=== PATIENT | female | born 1960 | race American Indian/Alaskan Native ===

== ENCOUNTER 2018-07-29 11:26 | Emergency (ER) | payer MEDICARE ==
[2018-07-29] MEDS ORDERED: CATAPRES ONE (11:40)
[2018-07-29] MEDS ORDERED: CATAPRES PO ONE (11:40)
[2018-07-29] MEDS ORDERED: NORCO 5/325 PO ONE (13:14)
--- NOTE | 2018-07-29 13:15 | Emergency Department Report ---
ED Lower Extremity HPI - General Chief Complaint: Upper Respiratory Infection Stated Complaint: FLU LIKE/KNEE PAIN Source: patient Mode of arrival: Wheelchair Limitations: No Limitations - History of Present Illness Initial Comments: This is a 57-year-old -[place] female who presents with left knee and ankle pain from a fall 1 week ago. Patient states she tripped on some carpet at home and fell on left side. Initially she was feeling pain to left medial knee which has progressed to left ankle. Pain is worse with weight bearing and touch. She noticed swelling a few hours after incident. She is applying ice with minimal improvement of symptoms. She also complains of non-productive cough for 2 weeks. Patient states she is recovering from a upper respiratory infection which she believe is better. She denies numbness or tingling, radiating pain, or weakness. MD Complaint: leg injury (left) Onset/Timin -: week(s) Injury: Knee: Left, Ankle: Left Type of Injury: unknown Place: home Severity: severe Severity scale (0 -10): 10 Improves With: nothing Worsens With: weight bearing, movement, palpation Context: fall Associated Symptoms: swelling, able to partially bear weight, ambulatory. denies: snap/pop sensation, numbness, tingling, unable to bear weight Treatments Prior to Arrival: cold therapy, NSAIDS - Related Data Previous Rx's Medication Instructions Recorded Last Taken Type Naproxen [Naprosyn] 500 mg PO TID #12 tablet 07/29/18 Unknown Rx traMADol [Ultram 50 MG tab] 50 mg PO Q6HR PRN #8 tablet 07/29/18 Unknown Rx Allergies Allergy/AdvReac Type Severity Reaction Status Date / Time No Known Allergies Allergy Unverified 07/29/18 11:34 ED Review of Systems ROS: Stated complaint: FLU LIKE/KNEE PAIN Other details as noted in HPI Constitutional: denies: chills, fever Respiratory: denies: cough, shortness of breath, wheezing Cardiovascular: denies: chest pain, palpitations Gastrointestinal: denies: abdominal pain, nausea, diarrhea Musculoskeletal: arthralgia (left knee and ankle pain). denies: back pain, joint swelling Skin: denies: rash, lesions Neurological: denies: headache, weakness, paresthesias Psychiatric: denies: anxiety, depression ED Past Medical Hx - Past Medical History Hx Hypertension: Yes Hx Arthritis: Yes (osteo) Hx COPD: Yes Additional medical history: abd hernia - Surgical History Past Surgical History?: Yes Additional Surgical History: gastric bypass-partial 2006 - Social History Smoking Status: Former Smoker Substance Use Type: None - Medications Home Medications: Home Medications Medication Instructions Recorded Confirmed Last Taken Type Naproxen [Naprosyn] 500 mg PO TID #12 tablet 07/29/18 Unknown Rx traMADol [Ultram 50 MG tab] 50 mg PO Q6HR PRN #8 tablet 07/29/18 Unknown Rx ED Physical Exam - General Limitations: No Limitations General appearance: alert, in no apparent distress, obese (morbidley obese) - Respiratory Respiratory exam: Present: normal lung sounds bilaterally. Absent: respiratory distress - Cardiovascular Cardiovascular Exam: Present: regular rate, normal rhythm. Absent: systolic murmur, diastolic murmur, rubs, gallop - GI/Abdominal GI/Abdominal exam: Present: soft, normal bowel sounds - Expanded Lower Extremity Exam Left Hip exam: Present: normal inspection, full ROM Upper Leg exam: Present: normal inspection, full ROM Knee exam: Present: full ROM (painful), tenderness (tenderness and swelling to medial patella), swelling, crepidus, pain w/ pronation/supination, full knee extension. Absent: abrasion, laceration, ecchymosis, deformity, dislocation, erythema, effusion Lower Leg exam: Present: normal inspection, full ROM Ankle exam: Present: tenderness (swelling, tenderness, and warmth to lateral malleolus), swelling. Absent: full ROM (painful), abrasion, laceration, ecchymosis, deformity, crepidus, dislocation, erythema, anterior draw sign Foot/Toe exam: Present: normal inspection, full ROM Neuro vascular tendon exam: Present: no vascular compromise Gait: Positive: observed and limited by pain - Neurological Exam Neurological exam: Present: alert, oriented X3 - Psychiatric Psychiatric exam: Present: normal affect, normal mood - Skin Skin exam: Present: warm, dry, intact, normal color. Absent: rash ED Course Vital Signs 07/29/18 07/29/18 07/29/18 11:29 11:41 13:57 Temperature 97.8 F Pulse Rate 80 80 Respiratory 18 18 Rate Blood Pressure 223/113 223/113 Blood Pressure [Right] O2 Sat by Pulse 92 Oximetry 07/29/18 17:15 Temperature Pulse Rate 64 Respiratory 16 Rate Blood Pressure Blood Pressure 170/87 [Right] O2 Sat by Pulse 96 Oximetry - Reevaluation(s) Reevaluation #1: 07/29/18 17:17 Blood pressure trended down prior to discharge 170/87. 07/29/18 17:17 ED Lower Extremity MDM - Radiology Data Radiology results: report reviewed LEFT KNEE, 3 views: History: Left knee pain and swelling. Moderate osteoarthritic changes are identified in all 3 compartments. No evidence for fracture, bone lesion or large joint effusion. IMPRESSION: Osteoarthritis. LEFT ANKLE, 3 views: History: left ankle pain. There is moderate diffuse soft tissue swelling and edema. The bony structures are intact. Mild osteoarthritis is noted at the ankle joint. Large plantar spur. IMPRESSION: Soft tissue swelling. Osteoarthritis. Plantar spur. EXAM: VL VENOUS DUPLEX LE LT HISTORY: r/o dvt of LLE COMPARISON: None. TECHNIQUE: Duplex Doppler ultrasound of the dot veins of the left lower extremity was performed. FINDINGS: The left common femoral vein, superficial femoral vein, and popliteal vein are patent, compressible, and demonstrate normal waveforms and augmentation. The left posterior tibial vein and peroneal vein are patent and compressible. IMPRESSION: No evidence of deep venous thrombosis of the left lower extremity. - Medical Decision Making Patient was examined by me. Patient is in no acute distress. Blood pressure elevated on arrival. Given [place] 5/325 mg by mouth once while in ER. Obtained x-rays of left knee and left ankle, and duplex Doppler of left lower extremity. Left knee, Osteoarthritis. Left ankle, Soft tissue swelling. Osteoarthritis. Plantar spur. No evidence of deep venous thrombosis of the left lower extremity. Patient informed of results. Start naproxen and tramadol for pain. Asymptomatic hypertension. Patient will continue current medication and follow up with her primary care provider. Given RICE therapy instructions. Plan discussed with patient to discharge home and treat outpatient. She agreed with ER plan. Patient discharged home in stable condition. Follow up with PCP in 2-3 days. Critical care attestation.: If time is entered above; I have spent that time in minutes in the direct care of this critically ill patient, excluding procedure time. ED Disposition Clinical Impression: Left medial knee pain, Left lateral ankle pain, Asymptomatic hypertension Osteoarthritis Qualifiers: Osteoarthritis location: multiple joints Osteoarthritis type: primary Qualified Code(s): M15.0 - Primary generalized (osteo)arthritis Sprain of ankle, left Qualifiers: Encounter type: initial encounter Involved ligament of ankle: anterior talofibular ligament Qualified Code(s): S93.492A - Sprain of other ligament of left ankle, initial encounter Disposition: TO HOME OR SELFCARE Is pt being admited?: No Does the pt Need Aspirin: No Condition: Stable Instructions: Osteoarthritis (ED), Hypertension (ED), Arthralgia (ED) Additional Instructions: Rest Use ice or heat on affected area for 20 minutes and off for 2 hours. Take pain medication as needed for pain. Follow up with Primary Care Provider in 2-3 days. Prescriptions: Naproxen [Naprosyn] 500 mg PO TID #12 tablet traMADol [Ultram 50 MG tab] 50 mg PO Q6HR PRN #8 tablet PRN Reason: Pain Referrals: Jermaine JOHNSON [Other] - 3-5 Days CABRERA BROWN MD [Staff Physician] - 3-5 Days [facility] [Provider Group] - 3-5 Days Time of Disposition: 16:47
--- NOTE | 2018-07-29 14:45 | XRay Report ---
LEFT KNEE, 3 views: History: Left knee pain and swelling. Moderate osteoarthritic changes are identified in all 3 compartments. No evidence for fracture, bone lesion or large joint effusion. IMPRESSION: Osteoarthritis.
--- NOTE | 2018-07-29 14:46 | XRay Report ---
LEFT ANKLE, 3 views: History: left ankle pain. There is moderate diffuse soft tissue swelling and edema. The bony structures are intact. Mild osteoarthritis is noted at the ankle joint. Large plantar spur. IMPRESSION: Soft tissue swelling. Osteoarthritis. Plantar spur.
--- NOTE | 2018-07-29 16:44 | Vascular Lab Report ---
FINAL REPORT EXAM: VL VENOUS DUPLEX LE LT HISTORY: r/o dvt of LLE COMPARISON: None. TECHNIQUE: Duplex Doppler ultrasound of the dot veins of the left lower extremity was performed. FINDINGS: The left common femoral vein, superficial femoral vein, and popliteal vein are patent, compressible, and demonstrate normal waveforms and augmentation. The left posterior tibial vein and peroneal vein a re patent and compressible. IMPRESSION: No evidence of deep venous thrombosis of the left lower extremity.
[2018-07-29 17:16] VITALS: BP 170/87
== END 2018-07-29 17:24 | disposition home or self-care (01) ==
LOC: ED 11:26
DX: S93.492A Sprain of other ligament of left ankle, initial encounter (principal); M15.0 Primary generalized (osteo)arthritis; M25.572 Pain in left ankle and joints of left foot; I10 Essential (primary) hypertension; J44.9 Chronic obstructive pulmonary disease, unspecified; Z87.891 Personal history of nicotine dependence; W01.0XXA Fall on same level from slipping, tripping and stumbling without subsequent striking against object, initial encounter; Y93.89 Activity, other specified; Y99.8 Other external cause status; Y92.019 Unspecified place in single-family (private) house as the place of occurrence of the external cause

== ENCOUNTER 2019-05-19 14:09 | Inpatient (IN) | payer MEDICARE ==
--- NOTE | 2019-05-19 14:51 | XRay Report ---
CHEST 2 VIEWS INDICATION / CLINICAL INFORMATION: Shortness of breath. COMPARISON: None available. FINDINGS: SUPPORT DEVICES: None. HEART / MEDIASTINUM: There is moderate cardiomegaly and prominence of the central pulmonary vessels. LUNGS / PLEURA: There is mild diffuse interstitial lung disease, right greater than left. There is ol d calcified granulomatous disease in the right hemithorax. No pneumothorax. ADDITIONAL FINDINGS: No significant additional findings. IMPRESSION: Cardiomegaly with mild congestive heart failure. Signer Name: Xavier Perdomo MD Signed: 05/19/2019 2:47 PM Workstation Name: [id number]
--- NOTE | 2019-05-19 15:21 | Emergency Department Report ---
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 Note states patient was satting 76% on room air. Patient states she has been short of breath for the past month and it seemed to worsen today. O2, history of DVT/PE, leg pain, recent long travel, recent surgery, or history of ID/CVA. She states she has chronic swelling of the legs, but denies any worsening. Patient also denies any known history of CHF recurrent chest pain. MD Complaint: shortness of breath Known History Of: COPD - Related Data Previous Rx's Medication Instructions Recorded Last Taken Type Naproxen [Naprosyn] 500 mg PO TID #12 tablet 07/29/18 Unknown Rx traMADol [Ultram 50 MG tab] 50 mg PO Q6HR PRN #8 tablet 07/29/18 Unknown Rx Allergies Allergy/AdvReac Type Severity Reaction Status Date / Time No Known Allergies Allergy Unverified 07/29/18 11:34 ED Review of Systems ROS: Stated complaint: SOB/HX COPD/SENT BY Other details as noted in HPI Comment: All other systems reviewed and negative Constitutional: denies: chills, fever Eyes: denies: vision change ENT: denies: throat pain Respiratory: orthopnea, shortness of breath, SOB with exertion, SOB at rest. denies: cough Cardiovascular: denies: chest pain, palpitations, syncope Gastrointestinal: denies: abdominal pain, nausea, vomiting Musculoskeletal: denies: back pain Skin: denies: rash, lesions Neurological: denies: headache, weakness, paresthesias Psychiatric: denies: anxiety, depression Hematological/Lymphatic: denies: easy bleeding, easy bruising ED Past Medical Hx - Past Medical History Previous Medical History?: Yes Hx Hypertension: Yes Hx Arthritis: Yes (osteo) Hx COPD: Yes Additional medical history: abd hernia - Surgical History Past Surgical History?: Yes Additional Surgical History: gastric bypass-partial 2006 - Social History Smoking Status: Former Smoker Substance Use Type: None - Medications Home Medications: Home Medications Medication Instructions Recorded Confirmed Last Taken Type Naproxen [Naprosyn] 500 mg PO TID #12 tablet 07/29/18 Unknown Rx traMADol [Ultram 50 MG tab] 50 mg PO Q6HR PRN #8 tablet 07/29/18 Unknown Rx ED Physical Exam - General Limitations: No Limitations General appearance: alert, in no apparent distress - Head Head exam: Present: atraumatic, normocephalic - Eye Eye exam: Present: normal appearance. Absent: scleral icterus - Neck Neck exam: Present: normal inspection - Respiratory Respiratory exam: Present: rhonchi. Absent: respiratory distress, wheezes - Cardiovascular Cardiovascular Exam: Present: regular rate, normal rhythm. Absent: systolic murmur, diastolic murmur, rubs, gallop - GI/Abdominal GI/Abdominal exam: Present: soft, normal bowel sounds - Extremities Exam Extremities exam: Present: pedal edema (bilateral pitting edema and noted). Absent: calf tenderness - Neurological Exam Neurological exam: Present: alert, oriented X3 - Psychiatric Psychiatric exam: Present: normal affect, normal mood - Skin Skin exam: Present: warm, dry, intact, normal color. Absent: rash ED Course Vital Signs 05/19/19 05/19/19 05/19/19 11:10 11:20 15:10 Pulse Rate 59 L 52 L Respiratory 10 L 14 Rate Blood Pressure 164/95 O2 Sat by Pulse 98 99 93 Oximetry 05/19/19 05/19/19 05/19/19 15:12 15:28 15:30 Pulse Rate Respiratory 18 11 L Rate Blood Pressure 152/81 O2 Sat by Pulse 95 98 Oximetry 05/19/19 05/19/19 15:45 18:04 Pulse Rate 60 Respiratory 21 Rate Blood Pressure 166/83 166/83 O2 Sat by Pulse 94 Oximetry ED Medical Decision Making - Lab Data Result diagrams: 05/19/19 15:02 05/19/19 15:02 Lab Results 05/19/19 05/19/19 05/19/19 Range/Units 15:02 15:02 15:02 WBC 8.5 (4.5-11.0) K/mm3 RBC 4.70 (3.65-5.03) M/mm3 Hgb 12.6 (10.1-14.3) gm/dl Hct 42.5 (30.3-42.9) % MCV 91 (79-97) fl MCH 27 L (28-32) pg MCHC 30 (30-34) % RDW 18.2 H (13.2-15.2) % Plt Count 265 (140-440) K/mm3 Lymph % (Auto) 24.1 (13.4-35.0) % [place] % (Auto) 7.0 (0.0-7.3) % Eos % (Auto) 1.0 (0.0-4.3) % Baso % (Auto) 1.1 (0.0-1.8) % Lymph # 2.1 (1.2-5.4) K/mm3 [place] # 0.6 (0.0-0.8) K/mm3 Eos # 0.1 (0.0-0.4) K/mm3 Baso # 0.1 (0.0-0.1) K/mm3 Seg Neutrophils % 66.8 (40.0-70.0) % Seg Neutrophils # 5.7 (1.8-7.7) K/mm3 PT 13.9 (12.2-14.9) Sec. INR 1.08 (0.87-1.13) APTT 31.6 (24.2-36.6) Sec. POC ABG pH (7.35-7.45) POC ABG pCO2 (35-45) POC ABG pO2 (80-105) POC ABG HCO3 (22-26 mml/L) POC ABG Total CO2 (23-27mmol/L) POC ABG O2 Sat POC ABG Base Excess ((-2) - (+3)mmol/L) FiO2 % Sodium 146 H (137-145) mmol/L Potassium 4.5 (3.6-5.0) mmol/L Chloride 104.0 (98-107) mmol/L Carbon Dioxide 29 (22-30) mmol/L Anion Gap 18 mmol/L BUN 18 H (7-17) mg/dL Creatinine 1.5 H (0.7-1.2) mg/dL Estimated GFR 43 ml/min BUN/Creatinine Ratio 12 % Glucose 93 (65-100) mg/dL Calcium 9.4 (8.4-10.2) mg/dL Magnesium (1.7-2.3) mg/dL Total Bilirubin 0.40 (0.1-1.2) mg/dL AST 21 (5-40) units/L ALT 16 (7-56) units/L Alkaline Phosphatase 115 (35-129) units/L Total Creatine Kinase (30-135) units/L Troponin T (0.00-0.029) ng/mL NT-Pro-B Natriuret Pep (0-900) pg/mL Total Protein 8.4 H (6.3-8.2) g/dL Albumin 3.5 L (3.9-5) g/dL Albumin/Globulin Ratio 0.7 % 05/19/19 05/19/19 05/19/19 Range/Units 15:19 15:21 15:21 WBC (4.5-11.0) K/mm3 RBC (3.65-5.03) M/mm3 Hgb (10.1-14.3) gm/dl Hct (30.3-42.9) % MCV (79-97) fl MCH (28-32) pg MCHC (30-34) % RDW (13.2-15.2) % Plt Count (140-440) K/mm3 Lymph % (Auto) (13.4-35.0) % [place] % (Auto) (0.0-7.3) % Eos % (Auto) (0.0-4.3) % Baso % (Auto) (0.0-1.8) % Lymph # (1.2-5.4) K/mm3 [place] # (0.0-0.8) K/mm3 Eos # (0.0-0.4) K/mm3 Baso # (0.0-0.1) K/mm3 Seg Neutrophils % (40.0-70.0) % Seg Neutrophils # (1.8-7.7) K/mm3 PT (12.2-14.9) Sec. INR (0.87-1.13) APTT (24.2-36.6) Sec. POC ABG pH (7.35-7.45) POC ABG pCO2 (35-45) POC ABG pO2 (80-105) POC ABG HCO3 (22-26 mml/L) POC ABG Total CO2 (23-27mmol/L) POC ABG O2 Sat POC ABG Base Excess ((-2) - (+3)mmol/L) FiO2 % Sodium (137-145) mmol/L Potassium (3.6-5.0) mmol/L Chloride (98-107) mmol/L Carbon Dioxide (22-30) mmol/L Anion Gap mmol/L BUN (7-17) mg/dL Creatinine (0.7-1.2) mg/dL Estimated GFR ml/min BUN/Creatinine Ratio % Glucose (65-100) mg/dL Calcium (8.4-10.2) mg/dL Magnesium 2.30 (1.7-2.3) mg/dL Total Bilirubin (0.1-1.2) mg/dL AST (5-40) units/L ALT (7-56) units/L Alkaline Phosphatase (35-129) units/L Total Creatine Kinase 94 (30-135) units/L Troponin T < 0.010 (0.00-0.029) ng/mL NT-Pro-B Natriuret Pep 2138 H (0-900) pg/mL Total Protein (6.3-8.2) g/dL Albumin (3.9-5) g/dL Albumin/Globulin Ratio % 05/19/ Range/Units 15:28 WBC (4.5-11.0) K/mm3 RBC (3.65-5.03) M/mm3 Hgb (10.1-14.3) gm/dl Hct (30.3-42.9) % MCV (79-97) fl MCH (28-32) pg MCHC (30-34) % RDW (13.2-15.2) % Plt Count (140-440) K/mm3 Lymph % (Auto) (13.4-35.0) % [place] % (Auto) (0.0-7.3) % Eos % (Auto) (0.0-4.3) % Baso % (Auto) (0.0-1.8) % Lymph # (1.2-5.4) K/mm3 [place] # (0.0-0.8) K/mm3 Eos # (0.0-0.4) K/mm3 Baso # (0.0-0.1) K/mm3 Seg Neutrophils % (40.0-70.0) % Seg Neutrophils # (1.8-7.7) K/mm3 PT (12.2-14.9) Sec. INR (0.87-1.13) APTT (24.2-36.6) Sec. POC ABG pH 7.331 L (7.35-7.45) POC ABG pCO2 64.8 H (35-45) POC ABG pO2 74 L (80-105) POC ABG HCO3 34.2 (22-26 mml/L) POC ABG Total CO2 36 (23-27mmol/L) POC ABG O2 Sat 93 POC ABG Base Excess 8 ((-2) - (+3)mmol/L) FiO2 36 % Sodium (137-145) mmol/L Potassium (3.6-5.0) mmol/L Chloride (98-107) mmol/L Carbon Dioxide (22-30) mmol/L Anion Gap mmol/L BUN (7-17) mg/dL Creatinine (0.7-1.2) mg/dL Estimated GFR ml/min BUN/Creatinine Ratio % Glucose (65-100) mg/dL Calcium (8.4-10.2) mg/dL Magnesium (1.7-2.3) mg/dL Total Bilirubin (0.1-1.2) mg/dL AST (5-40) units/L ALT (7-56) units/L Alkaline Phosphatase (35-129) units/L Total Creatine Kinase (30-135) units/L Troponin T (0.00-0.029) ng/mL NT-Pro-B Natriuret Pep (0-900) pg/mL Total Protein (6.3-8.2) g/dL Albumin (3.9-5) g/dL Albumin/Globulin Ratio % - Radiology Data Radiology results: report reviewed CHEST 2 VIEWS INDICATION / CLINICAL INFORMATION: Shortness of breath. COMPARISON: None available. FINDINGS: SUPPORT DEVICES: None. HEART / MEDIASTINUM: There is moderate cardiomegaly and prominence of the central pulmonary vessels. LUNGS / PLEURA: There is mild diffuse interstitial lung disease, right greater than left. There is old calcified granulomatous disease in the right hemithorax. No pneumothorax. ADDITIONAL FINDINGS: No significant additional findings. IMPRESSION: Cardiomegaly with mild congestive heart failure. - Medical Decision Making Patient sent from Dr. Sethi, Pumlnology, due to shortness of breath and hypoxia. She was satting at 76% on room air and office. She has history of COPD, hypertension, and sleep apnea. Patient now satting at 98% with 4 L nasal cannula. Chest x-ray shows cardiomegaly with mild congestive heart failure. BNP is >1 2000. Troponin negative. All new onset CHF. Discussed patient with Dr. Lam- will admit to hospital medicine. Dr. Sethi to consult on patient upon admission. Critical care attestation.: If time is entered above; I have spent that time in minutes in the direct care of this critically ill patient, excluding procedure time. ED Disposition Clinical Impression: New onset of congestive heart failure, Hypoxia Disposition: OP ADMIT IP TO THIS HOSP Is pt being admited?: Yes Condition: Stable
[2019-05-19 15:32] LABS: Basophils # (Auto) 0.1 K/mm3 (0.0-0.1); Basophils % (Auto) 1.1 % (0.0-1.8); Eosinophils # (Auto) 0.1 K/mm3 (0.0-0.4); Lymphocytes # (Auto) 2.1 K/mm3 (1.2-5.4); Lymphocytes % (Auto) 24.1 % (13.4-35.0); Mean Corpuscular HGB Conc 30 % (30-34); Mean Corpuscular Volume 91 fl (79-97); Monocytes # (Auto) 0.6 K/mm3 (0.0-0.8); Platelet Count 265 K/mm3 (140-440); Red Cell Distribution Width 18.2 % (13.2-15.2)
[2019-05-19 15:42] LABS: INR 1.08 (0.87-1.13)
[2019-05-19 15:43] LABS: Partial Thromboplastin Time 31.6 Sec. (24.2-36.6)
[2019-05-19 15:46] LABS: Albumin 3.5 g/dL (3.9-5); Calcium 9.4 mg/dL (8.4-10.2)
[2019-05-19 15:54] LABS: Hematocrit 42.5 % (30.3-42.9); Hemoglobin 12.6 gm/dl (10.1-14.3)
--- NOTE | 2019-05-19 16:08 | Event Note ---
Date of service: 05/19/19 Face to Face: Pulmonology: Dr. Chappell This is a 58-year-old female, morbidly obese, history of sleep apnea, noncompliance, hypertension, history of COPD, sent to the emergency room by her primary floral designer salesperson for admission for new onset hypoxia. Patient has chronic shortness of breath, chronic cough, she denies DVT and pulmonary embolus risk factors. On exam, she is found to be hypoxic, with a PaO2 of 74% on room air. She states that this is new for her. Laboratory studies suggest renal insuff iciency, however, she does not have crackles or rales. She will be placed on supplemental oxygen, she'll be given a trial bolus of normal saline, there may be a prerenal component, or cardiorenal syndrome present. Plan as discussed with her floral designer salesperson of record, and admitted to the medical service for medical optimization. Vital Signs 05/19/19 05/19/19 05/19/19 11:10 11:20 15:10 Pulse Rate 59 L 52 L Respiratory 10 L 14 Rate Blood Pressure 164/95 O2 Sat by Pulse 98 99 93 Oximetry 05/19/19 15:28 Pulse Rate Respiratory Rate Blood Pressure O2 Sat by Pulse 95 Oximetry Lab Results 05/19/19 05/19/19 05/19/19 Range/Units 15:02 15:02 15:02 WBC 8.5 (4.5-11.0) K/mm3 RBC 4.70 (3.65-5.03) M/mm3 Hgb 12.6 (10.1-14.3) gm/dl Hct 42.5 (30.3-42.9) % MCV 91 (79-97) fl MCH 27 L (28-32) pg MCHC 30 (30-34) % RDW 18.2 H (13.2-15.2) % Plt Count 265 (140-440) K/mm3 Lymph % (Auto) 24.1 (13.4-35.0) % Bryan % (Auto) 7.0 (0.0-7.3) % Eos % (Auto) 1.0 (0.0-4.3) % Baso % (Auto) 1.1 (0.0-1.8) % Lymph # 2.1 (1.2-5.4) K/mm3 Bryan # 0.6 (0.0-0.8) K/mm3 Eos # 0.1 (0.0-0.4) K/mm3 Baso # 0.1 (0.0-0.1) K/mm3 Seg Neutrophils % 66.8 (40.0-70.0) % Seg Neutrophils # 5.7 (1.8-7.7) K/mm3 PT 13.9 (12.2-14.9) Sec. INR 1.08 (0.87-1.13) APTT 31.6 (24.2-36.6) Sec. POC ABG pH (7.35-7.45) POC ABG pCO2 (35-45) POC ABG pO2 (80-105) POC ABG HCO3 (22-26 mml/L) POC ABG Total CO2 (23-27mmol/L) POC ABG O2 Sat POC ABG Base Excess ((-2) - (+3)mmol/L) FiO2 % Sodium 146 H (137-145) mmol/L Potassium 4.5 (3.6-5.0) mmol/L Chloride 104.0 (98-107) mmol/L Carbon Dioxide 29 (22-30) mmol/L Anion Gap 18 mmol/L BUN 18 H (7-17) mg/dL Creatinine 1.5 H (0.7-1.2) mg/dL Estimated GFR 43 ml/min BUN/Creatinine Ratio 12 % Glucose 93 (65-100) mg/dL Calcium 9.4 (8.4-10.2) mg/dL Magnesium (1.7-2.3) mg/dL Total Bilirubin 0.40 (0.1-1.2) mg/dL AST 21 (5-40) units/L ALT 16 (7-56) units/L Alkaline Phosphatase 115 (35-129) units/L Total Creatine Kinase (30-135) units/L Troponin T (0.00-0.029) ng/mL NT-Pro-B Natriuret Pep (0-900) pg/mL Total Protein 8.4 H (6.3-8.2) g/dL Albumin 3.5 L (3.9-5) g/dL Albumin/Globulin Ratio 0.7 % 05/19/19 05/19/19 05/19/19 Range/Units 15:19 15:21 15:21 WBC (4.5-11.0) K/mm3 RBC (3.65-5.03) M/mm3 Hgb (10.1-14.3) gm/dl Hct (30.3-42.9) % MCV (79-97) fl MCH (28-32) pg MCHC (30-34) % RDW (13.2-15.2) % Plt Count (140-440) K/mm3 Lymph % (Auto) (13.4-35.0) % Bryan % (Auto) (0.0-7.3) % Eos % (Auto) (0.0-4.3) % Baso % (Auto) (0.0-1.8) % Lymph # (1.2-5.4) K/mm3 Bryan # (0.0-0.8) K/mm3 Eos # (0.0-0.4) K/mm3 Baso # (0.0-0.1) K/mm3 Seg Neutrophils % (40.0-70.0) % Seg Neutrophils # (1.8-7.7) K/mm3 PT (12.2-14.9) Sec. INR (0.87-1.13) APTT (24.2-36.6) Sec. POC ABG pH (7.35-7.45) POC ABG pCO2 (35-45) POC ABG pO2 (80-105) POC ABG HCO3 (22-26 mml/L) POC ABG Total CO2 (23-27mmol/L) POC ABG O2 Sat POC ABG Base Excess ((-2) - (+3)mmol/L) FiO2 % Sodium (137-145) mmol/L Potassium (3.6-5.0) mmol/L Chloride (98-107) mmol/L Carbon Dioxide (22-30) mmol/L Anion Gap mmol/L BUN (7-17) mg/dL Creatinine (0.7-1.2) mg/dL Estimated GFR ml/min BUN/Creatinine Ratio % Glucose (65-100) mg/dL Calcium (8.4-10.2) mg/dL Magnesium 2.30 (1.7-2.3) mg/dL Total Bilirubin (0.1-1.2) mg/dL AST (5-40) units/L ALT (7-56) units/L Alkaline Phosphatase (35-129) units/L Total Creatine Kinase 94 (30-135) units/L Troponin T < 0.010 (0.00-0.029) ng/mL NT-Pro-B Natriuret Pep 2138 H (0-900) pg/mL Total Protein (6.3-8.2) g/dL Albumin (3.9-5) g/dL Albumin/Globulin Ratio % 05/19/19 Range/Units 15:28 WBC (4.5-11.0) K/mm3 RBC (3.65-5.03) M/mm3 Hgb (10.1-14.3) gm/dl Hct (30.3-42.9) % MCV (79-97) fl MCH (28-32) pg MCHC (30-34) % RDW (13.2-15.2) % Plt Count (140-440) K/mm3 Lymph % (Auto) (13.4-35.0) % Bryan % (Auto) (0.0-7.3) % Eos % (Auto) (0.0-4.3) % Baso % (Auto) (0.0-1.8) % Lymph # (1.2-5.4) K/mm3 Bryan # (0.0-0.8) K/mm3 Eos # (0.0-0.4) K/mm3 Baso # (0.0-0.1) K/mm3 Seg Neutrophils % (40.0-70.0) % Seg Neutrophils # (1.8-7.7) K/mm3 PT (12.2-14.9) Sec. INR (0.87-1.13) APTT (24.2-36.6) Sec. POC ABG pH 7.331 L (7.35-7.45) POC ABG pCO2 64.8 H (35-45) POC ABG pO2 74 L (80-105) POC ABG HCO3 34.2 (22-26 mml/L) POC ABG Total CO2 36 (23-27mmol/L) POC ABG O2 Sat 93 POC ABG Base Excess 8 ((-2) - (+3)mmol/L) FiO2 36 % Sodium (137-145) mmol/L Potassium (3.6-5.0) mmol/L Chloride (98-107) mmol/L Carbon Dioxide (22-30) mmol/L Anion Gap mmol/L BUN (7-17) mg/dL Creatinine (0.7-1.2) mg/dL Estimated GFR ml/min BUN/Creatinine Ratio % Glucose (65-100) mg/dL Calcium (8.4-10.2) mg/dL Magnesium (1.7-2.3) mg/dL Total Bilirubin (0.1-1.2) mg/dL AST (5-40) units/L ALT (7-56) units/L Alkaline Phosphatase (35-129) units/L Total Creatine Kinase (30-135) units/L Troponin T (0.00-0.029) ng/mL NT-Pro-B Natriuret Pep (0-900) pg/mL Total Protein (6.3-8.2) g/dL Albumin (3.9-5) g/dL Albumin/Globulin Ratio %
[2019-05-19] MEDS ORDERED: cloNIDine 0.1 MG TAB PO ONE (16:14)
[2019-05-19] MEDS ORDERED: SODIUM CHLORIDE 0.9% 250ML 250 ML IV ONE (16:15)
[2019-05-19] MEDS ORDERED: FUROSEMIDE 40 MG/4 ML INJ IV ONE (16:24)
[2019-05-19] MEDS ORDERED: amLODIPine 5 MG TAB PO ONE (16:25)
--- NOTE | 2019-05-19 17:19 | History and Physical Report ---
History of Present Illness Chief complaint: I cant breathe History of present illness: 58 YO Female with Super Morbid Obesity, Obesity Hypoventilation Syndrome(Noncompliant with CPAP), HTN, OA, COPD presents to ED for evaluation. Pt states that she has experienced shortness of breath over the past 1 month with progressively worsening symptoms over the past 1 week. Pt acknowledges dypsnea on exertion, dypsnea at rest, decreased exercise tolerance, leg edema, Orthopnea/PND. Pt seen and evaluated by her Bin Packer, Dr. Sethi for shortness of breath. Pt was found to have pulse oximetry of 76% on room air. Pt instructed to seek further care at [facility]. PT seen and evaluated in ED and found to have symptoms consistent with CHF Decompensation, Acute Hypoxemic Respiratory Failure, Acute Kidney Injury. Pt denies fever, chills, CP, Palpitations, NVD, Trauma, Productive cough, BRBPR, Syncope, Individual/Family history of DVT/PE/Bleeding/Blood Clotting Disorders, prolonged travel/immobility, or recent ill contacts. No prior admission for review. All listed medication reconciled at time of admission. Past History Past Medical History: other (see hpi) Past Surgical History: Other (Gastric Bypass) Social history: . denies: smoking, alcohol abuse, prescription drug abuse Family history: diabetes, hypertension Medications and Allergies Allergies Allergy/AdvReac Type Severity Reaction Status Date / Time No Known Allergies Allergy Unverified 07/29/18 11:34 Home Medications Medication Instructions Recorded Confirmed Last Taken Type Atenolol [Tenormin] 80 mg PO QDAY 05/19/19 05/19/19 Unknown History Gabapentin 300 mg PO BID 05/19/19 05/19/19 Unknown History Lisinopril [Zestril TAB] 40 mg PO QDAY 05/19/19 05/19/19 Unknown History Multivit-Minerals/Folic Acid [One 0.4 mg PO 05/19/19 Unknown History Daily Womens 50 Plus Tab] Tylenol Pm Ex-Strength Caplet 650 mg PO 05/19/19 Unknown History Review of Systems Constitutional: no weight loss, no weight gain, no fever, no chills Ears, nose, mouth and throat: no ear pain, no ear discharge, no tinnitis, no nose pain, no nasal congestion, no nasal discharge Breasts: no change in shape, no swelling, no mass Cardiovascular: orthopnea, shortness of breath, dyspnea on exertion, paroxysmal nocturnal dyspnea, decreased exercise tolerance, no chest pain, no palpitations, no rapid/irregular heart beat, no edema, no lightheadedness Respiratory: shortness of breath, no cough, no cough with sputum, no excessive sputum Gastrointestinal: no abdominal pain, no nausea, no vomiting, no diarrhea, no constipation Genitourinary Female: no pelvic pain, no flank pain, no menorrhagia, no dysuria, no urinary frequency, no urgency, no stress incontinence Rectal: no pain, no incontinence, no bleeding Musculoskeletal: no neck pain, no shooting arm pain, no arm numbness/tingling, no low back pain Integumentary: no rash, no pruritis, no redness, no sores, no wounds, no j aundice Neurological: no head injury, no transient paralysis, no paralysis, no tingling, no seizures Psychiatric: no anxiety, no memory loss, no change in sleep habits, no sleep disturbances, no insomnia, no hypersomnia, no change in libido Endocrine: no cold intolerance, no heat intolerance, no polyphagia, no excessive thirst, no polydipsia, no polyuria Hematologic/Lymphatic: no easy bruising, no easy bleeding, no lymphadenopathy, no lymphedema Allergic/Immunologic: no urticaria, no allergic rhinitis, no persistent infections, no angioedema Exam - Constitutional Vitals: Temp Pulse Resp BP Pulse Ox 52 L 21 166/83 94 05/19/19 11:20 05/19/19 15:45 05/19/19 15:45 05/19/19 15:45 General appearance: Present: no acute distress, obese - EENT Eyes: Present: PERRL ENT: hearing intact, clear oral mucosa - Neck Neck: Present: supple, normal ROM - Respiratory Respiratory effort: normal Respiratory: bilateral: diminished, rhonchi - Cardiovascular Heart Sounds: Present: S1 & S2. Absent: rub, click - Extremities Extremities: pulses symmetrical Extremity abnormal: edema Peripheral Pulses: within normal limits - Abdominal General gastrointestinal: Present: soft, non-tender, non-distended, normal bowel sounds Female genitourinary: Present: normal - Integumentary Integumentary: Present: clear, warm, dry - Musculoskeletal Musculoskeletal: gait normal, strength equal bilaterally - Psychiatric Psychiatric: appropriate mood/affect, intact judgment & insight - Neurologic Neurologic: CNII-XII intact, moves all extremities Results - Labs CBC & Chem 7: 05/19/19 15:02 05/19/19 15:02 Labs: Abnormal lab results 05/19/19 05/19/19 05/19/19 Range/Units 15:02 15:02 15:19 MCH 27 L (28-32) pg RDW 18.2 H (13.2-15.2) % POC ABG pH (7.35-7.45) POC ABG pCO2 (35-45) POC ABG pO2 (80-105) Sodium 146 H (137-145) mmol/L BUN 18 H (7-17) mg/dL Creatinine 1.5 H (0.7-1.2) mg/dL NT-Pro-B Natriuret Pep 2138 H (0-900) pg/mL Total Protein 8.4 H (6.3-8.2) g/dL Albumin 3.5 L (3.9-5) g/dL 05/19/19 Range/Units 15:28 MCH (28-32) pg RDW (13.2-15.2) % POC ABG pH 7.331 L (7.35-7.45) POC ABG pCO2 64.8 H (35-45) POC ABG pO2 74 L (80-105) Sodium (137-145) mmol/L BUN (7-17) mg/dL Creatinine (0.7-1.2) mg/dL NT-Pro-B Natriuret Pep (0-900) pg/mL Total Protein (6.3-8.2) g/dL Albumin (3.9-5) g/dL Assessment and Plan - Patient Problems (1) CHF (congestive heart failure) Current Visit: Yes Status: Acute Qualifiers: Heart failure type: systolic Heart failure chronicity: acute Qualified Code(s): I50.21 - Acute systolic (congestive) heart failure Plan to address problem: Admit to Telemetry, Echo, Strict I/O, daily weight, BNP, thyroid panel, magnesium level, chest x ray, supplemental oxygen, pulse oximetry, (2) CAROLANN (acute kidney injury) Current Visit: Yes Status: Acute Plan to address problem: Monitor UOP w shift, Nephrology consulted, avoid nephrotoxic agents, BMP, ivf resuscitation therapy as tolerated. (3) Respiratory failure Current Visit: Yes Status: Acute Qualifiers: Chronicity: acute Respiratory failure complication: hypoxia Qualified Code(s): J96.01 - Acute respiratory failure with hypoxia Plan to address problem: Admit to telemetry, supplemental oxygen, pulse oximetry, NIPPV as clinically indicated, CT chest, chest x ray, ABG, pulmonology consulted. (4) Obesity hypoventilation syndrome Current Visit: Yes Status: Acute Plan to address problem: supplemental oxygen, NIPPV as clinically indicated, pulse oximetry, balanced diet, increased physical activity as tolerated. Outpatient bariatric surgery. (5) Hypernatremia Current Visit: Yes Status: Acute Plan to address problem: Nephrology consulted, IVF resuscitation as tolerated. (6) DVT prophylaxis Current Visit: Yes Status: Acute Plan to address problem: SCD to BLE while in bed,
[2019-05-19] MEDS ORDERED: ALBUTEROL 2.5 MG/3 ML NEBU IH PRN (17:20)
[2019-05-19] MEDS ORDERED: ONDANSETRON 4 MG/2 ML INJ IV PRN (17:20)
--- NOTE | 2019-05-19 19:34 | Cat Scan Report ---
CT OF THE CHEST WITHOUT CONTRAST INDICATION / CLINICAL INFORMATION: Dyspnea. History of COPD. TECHNIQUE: All CT scans at this location are performed using CT dose reduction for ALARA by means of automated e xposure control. COMPARISON: None available. FINDINGS: There are multiple calcified right paratracheal and pretracheal lymph nodes. There are a couple of ca lcified granuloma in the right upper lobe. There is mild bibasilar subsegmental atelectasis. The trac heobronchial tree is normal. No emphysematous changes are seen. There is no evidence of adenopathy, e ffusion or mass. There are surgical changes involving the stomach characteristic of a vertical gastric sleeve procedur e without complication. The visualized upper abdomen is otherwise unremarkable. There is mild spondyl osis. IMPRESSION: No acute abnormality. Signer Name: Xavier Perdomo MD Signed: 05/19/2019 7:29 PM Workstation Name: [id number]
[2019-05-19] MEDS: GABAPENTIN 300 MG CAP PO SCH (21:39)
[2019-05-20 09:17] LABS: Eosinophils % (Auto) 0.6 % (0.0-4.3); Monocytes # (Auto) 0.6 K/mm3 (0.0-0.8)
[2019-05-20] MEDS: atenoloL 50 MG TAB PO SCH (09:36)
[2019-05-20] MEDS: GABAPENTIN 300 MG CAP PO SCH ×2 (09:36→21:26)
[2019-05-20 09:41] LABS: Calcium 9.5 mg/dL (8.4-10.2)
[2019-05-20 09:48] LABS: Hematocrit 41.5 % (30.3-42.9); Hemoglobin 12.4 gm/dl (10.1-14.3); Lymphocytes % (Auto) 18.5 % (13.4-35.0); Mean Corpuscular HGB Conc 30 % (30-34); Mean Corpuscular Volume 90 fl (79-97); Platelet Count 252 K/mm3 (140-440); Red Blood Count 4.61 M/mm3 (3.65-5.03)
[2019-05-20 09:49] LABS: Basophils % (Auto) 0.4 % (0.0-1.8); Lymphocytes # (Auto) 1.5 K/mm3 (1.2-5.4)
[2019-05-20] MEDS ORDERED: LISINOPRIL 20 MG TAB PO SCH (10:00)
--- NOTE | 2019-05-20 13:49 | Consultation ---
History of Present Illness Consult date: 05/20/19 Reason for consult: dyspnea, COPD, obstructive sleep apnea History of present illness: PULMONARY AND CRITICAL CARE CONSULTATION DR. CARDOZA THANK YOU FOR ASKING US TO PARTICIPATE IN THE CARE OF THIS PATIENT. 58 YO Female with Super Morbid Obesity, Obesity Hypoventilation Syndrome(Noncompliant with CPAP), HTN, OA, COPD,GE reflux,allergic rhinitis,Gout presents to ED for evaluation. Pt states that she has experienced shortness of breath over the past 1 month with progressively worsening symptoms over the past 1 week. Pt acknowledges dypsnea on exertion, dypsnea at rest, decreased exercise tolerance, leg edema, Orthopnea/PND. Pt seen and evaluated by ME in my office for shortness of breath. Pt was found to have pulse oximetry of 76% on room air. Pt instructed to seek further care at [facility]. PT seen and evaluated in ED and found to have symptoms consistent with CHF Decompensation, Acute Hypoxemic Respiratory Failure, Acute Kidney Injury. Pt denies fever, chills, CP, Palpitations, NVD, Trauma, Productive cough, BRBPR, Syncope, Individual/Family history of DVT/PE/Bleeding/Blood Clotting Disorders, prolonged travel/immobility, or recent ill contacts. No prior admission for review. Patient followed by Dr Sarah Henderson in her family medicine clinic in [facility]. Patient has history of smoking 1 to 2 packs a day for 38 years. Stopped smoking 4 years ago. Patient denies alcohol or drug abuse. 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 Patients chest xray reported cardiomegaly with mild CHF. Patient has CT of chest with out contrast, reported calcified hilar and mediastinal lymph nodes. Couple of calcified granulomas right upper lobe. Bibasilar sub segmental atelectasis. Other cardoza reported no acute process. ABG POC ABG pH 7.331 (7.35-7.45) L 05/19/19 15:28 POC ABG pCO2 64.8 (35-45) H 05/19/19 15:28 POC ABG pO2 74 (80-105) L 05/19/19 15:28 POC ABG HCO3 34.2 (22-26 mml/L) 05/19/19 15:28 POC ABG Total CO2 36 (23-27mmol/L) 05/19/19 15:28 POC ABG O2 Sat 93 05/19/19 15:[address] her on BIPAP 16/6, rate 16, FIO2 30%. Recommend V/Q scan , Venous doppler studies, Echocardiogram and D dimer. Past History Past Medical History: COPD, GERD, hypertension, other (Sleep apnea, Gout,Allergic rhinitis.) Past Surgical History: Other (Gastric Bypass) Social history: . denies: smoking, alcohol abuse, prescription drug abuse Family history: diabetes, hypertension Medications and Allergies Allergies Allergy/AdvReac Type Severity Reaction Status Date / Time No Known Allergies Allergy Unverified 07/29/18 11:34 Home Medications Medication Instructions Recorded Confirmed Last Taken Type Atenolol [Tenormin] 80 mg PO QDAY 05/19/19 05/19/19 Unknown History Gabapentin 300 mg PO BID 05/19/19 05/19/19 Unknown History Lisinopril [Zestril TAB] 40 mg PO QDAY 05/19/19 05/19/19 Unknown History Multivit-Minerals/Folic Acid [One 0.4 mg PO DAILY 05/19/19 05/20/19 Unknown History Daily Womens 50 Plus Tab] Tylenol Pm Ex-Strength Caplet 650 mg PO Q6H PRN 05/19/19 05/20/19 Unknown History Active Meds: Active Medications Acetaminophen (Tylenol) 650 mg PO Q4H PRN PRN Reason: Pain MILD(1-3)/Fever >100.5/CHAVEZ Albuterol (Proventil) 2.5 mg IH Q4HRT PRN PRN Reason: Shortness Of Breath Atenolol (Tenormin) 80 mg PO QDAY [facility] Last Admin: 05/20/19 09:36 Dose: 80 mg Documented by: Gabapentin (Gabapentin) 300 mg PO BID [facility] Last Admin: 05/20/19 09:36 Dose: 300 mg Documented by: Lisinopril (Zestril) 40 mg PO QDAY [facility] Last Admin: 05/20/19 09:35 Dose: 40 mg Documented by: Ondansetron HCl (Zofran) 4 mg IV Q8H PRN PRN Reason: Nausea And Vomiting Sodium Chloride (Sodium Chloride Flush Syringe 10 Ml) 10 ml IV BID [facility] Last Admin: 05/20/19 09:36 Dose: 10 ml Documented by: Sodium Chloride (Sodium Chloride Flush Syringe 10 Ml) 10 ml IV PRN PRN PRN Reason: LINE FLUSH Review of Systems All systems: negative Physical Examination Vital signs: Vital Signs Pulse Resp Pulse Ox 59 L 10 L 98 05/19/19 11:10 05/19/19 11:10 05/19/19 11:10 General appearance: no acute distress, alert, appears uncomfortable Eyes: non-icteric ENT: oropharynx moist Neck: supple, no lymphadenopathy Effort: mildly labored Ascultation: Bilateral: diminished breath sounds, rales (Few rales.) Cardiovascular: regular rate and rhythm Gastrointestinal: normoactive bowel sounds, soft Integumentary: normal Extremities: no cyanosis, other (Trace edema.) Musculoskeletal: no deformities Gait: poor gait normal mental status, non-focal exam, pupils equal and round, CN II-XII normal anxious Results - Laboratory Findings CBC and BMP: 05/20/19 08:15 05/20/19 08:15 ABG POC ABG pH 7.331 (7.35-7.45) L 05/19/19 15:28 POC ABG pCO2 64.8 (35-45) H 05/19/19 15:28 POC ABG pO2 74 (80-105) L 05/19/19 15:28 POC ABG HCO3 34.2 (22-26 mml/L) 05/19/19 15:28 POC ABG Total CO2 36 (23-27mmol/L) 05/19/19 15:28 POC ABG O2 Sat 93 05/19/19 15:28 PT/INR, D-dimer PT 13.9 Sec. (12.2-14.9) 05/19/19 15:02 INR 1.08 (0.87-1.13) 05/19/19 15:02 Abnormal lab findings: Abnormal Labs 05/19/19 05/19/19 05/19/19 15:02 15:02 15:19 MCH 27 L RDW 18.2 H Barnwell % (Auto) Seg Neutrophils % POC ABG pH POC ABG pCO2 POC ABG pO2 Sodium 146 H Carbon Dioxide BUN 18 H Creatinine 1.5 H NT-Pro-B Natriuret Pep 2138 H Total Protein 8.4 H Albumin 3.5 L 05/19/19 05/20/19 05/20/19 15:28 08:15 08:15 MCH 27 L RDW 18.0 H [place] % (Auto) 8.0 H Seg Neutrophils % 71.1 H POC ABG pH 7.331 L POC ABG pCO2 64.8 H POC ABG pO2 74 L Sodium 147 H Carbon Dioxide 32 H BUN 19 H Creatinine 1.7 H NT-Pro-B Natriuret Pep Total Protein 8.4 H Albumin - Diagnostic Findings Chest x-ray: report reviewed (Cardiomegaly with mild congestive heart failure.), image reviewed CT scan - chest: report reviewed, image reviewed Additional studies: CT of the chest with out contrast 05/19/19 FINDINGS: There are multiple calcified right paratracheal and pretracheal lymph nodes. There are a couple of calcified granuloma in the right upper lobe. There is mild bibasilar subsegmental atelectasis. The tracheobronchial tree is normal. No emphysematous changes are seen. There is no evidence of adenopathy, effusion or mass. There are surgical changes involving the stomach characteristic of a vertical gastric sleeve procedure without complication. The visualized upper abdomen is otherwise unremarkable. There is mild spondylosis. IMPRESSION: No acute abnormality. Assessment and Plan 8 YO Female with Super Morbid Obesity, Obesity Hypoventilation Syndrome(Noncompliant with CPAP), HTN, OA, COPD,GE reflux,allergic rhinitis,Gout presents to ED for evaluation. Pt states that she has experienced shortness of breath over the past 1 month with progressively worsening symptoms over the past 1 week. Pt acknowledges dypsnea on exertion, dypsnea at rest, decreased exercise tolerance, leg edema, Orthopnea/PND. Pt seen and evaluated by ME in my office for shortness of breath. Pt was found to have pulse oximetry of 76% on room air. Pt instructed to seek further care at [facility]. PT seen and evaluated in ED and found to have symptoms consistent with CHF Decompensation, Acute Hypoxemic Respiratory Failure, Acute Kidney Injury. Pt denies fever, chills, CP, Palpitations, NVD, Trauma, Productive cough, BRBPR, Syncope, Individual/Family history of DVT/PE/Bleeding/Blood Clotting Disorders, prolonged travel/i mmobility, or recent ill contacts. No prior admission for review. Patient followed by Dr Sarah Henderson in her family medicine clinic in [facility]. Patient has history of smoking 1 to 2 packs a day for 38 years. Stopped smoking 4 years ago. Patient denies alcohol or drug abuse. 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 Patients chest xray reported cardiomegaly with mild CHF. Patient has CT of chest with out contrast, reported calcified hilar and mediastinal lymph nodes. Couple of calcified granulomas right upper lobe. Bibasilar sub segmental atelectasis. Other cardoza reported no acute process. ABG POC ABG pH 7.331 (7.35-7.45) L 05/19/19 15:28 POC ABG pCO2 64.8 (35-45) H 05/19/19 15:28 POC ABG pO2 74 (80-105) L 05/19/19 15:28 POC ABG HCO3 34.2 (22-26 mml/L) 05/19/19 15:28 POC ABG Total CO2 36 (23-27mmol/L) 05/19/19 15:28 POC ABG O2 Sat 93 05/19/19 15:[address] her on BIPAP 16/6, rate 16, FIO2 30%. Recommend V/Q scan , Venous doppler studies, Echocardiogram and D dimer. - Patient Problems (1) CHF (congestive heart failure) Current Visit: Yes Status: Acute Qualifiers: Heart failure type: systolic Heart failure chronicity: acute Qualified Code(s): I50.21 - Acute systolic (congestive) heart failure Plan to address problem: Management as per cardiology. (2) Respiratory failure Current Visit: Yes Status: Acute Qualifiers: Chronicity: acute Respiratory failure complication: hypoxia Qualified Code(s): J96.01 - Acute respiratory failure with hypoxia Plan to address problem: BIPAP 16/6, rate 16, FIO2 30%. Albuterol/atrovent aerosol treatments q 6 hours. Recommend DVT and GI Prophylaxis. (3) Morbid obesity with BMI of 60.0-69.9, adult Current Visit: Yes Status: Acute Plan to address problem: Counselled to loose weight. (4) Sleep apnea in adult Current Visit: Yes Status: Acute Plan to address problem: BIPAP 16.6, rate 16, FIO2 30% (5) Obesity hypoventilation syndrome Current Visit: Yes Status: Acute Plan to address problem: BIPAP 16/6, rate 16, FIO2 30%.
--- NOTE | 2019-05-20 15:20 | Consultation ---
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 denies: smoking, alcohol abuse, prescription drug abuse Family history: diabetes, hypertension Medications and Allergies Allergies Allergy/AdvReac Type Severity Reaction Status Date / Time No Known Allergies Allergy Unverified 07/29/18 11:34 Home Medications Medication Instructions Recorded Confirmed Last Taken Type Atenolol [Tenormin] 80 mg PO QDAY 05/19/19 05/19/19 Unknown History Gabapentin 300 mg PO BID 05/19/19 05/19/19 Unknown History Lisinopril [Zestril TAB] 40 mg PO QDAY 05/19/19 05/19/19 Unknown History Multivit-Minerals/Folic Acid [One 0.4 mg PO DAILY 05/19/19 05/20/19 Unknown History Daily Womens 50 Plus Tab] Tylenol Pm Ex-Strength Caplet 650 mg PO Q6H PRN 05/19/19 05/20/19 Unknown History Active Meds: Active Medications Acetaminophen (Tylenol) 650 mg PO Q4H PRN PRN Reason: Pain MILD(1-3)/Fever >100.5/CHAVEZ Albuterol (Proventil) 2.5 mg IH Q4HRT PRN PRN Reason: Shortness Of Breath Atenolol (Tenormin) 80 mg PO QDAY [facility] Last Admin: 05/20/19 09:36 Dose: 80 mg Documented by: Furosemide (Lasix) 40 mg IV QDAY [facility] Gabapentin (Gabapentin) 300 mg PO BID [facility] Last Admin: 05/20/19 09:36 Dose: 300 mg Documented by: Ondansetron HCl (Zofran) 4 mg IV Q8H PRN PRN Reason: Nausea And Vomiting Sodium Chloride (Sodium Chloride Flush Syringe 10 Ml) 10 ml IV BID [facility] Last Admin: 05/20/19 09:36 Dose: 10 ml Documented by: Sodium Chloride (Sodium Chloride Flush Syringe 10 Ml) 10 ml IV PRN PRN PRN Reason: LINE FLUSH Review of Systems All systems: negative (SOB) Exam - Vital Signs Vital signs: Vital Signs Pulse Resp Pulse Ox 59 L 10 L 98 05/19/19 11:10 05/19/19 11:10 05/19/19 11:10 - General Appearance General appearance: well-developed, well-nourished, obese EENT: ATNC, PERRL, mucous membranes moist Neck: Present: neck supple Respiratory: Decreased Breath Sounds Heart: regular, S1S2 Gastrointestinal: Present: normoactive bowel sounds, obese. Absent: tenderness, distended Integumentary: no rash, warm and dry Neurologic: no focal deficit, no asterixis, alert and oriented x3 Musculoskeletal: Present: other (trace pitting edema in BLE) Psychiatric: mood/affect appropriate, cooperative Results - Lab Results 05/20/19 08:15 05/20/19 08:15 Most recent lab results Calcium 9.5 mg/dL (8.4-10.2) 05/20/19 08:15 Magnesium 2.30 mg/dL (1.7-2.3) 05/19/19 15:21 Assessment and Plan shortness of breath due to CHF kidney failure, acute vs. chronic Mrbid obesity Hypernatremia - will check urine lytes, eos and UA - will hold lisinopril and start Amlidpine 10 mg - will start lasix 40 mg IV qday - renally dose meds - strict I&O - daily weight - avoid nephrotoxins Attila Padilla MD [phone]
--- NOTE | 2019-05-20 15:47 | Progress Note ---
Assessment and Plan Assessment and plan: Patient is a 58 yo woman with a history of obesity, bmi 68.3, Obesity Hypoventilation Syndrome (Noncompliant with CPAP), HTN, OA and COPD who presents with SOB over the past 1 month. Pt was found to have pulse oximetry of 76% on room air. Pt instructed to seek further care at [facility]. PT seen and evaluated in ED and found to have symptoms consistent with CHF Decompensation, Acute Hypoxemic Respiratory Failure, Acute Kidney Injury. (1) CHF (congestive heart failure) Current Visit: Yes Status: Acute Qualifiers: Heart failure type: systolic Heart failure chronicity: acute Qualified Code(s): I50.21 - Acute systolic (congestive) heart failure Plan to address problem: Admit to Telemetry, Echo, Strict I/O, daily weight, BNP, thyroid panel, magnesium level, chest x ray, supplemental oxygen, pulse oximetry, (2) CAROLANN (acute kidney injury) Current Visit: Yes Status: Acute Plan to address problem: Monitor UOP w shift, Nephrology consulted, avoid nephrotoxic agents, BMP, ivf resuscitation therapy as tolerated. (3) Respiratory failure Current Visit: Yes Status: Acute Qualifiers: Chronicity: acute Respiratory failure complication: hypoxia Qualified Code(s): J96.01 - Acute respiratory failure with hypoxia Plan to address problem: Admit to telemetry, supplemental oxygen, pulse oximetry, NIPPV as clinically indicated, CT chest, chest x ray, ABG, pulmonology consulted. (4) Obesity hypoventilation syndrome Current Visit: Yes Status: Acute Plan to address problem: supplemental oxygen, NIPPV as clinically indicated, pulse oximetry, balanced diet, increased physical activity as tolerated. Outpatient bariatric surgery. (5) Hypernatremia Current Visit: Yes Status: Acute Plan to address problem: Nephrology consulted, IVF resuscitation as tolerated. (6) DVT prophylaxis Current Visit: Yes Status: Acute Plan to address problem: SCD to BLE while in bed, History Interval history: Patient was seen and examined. Follow-up on current diagnosis. No overnight events reported to me. Patient denies any chest pain, shortness breath, nausea/vomiting or severe headaches. Imaging, nursing note, chart, labs and old chart reviewed. Discussed with patient. Hospitalist Physical - Physical exam Narrative exam: Gen: WDWN, NAD, Awake, Alert, Orientated HEENT: NCAT, EOMI, PERRL, OP Clear Neck: supple, no adenopathy, no thyromegaly, no JVD CVS/Heart: RRR, normal S1S2, pulses present bilaterally Chest/Lungs: CTA B, Symmetrical chest expansion, good air entry bilaterally GI/Abdomen: soft, NTND, good bowel sounds, no guarding or rebound /Bladder: no suprapubic tenderness, no CVA or paraspinal tenderness Extermity/Skin: no c/c/e, no obvious rash MSK: FROM x 4 Neuro: CN 2-12 grossly intact, no new focal deficits Psych: calm - Constitutional Vitals: Temp Pulse Resp BP Pulse Ox 100.1 F H 91 H 18 172/91 88 05/20/19 11:28 05/20/19 11:28 05/20/19 11:28 05/20/19 06:36 05/20/19 11:28 General appearance: Present: no acute distress, obese Results - Labs CBC & Chem 7: 05/21/19 05:48 05/21/19 05:48 Labs: Laboratory Last Values WBC 8.0 K/mm3 (4.5-11.0) 05/20/19 08:15 RBC 4.61 M/mm3 (3.65-5.03) 05/20/19 08:15 Hgb 12.4 gm/dl (10.1-14.3) 05/20/19 08:15 Hct 41.5 % (30.3-42.9) 05/20/19 08:15 MCV 90 fl (79-97) 05/20/19 08:15 MCH 27 pg (28-32) L 05/20/19 08:15 MCHC 30 % (30-34) 05/20/19 08:15 RDW 18.0 % (13.2-15.2) H 05/20/19 08:15 Plt Count 252 K/mm3 (140-440) 05/20/19 08:15 Lymph % (Auto) 18.5 % (13.4-35.0) 05/20/19 08:15 [place] % (Auto) 8.0 % (0.0-7.3) H 05/20/19 08:15 Eos % (Auto) 0.6 % (0.0-4.3) 05/20/19 08:15 Baso % (Auto) 0.4 % (0.0-1.8) 05/20/19 08:15 Lymph # 1.5 K/mm3 (1.2-5.4) 05/20/19 08:15 [place] # 0.6 K/mm3 (0.0-0.8) 05/20/19 08:15 Eos # 0.0 K/mm3 (0.0-0.4) 05/20/19 08:15 Baso # 0.0 K/mm3 (0.0-0.1) 05/20/19 08:15 Add Manual Diff Complete 05/20/19 08:15 Seg Neutrophils % 71.1 % (40.0-70.0) H 05/20/19 08:15 Seg Neutrophils # 5.6 K/mm3 (1.8-7.7) 05/20/19 08:15 PT 13.9 Sec. (12.2-14.9) 05/19/19 15:02 INR 1.08 (0.87-1.13) 05/19/19 15:02 APTT 31.6 Sec. (24.2-36.6) 05/19/19 15:02 POC ABG pH 7.331 (7.35-7.45) L 05/19/19 15:28 POC ABG pCO2 64.8 (35-45) H 05/19/19 15:28 POC ABG pO2 74 (80-105) L 05/19/19 15:28 POC ABG HCO3 34.2 (22-26 mml/L) 05/19/19 15:28 POC ABG Total CO2 36 (23-27mmol/L) 05/19/19 15:28 POC ABG O2 Sat 93 05/19/19 15:28 POC ABG Base Excess 8 ((-2) - (+3)mmol/L) 05/19/19 15:28 FiO2 36 % 05/19/19 15:28 Sodium 147 mmol/L (137-145) H 05/20/19 08:15 Potassium 4.9 mmol/L (3.6-5.0) 05/20/19 08:15 Chloride 102.5 mmol/L (98-107) 05/20/19 08:15 Carbon Dioxide 32 mmol/L (22-30) H 05/20/19 08:15 Anion Gap 17 mmol/L 05/20/19 08:15 BUN 19 mg/dL (7-17) H 05/20/19 08:15 Creatinine 1.7 mg/dL (0.7-1.2) H 05/20/19 08:15 Estimated GFR 37 ml/min 05/20/19 08:15 BUN/Creatinine Ratio 11 % 05/20/19 08:15 Glucose 97 mg/dL (65-100) 05/20/19 08:15 Calcium 9.5 mg/dL (8.4-10.2) 05/20/19 08:15 Magnesium 2.30 mg/dL (1.7-2.3) 05/19/19 15:21 Total Bilirubin 0.50 mg/dL (0.1-1.2) 05/20/19 08:15 AST 28 units/L (5-40) 05/20/19 08:15 ALT 19 units/L (7-56) 05/20/19 08:15 Alkaline Phosphatase 122 units/L (35-129) 05/20/19 08:15 Total Creatine Kinase 94 units/L (30-135) 05/19/19 15:21 Troponin T < 0.010 ng/mL (0.00-0.029) 05/19/19 15:21 NT-Pro-B Natriuret Pep 2138 pg/mL (0-900) H 05/19/19 15:19 Total Protein 8.4 g/dL (6.3-8.2) H 05/20/19 08:15 Albumin 4.0 g/dL (3.9-5) 05/20/19 08:15 Albumin/Globulin Ratio 0.9 % 05/20/19 08:15 Active Medications - Current Medications Current Medications: Generic Name Dose Route Start Last Admin Trade Name Freq PRN Reason Stop Dose Admin Acetaminophen 650 mg 05/19/19 17:20 Tylenol PO Q4H PRN Pain MILD(1-3)/Fever >100.5/CHAVEZ Albuterol 2.5 mg 05/19/19 17:20 Proventil IH Q4HRT PRN Shortness Of Breath Amlodipine Besylate 10 mg 05/20/19 16:00 Amlodipine PO QDAY MARCELLA Atenolol 80 mg 05/20/19 10:00 05/20/19 09:36 Tenormin PO 80 mg QDAY MARCELLA Administration Furosemide 40 mg 05/21/19 06:00 Lasix IV DAILY@0600 MARCELLA Gabapentin 300 mg 05/19/19 22:00 05/20/19 09:36 Gabapentin PO 300 mg BID MARCELLA Administration Ondansetron HCl 4 mg 05/19/19 17:20 Zofran IV Q8H PRN Nausea And Vomiting Sodium Chloride 10 ml 05/19/19 22:00 05/20/19 09:36 Sodium Chloride Flush Syringe 10 Ml IV 10 ml BID MARCELLA Administration Sodium Chloride 10 ml 05/19/19 17:20 Sodium Chloride Flush Syringe 10 Ml IV PRN PRN LINE FLUSH
[2019-05-20] MEDS: amLODIPine 10 MG TAB PO SCH (17:51)
[2019-05-20 21:00] LABS: Bilirubin,Urine NEG (Negative); Blood,Urine LG (Negative); Color,Urine Yellow (Yellow); Mucus,Urine FEW /HPF; Urobilinogen,Urine < 2.0 mg/dL (<2.0)
[2019-05-20 21:07] LABS: Creatinine,Urine 195.1 mg/dL (0.1-20.0)
[2019-05-21 06:28] LABS: Basophils % (Auto) 0.4 % (0.0-1.8); Eosinophils # (Auto) 0.1 K/mm3 (0.0-0.4); Eosinophils % (Auto) 0.7 % (0.0-4.3); Lymphocytes # (Auto) 2.2 K/mm3 (1.2-5.4); Lymphocytes % (Auto) 25.7 % (13.4-35.0); Mean Corpuscular HGB Conc 30 % (30-34); Mean Corpuscular Volume 90 fl (79-97); Monocytes # (Auto) 0.9 K/mm3 (0.0-0.8); Monocytes % (Auto) 10.8 % (0.0-7.3); Platelet Count 250 K/mm3 (140-440); Red Blood Count 4.32 M/mm3 (3.65-5.03); Red Cell Distribution Width 18.2 % (13.2-15.2)
[2019-05-21] MEDS: FUROSEMIDE 40 MG/4 ML INJ IV SCH (06:30)
[2019-05-21 06:47] LABS: Hemoglobin 11.5 gm/dl (10.1-14.3)
[2019-05-21 07:00] LABS: Calcium 9.1 mg/dL (8.4-10.2)
[2019-05-21] MEDS: GABAPENTIN 300 MG CAP PO SCH ×2 (09:48→21:07)
[2019-05-21] MEDS: amLODIPine 10 MG TAB PO SCH (09:49)
[2019-05-21] MEDS: atenoloL 50 MG TAB PO SCH (09:49)
--- NOTE | 2019-05-21 11:31 | Vascular Lab Report ---
DUPLEX DOPPLER LOWER EXTREMITY VEINS, BILATERAL INDICATION: swelling of legs.. TECHNIQUE: Duplex doppler imaging was performed through the veins of both lower extremities using ve nous compression and other maneuvers. COMPARISON: No relevant prior imaging study available. FINDINGS: Right Common femoral vein: Negative. Right Superficial femoral vein: Negative. Right Popliteal vein: Negative. Right Calf veins: Negative. Left Common femoral vein: Negative. Left Superficial femoral vein: Negative. Left Popliteal vein: Negative. Left Calf veins: Negative. Additional findings: Moderate bilateral pedal edema is suspected. IMPRESSION: No sonographic evidence for DVT in either lower extremity. Signer Name: Donnie Valiente Jr, MD Signed: 05/21/2019 11:27 AM Workstation Name: [id number]
--- NOTE | 2019-05-21 13:30 | Progress Note ---
Assessment and Plan Assessment and plan: Patient is a 58 yo woman with a history of obesity, bmi 68.3, Obesity Hypoventilation Syndrome (Noncompliant with CPAP), HTN, OA and COPD who presents with SOB over the past 1 month. Pt was found to have pulse oximetry of 76% on room air. Pt instructed to seek further care at [facility]. PT seen and evaluated in ED and found to have symptoms consistent with CHF Decompensation, Acute Hypoxemic Respiratory Failure, Acute Kidney Injury. * pCXR Impression: Cardiomegaly with mild congestive heart failure * CT chest without contrast IMPRESSION: No acute abnormality. * U/S venous doppler negative for DVT * 3v Left Knee Impression: OA * 3v Left ankle Impression: Soft tissue swelling, OA, plantar spur * V/Q scan unable to be done due to weight. -Acute CHF exacerbation, suspected Diastolic: treat with diuretics (patient is refusing because it causes leg cramps at home) Admit to Telemetry, Echo, Strict I/O, daily weight, supplemental oxygen, consult Cardiology -CAROLANN (acute kidney injury), vasomotor nephropathy: Monitor UOP w shift, Nephrology consulted, avoid nephrotoxic agents, BMP, ivf resuscitation therapy as tolerated. -Acute hypoxic Respiratory failure: supplemental oxygen, pulse oximetry, NIPPV as clinically indicated, CT chest, chest x ray, ABG, pulmonology consulted. -Obesity hypoventilation syndrome: supplemental oxygen, NIPPV as clinically indicated, pulse oximetry, balanced diet, increased physical activity as tolerated. Outpatient bariatric surgery. Pulmonology is following -Hypernatremia: Nephrology consulted, IVF resuscitation as tolerated, monitor bmp closely -Hyperkalemia, mild: give kayexalate, repeat level in AM -LUZ MARINA, noncompliant with CPAP: counseling done -Noncompliance with diuretics: counseling done, it she refuses, will discharge home -Extreme obesity, bmi 68: recreation counselor on weight reduction -Fevers, suspect UTI, urine ctx contaminated: get blood culture, treat with IV rocephin DVT prophylaxis: add sq heparin full code Disposition; continue inpatient care, why ECHO cancelled, reason unknown, so I called ECHO lab, spoke to Asha, who said RJ Galindo for [facility] cancelled because patient had one within 6 months in their office. Hence, no one informed me or received my permission to cancel this order. Most prudent thing to do is officiall consult [facility] to manage this CHF History Interval history: Patient was seen and examined. Follow-up on current diagnosis of CHF. No overnight events reported to me. Patient denies any chest pain, shortness breath, nausea/vomiting or severe headaches. Imaging, nursing note, chart, labs and old chart reviewed. Discussed with patient. Patient refusing lasix, counseling done. Hospitalist Physical - Physical exam Narrative exam: Gen: obese bmi 68, WDWN, NAD, Awake, Alert, Orientated HEENT: NCAT, EOMI, PERRL, OP Clear Neck: supple, no adenopathy, no thyromegaly, no JVD CVS/Heart: RRR, normal S1S2, pulses present bilaterally Chest/Lungs: diminished bs bilateral, Symmetrical chest expansion, good air e ntry bilaterally GI/Abdomen: soft, NT, large pannus good bowel sounds, no guarding or rebound /Bladder: no suprapubic tenderness, no CVA or paraspinal tenderness Extermity/Skin: bilateral BLE edema, no obvious rash MSK: FROM x 4 Neuro: CN 2-12 grossly intact, no new focal deficits Psych: calm - Constitutional Vitals: Temp Pulse Resp BP Pulse Ox 100.8 F H 91 H 20 158/88 90 05/21/19 12:25 05/21/19 12:25 05/21/19 12:25 05/21/19 12:25 05/21/19 12:25 General appearance: Present: no acute distress, obese Results - Labs CBC & Chem 7: 05/21/19 05:48 05/21/19 05:48 Labs: Laboratory Last Values WBC 8.6 K/mm3 (4.5-11.0) 05/21/19 05:48 RBC 4.32 M/mm3 (3.65-5.03) 05/21/19 05:48 Hgb 11.5 gm/dl (10.1-14.3) 05/21/19 05:48 Hct 39.0 % (30.3-42.9) 05/21/19 05:48 MCV 90 fl (79-97) 05/21/19 05:48 MCH 27 pg (28-32) L 05/21/19 05:48 MCHC 30 % (30-34) 05/21/19 05:48 RDW 18.2 % (13.2-15.2) H 05/21/19 05:48 Plt Count 250 K/mm3 (140-440) 05/21/19 05:48 Lymph % (Auto) 25.7 % (13.4-35.0) 05/21/19 05:48 [place] % (Auto) 10.8 % (0.0-7.3) H 05/21/19 05:48 Eos % (Auto) 0.7 % (0.0-4.3) 05/21/19 05:48 Baso % (Auto) 0.4 % (0.0-1.8) 05/21/19 05:48 Lymph # 2.2 K/mm3 (1.2-5.4) 05/21/19 05:48 [place] # 0.9 K/mm3 (0.0-0.8) H 05/21/19 05:48 Eos # 0.1 K/mm3 (0.0-0.4) 05/21/19 05:48 Baso # 0.0 K/mm3 (0.0-0.1) 05/21/19 05:48 Add Manual Diff Complete 05/20/19 08:15 Seg Neutrophils % 62.4 % (40.0-70.0) 05/21/19 05:48 Seg Neutrophils # 5.4 K/mm3 (1.8-7.7) 05/21/19 05:48 PT 13.9 Sec. (12.2-14.9) 05/19/19 15:02 INR 1.08 (0.87-1.13) 05/19/19 15:02 APTT 31.6 Sec. (24.2-36.6) 05/19/19 15:02 POC ABG pH 7.331 (7.35-7.45) L 05/19/19 15:28 POC ABG pCO2 64.8 (35-45) H 05/19/19 15:28 POC ABG pO2 74 (80-105) L 05/19/19 15:28 POC ABG HCO3 34.2 (22-26 mml/L) 05/19/19 15:28 POC ABG Total CO2 36 (23-27mmol/L) 05/19/19 15:28 POC ABG O2 Sat 93 05/19/19 15:28 POC ABG Base Excess 8 ((-2) - (+3)mmol/L) 05/19/19 15:28 FiO2 36 % 05/19/19 15:28 Sodium 145 mmol/L (137-145) 05/21/19 05:48 Potassium 5.2 mmol/L (3.6-5.0) H 05/21/19 05:48 Chloride 101.2 mmol/L (98-107) 05/21/19 05:48 Carbon Dioxide 30 mmol/L (22-30) 05/21/19 05:48 Anion Gap 19 mmol/L 05/21/19 05:48 BUN 16 mg/dL (7-17) 05/21/19 05:48 Creatinine 1.6 mg/dL (0.7-1.2) H 05/21/19 05:48 Estimated GFR 40 ml/min 05/21/19 05:48 BUN/Creatinine Ratio 10 % 05/21/19 05:48 Glucose 83 mg/dL (65-100) 05/21/19 05:48 Calcium 9.1 mg/dL (8.4-10.2) 05/21/19 05:48 Phosphorus 3.90 mg/dL (2.5-4.5) 05/21/19 05:48 Magnesium 2.30 mg/dL (1.7-2.3) 05/19/19 15:21 Total Bilirubin 0.50 mg/dL (0.1-1.2) 05/20/19 08:15 AST 28 units/L (5-40) 05/20/19 08:15 ALT 19 units/L (7-56) 05/20/19 08:15 Alkaline Phosphatase 122 units/L (35-129) 05/20/19 08:15 Total Creatine Kinase 94 units/L (30-135) 05/19/19 15:21 Troponin T < 0.010 ng/mL (0.00-0.029) 05/19/19 15:21 NT-Pro-B Natriuret Pep 2138 pg/mL (0-900) H 05/19/19 15:19 Total Protein 8.4 g/dL (6.3-8.2) H 05/20/19 08:15 Albumin 4.0 g/dL (3.9-5) 05/20/19 08:15 Albumin/Globulin Ratio 0.9 % 05/20/19 08:15 Urine Color Yellow (Yellow) 05/20/19 Unknown Urine Turbidity Slightly-cloudy (Clear) 05/20/19 Unknown Urine pH 5.0 (5.0-7.0) 05/20/19 Unknown Ur Specific [place] 1.017 (1.003-1.030) 05/20/19 Unknown Urine Protein 30 mg/dl mg/dL (Negative) 05/20/19 Unknown Urine Glucose (UA) Neg mg/dL (Negative) 05/20/19 Unknown Urine Ketones Neg mg/dL (Negative) 05/20/19 Unknown Urine Blood Lg (Negative) 05/20/19 Unknown Urine Nitrite Neg (Negative) 05/20/19 Unknown Urine Bilirubin Neg (Negative) 05/20/19 Unknown Urine Urobilinogen < 2.0 mg/dL (<2.0) 05/20/19 Unknown Ur Leukocyte Esterase Neg (Negative) 05/20/19 Unknown Urine WBC (Auto) 16.0 /HPF (0.0-6.0) H 05/20/19 Unknown Urine RBC (Auto) 97.0 /HPF (0.0-6.0) 05/20/19 Unknown U Epithel Cells (Auto) 2.0 /HPF (0-13.0) 05/20/19 Unknown Urine Mucus Few /HPF 05/20/19 Unknown Urine Eosinophils None seen (None Seen) 05/20/19 Unknown Urine Creatinine 195.1 mg/dL (0.1-20.0) H 05/20/19 Unknown Urine Sodium 95 mmol/L 05/20/19 Unknown Active Medications - Current Medications Current Medications: Generic Name Dose Route Start Last Admin Trade Name Freq PRN Reason Stop Dose Admin Acetaminophen 650 mg 05/19/19 17:20 Tylenol PO Q4H PRN Pain MILD(1-3)/Fever >100.5/CHAVEZ Albuterol 2.5 mg 05/19/19 17:20 Proventil IH Q4HRT PRN Shortness Of Breath Amlodipine Besylate 10 mg 05/20/19 16:00 05/21/19 09:49 Amlodipine PO 10 mg QDAY MARCELLA Administration Atenolol 80 mg 05/20/19 10:00 05/21/19 09:49 Tenormin PO 80 mg QDAY MARCELLA Administration Furosemide 40 mg 05/21/19 06:00 05/21/19 06:30 Lasix IV Not Given DAILY@0600 MARCELLA Gabapentin 300 mg 05/19/19 22:00 05/21/19 09:48 Gabapentin PO 300 mg BID MARCELLA Administration Ondansetron HCl 4 mg 05/19/19 17:20 Zofran IV Q8H PRN Nausea And Vomiting Sodium Chloride 10 ml 05/19/19 22:00 05/21/19 09:50 Sodium Chloride Flush Syringe 10 Ml IV 10 ml BID MARCELLA Administration Sodium Chloride 10 ml 05/19/19 17:20 Sodium Chloride Flush Syringe 10 Ml IV PRN PRN LINE FLUSH
--- NOTE | 2019-05-21 13:35 | Progress Note ---
Assessment and Plan Patient is awake and alert. Sitting on the side of the bed. Pt is on 3 liters of O2. Saturation is 90%. Patient had venous doppler study of the legs and reported no DVT. Patient is unable to get V/Q scan. D-Dimer is still pending. I also r ecommend Cardiac evaluation. - Patient Problems (1) CHF (congestive heart failure) Current Visit: Yes Status: Acute Qualifiers: Heart failure type: systolic Heart failure chronicity: acute Qualified Code(s): I50.21 - Acute systolic (congestive) heart failure Plan to address problem: Management as per cardiology. (2) Respiratory failure Current Visit: Yes Status: Acute Qualifiers: Chronicity: acute Respiratory failure complication: hypoxia Qualified Code(s): J96.01 - Acute respiratory failure with hypoxia Plan to address problem: BIPAP 16/6, rate 16, FIO2 30%. Albuterol/atrovent aerosol treatments q 6 hours. Recommend DVT and GI Prophylaxis. (3) Morbid obesity with BMI of 60.0-69.9, adult Current Visit: Yes Status: Acute Plan to address problem: Counselled to loose weight. (4) Sleep apnea in adult Current Visit: Yes Status: Acute Plan to address problem: BIPAP 16.6, rate 16, FIO2 30% (5) Obesity hypoventilation syndrome Current Visit: Yes Status: Acute Plan to address problem: BIPAP 16/6, rate 16, FIO2 30%. Subjective Date of service: 05/21/19 Interval history: Patient is awake and alert. Sitting on the side of the bed. Pt is on 3 liters of O2. Saturation is 90%. Patient had venous doppler study of the legs and reported no DVT. Patient is unable to get V/Q scan. D-Dimer is still pending. I also recommend Cardiac evaluation. Objective Vital Signs - 12hr 05/21/19 05/21/19 05/21/19 04:46 09:49 10:00 Temperature 98.9 F Pulse Rate 98 H 96 H Respiratory 16 Rate Blood Pressure 135/76 135/76 O2 Sat by Pulse 89 94 Oximetry 05/21/19 12:25 Temperature 100.8 F H Pulse Rate 91 H Respiratory 20 Rate Blood Pressure 158/88 O2 Sat by Pulse 90 Oximetry Constitutional: no acute distress, alert, appears uncomfortable Eyes: non-icteric ENT: oropharynx moist Neck: supple, no lymphadenopathy Effort: mildly labored Ascultation: Bilateral: diminished breath sounds, rales (Few rales.) Cardiovascular: regular rate and rhythm Gastrointestinal: normoactive bowel sounds, soft Integumentary: normal Extremities: no cyanosis, other (Trace edema.) Neurologic: normal mental status, non-focal exam, pupils equal and round, CN II- XII normal Psychiatric: anxious CBC and BMP: 05/21/19 05:48 05/21/19 05:48 ABG, PT/INR, D-dimer: ABG POC ABG pH 7.331 (7.35-7.45) L 05/19/19 15:28 POC ABG pCO2 64.8 (35-45) H 05/19/19 15:28 POC ABG pO2 74 (80-105) L 05/19/19 15:28 POC ABG HCO3 34.2 (22-26 mml/L) 05/19/19 15:28 POC ABG Total CO2 36 (23-27mmol/L) 05/19/19 15:28 POC ABG O2 Sat 93 05/19/19 15:28 PT/INR, D-dimer PT 13.9 Sec. (12.2-14.9) 05/19/19 15:02 INR 1.08 (0.87-1.13) 05/19/19 15:02 Abnormal lab findings: Abnormal Labs 05/19/19 05/19/19 05/19/19 15:02 15:02 15:19 MCH 27 L RDW 18.2 H [place] % (Auto) [place] # Seg Neutrophils % POC ABG pH POC ABG pCO2 POC ABG pO2 Sodium 146 H Potassium Carbon Dioxide BUN 18 H Creatinine 1.5 H NT-Pro-B Natriuret Pep 2138 H Total Protein 8.4 H Albumin 3.5 L Urine WBC (Auto) Urine Creatinine 05/19/19 05/20/19 05/20/19 15:28 08:15 08:15 MCH 27 L RDW 18.0 H [place] % (Auto) 8.0 H [place] # Seg Neutrophils % 71.1 H POC ABG pH 7.331 L POC ABG pCO2 64.8 H POC ABG pO2 74 L Sodium 147 H Potassium Carbon Dioxide 32 H BUN 19 H Creatinine 1.7 H NT-Pro-B Natriuret Pep Total Protein 8.4 H Albumin Urine WBC (Auto) Urine Creatinine 05/20/19 05/20/19 05/21/19 Unknown Unknown 05:48 MCH 27 L RDW 18.2 H [place] % (Auto) 10.8 H [place] # 0.9 H Seg Neutrophils % POC ABG pH POC ABG pCO2 POC ABG pO2 Sodium Potassium Carbon Dioxide BUN Creatinine NT-Pro-B Natriuret Pep Total Protein Albumin Urine WBC (Auto) 16.0 H Urine Creatinine 195.1 H 05/21/19 05:48 MCH RDW [place] % (Auto) [place] # Seg Neutrophils % POC ABG pH POC ABG pCO2 POC ABG pO2 Sodium Potassium 5.2 H Carbon Dioxide BUN Creatinine 1.6 H NT-Pro-B Natriuret Pep Total Protein Albumin Urine WBC (Auto) Urine Creatinine Additional Studies: No evidence of DVT in both legs.
--- NOTE | 2019-05-21 13:46 | Progress Note ---
Assessment and Plan Assessment: Shortness of breath due to CHF Kidney failure, acute vs. chronic Morbid obesity Mild Hyperkalemia Hypernatremia, Resolved Plan: - Renal labs reviewed. Serum creatinine 1.6 today, prior was 1.7, could be in baseline range given history of CKD - Urine lytes reviewed. Urine eosinophils- none seen - Lasix 40 mg IV daily ordered yesterday-patient refused Lasix yesterday due to fear of cramping, she is willing to try it today - Lisinopril on hold - On Amlodipine 10 mg QD - Low K diet - Renally dose meds - Strict I&O monitoring - Obtain daily weights - Avoid nephrotoxic agents - Continue to monitor Subjective Date of service: 05/21/19 Principal diagnosis: Acute on Chronic Kidney Disease Interval history: Patient was refusing to take lasix stating that it made her cramp and states she was not taking it at home either. Spoke with patient and she is now agreeable to taking Lasix. Objective - Vital Signs Vital signs: Vital Signs - 12hr 05/21/19 05/21/19 05/21/19 04:46 09:49 10:00 Temperature 98.9 F Pulse Rate 98 H 96 H Respiratory 16 Rate Blood Pressure 135/76 135/76 O2 Sat by Pulse 89 94 Oximetry 05/21/19 12:25 Temperature 100.8 F H Pulse Rate 91 H Respiratory 20 Rate Blood Pressure 158/88 O2 Sat by Pulse 90 Oximetry - General Appearance General appearance: well-developed, appears stated age, obese, fatigue, other EENT: ATNC, PERRL, hearing intact, vision intact Neck: no JVD, supple Respiratory: Present: Decreased Breath Sounds Cardiology: S1S2 Gastrointestinal: normoactive bowel sounds Integumentary: chronic venous stasis Neurologic: alert and oriented x3 Musculoskeletal: joint swelling - Lab 05/21/19 05:48 05/21/19 05:48 Most recent lab results Calcium 9.1 mg/dL (8.4-10.2) 05/21/19 05:48 Phosphorus 3.90 mg/dL (2.5-4.5) 05/21/19 05:48 Magnesium 2.30 mg/dL (1.7-2.3) 05/19/19 15:21 Urine Creatinine 195.1 mg/dL (0.1-20.0) H 05/20/19 Unknown Urine Sodium 95 mmol/L 05/20/19 Unknown Medications & Allergies - Medications Allergies/Adverse Reactions: Allergies No Known Allergies Allergy (Unverified 07/29/18 11:34) Home Medications: Home Medications Medication Instructions Recorded Confirmed Last Taken Type Atenolol [Tenormin] 80 mg PO QDAY 05/19/19 05/19/19 Unknown History Gabapentin 300 mg PO BID 05/19/19 05/19/19 Unknown History Lisinopril [Zestril TAB] 40 mg PO QDAY 05/19/19 05/19/19 Unknown History Multivit-Minerals/Folic Acid [One 0.4 mg PO DAILY 05/19/19 05/20/19 Unknown Hist ory Daily Womens 50 Plus Tab] Tylenol Pm Ex-Strength Caplet 650 mg PO Q6H PRN 05/19/19 05/20/19 Unknown History Active Medications: Generic Name Dose Route Start Last Admin Trade Name Freq PRN Reason Stop Dose Admin Acetaminophen 650 mg 05/19/19 17:20 Tylenol PO Q4H PRN Pain MILD(1-3)/Fever >100.5/CHAVEZ Albuterol 2.5 mg 05/19/19 17:20 Proventil IH Q4HRT PRN Shortness Of Breath Amlodipine Besylate 10 mg 05/20/19 16:00 05/21/19 09:49 Amlodipine PO 10 mg QDAY MARCELLA Administration Atenolol 80 mg 05/20/19 10:00 05/21/19 09:49 Tenormin PO 80 mg QDAY MARCELLA Administration Furosemide 40 mg 05/21/19 06:00 05/21/19 06:30 Lasix IV Not Given DAILY@0600 MARCELLA Gabapentin 300 mg 05/19/19 22:00 05/21/19 09:48 Gabapentin PO 300 mg BID MARCELLA Administration Ondansetron HCl 4 mg 05/19/19 17:20 Zofran IV Q8H PRN Nausea And Vomiting Sodium Chloride 10 ml 05/19/19 22:00 05/21/19 09:50 Sodium Chloride Flush Syringe 10 Ml IV 10 ml BID MARCELLA Administration Sodium Chloride 10 ml 05/19/19 17:20 Sodium Chloride Flush Syringe 10 Ml IV PRN PRN LINE FLUSH
[2019-05-21] MEDS ORDERED: SODIUM POLYSTYRENE 15 GM/60 ML ORAL LIQD PO ONE (14:47)
[2019-05-21] MEDS: cefTRIAXone/NS 2 GM/100 ML 2 GM/100 ML BAG IV SCH (16:28)
[2019-05-21] MEDS: HEPARIN 5,000 UNIT/1 ML VIAL SUB-Q SCH ×2 (16:29→21:08)
[2019-05-21] MEDS ORDERED: FUROSEMIDE 40 MG/4 ML INJ IV ONE (20:26)
[2019-05-21] MEDS: ACETAMINOPHEN 325 MG TAB PO PRN (21:07)
[2019-05-22] MEDS: HEPARIN 5,000 UNIT/1 ML VIAL SUB-Q SCH ×3 (05:36→23:22)
[2019-05-22] MEDS: FUROSEMIDE 40 MG/4 ML INJ IV SCH (05:36)
[2019-05-22 07:39] LABS: Hematocrit TNR % (30.3-42.9); Hemoglobin TNR gm/dl (10.1-14.3); Lymphocytes % (Auto) TNR % (13.4-35.0); Mean Corpuscular HGB Conc TNR % (30-34); Mean Corpuscular Volume TNR fl (79-97); Mean Platelet Volume TNR fl (6-12); Monocytes % (Auto) TNR % (0.0-7.3); Platelet Count TNR K/mm3 (140-440); Red Blood Count TNR M/mm3 (3.65-5.03); Red Cell Distribution Width TNR % (13.2-15.2)
[2019-05-22 07:40] LABS: Basophils # (Auto) TNR K/mm3 (0.0-0.1); Basophils % (Auto) TNR % (0.0-1.8); Calcium 9.3 mg/dL (8.4-10.2); Eosinophils # (Auto) TNR K/mm3 (0.0-0.4); Eosinophils % (Auto) TNR % (0.0-4.3); Lymphocytes # (Auto) TNR K/mm3 (1.2-5.4); Monocytes # (Auto) TNR K/mm3 (0.0-0.8)
[2019-05-22 09:21] LABS: Basophils # (Auto) 0.1 K/mm3 (0.0-0.1); Basophils % (Auto) 0.8 % (0.0-1.8); Eosinophils # (Auto) 0.1 K/mm3 (0.0-0.4); Eosinophils % (Auto) 0.8 % (0.0-4.3); Lymphocytes # (Auto) 2.1 K/mm3 (1.2-5.4); Lymphocytes % (Auto) 23.7 % (13.4-35.0); Mean Corpuscular HGB Conc 30 % (30-34); Mean Corpuscular Volume 90 fl (79-97); Monocytes # (Auto) 1.2 K/mm3 (0.0-0.8); Monocytes % (Auto) 13.8 % (0.0-7.3); Platelet Count 220 K/mm3 (140-440); Red Blood Count 4.09 M/mm3 (3.65-5.03); Red Cell Distribution Width 18.1 % (13.2-15.2)
[2019-05-22 09:22] LABS: Hematocrit 36.9 % (30.3-42.9); Hemoglobin 11.1 gm/dl (10.1-14.3)
[2019-05-22] MEDS: cefTRIAXone/NS 2 GM/100 ML 2 GM/100 ML BAG IV SCH (09:54)
[2019-05-22] MEDS: GABAPENTIN 300 MG CAP PO SCH ×2 (09:55→23:21)
[2019-05-22] MEDS: amLODIPine 10 MG TAB PO SCH (10:03)
[2019-05-22] MEDS: atenoloL 50 MG TAB PO SCH (10:04)
--- NOTE | 2019-05-22 11:02 | Consultation ---
History of Present Illness Consult date: 05/22/19 Consult reason: congestive heart failure, known to you History of present illness: This is a 58-year old woman with morbid obesity, COPD, sleep apnea, noncompliant with CPAP. 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 It's reported she had a oxygen saturation at 74%. A chest x-ray done in the emergency department reports cardiomegaly with mild interstitial edema. An echocardiogram done as an outpatient within the last 6 months, reports a normal left ventricular systolic function, ejection fraction 50%. A cardiac consultation has been requested for CHF evaluation. Past History Past Medical History: COPD, GERD, hypertension, other (Sleep apnea, Gout,Allergic rhinitis.) Past Surgical History: Other (Gastric Bypass) Social history: . denies: smoking, alcohol abuse, prescription drug abuse Family history: diabetes, hypertension Medications and Allergies Allergies Allergy/AdvReac Type Severity Reaction Status Date / Time No Known Allergies Allergy Unverified 07/29/18 11:34 Home Medications Medication Instructions Recorded Confirmed Last Taken Type Atenolol [Tenormin] 80 mg PO QDAY 05/19/19 05/19/19 Unknown History Gabapentin 300 mg PO BID 05/19/19 05/19/19 Unknown History Lisinopril [Zestril TAB] 40 mg PO QDAY 05/19/19 05/19/19 Unknown History Multivit-Minerals/Folic Acid [One 0.4 mg PO DAILY 05/19/19 05/20/19 Unknown History Daily Womens 50 Plus Tab] Tylenol Pm Ex-Strength Caplet 650 mg PO Q6H PRN 05/19/19 05/20/19 Unknown History Active Meds: Active Medications Acetaminophen (Tylenol) 650 mg PO Q4H PRN PRN Reason: Pain MILD(1-3)/Fever >100.5/CHAVEZ Last Admin: 05/21/19 21:07 Dose: 650 mg Documented by: Albuterol (Proventil) 2.5 mg IH Q4HRT PRN PRN Reason: Shortness Of Breath Amlodipine Besylate (Amlodipine) 10 mg PO QDAY [facility] Last Admin: 05/22/19 10:03 Dose: 10 mg Documented by: Atenolol (Tenormin) 80 mg PO QDAY [facility] Last Admin: 05/22/19 10:04 Dose: 80 mg Documented by: Furosemide (Lasix) 40 mg IV DAILY@0600 [facility] Last Admin: 05/22/19 05:36 Dose: 40 mg Documented by: Gabapentin (Gabapentin) 300 mg PO BID [facility] Last Admin: 05/22/19 09:55 Dose: 300 mg Documented by: Heparin Sodium (Porcine) (Heparin) 5,000 unit SUB-Q Q8HR [facility] Last Admin: 05/22/19 05:36 Dose: 5,000 unit Documented by: Ceftriaxone Sodium (Rocephin/Ns 2 Gm/100 Ml) 2 gm in 100 mls @ 200 mls/hr IV Q24HR [facility]; Protocol Last Admin: 05/22/19 09:54 Dose: 200 mls/hr Documented by: Ondansetron HCl (Zofran) 4 mg IV Q8H PRN PRN Reason: Nausea And Vomiting Sodium Chloride (Sodium Chloride Flush Syringe 10 Ml) 10 ml IV BID [facility] Last Admin: 05/22/19 09:55 Dose: 10 ml Documented by: Sodium Chloride (Sodium Chloride Flush Syringe 10 Ml) 10 ml IV PRN PRN PRN Reason: LINE FLUSH Physical Examination Vital Signs Pulse Resp Pulse Ox 59 L 10 L 98 05/19/19 11:10 05/19/19 11:10 05/19/19 11:10 General appearance: no acute distress, obese HEENT: Positive: PERRL Cardiac: Positive: Reg Rate and Rhythm Lungs: Positive: Decreased Breath Sounds Neuro: Positive: Grossly Intact Results 05/22/19 08:39 05/22/19 06:39 CBC 05/22/19 05/22/19 Range/Units 06:39 08:39 WBC TNR 8.9 RBC TNR 4.09 Hgb TNR 11.1 Hct TNR 36.9 Plt Count TNR 220 Lymph # TNR 2.1 [place] # TNR 1.2 H Eos # TNR 0.1 Baso # TNR 0.1 Comprehensive Metabolic Panel 05/22/19 Range/Units 06:39 Sodium 145 (137-145) mmol/L Potassium 5.0 (3.6-5.0) mmol/L Chloride 99.2 (98-107) mmol/L Carbon Dioxide 35 H (22-30) mmol/L BUN 16 (7-17) mg/dL Creatinine 1.6 H (0.7-1.2) mg/dL Glucose 89 (65-100) mg/dL Calcium 9.3 (8.4-10.2) mg/dL
--- NOTE | 2019-05-22 12:15 | Progress Note ---
Assessment and Plan Shortness of breath due to CHF Kidney failure, acute vs. chronic Morbid obesity Mild Hyperkalemia Hypernatremia, Resolved Plan: - Renal labs reviewed. Serum creatinine 1.6 which is likely her baseline - Urine lytes reviewed. Urine eosinophils- none seen - Lisinopril on hold - On Amlodipine 10 mg QD - Low K diet - Renally dose meds - Strict I&O monitoring - Obtain daily weights - Avoid nephrotoxic agents - Continue to monitor Attila marie MD [phone] Subjective Date of service: 05/22/19 Principal diagnosis: Acute on Chronic Kidney Disease Interval history: remains to feel tried, denies acute issues Objective - Vital Signs Vital signs: Vital Signs - 12hr 05/22/19 05/22/19 05/22/19 05:16 07:05 09:00 Temperature 100.5 F H Pulse Rate 94 H Respiratory 24 Rate Blood Pressure 181/99 Blood Pressure 162/84 [Left] O2 Sat by Pulse 96 94 Oximetry 05/22/19 05/22/19 10:03 10:04 Temperature Pulse Rate 102 H 102 H Respiratory Rate Blood Pressure 142/83 142/83 Blood Pressure [Left] O2 Sat by Pulse Oximetry - General Appearance General appearance: well-developed, well-nourished, obese EENT: ATNC, PERRL, mucous membranes moist Neck: no JVD, no carotid bruit Respiratory: Present: Clear to Ascultation Cardiology: regular, S1S2 Gastrointestinal: normoactive bowel sounds Integumentary: no rash, warm and dry Neurologic: no focal deficit, no asterixis, alert and oriented x3 Musculoskeletal: other Psychiatric: mood/affect appropriate, cooperative - Lab 05/22/19 08:39 05/22/19 06:39 Most recent lab results Calcium 9.3 mg/dL (8.4-10.2) 05/22/19 06:39 Phosphorus 3.90 mg/dL (2.5-4.5) 05/21/19 05:48 Magnesium 2.30 mg/dL (1.7-2.3) 05/22/19 06:39 Urine Creatinine 195.1 mg/dL (0.1-20.0) H 05/20/19 Unknown Urine Sodium 95 mmol/L 05/20/19 Unknown Medications & Allergies - Medications Allergies/Adverse Reactions: Allergies No Known Allergies Allergy (Unverified 07/29/18 11:34) Home Medications: Home Medications Medication Instructions Recorded Confirmed Last Taken Type Atenolol [Tenormin] 80 mg PO QDAY 05/19/19 05/19/19 Unknown History Gabapentin 300 mg PO BID 05/19/19 05/19/19 Unknown History Lisinopril [Zestril TAB] 40 mg PO QDAY 05/19/19 05/19/19 Unknown History Multivit-Minerals/Folic Acid [One 0.4 mg PO DAILY 05/19/19 05/20/19 Unknown History Daily Womens 50 Plus Tab] Tylenol Pm Ex-Strength Caplet 650 mg PO Q6H PRN 05/19/19 05/20/19 Unknown History Active Medications: Generic Name Dose Route Start Last Admin Trade Name Freq PRN Reason Stop Dose Admin Acetaminophen 650 mg 05/19/19 17:20 05/21/19 21:07 Tylenol PO 650 mg Q4H PRN Administration Pain MILD(1-3)/Fever >100.5/CHAVEZ Albuterol 2.5 mg 05/19/19 17:20 Proventil IH Q4HRT PRN Shortness Of Breath Amlodipine Besylate 10 mg 05/20/19 16:00 05/22/19 10:03 Amlodipine PO 10 mg QDAY MARCELLA Administration Atenolol 80 mg 05/20/19 10:00 05/22/19 10:04 Tenormin PO 80 mg QDAY MARCELLA Administration Furosemide 40 mg 05/21/19 06:00 05/22/19 05:36 Lasix IV 40 mg DAILY@0600 MARCELLA Administration Gabapentin 300 mg 05/19/19 22:00 05/22/19 09:55 Gabapentin PO 300 mg BID MARCELLA Administration Heparin Sodium (Porcine) 5,000 unit 05/21/19 14:45 05/22/19 05:36 Heparin SUB-Q 5,000 unit Q8HR MARCELLA Administration Ceftriaxone Sodium 2 gm in 100 mls @ 200 mls/hr 05/21/19 15:00 05/22/19 09:54 Rocephin/Ns 2 Gm/100 Ml IV 200 mls/hr Q24HR MARCELLA Administration Protocol Ondansetron HCl 4 mg 05/19/19 17:20 Zofran IV Q8H PRN Nausea And Vomiting Sodium Chloride 10 ml 05/19/19 22:00 05/22/19 09:55 Sodium Chloride Flush Syringe 10 Ml IV 10 ml BID MARCELLA Administration Sodium Chloride 10 ml 05/19/19 17:20 Sodium Chloride Flush Syringe 10 Ml IV PRN PRN LINE FLUSH
[2019-05-22] MEDS ORDERED: levoFLOXacin 750 MG TAB PO ONE (14:16)
--- NOTE | 2019-05-22 14:34 | Progress Note ---
Assessment and Plan Assessment and plan: Patient is a 58 yo woman with a history of obesity, bmi 68.3, Obesity Hypoventilation Syndrome (Noncompliant with CPAP), HTN, OA and COPD who presents with SOB over the past 1 month. Pt was found to have pulse oximetry of 76% on room air. Pt instructed to seek further care at [facility]. PT seen and evaluated in ED and found to have symptoms consistent with CHF Decompensation, Acute Hypoxemic Respiratory Failure, Acute Kidney Injury. * pCXR Impression: Cardiomegaly with mild congestive heart failure * CT chest without contrast IMPRESSION: No acute abnormality. * U/S venous doppler negative for DVT * 3v Left Knee Impression: OA * 3v Left ankle Impression: Soft tissue swelling, OA, plantar spur * V/Q scan unable to be done due to weight. -Acute hypoxic Respiratory failure: supplemental oxygen, pulse oximetry, NIPPV as clinically indicated, CT chest, chest x ray, reviewed, pulmonology consulted, input noted -Acute CHF exacerbation, suspected Diastolic: treat with diuretics, Echo done at Cardiology office, Strict I/O, daily weight, supplemental oxygen, consulted Cardiology, input noted -CAROLANN (acute kidney injury), vasomotor nephropathy: Monitor UOP w shift, Nephrology consulted, avoid nephrotoxic agents, BMP, ivf resuscitation therapy as tolerated. -Obesity hypoventilation syndrome: supplemental oxygen, NIPPV as clinically indicated, pulse oximetry, balanced diet, increased physical activity as tolerated. Outpatient bariatric surgery. 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 Follow-up on current diagnosis of CHF. No overnight events reported to me. Patient denies any chest pain, shortness breath, nausea/vomiting or severe headaches. Imaging, nursing note, chart, labs and old chart reviewed. Discussed with patient. Patient taking lasix now, Son Joey at bedside. Hospitalist Physical - Physical exam Narrative exam: Gen: obese bmi 68, WDWN, NAD, Awake, Alert, Orientated HEENT: NCAT, EOMI, PERRL, OP Clear Neck: supple, no adenopathy, no thyromegaly, no JVD CVS/Heart: RRR, normal S1S2, pulses present bilaterally Chest/Lungs: diminished bs bilateral, Symmetrical chest expansion, good air entry bilaterally GI/Abdomen: soft, NT, large pannus good bowel sounds, no guarding or rebound /Bladder: no suprapubic tenderness, no CVA or paraspinal tenderness Extermity/Skin: bilateral BLE edema, no obvious rash MSK: FROM x 4 Neuro: CN 2-12 grossly intact, no new focal deficits Psych: calm - Constitutional Vitals: Temp Pulse Resp BP Pulse Ox 98.9 F 92 H 18 149/79 90 05/22/19 12:39 05/22/19 12:39 05/22/19 12:39 05/22/19 12:39 05/22/19 12:39 General appearance: Present: no acute distress, obese Results - Labs CBC & Chem 7: 05/22/19 08:39 05/22/19 06:39 Labs: Laboratory Last Values WBC 8.9 K/mm3 (4.5-11.0) 05/22/19 08:39 RBC 4.09 M/mm3 (3.65-5.03) 05/22/19 08:39 Hgb 11.1 gm/dl (10.1-14.3) 05/22/19 08:39 Hct 36.9 % (30.3-42.9) 05/22/19 08:39 MCV 90 fl (79-97) 05/22/19 08:39 MCH 27 pg (28-32) L 05/22/19 08:39 MCHC 30 % (30-34) 05/22/19 08:39 RDW 18.1 % (13.2-15.2) H 05/22/19 08:39 Plt Count 220 K/mm3 (140-440) 05/22/19 08:39 Lymph % (Auto) 23.7 % (13.4-35.0) 05/22/19 08:39 [place] % (Auto) 13.8 % (0.0-7.3) H 05/22/19 08:39 Eos % (Auto) 0.8 % (0.0-4.3) 05/22/19 08:39 Baso % (Auto) 0.8 % (0.0-1.8) 05/22/19 08:39 Lymph # 2.1 K/mm3 (1.2-5.4) 05/22/19 08:39 [place] # 1.2 K/mm3 (0.0-0.8) H 05/22/19 08:39 Eos # 0.1 K/mm3 (0.0-0.4) 05/22/19 08:39 Baso # 0.1 K/mm3 (0.0-0.1) 05/22/19 08:39 Add Manual Diff TNR 05/22/19 06:39 Seg Neutrophils % 60.9 % (40.0-70.0) 05/22/19 08:39 Seg Neutrophils # 5.4 K/mm3 (1.8-7.7) 05/22/19 08:39 PT 13.9 Sec. (12.2-14.9) 05/19/19 15:02 INR 1.08 (0.87-1.13) 05/19/19 15:02 APTT 31.6 Sec. (24.2-36.6) 05/19/19 15:02 D-Dimer 1081.17 ng/mlDDU (0-234) H 05/21/19 20:19 POC ABG pH 7.331 (7.35-7.45) L 05/19/19 15:28 POC ABG pCO2 64.8 (35-45) H 05/19/19 15:28 POC ABG pO2 74 (80-105) L 05/19/19 15:28 POC ABG HCO3 34.2 (22-26 mml/L) 05/19/19 15:28 POC ABG Total CO2 36 (23-27mmol/L) 05/19/19 15:28 POC ABG O2 Sat 93 05/19/19 15:28 POC ABG Base Excess 8 ((-2) - (+3)mmol/L) 05/19/19 15:28 FiO2 36 % 05/19/19 15:28 Sodium 145 mmol/L (137-145) 05/22/19 06:39 Potassium 5.0 mmol/L (3.6-5.0) 05/22/19 06:39 Chloride 99.2 mmol/L (98-107) 05/22/19 06:39 Carbon Dioxide 35 mmol/L (22-30) H 05/22/19 06:39 Anion Gap 16 mmol/L 05/22/19 06:39 BUN 16 mg/dL (7-17) 05/22/19 06:39 Creatinine 1.6 mg/dL (0.7-1.2) H 05/22/19 06:39 Estimated GFR 40 ml/min 05/22/19 06:39 BUN/Creatinine Ratio 10 % 05/22/19 06:39 Glucose 89 mg/dL (65-100) 05/22/19 06:39 POC Glucose 106 (70-105) H 05/21/19 20:03 Calcium 9.3 mg/dL (8.4-10.2) 05/22/19 06:39 Phosphorus 3.90 mg/dL (2.5-4.5) 05/21/19 05:48 Magnesium 2.30 mg/dL (1.7-2.3) 05/22/19 06:39 Total Bilirubin 0.50 mg/dL (0.1-1.2) 05/20/19 08:15 AST 28 units/L (5-40) 05/20/19 08:15 ALT 19 units/L (7-56) 05/20/19 08:15 Alkaline Phosphatase 122 units/L (35-129) 05/20/19 08:15 Total Creatine Kinase 94 units/L (30-135) 05/19/19 15:21 Troponin T < 0.010 ng/mL (0.00-0.029) 05/19/19 15:21 NT-Pro-B Natriuret Pep 2138 pg/mL (0-900) H 05/19/19 15:19 Total Protein 8.4 g/dL (6.3-8.2) H 05/20/19 08:15 Albumin 4.0 g/dL (3.9-5) 05/20/19 08:15 Albumin/Globulin Ratio 0.9 % 05/20/19 08:15 Urine Color Yellow (Yellow) 05/20/19 Unknown Urine Turbidity Slightly-cloudy (Clear) 05/20/19 Unknown Urine pH 5.0 (5.0-7.0) 05/20/19 Unknown Ur Specific [place] 1.017 (1.003-1.030) 05/20/19 Unknown Urine Protein 30 mg/dl mg/dL (Negative) 05/20/19 Unknown Urine Glucose (UA) Neg mg/dL (Negative) 05/20/19 Unknown Urine Ketones Neg mg/dL (Negative) 05/20/19 Unknown Urine Blood Lg (Negative) 05/20/19 Unknown Urine Nitrite Neg (Negative) 05/20/19 Unknown Urine Bilirubin Neg (Negative) 05/20/19 Unknown Urine Urobilinogen < 2.0 mg/dL (<2.0) 05/20/19 Unknown Ur Leukocyte Esterase Neg (Negative) 05/20/19 Unknown Urine WBC (Auto) 16.0 /HPF (0.0-6.0) H 05/20/19 Unknown Urine RBC (Auto) 97.0 /HPF (0.0-6.0) 05/20/19 Unknown U Epithel Cells (Auto) 2.0 /HPF (0-13.0) 05/20/19 Unknown Urine Mucus Few /HPF 05/20/19 Unknown Urine Eosinophils None seen (None Seen) 05/20/19 Unknown Urine Creatinine 195.1 mg/dL (0.1-20.0) H 05/20/19 Unknown Urine Sodium 95 mmol/L 05/20/19 Unknown Active Medications - Current Medications Current Medications: Generic Name Dose Route Start Last Admin Trade Name Freq PRN Reason Stop Dose Admin Acetaminophen 650 mg 05/19/19 17:20 05/21/19 21:07 Tylenol PO 650 mg Q4H PRN Administration Pain MILD(1-3)/Fever >100.5/CHAVEZ Albuterol 2.5 mg 05/19/19 17:20 Proventil IH Q4HRT PRN Shortness Of Breath Amlodipine Besylate 10 mg 05/20/19 16:00 05/22/19 10:03 Amlodipine PO 10 mg QDAY MARCELLA Administration Atenolol 80 mg 05/20/19 10:00 05/22/19 10:04 Tenormin PO 80 mg QDAY MARCELLA Administration Furosemide 40 mg 05/21/19 06:00 05/22/19 05:36 Lasix IV 40 mg DAILY@0600 MARCELLA Administration Gabapentin 300 mg 05/19/19 22:00 05/22/19 09:55 Gabapentin PO 300 mg BID MARCELLA Administration Heparin Sodium (Porcine) 5,000 unit 05/21/19 14:45 05/22/19 13:15 Heparin SUB-Q 5,000 unit Q8HR MARCELLA Administration Ceftriaxone Sodium 2 gm in 100 mls @ 200 mls/hr 05/21/19 15:00 05/22/19 09:54 Rocephin/Ns 2 Gm/100 Ml IV 200 mls/hr Q24HR MARCELLA Administration Protocol Ondansetron HCl 4 mg 05/19/19 17:20 Zofran IV Q8H PRN Nausea And Vomiting Sodium Chloride 10 ml 05/19/19 22:00 05/22/19 09:55 Sodium Chloride Flush Syringe 10 Ml IV 10 ml BID MARCELLA Administration Sodium Chloride 10 ml 05/19/19 17:20 Sodium Chloride Flush Syringe 10 Ml IV PRN PRN LINE FLUSH
--- NOTE | 2019-05-22 18:13 | Progress Note ---
Assessment and Plan Patient is awake and alert. Sitting on the side of the bed. Pt is on 3 liters of O2. Saturation is 95%. Patient had venous doppler study of the legs and reported no DVT. Patient is unable to get V/Q scan. D-Dimer is 1081. Consider Angio CT of the chest. - Patient Problems (1) CHF (congestive heart failure) Current Visit: Yes Status: Acute Qualifiers: Heart failure type: systolic Heart failure chronicity: acute Qualified Code(s): I50.21 - Acute systolic (congestive) heart failure Plan to address problem: Management as per cardiology. (2) Respiratory failure Current Visit: Yes Status: Acute Qualifiers: Chronicity: acute Respiratory failure complication: hypoxia Qualified Code(s): J96.01 - Acute respiratory failure with hypoxia Plan to address problem: BIPAP 16/6, rate 16, FIO2 30%. Albuterol/atrovent aerosol treatments q 6 hours. Recommend DVT and GI Prophylaxis. (3) Morbid obesity with BMI of 60.0-69.9, adult Current Visit: Yes Status: Acute Plan to address problem: Counselled to loose weight. (4) Sleep apnea in adult Current Visit: Yes Status: Acute Plan to address problem: BIPAP 16.6, rate 16, FIO2 30% (5) Obesity hypoventilation syndrome Current Visit: Yes Status: Acute Plan to address problem: BIPAP 16/6, rate 16, FIO2 30%. Subjective Date of service: 05/22/19 Principal diagnosis: Acute on Chronic Kidney Disease Interval history: Patient is awake and alert. Sitting on the side of the bed. Pt is on 3 liters of O2. Saturation is 95%. Patient had venous doppler study of the legs and reported no DVT. Patient is unable to get V/Q scan. D-Dimer is 1081. Consider Angio CT of the chest. Objective Vital Signs - 12hr 05/22/19 05/22/19 05/22/19 07:05 09:00 10:03 Temperature Pulse Rate 102 H Respiratory Rate Blood Pressure 142/83 Blood Pressure 162/84 [Left] O2 Sat by Pulse 94 Oximetry 05/22/19 05/22/19 05/22/19 10:04 12:39 17:06 Temperature 98.9 F 102.1 F H Pulse Rate 102 H 92 H 98 H Respiratory 18 24 Rate Blood Pressure 142/83 149/79 161/82 Blood Pressure [Left] O2 Sat by Pulse 90 95 Oximetry Constitutional: no acute distress, alert Eyes: non-icteric ENT: oropharynx moist Neck: supple, no lymphadenopathy Effort: mildly labored Ascultation: Bilateral: diminished breath sounds, rales (Few rales.) Cardiovascular: regular rate and rhythm Gastrointestinal: normoactive bowel sounds, soft Integumentary: normal Extremities: no cyanosis, other (Trace edema.) Neurologic: normal mental status, non-focal exam, pupils equal and round, CN II- XII normal Psychiatric: anxious CBC and BMP: 05/23/19 06:36 05/23/19 06:36 ABG, PT/INR, D-dimer: ABG POC ABG pH 7.331 (7.35-7.45) L 05/19/19 15:28 POC ABG pCO2 64.8 (35-45) H 05/19/19 15:28 POC ABG pO2 74 (80-105) L 05/19/19 15:28 POC ABG HCO3 34.2 (22-26 mml/L) 05/19/19 15:28 POC ABG Total CO2 36 (23-27mmol/L) 05/19/19 15:28 POC ABG O2 Sat 93 05/19/19 15:28 PT/INR, D-dimer PT 13.9 Sec. (12.2-14.9) 05/19/19 15:02 INR 1.08 (0.87-1.13) 05/19/19 15:02 D-Dimer 1081.17 ng/mlDDU (0-234) H 05/21/19 20:19 Abnormal lab findings: Abnormal Labs 05/19/19 05/19/19 05/19/19 15:02 15:02 15:19 MCH 27 L RDW 18.2 H [place] % (Auto) [place] # Seg Neutrophils % D-Dimer POC ABG pH POC ABG pCO2 POC ABG pO2 Sodium 146 H Potassium Carbon Dioxide BUN 18 H Creatinine 1.5 H POC Glucose NT-Pro-B Natriuret Pep 2138 H Total Protein 8.4 H Albumin 3.5 L Urine WBC (Auto) Urine Creatinine 05/19/19 05/20/19 05/20/19 15:28 08:15 08:15 MCH 27 L RDW 18.0 H [place] % (Auto) 8.0 H [place] # Seg Neutrophils % 71.1 H D-Dimer POC ABG pH 7.331 L POC ABG pCO2 64.8 H POC ABG pO2 74 L Sodium 147 H Potassium Carbon Dioxide 32 H BUN 19 H Creatinine 1.7 H POC Glucose NT-Pro-B Natriuret Pep Total Protein 8.4 H Albumin Urine WBC (Auto) Urine Creatinine 05/20/19 05/20/19 05/21/19 Unknown Unknown 05:48 MCH 27 L RDW 18.2 H [place] % (Auto) 10.8 H [place] # 0.9 H Seg Neutrophils % D-Dimer POC ABG pH POC ABG pCO2 POC ABG pO2 Sodium Potassium Carbon Dioxide BUN Creatinine POC Glucose NT-Pro-B Natriuret Pep Total Protein Albumin Urine WBC (Auto) 16.0 H Urine Creatinine 195.1 H 05/21/19 05/21/19 05/21/19 05:48 20:03 20:19 MCH RDW [place] % (Auto) [place] # Seg Neutrophils % D-Dimer 1081.17 H POC ABG pH POC ABG pCO2 POC ABG pO2 Sodium Potassium 5.2 H Carbon Dioxide BUN Creatinine 1.6 H POC Glucose 106 H NT-Pro-B Natriuret Pep Total Protein Albumin Urine WBC (Auto) Urine Creatinine 05/22/19 05/22/19 06:39 08:39 MCH 27 L RDW 18.1 H [place] % (Auto) 13.8 H [place] # 1.2 H Seg Neutrophils % D-Dimer POC ABG pH POC ABG pCO2 POC ABG pO2 Sodium Potassium Carbon Dioxide 35 H BUN Creatinine 1.6 H POC Glucose NT-Pro-B Natriuret Pep Total Protein Albumin Urine WBC (Auto) Urine Creatinine
[2019-05-23] MEDS: HEPARIN 5,000 UNIT/1 ML VIAL SUB-Q SCH ×3 (05:52→21:44)
[2019-05-23] MEDS: FUROSEMIDE 40 MG/4 ML INJ IV SCH (05:52)
[2019-05-23 07:47] LABS: Basophils % (Auto) 0.4 % (0.0-1.8); Eosinophils # (Auto) 0.2 K/mm3 (0.0-0.4); Eosinophils % (Auto) 2.2 % (0.0-4.3); Lymphocytes # (Auto) 2.1 K/mm3 (1.2-5.4); Lymphocytes % (Auto) 28.9 % (13.4-35.0); Mean Corpuscular HGB Conc 30 % (30-34); Mean Corpuscular Volume 89 fl (79-97); Monocytes # (Auto) 0.9 K/mm3 (0.0-0.8); Monocytes % (Auto) 12.3 % (0.0-7.3); Platelet Count 202 K/mm3 (140-440); Red Blood Count 4.11 M/mm3 (3.65-5.03); Red Cell Distribution Width 18.1 % (13.2-15.2)
[2019-05-23 07:48] LABS: Hematocrit 36.8 % (30.3-42.9)
[2019-05-23 08:51] LABS: Calcium 9.4 mg/dL (8.4-10.2)
--- NOTE | 2019-05-23 09:09 | Progress Note ---
Assessment and Plan Shortness of breath due to CHF Kidney failure, acute vs. chronic Morbid obesity Mild Hyperkalemia Hypernatremia, Resolved Plan: - Renal labs reviewed. Serum creatinine is stable at 1.6 which is likely her baseline - Renally dose meds - Strict I&O monitoring - Obtain daily weights - Avoid nephrotoxic agents - Continue to monitor will sign off, she will be followed in my office upon discharge Attila marie MD [phone] Subjective Date of service: 05/23/19 Principal diagnosis: Acute on Chronic Kidney Disease Objective - Vital Signs Vital signs: Vital Signs - 12hr 05/22/19 05/22/19 05/23/19 22:00 22:55 00:28 Temperature 99.9 F H Pulse Rate 98 H 96 H Respiratory 20 26 H Rate Blood Pressure 133/75 O2 Sat by Pulse 95 89 6 L Oximetry 05/23/19 05/23/19 05:09 08:56 Temperature 99.8 F H Pulse Rate 99 H Respiratory 24 Rate Blood Pressure 148/82 O2 Sat by Pulse 94 99 Oximetry - Lab 05/23/19 06:36 05/23/19 06:36 Most recent lab results Calcium 9.4 mg/dL (8.4-10.2) 05/23/19 06:36 Phosphorus 3.70 mg/dL (2.5-4.5) 05/23/19 06:36 Magnesium 2.30 mg/dL (1.7-2.3) 05/22/19 06:39 Urine Creatinine 195.1 mg/dL (0.1-20.0) H 05/20/19 Unknown Urine Sodium 95 mmol/L 05/20/19 Unknown Medications & Allergies - Medications Allergies/Adverse Reactions: Allergies No Known Allergies Allergy (Unverified 07/29/18 11:34) Home Medications: Home Medications Medication Instructions Recorded Confirmed Last Taken Type Atenolol [Tenormin] 80 mg PO QDAY 05/19/19 05/19/19 Unknown History Gabapentin 300 mg PO BID 05/19/19 05/19/19 Unknown History Lisinopril [Zestril TAB] 40 mg PO QDAY 05/19/19 05/19/19 Unknown History Multivit-Minerals/Folic Acid [One 0.4 mg PO DAILY 05/19/19 05/20/19 Unknown History Daily Womens 50 Plus Tab] Tylenol Pm Ex-Strength Caplet 650 mg PO Q6H PRN 05/19/19 05/20/19 Unknown History Active Medications: Generic Name Dose Route Start Last Admin Trade Name Kaleb PRN Reason Stop Dose Admin Acetaminophen 650 mg 05/19/19 17:20 05/21/19 21:07 Tylenol PO 650 mg Q4H PRN Administration Pain MILD(1-3)/Fever >100.5/CHAVEZ Albuterol 2.5 mg 05/19/19 17:20 Proventil IH Q4HRT PRN Shortness Of Breath Amlodipine Besylate 10 mg 05/20/19 16:00 05/22/19 10:03 Amlodipine PO 10 mg QDAY MARCELLA Administration Atenolol 80 mg 05/20/19 10:00 05/22/19 10:04 Tenormin PO 80 mg QDAY MARCELLA Administration Furosemide 40 mg 05/21/19 06:00 05/23/19 05:52 Lasix IV 40 mg DAILY@0600 MARCELLA Administration Gabapentin 300 mg 05/19/19 22:00 05/22/19 23:21 Gabapentin PO 300 mg BID MARCELLA Administration Heparin Sodium (Porcine) 5,000 unit 05/21/19 14:45 05/23/19 05:52 Heparin SUB-Q 5,000 unit Q8HR MARCELLA Administration Ceftriaxone Sodium 2 gm in 100 mls @ 200 mls/hr 05/21/19 15:00 05/22/19 09:54 Rocephin/Ns 2 Gm/100 Ml IV 200 mls/hr Q24HR MARCELLA Administration Protocol Levofloxacin 500 mg 05/24/19 10:00 Levaquin PO Q48HR MARCELLA Ondansetron HCl 4 mg 05/19/19 17:20 Zofran IV Q8H PRN Nausea And Vomiting Sodium Chloride 10 ml 05/19/19 22:00 05/22/19 23:22 Sodium Chloride Flush Syringe 10 Ml IV 10 ml BID MARCELLA Administration Sodium Chloride 10 ml 05/19/19 17:20 Sodium Chloride Flush Syringe 10 Ml IV PRN PRN LINE FLUSH
--- NOTE | 2019-05-23 09:40 | Progress Note ---
Assessment and Plan Acute hypoxic respiratory failure Morbid obesity Obstructive sleep apnea poor compliance with her CPAP at home COPD Chronic hypertension An outpatient echocardiogram done six-months ago showed normal left ventricular systolic function, ejection fraction greater than 50%. Recommendation: No clinical, x-ray evidence of fluid overload or heart failure. No further cardiac workup is indicated current time. Subjective Date of service: 05/23/19 Principal diagnosis: Acute on Chronic Kidney Disease Interval history: Patient reports her breathing is better. Objective Vital Signs Temp Pulse Resp BP Pulse Ox 05/23/19 08:56 99 05/23/19 05:09 99.8 F H 99 H 24 148/82 94 05/23/19 00:28 96 H 26 H 6 L 05/22/19 22:55 99.9 F H 98 H 20 133/75 89 05/22/19 22:00 95 05/22/19 20:00 98 05/22/19 17:06 102.1 F H 98 H 24 161/82 95 05/22/19 12:39 98.9 F 92 H 18 149/79 90 05/22/19 10:04 102 H 142/83 05/22/19 10:03 102 H 142/83 - Physical Examination General: No Apparent Distress, Other (morbidly obese) HEENT: Positive: PERRL Cardiac: Positive: Reg Rate and Rhythm Lungs: Positive: Decreased Breath Sounds Neuro: Positive: Grossly Intact - Labs and Meds CBC 05/23/19 Range/Units 06:36 WBC 7.2 (4.5-11.0) K/mm3 RBC 4.11 (3.65-5.03) M/mm3 Hgb 11.0 (10.1-14.3) gm/dl Hct 36.8 (30.3-42.9) % Plt Count 202 (140-440) K/mm3 Lymph # 2.1 (1.2-5.4) K/mm3 [place] # 0.9 H (0.0-0.8) K/mm3 Eos # 0.2 (0.0-0.4) K/mm3 Baso # 0.0 (0.0-0.1) K/mm3 Comprehensive Metabolic Panel 05/23/19 Range/Units 06:36 Sodium 146 H (137-145) mmol/L Potassium 4.6 (3.6-5.0) mmol/L Chloride 97.9 L (98-107) mmol/L Carbon Dioxide 35 H (22-30) mmol/L BUN 17 (7-17) mg/dL Creatinine 1.6 H (0.7-1.2) mg/dL Glucose 79 (65-100) mg/dL Calcium 9.4 (8.4-10.2) mg/dL
[2019-05-23] MEDS: GABAPENTIN 300 MG CAP PO SCH ×2 (09:48→21:44)
[2019-05-23] MEDS: ACETAMINOPHEN 325 MG TAB PO PRN ×2 (09:48→18:11)
[2019-05-23] MEDS: atenoloL 50 MG TAB PO SCH (09:49)
[2019-05-23] MEDS: amLODIPine 10 MG TAB PO SCH (09:52)
[2019-05-23] MEDS: cefTRIAXone/NS 2 GM/100 ML 2 GM/100 ML BAG IV SCH ×2 (10:00→16:26)
--- NOTE | 2019-05-23 11:43 | Consultation ---
History of Present Illness - Reason for Consult Consult date: 05/23/19 - History of Present Illness 58 yo F PMHx obesity, obesity hypoventilation syndrome, HTN, HTN, COPD admitted to the hospital for 1 month of progressive SOB. 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 She also complains of associated Burns, leg edema, and orthopnea, and PND. After being seen by her outside computer patternmaker she was found to be hypoxic and directed to present to the hospital. She otherwise de nied fevers, sweats, chills. She was found to have symptoms of acute CHF. Otherwise asymptomatic. She has been febrile to 102.1 with a white count of 7. She is currently receiving ceftriaxone and levofloxacin. urinalysis with mild pyuria. Urine and blood cultures are negative thus far. Imaging personally reviewed: Chest CT: No acute change. History of gastric sleeve Review of systems: Bold if positive; otherwise negative GENERAL: fever, chills, weight loss, fatigue, night sweats EYES: blurry vision, eye pain HENT: headache, hearing loss, sore throat, dysphagia, sinus pain CARDIO: chest pain, palpitations, orthopnea PULM: shortness of breath, wheezing, cough, sputum, hemoptysis GI: nausea, vomiting, diarrhea, abdominal pain, blood in stool : urinary frequency, urgency, dysuria, urethral discharge MSK: joint pain, back pain, swelling SKIN: rash, redness HEME: easy bruising, bleeding Past History Past Medical History: COPD, GERD, hypertension, other (Sleep apnea, Gout,Allergic rhinitis.) Past Surgical History: Other (Gastric Bypass) Social history: . denies: smoking, alcohol abuse, prescription drug abuse Family history: diabetes, hypertension Medications and Allergies Allergies Allergy/AdvReac Type Severity Reaction Status Date / Time No Known Allergies Allergy Unverified 07/29/18 11:34 Home Medications Medication Instructions Recorded Confirmed Last Taken Type Atenolol [Tenormin] 80 mg PO QDAY 05/19/19 05/19/19 Unknown History Gabapentin 300 mg PO BID 05/19/19 05/19/19 Unknown History Lisinopril [Zestril TAB] 40 mg PO QDAY 05/19/19 05/19/19 Unknown History Multivit-Minerals/Folic Acid [One 0.4 mg PO DAILY 05/19/19 05/20/19 Unknown History Daily Womens 50 Plus Tab] Tylenol Pm Ex-Strength Caplet 650 mg PO Q6H PRN 05/19/19 05/20/19 Unknown History Active Meds: Active Medications Acetaminophen (Tylenol) 650 mg PO Q4H PRN PRN Reason: Pain MILD(1-3)/Fever >100.5/CHAVEZ Last Admin: 05/23/19 09:48 Dose: 650 mg Documented by: Albuterol (Proventil) 2.5 mg IH Q4HRT PRN PRN Reason: Shortness Of Breath Amlodipine Besylate (Amlodipine) 10 mg PO QDAY [facility] Last Admin: 05/23/19 09:52 Dose: 10 mg Documented by: Atenolol (Tenormin) 75 mg PO QDAY [facility] Furosemide (Lasix) 40 mg IV DAILY@0600 [facility] Last Admin: 05/23/19 05:52 Dose: 40 mg Documented by: Gabapentin (Gabapentin) 300 mg PO BID [facility] Last Admin: 05/23/19 09:48 Dose: 300 mg Documented by: Heparin Sodium (Porcine) (Heparin) 5,000 unit SUB-Q Q8HR [facility] Last Admin: 05/23/19 05:52 Dose: 5,000 unit Documented by: Ceftriaxone Sodium (Rocephin/Ns 2 Gm/100 Ml) 2 gm in 100 mls @ 200 mls/hr IV Q24HR [facility]; Protocol Last Admin: 05/22/19 09:54 Dose: 200 mls/hr Documented by: Levofloxacin (Levaquin) 500 mg PO Q48HR [facility] Ondansetron HCl (Zofran) 4 mg IV Q8H PRN PRN Reason: Nausea And Vomiting Sodium Chloride (Sodium Chloride Flush Syringe 10 Ml) 10 ml IV BID [facility] Last Admin: 05/23/19 09:51 Dose: 10 ml Documented by: Sodium Chloride (Sodium Chloride Flush Syringe 10 Ml) 10 ml IV PRN PRN PRN Reason: LINE FLUSH Physical Examination - Physical Exam Narrative exam: General Normal appearance, well developed, no acute distress, super obese. Eyes - PERRLA, EOM intact ENT - Moist mucous membranes, no lymphadenopathy Neck - No noticeable or palpable swelling, redness or rash around throat or on face Lymph Nodes - No lymphadenopathy Cardiovascular - RRR no m/r/g, no JVD, no carotid bruits Lungs - Clear to auscultation, no use of accessory muscles, no crackles or wheezes. Skin - No rashes, skin warm and dry, no erythematous areas Abdomen - Normal bowel sounds, abdomen soft and nontender Extremities - 2+edema, no cyanosis or clubbing Musculoskeletal - 5/5 strength, normal range of motion, no swollen or er ythematous joints. Neurological Alert and oriented x 3, CN 2-12 grossly intact. - Constitutional Vitals: Vital Signs Temp Pulse Resp BP Pulse Ox 99.8 F H 99 H 24 148/82 99 05/23/19 05:09 05/23/19 09:52 05/23/19 05:09 05/23/19 09:52 05/23/19 08:56 Temperature -Last 24 Hours Temperature 99.8 F Temperature 99.9 F Temperature 102.1 F Temperature 98.9 F Results - Labs CBC & Chem 7: 05/23/19 06:36 05/23/19 06:36 Labs: Abnormal lab results 05/23/19 05/23/19 Range/Units 06:36 06:36 MCH 27 L (28-32) pg RDW 18.1 H (13.2-15.2) % [place] % (Auto) 12.3 H (0.0-7.3) % [place] # 0.9 H (0.0-0.8) K/mm3 Sodium 146 H (137-145) mmol/L Chloride 97.9 L (98-107) mmol/L Carbon Dioxide 35 H (22-30) mmol/L Creatinine 1.6 H (0.7-1.2) mg/dL Assessment and Plan Cultures Blood culture 05/21/19 no growth to date Urine culture 05/22/19 no growth to date Assessment: 58 yo F PMHx obesity, obesity hypoventilation syndrome, HTN, HTN, COPD admitted with CHF dcompensation, found to be febrile. 1. Acute sepsis - possible secondary to UTI. Present with fevers and tachycardia 2. UTI - cultures negative, but repeat obtained after initiation of antibiotics. Will stop ceftriaxone and levofloxacin and start cefepime. 3. Acute CHF exacerbation 4. Morbid obesity 5. CKD vs CAROLANN - renally dose antibiotics. Recs: - stop ceftriaxone and levofloxacin - start cefepime 2g q12h. - follow up cultures G. Elsi Inder [facility] M: [phone] O: [phone] F: [phone]
--- NOTE | 2019-05-23 12:58 | Progress Note ---
Assessment and Plan Assessment and plan: Patient is a 58 yo woman with a history of obesity, bmi 68.3, Obesity Hypoventilation Syndrome (Noncompliant with CPAP), HTN, OA and COPD who presents with SOB over the past 1 month. Pt was found to have pulse oximetry of 76% on room air. Pt instructed to seek further care at [facility]. PT seen and evaluated in ED and found to have symptoms consistent with CHF Decompensation, Acute Hypoxemic Respiratory Failure, Acute Kidney Injury. * pCXR Impression: Cardiomegaly with mild congestive heart failure * CT chest without contrast IMPRESSION: No acute abnormality. * U/S venous doppler negative for DVT * 3v Left Knee Impression: OA * 3v Left ankle Impression: Soft tissue swelling, OA, plantar spur * V/Q scan unable to be done due to weight. * Outpatient ECHO reviewed from [facility], 10/30/2018 EF >50%, mild LVH, grade 1 diastolic dysfunction, -Acute hypoxic Respiratory failure: supplemental oxygen, pulse oximetry, NIPPV as clinically indicated, CT chest, chest x ray, reviewed, pulmonology consulted, input noted -Acute and chronic diastolic exacerbation: treat with diuretics, Echo done at Cardiology office (see above), Strict I/O, daily weight, supplemental oxygen, consulted Cardiology, input noted -CAROLANN (acute kidney injury), vasomotor nephropathy: Monitor UOP w shift, Nephrology consulted, avoid nephrotoxic agents, BMP, ivf resuscitation therapy as tolerated. -Obesity hypoventilation syndrome: supplemental oxygen, NIPPV as clinically indicated, pulse oximetry, balanced diet, increased physical activity as tolerated. Outpatient bariatric surgery. Pulmonology is following -Hypernatremia: Nephrology consulted, IVF resuscitation as tolerated, monitor bmp closely -Hyperkalemia, mild: give kayexalate, repeat level in AM -LUZ MARINA, noncompliant with CPAP: counseling done -Noncompliance with diuretics: counseling done, it she refuses, will discharge home -Extreme obesity, bmi 68: quitline counselor on weight reduction -Fevers, suspect UTI, urine ctx contaminated: ID consulted, input noted DVT prophylaxis: add sq heparin full code Disposition; continue inpatient care, History Interval history: Patient was seen and examined. Follow-up on current diagnosis of CHF. No overnight events reported to me. Patient denies any chest pain, shortness breath, nausea/vomiting or severe headaches. Imaging, nursing note, chart, labs and old chart reviewed. Discussed with patient. Patient taking lasix now, Son Joey at bedside. Hospitalist Physical - Physical exam Narrative exam: Gen: obese bmi 68, WDWN, NAD, Awake, Alert, Orientated HEENT: NCAT, EOMI, PERRL, OP Clear Neck: supple, no adenopathy, no thyromegaly, no JVD CVS/Heart: RRR, normal S1S2, pulses present bilaterally Chest/Lungs: diminished bs bilateral, Symmetrical chest expansion, good air entry bilaterally GI/Abdomen: soft, NT, large pannus good bowel sounds, no guarding or rebound /Bladder: no suprapubic tenderness, no CVA or paraspinal tenderness Extermity/Skin: bilateral BLE edema, no obvious rash MSK: FROM x 4 Neuro: CN 2-12 grossly intact, no new focal deficits Psych: calm - Constitutional Vitals: Temp Pulse Resp BP Pulse Ox 99.8 F H 99 H 24 148/82 99 05/23/19 05:09 05/23/19 09:52 05/23/19 05:09 05/23/19 09:52 05/23/19 08:56 General appearance: Present: no acute distress, obese Results - Labs CBC & Chem 7: 05/23/19 06:36 05/23/19 06:36 Labs: Laboratory Last Values WBC 7.2 K/mm3 (4.5-11.0) 05/23/19 06:36 RBC 4.11 M/mm3 (3.65-5.03) 05/23/19 06:36 Hgb 11.0 gm/dl (10.1-14.3) 05/23/19 06:36 Hct 36.8 % (30.3-42.9) 05/23/19 06:36 MCV 89 fl (79-97) 05/23/19 06:36 MCH 27 pg (28-32) L 05/23/19 06:36 MCHC 30 % (30-34) 05/23/19 06:36 RDW 18.1 % (13.2-15.2) H 05/23/19 06:36 Plt Count 202 K/mm3 (140-440) 05/23/19 06:36 Lymph % (Auto) 28.9 % (13.4-35.0) 05/23/19 06:36 [place] % (Auto) 12.3 % (0.0-7.3) H 05/23/19 06:36 Eos % (Auto) 2.2 % (0.0-4.3) 05/23/19 06:36 Baso % (Auto) 0.4 % (0.0-1.8) 05/23/19 06:36 Lymph # 2.1 K/mm3 (1.2-5.4) 05/23/19 06:36 [place] # 0.9 K/mm3 (0.0-0.8) H 05/23/19 06:36 Eos # 0.2 K/mm3 (0.0-0.4) 05/23/19 06:36 Baso # 0.0 K/mm3 (0.0-0.1) 05/23/19 06:36 Add Manual Diff TNR 05/22/19 06:39 Seg Neutrophils % 56.2 % (40.0-70.0) 05/23/19 06:36 Seg Neutrophils # 4.1 K/mm3 (1.8-7.7) 05/23/19 06:36 PT 13.9 Sec. (12.2-14.9) 05/19/19 15:02 INR 1.08 (0.87-1.13) 05/19/19 15:02 APTT 31.6 Sec. (24.2-36.6) 05/19/19 15:02 D-Dimer 1081.17 ng/mlDDU (0-234) H 05/21/19 20:19 POC ABG pH 7.331 (7.35-7.45) L 05/19/19 15:28 POC ABG pCO2 64.8 (35-45) H 05/19/19 15:28 POC ABG pO2 74 (80-105) L 05/19/19 15:28 POC ABG HCO3 34.2 (22-26 mml/L) 05/19/19 15:28 POC ABG Total CO2 36 (23-27mmol/L) 05/19/19 15:28 POC ABG O2 Sat 93 05/19/19 15:28 POC ABG Base Excess 8 ((-2) - (+3)mmol/L) 05/19/19 15:28 FiO2 36 % 05/19/19 15:28 Sodium 146 mmol/L (137-145) H 05/23/19 06:36 Potassium 4.6 mmol/L (3.6-5.0) 05/23/19 06:36 Chloride 97.9 mmol/L (98-107) L 05/23/19 06:36 Carbon Dioxide 35 mmol/L (22-30) H 05/23/19 06:36 Anion Gap 18 mmol/L 05/23/19 06:36 BUN 17 mg/dL (7-17) 05/23/19 06:36 Creatinine 1.6 mg/dL (0.7-1.2) H 05/23/19 06:36 Estimated GFR 40 ml/min 05/23/19 06:36 BUN/Creatinine Ratio 11 % 05/23/19 06:36 Glucose 79 mg/dL (65-100) 05/23/19 06:36 POC Glucose 106 (70-105) H 05/21/19 20:03 Calcium 9.4 mg/dL (8.4-10.2) 05/23/19 06:36 Phosphorus 3.70 mg/dL (2.5-4.5) 05/23/19 06:36 Magnesium 2.30 mg/dL (1.7-2.3) 05/22/19 06:39 Total Bilirubin 0.50 mg/dL (0.1-1.2) 05/20/19 08:15 AST 28 units/L (5-40) 05/20/19 08:15 ALT 19 units/L (7-56) 05/20/19 08:15 Alkaline Phosphatase 122 units/L (35-129) 05/20/19 08:15 Total Creatine Kinase 94 units/L (30-135) 05/19/19 15:21 Troponin T < 0.010 ng/mL (0.00-0.029) 05/19/19 15:21 NT-Pro-B Natriuret Pep 2138 pg/mL (0-900) H 05/19/19 15:19 Total Protein 8.4 g/dL (6.3-8.2) H 05/20/19 08:15 Albumin 4.0 g/dL (3.9-5) 05/20/19 08:15 Albumin/Globulin Ratio 0.9 % 05/20/19 08:15 Urine Color Yellow (Yellow) 05/20/19 Unknown Urine Turbidity Slightly-cloudy (Clear) 05/20/19 Unknown Urine pH 5.0 (5.0-7.0) 05/20/19 Unknown Ur Specific [place] 1.017 (1.003-1.030) 05/20/19 Unknown Urine Protein 30 mg/dl mg/dL (Negative) 05/20/19 Unknown Urine Glucose (UA) Neg mg/dL (Negative) 05/20/19 Unknown Urine Ketones Neg mg/dL (Negative) 05/20/19 Unknown Urine Blood Lg (Negative) 05/20/19 Unknown Urine Nitrite Neg (Negative) 05/20/19 Unknown Urine Bilirubin Neg (Negative) 05/20/19 Unknown Urine Urobilinogen < 2.0 mg/dL (<2.0) 05/20/19 Unknown Ur Leukocyte Esterase Neg (Negative) 05/20/19 Unknown Urine WBC (Auto) 16.0 /HPF (0.0-6.0) H 05/20/19 Unknown Urine RBC (Auto) 97.0 /HPF (0.0-6.0) 05/20/19 Unknown U Epithel Cells (Auto) 2.0 /HPF (0-13.0) 05/20/19 Unknown Urine Mucus Few /HPF 05/20/19 Unknown Urine Eosinophils None seen (None Seen) 05/20/19 Unknown Urine Creatinine 195.1 mg/dL (0.1-20.0) H 05/20/19 Unknown Urine Sodium 95 mmol/L 05/20/19 Unknown Active Medications - Current Medications Current Medications: Generic Name Dose Route Start Last Admin Trade Name Alejandroq PRN Reason Stop Dose Admin Acetaminophen 650 mg 05/19/19 17:20 05/23/19 09:48 Tylenol PO 650 mg Q4H PRN Administration Pain MILD(1-3)/Fever >100.5/CHAVEZ Albuterol 2.5 mg 05/19/19 17:20 Proventil IH Q4HRT PRN Shortness Of Breath Amlodipine Besylate 10 mg 05/20/19 16:00 05/23/19 09:52 Amlodipine PO 10 mg QDAY MARCELLA Administration Atenolol 75 mg 05/24/19 10:00 Tenormin PO QDAY MARCELLA Furosemide 40 mg 05/21/19 06:00 05/23/19 05:52 Lasix IV 40 mg DAILY@0600 MARCELLA Administration Gabapentin 300 mg 05/19/19 22:00 05/23/19 09:48 Gabapentin PO 300 mg BID MARCELLA Administration Heparin Sodium (Porcine) 5,000 unit 05/21/19 14:45 05/23/19 05:52 Heparin SUB-Q 5,000 unit Q8HR MARCELLA Administration Cefepime HCl 2 gm in 100 mls @ 200 mls/hr 05/23/19 13:00 Cefepime/Ns 2 Gm/100 Ml IV Q12HR [facility] Protocol Ondansetron HCl 4 mg 05/19/19 17:20 Zofran IV Q8H PRN Nausea And Vomiting Sodium Chloride 10 ml 05/19/19 22:00 05/23/19 09:51 Sodium Chloride Flush Syringe 10 Ml IV 10 ml BID MARCELLA Administration Sodium Chloride 10 ml 05/19/19 17:20 Sodium Chloride Flush Syringe 10 Ml IV PRN PRN LINE FLUSH
[2019-05-23] MEDS: CEFEPIME/NS 2 GM/100 ML 2 GM/100 ML BAG IV SCH ×2 (15:00→22:37)
--- NOTE | 2019-05-23 18:53 | Progress Note ---
Assessment and Plan Patient is awake and alert. Pt is on 3 liters of O2. Saturation is 93%. Patient had venous doppler study of the legs and reported no DVT. Patient is unable to get V/Q scan. D-Dimer is 1081. Consider Angio CT of the chest. Also recommend Echocardiogram. - Patient Problems (1) CHF (congestive heart failure) Current Visit: Yes Status: Acute Qualifiers: Heart failure type: systolic Heart failure chronicity: acute Qualified Code(s): I50.21 - Acute systolic (congestive) heart failure Plan to address problem: Management as per cardiology. (2) Respiratory failure Current Visit: Yes Status: Acute Qualifiers: Chronicity: acute Respiratory failure complication: hypoxia Qualified Code(s): J96.01 - Acute respiratory failure with hypoxia Plan to address problem: BIPAP 16/6, rate 16, FIO2 30%. Albuterol/atrovent aerosol treatments q 6 hours. Recommend DVT and GI Prophylaxis. (3) Morbid obesity with BMI of 60.0-69.9, adult Current Visit: Yes Status: Acute Plan to address problem: Counselled to loose weight. (4) Sleep apnea in adult Current Visit: Yes Status: Acute Plan to address problem: BIPAP 16.6, rate 16, FIO2 30% (5) Obesity hypoventilation syndrome Current Visit: Yes Status: Acute Plan to address problem: BIPAP 16/6, rate 16, FIO2 30%. Subjective Date of service: 05/23/19 Principal diagnosis: Acute on Chronic Kidney Disease Interval history: Patient is awake and alert. Pt is on 3 liters of O2. Saturation is 93%. Patient had venous doppler study of the legs and reported no DVT. Patient is unable to get V/Q scan. D-Dimer is 1081. Consider Angio CT of the chest. Objective Vital Signs - 12hr 05/23/19 05/23/19 05/23/19 08:00 08:56 09:49 Temperature Pulse Rate 99 H Respiratory Rate Blood Pressure 148/82 O2 Sat by Pulse 96 99 Oximetry 05/23/19 05/23/19 09:52 13:54 Temperature 98.6 F Pulse Rate 99 H 86 Respiratory 16 Rate Blood Pressure 148/82 126/72 O2 Sat by Pulse 93 Oximetry Constitutional: no acute distress, alert Eyes: non-icteric ENT: oropharynx moist Neck: supple, no lymphadenopathy Effort: mildly labored Ascultation: Bilateral: diminished breath sounds, rales (Few rales.) Cardiovascular: regular rate and rhythm Gastrointestinal: normoactive bowel sounds, soft Integumentary: normal Extremities: no cyanosis, other (Trace edema.) Neurologic: normal mental status, non-focal exam, pupils equal and round, CN II- XII normal Psychiatric: anxious CBC and BMP: 05/23/19 06:36 05/23/19 06:36 ABG, PT/INR, D-dimer: ABG POC ABG pH 7.331 (7.35-7.45) L 05/19/19 15:28 POC ABG pCO2 64.8 (35-45) H 05/19/19 15:28 POC ABG pO2 74 (80-105) L 05/19/19 15:28 POC ABG HCO3 34.2 (22-26 mml/L) 05/19/19 15:28 POC ABG Total CO2 36 (23-27mmol/L) 05/19/19 15:28 POC ABG O2 Sat 93 05/19/19 15:28 PT/INR, D-dimer PT 13.9 Sec. (12.2-14.9) 05/19/19 15:02 INR 1.08 (0.87-1.13) 05/19/19 15:02 D-Dimer 1081.17 ng/mlDDU (0-234) H 05/21/19 20:19 Abnormal lab findings: Abnormal Labs 05/19/19 05/19/19 05/19/19 15:02 15:02 15:19 MCH 27 L RDW 18.2 H [place] % (Auto) [place] # Seg Neutrophils % D-Dimer POC ABG pH POC ABG pCO2 POC ABG pO2 Sodium 146 H Potassium Chloride Carbon Dioxide BUN 18 H Creatinine 1.5 H POC Glucose NT-Pro-B Natriuret Pep 2138 H Total Protein 8.4 H Albumin 3.5 L Urine WBC (Auto) Urine Creatinine 05/19/19 05/20/19 05/20/19 15:28 08:15 08:15 MCH 27 L RDW 18.0 H [place] % (Auto) 8.0 H [place] # Seg Neutrophils % 71.1 H D-Dimer POC ABG pH 7.331 L POC ABG pCO2 64.8 H POC ABG pO2 74 L Sodium 147 H Potassium Chloride Carbon Dioxide 32 H BUN 19 H Creatinine 1.7 H POC Glucose NT-Pro-B Natriuret Pep Total Protein 8.4 H Albumin Urine WBC (Auto) Urine Creatinine 05/20/19 05/20/19 05/21/19 Unknown Unknown 05:48 MCH 27 L RDW 18.2 H [place] % (Auto) 10.8 H [place] # 0.9 H Seg Neutrophils % D-Dimer POC ABG pH POC ABG pCO2 POC ABG pO2 Sodium Potassium Chloride Carbon Dioxide BUN Creatinine POC Glucose NT-Pro-B Natriuret Pep Total Protein Albumin Urine WBC (Auto) 16.0 H Urine Creatinine 195.1 H 05/21/19 05/21/19 05/21/19 05:48 20:03 20:19 MCH RDW [place] % (Auto) [place] # Seg Neutrophils % D-Dimer 1081.17 H POC ABG pH POC ABG pCO2 POC ABG pO2 Sodium Potassium 5.2 H Chloride Carbon Dioxide BUN Creatinine 1.6 H POC Glucose 106 H NT-Pro-B Natriuret Pep Total Protein Albumin Urine WBC (Auto) Urine Creatinine 05/22/19 05/22/19 05/23/19 06:39 08:39 06:36 MCH 27 L 27 L RDW 18.1 H 18.1 H [place] % (Auto) 13.8 H 12.3 H [place] # 1.2 H 0.9 H Seg Neutrophils % D-Dimer POC ABG pH POC ABG pCO2 POC ABG pO2 Sodium Potassium Chloride Carbon Dioxide 35 H BUN Creatinine 1.6 H POC Glucose NT-Pro-B Natriuret Pep Total Protein Albumin Urine WBC (Auto) Urine Creatinine 05/23/19 06:36 MCH RDW [place] % (Auto) [place] # Seg Neutrophils % D-Dimer POC ABG pH POC ABG pCO2 POC ABG pO2 Sodium 146 H Potassium Chloride 97.9 L Carbon Dioxide 35 H BUN Creatinine 1.6 H POC Glucose NT-Pro-B Natriuret Pep Total Protein Albumin Urine WBC (Auto) Urine Creatinine
[2019-05-24] MEDS: FUROSEMIDE 40 MG/4 ML INJ IV SCH (06:55)
[2019-05-24] MEDS: HEPARIN 5,000 UNIT/1 ML VIAL SUB-Q SCH ×3 (06:55→22:39)
[2019-05-24 07:07] LABS: Basophils # (Auto) 0.1 K/mm3 (0.0-0.1); Basophils % (Auto) 1.1 % (0.0-1.8); Eosinophils # (Auto) 0.2 K/mm3 (0.0-0.4); Eosinophils % (Auto) 2.4 % (0.0-4.3); Lymphocytes # (Auto) 1.1 K/mm3 (1.2-5.4); Lymphocytes % (Auto) 17.9 % (13.4-35.0); Mean Corpuscular HGB Conc 30 % (30-34); Mean Corpuscular Volume 91 fl (79-97); Monocytes # (Auto) 0.7 K/mm3 (0.0-0.8); Monocytes % (Auto) 10.8 % (0.0-7.3); Platelet Count 185 K/mm3 (140-440); Red Blood Count 4.09 M/mm3 (3.65-5.03); Red Cell Distribution Width 17.8 % (13.2-15.2)
[2019-05-24 08:07] LABS: Calcium 9.4 mg/dL (8.4-10.2)
--- NOTE | 2019-05-24 08:35 | Progress Note ---
Assessment and Plan Acute hypoxic Respiratory failure LUZ MARINA, noncompliant with CPAP Acute and chronic diastolic exacerbation CAROLANN (acute kidney injury) Obesity hypoventilation syndrome Hyperkalemia Noncompliance with diuretics Extreme obesity, bmi 68 Pyrexia - home oxygen evaluation - continue supplemental oxygen as needed to keep O2 sat's > 90% - continue bronchodilators with pulmonary hygiene per RT - continue gentle diuresis - weight loss counseled - PT/OT as tolerated - mobility protocols for pressure ulcer prophylaxis - GI & VTE prophylaxis - Flu & pneumovax addressed per protocol - continue other care per attending / other consultants ... re-evaluate in am & prn Subjective Date of service: 05/24/19 Principal diagnosis: Ac. hypoxemic Resp failure; LUZ MARINA/OHS; Ac on Ch HFpEF; CAROLANN Interval history: Patient is seen today for: Acute hypoxemic Respiratory failure; LUZ MARINA/OHS; Acute and chronic diastolic exacerbation; CAROLANN (acute kidney injury); Hyperkalemia; Extreme obesity, bmi 68; Pyrexia Seen and examined at bedside; 24hour events reviewed; nursing and respiratory care staff consulted; no adverse overnight events reported to me; sitting on side of bed; slept well; used BIPAP but states she does not like it; denies acute chest pains or palpitations Objective Vital Signs - 12hr 05/23/19 05/24/19 05/24/19 23:33 00:21 00:22 Temperature 98.7 F Pulse Rate 85 Respiratory 20 Rate Blood Pressure 149/77 O2 Sat by Pulse 94 95 95 Oximetry 05/24/19 06:19 Temperature 98.6 F Pulse Rate 98 H Respiratory 20 Rate Blood Pressure 146/90 O2 Sat by Pulse 95 Oximetry Constitutional: no acute distress, alert, other (middle aged morbidly obese AAF, normocephalic with normal respiratory effort at rest) Eyes: non-icteric ENT: oropharynx moist Neck: supple, no lymphadenopathy Effort: mildly labored Ascultation: Bilateral: clear, diminished breath sounds Percussion: Bilateral: not dull Cardiovascular: regular rate and rhythm Gastrointestinal: normoactive bowel sounds, soft, non-tender, other (protuberant) Integumentary: rash (stasis dermatitis to shins) Extremities: no cyanosis, no edema, pulses normal, no ischemia or petechiae, other (Trace edema.) Neurologic: normal mental status, non-focal exam, pupils equal and round, CN II-XII normal Psychiatric: mood appropriate, affect normal CBC and BMP: 05/24/19 06:38 05/24/19 06:38 ABG, PT/INR, D-dimer: ABG POC ABG pH 7.331 (7.35-7.45) L 05/19/19 15:28 POC ABG pCO2 64.8 (35-45) H 05/19/19 15:28 POC ABG pO2 74 (80-105) L 05/19/19 15:28 POC ABG HCO3 34.2 (22-26 mml/L) 05/19/19 15:28 POC ABG Total CO2 36 (23-27mmol/L) 05/19/19 15:28 POC ABG O2 Sat 93 05/19/19 15:28 PT/INR, D-dimer PT 13.9 Sec. (12.2-14.9) 05/19/19 15:02 INR 1.08 (0.87-1.13) 05/19/19 15:02 D-Dimer 1081.17 ng/mlDDU (0-234) H 05/21/19 20:19 Abnormal lab findings: Abnormal Labs 05/19/19 05/19/19 05/19/19 15:02 15:02 15:19 MCH 27 L RDW 18.2 H [place] % (Auto) Lymph # [place] # Seg Neutrophils % D-Dimer POC ABG pH POC ABG pCO2 POC ABG pO2 Sodium 146 H Potassium Chloride Carbon Dioxide BUN 18 H Creatinine 1.5 H POC Glucose NT-Pro-B Natriuret Pep 2138 H Total Protein 8.4 H Albumin 3.5 L Urine WBC (Auto) Urine Creatinine 05/19/19 05/20/19 05/20/19 15:28 08:15 08:15 MCH 27 L RDW 18.0 H [place] % (Auto) 8.0 H Lymph # [place] # Seg Neutrophils % 71.1 H D-Dimer POC ABG pH 7.331 L POC ABG pCO2 64.8 H POC ABG pO2 74 L Sodium 147 H Potassium Chloride Carbon Dioxide 32 H BUN 19 H Creatinine 1.7 H POC Glucose NT-Pro-B Natriuret Pep Total Protein 8.4 H Albumin Urine WBC (Auto) Urine Creatinine 05/20/19 05/20/19 05/21/19 Unknown Unknown 05:48 MCH 27 L RDW 18.2 H [place] % (Auto) 10.8 H Lymph # [place] # 0.9 H Seg Neutrophils % D-Dimer POC ABG pH POC ABG pCO2 POC ABG pO2 Sodium Potassium Chloride Carbon Dioxide BUN Creatinine POC Glucose NT-Pro-B Natriuret Pep Total Protein Albumin Urine WBC (Auto) 16.0 H Urine Creatinine 195.1 H 05/21/19 05/21/19 05/21/19 05:48 20:03 20:19 MCH RDW [place] % (Auto) Lymph # [place] # Seg Neutrophils % D-Dimer 1081.17 H POC ABG pH POC ABG pCO2 POC ABG pO2 Sodium Potassium 5.2 H Chloride Carbon Dioxide BUN Creatinine 1.6 H POC Glucose 106 H NT-Pro-B Natriuret Pep Total Protein Albumin Urine WBC (Auto) Urine Creatinine 05/22/19 05/22/19 05/23/19 06:39 08:39 06:36 MCH 27 L 27 L RDW 18.1 H 18.1 H [place] % (Auto) 13.8 H 12.3 H Lymph # [place] # 1.2 H 0.9 H Seg Neutrophils % D-Dimer POC ABG pH POC ABG pCO2 POC ABG pO2 Sodium Potassium Chloride Carbon Dioxide 35 H BUN Creatinine 1.6 H POC Glucose NT-Pro-B Natriuret Pep Total Protein Albumin Urine WBC (Auto) Urine Creatinine 05/23/19 05/24/19 05/24/19 06:36 06:38 06:38 MCH 27 L RDW 17.8 H [place] % (Auto) 10.8 H Lymph # 1.1 L [place] # Seg Neutrophils % D-Dimer POC ABG pH POC ABG pCO2 POC ABG pO2 Sodium 146 H Potassium 5.2 H Chloride 97.9 L 95.9 L Carbon Dioxide 35 H 38 H BUN 18 H Creatinine 1.6 H 1.4 H POC Glucose NT-Pro-B Natriuret Pep Total Protein Albumin Urine WBC (Auto) Urine Creatinine Chest x-ray: image reviewed Allied health notes reviewed: nursing
[2019-05-24] MEDS: CEFEPIME/NS 2 GM/100 ML 2 GM/100 ML BAG IV SCH ×2 (09:58→22:42)
[2019-05-24] MEDS: atenoloL 50 MG TAB PO SCH (09:58)
[2019-05-24] MEDS: amLODIPine 10 MG TAB PO SCH (09:59)
[2019-05-24] MEDS: GABAPENTIN 300 MG CAP PO SCH ×2 (10:00→22:39)
[2019-05-24] MEDS ORDERED: levoFLOXacin 500 MG TAB PO SCH (10:00)
--- NOTE | 2019-05-24 12:29 | Progress Note ---
Assessment and Plan - Patient Problems (1) Obesity hypoventilation syndrome Current Visit: Yes Status: Acute Plan to address problem: Patient is being managed for respiratory failure due to severe obesity, obstructive sleep apnea, COPD and noncompliance with home CPAP therapy. Subjective Date of service: 05/24/19 Principal diagnosis: Ac. hypoxemic Resp failure; LUZ MARINA/OHS; Ac on Ch HFpEF; CAROLANN Interval history: Patient is comfortable, shortness of breath has improved. No new cardiac complaints. Objective Vital Signs Temp Pulse Resp BP Pulse Ox 05/24/19 11:44 93 05/24/19 10:00 80 L 05/24/19 06:19 98.6 F 98 H 20 146/90 95 05/24/19 00:22 95 05/24/19 00:21 95 05/23/19 23:33 98.7 F 85 20 149/77 94 05/23/19 20:00 95 05/23/19 16:57 99.4 F 86 24 133/80 93 05/23/19 13:54 98.6 F 86 16 126/72 93 - Physical Examination General: No Apparent Distress, Other (morbidly obese) HEENT: Positive: PERRL Neck: Positive: neck supple Cardiac: Positive: Reg Rate and Rhythm Lungs: Positive: Decreased Breath Sounds Neuro: Positive: Grossly Intact Abdomen: Positive: Soft Skin: Positive: Clear Extremities: Absent: edema - Labs and Meds CBC 05/24/19 Range/Units 06:38 WBC 6.4 (4.5-11.0) K/mm3 RBC 4.09 (3.65-5.03) M/mm3 Hgb 11.0 (10.1-14.3) gm/dl Hct 37.0 (30.3-42.9) % Plt Count 185 (140-440) K/mm3 Lymph # 1.1 L (1.2-5.4) K/mm3 [place] # 0.7 (0.0-0.8) K/mm3 Eos # 0.2 (0.0-0.4) K/mm3 Baso # 0.1 (0.0-0.1) K/mm3 Comprehensive Metabolic Panel 05/24/19 Range/Units 06:38 Sodium 143 (137-145) mmol/L Potassium 5.2 H (3.6-5.0) mmol/L Chloride 95.9 L (98-107) mmol/L Carbon Dioxide 38 H (22-30) mmol/L BUN 18 H (7-17) mg/dL Creatinine 1.4 H (0.7-1.2) mg/dL Glucose 85 (65-100) mg/dL Calcium 9.4 (8.4-10.2) mg/dL
--- NOTE | 2019-05-24 14:06 | Progress Note ---
Assessment and Plan Assessment and plan: Patient is a 58 yo woman with a history of obesity, bmi 68.3, Obesity Hypoventilation Syndrome (Noncompliant with CPAP), HTN, OA and COPD who presents with SOB over the past 1 month. Pt was found to have pulse oximetry of 76% on room air. Pt instructed to seek further care at [facility]. PT seen and evaluated in ED and found to have symptoms consistent with CHF Decompensation, Acute Hypoxemic Respiratory Failure, Acute Kidney Injury. * pCXR Impression: Cardiomegaly with mild congestive heart failure * CT chest without contrast IMPRESSION: No acute abnormality. * U/S venous doppler negative for DVT * 3v Left Knee Impression: OA * 3v Left ankle Impression: Soft tissue swelling, OA, plantar spur * V/Q scan unable to be done due to weight. * Outpatient ECHO reviewed from [facility], 10/30/2018 EF >50%, mild LVH, grade 1 diastolic dysfunction, -Acute hypoxic Respiratory failure: supplemental oxygen, pulse oximetry, NIPPV as clinically indicated, CT chest, chest x ray, reviewed, pulmonology consulted, input noted -Acute and chronic diastolic exacerbation: treat with diuretics, Echo done at Cardiology office (see above), Strict I/O, daily weight, supplemental oxygen, consulted Cardiology, input noted -CAROLANN (acute kidney injury), vasomotor nephropathy: Monitor UOP w shift, Nephrology consulted, avoid nephrotoxic agents, BMP, ivf resuscitation therapy as tolerated. -Obesity hypoventilation syndrome: supplemental oxygen, NIPPV as clinically indicated, pulse oximetry, balanced diet, increased physical activity as tolerated. Outpatient bariatric surgery. Pulmonology is following -Hypernatremia: Nephrology consulted, IVF resuscitation as tolerated, monitor bmp closely -Hyperkalemia, mild: give kayexalate, repeat level in AM -LUZ MARINA, noncompliant with CPAP: counseling done -Noncompliance with diuretics: counseling done, it she refuses, will discharge home -Extreme obesity, bmi 68: elder counselor on weight reduction -Fevers, suspect UTI, urine ctx contaminated: ID consulted, input noted DVT prophylaxis: add sq heparin full code Disposition; continue inpatient care, History Interval history: Patient was seen and examined. Follow-up on current diagnosis of CHF. No overnight events reported to me. Patient denies any chest pain, shortness breath, nausea/vomiting or severe headaches. Imaging, nursing note, chart, labs and old chart reviewed. Discussed with patient. Hospitalist Physical - Physical exam Narrative exam: Gen: obese bmi 68, WDWN, NAD, Awake, Alert, Orientated HEENT: NCAT, EOMI, PERRL, OP Clear Neck: supple, no adenopathy, no thyromegaly, no JVD CVS/Heart: RRR, normal S1S2, pulses present bilaterally Chest/Lungs: diminished bs bilateral, Symmetrical chest expansion, good air entry bilaterally GI/Abdomen: soft, NT, large pannus good bowel sounds, no guarding or rebound /Bladder: no suprapubic tenderness, no CVA or paraspinal tenderness Extermity/Skin: bilateral BLE edema, no obvious rash MSK: FROM x 4 Neuro: CN 2-12 grossly intact, no new focal deficits Psych: calm - Constitutional Vitals: Temp Pulse Resp BP Pulse Ox 98.4 F 98 H 20 151/77 93 05/24/19 12:14 05/24/19 06:19 05/24/19 12:14 05/24/19 12:14 05/24/19 11:44 General appearance: Present: no acute distress, obese Results - Labs CBC & Chem 7: 05/24/19 06:38 05/24/19 06:38 Labs: Laboratory Last Values WBC 6.4 K/mm3 (4.5-11.0) 05/24/19 06:38 RBC 4.09 M/mm3 (3.65-5.03) 05/24/19 06:38 Hgb 11.0 gm/dl (10.1-14.3) 05/24/19 06:38 Hct 37.0 % (30.3-42.9) 05/24/19 06:38 MCV 91 fl (79-97) 05/24/19 06:38 MCH 27 pg (28-32) L 05/24/19 06:38 MCHC 30 % (30-34) 05/24/19 06:38 RDW 17.8 % (13.2-15.2) H 05/24/19 06:38 Plt Count 185 K/mm3 (140-440) 05/24/19 06:38 Lymph % (Auto) 17.9 % (13.4-35.0) 05/24/19 06:38 [place] % (Auto) 10.8 % (0.0-7.3) H 05/24/19 06:38 Eos % (Auto) 2.4 % (0.0-4.3) 05/24/19 06:38 Baso % (Auto) 1.1 % (0.0-1.8) 05/24/19 06:38 Lymph # 1.1 K/mm3 (1.2-5.4) L 05/24/19 06:38 [place] # 0.7 K/mm3 (0.0-0.8) 05/24/19 06:38 Eos # 0.2 K/mm3 (0.0-0.4) 05/24/19 06:38 Baso # 0.1 K/mm3 (0.0-0.1) 05/24/19 06:38 Add Manual Diff TNR 05/22/19 06:39 Seg Neutrophils % 67.8 % (40.0-70.0) 05/24/19 06:38 Seg Neutrophils # 4.3 K/mm3 (1.8-7.7) 05/24/19 06:38 PT 13.9 Sec. (12.2-14.9) 05/19/19 15:02 INR 1.08 (0.87-1.13) 05/19/19 15:02 APTT 31.6 Sec. (24.2-36.6) 05/19/19 15:02 D-Dimer 1081.17 ng/mlDDU (0-234) H 05/21/19 20:19 POC ABG pH 7.437 (7.35-7.45) 05/24/19 11:15 POC ABG pCO2 64.2 (35-45) H 05/24/19 11:15 POC ABG pO2 74 (80-105) L 05/19/19 15:28 POC ABG HCO3 43.3 (22-26 mml/L) 05/24/19 11:15 POC ABG Total CO2 45 (23-27mmol/L) 05/24/19 11:15 POC ABG O2 Sat 69 05/24/19 11:15 POC ABG Base Excess 19 ((-2) - (+3)mmol/L) 05/24/19 11:15 FiO2 21 % 05/24/19 11:15 Sodium 143 mmol/L (137-145) 05/24/19 06:38 Potassium 5.2 mmol/L (3.6-5.0) H 05/24/19 06:38 Chloride 95.9 mmol/L (98-107) L 05/24/19 06:38 Carbon Dioxide 38 mmol/L (22-30) H 05/24/19 06:38 Anion Gap 14 mmol/L 05/24/19 06:38 BUN 18 mg/dL (7-17) H 05/24/19 06:38 Creatinine 1.4 mg/dL (0.7-1.2) H 05/24/19 06:38 Estimated GFR 47 ml/min 05/24/19 06:38 BUN/Creatinine Ratio 13 % 05/24/19 06:38 Glucose 85 mg/dL (65-100) 05/24/19 06:38 POC Glucose 106 (70-105) H 05/21/19 20:03 Calcium 9.4 mg/dL (8.4-10.2) 05/24/19 06:38 Phosphorus 3.70 mg/dL (2.5-4.5) 05/23/19 06:36 Magnesium 2.30 mg/dL (1.7-2.3) 05/22/19 06:39 Total Bilirubin 0.50 mg/dL (0.1-1.2) 05/20/19 08:15 AST 28 units/L (5-40) 05/20/19 08:15 ALT 19 units/L (7-56) 05/20/19 08:15 Alkaline Phosphatase 122 units/L (35-129) 05/20/19 08:15 Total Creatine Kinase 94 units/L (30-135) 05/19/19 15:21 Troponin T < 0.010 ng/mL (0.00-0.029) 05/19/19 15:21 NT-Pro-B Natriuret Pep 2138 pg/mL (0-900) H 05/19/19 15:19 Total Protein 8.4 g/dL (6.3-8.2) H 05/20/19 08:15 Albumin 4.0 g/dL (3.9-5) 05/20/19 08:15 Albumin/Globulin Ratio 0.9 % 05/20/19 08:15 Urine Color Yellow (Yellow) 05/20/19 Unknown Urine Turbidity Slightly-cloudy (Clear) 05/20/19 Unknown Urine pH 5.0 (5.0-7.0) 05/20/19 Unknown Ur Specific [place] 1.017 (1.003-1.030) 05/20/19 Unknown Urine Protein 30 mg/dl mg/dL (Negative) 05/20/19 Unknown Urine Glucose (UA) Neg mg/dL (Negative) 05/20/19 Unknown Urine Ketones Neg mg/dL (Negative) 05/20/19 Unknown Urine Blood Lg (Negative) 05/20/19 Unknown Urine Nitrite Neg (Negative) 05/20/19 Unknown Urine Bilirubin Neg (Negative) 05/20/19 Unknown Urine Urobilinogen < 2.0 mg/dL (<2.0) 05/20/19 Unknown Ur Leukocyte Esterase Neg (Negative) 05/20/19 Unknown Urine WBC (Auto) 16.0 /HPF (0.0-6.0) H 05/20/19 Unknown Urine RBC (Auto) 97.0 /HPF (0.0-6.0) 05/20/19 Unknown U Epithel Cells (Auto) 2.0 /HPF (0-13.0) 05/20/19 Unknown Urine Mucus Few /HPF 05/20/19 Unknown Urine Eosinophils None seen (None Seen) 05/20/19 Unknown Urine Creatinine 195.1 mg/dL (0.1-20.0) H 05/20/19 Unknown Urine Sodium 95 mmol/L 05/20/19 Unknown Active Medications - Current Medications Current Medications: Generic Name Dose Route Start Last Admin Trade Name Freq PRN Reason Stop Dose Admin Acetaminophen 650 mg 05/19/19 17:20 05/23/19 18:11 Tylenol PO 650 mg Q4H PRN Administration Pain MILD(1-3)/Fever >100.5/CHAVEZ Albuterol 2.5 mg 05/19/19 17:20 Proventil IH Q4HRT PRN Shortness Of Breath Amlodipine Besylate 10 mg 05/20/19 16:00 05/24/19 09:59 Amlodipine PO 10 mg QDAY MARCELLA Administration Atenolol 75 mg 05/24/19 10:00 05/24/19 09:58 Tenormin PO 75 mg QDAY MARCELLA Administration Furosemide 40 mg 05/21/19 06:00 05/24/19 06:55 Lasix IV 40 mg DAILY@0600 MARCELLA Administration Gabapentin 300 mg 05/19/19 22:00 05/24/19 10:00 Gabapentin PO 300 mg BID MARCELLA Administration Heparin Sodium (Porcine) 5,000 unit 05/21/19 14:45 05/24/19 13:14 Heparin SUB-Q 5,000 unit Q8HR MARCELLA Administration Cefepime HCl 2 gm in 100 mls @ 200 mls/hr 05/23/19 13:00 05/24/19 09:58 Cefepime/Ns 2 Gm/100 Ml IV 200 mls/hr Q12HR MARCELLA Administration Protocol Ondansetron HCl 4 mg 05/19/19 17:20 Zofran IV Q8H PRN Nausea And Vomiting Sodium Chloride 10 ml 05/19/19 22:00 05/24/19 10:00 Sodium Chloride Flush Syringe 10 Ml IV 10 ml BID MARCELLA Administration Sodium Chloride 10 ml 05/19/19 17:20 Sodium Chloride Flush Syringe 10 Ml IV PRN PRN LINE FLUSH
--- NOTE | 2019-05-24 15:51 | Progress Note ---
Assessment and Plan Cultures Blood culture 05/21/19 no growth to date Urine culture 05/22/19 no growth to date Assessment: 58 yo F PMHx obesity, obesity hypoventilation syndrome, HTN, HTN, COPD admitted with CHF decompensation, found to be febrile. 1. Acute sepsis - possible secondary to UTI. Present with fevers and tachycardia. fevers now resolved. 2. UTI - cultures negative, but repeat obtained after initiation of antibiotics. Will stop ceftriaxone and levofloxacin and start cefepime. 3. Acute CHF exacerbation 4. Morbid obesity 5. CKD vs CAROLANN - renally dose antibiotics. Recs: - continue cefepime 2g q12h. - would consider discharging on levofloxacin, but unclear baseline renal function lending itself to unclear dosing, q24h vs q48h. - follow up cultures [facility] M: [phone] O: [phone] F: [phone] Subjective Date of service: 05/24/19 Principal diagnosis: Ac. hypoxemic Resp failure; LUZ MARINA/OHS; Ac on Ch HFpEF; CAROLANN Interval history: No acute change. Afebrile, normal white count. Objective - Exam Narrative Exam: General Normal appearance, well developed, no acute distress, super obese. Eyes - PERRLA, EOM intact ENT - Moist mucous membranes, no lymphadenopathy Neck - No noticeable or palpable swelling, redness or rash around throat or on face Lymph Nodes - No lymphadenopathy Cardiovascular - RRR no m/r/g, no JVD, no carotid bruits Lungs - Clear to auscultation, no use of accessory muscles, no crackles or w heezes. Skin - No rashes, skin warm and dry, no erythematous areas Abdomen - Normal bowel sounds, abdomen soft and nontender Extremities - 2+edema, no cyanosis or clubbing Musculoskeletal - 5/5 strength, normal range of motion, no swollen or erythematous joints. Neurological Alert and oriented x 3, CN 2-12 grossly intact. - Constitutional Vitals: Vital Signs Temp Pulse Resp BP Pulse Ox 98.4 F 98 H 20 151/77 93 05/24/19 12:14 05/24/19 06:19 05/24/19 12:14 05/24/19 12:14 05/24/19 11:44 Temperature -Last 24 Hours Temperature 98.4 F Temperature 98.6 F Temperature 98.7 F Temperature 99.4 F - Labs CBC & Chem 7: 05/24/19 06:38 05/24/19 06:38 Labs: Abnormal lab results 05/24/19 05/24/19 05/24/19 Range/Units 06:38 06:38 11:15 MCH 27 L (28-32) pg RDW 17.8 H (13.2-15.2) % [place] % (Auto) 10.8 H (0.0-7.3) % Lymph # 1.1 L (1.2-5.4) K/mm3 POC ABG pCO2 64.2 H (35-45) Potassium 5.2 H (3.6-5.0) mmol/L Chloride 95.9 L (98-107) mmol/L Carbon Dioxide 38 H (22-30) mmol/L BUN 18 H (7-17) mg/dL Creatinine 1.4 H (0.7-1.2) mg/dL
[2019-05-25] MEDS: FUROSEMIDE 40 MG/4 ML INJ IV SCH (05:52)
[2019-05-25] MEDS: HEPARIN 5,000 UNIT/1 ML VIAL SUB-Q SCH ×3 (05:52→21:27)
[2019-05-25 08:10] LABS: Calcium 9.7 mg/dL (8.4-10.2)
--- NOTE | 2019-05-25 09:59 | Progress Note ---
Assessment and Plan - Patient Problems (1) Obesity hypoventilation syndrome Current Visit: Yes Status: Acute Plan to address problem: Patient is being managed for respiratory failure due to severe obesity, obstructive sleep apnea, COPD and noncompliance with home CPAP therapy. No active cardiac issues, we will follow intermittently. Subjective Date of service: 05/25/19 Principal diagnosis: Ac. hypoxemic Resp failure; LUZ MARINA/OHS; Ac on Ch HFpEF; CAROLANN Interval history: Patient is comfortable, shortness of breath has improved. No new cardiac complaints. Objective Vital Signs Temp Pulse Resp BP Pulse Ox 05/25/19 04:35 98.8 F 87 20 143/86 86 05/24/19 23:14 97 H 18 97 05/24/19 22:11 98.9 F 88 20 116/62 94 05/24/19 22:00 94 05/24/19 20:00 24 98 05/24/19 17:16 98.4 F 94 H 22 137/87 85 05/24/19 12:14 98.4 F 20 151/77 05/24/19 11:44 93 05/24/19 10:00 80 L - Physical Examination General: No Apparent Distress, Other (morbidly obese) HEENT: Positive: PERRL Neck: Positive: neck supple Cardiac: Positive: Reg Rate and Rhythm Lungs: Positive: Decreased Breath Sounds Neuro: Positive: Grossly Intact Abdomen: Positive: Soft Skin: Positive: Clear Extremities: Absent: edema - Labs and Meds Comprehensive Metabolic Panel 05/25/19 Range/Units 06:54 Sodium 144 (137-145) mmol/L Potassium 4.3 (3.6-5.0) mmol/L Chloride 95.8 L (98-107) mmol/L Carbon Dioxide 34 H (22-30) mmol/L BUN 18 H (7-17) mg/dL Creatinine 1.4 H (0.7-1.2) mg/dL Glucose 75 (65-100) mg/dL Calcium 9.7 (8.4-10.2) mg/dL - Allied health notes Allied health notes reviewed: nursing
[2019-05-25] MEDS: amLODIPine 10 MG TAB PO SCH (10:49)
[2019-05-25] MEDS: GABAPENTIN 300 MG CAP PO SCH ×2 (10:49→21:27)
[2019-05-25] MEDS: atenoloL 50 MG TAB PO SCH (10:49)
[2019-05-25] MEDS: CEFEPIME/NS 2 GM/100 ML 2 GM/100 ML BAG IV SCH ×2 (10:50→21:29)
[2019-05-25 11:14] LABS: Basophils % (Auto) 0.3 % (0.0-1.8); Eosinophils # (Auto) 0.2 K/mm3 (0.0-0.4); Eosinophils % (Auto) 3.5 % (0.0-4.3); Lymphocytes # (Auto) 1.7 K/mm3 (1.2-5.4); Lymphocytes % (Auto) 24.6 % (13.4-35.0); Mean Corpuscular HGB Conc 30 % (30-34); Mean Corpuscular Volume 88 fl (79-97); Monocytes # (Auto) 0.7 K/mm3 (0.0-0.8); Monocytes % (Auto) 11.1 % (0.0-7.3); Platelet Count 199 K/mm3 (140-440); Red Blood Count 4.29 M/mm3 (3.65-5.03)
[2019-05-25 11:15] LABS: Hematocrit 37.8 % (30.3-42.9); Hemoglobin 11.3 gm/dl (10.1-14.3)
--- NOTE | 2019-05-25 13:24 | Progress Note ---
Assessment and Plan Assessment and plan: Patient is a 58 yo woman with a history of obesity, bmi 68.3, Obesity Hypoventilation Syndrome (Noncompliant with CPAP), HTN, OA and COPD who presents with SOB over the past 1 month. Pt was found to have pulse oximetry of 76% on room air. Pt instructed to seek further care at [facility]. PT seen and evaluated in ED and found to have symptoms consistent with CHF Decompensation, Acute Hypoxemic Respiratory Failure, Acute Kidney Injury. * pCXR Impression: Cardiomegaly with mild congestive heart failure * CT chest without contrast IMPRESSION: No acute abnormality. * U/S venous doppler negative for DVT * 3v Left Knee Impression: OA * 3v Left ankle Impression: Soft tissue swelling, OA, plantar spur * V/Q scan unable to be done due to weight. * Outpatient ECHO reviewed from [facility], 10/30/2018 EF >50%, mild LVH, grade 1 diastolic dysfunction, -Acute hypoxic Respiratory failure: supplemental oxygen, pulse oximetry, NIPPV as clinically indicated, CT chest, chest x ray, reviewed, pulmonology consulted, input noted -Acute and chronic diastolic exacerbation: treat with diuretics, Echo done at Cardiology office (see above), Strict I/O, daily weight, supplemental oxygen, consulted Cardiology, input noted -CAROLANN (acute kidney injury), vasomotor nephropathy: Monitor UOP w shift, Nephrology consulted, avoid nephrotoxic agents, BMP, ivf resuscitation therapy as tolerated. -Obesity hypoventilation syndrome: supplemental oxygen, NIPPV as clinically indicated, pulse oximetry, balanced diet, increased physical activity as tolerated. Outpatient bariatric surgery. Pulmonology is following -Hypernatremia: Nephrology consulted, IVF resuscitation as tolerated, monitor bmp closely -Hyperkalemia, mild: give kayexalate, repeat level in AM -LUZ MARINA, noncompliant with CPAP: counseling done -Noncompliance with diuretics: counseling done, it she refuses, will discharge home -Extreme obesity, bmi 68: alcohol and drug counselor on weight reduction -Fevers, suspect UTI, urine ctx contaminated: ID consulted, input noted DVT prophylaxis: add sq heparin full code Disposition; continue inpatient care, she is on 4.5 liters of o2, try to wean down and arrange home O2 tomorrow History Interval history: Patient was seen and examined. Follow-up on current diagnosis of CHF. No overnight events reported to me. Patient denies any chest pain, shortness breath, nausea/vomiting or severe headaches. Imaging, nursing note, chart, labs and old chart reviewed. Discussed with patient. Hospitalist Physical - Physical exam Narrative exam: Gen: obese bmi 68, WDWN, NAD, Awake, Alert, Orientated HEENT: NCAT, EOMI, PERRL, OP Clear Neck: supple, no adenopathy, no thyromegaly, no JVD CVS/Heart: RRR, normal S1S2, pulses present bilaterally Chest/Lungs: diminished bs bilateral, Symmetrical chest expansion, good air entry bilaterally GI/Abdomen: soft, NT, large pannus good bowel sounds, no guarding or rebound /Bladder: no suprapubic tenderness, no CVA or paraspinal tenderness Extermity/Skin: bilateral BLE edema, no obvious rash MSK: FROM x 4 Neuro: CN 2-12 grossly intact, no new focal deficits Psych: calm - Constitutional Vitals: Temp Pulse Resp BP Pulse Ox 98.8 F 91 H 20 141/81 92 05/25/19 04:35 05/25/19 10:49 05/25/19 04:35 05/25/19 10:49 05/25/19 10:00 General appearance: Present: no acute distress, obese Results - Labs CBC & Chem 7: 05/25/19 06:54 05/25/19 06:54 Labs: Laboratory Last Values WBC 6.7 K/mm3 (4.5-11.0) 05/25/19 06:54 RBC 4.29 M/mm3 (3.65-5.03) 05/25/19 06:54 Hgb 11.3 gm/dl (10.1-14.3) 05/25/19 06:54 Hct 37.8 % (30.3-42.9) 05/25/19 06:54 MCV 88 fl (79-97) 05/25/19 06:54 MCH 26 pg (28-32) L 05/25/19 06:54 MCHC 30 % (30-34) 05/25/19 06:54 RDW 18.0 % (13.2-15.2) H 05/25/19 06:54 Plt Count 199 K/mm3 (140-440) 05/25/19 06:54 Lymph % (Auto) 24.6 % (13.4-35.0) 05/25/19 06:54 [place] % (Auto) 11.1 % (0.0-7.3) H 05/25/19 06:54 Eos % (Auto) 3.5 % (0.0-4.3) 05/25/19 06:54 Baso % (Auto) 0.3 % (0.0-1.8) 05/25/19 06:54 Lymph # 1.7 K/mm3 (1.2-5.4) 05/25/19 06:54 [place] # 0.7 K/mm3 (0.0-0.8) 05/25/19 06:54 Eos # 0.2 K/mm3 (0.0-0.4) 05/25/19 06:54 Baso # 0.0 K/mm3 (0.0-0.1) 05/25/19 06:54 Add Manual Diff TNR 05/22/19 06:39 Seg Neutrophils % 60.5 % (40.0-70.0) 05/25/19 06:54 Seg Neutrophils # 4.1 K/mm3 (1.8-7.7) 05/25/19 06:54 PT 13.9 Sec. (12.2-14.9) 05/19/19 15:02 INR 1.08 (0.87-1.13) 05/19/19 15:02 APTT 31.6 Sec. (24.2-36.6) 05/19/19 15:02 D-Dimer 1081.17 ng/mlDDU (0-234) H 05/21/19 20:19 POC ABG pH 7.437 (7.35-7.45) 05/24/19 11:15 POC ABG pCO2 64.2 (35-45) H 05/24/19 11:15 POC ABG pO2 74 (80-105) L 05/19/19 15:28 POC ABG HCO3 43.3 (22-26 mml/L) 05/24/19 11:15 POC ABG Total CO2 45 (23-27mmol/L) 05/24/19 11:15 POC ABG O2 Sat 69 05/24/19 11:15 POC ABG Base Excess 19 ((-2) - (+3)mmol/L) 05/24/19 11:15 FiO2 21 % 05/24/19 11:15 Sodium 144 mmol/L (137-145) 05/25/19 06:54 Potassium 4.3 mmol/L (3.6-5.0) 05/25/19 06:54 Chloride 95.8 mmol/L (98-107) L 05/25/19 06:54 Carbon Dioxide 34 mmol/L (22-30) H 05/25/19 06:54 Anion Gap 19 mmol/L 05/25/19 06:54 BUN 18 mg/dL (7-17) H 05/25/19 06:54 Creatinine 1.4 mg/dL (0.7-1.2) H 05/25/19 06:54 Estimated GFR 47 ml/min 05/25/19 06:54 BUN/Creatinine Ratio 13 % 05/25/19 06:54 Glucose 75 mg/dL (65-100) 05/25/19 06:54 POC Glucose 106 (70-105) H 05/21/19 20:03 Calcium 9.7 mg/dL (8.4-10.2) 05/25/19 06:54 Phosphorus 2.60 mg/dL (2.5-4.5) 05/25/19 06:54 Magnesium 2.30 mg/dL (1.7-2.3) 05/22/19 06:39 Total Bilirubin 0.50 mg/dL (0.1-1.2) 05/20/19 08:15 AST 28 units/L (5-40) 05/20/19 08:15 ALT 19 units/L (7-56) 05/20/19 08:15 Alkaline Phosphatase 122 units/L (35-129) 05/20/19 08:15 Total Creatine Kinase 94 units/L (30-135) 05/19/19 15:21 Troponin T < 0.010 ng/mL (0.00-0.029) 05/19/19 15:21 NT-Pro-B Natriuret Pep 2138 pg/mL (0-900) H 05/19/19 15:19 Total Protein 8.4 g/dL (6.3-8.2) H 05/20/19 08:15 Albumin 4.0 g/dL (3.9-5) 05/20/19 08:15 Albumin/Globulin Ratio 0.9 % 05/20/19 08:15 Urine Color Yellow (Yellow) 05/20/19 Unknown Urine Turbidity Slightly-cloudy (Clear) 05/20/19 Unknown Urine pH 5.0 (5.0-7.0) 05/20/19 Unknown Ur Specific [place] 1.017 (1.003-1.030) 05/20/19 Unknown Urine Protein 30 mg/dl mg/dL (Negative) 05/20/19 Unknown Urine Glucose (UA) Neg mg/dL (Negative) 05/20/19 Unknown Urine Ketones Neg mg/dL (Negative) 05/20/19 Unknown Urine Blood Lg (Negative) 05/20/19 Unknown Urine Nitrite Neg (Negative) 05/20/19 Unknown Urine Bilirubin Neg (Negative) 05/20/19 Unknown Urine Urobilinogen < 2.0 mg/dL (<2.0) 05/20/19 Unknown Ur Leukocyte Esterase Neg (Negative) 05/20/19 Unknown Urine WBC (Auto) 16.0 /HPF (0.0-6.0) H 05/20/19 Unknown Urine RBC (Auto) 97.0 /HPF (0.0-6.0) 05/20/19 Unknown U Epithel Cells (Auto) 2.0 /HPF (0-13.0) 05/20/19 Unknown Urine Mucus Few /HPF 05/20/19 Unknown Urine Eosinophils None seen (None Seen) 05/20/19 Unknown Urine Creatinine 195.1 mg/dL (0.1-20.0) H 05/20/19 Unknown Urine Sodium 95 mmol/L 05/20/19 Unknown Active Medications - Current Medications Current Medications: Generic Name Dose Route Start Last Admin Trade Name Alejandroq PRN Reason Stop Dose Admin Acetaminophen 650 mg 05/19/19 17:20 05/23/19 18:11 Tylenol PO 650 mg Q4H PRN Administration Pain MILD(1-3)/Fever >100.5/CHAVEZ Albuterol 2.5 mg 05/19/19 17:20 Proventil IH Q4HRT PRN Shortness Of Breath Amlodipine Besylate 10 mg 05/20/19 16:00 05/25/19 10:49 Amlodipine PO 10 mg QDAY MARCELLA Administration Atenolol 75 mg 05/24/19 10:00 05/25/19 10:49 Tenormin PO 75 mg QDAY MARCELLA Administration Furosemide 40 mg 05/21/19 06:00 05/25/19 05:52 Lasix IV 40 mg DAILY@0600 MARCELLA Administration Gabapentin 300 mg 05/19/19 22:00 05/25/19 10:49 Gabapentin PO 300 mg BID MARCELLA Administration Heparin Sodium (Porcine) 5,000 unit 05/21/19 14:45 05/25/19 05:52 Heparin SUB-Q 5,000 unit Q8HR MARCELLA Administration Cefepime HCl 2 gm in 100 mls @ 200 mls/hr 05/23/19 13:00 05/25/19 10:50 Cefepime/Ns 2 Gm/100 Ml IV 200 mls/hr Q12HR MARCELLA Administration Protocol Ondansetron HCl 4 mg 05/19/19 17:20 Zofran IV Q8H PRN Nausea And Vomiting Sodium Chloride 10 ml 05/19/19 22:00 05/25/19 10:50 Sodium Chloride Flush Syringe 10 Ml IV 10 ml BID MARCELLA Administration Sodium Chloride 10 ml 05/19/19 17:20 Sodium Chloride Flush Syringe 10 Ml IV PRN PRN LINE FLUSH
--- NOTE | 2019-05-25 14:22 | Progress Note ---
Assessment and Plan Acute hypoxic Respiratory failure LUZ MARINA, noncompliant with CPAP Acute and chronic diastolic exacerbation CAROLANN (acute kidney injury) Obesity hypoventilation syndrome Hyperkalemia Noncompliance with diuretics Extreme obesity, bmi 68 Pyrexia - home oxygen evaluation - continue supplemental oxygen as needed to keep O2 sat's > 90% - continue bronchodilators with pulmonary hygiene per RT - continue gentle diuresis - weight loss counseled - PT/OT as tolerated - mobility protocols for pressure ulcer prophylaxis - GI & VTE prophylaxis - Flu & pneumovax addressed per protocol - continue other care per attending / other consultants ... re-evaluate in am & prn Subjective Date of service: 05/25/19 Principal diagnosis: Ac. hypoxemic Resp failure; LUZ MARINA/OHS; Ac on Ch HFpEF; CAROLANN Interval history: Patient is seen today for: Acute hypoxemic Respiratory failure; LUZ MARINA/OHS; Acute and chronic diastolic exacerbation; CAROLANN (acute kidney injury); Hyperkalemia; Extreme obesity, bmi 68; Pyrexia Seen and examined at bedside; 24hour events reviewed; nursing and respiratory care staff consulted; no adverse overnight events reported to me; Objective Vital Signs - 12hr 05/25/19 05/25/19 05/25/19 04:35 10:00 10:47 Temperature 98.8 F Pulse Rate 87 Respiratory 20 Rate Blood Pressure 143/86 141/81 O2 Sat by Pulse 86 92 Oximetry 05/25/19 10:49 Temperature Pulse Rate 91 H Respiratory Rate Blood Pressure 141/81 O2 Sat by Pulse Oximetry Constitutional: no acute distress, alert, other (middle aged morbidly obese AAF, normocephalic with normal respiratory effort at rest) Eyes: non-icteric ENT: oropharynx moist Neck: supple, no lymphadenopathy Effort: mildly labored Ascultation: Bilateral: clear, diminished breath sounds, rales (Few rales.) Percussion: Bilateral: not dull Cardiovascular: regular rate and rhythm Gastrointestinal: normoactive bowel sounds, soft, non-tender, other (protuberant) Integumentary: rash (stasis dermatitis to shins) Extremities: no cyanosis, no edema, pulses normal, no ischemia or petechiae, other (Trace edema.) Neurologic: normal mental status, non-focal exam, pupils equal and round, CN II- XII normal Psychiatric: mood appropriate, affect normal CBC and BMP: 05/25/19 06:54 05/25/19 06:54 ABG, PT/INR, D-dimer: ABG POC ABG pH 7.437 (7.35-7.45) 05/24/19 11:15 POC ABG pCO2 64.2 (35-45) H 05/24/19 11:15 POC ABG HCO3 43.3 (22-26 mml/L) 05/24/19 11:15 POC ABG Total CO2 45 (23-27mmol/L) 05/24/19 11:15 POC ABG O2 Sat 69 05/24/19 11:15 PT/INR, D-dimer PT 13.9 Sec. (12.2-14.9) 05/19/19 15:02 INR 1.08 (0.87-1.13) 05/19/19 15:02 D-Dimer 1081.17 ng/mlDDU (0-234) H 05/21/19 20:19 Abnormal lab findings: Abnormal Labs 05/19/19 05/19/19 05/19/19 15:02 15:02 15:19 MCH 27 L RDW 18.2 H [place] % (Auto) Lymph # [place] # Seg Neutrophils % D-Dimer POC ABG pH POC ABG pCO2 POC ABG pO2 Sodium 146 H Potassium Chloride Carbon Dioxide BUN 18 H Creatinine 1.5 H POC Glucose NT-Pro-B Natriuret Pep 2138 H Total Protein 8.4 H Albumin 3.5 L Urine WBC (Auto) Urine Creatinine 05/19/19 05/20/19 05/20/19 15:28 08:15 08:15 MCH 27 L RDW 18.0 H [place] % (Auto) 8.0 H Lymph # [place] # Seg Neutrophils % 71.1 H D-Dimer POC ABG pH 7.331 L POC ABG pCO2 64.8 H POC ABG pO2 74 L Sodium 147 H Potassium Chloride Carbon Dioxide 32 H BUN 19 H Creatinine 1.7 H POC Glucose NT-Pro-B Natriuret Pep Total Protein 8.4 H Albumin Urine WBC (Auto) Urine Creatinine 05/20/19 05/20/19 05/21/19 Unknown Unknown 05:48 MCH 27 L RDW 18.2 H [place] % (Auto) 10.8 H Lymph # [place] # 0.9 H Seg Neutrophils % D-Dimer POC ABG pH POC ABG pCO2 POC ABG pO2 Sodium Potassium Chloride Carbon Dioxide BUN Creatinine POC Glucose NT-Pro-B Natriuret Pep Total Protein Albumin Urine WBC (Auto) 16.0 H Urine Creatinine 195.1 H 05/21/19 05/21/19 05/21/19 05:48 20:03 20:19 MCH RDW [place] % (Auto) Lymph # [place] # Seg Neutrophils % D-Dimer 1081.17 H POC ABG pH POC ABG pCO2 POC ABG pO2 Sodium Potassium 5.2 H Chloride Carbon Dioxide BUN Creatinine 1.6 H POC Glucose 106 H NT-Pro-B Natriuret Pep Total Protein Albumin Urine WBC (Auto) Urine Creatinine 05/22/19 05/22/19 05/23/19 06:39 08:39 06:36 MCH 27 L 27 L RDW 18.1 H 18.1 H [place] % (Auto) 13.8 H 12.3 H Lymph # [place] # 1.2 H 0.9 H Seg Neutrophils % D-Dimer POC ABG pH POC ABG pCO2 POC ABG pO2 Sodium Potassium Chloride Carbon Dioxide 35 H BUN Creatinine 1.6 H POC Glucose NT-Pro-B Natriuret Pep Total Protein Albumin Urine WBC (Auto) Urine Creatinine 05/23/19 05/24/19 05/24/19 06:36 06:38 06:38 MCH 27 L RDW 17.8 H [place] % (Auto) 10.8 H Lymph # 1.1 L [place] # Seg Neutrophils % D-Dimer POC ABG pH POC ABG pCO2 POC ABG pO2 Sodium 146 H Potassium 5.2 H Chloride 97.9 L 95.9 L Carbon Dioxide 35 H 38 H BUN 18 H Creatinine 1.6 H 1.4 H POC Glucose NT-Pro-B Natriuret Pep Total Protein Albumin Urine WBC (Auto) Urine Creatinine 05/24/19 05/25/19 05/25/19 11:15 06:54 06:54 MCH 26 L RDW 18.0 H [place] % (Auto) 11.1 H Lymph # [place] # Seg Neutrophils % D-Dimer POC ABG pH POC ABG pCO2 64.2 H POC ABG pO2 Sodium Potassium Chloride 95.8 L Carbon Dioxide 34 H BUN 18 H Creatinine 1.4 H POC Glucose NT-Pro-B Natriuret Pep Total Protein Albumin Urine WBC (Auto) Urine Creatinine Allied health notes reviewed: nursing
[2019-05-26] MEDS: FUROSEMIDE 40 MG/4 ML INJ IV SCH (06:20)
[2019-05-26] MEDS: HEPARIN 5,000 UNIT/1 ML VIAL SUB-Q SCH ×3 (06:20→21:43)
[2019-05-26 07:29] LABS: Basophils % (Auto) 0.7 % (0.0-1.8); Eosinophils # (Auto) 0.1 K/mm3 (0.0-0.4); Eosinophils % (Auto) 2.1 % (0.0-4.3); Lymphocytes % (Auto) 13.9 % (13.4-35.0); Mean Corpuscular HGB Conc 30 % (30-34); Mean Corpuscular Volume 90 fl (79-97); Monocytes # (Auto) 0.7 K/mm3 (0.0-0.8); Monocytes % (Auto) 10.4 % (0.0-7.3); Red Blood Count 4.28 M/mm3 (3.65-5.03); Red Cell Distribution Width 18.5 % (13.2-15.2)
[2019-05-26 07:41] LABS: Hematocrit 38.4 % (30.3-42.9); Hemoglobin 11.4 gm/dl (10.1-14.3)
[2019-05-26 07:53] LABS: Calcium 9.9 mg/dL (8.4-10.2)
[2019-05-26 08:28] LABS: Platelet Count 194 K/mm3 (140-440)
[2019-05-26] MEDS ORDERED: SODIUM POLYSTYRENE 15 GM/60 ML ORAL LIQD PO ONE (08:30)
[2019-05-26] MEDS: CEFEPIME/NS 2 GM/100 ML 2 GM/100 ML BAG IV SCH ×2 (09:25→21:44)
[2019-05-26] MEDS: GABAPENTIN 300 MG CAP PO SCH ×2 (09:29→21:43)
[2019-05-26] MEDS: atenoloL 50 MG TAB PO SCH (09:38)
[2019-05-26] MEDS: amLODIPine 10 MG TAB PO SCH (09:39)
--- NOTE | 2019-05-26 11:46 | Progress Note ---
Assessment and Plan Assessment and plan: Patient is a 58 yo woman with a history of obesity, bmi 68.3, Obesity Hypoventilation Syndrome (Noncompliant with CPAP), HTN, OA and COPD who presents with SOB over the past 1 month. Pt was found to have pulse oximetry of 76% on room air. Pt instructed to seek further care at [facility]. PT seen and evaluated in ED and found to have symptoms consistent with CHF Decompensation, Acute Hypoxemic Respiratory Failure, Acute Kidney Injury. * pCXR Impression: Cardiomegaly with mild congestive heart failure * CT chest without contrast IMPRESSION: No acute abnormality. * U/S venous doppler negative for DVT * 3v Left Knee Impression: OA * 3v Left ankle Impression: Soft tissue swelling, OA, plantar spur * V/Q scan unable to be done due to weight. * Outpatient ECHO reviewed from [facility], 10/30/2018 EF >50%, mild LVH, grade 1 diastolic dysfunction, -Acute hypoxic Respiratory failure: supplemental oxygen, pulse oximetry, NIPPV as clinically indicated, CT chest, chest x ray, reviewed, pulmonology consulted, input noted -Acute and chronic diastolic exacerbation: treat with diuretics, Echo done at Cardiology office (see above), Strict I/O, daily weight, supplemental oxygen, consulted Cardiology, input noted -CAROLANN (acute kidney injury), vasomotor nephropathy: Monitor UOP w shift, Nephrology consulted, avoid nephrotoxic agents, BMP, ivf resuscitation therapy as tolerated. -Obesity hypoventilation syndrome: supplemental oxygen, NIPPV as clinically indicated, pulse oximetry, balanced diet, increased physical activity as tolerated. Outpatient bariatric surgery. Pulmonology is following -Hypernatremia: Nephrology consulted, IVF resuscitation as tolerated, monitor bmp closely -Hyperkalemia, mild: give kayexalate, repeat level in AM -LUZ MARINA, noncompliant with CPAP: counseling done -Noncompliance with diuretics: counseling done, it she refuses, will discharge home -Extreme obesity, bmi 68: food counselor on weight reduction -Fevers, suspect UTI, urine ctx contaminated: ID consulted, input noted DVT prophylaxis: add sq heparin full code Disposition; continue inpatient care, she is on 3 liters now, arrange home o2 setup, potassium level elevated again, will give kayexalate and recheck level in AM and if normal then d/c arabella History Interval history: Patient was seen and examined. Follow-up on current diagnosis of CHF. No overnight events reported to me. Patient denies any chest pain, shortness zaira th, nausea/vomiting or severe headaches. Imaging, nursing note, chart, labs and old chart reviewed. Discussed with patient. Hospitalist Physical - Physical exam Narrative exam: Gen: obese bmi 68, WDWN, NAD, Awake, Alert, Orientated HEENT: NCAT, EOMI, PERRL, OP Clear Neck: supple, no adenopathy, no thyromegaly, no JVD CVS/Heart: RRR, normal S1S2, pulses present bilaterally Chest/Lungs: diminished bs bilateral, Symmetrical chest expansion, good air entry bilaterally GI/Abdomen: soft, NT, large pannus good bowel sounds, no guarding or rebound /Bladder: no suprapubic tenderness, no CVA or paraspinal tenderness Extermity/Skin: bilateral BLE edema, no obvious rash MSK: FROM x 4 Neuro: CN 2-12 grossly intact, no new focal deficits Psych: calm - Constitutional Vitals: Temp Pulse Resp BP Pulse Ox 98.7 F 89 20 107/69 99 05/26/19 04:35 05/26/19 09:39 05/26/19 04:35 05/26/19 09:39 05/26/19 07:53 General appearance: Present: no acute distress, obese Results - Labs CBC & Chem 7: 05/26/19 06:58 05/26/19 06:58 Labs: Laboratory Last Values WBC 7.0 K/mm3 (4.5-11.0) 05/26/19 06:58 RBC 4.28 M/mm3 (3.65-5.03) 05/26/19 06:58 Hgb 11.4 gm/dl (10.1-14.3) 05/26/19 06:58 Hct 38.4 % (30.3-42.9) 05/26/19 06:58 MCV 90 fl (79-97) 05/26/19 06:58 MCH 27 pg (28-32) L 05/26/19 06:58 MCHC 30 % (30-34) 05/26/19 06:58 RDW 18.5 % (13.2-15.2) H 05/26/19 06:58 Plt Count 194 K/mm3 (140-440) 05/26/19 06:58 Lymph % (Auto) 13.9 % (13.4-35.0) 05/26/19 06:58 [place] % (Auto) 10.4 % (0.0-7.3) H 05/26/19 06:58 Eos % (Auto) 2.1 % (0.0-4.3) 05/26/19 06:58 Baso % (Auto) 0.7 % (0.0-1.8) 05/26/19 06:58 Lymph # 1.0 K/mm3 (1.2-5.4) L 05/26/19 06:58 [place] # 0.7 K/mm3 (0.0-0.8) 05/26/19 06:58 Eos # 0.1 K/mm3 (0.0-0.4) 05/26/19 06:58 Baso # 0.0 K/mm3 (0.0-0.1) 05/26/19 06:58 Add Manual Diff TNR 05/22/19 06:39 Seg Neutrophils % 72.9 % (40.0-70.0) H 05/26/19 06:58 Seg Neutrophils # 5.1 K/mm3 (1.8-7.7) 05/26/19 06:58 PT 13.9 Sec. (12.2-14.9) 05/19/19 15:02 INR 1.08 (0.87-1.13) 05/19/19 15:02 APTT 31.6 Sec. (24.2-36.6) 05/19/19 15:02 D-Dimer 1081.17 ng/mlDDU (0-234) H 05/21/19 20:19 POC ABG pH 7.437 (7.35-7.45) 05/24/19 11:15 POC ABG pCO2 64.2 (35-45) H 05/24/19 11:15 POC ABG pO2 74 (80-105) L 05/19/19 15:28 POC ABG HCO3 43.3 (22-26 mml/L) 05/24/19 11:15 POC ABG Total CO2 45 (23-27mmol/L) 05/24/19 11:15 POC ABG O2 Sat 69 05/24/19 11:15 POC ABG Base Excess 19 ((-2) - (+3)mmol/L) 05/24/19 11:15 FiO2 21 % 05/24/19 11:15 Sodium 143 mmol/L (137-145) 05/26/19 06:58 Potassium 5.3 mmol/L (3.6-5.0) H D 05/26/19 06:58 Chloride 94.4 mmol/L (98-107) L 05/26/19 06:58 Carbon Dioxide 36 mmol/L (22-30) H 05/26/19 06:58 Anion Gap 18 mmol/L 05/26/19 06:58 BUN 21 mg/dL (7-17) H 05/26/19 06:58 Creatinine 1.3 mg/dL (0.7-1.2) H 05/26/19 06:58 Estimated GFR 51 ml/min 05/26/19 06:58 BUN/Creatinine Ratio 16 % 05/26/19 06:58 Glucose 81 mg/dL (65-100) 05/26/19 06:58 POC Glucose 106 (70-105) H 05/21/19 20:03 Calcium 9.9 mg/dL (8.4-10.2) 05/26/19 06:58 Phosphorus 2.60 mg/dL (2.5-4.5) 05/25/19 06:54 Magnesium 2.30 mg/dL (1.7-2.3) 05/22/19 06:39 Total Bilirubin 0.50 mg/dL (0.1-1.2) 05/20/19 08:15 AST 28 units/L (5-40) 05/20/19 08:15 ALT 19 units/L (7-56) 05/20/19 08:15 Alkaline Phosphatase 122 units/L (35-129) 05/20/19 08:15 Total Creatine Kinase 94 units/L (30-135) 05/19/19 15:21 Troponin T < 0.010 ng/mL (0.00-0.029) 05/19/19 15:21 NT-Pro-B Natriuret Pep 2138 pg/mL (0-900) H 05/19/19 15:19 Total Protein 8.4 g/dL (6.3-8.2) H 05/20/19 08:15 Albumin 4.0 g/dL (3.9-5) 05/20/19 08:15 Albumin/Globulin Ratio 0.9 % 05/20/19 08:15 Urine Color Yellow (Yellow) 05/20/19 Unknown Urine Turbidity Slightly-cloudy (Clear) 05/20/19 Unknown Urine pH 5.0 (5.0-7.0) 05/20/19 Unknown Ur Specific [place] 1.017 (1.003-1.030) 05/20/19 Unknown Urine Protein 30 mg/dl mg/dL (Negative) 05/20/19 Unknown Urine Glucose (UA) Neg mg/dL (Negative) 05/20/19 Unknown Urine Ketones Neg mg/dL (Negative) 05/20/19 Unknown Urine Blood Lg (Negative) 05/20/19 Unknown Urine Nitrite Neg (Negative) 05/20/19 Unknown Urine Bilirubin Neg (Negative) 05/20/19 Unknown Urine Urobilinogen < 2.0 mg/dL (<2.0) 05/20/19 Unknown Ur Leukocyte Esterase Neg (Negative) 05/20/19 Unknown Urine WBC (Auto) 16.0 /HPF (0.0-6.0) H 05/20/19 Unknown Urine RBC (Auto) 97.0 /HPF (0.0-6.0) 05/20/19 Unknown U Epithel Cells (Auto) 2.0 /HPF (0-13.0) 05/20/19 Unknown Urine Mucus Few /HPF 05/20/19 Unknown Urine Eosinophils None seen (None Seen) 05/20/19 Unknown Urine Creatinine 195.1 mg/dL (0.1-20.0) H 05/20/19 Unknown Urine Sodium 95 mmol/L 05/20/19 Unknown Active Medications - Current Medications Current Medications: Generic Name Dose Route Start Last Admin Trade Name Freq PRN Reason Stop Dose Admin Acetaminophen 650 mg 05/19/19 17:20 05/23/19 18:11 Tylenol PO 650 mg Q4H PRN Administration Pain MILD(1-3)/Fever >100.5/CHAVEZ Albuterol 2.5 mg 05/19/19 17:20 Proventil IH Q4HRT PRN Shortness Of Breath Amlodipine Besylate 10 mg 05/20/19 16:00 05/26/19 09:39 Amlodipine PO Not Given QDAY MARCELLA Atenolol 75 mg 05/24/19 10:00 05/26/19 09:38 Tenormin PO 75 mg QDAY MARCELLA Administration Furosemide 40 mg 05/21/19 06:00 05/26/19 06:20 Lasix IV 40 mg DAILY@0600 MARCELLA Administration Gabapentin 300 mg 05/19/19 22:00 05/26/19 09:29 Gabapentin PO 300 mg BID MARCELLA Administration Heparin Sodium (Porcine) 5,000 unit 05/21/19 14:45 05/26/19 06:20 Heparin SUB-Q 5,000 unit Q8HR MARCELLA Administration Cefepime HCl 2 gm in 100 mls @ 200 mls/hr 05/23/19 13:00 05/26/19 09:25 Cefepime/Ns 2 Gm/100 Ml IV 200 mls/hr Q12HR MARCELLA Administration Protocol Ondansetron HCl 4 mg 05/19/19 17:20 Zofran IV Q8H PRN Nausea And Vomiting Sodium Chloride 10 ml 05/19/19 22:00 05/26/19 09:39 Sodium Chloride Flush Syringe 10 Ml IV 10 ml BID MARCELLA Administration Sodium Chloride 10 ml 05/19/19 17:20 05/26/19 09:38 Sodium Chloride Flush Syringe 10 Ml IV 10 ml PRN PRN Administration LINE FLUSH Nutrition/Malnutrition Assess - Dietary Evaluation Nutrition/Malnutrition Findings: Nutrition Notes Start: 05/26/19 10:20 Freq: Status: Active Protocol: Document 05/26/19 10:20 MAURICE (Rec: 05/26/19 10:29 MAURICE [email or web address]) Nutrition Notes Need for Assessment generated from: LOS Initial or Follow up Brief Note Current Diagnosis Acute Kidney Injury,Heart Failure,Respiratory Failure Current Diet Cardiac Labs/Tests K 5.3 BUN 21 Cr 1.3 Pertinent Medications Lasix Height 5 ft 6 in Weight 188.2 kg [place] Body Weight (kg) 59.09 BMI 66.9 Weight Status Morbidly Obese Subjective/Other Information Pt screened for LOS. She is currently consuming 61% of meals. Percent of energy/protein needs met: 99% energy 51% pro Minimum of two criteria No Is patient on ventilator? No Is Patient Ambulatory and/or Out of Bed Yes REE-(Randolph-St. Jeor-ambulatory/OOB) [ 3222.375 NUTR.[id number]] Calculation Used for Recommendations 22-25 kcal/kg IBW Additional Notes Energy needs 9743-3614 kcal/ day Pro needs 0.8-1g/kg adjBW: 99- 124g/day Fluid needs 1-1.5L/day Nutrition Intervention Follow-Up By: 05/30/19 Additional Comments F/U: intakes, need for ONS for additional pro
--- NOTE | 2019-05-26 12:47 | Progress Note ---
Assessment and Plan Cultures: Blood culture 05/21/19 no growth to date Urine culture 05/22/19 no growth to date Assessment: 58 yo F PMHx obesity, obesity hypoventilation syndrome, HTN, HTN, COPD admitted with CHF decompensation, found to be febrile. 1. Acute sepsis - possible secondary to UTI. Present with fevers and ta chycardia. Fevers now resolved. 2. UTI - cultures negative, but repeat obtained after initiation of antibiotics. Has been receiving IV abx 3. Acute CHF exacerbation, obesity hypoventilation 4. Morbid obesity 5. CKD vs CAROLANN - renally dose antibiotics. Creatinine gradually improving. Recs: - last day of Cefepime today. No abx needed upon discharge Ashok Plascencia MD, FACP [facility] ([facility] M: [phone] O: [phone] F: [phone] Subjective Date of service: 05/26/19 Principal diagnosis: Ac. hypoxemic Resp failure; LUZ MARINA/OHS; Ac on Ch HFpEF; CAROLANN Interval history: No fever. Sitting in a chair, denies any complaints. Does not appear to be in any distress. Objective - Exam Narrative Exam: Physical Exam: Constitutional: Alert, cooperative. No acute distress. Morbid obesity Head, Ears, Nose: Normocephalic, atraumatic. External ears, nose normal Eyes: Conjunctivae/corneas clear. No icterus. No ptosis. Neck: Supple, no meningeal signs Cardiovascular: S1, S2 normal. Respiratory: AE reduced bilaterally GI: obese. Soft, non-tender; bowel sounds normal. No peritoneal signs Musculoskeletal: No pedal edema, no cyanosis. Obese Skin: No rash or abscess Hem/Lymphatic: No palpable cervical or supraclavicular nodes. No lymphangitis Psych: Mood ok. Affect normal Neurological: Awake, alert, oriented. No gross abnormality - Constitutional Vitals: Vital Signs Temp Pulse Resp BP Pulse Ox 98.7 F 89 20 107/69 99 05/26/19 04:35 05/26/19 09:39 05/26/19 04:35 05/26/19 09:39 05/26/19 07:53 Temperature -Last 24 Hours Temperature 98.7 F Temperature 98.8 F Temperature 98.4 F - Labs CBC & Chem 7: 05/26/19 06:58 05/26/19 06:58 Labs: Abnormal lab results 05/26/19 05/26/19 Range/Units 06:58 06:58 MCH 27 L (28-32) pg RDW 18.5 H (13.2-15.2) % [place] % (Auto) 10.4 H (0.0-7.3) % Lymph # 1.0 L (1.2-5.4) K/mm3 Seg Neutrophils % 72.9 H (40.0-70.0) % Potassium 5.3 H D (3.6-5.0) mmol/L Chloride 94.4 L (98-107) mmol/L Carbon Dioxide 36 H (22-30) mmol/L BUN 21 H (7-17) mg/dL Creatinine 1.3 H (0.7-1.2) mg/dL
--- NOTE | 2019-05-26 13:55 | Progress Note ---
Assessment and Plan Acute hypoxic respiratory failure Morbid obesity Obstructive sleep apnea poor compliance with her CPAP at home COPD Chronic hypertension An outpatient echocardiogram done six-months ago showed normal left ventricular systolic function, ejection fraction greater than 50%. Conservative cardiac management. Subjective Date of service: 05/26/19 Principal diagnosis: Ac. hypoxemic Resp failure; LUZ MARINA/OHS; Ac on Ch HFpEF; CAROLANN Interval history: Patient reports her breathing is better. No cardiac complaints. Objective Vital Signs Temp Pulse Resp BP Pulse Ox 05/26/19 12:50 100.0 F H 93 H 24 153/74 96 05/26/19 09:39 89 107/69 05/26/19 09:38 89 107/69 05/26/19 07:53 99 05/26/19 04:35 98.7 F 20 128/76 05/26/19 01:35 88 18 96 05/25/19 21:37 98.8 F 84 20 144/73 95 05/25/19 20:48 97 05/25/19 20:00 22 97 05/25/19 16:58 98.4 F 83 20 126/68 100 - Physical Examination General: No Apparent Distress, Other (morbidly obese) HEENT: Positive: PERRL Neck: Positive: trachea midline Cardiac: Positive: Reg Rate and Rhythm Lungs: Positive: Decreased Breath Sounds Neuro: Positive: Grossly Intact Extremities: Absent: edema - Labs and Meds CBC 05/26/19 Range/Units 06:58 WBC 7.0 (4.5-11.0) K/mm3 RBC 4.28 (3.65-5.03) M/mm3 Hgb 11.4 (10.1-14.3) gm/dl Hct 38.4 (30.3-42.9) % Plt Count 194 (140-440) K/mm3 Lymph # 1.0 L (1.2-5.4) K/mm3 [place] # 0.7 (0.0-0.8) K/mm3 Eos # 0.1 (0.0-0.4) K/mm3 Baso # 0.0 (0.0-0.1) K/mm3 Comprehensive Metabolic Panel 05/26/19 Range/Units 06:58 Sodium 143 (137-145) mmol/L Potassium 5.3 H D (3.6-5.0) mmol/L Chloride 94.4 L (98-107) mmol/L Carbon Dioxide 36 H (22-30) mmol/L BUN 21 H (7-17) mg/dL Creatinine 1.3 H (0.7-1.2) mg/dL Glucose 81 (65-100) mg/dL Calcium 9.9 (8.4-10.2) mg/dL - Allied health notes Allied health notes reviewed: nursing
--- NOTE | 2019-05-26 18:44 | Progress Note ---
Assessment and Plan Patient is awake and alert. Pt is on 3 liters of O2. Saturation is 93%. Patient had venous doppler study of the legs and reported no DVT. Patient is unable to get V/Q scan. D-Dimer is 1081. Consider Angio CT of the chest. Patient running low grade temp. No leukocytosis. - Patient Problems (1) CHF (congestive heart failure) Current Visit: Yes Status: Acute Qualifiers: Heart failure type: systolic Heart failure chronicity: acute Qualified Code(s): I50.21 - Acute systolic (congestive) heart failure Plan to address problem: Management as per cardiology. (2) Respiratory failure Current Visit: Yes Status: Acute Qualifiers: Chronicity: acute Respiratory failure complication: hypoxia Qualified Code(s): J96.01 - Acute respiratory failure with hypoxia Plan to address problem: BIPAP 16/6, rate 16, FIO2 30%. Albuterol/atrovent aerosol treatments q 6 hours. Recommend DVT and GI Prophylaxis. (3) Morbid obesity with BMI of 60.0-69.9, adult Current Visit: Yes Status: Acute Plan to address problem: Counselled to loose weight. (4) Sleep apnea in adult Current Visit: Yes Status: Acute Plan to address problem: BIPAP 16.6, rate 16, FIO2 30% (5) Obesity hypoventilation syndrome Current Visit: Yes Status: Acute Plan to address problem: BIPAP 16/6, rate 16, FIO2 30%. Subjective Date of service: 05/26/19 Principal diagnosis: Ac. hypoxemic Resp failure; LUZ MARINA/OHS; Ac on Ch HFpEF; CAROLANN Interval history: Patient is sleeping. Pt is on 3 liters of O2. Saturation is 93%. Patient had ve nous doppler study of the legs and reported no DVT. Patient is unable to get V/Q scan. D-Dimer is 1081. Consider Angio CT of the chest. Patient running low grade temp. No leukocytosis. Objective Vital Signs - 12hr 05/26/19 05/26/19 05/26/19 07:53 09:38 09:39 Temperature Pulse Rate 89 89 Respiratory Rate Blood Pressure 107/69 107/69 O2 Sat by Pulse 99 Oximetry 05/26/19 05/26/19 12:50 17:45 Temperature 100.0 F H 98.3 F Pulse Rate 93 H 108 H Respiratory 24 20 Rate Blood Pressure 153/74 119/63 O2 Sat by Pulse 96 93 Oximetry Constitutional: no acute distress, asleep, other (middle aged morbidly obese AAF, normocephalic with normal respiratory effort at rest) Eyes: non-icteric ENT: oropharynx moist Neck: supple, no lymphadenopathy Effort: mildly labored Ascultation: Bilateral: diminished breath sounds, rales (Few rales.) Percussion: Bilateral: not dull Cardiovascular: regular rate and rhythm Gastrointestinal: normoactive bowel sounds, soft, non-tender, other ( protuberant) Integumentary: rash (stasis dermatitis to shins) Extremities: no cyanosis, no edema, pulses normal, no ischemia or petechiae, other (Trace edema.) Neurologic: normal mental status, non-focal exam, pupils equal and round, CN II- XII normal Psychiatric: mood appropriate, affect normal CBC and BMP: 05/26/19 06:58 05/26/19 06:58 ABG, PT/INR, D-dimer: ABG POC ABG pH 7.437 (7.35-7.45) 05/24/19 11:15 POC ABG pCO2 64.2 (35-45) H 05/24/19 11:15 POC ABG HCO3 43.3 (22-26 mml/L) 05/24/19 11:15 POC ABG Total CO2 45 (23-27mmol/L) 05/24/19 11:15 POC ABG O2 Sat 69 05/24/19 11:15 PT/INR, D-dimer PT 13.9 Sec. (12.2-14.9) 05/19/19 15:02 INR 1.08 (0.87-1.13) 05/19/19 15:02 D-Dimer 1081.17 ng/mlDDU (0-234) H 05/21/19 20:19 Abnormal lab findings: Abnormal Labs 05/19/19 05/19/19 05/19/19 15:02 15:02 15:19 MCH 27 L RDW 18.2 H [place] % (Auto) Lymph # [place] # Seg Neutrophils % D-Dimer POC ABG pH POC ABG pCO2 POC ABG pO2 Sodium 146 H Potassium Chloride Carbon Dioxide BUN 18 H Creatinine 1.5 H POC Glucose NT-Pro-B Natriuret Pep 2138 H Total Protein 8.4 H Albumin 3.5 L Urine WBC (Auto) Urine Creatinine 05/19/19 05/20/19 05/20/19 15:28 08:15 08:15 MCH 27 L RDW 18.0 H [place] % (Auto) 8.0 H Lymph # [place] # Seg Neutrophils % 71.1 H D-Dimer POC ABG pH 7.331 L POC ABG pCO2 64.8 H POC ABG pO2 74 L Sodium 147 H Potassium Chloride Carbon Dioxide 32 H BUN 19 H Creatinine 1.7 H POC Glucose NT-Pro-B Natriuret Pep Total Protein 8.4 H Albumin Urine WBC (Auto) Urine Creatinine 05/20/19 05/20/19 05/21/19 Unknown Unknown 05:48 MCH 27 L RDW 18.2 H [place] % (Auto) 10.8 H Lymph # [place] # 0.9 H Seg Neutrophils % D-Dimer POC ABG pH POC ABG pCO2 POC ABG pO2 Sodium Potassium Chloride Carbon Dioxide BUN Creatinine POC Glucose NT-Pro-B Natriuret Pep Total Protein Albumin Urine WBC (Auto) 16.0 H Urine Creatinine 195.1 H 05/21/19 05/21/19 05/21/19 05:48 20:03 20:19 MCH RDW [place] % (Auto) Lymph # [place] # Seg Neutrophils % D-Dimer 1081.17 H POC ABG pH POC ABG pCO2 POC ABG pO2 Sodium Potassium 5.2 H Chloride Carbon Dioxide BUN Creatinine 1.6 H POC Glucose 106 H NT-Pro-B Natriuret Pep Total Protein Albumin Urine WBC (Auto) Urine Creatinine 05/22/19 05/22/19 05/23/19 06:39 08:39 06:36 MCH 27 L 27 L RDW 18.1 H 18.1 H [place] % (Auto) 13.8 H 12.3 H Lymph # [place] # 1.2 H 0.9 H Seg Neutrophils % D-Dimer POC ABG pH POC ABG pCO2 POC ABG pO2 Sodium Potassium Chloride Carbon Dioxide 35 H BUN Creatinine 1.6 H POC Glucose NT-Pro-B Natriuret Pep Total Protein Albumin Urine WBC (Auto) Urine Creatinine 05/23/19 05/24/19 05/24/19 06:36 06:38 06:38 MCH 27 L RDW 17.8 H [place] % (Auto) 10.8 H Lymph # 1.1 L [place] # Seg Neutrophils % D-Dimer POC ABG pH POC ABG pCO2 POC ABG pO2 Sodium 146 H Potassium 5.2 H Chloride 97.9 L 95.9 L Carbon Dioxide 35 H 38 H BUN 18 H Creatinine 1.6 H 1.4 H POC Glucose NT-Pro-B Natriuret Pep Total Protein Albumin Urine WBC (Auto) Urine Creatinine 05/24/19 05/25/19 05/25/19 11:15 06:54 06:54 MCH 26 L RDW 18.0 H [place] % (Auto) 11.1 H Lymph # [place] # Seg Neutrophils % D-Dimer POC ABG pH POC ABG pCO2 64.2 H POC ABG pO2 Sodium Potassium Chloride 95.8 L Carbon Dioxide 34 H BUN 18 H Creatinine 1.4 H POC Glucose NT-Pro-B Natriuret Pep Total Protein Albumin Urine WBC (Auto) Urine Creatinine 05/26/19 05/26/19 06:58 06:58 MCH 27 L RDW 18.5 H [place] % (Auto) 10.4 H Lymph # 1.0 L [place] # Seg Neutrophils % 72.9 H D-Dimer POC ABG pH POC ABG pCO2 POC ABG pO2 Sodium Potassium 5.3 H D Chloride 94.4 L Carbon Dioxide 36 H BUN 21 H Creatinine 1.3 H POC Glucose NT-Pro-B Natriuret Pep Total Protein Albumin Urine WBC (Auto) Urine Creatinine Allied health notes reviewed: nursing
[2019-05-27] MEDS: FUROSEMIDE 40 MG/4 ML INJ IV SCH (05:56)
[2019-05-27] MEDS: HEPARIN 5,000 UNIT/1 ML VIAL SUB-Q SCH (05:56)
[2019-05-27 07:32] LABS: Basophils % (Auto) 0.6 % (0.0-1.8); Eosinophils # (Auto) 0.1 K/mm3 (0.0-0.4); Eosinophils % (Auto) 2.4 % (0.0-4.3); Lymphocytes # (Auto) 0.9 K/mm3 (1.2-5.4); Lymphocytes % (Auto) 17.8 % (13.4-35.0); Mean Corpuscular HGB Conc 30 % (30-34); Mean Corpuscular Volume 88 fl (79-97); Monocytes # (Auto) 0.7 K/mm3 (0.0-0.8); Monocytes % (Auto) 14.8 % (0.0-7.3); Platelet Count 186 K/mm3 (140-440); Red Blood Count 3.99 M/mm3 (3.65-5.03); Red Cell Distribution Width 18.5 % (13.2-15.2)
[2019-05-27 07:42] LABS: Hematocrit 35.2 % (30.3-42.9); Hemoglobin 10.7 gm/dl (10.1-14.3)
[2019-05-27 08:00] LABS: Calcium 9.6 mg/dL (8.4-10.2)
[2019-05-27] MEDS: GABAPENTIN 300 MG CAP PO SCH (09:33)
[2019-05-27] MEDS: ACETAMINOPHEN 325 MG TAB PO PRN (09:33)
[2019-05-27] MEDS: atenoloL 50 MG TAB PO SCH (09:35)
--- NOTE | 2019-05-27 09:35 | Progress Note ---
Assessment and Plan Acute hypoxic respiratory failure Morbid obesity Obstructive sleep apnea poor compliance with her CPAP at home COPD Chronic hypertension An outpatient echocardiogram done six-months ago showed normal left ventricular systolic function, ejection fraction greater than 50%. Conservative cardiac management. Subjective Date of service: 05/27/19 Principal diagnosis: Ac. hypoxemic Resp failure; LUZ MARINA/OHS; Ac on Ch HFpEF; CAROLANN Interval history: No cardiac complaints. Objective Vital Signs Temp Pulse Resp BP Pulse Ox 05/27/19 05:13 98.8 F 20 120/61 05/26/19 23:33 100 05/26/19 23:31 95 H 20 100 05/26/19 21:46 98.0 F 102 H 20 152/72 93 05/26/19 17:45 98.3 F 108 H 20 119/63 93 05/26/19 12:50 100.0 F H 93 H 24 153/74 96 05/26/19 09:39 89 107/69 05/26/19 09:38 89 107/69 - Physical Examination General: No Apparent Distress, Other (morbidly obese) HEENT: Positive: PERRL Neck: Positive: trachea midline Cardiac: Positive: Reg Rate and Rhythm Lungs: Positive: Decreased Breath Sounds Neuro: Positive: Grossly Intact Abdomen: Positive: Soft Extremities: Absent: edema - Labs and Meds CBC 05/27/19 Range/Units 07:06 WBC 5.1 (4.5-11.0) K/mm3 RBC 3.99 (3.65-5.03) M/mm3 Hgb 10.7 (10.1-14.3) gm/dl Hct 35.2 (30.3-42.9) % Plt Count 186 (140-440) K/mm3 Lymph # 0.9 L (1.2-5.4) K/mm3 [place] # 0.7 (0.0-0.8) K/mm3 Eos # 0.1 (0.0-0.4) K/mm3 Baso # 0.0 (0.0-0.1) K/mm3 Comprehensive Metabolic Panel 05/27/19 Range/Units 07:06 Sodium 146 H (137-145) mmol/L Potassium 3.7 D (3.6-5.0) mmol/L Chloride 94.9 L (98-107) mmol/L Carbon Dioxide 38 H (22-30) mmol/L BUN 21 H (7-17) mg/dL Creatinine 1.3 H (0.7-1.2) mg/dL Glucose 86 (65-100) mg/dL Calcium 9.6 (8.4-10.2) mg/dL - Allied health notes Allied health notes reviewed: nursing
[2019-05-27] MEDS: CEFEPIME/NS 2 GM/100 ML 2 GM/100 ML BAG IV SCH (09:37)
--- NOTE | 2019-05-27 10:58 | Discharge Summary ---
Providers - Providers Date of Admission: 05/19/19 17:20 Attending physician: MINDY MARTIN MD 05/19/19 19:13 Consult to Physician [CONS] Routine Comment: Consulting Provider: FAMILIA TAVERAS Physician Instructions: Reason For Exam: CAROLANN 05/19/19 19:14 Consult to Physician [CONS] Routine Comment: Consulting Provider: YAN TEMPLETON Physician Instructions: Reason For Exam: Respiratory Failure 05/21/19 14:19 Consult to Wound/ET Nurse [CONS] Routine Reason For Exam: wound eval 05/21/19 14:45 Consult to Physician [CONS] Routine Comment: Consulting Provider: VALERIE VIDES Physician Instructions: Reason For Exam: CHF, patient known to you 05/22/19 14:14 Consult to Physician [CONS] Routine Comment: Consulting Provider: MAKSIM SAMUEL Physician Instructions: Reason For Exam: UTI, still febrile despite Rocephin Primary care physician: DANIELA Hospitalization Reason for admission: acute respiratory failure Condition: Stable Hospital course: Patient is a 58 yo woman with a history of obesity, bmi 68.3, Obesity Hypoventilation Syndrome (Noncompliant with CPAP), HTN, OA and COPD who presents with SOB over the past 1 month. Pt was found to have pulse oximetry of 76% on room air. Pt instructed to seek further care at [facility]. PT seen and evaluated in ED and found to have symptoms consistent with CHF Decompensation, Acute Hypoxemic Respiratory Failure, Acute Kidney Injury. * pCXR Impression: Cardiomegaly with mild congestive heart failure * CT chest without contrast IMPRESSION: No acute abnormality. * U/S venous doppler negative for DVT * 3v Left Knee Impression: OA * 3v Left ankle Impression: Soft tissue swelling, OA, plantar spur * V/Q scan unable to be done due to weight. * Outpatient ECHO reviewed from [facility], 10/30/2018 EF >50%, mild LVH, grade 1 diastolic dysfunction, * Considering new need for oxygen and Pulm concern, patient started on Eliquis premptively. I had extensive discussion with the patient about the medication and side effects. the patient will need repeat Renal function and if stable, obtain a CTA chest to rule out PE and if negative, Eliquis can be discontinued. * She stated that she does not have CPAP since she moved from [place], CM advised and will work on this. I will also have patient follow with Pulmonary incase she needs repeat sleep study among others. * Patient also stressed frustration about not being able to get a hold of her PCP, she will be given a list of other doctors and encouraged to continue to try to reach her PCP but use the list in the interim. * cardiology evaluated and recommended conservative management among others also documented "An outpatient echocardiogram done six-months ago showed normal left ventricular systolic function, ejection fraction greater than 50%." * Will also qualified for home oxygen based on the finding of home o2 eval * pATIENT WAS TREATED FOR UTI NO EVIDENCE OF SEPSIS NOTED -Acute hypoxic Respiratory failure: supplemental oxygen, pulse oximetry, NIPPV as clinically indicated, CT chest, chest x ray, reviewed, pulmonology consulted, input noted -Acute and chronic diastolic HEART FAILURE exacerbation: treat with diuretics, Echo done at Cardiology office (see above), Strict I/O, daily weight, supplemental oxygen, consulted Cardiology, input noted -CAROLANN (acute kidney injury), vasomotor nephropathy: Monitor UOP w shift, Nephrology consulted, avoid nephrotoxic agents, BMP, ivf resuscitation therapy as tolerated. -Obesity hypoventilation syndrome: supplemental oxygen, NIPPV as clinically indicated, pulse oximetry, balanced diet, increased physical activity as tolerated. Outpatient bariatric surgery. Pulmonology is following -Hypernatremia: Nephrology consulted, IVF resuscitation as tolerated, monitor bmp closely -Hyperkalemia, mild: give kayexalate, repeat level in AM -LUZ MARINA, noncompliant with CPAP: counseling done -Noncompliance with diuretics: counseling done, it she refuses, will discharge home -Extreme Morbid obesity, bmi 68: eap counselor on weight reduction -SIRS WITH NO ORGAN DYSNFUNCTION -Fevers, suspect UTI, urine ctx contaminated: ID consulted, input noted -Chronic Hypertension Disposition: [id number]/TX-06 HOME UNDER HOME [facility] Time spent for discharge: 35 mins Core Measure Documentation - Palliative Care Palliative Care/ Comfort Measures: Not Applicable - Core Measures Any of the following diagnoses?: none Exam - Physical Exam Narrative exam: VITAL SIGNS: Reviewed. GENERAL: The patient appears normally developed, morbidly obese Vital signs as documented. HEAD: No signs of head trauma. EYES: Pupils are equal. Extraocular motions intact. EARS: Hearing grossly intact. MOUTH: Oropharynx is normal. NECK: No adenopathy, no JVD. CHEST: Chest with dimished breath sounds bilaterally. No wheezes, rales, or rhonchi. CARDIAC: Regular rate and rhythm. S1 and S2, without murmurs, gallops, or rubs. VASCULAR: No Edema. Peripheral pulses normal and equal in all extremities. ABDOMEN: Soft, non tender and non distended. No rebound or guarding, and no masses palpated. Bowel Sounds normal. MUSCULOSKELETAL: Good range of motion of all major joints. Extremities without clubbing, cyanosis or edema. NEUROLOGIC EXAM: Alert and oriented x 3 No focal sensory or strength defici ts. Speech normal. Follows commands. PSYCHIATRIC: Mood normal. SKIN: detail exam as documented in skin assessment - Constitutional Vitals: Temp Pulse Resp BP Pulse Ox 98.8 F 104 H 20 123/51 100 05/27/19 05:13 05/27/19 09:35 05/27/19 05:13 05/27/19 09:35 05/26/19 23:33 Plan Activity: advance as tolerated, fall precautions Diet: low fat Special Instructions: record daily weights, record daily BP diary, home oxygen via (nasal cannula @ 2 liters per minute) Durable Medical Equipment Needed Upon Discharge: Oxygen Care Plan Goals: improved oxygenation Plan of Treatment: ElIQUIS TILL PATIENT ABLE TO OBTAIN CTA CHEST TO EVAL FOR POSSIBLE PE, CONSIDERING HYPOXIA Health Concerns: PULMONARY EMBOLISIM, MORBID OBESITY, OBESITY HYPOVENTILATION SYNDROM Assessment: GUARDED PROGNOSIS CONSIDERING RISK FACTORS Follow up with: EMMA SUAREZ MD [Primary Care Provider] - 7 Days FAMILIA TAVERAS MD [Staff Physician] - 7 Days VALERIE VIDES MD [Staff Physician] - 7 Days YAN TEMPLETON MD [Staff Physician] - 7 Days Prescriptions: amLODIPine 10 mg PO QDAY #30 tablet Apixaban [Eliquis] 5 mg PO Q12HR #60 tablet ALBUTEROL NEB's [Proventil 0.083% NEBS] 2.5 mg IH Q4HRT PRN #90 nebu PRN Reason: Shortness Of Breath Atenolol [Tenormin] 25 mg PO DAILY #120 tab
[2019-05-27] MEDS ORDERED: APIXABAN 5 MG TAB PO SCH (11:05)
[2019-05-27 12:23] VITALS: BP 116/66
--- NOTE | 2019-05-27 14:04 | Progress Note ---
Assessment and Plan Cultures: Blood culture 05/21/19 no growth to date Urine culture 05/22/19 no growth to date Assessment: 58 yo F PMHx obesity, obesity hypoventilation syndrome, HTN, HTN, COPD admitted with CHF decompensation, found to be febrile. 1. Acute sepsis - possible secondary to UTI. Present with fevers and ta chycardia. Fevers now resolved. Completed abx. 2. UTI - cultures negative, but repeat obtained after initiation of antibiotics. Completed 5 days of Cefepime. 3. Acute CHF exacerbation, obesity hypoventilation 4. Morbid obesity 5. CKD vs CAROLANN - renally dose antibiotics. Creatinine gradually improving. Recs: No abx needed upon discharge Ashok Plascencia MD, FACP [facility] M: [phone] O: [phone] F: [phone] Subjective Date of service: 05/27/19 Principal diagnosis: Ac. hypoxemic Resp failure; LUZ MARINA/OHS; Ac on Ch HFpEF; CAROLANN Interval history: No fever. Sitting upright. Has no complaints. Objective - Exam Narrative Exam: Physical Exam: Constitutional: Alert, cooperative. No acute distress. Morbid obesity Head, Ears, Nose: Normocephalic, atraumatic. External ears, nose normal Eyes: Conjunctivae/corneas clear. No icterus. No ptosis. Neck: Supple, no meningeal signs Cardiovascular: S1, S2 normal. Respiratory: AE reduced bilaterally GI: obese. Soft, non-tender; bowel sounds normal. No peritoneal signs Musculoskeletal: No pedal edema, no cyanosis. Obese. no suprapubic tenderness or CVA tenderness Skin: No rash or abscess Hem/Lymphatic: No palpable cervical or supraclavicular nodes. No lymphangitis Psych: Mood ok. Affect normal Neurological: Awake, alert, oriented. No gross abnormality - Constitutional Vitals: Vital Signs Temp Pulse Resp BP Pulse Ox 97.8 F 80 20 116/66 90 05/27/19 11:34 05/27/19 11:34 05/27/19 05:13 05/27/19 11:34 05/27/19 11:34 Temperature -Last 24 Hours Temperature 97.8 F Temperature 98.8 F Temperature 98.0 F Temperature 98.3 F - Labs CBC & Chem 7: 05/27/19 07:06 05/27/19 07:06 Labs: Abnormal lab results 05/27/19 05/27/19 Range/Units 07:06 07:06 MCH 27 L (28-32) pg RDW 18.5 H (13.2-15.2) % [place] % (Auto) 14.8 H (0.0-7.3) % Lymph # 0.9 L (1.2-5.4) K/mm3 Sodium 146 H (137-145) mmol/L Chloride 94.9 L (98-107) mmol/L Carbon Dioxide 38 H (22-30) mmol/L BUN 21 H (7-17) mg/dL Creatinine 1.3 H (0.7-1.2) mg/dL
== END 2019-05-27 16:20 | disposition home health service (06) | DRG 682 ==
LOC: ED 14:09 → 3A 17:20
PROVIDERS: ADMIT Internal Medicine; ATTEND Internal Medicine
PROC: 4A033R1 Measurement of Arterial Saturation, Peripheral, Percutaneous Approach (ICD-10-PCS; 2019-05-19)
PROC: 5A09357 Assistance with Respiratory Ventilation, Less than 24 Consecutive Hours, Continuous Positive Airway Pressure (ICD-10-PCS; principal; 2019-05-21)
PROC: 5A09357 Assistance with Respiratory Ventilation, Less than 24 Consecutive Hours, Continuous Positive Airway Pressure (ICD-10-PCS; 2019-05-23)
PROC: 5A09357 Assistance with Respiratory Ventilation, Less than 24 Consecutive Hours, Continuous Positive Airway Pressure (ICD-10-PCS; 2019-05-24)
PROC: 5A09357 Assistance with Respiratory Ventilation, Less than 24 Consecutive Hours, Continuous Positive Airway Pressure (ICD-10-PCS; 2019-05-26)
DX: N17.0 Acute kidney failure with tubular necrosis (principal); J96.01 Acute respiratory failure with hypoxia; A41.9 Sepsis, unspecified organism; I50.43 Acute on chronic combined systolic (congestive) and diastolic (congestive) heart failure; E66.2 Morbid (severe) obesity with alveolar hypoventilation; N39.0 Urinary tract infection, site not specified; E87.0 Hyperosmolality and hypernatremia; Z68.44 Body mass index [BMI] 60.0-69.9, adult; I11.0 Hypertensive heart disease with heart failure; M10.9 Gout, unspecified; E87.5 Hyperkalemia; Z82.49 Family history of ischemic heart disease and other diseases of the circulatory system; Z71.3 Dietary counseling and surveillance; Z83.3 Family history of diabetes mellitus; Z79.899 Other long term (current) drug therapy
CPT/HCPCS: 36415; 36600; 71046; 71250; 80048; 80053; 81001; 82550; 82570; 82803; 82962; 83735; 83880; 84100; 84300; 84484; 85025; 85379; 85610; 85730; 87040; 87086; 89050; 93005; 93010; 93306; 93970; 94660; 94760; 96374; G0378; J0692; J0696; J1644; J1940; J7050

== ENCOUNTER 2020-08-03 19:54 | Observation (INO) | payer MEDICARE ==
[2020-08-03] MEDS ORDERED: IPRATROPIUM/ALBUTEROL SULFATE 3 ML AMPUL.NEB IH ONE (20:20)
[2020-08-03] MEDS ORDERED: levoFLOXacin 500 MG TAB PO ONE (20:20)
[2020-08-03 20:49] LABS: Basophils % (Auto) 0.5 % (0.0-1.8); Eosinophils # (Auto) 0.1 K/mm3 (0.0-0.4); Eosinophils % (Auto) 0.9 % (0.0-4.3); Lymphocytes # (Auto) 1.8 K/mm3 (1.2-5.4); Lymphocytes % (Auto) 19.4 % (13.4-35.0); Mean Corpuscular HGB Conc 30 % (30-34); Mean Corpuscular Volume 95 fl (79-97); Monocytes # (Auto) 0.8 K/mm3 (0.0-0.8); Monocytes % (Auto) 8.7 % (0.0-7.3); Platelet Count 223 K/mm3 (140-440); Red Cell Distribution Width 17.5 % (13.2-15.2)
[2020-08-03 20:53] LABS: Hemoglobin 9.7 gm/dl (10.1-14.3)
[2020-08-03 20:54] LABS: Hematocrit 32.3 % (30.3-42.9)
--- NOTE | 2020-08-03 20:56 | Emergency Department Report ---
ED Shortness of Breath HPI - General Chief Complaint: Dyspnea/Respdistress Stated Complaint: DIFF BREATHING LEG PAIN Time Seen by Provider: 08/03/20 20:11 Source: patient, EMS, old records reviewed Mode of arrival: Stretcher Limitations: No Limitations, Other - History of Present Illness Initial Comments: Chief complaint: "I have a lot going on." HPI: This is a 59-year-old female with history of COPD, CHF, PE currently not on anticoagulation, venous stasis dermatitis, left lower extremity wound, severe obesity BMI 63, who presents with shortness of breath and possible wound infection. Patient states that she is dependent on 3 L nasal cannula. She states that normally she is able to ambulate to the bathroom without nasal cannula. When she returns to her oxygen, her shortness of breath resolves after a few minutes. She has taken a longer time to recover without oxygen over the past week she has worse shortness of breath after exertion. He currently takes longer to recover after exertion. She is concerned for recurrent pulmonary embolism. She currently is not taking any anticoagulation. On 4 L nasal cannula per EMS, oxygen saturation 97% on room air. She is concerned for wound infection. She has not had wound care in over a m [facility]. She only was able to receive 8 visits from wound care nurse without follow-up with physician. Wound has an older. The wound is located at the posterior left lower leg just above the ankle. She denies fever she denies cough. No known sick contacts. She denies chest pain. I have reviewed previous discharge summary. Patient is admitted May 2019 for shortness of breath evaluation. Due to severe obesity, patient was unable to receive VQ scan. Due to renal insufficiency CTA was not advised. MD Complaint: shortness of breath -: Gradual, week(s) (1 week) Severity: moderate Pain Scale: 0 Consistency: constant Improves With: oxygen, rest Worsens With: exertion Known History Of: COPD, congestive heart failure Associated Symptoms: other (Left lower extremity wound) Treatments Prior to Arrival: oxygen (4 L nasal cannula above patient's 3 L) - Related Data Home Oxygen Therapy: Yes Home Oxygen Amount: 3 Liters Home Medications Medication Instructions Recorded Confirmed Last Taken Gabapentin 300 mg PO BID 05/19/19 05/19/19 Unknown Multivit-Minerals/Folic Acid [One 0.4 mg PO DAILY 05/19/19 05/20/19 Unknown Daily Womens 50 Plus Tab] Tylenol Pm Ex-Strength Caplet 650 mg PO Q6H PRN 05/19/19 05/20/19 Unknown Previous Rx's Medication Instructions Recorded Last Taken Type ALBUTEROL NEB's [Proventil 0.083% 2.5 mg IH Q4HRT PRN #90 nebu 05/27/19 Unknown Rx NEBS] Apixaban [Eliquis] 5 mg PO Q12HR #60 tablet 05/27/19 Unknown Rx amLODIPine 10 mg PO QDAY #30 tablet 05/27/19 Unknown Rx atenoloL [Tenormin] 25 mg PO DAILY #120 tab 05/27/19 Unknown Rx Allergies Allergy/AdvReac Type Severity Reaction Status Date / Time egg AdvReac Severe Hives Verified 05/24/19 12:47 ED Review of Systems ROS: Stated complaint: DIFF BREATHING LEG PAIN Other details as noted in HPI Comment: All other systems reviewed and negative Constitutional: denies: chills, fever, malaise Respiratory: shortness of breath. denies: cough, wheezing Cardiovascular: denies: chest pain Gastrointestinal: denies: abdominal pain, nausea, vomiting Skin: lesions ED Past Medical Hx - Past Medical History Previous Medical History?: Yes Hx Hypertension: Yes Hx Congestive Heart Failure: Yes Hx Arthritis: Yes (osteo) Hx COPD: Yes Additional medical history: Abdominal hernia, severe obesity - Surgical History Past Surgical History?: Yes Additional Surgical History: gastric bypass-partial 2006 - Social History Smoking Status: Former Smoker - Medications Home Medications: Home Medications Medication Instructions Recorded Confirmed Last Taken Type Gabapentin 300 mg PO BID 05/19/19 05/19/19 Unknown History Multivit-Minerals/Folic Acid [One 0.4 mg PO DAILY 05/19/19 05/20/19 Unknown History Daily Womens 50 Plus Tab] Tylenol Pm Ex-Strength Caplet 650 mg PO Q6H PRN 05/19/19 05/20/19 Unknown History ALBUTEROL NEB's [Proventil 0.083% 2.5 mg IH Q4HRT PRN #90 nebu 05/27/19 Unknown Rx NEBS] Apixaban [Eliquis] 5 mg PO Q12HR #60 tablet 05/27/19 Unknown Rx amLODIPine 10 mg PO QDAY #30 tablet 05/27/19 Unknown Rx atenoloL [Tenormin] 25 mg PO DAILY #120 tab 05/27/19 Unknown Rx ED Physical Exam - General Limitations: Other General appearance: alert, in no apparent distress, other (Speaking for sentences, no obvious work of breathing) - Head Head exam: Present: atraumatic, normocephalic - Eye Eye exam: Present: normal appearance - ENT ENT exam: Present: mucous membranes moist - Neck Neck exam: Present: normal inspection, full ROM - Respiratory Respiratory exam: Present: normal lung sounds bilaterally. Absent: respiratory distress, wheezes, rales, rhonchi, accessory muscle use, decreased breath sounds, prolonged expiratory - Cardiovascular Cardiovascular Exam: Present: regular rate, normal rhythm, normal heart sounds. Absent: systolic murmur, diastolic murmur, rubs, gallop - GI/Abdominal GI/Abdominal exam: Present: soft, normal bowel sounds. Absent: distended, tenderness, guarding, rebound - Extremities Exam Extremities exam: Present: other (No significant edema, indurated darkened lichenified skin lower extremities, bandage in place left lower extremity,) - Neurological Exam Neurological exam: Present: alert, oriented X3 - Psychiatric Psychiatric exam: Present: normal affect, normal mood - Skin Skin exam: Present: warm, normal color, other (I removed bandage: Patient has superficial leg ulcer left posterior lower leg just above the ankle: There is malodorous discharge yellow-brown in color. No surrounding cellulitis, frayed skin. Wound 4 cm x 4 cm in size.). Absent: rash ED Course Vital Signs 08/03/20 08/03/20 08/03/20 20:25 20:31 20:45 Pulse Rate 86 88 Respiratory 15 12 Rate Blood Pressure 147/76 147/76 O2 Sat by Pulse 93 95 93 Oximetry 08/03/20 08/03/20 08/03/20 21:00 21:15 21:31 Pulse Rate 86 78 81 Respiratory 10 L 17 Rate Blood Pressure 162/86 162/86 162/86 O2 Sat by Pulse 86 87 90 Oximetry 08/03/20 08/03/20 08/03/20 21:45 22:01 22:15 Pulse Rate Respiratory Rate Blood Pressure 162/86 162/86 162/86 O2 Sat by Pulse 84 97 98 Oximetry ED Medical Decision Making - Lab Data Result diagrams: 08/03/20 20:25 08/03/20 20:25 Laboratory Results - last 24 hr 08/03/20 08/03/20 08/03/20 20:25 20:25 20:25 WBC 9.1 RBC 3.40 L Hgb 9.7 L Hct 32.3 MCV 95 MCH 29 MCHC 30 RDW 17.5 H Plt Count 223 Lymph % (Auto) 19.4 [place] % (Auto) 8.7 H Eos % (Auto) 0.9 Baso % (Auto) 0.5 Lymph # (Auto) 1.8 [place] # (Auto) 0.8 Eos # (Auto) 0.1 Baso # (Auto) 0.0 Seg Neutrophils % 70.5 H Seg Neutrophils # 6.4 D-Dimer 736.43 H Sodium 144 Potassium 4.7 Chloride 100.8 Carbon Dioxide 36 H Anion Gap 12 BUN 18 H Creatinine 1.3 H Estimated GFR 51 BUN/Creatinine Ratio 14 Glucose 111 H Calcium 9.3 NT-Pro-B Natriuret Pep 08/03/20 20:25 WBC RBC Hgb Hct MCV MCH MCHC RDW Plt Count Lymph % (Auto) [place] % (Auto) Eos % (Auto) Baso % (Auto) Lymph # (Auto) [place] # (Auto) Eos # (Auto) Baso # (Auto) Seg Neutrophils % Seg Neutrophils # D-Dimer Sodium Potassium Chloride Carbon Dioxide Anion Gap BUN Creatinine Estimated GFR BUN/Creatinine Ratio Glucose Calcium NT-Pro-B Natriuret Pep 755.5 - EKG Data -: EKG Interpreted by Mn EKG shows normal: sinus rhythm, axis, QRS complexes, ST-T waves Rate: normal - EKG Data Interpretation: normal EKG 08/03/20 23:50 EKG obtained 2341 EKG interpreted by nc Normal sinus rhythm rate 75 bpm normal axis prolonged TN interval normal QTC no ST elevation nonischemic T wave pattern - Radiology Data Radiology results: report reviewed, image reviewed CHEST 1 VIEW 08/03/2020 8:34 PM INDICATION / CLINICAL INFORMATION: Dyspnea. COMPARISON: 05/19/2019 FINDINGS: SUPPORT DEVICES: None. HEART / MEDIASTINUM: Stable. LUNGS / PLEURA: Persistent central pulmonary vascular congestion and mild interstitial edema. Calcite granulomas in the right lung field is unchanged. No pneumothorax. ADDITIONAL FINDINGS: No significant additional findings. IMPRESSION: 1. Persistent congestive heart failure and interstitial edema similar to prior exam. - Medical Decision Making 1. Dyspnea with history of COPD, CHF and severe obesity. Previous history of pulmonary embolism. Patient is too large to obtain VQ scan or CT angio of the chest. I do not suspect pulmonary embolism at this time without significant tachycardia. However patient is at high risk for recurrent VTE considering severe obesity and immobility. Patient may require lifelong anticoagulation. Patient was given 1 dose IV furosemide in the emergency department. Patient does have history of CKD. She will need gentle diuresis. 2. Infected leg ulcer: No surrounding cellulitis. Patient will benefit from wound care. P.o. Levaquin initiated in the emergency department. Patient admitted to the hospital service in fair condition. Critical care attestation.: If time is entered above; I have spent that time in minutes in the direct care of this critically ill patient, excluding procedure time. ED Disposition Clinical Impression: CHF (congestive heart failure), Acute and chronic respiratory failure, Leg wound, left Disposition: OP ADMIT IP TO THIS HOSP Is pt being admited?: Yes Does the pt Need Aspirin: No Condition: Stable Referrals: EMMA SUAREZ MD [Primary Care Provider] - 3-5 Days
[2020-08-03 21:12] LABS: Calcium 9.3 mg/dL (8.4-10.2)
--- NOTE | 2020-08-03 22:10 | XRay Report ---
CHEST 1 VIEW 08/03/2020 8:34 PM INDICATION / CLINICAL INFORMATION: Dyspnea. COMPARISON: 05/19/2019 FINDINGS: SUPPORT DEVICES: None. HEART / MEDIASTINUM: Stable. LUNGS / PLEURA: Persistent central pulmonary vascular congestion and mild interstitial edema. Calcite granulomas in the right lung field is unchanged. No pneumothorax. ADDITIONAL FINDINGS: No significant additional findings. IMPRESSION: 1. Persistent congestive heart failure and interstitial edema similar to prior exam. Signer Name: Khadar Muñoz MD Signed: 08/03/2020 10:06 PM Workstation Name: [id number]
[2020-08-04] MEDS ORDERED: ONDANSETRON 4 MG/2 ML INJ IV PRN (00:16)
[2020-08-04] MEDS ORDERED: MORPHINE 2 MG/1 ML INJ IV PRN (00:16)
[2020-08-04] MEDS ORDERED: MAGNESIUM HYDROXIDE (MOM) ORAL LIQD UDC PO PRN (00:16)
[2020-08-04] MEDS ORDERED: ACETAMINOPHEN 325 MG TAB PO PRN (00:16)
--- NOTE | 2020-08-04 00:26 | History and Physical Report ---
History of Present Illness Date of examination: 08/04/20 Date of admission: 08/04/2020 Chief complaint: Shortness of Breath History of present illness: 59-year-old -Finnish female with significant past medical history of COPD, pulmonary embolism on apixaban, CHF with ejection fraction of 60 to 65% on echo done on June 03, 2019, venous stasis dermatitis, severe obesity with BMI of 73 presenting to the emergency room today complaining of shortness of keysha ath and left leg wound infection. Patient uses oxygen at home 3 L by nasal cannula and indicates that she is able to ambulate to the restroom without using oxygen. However she has gotten more short of breath lately which gets worse on minimal exertion. Patient also indicates that she has had occasional chest pain. This however has been intermittent. She denies any palpitations, no headache or dizziness, no nausea vomiting, no abdominal pain, and no diarrhea. Patient denies any fever or chills. Patient is supposed to be on anticoagulation for history of recurrent pulmonary embolism but indicates that she has not been taking any anticoagulation over the past several weeks. She has had a left leg wound for which she had home health care nurse for about 8 weeks but since the services stopped daughter and has been doing the dressing on left leg wound. Patient has noticed some foul odor from the wound lately. Evaluation in the emergency room today reveals elevated BNP, chest x-ray reveals interstitial edema, D-dimer was also elevated. Patient being admitted for CHF exacerbation, left leg wound infection and elevated D-dimer. Past History Past Medical History: arthritis, COPD, heart failure, hypertension, other (Morbid Obesity) Past Surgical History: Other (Abdominal hernia,Gastric Bypass surgery in 2006) Social history: smoking (Former Smoker) Family history: no significant family history Medications and Allergies Allergies Allergy/AdvReac Type Severity Reaction Status Date / Time egg AdvReac Severe Hives Verified 05/24/19 12:47 Home Medications Medication Instructions Recorded Confirmed Last Taken Type Gabapentin 300 mg PO BID 05/19/19 05/19/19 Unknown History Multivit-Minerals/Folic Acid [One 0.4 mg PO DAILY 05/19/19 05/20/19 Unknown History Daily Womens 50 Plus Tab] Tylenol Pm Ex-Strength Caplet 650 mg PO Q6H PRN 05/19/19 05/20/19 Unknown History ALBUTEROL NEB's [Proventil 0.083% 2.5 mg IH Q4HRT PRN #90 nebu 05/27/19 Unknown Rx NEBS] Apixaban [Eliquis] 5 mg PO Q12HR #60 tablet 05/27/19 Unknown Rx amLODIPine 10 mg PO QDAY #30 tablet 05/27/19 Unknown Rx atenoloL [Tenormin] 25 mg PO DAILY #120 tab 05/27/19 Unknown Rx Active Meds: Active Medications Acetaminophen (Acetaminophen 325 Mg Tab) 650 mg PO Q4H PRN PRN Reason: Pain MILD(1-3)/Fever >100.5/CHAVEZ Furosemide (Furosemide 40 Mg/4 Ml Inj) 40 mg IV BID@0600,1800 MARCELLA Magnesium Hydroxide (Magnesium Hydroxide (Mom) Oral Liqd Udc) 30 ml PO Q4H PRN PRN Reason: Constipation Morphine Sulfate (Morphine 2 Mg/1 Ml Inj) 2 mg IV Q4H PRN PRN Reason: Pain, Moderate (4-6) Ondansetron HCl (Ondansetron 4 Mg/2 Ml Inj) 4 mg IV Q8H PRN PRN Reason: Nausea And Vomiting Sodium Chloride (Sodium Chloride 0.9% 10 Ml Flush Syringe) 10 ml IV BID MARCELLA Sodium Chloride (Sodium Chloride 0.9% 10 Ml Flush Syringe) 10 ml IV PRN PRN PRN Reason: LINE FLUSH Review of Systems Constitutional: no fever, no chills Ears, nose, mouth and throat: no nasal congestion, no sore throat Cardiovascular: no chest pain, no palpitations Respiratory: shortness of breath, no wheezing Gastrointestinal: no abdominal pain, no nausea, no vomiting, no diarrhea Genitourinary Female: no flank pain, no dysuria, no hematuria Musculoskeletal: no neck pain, no low back pain Integumentary: no rash, no pruritis Neurological: no headaches, no confusion Psychiatric: no anxiety, no depression Exam - Constitutional Vitals: Temp Pulse Resp BP Pulse Ox 81 17 162/86 98 08/03/20 21:31 08/03/20 21:15 08/03/20 22:15 08/03/20 22:15 General appearance: Present: obese. Absent: no acute distress, well-nourished - EENT Eyes: Present: PERRL, EOM intact. Absent: scleral icterus ENT: hearing intact, clear oral mucosa, dentition normal - Neck Neck: Present: supple, normal ROM - Respiratory Respiratory effort: normal Respiratory: bilateral: rales - Cardiovascular Rhythm: regular Heart Sounds: Present: S1 & S2. Absent: gallop, systolic murmur, diastolic murmur, rub - Extremities Extremities: no ischemia, pulses intact, pulses symmetrical, No edema, Full ROM Peripheral Pulses: within normal limits - Abdominal General gastrointestinal: Present: soft, non-tender, non-distended, normal bowel sounds. Absent: mass - Integumentary Integumentary: Present: clear, warm, dry. Absent: rash - Musculoskeletal Musculoskeletal: strength equal bilaterally - Psychiatric Psychiatric: appropriate mood/affect, intact judgment & insight, memory intact, cooperative - Neurologic Neurologic: CNII-XII intact, no focal deficits, moves all extremities - Additional findings Additional findings: Wound over posterior aspect of distal one third of left leg. No obvious drainage. Mildly tender to touch. Results - Labs CBC & Chem 7: 08/03/20 20:25 08/03/20 20:25 Labs: Abnormal lab results 08/03/20 08/03/20 08/03/20 Range/Units 20:25 20:25 20:25 RBC 3.40 L (3.65-5.03) M/mm3 Hgb 9.7 L (10.1-14.3) gm/dl RDW 17.5 H (13.2-15.2) % [place] % (Auto) 8.7 H (0.0-7.3) % Seg Neutrophils % 70.5 H (40.0-70.0) % D-Dimer 736.43 H (0-234) ng/mlDDU Carbon Dioxide 36 H (22-30) mmol/L BUN 18 H (7-17) mg/dL Creatinine 1.3 H (0.6-1.2) mg/dL Glucose 111 H (65-100) mg/dL Assessment and Plan - Patient Problems (1) CHF (congestive heart failure) Current Visit: Yes Status: Acute Qualifiers: Plan to address problem: Patient is admitted and placed on diuretics. Will monitor inputs and outputs and also monitor daily weight. Patient will be scheduled for echocardiogram. We will consult cardiology for evaluation. (2) Leg wound, left Current Visit: Yes Status: Acute Plan to address problem: We will place consult to wound care team for evaluation. Patient is also placed on empiric IV antibiotics. (3) CAROLANN (acute kidney injury) Current Visit: No Status: Acute Plan to address problem: Will monitor BUN and creatinine. Will consult nephrology as needed. (4) Morbid obesity with BMI of 60.0-69.9, adult Current Visit: No Status: Acute Plan to address problem: Patient has BMI of 73. (5) History of pulmonary embolism Current Visit: Yes Status: Acute Plan to address problem: Patient admits that she has not been on anticoagulation for few weeks. We will resume anticoagulation. D-dimer elevated today. Patient unable to undergo CT angiogram in view of her size and renal function. (6) DVT prophylaxis Current Visit: No Status: Acute Plan to address problem: Patient currently on anticoagulation. (7) Full code status Current Visit: Yes Status: Acute Plan to address problem: Patient is a full code.
[2020-08-04] MEDS: PIPERACILLIN/TAZOBACTAM 3.375 3.375 GM/50 ML BAG IV SCH ×2 (03:57→10:33)
[2020-08-04] MEDS ORDERED: HEPARIN 5,000 UNIT/1 ML VIAL SUB-Q SCH (06:00)
[2020-08-04] MEDS: FUROSEMIDE 40 MG/4 ML INJ IV SCH ×2 (06:39→17:04)
--- NOTE | 2020-08-04 09:46 | Consultation ---
History of Present Illness Consult date: 08/04/20 Consult reason: congestive heart failure History of present illness: This is a 59 year old F with morbid obesity, obstructive sleep apnea, COPD on home oxygen, and chronic hypertension. She presents to the emergency department with progressive shortness of breath and hypoxic respiratory failure, oxygen saturation as low as 80%. Chest x-ray shows no interstitial edema. An echocardiogram done just over a year ago showed mild dilated right heart chambers but normal left ventricular systolic function, ejection fraction 60- 65%. Cardiac consultation has been requested for CHF. Past History Past Medical History: arthritis, COPD, hypertension, other (Morbid Obesity, Sleep Apnea) Past Surgical History: Other (Abdominal hernia,Gastric Bypass surgery in 2006) Social history: smoking (Former Smoker) Family history: no significant family history Medications and Allergies Allergies Allergy/AdvReac Type Severity Reaction Status Date / Time egg AdvReac Severe Hives Verified 05/24/19 12:47 Home Medications Medication Instructions Recorded Confirmed Last Taken Type Gabapentin 300 mg PO BID 05/19/19 05/19/19 Unknown History Multivit-Minerals/Folic Acid [One 0.4 mg PO DAILY 05/19/19 05/20/19 Unknown History Daily Womens 50 Plus Tab] Tylenol Pm Ex-Strength Caplet 650 mg PO Q6H PRN 05/19/19 05/20/19 Unknown History ALBUTEROL NEB's [Proventil 0.083% 2.5 mg IH Q4HRT PRN #90 nebu 05/27/19 Unknown Rx NEBS] Apixaban [Eliquis] 5 mg PO Q12HR #60 tablet 05/27/19 Unknown Rx amLODIPine 10 mg PO QDAY #30 tablet 05/27/19 Unknown Rx atenoloL [Tenormin] 25 mg PO DAILY #120 tab 05/27/19 Unknown Rx Active Meds: Active Medications Acetaminophen (Acetaminophen 325 Mg Tab) 650 mg PO Q4H PRN PRN Reason: Pain MILD(1-3)/Fever >100.5/CHAVEZ Amlodipine Besylate (Amlodipine 10 Mg Tab) 10 mg PO QDAY MARCELLA Apixaban (Apixaban 5 Mg Tab) 5 mg PO Q12HR MARCELLA; Protocol Atenolol (Atenolol 25 Mg Tab) 25 mg PO DAILY MARCELLA Furosemide (Furosemide 40 Mg/4 Ml Inj) 40 mg IV BID@0600,1800 MARCELLA Last Admin: 08/04/20 06:39 Dose: 40 mg Documented by: Gabapentin (Gabapentin 300 Mg Cap) 300 mg PO BID MARCELLA Piperacillin Sod/Tazobactam Sod (Zosyn/Ns 3.375gm/50ml) 3.375 gm in 50 mls @ 100 mls/hr IV Q8H MARCELLA; Protocol Last Admin: 08/04/20 03:57 Dose: 100 mls/hr Documented by: Magnesium Hydroxide (Magnesium Hydroxide (Mom) Oral Liqd Udc) 30 ml PO Q4H PRN PRN Reason: Constipation Morphine Sulfate (Morphine 2 Mg/1 Ml Inj) 2 mg IV Q4H PRN PRN Reason: Pain, Moderate (4-6) Last Admin: 08/04/20 04:00 Dose: 2 mg Documented by: Multivitamins/Minerals (Multivitamins,Ther W-Minerals Tab) 1 each PO QDAY [facility] Ondansetron HCl (Ondansetron 4 Mg/2 Ml Inj) 4 mg IV Q8H PRN PRN Reason: Nausea And Vomiting Sodium Chloride (Sodium Chloride 0.9% 10 Ml Flush Syringe) 10 ml IV BID [facility] Sodium Chloride (Sodium Chloride 0.9% 10 Ml Flush Syringe) 10 ml IV PRN PRN PRN Reason: LINE FLUSH Last Admin: 08/04/20 04:02 Dose: 10 ml Documented by: Review of Systems Cardiovascular: shortness of breath, no chest pain, no palpitations Physical Examination Vital Signs Pulse Resp Pulse Ox 86 15 93 08/03/20 20:25 08/03/20 20:25 08/03/20 20:25 General appearance: no acute distress, obese HEENT: Positive: PERRL Neck: Positive: trachea midline Cardiac: Positive: Reg Rate and Rhythm Results 08/03/20 20:25 08/03/20 20:25 CBC 08/03/20 Range/Units 20:25 WBC 9.1 (4.5-11.0) K/mm3 RBC 3.40 L (3.65-5.03) M/mm3 Hgb 9.7 L (10.1-14.3) gm/dl Hct 32.3 (30.3-42.9) % Plt Count 223 (140-440) K/mm3 Lymph # (Auto) 1.8 (1.2-5.4) K/mm3 [place] # (Auto) 0.8 (0.0-0.8) K/mm3 Eos # (Auto) 0.1 (0.0-0.4) K/mm3 Baso # (Auto) 0.0 (0.0-0.1) K/mm3 Comprehensive Metabolic Panel 08/03/20 Range/Units 20:25 Sodium 144 (137-145) mmol/L Potassium 4.7 (3.6-5.0) mmol/L Chloride 100.8 (98-107) mmol/L Carbon Dioxide 36 H (22-30) mmol/L BUN 18 H (7-17) mg/dL Creatinine 1.3 H (0.6-1.2) mg/dL Glucose 111 H (65-100) mg/dL Calcium 9.3 (8.4-10.2) mg/dL Assessment and Plan Acute hypoxic respiratory failure Morbid obesity Obstructive sleep apnea poor compliance with her CPAP at home COPD on home oxygen Chronic hypertension Echoardiogram has been completed, results are pending. Pulmonary consultation for management of chronic lung disease and progressive shortness of breath.
[2020-08-04] MEDS ORDERED: MULTIVIT MINERALS PO SCH (10:00)
[2020-08-04] MEDS ORDERED: [UNRECOGNIZED DRUG - OTHER] PO SCH (10:00)
[2020-08-04] MEDS ORDERED: FOLIC ACID PO SCH (10:00)
[2020-08-04] MEDS: atenoloL 25 MG TAB PO SCH (10:31)
[2020-08-04] MEDS: amLODIPine 10 MG TAB PO SCH (10:32)
[2020-08-04] MEDS: GABAPENTIN 300 MG CAP PO SCH ×2 (10:32→21:23)
[2020-08-04] MEDS: MULTIVITAMINS,THER W-MINERALS TAB PO SCH (10:32)
[2020-08-04] MEDS: APIXABAN 5 MG TAB PO SCH ×2 (10:32→21:24)
--- NOTE | 2020-08-04 14:56 | Progress Note ---
Assessment and Plan -Acute on chronic hypoxic Respiratory failure: cont supplemental oxygen, pulse oximetry, NIPPV as clinically indicated, ordered COVID -Acute and chronic diastolic HEART FAILURE exacerbation: treat with diuretics, Echo last year showed preserved EF, Strict I/O, daily weight, supplemental oxygen, consulted Cardiology, input noted -CAROLANN (acute kidney injury), vasomotor nephropathy: Monitor UOP w shift, avoid nephrotoxic agents, BMP -Obesity hypoventilation syndrome: supplemental oxygen, CPAP at bedtime -LUZ MARINA, noncompliant with CPAP: counseling done -Noncompliance with diuretics: counseling done, -Extreme Morbid obesity, bmi 68: children counselor on weight reduction -Chronic Hypertension, cont home meds -- Leg wound, left We will place consult to wound care team for evaluation. Patient is also placed on empiric IV antibiotics. -- History of pulmonary embolism Patient admits that she has not been on anticoagulation for few weeks. We will resume anticoagulation. D-dimer elevated today. Patient unable to undergo CT angiogram in view of her size and renal function. --DVT prophylaxis Patient currently on anticoagulation. -- Full code status 08/04: We will follow 2D echo result, will also rule out COVID-19. cont iv d iuresis, follow BMP Subjective Date of service: 08/04/20 Interval history: Patient seen and examined c/o SOB and cough ordered for COVID test tolerating diet Objective - Constitutional Vitals: Vital Signs - 12hr 08/04/20 08/04/20 08/04/20 04:00 08:54 10:31 Temperature 98.5 F 98.6 F Pulse Rate 81 96 H 96 H Respiratory 16 20 Rate Blood Pressure 143/53 147/77 147/77 O2 Sat by Pulse 87 91 Oximetry 08/04/20 08/04/20 08/04/20 10:32 10:50 12:11 Temperature 98.5 F Pulse Rate 96 H 98 H Respiratory 20 Rate Blood Pressure 147/77 144/78 O2 Sat by Pulse 92 87 Oximetry General appearance: Present: obese (morbidly) - EENT Eyes: PERRL, EOM intact ENT: hearing intact, clear oral mucosa Ears: bilateral: normal - Neck Neck: supple, normal ROM - Respiratory Respiratory effort: normal Respiratory: bilateral: diminished - Cardiovascular Rhythm: regular Heart Sounds: Present: S1 & S2. Absent: gallop, rub Extremities: pulses intact, No edema, normal color, Full ROM - Gastrointestinal General gastrointestinal: Present: soft, non-tender, non-distended, normal bowel sounds - Integumentary Integumentary: clear, warm, dry - Musculoskeletal Musculoskeletal: 1, strength equal bilaterally - Neurologic Neurologic: moves all extremities - Psychiatric Psychiatric: memory intact, appropriate mood/affect, intact judgment & insight - Labs CBC & Chem 7: 08/05/20 04:35 08/05/20 04:35 Labs: Abnormal lab results 08/03/20 08/03/20 08/03/20 Range/Units 20:25 20:25 20:25 RBC 3.40 L (3.65-5.03) M/mm3 Hgb 9.7 L (10.1-14.3) gm/dl RDW 17.5 H (13.2-15.2) % [place] % (Auto) 8.7 H (0.0-7.3) % Seg Neutrophils % 70.5 H (40.0-70.0) % D-Dimer 736.43 H (0-234) ng/mlDDU Carbon Dioxide 36 H (22-30) mmol/L BUN 18 H (7-17) mg/dL Creatinine 1.3 H (0.6-1.2) mg/dL Glucose 111 H (65-100) mg/dL
[2020-08-05] MEDS: PIPERACILLIN/TAZOBACTAM 3.375 3.375 GM/50 ML BAG IV SCH ×2 (02:00→17:51)
[2020-08-05] MEDS: FUROSEMIDE 40 MG/4 ML INJ IV SCH (05:50)
[2020-08-05 06:06] LABS: Basophils % (Auto) 0.3 % (0.0-1.8); Eosinophils # (Auto) 0.1 K/mm3 (0.0-0.4); Eosinophils % (Auto) 1.7 % (0.0-4.3); Hematocrit 31.9 % (30.3-42.9); Hemoglobin 9.6 gm/dl (10.1-14.3); Lymphocytes # (Auto) 1.9 K/mm3 (1.2-5.4); Lymphocytes % (Auto) 23.2 % (13.4-35.0); Mean Corpuscular HGB Conc 30 % (30-34); Mean Corpuscular Volume 95 fl (79-97); Monocytes # (Auto) 0.8 K/mm3 (0.0-0.8); Monocytes % (Auto) 9.1 % (0.0-7.3); Platelet Count 233 K/mm3 (140-440); Red Blood Count 3.35 M/mm3 (3.65-5.03); Red Cell Distribution Width 17.4 % (13.2-15.2)
[2020-08-05 06:11] LABS: Calcium 9.2 mg/dL (8.4-10.2)
[2020-08-05 06:15] LABS: INR 1.3 (0.87-1.13)
[2020-08-05] MEDS: atenoloL 25 MG TAB PO SCH (09:53)
[2020-08-05] MEDS: amLODIPine 10 MG TAB PO SCH (09:53)
[2020-08-05] MEDS: GABAPENTIN 300 MG CAP PO SCH (09:53)
[2020-08-05] MEDS: APIXABAN 5 MG TAB PO SCH (09:54)
[2020-08-05] MEDS: MULTIVITAMINS,THER W-MINERALS TAB PO SCH (09:55)
--- NOTE | 2020-08-05 11:36 | Progress Note ---
Assessment and Plan Acute hypoxic respiratory failure COPD exacerbation on home oxygen Morbid obesity Obstructive sleep apnea poor compliance with her CPAP at home Chronic hypertension Echocardiogram this presentation shows normal left ventricular systolic function with ejection fraction 55 to 60%. There is some dilatation of the right heart chambers, with at least moderate pulmonary hypertension with a pulmonary artery systolic pressure of 54. These right heart changes are consistent with her underlying chronic lung disease. Recommendations: Patient's presentation appears consistent with exacerbation of her chronic lung disease, defer to pulmonary management of obesity hypoventilation syndrome, COPD and obstructive sleep apnea. Conservative cardiac management. Will follow intermittently. Subjective Date of service: 08/05/20 Interval history: Patient complains of generalized pain. She has no cardiac complaints. Objective Vital Signs Temp Pulse Resp BP Pulse Ox 08/05/20 09:05 93 08/05/20 04:16 98.1 F 86 16 146/79 94 08/04/20 20:25 83 L 08/04/20 20:06 98.0 F 89 20 144/79 93 08/04/20 16:23 98.9 F 83 20 144/73 90 08/04/20 16:00 86 08/04/20 12:11 98.5 F 98 H 20 144/78 87 08/04/20 12:00 87 - Physical Examination General: No Apparent Distress, Other (severe obesity) HEENT: Positive: PERRL Neck: Positive: trachea midline Cardiac: Positive: Reg Rate and Rhythm Lungs: Positive: Decreased Breath Sounds Neuro: Positive: Grossly Intact - Labs and Meds Coagulation 08/05/20 Range/Units 04:35 PT 16.0 H (12.2-14.9) Sec. INR 1.30 H (0.87-1.13) CBC 08/05/20 Range/Units 04:35 WBC 8.3 (4.5-11.0) K/mm3 RBC 3.35 L (3.65-5.03) M/mm3 Hgb 9.6 L (10.1-14.3) gm/dl Hct 31.9 (30.3-42.9) % Plt Count 233 (140-440) K/mm3 Lymph # (Auto) 1.9 (1.2-5.4) K/mm3 [place] # (Auto) 0.8 (0.0-0.8) K/mm3 Eos # (Auto) 0.1 (0.0-0.4) K/mm3 Baso # (Auto) 0.0 (0.0-0.1) K/mm3 Comprehensive Metabolic Panel 08/05/20 Range/Units 04:35 Sodium 146 H (137-145) mmol/L Potassium 4.8 (3.6-5.0) mmol/L Chloride 99.7 (98-107) mmol/L Carbon Dioxide 38 H (22-30) mmol/L BUN 20 H (7-17) mg/dL Creatinine 1.5 H (0.6-1.2) mg/dL Glucose 85 (65-100) mg/dL Calcium 9.2 (8.4-10.2) mg/dL
--- NOTE | 2020-08-05 16:55 | Discharge Summary ---
Providers - Providers Date of Admission: 08/03/20 23:51 Date of discharge: 08/05/20 Attending physician: ALFREDO EMERSON 08/04/20 00:16 Consult to Physician [CONS] Routine Comment: Consulting Provider: MARQUITA FUENTES Physician Instructions: Reason For Exam: CHF Exacerbation 08/04/20 01:03 Consult to Wound/ET Nurse [CONS] Routine Reason For Exam: wound eval Primary care physician: DANIELA [facility] Condition: Stable Hospital course: Discharge diagnosis: -Acute on chronic hypoxic Respiratory failure: cont supplemental oxygen, pulse oximetry, NIPPV as clinically indicated, negative for COVID -Acute and chronic diastolic HEART FAILURE exacerbation: treat with diuretics, Echo last year showed preserved EF, Strict I/O, daily weight, supplemental oxygen, consulted Cardiology, input noted -CAROLANN (acute kidney injury), vasomotor nephropathy: Monitor UOP w shift, avoid nephrotoxic agents, BMP -Obesity hypoventilation syndrome: supplemental oxygen, CPAP at bedtime -LUZ MARINA, noncompliant with CPAP: counseling done -Noncompliance with diuretics: counseling done, -Extreme Morbid obesity, bmi 68: queen's counsel on weight reduction -Chronic Hypertension, cont home meds -- Leg wound, left We will place consult to wound care team for evaluation. Patient is also placed on empiric IV antibiotics. -- History of pulmonary embolism Patient admits that she has not been on anticoagulation for few weeks. We will resume anticoagulation. D-dimer elevated today. Patient unable to undergo CT angiogram in view of her size and renal function. --DVT prophylaxis Patient currently on anticoagulation. -- Full code status Disposition: [id number] HOME UNDER HOME [facility] Time spent for discharge: 34 minutes Core Measure Documentation - Palliative Care Palliative Care/ Comfort Measures: Not Applicable - Core Measures Any of the following diagnoses?: none Exam - Constitutional Vitals: Temp Pulse Resp BP Pulse Ox 97.0 F L 84 19 107/39 90 08/05/20 11:40 08/05/20 11:40 08/05/20 11:40 08/05/20 11:40 08/05/20 11:40 Plan Activity: advance as tolerated Weight Bearing Status: Weight Bear as Tolerated Diet: low fat, low salt Special Instructions: record daily weights, record daily BP diary, home oxygen via (3L n/c), home health RN (for wound care) Additional Instructions: BMP in one week. CPAP at bedtime. f/u at outpt wound care clinic Follow up with: EMMA SUAREZ MD [Primary Care Provider] - 3-5 Days CHASE JUÁREZ MD [Staff Physician] - 7 Days Prescriptions: amLODIPine 10 mg PO QDAY #30 tablet Apixaban [Eliquis] 5 mg PO Q12HR #60 tablet cephALEXin [Keflex] 500 mg PO Q6HR #20 capsule Furosemide [Lasix] 20 mg PO QDAY #30 tablet ALBUTEROL NEB's [Proventil 0.083% NEBS] 2.5 mg IH Q4HRT PRN #90 nebu PRN Reason: Shortness Of Breath atenoloL [Tenormin] 25 mg PO DAILY #120 tab
[2020-08-05 18:45] VITALS: BP 149/73
[2020-08-06] MEDS ORDERED: FUROSEMIDE 20 MG/2 ML INJ IV SCH (06:00)
== END 2020-08-05 20:30 | disposition home health service (06) ==
LOC: ED 19:54 → 4A 23:51 → 3A 08-04 18:44
PROVIDERS: ADMIT Internal Medicine Geriatric Medicine; ATTEND Internal Medicine
DX: J96.20 Acute and chronic respiratory failure, unspecified whether with hypoxia or hypercapnia (principal); Z20.828 Contact with and (suspected) exposure to other viral communicable diseases; I11.0 Hypertensive heart disease with heart failure; I50.9 Heart failure, unspecified; N17.9 Acute kidney failure, unspecified; S80.922A Unspecified superficial injury of left lower leg, initial encounter; J44.9 Chronic obstructive pulmonary disease, unspecified; M19.90 Unspecified osteoarthritis, unspecified site; E66.2 Morbid (severe) obesity with alveolar hypoventilation; Z68.45 Body mass index [BMI] 70 or greater, adult; Z86.711 Personal history of pulmonary embolism; Z87.891 Personal history of nicotine dependence; Z91.14 Patient's other noncompliance with medication regimen; X58.XXXA Exposure to other specified factors, initial encounter; Y93.89 Activity, other specified; Y92.89 Other specified places as the place of occurrence of the external cause; Y99.8 Other external cause status
CPT/HCPCS: 36415; 71045; 80048; 83880; 85025; 85379; 85610; 87641; 93005; 93306; 94760; 96365; 96366; 96375; 96376; 99285; G0378; J1940; J2270; J2543; U0003

== ENCOUNTER 2020-11-02 22:38 | Emergency (ER) | payer MEDICARE ==
--- NOTE | 2020-11-03 00:41 | XRay Report ---
CHEST - 1 VIEW INDICATION: GI bleed COMPARISON: 2 days prior FINDINGS: SUPPORT DEVICES: None. HEART: Stable cardiomediastinal silhouette. LUNGS/PLEURA: Persistent mild edema. ADDITIONAL FINDINGS: None. IMPRESSION: Stable cardiomegaly and mild edema. Signer Name: Norberto Moreno MD Signed: 11/03/2020 12:37 AM Workstation Name: [id number] [id number]
[2020-11-03 00:55] LABS: Basophils % (Auto) 0.2 % (0.0-1.8); Eosinophils # (Auto) 0.2 K/mm3 (0.0-0.4); Eosinophils % (Auto) 1.7 % (0.0-4.3); Hematocrit 35.2 % (30.3-42.9); Hemoglobin 11.1 gm/dl (10.1-14.3); Lymphocytes # (Auto) 2.3 K/mm3 (1.2-5.4); Lymphocytes % (Auto) 23.8 % (13.4-35.0); Mean Corpuscular HGB Conc 32 % (30-34); Mean Corpuscular Volume 89 fl (79-97); Monocytes # (Auto) 0.9 K/mm3 (0.0-0.8); Platelet Count 272 K/mm3 (140-440); Red Blood Count 3.95 M/mm3 (3.65-5.03); Red Cell Distribution Width 17.2 % (13.2-15.2)
[2020-11-03 01:14] LABS: Calcium 9.7 mg/dL (8.4-10.2)
[2020-11-03 01:59] LABS: INR 0.96 (0.87-1.13)
--- NOTE | 2020-11-03 06:32 | Emergency Department Report ---
HPI - General Chief Complaint: GI Bleed Time Seen by Provider: 11/03/20 06:02 - HPI HPI: This is a 59-year-old -[place] female who presents to the emergency department with a complaint of an episode of bright red blood per rectum with a bowel movement that occurred last night. She denies any abdominal pain, pelvic pain, back pain, fever, chest pain or shortness of breath, nausea, vomiting. Patient has a past medical history of arthritis, CHF, COPD on 3 L oxygen at home, hypertension and the patient is on Eliquis for history of PE. However, the patient says that she only takes half doses of the Eliquis. She contacted one of her primary care physicians who does home visits and she was told to come to the emergency department for further evaluation. The patient says that she used the bathroom in the emergency department and did not see any blood. She denies ever having any rectal bleeding previously. No recent travel or sick contacts at home. 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 She did not take anything for her symptoms prior to presentation. ED Past Medical Hx - Past Medical History Hx Hypertension: Yes Hx Congestive Heart Failure: Yes Hx Arthritis: Yes Hx COPD: Yes (3 L Home 02) Additional medical history: Abdominal hernia, severe obesity. neuropathy - Surgical History Past Surgical History?: Yes Additional Surgical History: gastric bypass-partial 2006. - Social History Smoking Status: Former Smoker - Medications Home Medications: Home Medications Medication Instructions Recorded Confirmed Last Taken Type Gabapentin 300 mg PO BID 05/19/19 05/19/19 Unknown History Multivit-Minerals/Folic Acid [One 0.4 mg PO DAILY 05/19/19 05/20/19 Unknown History Daily Womens 50 Plus Tab] ALBUTEROL NEB's [Proventil 0.083% 2.5 mg IH Q4HRT PRN #90 nebu 08/05/20 Unknown Rx NEBS] Apixaban [Eliquis] 5 mg PO Q12HR #60 tablet 08/05/20 Unknown Rx Furosemide [Lasix] 20 mg PO QDAY #30 tablet 08/05/20 Unknown Rx amLODIPine 10 mg PO QDAY #30 tablet 08/05/20 Unknown Rx atenoloL [Tenormin] 25 mg PO DAILY #120 tab 08/05/20 Unknown Rx cephALEXin [Keflex] 500 mg PO Q6HR #20 capsule 08/05/20 Unknown Rx ED Review of Systems ROS: Stated complaint: RECTAL BLEEDING Other details as noted in HPI Comment: All other systems reviewed and negative Constitutional: denies: chills, fever Eyes: denies: eye pain, vision change ENT: denies: ear pain, throat pain Respiratory: denies: cough, shortness of breath Cardiovascular: denies: chest pain, palpitations Gastrointestinal: hematochezia. denies: abdominal pain, vomiting, melena Genitourinary: denies: dysuria, discharge Musculoskeletal: denies: back pain, arthralgia Skin: denies: rash, lesions Neurological: denies: headache, weakness Physical Exam - Physical Exam Vital Signs: Vital Signs 11/02/20 11/03/20 11/03/20 23:46 05:24 05:30 Temperature 98.7 F Pulse Rate 84 68 Respiratory 18 19 Rate Blood Pressure 129/54 117/56 O2 Sat by Pulse 93 100 99 Oximetry Physical Exam: GENERAL: The patient is well-developed well-nourished. HENT: Normocephalic. Atraumatic. Patient has moist mucous membranes. EYES: Extraocular motions are intact. NECK: Supple. Trachea is midline. CHEST/LUNGS: Clear to auscultation. There is no respiratory distress noted. HEART/CARDIOVASCULAR: Regular. There is no tachycardia. There is no murmur. ABDOMEN: Abdomen is soft, nontender. Patient has normal bowel sounds. Obese habitus. SKIN: Skin is warm and dry. NEURO: The patient is awake, alert, and oriented. The patient is cooperative. The patient has no focal neurologic deficits. Normal speech. MUSCULOSKELETAL: There is no tenderness or deformity. There is no limitation range of motion. RECTAL: There is a nonthrombosed hemorrhoid at the 3 o'clock position. Brown stool obtained. No gross hematochezia or melena. ED Course Vital Signs 11/02/20 11/03/20 11/03/20 23:46 05:24 05:30 Temperature 98.7 F Pulse Rate 84 68 Respiratory 18 19 Rate Blood Pressure 129/54 117/56 O2 Sat by Pulse 93 100 99 Oximetry - Reevaluation(s) Reevaluation #1: 11/03/20 07:37 Rectal examination done with nurse Zuluaga at bedside. ED Medical Decision Making - Lab Data Result diagrams: 11/03/20 06:48 11/03/20 00:09 Lab Results 11/03/20 11/03/20 11/03/20 Range/Units 00:09 00:09 00:09 WBC 9.7 (4.5-11.0) K/mm3 RBC 3.95 (3.65-5.03) M/mm3 Hgb 11.1 (10.1-14.3) gm/dl Hct 35.2 (30.3-42.9) % MCV 89 (79-97) fl MCH 28 (28-32) pg MCHC 32 (30-34) % RDW 17.2 H (13.2-15.2) % Plt Count 272 (140-440) K/mm3 Lymph % (Auto) 23.8 (13.4-35.0) % [place] % (Auto) 9.0 H (0.0-7.3) % Eos % (Auto) 1.7 (0.0-4.3) % Baso % (Auto) 0.2 (0.0-1.8) % Lymph # (Auto) 2.3 (1.2-5.4) K/mm3 [place] # (Auto) 0.9 H (0.0-0.8) K/mm3 Eos # (Auto) 0.2 (0.0-0.4) K/mm3 Baso # (Auto) 0.0 (0.0-0.1) K/mm3 Seg Neutrophils % 65.3 (40.0-70.0) % Seg Neutrophils # 6.4 (1.8-7.7) K/mm3 PT 12.7 (12.2-14.9) Sec. INR 0.96 (0.87-1.13) Sodium 142 (137-145) mmol/L Potassium 4.5 (3.6-5.0) mmol/L Chloride 100.1 (98-107) mmol/L Carbon Dioxide 35 H (22-30) mmol/L Anion Gap 11 mmol/L BUN 18 H (7-17) mg/dL Creatinine 1.3 H (0.6-1.2) mg/dL Estimated GFR 51 ml/min BUN/Creatinine Ratio 14 % Glucose 94 (65-100) mg/dL Calcium 9.7 (8.4-10.2) mg/dL 11/03/20 Range/Units 06:48 WBC (4.5-11.0) K/mm3 RBC (3.65-5.03) M/mm3 Hgb 10.9 (10.1-14.3) gm/dl Hct 35.1 (30.3-42.9) % MCV (79-97) fl MCH (28-32) pg MCHC (30-34) % RDW (13.2-15.2) % Plt Count (140-440) K/mm3 Lymph % (Auto) (13.4-35.0) % [place] % (Auto) (0.0-7.3) % Eos % (Auto) (0.0-4.3) % Baso % (Auto) (0.0-1.8) % Lymph # (Auto) (1.2-5.4) K/mm3 [place] # (Auto) (0.0-0.8) K/mm3 Eos # (Auto) (0.0-0.4) K/mm3 Baso # (Auto) (0.0-0.1) K/mm3 Seg Neutrophils % (40.0-70.0) % Seg Neutrophils # (1.8-7.7) K/mm3 PT (12.2-14.9) Sec. INR (0.87-1.13) Sodium (137-145) mmol/L Potassium (3.6-5.0) mmol/L Chloride (98-107) mmol/L Carbon Dioxide (22-30) mmol/L Anion Gap mmol/L BUN (7-17) mg/dL Creatinine (0.6-1.2) mg/dL Estimated GFR ml/min BUN/Creatinine Ratio % Glucose (65-100) mg/dL Calcium (8.4-10.2) mg/dL - Radiology Data Radiology results: report reviewed CHEST - 1 VIEW INDICATION: GI bleed COMPARISON: 2 days prior FINDINGS: SUPPORT DEVICES: None. HEART: Stable cardiomediastinal silhouette. LUNGS/PLEURA: Persistent mild edema. ADDITIONAL FINDINGS: None. IMPRESSION: Stable cardiomegaly and mild edema. - Medical Decision Making This patient presents with the complaint of having 1 episode of bright red blood per rectum with a bowel movement that occurred late last night. On examination the patient does not appear in any acute distress. There is no tenderness to palpation of the abdomen which appears soft, nondistended and nontoxic in appearance. The patient's labs have been mostly unremarkable including a hemoglobin of 11.1. She does have some very mild renal insufficiency with a GFR of 51. A chaperoned rectal examination was done that shows a nonthrombosed hemorrhoid and a small amount of brown appearing stool was obtained. This was negative on guaiac testing. No gross hematochezia. No melena. A repeat hemoglobin was checked and was at 10.9, which shows that there was no significant decrease during this patient's 9-hour ED course. Vital signs reassuring throughout her ED course. She appears safe for discharge home at this time. She has been given an outpatient referral for gastroenterology as she may need a colonoscopy in the near future. Patient has been instructed to return to the emergency department with any worsening of her symptoms or with any acute distress. Critical Care Time: No Critical care attestation.: If time is entered above; I have spent that time in minutes in the direct care of this critically ill patient, excluding procedure time. ED Disposition Clinical Impression: Rectal bleeding, Mild renal insufficiency Disposition: DC-01 TO HOME OR SELFCARE Is pt being admited?: No Condition: Stable Instructions: Rectal Bleeding Additional Instructions: Please follow-up with your primary care physician in the next few days. I am giving you a referral for [facility] to follow-up regarding the rectal bleeding. You may need a colonoscopy in the near future. Return to the emergency department with any worsening of your symptoms, new or concerning symptoms not addressed during this current emergency department vi sit, or with any acute distress. Referrals: LUDIVINA BERTRAND MD [Primary Care Provider] - 2-3 Days [facility] [Provider Group] - 2-3 Days Time of Disposition: 07:24
[2020-11-03 07:08] LABS: Hematocrit 35.1 % (30.3-42.9); Hemoglobin 10.9 gm/dl (10.1-14.3)
[2020-11-03 11:55] VITALS: BP 145/84
--- NOTE | 2020-11-04 09:33 | Electrocardiograph Report ---
[facility] Test Date: 2020-11-03 Test Time: 00:13:29 Pat Name: MICAH DUARTE Department: Room: Gender: F Caseworker Intake: TRACIE : 1960 Requested By: ALANIS FRANKLIN Order Number: [id number] Reading MD: Damian Nelson Measurements Intervals [place] Rate: 79 P: 49 MI: 202 QRS: 95 QRSD: 95 T: 77 QT: 362 QTc: 414 Interpretive Statements Sinus rhythm Probable left atrial enlargement Probable lateral infarct, age indeterminate No previous ECG available for comparison Electronically Signed On 11-04-2020 9:33:38 EDT by Damian Nelson
== END 2020-11-03 10:00 | disposition home or self-care (01) ==
LOC: ED 22:38
DX: K62.5 Hemorrhage of anus and rectum (principal); N28.9 Disorder of kidney and ureter, unspecified; J44.9 Chronic obstructive pulmonary disease, unspecified; I11.0 Hypertensive heart disease with heart failure; I50.9 Heart failure, unspecified; M19.90 Unspecified osteoarthritis, unspecified site; E66.9 Obesity, unspecified; Z68.44 Body mass index [BMI] 60.0-69.9, adult; Z91.012 Allergy to eggs; Z79.899 Other long term (current) drug therapy; Z87.891 Personal history of nicotine dependence; Z98.890 Other specified postprocedural states
CPT/HCPCS: 36415; 71045; 80048; 85014; 85018; 85025; 85610; 93005

== ENCOUNTER 2022-01-28 11:37 | Inpatient (IN) | payer MEDICARE ==
[2022-01-28] MEDS ORDERED: ASPIRIN 81 MG TAB CHEW PO ONE (12:02)
--- NOTE | 2022-01-28 12:02 | Emergency Department Report ---
ED Chest Pain HPI - General Stated Complaint: chest pian, headache Time Seen by Provider: 01/28/22 11:57 Source: patient, EMS Mode of arrival: Stretcher - History of Present Illness Initial Comments: Patient is a 61-year-old female with history of morbid obesity, CHF, COPD and hypertension presenting to ED via EMS with complaint of chest pain, shortness of breath, diarrhea and headache. States her chest pain has been present for the past several days. She is on home oxygen at 4 to 5 L at baseline with sats in the high 80s to low 90s. - Related Data Home Medications Medication Instructions Recorded Confirmed Last Taken Gabapentin 300 mg PO BID 05/19/19 03/12/21 Unknown Multivit-Minerals/Folic Acid [One 0.4 mg PO DAILY 05/19/19 03/12/21 Unknown Daily Womens 50 Plus Tab] Previous Rx's Medication Instructions Recorded Last Taken Type ALBUTEROL NEB's [Proventil 0.083% 2.5 mg IH Q4HRT PRN #90 nebu 08/05/20 Unknown Rx NEBS] Furosemide [Lasix TAB] 20 mg PO QDAY #30 tablet 08/05/20 Unknown Rx amLODIPine 10 mg PO QDAY #30 tablet 08/05/20 Unknown Rx atenoloL [Tenormin] 25 mg PO DAILY #120 tab 08/05/20 Unknown Rx cephALEXin [Keflex] 500 mg PO Q6HR #20 capsule 08/05/20 Unknown Rx Amiodarone [Cordarone 200 MG TAB] 200 mg PO QDAY #30 tablet 03/23/21 Unknown Rx Apixaban [Eliquis] 5 mg PO Q12HR #60 tablet 03/23/21 Unknown Rx Ascorbic Acid [Vitamin C] 500 mg PO BID #30 tablet 03/23/21 Unknown Rx Aspirin [Aspirin BABY CHEW TAB] 81 mg PO QDAY #30 tab.chew 03/23/21 Unknown Rx AtorvaSTATin [Lipitor] 40 mg PO QHS #30 tablet 03/23/21 Unknown Rx Famotidine [Pepcid] 20 mg PO BID #60 tablet 03/23/21 Unknown Rx Zinc Sulfate 220 mg PO BID #30 capsule 03/23/21 Unknown Rx dilTIAZem CD [Cardizem CD] 120 mg PO QDAY #30 capsule 03/23/21 Unknown Rx traMADoL [Ultram 50 MG tab] 50 mg PO Q6H PRN #20 tablet 03/23/21 Unknown Rx Allergies Allergy/AdvReac Type Severity Reaction Status Date / Time egg AdvReac Severe Hives Verified 01/28/22 13:08 Heart Score - HEART Score History: Slightly suspicious EKG: Normal Age: 45-65 Risk factors: 1-2 risk factors Troponin: < normal limit HEART Score: 2 - EKG Read Time Time EKG Completed: 12:59 EKG Read Time: 13:04 - Critical Actions Critical Actions: 0-3 pts:0.9-1.7%risk of adverse cardiac event.Candidate for discharge ED Review of Systems ROS: Stated complaint: chest pian, headache Other details as noted in HPI Constitutional: denies: chills, fever Respiratory: shortness of breath, SOB with exertion, SOB at rest Cardiovascular: chest pain Gastrointestinal: diarrhea. denies: abdominal pain, nausea Genitourinary: denies: urgency, dysuria, discharge Musculoskeletal: denies: back pain, joint swelling, arthralgia Skin: denies: rash, lesions Neurological: as per HPI ED Past Medical Hx - Past Medical History Hx Hypertension: Yes Hx Congestive Heart Failure: Yes Hx Pulmonary Embolism: Yes Hx Arthritis: Yes Hx COPD: Yes Additional medical history: Abdominal hernia, severe obesity. neuropathy - Surgical History Additional Surgical History: gastric bypass-partial 2006. - Social History Smoking Status: Former Smoker - Medications Home Medications: Home Medications Medication Instructions Recorded Confirmed Last Taken Type Gabapentin 300 mg PO BID 05/19/19 03/12/21 Unknown History Multivit-Minerals/Folic Acid [One 0.4 mg PO DAILY 05/19/19 03/12/21 Unknown History Daily Womens 50 Plus Tab] ALBUTEROL NEB's [Proventil 0.083% 2.5 mg IH Q4HRT PRN #90 nebu 08/05/20 03/12/21 Unknown Rx NEBS] Furosemide [Lasix TAB] 20 mg PO QDAY #30 tablet 08/05/20 03/12/21 Unknown Rx amLODIPine 10 mg PO QDAY #30 tablet 08/05/20 03/12/21 Unknown Rx atenoloL [Tenormin] 25 mg PO DAILY #120 tab 08/05/20 03/12/21 Unknown Rx cephALEXin [Keflex] 500 mg PO Q6HR #20 capsule 08/05/20 03/12/21 Unknown Rx Amiodarone [Cordarone 200 MG TAB] 200 mg PO QDAY #30 tablet 03/23/21 Unknown Rx Apixaban [Eliquis] 5 mg PO Q12HR #60 tablet 03/23/21 Unknown Rx Ascorbic Acid [Vitamin C] 500 mg PO BID #30 tablet 03/23/21 Unknown Rx Aspirin [Aspirin BABY CHEW TAB] 81 mg PO QDAY #30 tab.chew 03/23/21 Unknown Rx AtorvaSTATin [Lipitor] 40 mg PO QHS #30 tablet 03/23/21 Unknown Rx Famotidine [Pepcid] 20 mg PO BID #60 tablet 03/23/21 Unknown Rx Zinc Sulfate 220 mg PO BID #30 capsule 03/23/21 Unknown Rx dilTIAZem CD [Cardizem CD] 120 mg PO QDAY #30 capsule 03/23/21 Unknown Rx traMADoL [Ultram 50 MG tab] 50 mg PO Q6H PRN #20 tablet 03/23/21 Unknown Rx ED Physical Exam - General General appearance: alert, in no apparent distress, obese - Head Head exam: Present: atraumatic, normocephalic - Respiratory Respiratory exam: Present: normal lung sounds bilaterally. Absent: respiratory distress - Cardiovascular Cardiovascular Exam: Present: regular rate, normal rhythm, other (Diminished breath sounds due to body habitus) - GI/Abdominal GI/Abdominal exam: Present: soft. Absent: distended, tenderness - Rectal Rectal exam: Present: deferred - Neurological Exam Neurological exam: Present: alert, oriented X3 - Psychiatric Psychiatric exam: Present: normal affect, normal mood - Skin Skin exam: Present: warm, dry, intact, other (Venous stasis dermatitis to both lower legs) ED Course Vital Signs 01/28/22 01/28/22 01/28/22 12:33 12:45 13:01 Pulse Rate 80 78 Respiratory 15 32 H 18 Rate Blood Pressure 159/74 151/82 O2 Sat by Pulse 96 95 Oximetry ED Medical Decision Making - Lab Data Result diagrams: 01/28/22 12:43 01/28/22 12:43 - Medical Decision Making Labs reviewed. Potassium 5.1, creatinine 1.6. Troponin within normal limits. Chest x-ray shows cardiomegaly with pulmonary edema. Patient given IV Lasix. No acute ischemic findings on EKG. Will admit for likely CHF exacerbation. Critical care attestation.: If time is entered above; I have spent that time in minutes in the direct care of this critically ill patient, excluding procedure time. ED Disposition Clinical Impression: CHF exacerbation Disposition: 09 ADMITTED INPATIENT Is pt being admited?: Yes Condition: Stable
[2022-01-28] MEDS ORDERED: ACETAMINOPHEN 325 MG TAB PO ONE (12:03)
--- NOTE | 2022-01-28 12:50 | XRay Report ---
CHEST 1 VIEW 01/28/2022 11:24 AM INDICATION / CLINICAL INFORMATION: Chest Pain. COMPARISON: 03/22/2021 FINDINGS: SUPPORT DEVICES: None. HEART / MEDIASTINUM: There is prominence of the cardiac silhouette LUNGS / PLEURA: There is venous congestion. There are increased interstitial markings bilaterally. Th ere is more focal increased density in the perihilar region. No pneumothorax. ADDITIONAL FINDINGS: No significant additional findings. IMPRESSION: 1. Findings are most characteristic of congestive heart failure with venous congestion, pulmonary sapna ma and enlargement of the cardiac silhouette. Signer Name: Kyle Dean MD Signed: 01/28/2022 12:45 PM Workstation Name: [id number]
[2022-01-28 13:01] LABS: Basophils % (Auto) 0.5 % (0.0-1.8); Eosinophils # (Auto) 0.1 K/mm3 (0.0-0.4); Hematocrit 28.8 % (30.3-42.9); Hemoglobin 8.8 gm/dl (10.1-14.3); Lymphocytes % (Auto) 14.5 % (13.4-35.0); Mean Corpuscular HGB Conc 30 % (30-34); Mean Corpuscular Volume 88 fl (79-97); Monocytes # (Auto) 0.6 K/mm3 (0.0-0.8); Monocytes % (Auto) 9.2 % (0.0-7.3); Platelet Count 186 K/mm3 (140-440); Red Blood Count 3.27 M/mm3 (3.65-5.03)
[2022-01-28 13:26] LABS: Albumin 3.2 g/dL (3.9-5); Calcium 9.7 mg/dL (8.4-10.2)
[2022-01-28] MEDS ORDERED: FUROSEMIDE 40 MG/4 ML INJ IV ONE (13:31)
[2022-01-28] MEDS ORDERED: ALBUTEROL 2.5 MG/3 ML NEBU IH PRN (18:12)
[2022-01-28] MEDS ORDERED: ONDANSETRON 4 MG/2 ML INJ IV PRN (18:16)
[2022-01-28] MEDS ORDERED: ACETAMINOPHEN 325 MG TAB PO PRN (18:16)
[2022-01-28] MEDS ORDERED: IPRATROPIUM/ALBUTEROL SULFATE 3 ML AMPUL.NEB IH PRN (18:45)
[2022-01-28] MEDS ORDERED: SPIRONOLACTONE 25 MG TAB PO ONE ×2 (18:47→18:55)
--- NOTE | 2022-01-28 18:56 | History and Physical Report ---
History of Present Illness Date of examination: 01/28/22 Date of admission: 01/28/2022 Chief complaint: Increasing shortness of breath for the last few days History of present illness: 64-year-old female with morbid obesity-current BMI of 17.7 and weighing about 400 pounds on home oxygen up to 4 L nasal cannula comes in for shortness of breath chest pain, headache and diarrhea. Patient states that she has been short of breath for last couple years and her oxygen levels usually run around 85-90. She has been able to walk to the restroom and ADLs till 1 month ago. Now she is nearly bedridden. Uses bedside commode. No fever or chills. Patient is very hypoxic in the emergency room with oxygen at low 80s. Patient is supposed to be on CPAP at home for obstructive sleep apnea but does not use because of inconvenience - Past Medical History -- Hypertension: Yes --Congestive Heart Failure: Yes --Pulmonary Embolism: Yes --Arthritis: Yes --COPD: Yes --Additional medical history: Abdominal hernia, severe obesity. neuropathy - Surgical History --Additional Surgical History: gastric bypass-partial 2006. - Social History --Smoking Status: Former Smoker - Medications Home Medications: Home Medications Medication Instructions Recorded Confirmed Last Taken Type Gabapentin 300 mg PO BID 05/19/19 03/12/21 Unknown History Multivit-Minerals/Folic Acid [One 0.4 mg PO DAILY 05/19/19 03/12/21 Unknown History Daily Womens 50 Plus Tab] ALBUTEROL NEB's [Proventil 0.083% 2.5 mg IH Q4HRT PRN #90 nebu 08/05/20 03/12/21 Unknown Rx NEBS] Furosemide [Lasix TAB] 20 mg PO QDAY #30 tablet 08/05/20 03/12/21 Unknown Rx amLODIPine 10 mg PO QDAY #30 tablet 08/05/20 03/12/21 Unknown Rx atenoloL [Tenormin] 25 mg PO DAILY #120 tab 08/05/20 03/12/21 Unknown Rx cephALEXin [Keflex] 500 mg PO Q6HR #20 capsule 08/05/20 03/12/21 Unknown Rx Amiodarone [Cordarone 200 MG TAB] 200 mg PO QDAY #30 tablet 03/23/21 Unknown Rx Apixaban [Eliquis] 5 mg PO Q12HR #60 tablet 03/23/21 Unknown Rx Ascorbic Acid [Vitamin C] 500 mg PO BID #30 tablet 03/23/21 Unknown Rx Aspirin [Aspirin BABY CHEW TAB] 81 mg PO QDAY #30 tab.chew 03/23/21 Unknown Rx AtorvaSTATin [Lipitor] 40 mg PO QHS #30 tablet 03/23/21 Unknown Rx Famotidine [Pepcid] 20 mg PO BID #60 tablet 03/23/21 Unknown Rx Zinc Sulfate 220 mg PO BID #30 capsule 03/23/21 Unknown Rx dilTIAZem CD [Cardizem CD] 120 mg PO QDAY #30 capsule 03/23/21 Unknown Rx traMADoL [Ultram 50 MG tab] 50 mg PO Q6H PRN #20 tablet 03/23/21 Unknown Rx Review of Systems ROS: Stated complaint: chest pian, headache Other details as noted in HPI Constitutional: denies: chills, fever Respiratory: shortness of breath, SOB with exertion, SOB at rest Cardiovascular: chest pain Gastrointestinal: diarrhea. denies: abdominal pain, nausea Genitourinary: denies: urgency, dysuria, discharge Musculoskeletal: denies: back pain, joint swelling, arthralgia Skin: denies: rash, lesions Neurological: as per HPI Medications and Allergies Allergies Allergy/AdvReac Type Severity Reaction Status Date / Time levofloxacin [From Levaquin] Allergy Itching Verified 01/28/22 21:50 egg AdvReac Severe Hives Verified 01/28/22 13:08 Home Medications Medication Instructions Recorded Confirmed Last Taken Type Gabapentin 300 mg PO BID 05/19/19 03/12/21 Unknown History Multivit-Minerals/Folic Acid [One 0.4 mg PO DAILY 05/19/19 03/12/21 Unknown History Daily Womens 50 Plus Tab] ALBUTEROL NEB's [Proventil 0.083% 2.5 mg IH Q4HRT PRN #90 nebu 08/05/20 03/12/21 Unknown Rx NEBS] Furosemide [Lasix TAB] 20 mg PO QDAY #30 tablet 08/05/20 03/12/21 Unknown Rx amLODIPine 10 mg PO QDAY #30 tablet 08/05/20 03/12/21 Unknown Rx atenoloL [Tenormin] 25 mg PO DAILY #120 tab 08/05/20 03/12/21 Unknown Rx cephALEXin [Keflex] 500 mg PO Q6HR #20 capsule 08/05/20 03/12/21 Unknown Rx Amiodarone [Cordarone 200 MG TAB] 200 mg PO QDAY #30 tablet 03/23/21 Unknown Rx Apixaban [Eliquis] 5 mg PO Q12HR #60 tablet 03/23/21 Unknown Rx Ascorbic Acid [Vitamin C] 500 mg PO BID #30 tablet 03/23/21 Unknown Rx Aspirin [Aspirin BABY CHEW TAB] 81 mg PO QDAY #30 tab.chew 03/23/21 Unknown Rx AtorvaSTATin [Lipitor] 40 mg PO QHS #30 tablet 03/23/21 Unknown Rx Famotidine [Pepcid] 20 mg PO BID #60 tablet 03/23/21 Unknown Rx Zinc Sulfate 220 mg PO BID #30 capsule 03/23/21 Unknown Rx dilTIAZem CD [Cardizem CD] 120 mg PO QDAY #30 capsule 03/23/21 Unknown Rx traMADoL [Ultram 50 MG tab] 50 mg PO Q6H PRN #20 tablet 03/23/21 Unknown Rx Exam - Constitutional Vitals: Temp Pulse Resp BP Pulse Ox 98.4 F 63 22 131/77 94 01/28/22 16:56 01/28/22 17:45 01/28/22 17:45 01/28/22 17:45 01/28/22 17:45 General appearance: Present: severe distress, well-nourished, other (Morbidly obese) - EENT Eyes: Present: PERRL ENT: hearing intact, clear oral mucosa - Neck Neck: Present: supple, normal ROM - Respiratory Respiratory effort: normal Respiratory: bilateral: CTA, rhonchi (Scattered) - Cardiovascular Heart rate: 114 Rhythm: regular Heart Sounds: Present: S1 & S2. Absent: rub, click - Extremities Extremities: pulses symmetrical, No edema Peripheral Pulses: within normal limits - Abdominal General gastrointestinal: Present: soft, non-tender, non-distended, normal bowel sounds Female genitourinary: Present: normal - Integumentary Integumentary: Present: clear, warm, dry - Musculoskeletal Musculoskeletal: gait normal, strength equal bilaterally - Psychiatric Psychiatric: appropriate mood/affect, intact judgment & insight - Neurologic Neurologic: CNII-XII intact, moves all extremities HEART Score - HEART Score History: Moderately suspicious EKG: Normal Age: 45-65 Risk factors: > 3 risk factors or hx of atherosclerotic disease Troponin: Troponin T 0.011 ng/mL (0.00-0.029) 01/28/22 12:43 Troponin: < normal limit HEART Score: 4 Results - Labs CBC & Chem 7: 01/29/22 04:35 01/29/22 04:35 Labs: Laboratory Last Values WBC 6.5 K/mm3 (4.5-11.0) 01/28/22 12:43 RBC 3.27 M/mm3 (3.65-5.03) L 01/28/22 12:43 Hgb 8.8 gm/dl (10.1-14.3) L 01/28/22 12:43 Hct 28.8 % (30.3-42.9) L 01/28/22 12:43 MCV 88 fl (79-97) 01/28/22 12:43 MCH 27 pg (28-32) L 01/28/22 12:43 MCHC 30 % (30-34) 01/28/22 12:43 RDW 18.0 % (13.2-15.2) H 01/28/22 12:43 Plt Count 186 K/mm3 (140-440) 01/28/22 12:43 Lymph % (Auto) 14.5 % (13.4-35.0) 01/28/22 12:43 [place] % (Auto) 9.2 % (0.0-7.3) H 01/28/22 12:43 Eos % (Auto) 2.0 % (0.0-4.3) 01/28/22 12:43 Baso % (Auto) 0.5 % (0.0-1.8) 01/28/22 12:43 Lymph # (Auto) 1.0 K/mm3 (1.2-5.4) L 01/28/22 12:43 [place] # (Auto) 0.6 K/mm3 (0.0-0.8) 01/28/22 12:43 Eos # (Auto) 0.1 K/mm3 (0.0-0.4) 01/28/22 12:43 Baso # (Auto) 0.0 K/mm3 (0.0-0.1) 01/28/22 12:43 Seg Neutrophils % 73.8 % (40.0-70.0) H 01/28/22 12:43 Seg Neutrophils # 4.8 K/mm3 (1.8-7.7) 01/28/22 12:43 Sodium 143 mmol/L (137-145) 01/28/22 12:43 Potassium 5.1 mmol/L (3.6-5.0) H 01/28/22 12:43 Chloride 99.8 mmol/L (98-107) 01/28/22 12:43 Carbon Dioxide 38 mmol/L (22-30) H 01/28/22 12:43 Anion Gap 10 mmol/L 01/28/22 12:43 BUN 20 mg/dL (7-17) H 01/28/22 12:43 Creatinine 1.6 mg/dL (0.6-1.2) H 01/28/22 12:43 Estimated GFR 40 ml/min 01/28/22 12:43 BUN/Creatinine Ratio 13 % 01/28/22 12:43 Glucose 84 mg/dL (65-100) 01/28/22 12:43 Calcium 9.7 mg/dL (8.4-10.2) 01/28/22 12:43 Total Bilirubin 0.50 mg/dL (0.1-1.2) 01/28/22 12:43 AST 17 units/L (5-40) 01/28/22 12:43 ALT 9 units/L (7-56) 01/28/22 12:43 Alkaline Phosphatase 104 units/L (35-129) 01/28/22 12:43 Troponin T 0.011 ng/mL (0.00-0.029) 01/28/22 12:43 NT-Pro-B Natriuret Pep 1347 pg/mL (0-900) H 01/28/22 12:43 Total Protein 7.9 g/dL (6.3-8.2) 01/28/22 12:43 Albumin 3.2 g/dL (3.9-5) L 01/28/22 12:43 Albumin/Globulin Ratio 0.7 % 01/28/22 12:43 Short CBC 01/28/22 01/28/22 01/29/22 Range/Units 12:43 18:56 04:35 WBC 6.5 6.0 5.7 (4.5-11.0) K/mm3 Hgb 8.8 L 8.8 L 9.7 L (10.1-14.3) gm/dl Hct 28.8 L 29.4 L 33.3 (30.3-42.9) % Plt Count 186 195 214 (140-440) K/mm3 BMP 01/28/22 01/28/22 01/29/22 12:43 18:56 04:35 Sodium 143 143 Potassium 5.1 H 5.6 H Chloride 99.8 98.1 Carbon Dioxide 38 H 36 H BUN 20 H 21 H Creatinine 1.6 H 1.6 H 1.6 H Glucose 84 109 H Calcium 9.7 10.2 Cardiac Enzymes 01/28/22 Range/Units 12:43 Troponin T 0.011 (0.00-0.029) ng/mL Liver Function 01/28/22 01/29/22 Range/Units 12:43 04:35 Total Bilirubin 0.50 0.60 (0.1-1.2) mg/dL AST 17 14 (5-40) units/L ALT 9 9 (7-56) units/L Alkaline Phosphatase 104 117 (35-129) units/L Albumin 3.2 L 3.3 L (3.9-5) g/dL - Imaging and Cardiology EKG: report reviewed (And his rhythm, heart rate of 72, probable left atrial enlargement) Imaging and Cardiology: Chest x-ray Findings are most Congestive heart failure with venous congestion, pulmonary edema and enlargement of the cardiac silhouette Assessment and Plan Assessment and plan: Critical care statement The high probability OF a clinically significant sudden or life-threatening deterioration of the cardiorespiratory system and endocrine system required my full and direct attention, intervention and postoperative management. The aggregate critical care time was 40 minutes. The time is in addition to time spent performing reported procedures but includes the followin: Data review and interpretation 2: Patient assessment and monitoring of vital signs 3: Documentation 4:: Medication orders and management Advance Directives: Yes (Full code) VTE prophylaxis?: Chemical Plan of care discussed with patient/family: Yes - Patient Problems (1) Acute respiratory failure with hypoxia Current Visit: Yes Status: Acute Plan to address problem: Patient is on 6 L nasal cannula oxygen Initial saturations were in the mid 80s BiPAP/CPAP as necessary (2) Acute exacerbation of CHF (congestive heart failure) Current Visit: Yes Status: Acute Qualifiers: Heart failure type: unspecified Qualified Code(s): I50.9 - Heart failure, unspecified Plan to address problem: Echocardiogram for ejection fraction, wall motion abnormalities and valve function Patient has pulmonary vascular congestion Daily weights Daily intake output cardiology consult IV Lasix twice a day at 40 mg Aldactone 50 mg once a day--once hyperkalemia is resolved (3) Hypoventilation Current Visit: Yes Status: Chronic Plan to address problem: Secondary to morbid obesity--pickwickian syndrome (4) Atypical chest pain Current Visit: Yes Status: Acute Plan to address problem: Serial troponins No Lexiscan was ordered Cardiology consult for CHF Before stress test decision to cardiology (5) Hypertension Current Visit: Yes Status: Chronic Qualifiers: Hypertension type: primary hypertension Qualified Code(s): I10 - Essential (primary) hypertension Plan to address problem: Continue antihypertensives and adjust medications as necessary (6) Morbid obesity Current Visit: Yes Status: Chronic Plan to address problem: Needs counseling and bariatric surgery follow-up appointments with bariatric surgery department in the [facility] (7) Hyperkalemia Current Visit: Yes Status: Acute Plan to address problem: Mild IV calcium gluconate (8) DVT prophylaxis Current Visit: Yes Status: Acute Plan to address problem: On anticoagulation GI prophylaxis (9) Advance care planning Current Visit: Yes Status: Acute Plan to address problem: Disease education conducted, care plan discussed, diagnosis discussed, prognosis discussed. Patient acknowledged understanding and agrees with care plan. +30 minutes.
[2022-01-28] MEDS ORDERED: FUROSEMIDE 20 MG TAB PO SCH (19:00)
[2022-01-28 19:10] LABS: Hematocrit 29.4 % (30.3-42.9); Hemoglobin 8.8 gm/dl (10.1-14.3); Mean Corpuscular HGB Conc 30 % (30-34); Mean Corpuscular Volume 89 fl (79-97); Platelet Count 195 K/mm3 (140-440); Red Blood Count 3.32 M/mm3 (3.65-5.03); Red Cell Distribution Width 17.7 % (13.2-15.2)
[2022-01-28 19:25] LABS: INR 1.13 (0.87-1.13)
[2022-01-28 19:26] LABS: Partial Thromboplastin Time 33.9 Sec. (24.2-36.6)
[2022-01-28] MEDS ORDERED: SPIRONOLACTONE 50 MG TAB PO ONE (20:00)
[2022-01-28] MEDS: amLODIPine 10 MG TAB PO SCH (20:02)
[2022-01-28] MEDS: dilTIAZem CD 120 MG CAP PO SCH (20:15)
[2022-01-28] MEDS: ASPIRIN 81 MG TAB CHEW PO SCH (20:15)
[2022-01-28] MEDS: AMIODARONE 200 MG TAB PO SCH (20:16)
[2022-01-28] MEDS: atenoloL 25 MG TAB PO SCH (20:16)
[2022-01-28] MEDS: diphenhydrAMINE 50 MG/ML VIAL IV PRN (21:05)
[2022-01-28] MEDS: APIXABAN 5 MG TAB PO SCH (21:44)
[2022-01-28] MEDS: ASCORBIC ACID 500 MG TAB PO SCH (21:44)
[2022-01-28] MEDS: FAMOTIDINE 20 MG TAB PO SCH (21:44)
[2022-01-28] MEDS: GABAPENTIN 300 MG CAP PO SCH (21:44)
[2022-01-28] MEDS: IPRATROPIUM/ALBUTEROL SULFATE 3 ML AMPUL.NEB IH SCH (21:45)
[2022-01-28] MEDS: ZINC SULFATE 220 MG CAP PO SCH (21:45)
[2022-01-28] MEDS: methylPREDNISolone Sod Succinate 125 MG/2 ML INJ IV SCH (21:45)
[2022-01-28] MEDS ORDERED: NON-FORMULARY EACH (Apixaban 5 MG Tablet) PO SCH (22:00)
[2022-01-29 04:50] LABS: Mean Corpuscular HGB Conc 29 % (30-34); Mean Corpuscular Volume 90 fl (79-97); Platelet Count 214 K/mm3 (140-440); Red Blood Count 3.69 M/mm3 (3.65-5.03)
[2022-01-29 05:08] LABS: Hematocrit 33.3 % (30.3-42.9); Hemoglobin 9.7 gm/dl (10.1-14.3)
[2022-01-29 05:12] LABS: Albumin 3.3 g/dL (3.9-5); Calcium 10.2 mg/dL (8.4-10.2)
[2022-01-29 05:46] LABS: Anisocytosis 1+; Basophils % (Manual) 0 % (0.0-1.8); Eosinophils % (Manual) 0 % (0.0-4.3); Platelet Estimate Consistent w Auto; Total Cells Counted 100
[2022-01-29] MEDS: FUROSEMIDE 40 MG/4 ML INJ IV SCH ×2 (06:04→17:18)
[2022-01-29] MEDS: methylPREDNISolone Sod Succinate 125 MG/2 ML INJ IV SCH ×3 (06:04→21:00)
[2022-01-29] MEDS: IPRATROPIUM/ALBUTEROL SULFATE 3 ML AMPUL.NEB IH SCH ×3 (08:16→21:32)
[2022-01-29] MEDS ORDERED: CALCIUM GLUCONATE 2,000 MG in SODIUM CHLORIDE 0.9% 100 ML IV ONE (08:30)
--- NOTE | 2022-01-29 08:42 | Progress Note ---
Assessment and Plan Assessment and plan: History of present illness: 64-year-old female with morbid obesity-current BMI of 70.7 and weighing about 400 pounds on home oxygen up to 4 L nasal cannula comes in for shortness of breath chest pain, headache and diarrhea. Patient states that she has been short of breath for last couple years and her oxygen levels usually run around 85-90. She has been able to walk to the restroom and ADLs till 1 month ago. Now she is nearly bedridden. Uses bedside commode. No fever or chills. Patient is very hypoxic in the emergency room with oxygen at low 80s. Patient is supposed to be on CPAP at home for obstructive sleep apnea but does not use because of inconvenience. Hospital Course: 01/29: elevated BP this Am. restarted home medications, added hydralazine for BP optimization. Continue diuresis with lasix 40 IV BID. Patient requested to be DNR/AND. Paper work signed and status updated in chart. Follow kidney fx on serial bmp. Can likely be downgraded to floor tomorrow. Patient is bedbound due to morbid obesity, family having trouble supporting her at home. CM/SW consulted for assistance. Assessment and Plan: #Acute respiratory failure with hypoxia Currently on supplemental oxygen 5 L/min Suspect this is heart failure and OHS related Diuresis as outlined below -Continue afterload reduction and diuresis Pulmonary consultation #Acute decompensated heart failure #Atypical chest pain - BNP: 1347 - CXR findings consistent with pulmonary edema from congestive heart failure -ECHO ordered -daily weights -I/O's -Lasix IV BID -Cardiology Consultation #Obesity hypoventilation syndrome Elevated BMI, recommend BiPAP nightly #Paroxysmal atrial fibrillation -Continue home diltiazem and Eliquis #Essential hypertension -Amlodipine, atenolol, Lasix Added hydralazine 100 mg p.o. 3 times daily #Hyperkalemia 5.5, administered IV calcium gluconate on admission Suspect this is Aldactone related, hold Aldactone for that at this time No indication for Kayexalate at this time however may need if potassium keeps increasing Trend on serial BMP #Acute kidney injury due to vasomotor nephropathy - Admission Cr: 1.6, Baseline Cr: 1.21.6 - etiology: Possibly medication related - avoid nephrotoxic agents - monitor I/O's - renal adjust medications - daily renal profile #Morbid Obesity - BMI 70.7 - Counseled patient on the importance of weight loss, incorporating exercise, and dietary changes (lean meats, fresh fruits and vegetables, and water intake). Patient expresses understanding. - Time: +15 min The high probability of a clinically significant, sudden or life threatening deterioration of the [multi] system(s) required my full and direct attention, intervention and personal management. The aggregate critical care time was [60] minutes. This time is in addition to time spent performing reported procedures but includes the following: [x] Data Review and interpretation [x] Patient assessment and monitoring of vital signs [x] Documentation [x] Medication orders and management History Interval history: Patient seen and examined at bedside encounter. She was not in any distress on my examination. She requested to be a DNR/AND. Paperword signed and status updated in chart. Hospitalist Physical - Physical exam Narrative exam: Physical Exam: VITAL SIGNS: Reviewed. GENERAL: The patient appears normally developed, Vital signs as documented. Morbidly obese HEAD: No signs of head trauma. EYES: Pupils are equal. Extraocular motions intact. EARS: Hearing grossly intact. MOUTH: Oropharynx is normal. NECK: No adenopathy, no JVD. CHEST: Poor air movement. Currently on supplemental oxygen CARDIAC: Regular rate and rhythm. S1 and S2, without murmurs, gallops, or rubs. VASCULAR: Lower extremity edema ABDOMEN: Soft, non tender. Some distention suspect anasarca MUSCULOSKELETAL: Good range of motion of all major joints. Extremities without clubbing, cyanosis or edema. NEUROLOGIC EXAM: Alert and oriented x 4. no focal sensory or strength deficits. PSYCHIATRIC: Mood normal. SKIN: detail exam as documented in skin assessment - Constitutional Vitals: Temp Pulse Resp BP Pulse Ox 97.8 F 73 16 184/97 90 01/29/22 07:51 01/29/22 07:31 01/29/22 07:31 01/29/22 07:31 01/29/22 07:01 General appearance: Present: severe distress, well-nourished, other (Morbidly obese) HEART Score - HEART Score EKG: Normal Age: 45-65 Risk factors: > 3 risk factors or hx of atherosclerotic disease Troponin: Troponin T < 0.010 ng/mL (0.00-0.029) 01/29/22 04:35 Troponin: < normal limit - Critical Actions Critical Actions: 0-3 pts:0.9-1.7%risk of adverse cardiac event.Candidate for discharge Results - Labs CBC & Chem 7: 01/29/22 04:35 01/29/22 04:35 Labs: Laboratory Last Values WBC 5.7 K/mm3 (4.5-11.0) 01/29/22 04:35 RBC 3.69 M/mm3 (3.65-5.03) 01/29/22 04:35 Hgb 9.7 gm/dl (10.1-14.3) L 01/29/22 04:35 Hct 33.3 % (30.3-42.9) 01/29/22 04:35 MCV 90 fl (79-97) 01/29/22 04:35 MCH 26 pg (28-32) L 01/29/22 04:35 MCHC 29 % (30-34) L 01/29/22 04:35 RDW 18.0 % (13.2-15.2) H 01/29/22 04:35 Plt Count 214 K/mm3 (140-440) 01/29/22 04:35 Lymph % (Auto) 14.5 % (13.4-35.0) 01/28/22 12:43 [place] % (Auto) 9.2 % (0.0-7.3) H 01/28/22 12:43 Eos % (Auto) 2.0 % (0.0-4.3) 01/28/22 12:43 Baso % (Auto) 0.5 % (0.0-1.8) 01/28/22 12:43 Lymph # (Auto) 1.0 K/mm3 (1.2-5.4) L 01/28/22 12:43 [place] # (Auto) 0.6 K/mm3 (0.0-0.8) 01/28/22 12:43 Eos # (Auto) 0.1 K/mm3 (0.0-0.4) 01/28/22 12:43 Baso # (Auto) 0.0 K/mm3 (0.0-0.1) 01/28/22 12:43 Add Manual Diff Complete 01/29/22 04:35 Total Counted 100 01/29/22 04:35 Seg Neutrophils % Senior It Engineer 01/29/22 04:35 Seg Neuts % (Manual) 97.0 % (40.0-70.0) H 01/29/22 04:35 Band Neutrophils % 0 % 01/29/22 04:35 Lymphocytes % (Manual) 2.0 % (13.4-35.0) L 01/29/22 04:35 Reactive Lymphs % (Man) 0 % 01/29/22 04:35 Monocytes % (Manual) 1.0 % (0.0-7.3) 01/29/22 04:35 Eosinophils % (Manual) 0 % (0.0-4.3) 01/29/22 04:35 Basophils % (Manual) 0 % (0.0-1.8) 01/29/22 04:35 Metamyelocytes % 0 % 01/29/22 04:35 Myelocytes % 0 % 01/29/22 04:35 Promyelocytes % 0 % 01/29/22 04:35 Blast Cells % 0 % 01/29/22 04:35 Nucleated RBC % Not Reportable 01/29/22 04:35 Seg Neutrophils # 4.8 K/mm3 (1.8-7.7) 01/28/22 12:43 Seg Neutrophils # Man 5.5 K/mm3 (1.8-7.7) 01/29/22 04:35 Band Neutrophils # 0.0 K/mm3 01/29/22 04:35 Lymphocytes # (Manual) 0.1 K/mm3 (1.2-5.4) L 01/29/22 04:35 Abs React Lymphs (Man) 0.0 K/mm3 01/29/22 04:35 Monocytes # (Manual) 0.1 K/mm3 (0.0-0.8) 01/29/22 04:35 Eosinophils # (Manual) 0.0 K/mm3 (0.0-0.4) 01/29/22 04:35 Basophils # (Manual) 0.0 K/mm3 (0.0-0.1) 01/29/22 04:35 Metamyelocytes # 0.0 K/mm3 01/29/22 04:35 Myelocytes # 0.0 K/mm3 01/29/22 04:35 Promyelocytes # 0.0 K/mm3 01/29/22 04:35 Blast Cells # 0.0 K/mm3 01/29/22 04:35 WBC Morphology Not Reportable 01/29/22 04:35 Hypersegmented Neuts Not Reportable 01/29/22 04:35 Hyposegmented Neuts Not Reportable 01/29/22 04:35 Hypogranular Neuts Not Reportable 01/29/22 04:35 Smudge Cells Not Reportable 01/29/22 04:35 Toxic Granulation Not Reportable 01/29/22 04:35 Toxic Vacuolation Not Reportable 01/29/22 04:35 Dohle Bodies Not Reportable 01/29/22 04:35 Pelger-Huet Anomaly Not Reportable 01/29/22 04:35 Papa Rods Not Reportable 01/29/22 04:35 Platelet Estimate Consistent w auto 01/29/22 04:35 Clumped Platelets Not Reportable 01/29/22 04:35 Plt Clumps, EDTA Not Reportable 01/29/22 04:35 Large Platelets Not Reportable 01/29/22 04:35 Giant Platelets Not Reportable 01/29/22 04:35 Platelet Satelliting Not Reportable 01/29/22 04:35 Plt Morphology Comment Not Reportable 01/29/22 04:35 RBC Morphology Not Reportable 01/29/22 04:35 Dimorphic RBCs Not Reportable 01/29/22 04:35 Polychromasia Not Reportable 01/29/22 04:35 Hypochromasia Not Reportable 01/29/22 04:35 Poikilocytosis Not Reportable 01/29/22 04:35 Anisocytosis 1+ 01/29/22 04:35 Microcytosis Not Reportable 01/29/22 04:35 Macrocytosis Not Reportable 01/29/22 04:35 Spherocytes Not Reportable 01/29/22 04:35 Pappenheimer Bodies Not Reportable 01/29/22 04:35 Sickle Cells Not Reportable 01/29/22 04:35 Target Cells Not Reportable 01/29/22 04:35 Tear Drop Cells Not Reportable 01/29/22 04:35 Ovalocytes Not Reportable 01/29/22 04:35 Helmet Cells Not Reportable 01/29/22 04:35 Landry-Rehobeth Bodies Not Reportable 01/29/22 04:35 Eddy Rings Not Reportable 01/29/22 04:35 Shyann Cells Not Reportable 01/29/22 04:35 Bite Cells Not Reportable 01/29/22 04:35 Crenated Cell Not Reportable 01/29/22 04:35 Elliptocytes Not Reportable 01/29/22 04:35 Acanthocytes (Spur) Not Reportable 01/29/22 04:35 Rouleaux Not Reportable 01/29/22 04:35 Hemoglobin C Crystals Not Reportable 01/29/22 04:35 Schistocytes Not Reportable 01/29/22 04:35 Malaria parasites Not Reportable 01/29/22 04:35 Guillermo Bodies Not Reportable 01/29/22 04:35 Hem Pathologist Commnt No 01/29/22 04:35 PT 15.8 Sec. (12.2-14.9) H 01/28/22 18:56 INR 1.13 (0.87-1.13) 01/28/22 18:56 APTT 33.9 Sec. (24.2-36.6) 01/28/22 18:56 Sodium 143 mmol/L (137-145) 01/29/22 04:35 Potassium 5.6 mmol/L (3.6-5.0) H 01/29/22 04:35 Chloride 98.1 mmol/L (98-107) 01/29/22 04:35 Carbon Dioxide 36 mmol/L (22-30) H 01/29/22 04:35 Anion Gap 15 mmol/L 01/29/22 04:35 BUN 21 mg/dL (7-17) H 01/29/22 04:35 Creatinine 1.6 mg/dL (0.6-1.2) H 01/29/22 04:35 Estimated GFR 40 ml/min 01/29/22 04:35 BUN/Creatinine Ratio 13 % 01/29/22 04:35 Glucose 109 mg/dL (65-100) H 01/29/22 04:35 Calcium 10.2 mg/dL (8.4-10.2) 01/29/22 04:35 Total Bilirubin 0.60 mg/dL (0.1-1.2) 01/29/22 04:35 AST 14 units/L (5-40) 01/29/22 04:35 ALT 9 units/L (7-56) 01/29/22 04:35 Alkaline Phosphatase 117 units/L (35-129) 01/29/22 04:35 Troponin T < 0.010 ng/mL (0.00-0.029) 01/29/22 04:35 NT-Pro-B Natriuret Pep 1347 pg/mL (0-900) H 01/28/22 12:43 Total Protein 8.7 g/dL (6.3-8.2) H 01/29/22 04:35 Albumin 3.3 g/dL (3.9-5) L 01/29/22 04:35 Albumin/Globulin Ratio 0.6 % 01/29/22 04:35 Small/IV: Voiding Method Indwelling Catheter Active Medications - Current Medications Current Medications: Generic Name Dose Route Start Last Admin Trade Name Freq PRN Reason Stop Dose Admin Acetaminophen 650 mg 01/28/22 18:16 Acetaminophen 325 Mg Tab PO Q4H PRN Pain MILD(1-3)/Fever >100.5/CHAVEZ Albuterol 2.5 mg 01/28/22 18:12 Albuterol 2.5 Mg/3 Ml Nebu IH Q4HRT PRN Shortness Of Breath Albuterol/Ipratropium 1 ampul 01/28/22 18:45 Ipratropium/Albuterol Sulfate 3 Ml Ampul.Neb IH Q3H PRN Wheezing Albuterol/Ipratropium 1 ampul 01/28/22 20:00 01/29/22 08:16 Ipratropium/Albuterol Sulfate 3 Ml Ampul.Neb IH 1 ampul QIDRT MARCELLA Administration Amiodarone HCl 200 mg 01/28/22 19:00 01/28/22 20:16 Amiodarone 200 Mg Tab PO 200 mg QDAY MARCELLA Administration Amlodipine Besylate 10 mg 01/28/22 19:00 01/28/22 20:02 Amlodipine 10 Mg Tab PO 10 mg QDAY MARCELLA Administration Apixaban 5 mg 01/28/22 22:00 01/28/22 21:44 Apixaban 5 Mg Tab PO 5 mg Q12HR MARCELLA Administration Protocol Ascorbic Acid 500 mg 01/28/22 22:00 01/28/22 21:44 Ascorbic Acid 500 Mg Tab PO 500 mg BID MARCELLA Administration Aspirin 81 mg 01/28/22 19:00 01/28/22 20:15 Aspirin 81 Mg Tab Chew PO Not Given QDAY [facility] Atenolol 25 mg 01/28/22 19:00 01/28/22 20:16 Atenolol 25 Mg Tab PO 25 mg DAILY MARCELLA Administration Atorvastatin Calcium 40 mg 01/28/22 22:00 01/28/22 21:44 Atorvastatin 40 Mg Tab PO 40 mg QHS MARCELLA Administration Diltiazem HCl 120 mg 01/28/22 19:00 01/28/22 20:15 Diltiazem Cd 120 Mg Cap PO 120 mg QDAY MARCELLA Administration Diphenhydramine HCl 25 mg 01/28/22 20:57 01/28/22 21:05 Diphenhydramine 50 Mg/Ml Vial IV 25 mg Q4H PRN Administration Itching Famotidine 20 mg 01/28/22 22:00 01/28/22 21:44 Famotidine 20 Mg Tab PO 20 mg BID MARCELLA Administration Furosemide 20 mg 01/28/22 19:00 01/28/22 20:16 Furosemide 20 Mg Tab PO 20 mg QDAY MARCELLA Administration Furosemide 40 mg 01/29/22 06:00 01/29/22 06:04 Furosemide 40 Mg/4 Ml Inj IV 40 mg 0600,1800 MARCELLA Administration Gabapentin 300 mg 01/28/22 22:00 01/28/22 21:44 Gabapentin 300 Mg Cap PO 300 mg BID MARCELLA Administration Levofloxacin/Dextrose 750 mg in 150 mls @ 100 mls/hr 01/28/22 19:00 01/28/22 20:17 Levaquin 750mg/150ml IV 100 mls/hr Q24HR MARCELLA Administration Protocol Calcium Gluconate 2,000 mg/ 120 mls @ 232.884 mls/hr 01/29/22 08:30 Sodium Chloride IV 01/29/22 09:00 ONCE ONE Methylprednisolone Sodium Succinate 60 mg 01/28/22 22:00 01/29/22 06:04 Methylprednisolone Sod Succinate 125 Mg/2 Ml Inj IV 60 mg Q8HR MARCELLA Administration Morphine Sulfate 2 mg 01/28/22 18:39 Morphine 2 Mg/1 Ml Inj IV Q4H PRN Pain, Moderate (4-6) Ondansetron HCl 4 mg 01/28/22 18:16 Ondansetron 4 Mg/2 Ml Inj IV Q8H PRN Nausea And Vomiting Sodium Chloride 10 ml 01/28/22 22:00 01/28/22 21:46 Sodium Chloride 0.9% 10 Ml Flush Syringe IV 10 ml BID MARCELLA Administration Sodium Chloride 10 ml 01/28/22 18:16 Sodium Chloride 0.9% 10 Ml Flush Syringe IV PRN PRN LINE FLUSH Tramadol HCl 50 mg 01/28/22 18:12 Tramadol 50 Mg Tab PO Q6H PRN Pain, Moderate (4-6) Zinc Sulfate 220 mg 01/28/22 22:00 01/28/22 21:45 Zinc Sulfate 220 Mg Cap PO 220 mg BID MARCELLA Administration
[2022-01-29 08:58] LABS: ABG HCO3 41.5 mmol/L (20.0-26.0); ABG Methemoglobin 0.4 % (0.0-1.5); ABG Oxygen Saturation 89.7 % (95.0-99.0); ABG PH 7.366 pH Units (7.350-7.450)
[2022-01-29] MEDS: AMIODARONE 200 MG TAB PO SCH (09:12)
[2022-01-29] MEDS: atenoloL 25 MG TAB PO SCH (09:13)
[2022-01-29] MEDS: dilTIAZem CD 120 MG CAP PO SCH (09:13)
[2022-01-29] MEDS: ASPIRIN 81 MG TAB CHEW PO SCH (09:13)
[2022-01-29] MEDS: ZINC SULFATE 220 MG CAP PO SCH ×2 (09:13→20:59)
[2022-01-29] MEDS: APIXABAN 5 MG TAB PO SCH ×2 (09:13→20:59)
[2022-01-29] MEDS: amLODIPine 10 MG TAB PO SCH (09:13)
[2022-01-29] MEDS: FAMOTIDINE 20 MG TAB PO SCH ×2 (09:14→21:00)
[2022-01-29] MEDS: GABAPENTIN 300 MG CAP PO SCH ×2 (09:14→20:59)
[2022-01-29] MEDS: ASCORBIC ACID 500 MG TAB PO SCH ×2 (09:14→21:00)
[2022-01-29] MEDS: traMADol 50 MG TAB PO PRN (10:09)
--- NOTE | 2022-01-29 10:27 | Consultation ---
History of Present Illness Consult date: 01/29/22 Consult reason: chest pain History of present illness: 61-year-old morbidly obese female presenting with chest pain. Patient has a history of recurrent chest pain and was last seen at [facility] where a cardiac cath was attempted however patient was not able to lay flat and she requested the procedure to be canceled. She is still not able to lay flat and she does not want to pursue any invasive coronary angiography. She indeed formulates desire to be DO NOT RESUSCITATE. She is on home oxygen through nasal cannula. She is not able to tolerate CPAP or BiPAP at home. EKG this admission showing normal sinus rhythm and troponin is negative x2. She is currently normal sinus rhythm on telemetry. She denies any chest pain or shortness of breath. Past History Past Medical History: COPD, diabetes, heart failure, hypertension Medications and Allergies Allergies Allergy/AdvReac Type Severity Reaction Status Date / Time levofloxacin [From Levaquin] Allergy Itching Verified 01/28/22 21:50 egg AdvReac Severe Hives Verified 01/28/22 13:08 Home Medications Medication Instructions Recorded Confirmed Last Taken Type Gabapentin 300 mg PO BID 05/19/19 03/12/21 Unknown History Multivit-Minerals/Folic Acid [One 0.4 mg PO DAILY 05/19/19 03/12/21 Unknown History Daily Womens 50 Plus Tab] ALBUTEROL NEB's [Proventil 0.083% 2.5 mg IH Q4HRT PRN #90 nebu 08/05/20 03/12/21 Unknown Rx NEBS] Furosemide [Lasix TAB] 20 mg PO QDAY #30 tablet 08/05/20 03/12/21 Unknown Rx amLODIPine 10 mg PO QDAY #30 tablet 08/05/20 03/12/21 Unknown Rx atenoloL [Tenormin] 25 mg PO DAILY #120 tab 08/05/20 03/12/21 Unknown Rx cephALEXin [Keflex] 500 mg PO Q6HR #20 capsule 08/05/20 03/12/21 Unknown Rx Amiodarone [Cordarone 200 MG TAB] 200 mg PO QDAY #30 tablet 03/23/21 Unknown Rx Apixaban [Eliquis] 5 mg PO Q12HR #60 tablet 03/23/21 Unknown Rx Ascorbic Acid [Vitamin C] 500 mg PO BID #30 tablet 03/23/21 Unknown Rx Aspirin [Aspirin BABY CHEW TAB] 81 mg PO QDAY #30 tab.chew 03/23/21 Unknown Rx AtorvaSTATin [Lipitor] 40 mg PO QHS #30 tablet 03/23/21 Unknown Rx Famotidine [Pepcid] 20 mg PO BID #60 tablet 03/23/21 Unknown Rx Zinc Sulfate 220 mg PO BID #30 capsule 03/23/21 Unknown Rx dilTIAZem CD [Cardizem CD] 120 mg PO QDAY #30 capsule 03/23/21 Unknown Rx traMADoL [Ultram 50 MG tab] 50 mg PO Q6H PRN #20 tablet 03/23/21 Unknown Rx Active Meds: Active Medications Acetaminophen (Acetaminophen 325 Mg Tab) 650 mg PO Q4H PRN PRN Reason: Pain MILD(1-3)/Fever >100.5/CHAVEZ Albuterol (Albuterol 2.5 Mg/3 Ml Nebu) 2.5 mg IH Q4HRT PRN PRN Reason: Shortness Of Breath Albuterol/Ipratropium (Ipratropium/Albuterol Sulfate 3 Ml Ampul.Neb) 1 ampul IH Q3H PRN PRN Reason: Wheezing Albuterol/Ipratropium (Ipratropium/Albuterol Sulfate 3 Ml Ampul.Neb) 1 ampul IH QIDRT [facility] Last Admin: 01/29/22 08:16 Dose: 1 ampul Amiodarone HCl (Amiodarone 200 Mg Tab) 200 mg PO QDAY [facility] Last Admin: 01/29/22 09:12 Dose: 200 mg Amlodipine Besylate (Amlodipine 10 Mg Tab) 10 mg PO QDAY [facility] Last Admin: 01/29/22 09:13 Dose: 10 mg Apixaban (Apixaban 5 Mg Tab) 5 mg PO Q12HR [facility]; Protocol Last Admin: 01/29/22 09:13 Dose: 5 mg Ascorbic Acid (Ascorbic Acid 500 Mg Tab) 500 mg PO BID [facility] Last Admin: 01/29/22 09:14 Dose: 500 mg Aspirin (Aspirin 81 Mg Tab Chew) 81 mg PO QDAY [facility] Last Admin: 01/29/22 09:13 Dose: 81 mg Atenolol (Atenolol 25 Mg Tab) 25 mg PO DAILY [facility] Last Admin: 01/29/22 09:13 Dose: 25 mg Atorvastatin Calcium (Atorvastatin 40 Mg Tab) 40 mg PO QHS [facility] Last Admin: 01/28/22 21:44 Dose: 40 mg Diltiazem HCl (Diltiazem Cd 120 Mg Cap) 120 mg PO QDAY [facility] Last Admin: 01/29/22 09:13 Dose: 120 mg Diphenhydramine HCl (Diphenhydramine 50 Mg/Ml Vial) 25 mg IV Q4H PRN PRN Reason: Itching Last Admin: 01/28/22 21:05 Dose: 25 mg Famotidine (Famotidine 20 Mg Tab) 20 mg PO BID [facility] Last Admin: 01/29/22 09:14 Dose: 20 mg Furosemide (Furosemide 40 Mg/4 Ml Inj) 40 mg IV 0600,1800 [facility] Last Admin: 01/29/22 06:04 Dose: 40 mg Gabapentin (Gabapentin 300 Mg Cap) 300 mg PO BID [facility] Last Admin: 01/29/22 09:14 Dose: 300 mg Hydralazine HCl (Hydralazine 100 Mg Tab) 100 mg PO TID [facility] Methylprednisolone Sodium Succinate (Methylprednisolone Sod Succinate 125 Mg/2 Ml Inj) 60 mg IV Q8HR [facility] Last Admin: 01/29/22 06:04 Dose: 60 mg Morphine Sulfate (Morphine 2 Mg/1 Ml Inj) 2 mg IV Q4H PRN PRN Reason: Pain, Moderate (4-6) Ondansetron HCl (Ondansetron 4 Mg/2 Ml Inj) 4 mg IV Q8H PRN PRN Reason: Nausea And Vomiting Sodium Chloride (Sodium Chloride 0.9% 10 Ml Flush Syringe) 10 ml IV BID [facility] Last Admin: 01/29/22 09:12 Dose: 10 ml Sodium Chloride (Sodium Chloride 0.9% 10 Ml Flush Syringe) 10 ml IV PRN PRN PRN Reason: LINE FLUSH Tramadol HCl (Tramadol 50 Mg Tab) 50 mg PO Q6H PRN PRN Reason: Pain, Moderate (4-6) Last Admin: 01/29/22 10:09 Dose: 50 mg Zinc Sulfate (Zinc Sulfate 220 Mg Cap) 220 mg PO BID [facility] Last Admin: 01/29/22 09:13 Dose: 220 mg Review of Systems All systems: negative Physical Examination Vital Signs Pulse Resp 80 15 01/28/22 12:33 01/28/22 12:33 General appearance: no acute distress Neck: Positive: neck supple Cardiac: Positive: Reg Rate and Rhythm Lungs: Positive: Decreased Breath Sounds Abdomen: Positive: Soft Extremities: Present: edema Results 01/29/22 04:35 01/29/22 04:35 Cardiac Enzymes 01/28/22 01/29/22 Range/Units 12:43 04:35 AST 17 14 (5-40) units/L Coagulation 01/28/22 Range/Units 18:56 PT 15.8 H (12.2-14.9) Sec. INR 1.13 (0.87-1.13) APTT 33.9 (24.2-36.6) Sec. CBC 01/28/22 01/28/22 01/29/22 Range/Units 12:43 18:56 04:35 WBC 6.5 6.0 5.7 (4.5-11.0) K/mm3 RBC 3.27 L 3.32 L 3.69 (3.65-5.03) M/mm3 Hgb 8.8 L 8.8 L 9.7 L (10.1-14.3) gm/dl Hct 28.8 L 29.4 L 33.3 (30.3-42.9) % Plt Count 186 195 214 (140-440) K/mm3 Lymph # (Auto) 1.0 L (1.2-5.4) K/mm3 [place] # (Auto) 0.6 (0.0-0.8) K/mm3 Eos # (Auto) 0.1 (0.0-0.4) K/mm3 Baso # (Auto) 0.0 (0.0-0.1) K/mm3 Comprehensive Metabolic Panel 01/28/22 01/28/22 01/29/22 Range/Units 12:43 18:56 04:35 Sodium 143 143 (137-145) mmol/L Potassium 5.1 H 5.6 H (3.6-5.0) mmol/L Chloride 99.8 98.1 (98-107) mmol/L Carbon Dioxide 38 H 36 H (22-30) mmol/L BUN 20 H 21 H (7-17) mg/dL Creatinine 1.6 H 1.6 H 1.6 H (0.6-1.2) mg/dL Glucose 84 109 H (65-100) mg/dL Calcium 9.7 10.2 (8.4-10.2) mg/dL AST 17 14 (5-40) units/L ALT 9 9 (7-56) units/L Alkaline Phosphatase 104 117 (35-129) units/L Total Protein 7.9 8.7 H (6.3-8.2) g/dL Albumin 3.2 L 3.3 L (3.9-5) g/dL - EKG Interpretation EKG: sinus rhythm EKG interpretations - Telemetry EKG Rhythm: Sinus Rhythm Assessment and Plan Chest pain Attempt at cardiac cath in June 2021 at [facility] failed due to the patient inability to lay flat Patient does not want to pursue any invasive cardiac work-up this admission. Acute on chronic diastolic heart failure Prior echo done at [facility] in June 2021 revealing preserved left ventricular ejection fraction Paroxysmal atrial fibrillation Patient is on Eliquis as outpatient Chronic hypoxic respiratory failure Obesity hypoventilation syndrome Obstructive sleep apnea Morbid obesity Chronic renal failure with a creatinine baseline of 1.3-1.6 Recommendations: Continue current management. IV diuresis and afterload reduction Conservative cardiac management Resume Eliquis for thromboembolism prophylaxis
[2022-01-29] MEDS: MORPHINE 2 MG/1 ML INJ IV PRN ×3 (11:58→21:13)
[2022-01-29] MEDS: hydrALAZINE 100 MG TAB PO SCH ×2 (13:26→20:59)
--- NOTE | 2022-01-29 13:30 | Event Note ---
Date: 01/29/[address] Frias, please consult him
--- NOTE | 2022-01-29 13:58 | Consultation ---
History of Present Illness Consult date: 01/29/22 Reason for consult: dyspnea, hypoxemia, obstructive sleep apnea, other (Obesity Hypoventilation.) History of present illness: 64-year-old female with morbid obesity-current BMI of 70.7 Kg/M2 and weighing about 400 pounds on home oxygen up to 4 L nasal cannula comes in for shortness of breath chest pain, headache and diarrhea. Patient states that she has been short of breath for last couple years and her oxygen levels usually run around 85-90. She has been able to walk to the restroom and ADLs till 1 month ago. Now she is nearly bedridden. Uses bedside commode. Patient also complaining back pain and Kidney stones. No fever or chills. Patient is very hypoxic in the emergency room with oxygen at low 80s. Patient is supposed to be on CPAP at home for obstructive sleep apnea but does not use because of inconvenience. Patient has history of Hypertension,CHF,Pulmonary emboli, COPD, Arthritis, Obstructive sleep apnea and Obesity hypoventilation. Patients surgical history and Gastric Bypass in 2006. Patient has history of smoking 1 pack x 20 years. Stopped smoking 10 years ago. Denies alcohol or drug abuse. 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 Allergic to Levofloxacin and EGGS. Patient awake. Resting on 4 litres O2. O2 saturation 85%. Patient does not want to use CPAP or BIPAP. Patients blood gases on 4 litres O2 ABG pH 7.366 pH Units (7.350-7.450) 01/29/22 Unknown ABG pCO2 74.0 mm Hg 01/29/22 Unknown ABG pO2 58.0 mm Hg (80.0-90.0) L 01/29/22 Unknown ABG O2 Saturation 89.7 % (95.0-99.0) L 01/29/22 Unknown Patient afebrile. No leukocytosis. Blood pressure 191/94, Pulse 62 , Respirations 11. Chest xray done reported indings are most characteristic of congestive heart failure with venous congestion, pulmonary edema and enlargement of the cardiac silhouette. Patient is on I/V solumedrol, Albuterol/atrovent aerosol treatments, Apixaban and Famotidine. Past History Past Medical History: COPD, diabetes, heart failure, hypertension, other (Sleep apnea and Obesity hypoventilation.) Medications and Allergies Allergies Allergy/AdvReac Type Severity Reaction Status Date / Time levofloxacin [From Levaquin] Allergy Itching Verified 01/28/22 21:50 egg AdvReac Severe Hives Verified 01/28/22 13:08 Home Medications Medication Instructions Recorded Confirmed Last Taken Type Gabapentin 300 mg PO BID 05/19/19 03/12/21 Unknown History ALBUTEROL NEB's [Proventil 0.083% 2.5 mg IH Q4HRT PRN #90 nebu 08/05/20 03/12/21 Unknown Rx NEBS] Amiodarone [Cordarone 200 MG TAB] 200 mg PO QDAY #30 tablet 03/23/21 Unknown Rx Apixaban [Eliquis] 5 mg PO Q12HR #60 tablet 03/23/21 Unknown Rx Aspirin [Aspirin BABY CHEW TAB] 81 mg PO QDAY #30 tab.chew 03/23/21 Unknown Rx AtorvaSTATin [Lipitor] 40 mg PO QHS #30 tablet 03/23/21 Unknown Rx Famotidine [Pepcid] 20 mg PO BID #60 tablet 03/23/21 Unknown Rx dilTIAZem CD [Cardizem CD] 120 mg PO QDAY #30 capsule 03/23/21 Unknown Rx Furosemide [Lasix TAB] 40 mg PO QDAY 01/29/22 01/29/22 Unknown History HYDROcodone/APAP 5-325 [[place] 1 each PO TID PRN 01/29/22 01/29/22 Unknown History 5/325] Active Meds: Active Medications Acetaminophen (Acetaminophen 325 Mg Tab) 650 mg PO Q4H PRN PRN Reason: Pain MILD(1-3)/Fever >100.5/CHAVEZ Albuterol (Albuterol 2.5 Mg/3 Ml Nebu) 2.5 mg IH Q4HRT PRN PRN Reason: Shortness Of Breath Albuterol/Ipratropium (Ipratropium/Albuterol Sulfate 3 Ml Ampul.Neb) 1 ampul IH Q3H PRN PRN Reason: Wheezing Albuterol/Ipratropium (Ipratropium/Albuterol Sulfate 3 Ml Ampul.Neb) 1 ampul IH Q6HRT [facility] Amiodarone HCl (Amiodarone 200 Mg Tab) 200 mg PO QDAY [facility] Last Admin: 01/29/22 09:12 Dose: 200 mg Amlodipine Besylate (Amlodipine 10 Mg Tab) 10 mg PO QDAY [facility] Last Admin: 01/29/22 09:13 Dose: 10 mg Apixaban (Apixaban 5 Mg Tab) 5 mg PO Q12HR [facility]; Protocol Last Admin: 01/29/22 09:13 Dose: 5 mg Ascorbic Acid (Ascorbic Acid 500 Mg Tab) 500 mg PO BID [facility] Last Admin: 01/29/22 09:14 Dose: 500 mg Aspirin (Aspirin 81 Mg Tab Chew) 81 mg PO QDAY [facility] Last Admin: 01/29/22 09:13 Dose: 81 mg Atenolol (Atenolol 25 Mg Tab) 25 mg PO DAILY [facility] Last Admin: 01/29/22 09:13 Dose: 25 mg Atorvastatin Calcium (Atorvastatin 40 Mg Tab) 40 mg PO QHS [facility] Last Admin: 01/28/22 21:44 Dose: 40 mg Diltiazem HCl (Diltiazem Cd 120 Mg Cap) 120 mg PO QDAY [facility] Last Admin: 01/29/22 09:13 Dose: 120 mg Diphenhydramine HCl (Diphenhydramine 50 Mg/Ml Vial) 25 mg IV Q4H PRN PRN Reason: Itching Last Admin: 01/28/22 21:05 Dose: 25 mg Famotidine (Famotidine 20 Mg Tab) 20 mg PO BID [facility] Last Admin: 01/29/22 09:14 Dose: 20 mg Furosemide (Furosemide 40 Mg/4 Ml Inj) 40 mg IV 0600,1800 [facility] Last Admin: 01/29/22 06:04 Dose: 40 mg Gabapentin (Gabapentin 300 Mg Cap) 300 mg PO BID [facility] Last Admin: 01/29/22 09:14 Dose: 300 mg Hydralazine HCl (Hydralazine 100 Mg Tab) 100 mg PO TID [facility] Last Admin: 01/29/22 13:26 Dose: 100 mg Labetalol HCl (Labetalol 20 Mg/4 Ml Inj) 10 mg IV Q4HR PRN PRN Reason: sbp>160 Last Admin: 01/29/22 13:26 Dose: 10 mg Methylprednisolone Sodium Succinate (Methylprednisolone Sod Succinate 125 Mg/2 Ml Inj) 60 mg IV Q8HR [facility] Last Admin: 01/29/22 13:26 Dose: 60 mg Morphine Sulfate (Morphine 2 Mg/1 Ml Inj) 2 mg IV Q4H PRN PRN Reason: Pain, Moderate (4-6) Last Admin: 01/29/22 11:58 Dose: 2 mg Ondansetron HCl (Ondansetron 4 Mg/2 Ml Inj) 4 mg IV Q8H PRN PRN Reason: Nausea And Vomiting Sodium Chloride (Sodium Chloride 0.9% 10 Ml Flush Syringe) 10 ml IV BID [facility] Last Admin: 01/29/22 09:12 Dose: 10 ml Sodium Chloride (Sodium Chloride 0.9% 10 Ml Flush Syringe) 10 ml IV PRN PRN PRN Reason: LINE FLUSH Tramadol HCl (Tramadol 50 Mg Tab) 50 mg PO Q6H PRN PRN Reason: Pain, Moderate (4-6) Last Admin: 01/29/22 10:09 Dose: 50 mg Zinc Sulfate (Zinc Sulfate 220 Mg Cap) 220 mg PO BID [facility] Last Admin: 01/29/22 09:13 Dose: 220 mg Review of Systems All systems: negative Physical Examination Vital signs: Vital Signs Pulse Resp 80 15 01/28/22 12:33 01/28/22 12:33 General appearance: no acute distress, alert, other (Morbidly Obese.) Eyes: non-icteric ENT: oropharynx moist Neck: supple, no lymphadenopathy, no JVD Effort: mildly labored Ascultation: Bilateral: diminished breath sounds Cardiovascular: regular rate and rhythm Gastrointestinal: normoactive bowel sounds, soft, non-tender, other (Obese.) Integumentary: normal Extremities: no cyanosis, no edema, other (Stasis dermatitis.) Musculoskeletal: joint tenderness Gait: other (Morbidly Obese. Can not walk or poor gait.) normal mental status, non-focal exam, pupils equal and round mood appropriate, affect normal Results - Laboratory Findings CBC and BMP: 01/29/22 04:35 01/29/22 04:35 ABG ABG pH 7.366 pH Units (7.350-7.450) 01/29/22 Unknown ABG pCO2 74.0 mm Hg 01/29/22 Unknown ABG pO2 58.0 mm Hg (80.0-90.0) L 01/29/22 Unknown ABG O2 Saturation 89.7 % (95.0-99.0) L 01/29/22 Unknown PT/INR, D-dimer PT 15.8 Sec. (12.2-14.9) H 01/28/22 18:56 INR 1.13 (0.87-1.13) 01/28/22 18:56 Abnormal lab findings: Abnormal Labs 01/28/22 01/28/22 01/28/22 12:43 12:43 12:43 RBC 3.27 L Hgb 8.8 L Hct 28.8 L MCH 27 L MCHC RDW 18.0 H [place] % (Auto) 9.2 H Lymph # (Auto) 1.0 L Seg Neutrophils % 73.8 H Seg Neuts % (Manual) Lymphocytes % (Manual) Lymphocytes # (Manual) PT ABG pO2 ABG HCO3 ABG O2 Saturation ABG Base Excess ABG Hemoglobin Oxyhemoglobin Potassium 5.1 H Carbon Dioxide 38 H BUN 20 H Creatinine 1.6 H Glucose NT-Pro-B Natriuret Pep 1347 H Total Protein Albumin 3.2 L 01/28/22 01/28/22 01/28/22 18:56 18:56 18:56 RBC 3.32 L Hgb 8.8 L Hct 29.4 L MCH 27 L MCHC RDW 17.7 H [place] % (Auto) Lymph # (Auto) Seg Neutrophils % Seg Neuts % (Manual) Lymphocytes % (Manual) Lymphocytes # (Manual) PT 15.8 H ABG pO2 ABG HCO3 ABG O2 Saturation ABG Base Excess ABG Hemoglobin Oxyhemoglobin Potassium Carbon Dioxide BUN Creatinine 1.6 H Glucose NT-Pro-B Natriuret Pep Total Protein Albumin 01/29/22 01/29/22 01/29/22 04:35 04:35 Unknown RBC Hgb 9.7 L Hct MCH 26 L MCHC 29 L RDW 18.0 H [place] % (Auto) Lymph # (Auto) Seg Neutrophils % Seg Neuts % (Manual) 97.0 H Lymphocytes % (Manual) 2.0 L Lymphocytes # (Manual) 0.1 L PT ABG pO2 58.0 L ABG HCO3 41.5 H ABG O2 Saturation 89.7 L ABG Base Excess 14.0 H ABG Hemoglobin 9.0 L Oxyhemoglobin 87.1 L Potassium 5.6 H Carbon Dioxide 36 H BUN 21 H Creatinine 1.6 H Glucose 109 H NT-Pro-B Natriuret Pep Total Protein 8.7 H Albumin 3.3 L - Diagnostic Findings Chest x-ray: report reviewed, image reviewed Additional studies: HEST 1 VIEW 01/28/2022 11:24 AM INDICATION / CLINICAL INFORMATION: Chest Pain. COMPARISON: 03/22/2021 FINDINGS: SUPPORT DEVICES: None. HEART / MEDIASTINUM: There is prominence of the cardiac silhouette LUNGS / PLEURA: There is venous congestion. There are increased interstitial markings bilaterally. There is more focal increased density in the perihilar region. No pneumothorax. ADDITIONAL FINDINGS: No significant additional findings. IMPRESSION: 1. Findings are most characteristic of congestive heart failure with venous congestion, pulmonary edema and enlargement of the cardiac silhouette. Assessment and Plan 64-year-old female with morbid obesity-current BMI of 70.7 Kg/M2 and weighing about 400 pounds on home oxygen up to 4 L nasal cannula comes in for shortness of breath chest pain, headache and diarrhea. Patient states that she has been short of breath for last couple years and her oxygen levels usually run around 85-90. She has been able to walk to the restroom and ADLs till 1 month ago. Now she is nearly bedridden. Uses bedside commode. Patient also complaining back pain and Kidney stones. No fever or chills. Patient is very hypoxic in the emergency room with oxygen at low 80s. Patient is supposed to be on CPAP at home for obstructive sleep apnea but does not use because of inconvenience. Patient has history of Hypertension,CHF,Pulmonary emboli, COPD, Arthritis, Obstructive sleep apnea and Obesity hypoventilation. Patients surgical history and Gastric Bypass in 2006. Patient has history of smoking 1 pack x 20 years. Stopped smoking 10 years ago. Denies alcohol or drug abuse. 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 Allergic to Levofloxacin and EGGS. Patient awake. Resting on 4 litres O2. O2 saturation 85%. Patient does not want to use CPAP or BIPAP. Patients blood gases on 4 litres O2 ABG pH 7.366 pH Units (7.350-7.450) 01/29/22 Unknown ABG pCO2 74.0 mm Hg 01/29/22 Unknown ABG pO2 58.0 mm Hg (80.0-90.0) L 01/29/22 Unknown ABG O2 Saturation 89.7 % (95.0-99.0) L 01/29/22 Unknown Patient afebrile. No leukocytosis. Blood pressure 191/94, Pulse 62 , Respirations 11. Chest xray done reported indings are most characteristic of congestive heart failure with venous congestion, pulmonary edema and enlargement of the cardiac silhouette. Patient is on I/V solumedrol, Albuterol/atrovent aerosol treatments, Apixaban and Famotidine. Patient was seen in [facility]. I spent critical care time of 48 minutes obtaining history, review the chart, examine the patient , review lab results and chest xray, talking to respiratory therapy and nursing staff and work up plan of treatment in this critically ill patient. - Patient Problems (1) Acute respiratory failure with hypoxia Current Visit: Yes Status: Acute Plan to address problem: O2 4 litres via nasal canula. Continue I/V solumedrol. Continue Apixaban. Continue famotidine. Recommend to use BIPAP. Patient does not want to use BIPAP. (2) Acute exacerbation of CHF (congestive heart failure) Current Visit: Yes Status: Acute Qualifiers: Heart failure type: unspecified Qualified Code(s): I50.9 - Heart failure, unspecified Plan to address problem: Patient is on Lasix. Management as per cardiology. (3) Atypical chest pain Current Visit: Yes Status: Acute Plan to address problem: Management as per cardiology. (4) Hypertension Current Visit: Yes Status: Chronic Qualifiers: Hypertension type: primary hypertension Qualified Code(s): I10 - Essential (primary) hypertension Plan to address problem: Management as per primary care and cardiology. (5) Morbid obesity with BMI of 70 and over, adult Current Visit: Yes Status: Acute Plan to address problem: Counseled to loose weight. Diet and exercise. (6) Obesity hypoventilation syndrome Current Visit: No Status: Acute Plan to address problem: Patient does not want to use CPAP or BIPAP Recommend Positional therapy. Recommend to sleep on prone position. (7) Sleep apnea in adult Current Visit: No Status: Acute Plan to address problem: Patient does not want to use CPAP or BIPAP Recommend Positional therapy. Recommend to sleep on prone position.
--- NOTE | 2022-01-29 15:17 | Electrocardiograph Report ---
[facility] Test Date: 2022-01-28 Test Time: 12:59:42 Pat Name: MICAH DUARTE Department: Room: A265 Gender: F Resource Efficiency Manager: GP : [id number] Requested By: BARBI WHITE Order Number: [id number] Reading MD: Rachel Santana Measurements Intervals [place] Rate: 72 P: 60 [place]: 208 QRS: 71 QRSD: 108 T: 51 QT: 398 QTc: 435 Interpretive Statements Sinus rhythm Probable left atrial enlargement Compared to ECG 03/23/2021 09:52:00 First degree AV block no longer present Electronically Signed On 01-29-2022 15:17:02 EDT by Rachel Santana
[2022-01-29] MEDS: diphenhydrAMINE 50 MG/ML VIAL IV PRN (21:14)
[2022-01-30] MEDS: MORPHINE 2 MG/1 ML INJ IV PRN ×4 (01:16→21:43)
[2022-01-30] MEDS: IPRATROPIUM/ALBUTEROL SULFATE 3 ML AMPUL.NEB IH SCH ×4 (03:41→21:04)
[2022-01-30 05:09] LABS: Mean Corpuscular HGB Conc 30 % (30-34); Mean Corpuscular Volume 87 fl (79-97); Platelet Count 232 K/mm3 (140-440); Red Blood Count 3.64 M/mm3 (3.65-5.03); Red Cell Distribution Width 18.3 % (13.2-15.2)
[2022-01-30 05:22] LABS: Hematocrit 31.8 % (30.3-42.9); Hemoglobin 9.5 gm/dl (10.1-14.3)
[2022-01-30] MEDS: FUROSEMIDE 40 MG/4 ML INJ IV SCH ×2 (05:54→17:33)
[2022-01-30] MEDS: methylPREDNISolone Sod Succinate 125 MG/2 ML INJ IV SCH ×3 (05:54→21:33)
[2022-01-30] MEDS: hydrALAZINE 100 MG TAB PO SCH ×3 (08:02→21:32)
[2022-01-30] MEDS: ASPIRIN 81 MG TAB CHEW PO SCH (09:00)
[2022-01-30] MEDS: ZINC SULFATE 220 MG CAP PO SCH ×2 (09:01→21:32)
[2022-01-30] MEDS: dilTIAZem CD 120 MG CAP PO SCH (09:01)
[2022-01-30] MEDS: FAMOTIDINE 20 MG TAB PO SCH ×2 (09:01→21:33)
[2022-01-30] MEDS: amLODIPine 10 MG TAB PO SCH (09:01)
[2022-01-30] MEDS: GABAPENTIN 300 MG CAP PO SCH ×2 (09:01→21:31)
[2022-01-30] MEDS: ASCORBIC ACID 500 MG TAB PO SCH ×2 (09:01→21:32)
[2022-01-30] MEDS: APIXABAN 5 MG TAB PO SCH ×2 (09:01→21:32)
[2022-01-30] MEDS: AMIODARONE 200 MG TAB PO SCH (09:02)
[2022-01-30] MEDS: atenoloL 25 MG TAB PO SCH (09:02)
--- NOTE | 2022-01-30 09:36 | Progress Note ---
Assessment and Plan Acute and chronic respiratory failure with hypoxia Acute decompensated heart failure Obesity hypoventilation syndrome Paroxysmal atrial fibrillation Essential hypertension Hyperkalemia Acute kidney injury due to vasomotor nephropathy Morbid Obesity-BMI 70.7 -Titrate supplemental oxygen to keep SpO2 88-90% -BIPAP qhs and prn -CXR, ABGs as clinically indicated -Avoid nephrotoxins, dose all medications for GFR and CrCL -Blood pressure medications, monitor hemodynamics closely -States she does not want any invasive measures -PT/OT to evaluate and treat before a bedside commode is used -VTE prophylaxis- therapeutic anticoagulation on Apixaban -Heart failure measures -Mobility, frequent turning per facility protocol to prevent pressure ulcers Patient elects to be DNAR in the event of cardiopulmonary arrest She has a Small Discharge planning on going- possible long term Subjective Date of service: 01/30/22 Interval history: 64-year-old female with morbid obesity-current BMI of 70.7 and weighing about 400 pounds on home oxygen up to 4 L nasal cannula comes in for shortness of breath chest pain, headache and diarrhea f/up for acute and chronic hypoxemic resp failure; extreme obesity;Obesity hypoventilation syndrome; Obstructive sleep apnea Seen and examined. Vitals, labs, medications, chart reviewed. Discussed with nursing care staff. She denies any chest pain, states the shortness of breath is better. No fevers, no chills, no nausea or vomiting. She is tolerating a clear liquid diet. Objective Vital Signs - 12hr 01/29/22 01/29/22 01/29/22 21:43 22:00 22:30 Temperature Pulse Rate 67 67 Pulse Rate [ Bilateral Throughout] Pulse Rate [ From Monitor] Respiratory 16 Rate Respiratory Rate [Bilateral Throughout] Blood Pressure 147/83 132/80 O2 Sat by Pulse 89 84 Oximetry 01/29/22 01/29/22 01/30/22 23:00 23:31 00:00 Temperature 98.9 F Pulse Rate 67 71 64 Pulse Rate [ Bilateral Throughout] Pulse Rate [ From Monitor] Respiratory Rate Respiratory Rate [Bilateral Throughout] Blood Pressure 142/79 142/79 151/82 O2 Sat by Pulse 90 94 90 Oximetry 01/30/22 01/30/22 01/30/22 00:10 00:31 01:00 Temperature Pulse Rate 67 65 55 L Pulse Rate [ Bilateral Throughout] Pulse Rate [ From Monitor] Respiratory Rate Respiratory Rate [Bilateral Throughout] Blood Pressure 159/88 166/84 O2 Sat by Pulse Oximetry 01/30/22 01/30/22 01/30/22 01:16 01:30 01:46 Temperature Pulse Rate 63 Pulse Rate [ Bilateral Throughout] Pulse Rate [ From Monitor] Respiratory 16 29 H 20 Rate Respiratory Rate [Bilateral Throughout] Blood Pressure 156/83 O2 Sat by Pulse 90 Oximetry 01/30/22 01/30/22 01/30/22 02:30 03:30 03:40 Temperature Pulse Rate 56 L 67 56 L Pulse Rate [ Bilateral Throughout] Pulse Rate [ From Monitor] Respiratory 24 29 H Rate Respiratory Rate [Bilateral Throughout] Blood Pressure 166/86 169/85 O2 Sat by Pulse 90 Oximetry 01/30/22 01/30/22 01/30/22 04:00 04:31 06:00 Temperature 98.1 F Pulse Rate 58 L 65 58 L Pulse Rate [ Bilateral Throughout] Pulse Rate [ 56 L From Monitor] Respiratory 24 19 20 Rate Respiratory Rate [Bilateral Throughout] Blood Pressure 167/82 167/82 146/86 O2 Sat by Pulse 92 88 90 Oximetry 01/30/22 01/30/22 01/30/22 06:30 07:00 08:00 Temperature 98.1 F Pulse Rate 49 L 51 L Pulse Rate [ Bilateral Throughout] Pulse Rate [ From Monitor] Respiratory 24 24 Rate Respiratory Rate [Bilateral Throughout] Blood Pressure 152/79 152/85 O2 Sat by Pulse 89 91 Oximetry 01/30/22 01/30/22 01/30/22 08:50 08:55 09:01 Temperature Pulse Rate Pulse Rate [ 72 Bilateral Throughout] Pulse Rate [ From Monitor] Respiratory Rate Respiratory 20 Rate [Bilateral Throughout] Blood Pressure 133/73 O2 Sat by Pulse 94 Oximetry 01/30/22 09:02 Temperature Pulse Rate Pulse Rate [ Bilateral Throughout] Pulse Rate [ From Monitor] Respiratory Rate Respiratory Rate [Bilateral Throughout] Blood Pressure 133/73 O2 Sat by Pulse Oximetry Constitutional: no acute distress, alert, other (Morbidly Obese.) Eyes: non-icteric ENT: oropharynx moist Neck: supple, no lymphadenopathy, no JVD Effort: mildly labored Ascultation: Bilateral: diminished breath sounds Cardiovascular: regular rate and rhythm Gastrointestinal: normoactive bowel sounds, soft, non-tender, other (Obese, Small catheter) Integumentary: normal Extremities: no cyanosis, other (Stasis dermatitis) Neurologic: normal mental status, non-focal exam, pupils equal and round Psychiatric: mood appropriate, affect normal CBC and BMP: 01/30/22 04:32 01/30/22 04:32 ABG, PT/INR, D-dimer: ABG ABG pH 7.366 pH Units (7.350-7.450) 01/29/22 Unknown ABG pCO2 74.0 mm Hg 01/29/22 Unknown ABG pO2 58.0 mm Hg (80.0-90.0) L 01/29/22 Unknown ABG O2 Saturation 89.7 % (95.0-99.0) L 01/29/22 Unknown PT/INR, D-dimer PT 15.8 Sec. (12.2-14.9) H 01/28/22 18:56 INR 1.13 (0.87-1.13) 01/28/22 18:56 Abnormal lab findings: Abnormal Labs 01/28/22 01/28/22 01/28/22 12:43 12:43 12:43 RBC 3.27 L Hgb 8.8 L Hct 28.8 L MCH 27 L MCHC RDW 18.0 H [place] % (Auto) 9.2 H Lymph # (Auto) 1.0 L Seg Neutrophils % 73.8 H Seg Neuts % (Manual) Lymphocytes % (Manual) Lymphocytes # (Manual) PT ABG pO2 ABG HCO3 ABG O2 Saturation ABG Base Excess ABG Hemoglobin Oxyhemoglobin Potassium 5.1 H Chloride Carbon Dioxide 38 H BUN 20 H Creatinine 1.6 H Glucose NT-Pro-B Natriuret Pep 1347 H Total Protein Albumin 3.2 L 01/28/22 01/28/22 01/28/22 18:56 18:56 18:56 RBC 3.32 L Hgb 8.8 L Hct 29.4 L MCH 27 L MCHC RDW 17.7 H [place] % (Auto) Lymph # (Auto) Seg Neutrophils % Seg Neuts % (Manual) Lymphocytes % (Manual) Lymphocytes # (Manual) PT 15.8 H ABG pO2 ABG HCO3 ABG O2 Saturation ABG Base Excess ABG Hemoglobin Oxyhemoglobin Potassium Chloride Carbon Dioxide BUN Creatinine 1.6 H Glucose NT-Pro-B Natriuret Pep Total Protein Albumin 01/29/22 01/29/22 01/29/22 04:35 04:35 Unknown RBC Hgb 9.7 L Hct MCH 26 L MCHC 29 L RDW 18.0 H [place] % (Auto) Lymph # (Auto) Seg Neutrophils % Seg Neuts % (Manual) 97.0 H Lymphocytes % (Manual) 2.0 L Lymphocytes # (Manual) 0.1 L PT ABG pO2 58.0 L ABG HCO3 41.5 H ABG O2 Saturation 89.7 L ABG Base Excess 14.0 H ABG Hemoglobin 9.0 L Oxyhemoglobin 87.1 L Potassium 5.6 H Chloride Carbon Dioxide 36 H BUN 21 H Creatinine 1.6 H Glucose 109 H NT-Pro-B Natriuret Pep Total Protein 8.7 H Albumin 3.3 L 01/30/22 01/30/22 04:32 04:32 RBC 3.64 L Hgb 9.5 L Hct MCH 26 L MCHC RDW 18.3 H [place] % (Auto) Lymph # (Auto) Seg Neutrophils % Seg Neuts % (Manual) Lymphocytes % (Manual) Lymphocytes # (Manual) PT ABG pO2 ABG HCO3 ABG O2 Saturation ABG Base Excess ABG Hemoglobin Oxyhemoglobin Potassium Chloride 96.4 L Carbon Dioxide 38 H BUN 28 H Creatinine 1.8 H Glucose 149 H NT-Pro-B Natriuret Pep Total Protein Albumin Chest x-ray: image reviewed Allied health notes reviewed: nursing
--- NOTE | 2022-01-30 12:19 | Progress Note ---
Assessment and Plan - Patient Problems (1) Shortness of breath Current Visit: Yes Status: Acute Plan to address problem: It will be recalled that she presented to the hospital with shortness of breath and hypoxemia. She has a history of morbid obesity, obstructive sleep apnea and chronic hypoventilation syndrome. She admits to poor compliance with her home CPAP, which she finds uncomfortable to wear. Echocardiogram on this presentation shows normal left ventricular systolic function with ejection fraction 55%. Major finding on the echo is severe cor pulmonale with dilated right heart chambers, moderate to severe tricuspid regurgitation, and moderate to severe pulmonary hypertension. We will defer to pulmonary for management of the patient's pulmonary disease which is etiology of her chronic dyspnea and hypoxemia. Subjective Date of service: 01/30/22 Principal diagnosis: Shortness of breath and hypoxemia Interval history: Patient is comfortable in no acute distress. On folder seamer automatic, she has a stable sinus rhythm. No new cardiac events reported. It will be recalled that she presented to the hospital with shortness of breath and hypoxemia. She has a history of morbid obesity, obstructive sleep apnea and chronic hypoventilation syndrome. She admits to poor compliance with her home CPAP, which she finds uncomfortable to wear. Echocardiogram on this presentation shows normal left ventricular systolic function with ejection fraction 55%. Major finding on the echo is severe cor pulmonale with dilated right heart chambers, moderate to severe tricuspid regurgitation, and moderate to severe pulmonary hypertension. Objective Vital Signs Temp Pulse Pulse Pulse Resp Resp BP 01/30/22 11:51 99.2 F 01/30/22 11:00 65 13 153/83 01/30/22 10:31 63 20 145/75 01/30/22 10:00 60 24 145/75 01/30/22 09:31 73 15 132/73 01/30/22 09:02 133/73 01/30/22 09:01 133/73 01/30/22 09:00 72 18 132/73 01/30/22 08:55 01/30/22 08:50 72 20 01/30/22 08:31 72 27 H 152/81 01/30/22 08:00 98.1 F 48 L 68 25 H 152/81 01/30/22 07:30 45 L 23 160/82 01/30/22 07:00 51 L 24 152/85 01/30/22 06:30 49 L 24 152/79 01/30/22 06:00 98.1 F 58 L 20 146/86 01/30/22 04:31 65 19 167/82 01/30/22 04:00 58 L 56 L 24 167/82 01/30/22 03:40 56 L 01/30/22 03:30 67 29 H 169/85 01/30/22 02:30 56 L 24 166/86 01/30/22 01:46 20 01/30/22 01:30 63 29 H 156/83 01/30/22 01:16 16 01/30/22 01:00 55 L 166/84 01/30/22 00:31 65 159/88 01/30/22 00:10 67 01/30/22 00:00 98.9 F 64 151/82 01/29/22 23:31 71 142/79 01/29/22 23:00 67 142/79 01/29/22 22:30 67 132/80 01/29/22 22:00 67 147/83 01/29/22 21:43 16 01/29/22 21:29 54 L 21 146/71 01/29/22 21:13 13 01/29/22 21:00 54 L 65 28 H 24 146/71 01/29/22 20:00 69 15 177/88 01/29/22 19:58 98.6 F 01/29/22 19:30 75 01/29/22 19:00 60 26 H 153/82 01/29/22 18:45 72 26 H 135/65 01/29/22 18:31 58 L 16 162/83 01/29/22 18:01 71 11 L 179/88 01/29/22 17:38 73 179/88 01/29/22 17:30 60 18 179/88 01/29/22 17:00 61 13 148/101 01/29/22 16:30 98.2 F 73 13 178/91 01/29/22 16:00 81 76 19 158/79 01/29/22 15:31 79 28 H 148/68 01/29/22 15:00 78 14 164/75 01/29/22 14:54 78 25 H 01/29/22 14:31 70 25 H 173/92 01/29/22 14:00 63 8 L 186/102 01/29/22 13:30 59 L 13 181/93 07/17/22 13:26 62 191/94 01/29/22 13:00 58 L 11 L 191/94 01/29/22 12:30 71 16 202/106 Pulse Ox 01/30/22 11:51 01/30/22 11:00 89 01/30/22 10:31 88 01/30/22 10:00 90 01/30/22 09:31 100 01/30/22 09:02 01/30/22 09:01 01/30/22 09:00 01/30/22 08:55 94 01/30/22 08:50 01/30/22 08:31 94 01/30/22 08:00 91 01/30/22 07:30 92 01/30/22 07:00 91 01/30/22 06:30 89 01/30/22 06:00 90 01/30/22 04:31 88 01/30/22 04:00 92 01/30/22 03:40 01/30/22 03:30 90 01/30/22 02:30 01/30/22 01:46 01/30/22 01:30 90 01/30/22 01:16 01/30/22 01:00 01/30/22 00:31 01/30/22 00:10 01/30/22 00:00 90 01/29/22 23:31 94 01/29/22 23:00 90 01/29/22 22:30 84 01/29/22 22:00 89 01/29/22 21:43 01/29/22 21:29 91 01/29/22 21:13 01/29/22 21:00 93 01/29/22 20:00 86 01/29/22 19:58 01/29/22 19:30 01/29/22 19:00 96 01/29/22 18:45 86 01/29/22 18:31 83 L 01/29/22 18:01 01/29/22 17:38 01/29/22 17:30 87 01/29/22 17:00 85 01/29/22 16:30 86 01/29/22 16:00 85 01/29/22 15:31 87 01/29/22 15:00 86 01/29/22 14:54 01/29/22 14:31 86 01/29/22 14:00 82 L 01/29/22 13:30 82 L 01/29/22 13:26 01/29/22 13:00 85 01/29/22 12:30 82 L - Physical Examination General: Other (Morbidly obese) HEENT: Positive: PERRL Neck: Positive: neck supple Cardiac: Positive: Reg Rate and Rhythm Lungs: Positive: Decreased Breath Sounds Neuro: Positive: Grossly Intact Abdomen: Positive: Soft Skin: Positive: Clear Extremities: Present: edema (Trace) - Labs and Meds CBC 01/30/22 Range/Units 04:32 WBC 6.4 (4.5-11.0) K/mm3 RBC 3.64 L (3.65-5.03) M/mm3 Hgb 9.5 L (10.1-14.3) gm/dl Hct 31.8 (30.3-42.9) % Plt Count 232 (140-440) K/mm3 Comprehensive Metabolic Panel 01/30/22 Range/Units 04:32 Sodium 141 (137-145) mmol/L Potassium 4.8 (3.6-5.0) mmol/L Chloride 96.4 L (98-107) mmol/L Carbon Dioxide 38 H (22-30) mmol/L BUN 28 H (7-17) mg/dL Creatinine 1.8 H (0.6-1.2) mg/dL Glucose 149 H (65-100) mg/dL Calcium 10.0 (8.4-10.2) mg/dL - Imaging and Cardiology EKG: report reviewed (And his rhythm, heart rate of 72, probable left atrial enlargement) - Allied health notes Allied health notes reviewed: nursing
--- NOTE | 2022-01-30 13:07 | Progress Note ---
<WILNERMOORODRICKBHAVINBREANN - Last Filed: 01/30/22 15:56> Assessment and Plan - Patient Problems (1) Acute exacerbation of CHF (congestive heart failure) Current Visit: Yes Status: Acute Qualifiers: Heart failure type: unspecified Qualified Code(s): I50.9 - Heart failure, unspecified Plan to address problem: ECHO showed right sided heart failure with LVEF 50%. Tank Setter is following-f/u with reces. 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 following-f/u with reces ABG and chest x-ray PRN supplemental oxygen 4L/min (3) Hyperkalemia Current Visit: Yes Status: Acute Plan to address problem: resolved Monitor electrolytes-replace PRN (4) Morbid obesity with BMI of 70 and over, adult Current Visit: Yes Status: Acute Plan to address problem: 2/2 to excess calories Discussed wt management-healthy foods with more fruits and vegetables patient advised to avoid fried foods and foods rich in concentrated sweetners (5) Advance care planning Current Visit: Yes Status: Acute Plan to address problem: Possible d/c to NH when patient is stable patient is Allow natural History Interval history: Patient seen at bedside. She reports hx of shortness of breath, on home oxygen at 4L N/C. I reviewed lab, mar, and v/s. Hyperkalemia-resolved. She reports hx of HTN, CHF and sleep apnea. The high probability of a clinically significant, sudden or life threatening de terioration of the [multi] system(s) required my full and direct attention, intervention and personal management. The aggregate critical care time was [60] minutes. This time is in addition to time spent performing reported procedures but includes the following: [x] Data Review and interpretation [x] Patient assessment and monitoring of vital signs [x] Documentation [x] Medication orders and management Disposition Plan: icu Total Time Spent with Patient (Minutes): 60 Hospitalist Physical - Constitutional Vitals: Temp Pulse Resp BP Pulse Ox 99.2 F 58 L 20 128/55 91 01/30/22 11:51 01/30/22 12:01 01/30/22 12:01 01/30/22 12:01 01/30/22 12:01 General appearance: Present: mild distress, well-nourished, obese, other (Morbidly obese) - Respiratory Respiratory: bilateral: diminished, wheezing - Abdominal General gastrointestinal: distended - Integumentary Integumentary: Present: dry - Psychiatric Psychiatric: appropriate mood/affect, cooperative - Allied Health Allied health notes reviewed: nursing, PT HEART Score - HEART Score EKG: Normal Age: 45-65 Risk factors: > 3 risk factors or hx of atherosclerotic disease Troponin: Troponin T < 0.010 ng/mL (0.00-0.029) 01/29/22 15:59 Troponin: < normal limit - Critical Actions Critical Actions: 0-3 pts:0.9-1.7%risk of adverse cardiac event.Candidate for discharge Results - Labs CBC & Chem 7: 01/30/22 04:32 01/30/22 04:32 Labs: Laboratory Last Values WBC 6.4 K/mm3 (4.5-11.0) 01/30/22 04:32 RBC 3.64 M/mm3 (3.65-5.03) L 01/30/22 04:32 Hgb 9.5 gm/dl (10.1-14.3) L 01/30/22 04:32 Hct 31.8 % (30.3-42.9) 01/30/22 04:32 MCV 87 fl (79-97) 01/30/22 04:32 MCH 26 pg (28-32) L 01/30/22 04:32 MCHC 30 % (30-34) 01/30/22 04:32 RDW 18.3 % (13.2-15.2) H 01/30/22 04:32 Plt Count 232 K/mm3 (140-440) 01/30/22 04:32 Lymph % (Auto) 14.5 % (13.4-35.0) 01/28/22 12:43 [place] % (Auto) 9.2 % (0.0-7.3) H 01/28/22 12:43 Eos % (Auto) 2.0 % (0.0-4.3) 01/28/22 12:43 Baso % (Auto) 0.5 % (0.0-1.8) 01/28/22 12:43 Lymph # (Auto) 1.0 K/mm3 (1.2-5.4) L 01/28/22 12:43 [place] # (Auto) 0.6 K/mm3 (0.0-0.8) 01/28/22 12:43 Eos # (Auto) 0.1 K/mm3 (0.0-0.4) 01/28/22 12:43 Baso # (Auto) 0.0 K/mm3 (0.0-0.1) 01/28/22 12:43 Add Manual Diff Complete 01/29/22 04:35 Total Counted 100 01/29/22 04:35 Seg Neutrophils % Clerk Typist 01/29/22 04:35 Seg Neuts % (Manual) 97.0 % (40.0-70.0) H 01/29/22 04:35 Band Neutrophils % 0 % 01/29/22 04:35 Lymphocytes % (Manual) 2.0 % (13.4-35.0) L 01/29/22 04:35 Reactive Lymphs % (Man) 0 % 01/29/22 04:35 Monocytes % (Manual) 1.0 % (0.0-7.3) 01/29/22 04:35 Eosinophils % (Manual) 0 % (0.0-4.3) 01/29/22 04:35 Basophils % (Manual) 0 % (0.0-1.8) 01/29/22 04:35 Metamyelocytes % 0 % 01/29/22 04:35 Myelocytes % 0 % 01/29/22 04:35 Promyelocytes % 0 % 01/29/22 04:35 Blast Cells % 0 % 01/29/22 04:35 Nucleated RBC % Not Reportable 01/29/22 04:35 Seg Neutrophils # 4.8 K/mm3 (1.8-7.7) 01/28/22 12:43 Seg Neutrophils # Man 5.5 K/mm3 (1.8-7.7) 01/29/22 04:35 Band Neutrophils # 0.0 K/mm3 01/29/22 04:35 Lymphocytes # (Manual) 0.1 K/mm3 (1.2-5.4) L 01/29/22 04:35 Abs React Lymphs (Man) 0.0 K/mm3 01/29/22 04:35 Monocytes # (Manual) 0.1 K/mm3 (0.0-0.8) 01/29/22 04:35 Eosinophils # (Manual) 0.0 K/mm3 (0.0-0.4) 01/29/22 04:35 Basophils # (Manual) 0.0 K/mm3 (0.0-0.1) 01/29/22 04:35 Metamyelocytes # 0.0 K/mm3 01/29/22 04:35 Myelocytes # 0.0 K/mm3 01/29/22 04:35 Promyelocytes # 0.0 K/mm3 01/29/22 04:35 Blast Cells # 0.0 K/mm3 01/29/22 04:35 WBC Morphology Not Reportable 01/29/22 04:35 Hypersegmented Neuts Not Reportable 01/29/22 04:35 Hyposegmented Neuts Not Reportable 01/29/22 04:35 Hypogranular Neuts Not Reportable 01/29/22 04:35 Smudge Cells Not Reportable 01/29/22 04:35 Toxic Granulation Not Reportable 01/29/22 04:35 Toxic Vacuolation Not Reportable 01/29/22 04:35 Dohle Bodies Not Reportable 01/29/22 04:35 Pelger-Huet Anomaly Not Reportable 01/29/22 04:35 Papa Rods Not Reportable 01/29/22 04:35 Platelet Estimate Consistent w auto 01/29/22 04:35 Clumped Platelets Not Reportable 01/29/22 04:35 Plt Clumps, EDTA Not Reportable 01/29/22 04:35 Large Platelets Not Reportable 01/29/22 04:35 Giant Platelets Not Reportable 01/29/22 04:35 Platelet Satelliting Not Reportable 01/29/22 04:35 Plt Morphology Comment Not Reportable 01/29/22 04:35 RBC Morphology Not Reportable 01/29/22 04:35 Dimorphic RBCs Not Reportable 01/29/22 04:35 Polychromasia Not Reportable 01/29/22 04:35 Hypochromasia Not Reportable 01/29/22 04:35 Poikilocytosis Not Reportable 01/29/22 04:35 Anisocytosis 1+ 01/29/22 04:35 Microcytosis Not Reportable 01/29/22 04:35 Macrocytosis Not Reportable 01/29/22 04:35 Spherocytes Not Reportable 01/29/22 04:35 Pappenheimer Bodies Not Reportable 01/29/22 04:35 Sickle Cells Not Reportable 01/29/22 04:35 Target Cells Not Reportable 01/29/22 04:35 Tear Drop Cells Not Reportable 01/29/22 04:35 Ovalocytes Not Reportable 01/29/22 04:35 Helmet Cells Not Reportable 01/29/22 04:35 Landry-Callender Bodies Not Reportable 01/29/22 04:35 [place] Rings Not Reportable 01/29/22 04:35 [place] Cells Not Reportable 01/29/22 04:35 Bite Cells Not Reportable 01/29/22 04:35 Crenated Cell Not Reportable 01/29/22 04:35 Elliptocytes Not Reportable 01/29/22 04:35 Acanthocytes (Spur) Not Reportable 01/29/22 04:35 Rouleaux Not Reportable 01/29/22 04:35 Hemoglobin C Crystals Not Reportable 01/29/22 04:35 Schistocytes Not Reportable 01/29/22 04:35 Malaria parasites Not Reportable 01/29/22 04:35 Guillermo Bodies Not Reportable 01/29/22 04:35 Hem Pathologist Commnt No 01/29/22 04:35 PT 15.8 Sec. (12.2-14.9) H 01/28/22 18:56 INR 1.13 (0.87-1.13) 01/28/22 18:56 APTT 33.9 Sec. (24.2-36.6) 01/28/22 18:56 ABG pH 7.366 pH Units (7.350-7.450) 01/29/22 Unknown ABG pCO2 74.0 mm Hg 01/29/22 Unknown ABG pO2 58.0 mm Hg (80.0-90.0) L 01/29/22 Unknown ABG HCO3 41.5 mmol/L (20.0-26.0) H 01/29/22 Unknown ABG O2 Saturation 89.7 % (95.0-99.0) L 01/29/22 Unknown ABG O2 Content 11.1 (0.0-44) 01/29/22 Unknown ABG Base Excess 14.0 mmol/L (-2.0-3.0) H 01/29/22 Unknown ABG Hemoglobin 9.0 gm/dl (12.0-16.0) L 01/29/22 Unknown ABG Carboxyhemoglobin 2.5 % (0.0-5.0) 01/29/22 Unknown ABG Methemoglobin 0.4 % (0.0-1.5) 01/29/22 Unknown Oxyhemoglobin 87.1 % (95.0-99.0) L 01/29/22 Unknown FiO2 36 % 01/29/22 Unknown Sodium 141 mmol/L (137-145) 01/30/22 04:32 Potassium 4.8 mmol/L (3.6-5.0) 01/30/22 04:32 Chloride 96.4 mmol/L (98-107) L 01/30/22 04:32 Carbon Dioxide 38 mmol/L (22-30) H 01/30/22 04:32 Anion Gap 11 mmol/L 01/30/22 04:32 BUN 28 mg/dL (7-17) H 01/30/22 04:32 Creatinine 1.8 mg/dL (0.6-1.2) H 01/30/22 04:32 Estimated GFR 35 ml/min 01/30/22 04:32 BUN/Creatinine Ratio 16 % 01/30/22 04:32 Glucose 149 mg/dL (65-100) H 01/30/22 04:32 Calcium 10.0 mg/dL (8.4-10.2) 01/30/22 04:32 Total Bilirubin 0.60 mg/dL (0.1-1.2) 01/29/22 04:35 AST 14 units/L (5-40) 01/29/22 04:35 ALT 9 units/L (7-56) 01/29/22 04:35 Alkaline Phosphatase 117 units/L (35-129) 01/29/22 04:35 Troponin T < 0.010 ng/mL (0.00-0.029) 01/29/22 15:59 NT-Pro-B Natriuret Pep 1347 pg/mL (0-900) H 01/28/22 12:43 Total Protein 8.7 g/dL (6.3-8.2) H 01/29/22 04:35 Albumin 3.3 g/dL (3.9-5) L 01/29/22 04:35 Albumin/Globulin Ratio 0.6 % 01/29/22 04:35 Small/IV: Voiding Method Indwelling Catheter Active Medications - Current Medications Current Medications: Generic Name Dose Route Start Last Admin Trade Name Freq PRN Reason Stop Dose Admin Acetaminophen 650 mg 01/28/22 18:16 Acetaminophen 325 Mg Tab PO Q4H PRN Pain MILD(1-3)/Fever >100.5/CHAVEZ Albuterol 2.5 mg 01/28/22 18:12 Albuterol 2.5 Mg/3 Ml Nebu IH Q4HRT PRN Shortness Of Breath Albuterol/Ipratropium 1 ampul 01/30/22 08:00 01/30/22 08:53 Ipratropium/Albuterol Sulfate 3 Ml Ampul.Neb IH 1 ampul TIDRT MARCELLA Administration Amiodarone HCl 200 mg 01/28/22 19:00 01/30/22 09:02 Amiodarone 200 Mg Tab PO 200 mg QDAY MARCELLA Administration Amlodipine Besylate 10 mg 01/28/22 19:00 01/30/22 09:01 Amlodipine 10 Mg Tab PO 10 mg QDAY MARCELLA Administration Apixaban 5 mg 01/28/22 22:00 01/30/22 09:01 Apixaban 5 Mg Tab PO 5 mg Q12HR MARCELLA Administration Protocol Ascorbic Acid 500 mg 01/28/22 22:00 01/30/22 09:01 Ascorbic Acid 500 Mg Tab PO 500 mg BID MARCELLA Administration Aspirin 81 mg 01/28/22 19:00 01/30/22 09:00 Aspirin 81 Mg Tab Chew PO 81 mg QDAY MARCELLA Administration Atenolol 25 mg 01/28/22 19:00 01/30/22 09:02 Atenolol 25 Mg Tab PO 25 mg DAILY MARCELLA Administration Atorvastatin Calcium 40 mg 01/28/22 22:00 01/29/22 20:59 Atorvastatin 40 Mg Tab PO 40 mg QHS MARCELLA Administration Diltiazem HCl 120 mg 01/28/22 19:00 01/30/22 09:01 Diltiazem Cd 120 Mg Cap PO 120 mg QDAY MARCELLA Administration Diphenhydramine HCl 25 mg 01/28/22 20:57 01/29/22 21:14 Diphenhydramine 50 Mg/Ml Vial IV 25 mg Q4H PRN Administration Itching Famotidine 20 mg 01/28/22 22:00 01/30/22 09:01 Famotidine 20 Mg Tab PO 20 mg BID MARCELLA Administration Furosemide 40 mg 01/29/22 06:00 01/30/22 05:54 Furosemide 40 Mg/4 Ml Inj IV 40 mg 0600,1800 MARCELLA Administration Gabapentin 300 mg 01/28/22 22:00 01/30/22 09:01 Gabapentin 300 Mg Cap PO 300 mg BID MARCELLA Administration Hydralazine HCl 100 mg 01/29/22 14:00 01/30/22 08:02 Hydralazine 100 Mg Tab PO 100 mg TID MARCELLA Administration Labetalol HCl 10 mg 01/29/22 14:00 01/29/22 17:38 Labetalol 20 Mg/4 Ml Inj IV 10 mg Q4HR PRN Administration sbp>160 Methylprednisolone Sodium Succinate 60 mg 01/28/22 22:00 01/30/22 05:54 Methylprednisolone Sod Succinate 125 Mg/2 Ml Inj IV 60 mg Q8HR MARCELLA Administration Morphine Sulfate 2 mg 01/28/22 18:39 01/30/22 09:00 Morphine 2 Mg/1 Ml Inj IV 2 mg Q4H PRN Administration Pain, Moderate (4-6) Ondansetron HCl 4 mg 01/28/22 18:16 Ondansetron 4 Mg/2 Ml Inj IV Q8H PRN Nausea And Vomiting Pantoprazole Sodium 40 mg 01/30/22 13:00 Pantoprazole 40 Mg Tab PO QDAC MARCELLA Sodium Chloride 10 ml 01/28/22 22:00 01/30/22 09:02 Sodium Chloride 0.9% 10 Ml Flush Syringe IV 10 ml BID MARCELLA Administration Sodium Chloride 10 ml 01/28/22 18:16 Sodium Chloride 0.9% 10 Ml Flush Syringe IV PRN PRN LINE FLUSH Tramadol HCl 50 mg 01/28/22 18:12 01/29/22 10:09 Tramadol 50 Mg Tab PO 50 mg Q6H PRN Administration Pain, Moderate (4-6) Zinc Sulfate 220 mg 01/28/22 22:00 01/30/22 09:01 Zinc Sulfate 220 Mg Cap PO 220 mg BID MARCELLA Administration <KALE MCDANIEL - Last Filed: 01/31/22 13:00> Assessment and Plan Assessment and plan: I saw and evaluated the patient. Discussed with the nurse practitioner and agree with their findings and plan as documented in this note. Hospitalist Physical - Constitutional Vitals: Temp Pulse Resp BP Pulse Ox 97 F L 64 20 130/69 95 01/31/22 10:22 01/31/22 10:25 01/31/22 10:22 01/31/22 10:25 01/31/22 10:22 HEART Score - HEART Score Troponin: Troponin T < 0.010 ng/mL (0.00-0.029) 01/29/22 15:59 Results - Labs CBC & Chem 7: 01/30/22 04:32 01/31/22 05:30 Labs: Laboratory Last Values WBC 6.4 K/mm3 (4.5-11.0) 01/30/22 04:32 RBC 3.64 M/mm3 (3.65-5.03) L 01/30/22 04:32 Hgb 9.5 gm/dl (10.1-14.3) L 01/30/22 04:32 Hct 31.8 % (30.3-42.9) 01/30/22 04:32 MCV 87 fl (79-97) 01/30/22 04:32 MCH 26 pg (28-32) L 01/30/22 04:32 MCHC 30 % (30-34) 01/30/22 04:32 RDW 18.3 % (13.2-15.2) H 01/30/22 04:32 Plt Count 232 K/mm3 (140-440) 01/30/22 04:32 Lymph % (Auto) 14.5 % (13.4-35.0) 01/28/22 12:43 [place] % (Auto) 9.2 % (0.0-7.3) H 01/28/22 12:43 Eos % (Auto) 2.0 % (0.0-4.3) 01/28/22 12:43 Baso % (Auto) 0.5 % (0.0-1.8) 01/28/22 12:43 Lymph # (Auto) 1.0 K/mm3 (1.2-5.4) L 01/28/22 12:43 [place] # (Auto) 0.6 K/mm3 (0.0-0.8) 01/28/22 12:43 Eos # (Auto) 0.1 K/mm3 (0.0-0.4) 01/28/22 12:43 Baso # (Auto) 0.0 K/mm3 (0.0-0.1) 01/28/22 12:43 Add Manual Diff Complete 01/29/22 04:35 Total Counted 100 01/29/22 04:35 Seg Neutrophils % Clerk Typist 01/29/22 04:35 Seg Neuts % (Manual) 97.0 % (40.0-70.0) H 01/29/22 04:35 Band Neutrophils % 0 % 01/29/22 04:35 Lymphocytes % (Manual) 2.0 % (13.4-35.0) L 01/29/22 04:35 Reactive Lymphs % (Man) 0 % 01/29/22 04:35 Monocytes % (Manual) 1.0 % (0.0-7.3) 01/29/22 04:35 Eosinophils % (Manual) 0 % (0.0-4.3) 01/29/22 04:35 Basophils % (Manual) 0 % (0.0-1.8) 01/29/22 04:35 Metamyelocytes % 0 % 01/29/22 04:35 Myelocytes % 0 % 01/29/22 04:35 Promyelocytes % 0 % 01/29/22 04:35 Blast Cells % 0 % 01/29/22 04:35 Nucleated RBC % Not Reportable 01/29/22 04:35 Seg Neutrophils # 4.8 K/mm3 (1.8-7.7) 01/28/22 12:43 Seg Neutrophils # Man 5.5 K/mm3 (1.8-7.7) 01/29/22 04:35 Band Neutrophils # 0.0 K/mm3 01/29/22 04:35 Lymphocytes # (Manual) 0.1 K/mm3 (1.2-5.4) L 01/29/22 04:35 Abs React Lymphs (Man) 0.0 K/mm3 01/29/22 04:35 Monocytes # (Manual) 0.1 K/mm3 (0.0-0.8) 01/29/22 04:35 Eosinophils # (Manual) 0.0 K/mm3 (0.0-0.4) 01/29/22 04:35 Basophils # (Manual) 0.0 K/mm3 (0.0-0.1) 01/29/22 04:35 Metamyelocytes # 0.0 K/mm3 01/29/22 04:35 Myelocytes # 0.0 K/mm3 01/29/22 04:35 Promyelocytes # 0.0 K/mm3 01/29/22 04:35 Blast Cells # 0.0 K/mm3 01/29/22 04:35 WBC Morphology Not Reportable 01/29/22 04:35 Hypersegmented Neuts Not Reportable 01/29/22 04:35 Hyposegmented Neuts Not Reportable 01/29/22 04:35 Hypogranular Neuts Not Reportable 01/29/22 04:35 Smudge Cells Not Reportable 01/29/22 04:35 Toxic Granulation Not Reportable 01/29/22 04:35 Toxic Vacuolation Not Reportable 01/29/22 04:35 Dohle Bodies Not Reportable 01/29/22 04:35 Pelger-Huet Anomaly Not Reportable 01/29/22 04:35 Papa Rods Not Reportable 01/29/22 04:35 Platelet Estimate Consistent w auto 01/29/22 04:35 Clumped Platelets Not Reportable 01/29/22 04:35 Plt Clumps, EDTA Not Reportable 01/29/22 04:35 Large Platelets Not Reportable 01/29/22 04:35 Giant Platelets Not Reportable 01/29/22 04:35 Platelet Satelliting Not Reportable 01/29/22 04:35 Plt Morphology Comment Not Reportable 01/29/22 04:35 RBC Morphology Not Reportable 01/29/22 04:35 Dimorphic RBCs Not Reportable 01/29/22 04:35 Polychromasia Not Reportable 01/29/22 04:35 Hypochromasia Not Reportable 01/29/22 04:35 Poikilocytosis Not Reportable 01/29/22 04:35 Anisocytosis 1+ 01/29/22 04:35 Microcytosis Not Reportable 01/29/22 04:35 Macrocytosis Not Reportable 01/29/22 04:35 Spherocytes Not Reportable 01/29/22 04:35 Pappenheimer Bodies Not Reportable 01/29/22 04:35 Sickle Cells Not Reportable 01/29/22 04:35 Target Cells Not Reportable 01/29/22 04:35 Tear Drop Cells Not Reportable 01/29/22 04:35 Ovalocytes Not Reportable 01/29/22 04:35 Helmet Cells Not Reportable 01/29/22 04:35 Landry-Callender Bodies Not Reportable 01/29/22 04:35 [place] Rings Not Reportable 01/29/22 04:35 [place]yann Cells Not Reportable 01/29/22 04:35 Bite Cells Not Reportable 01/29/22 04:35 Crenated Cell Not Reportable 01/29/22 04:35 Elliptocytes Not Reportable 01/29/22 04:35 Acanthocytes (Spur) Not Reportable 01/29/22 04:35 Rouleaux Not Reportable 01/29/22 04:35 Hemoglobin C Crystals Not Reportable 01/29/22 04:35 Schistocytes Not Reportable 01/29/22 04:35 Malaria parasites Not Reportable 01/29/22 04:35 Guillermo Bodies Not Reportable 01/29/22 04:35 Hem Pathologist Commnt No 01/29/22 04:35 PT 15.8 Sec. (12.2-14.9) H 01/28/22 18:56 INR 1.13 (0.87-1.13) 01/28/22 18:56 APTT 33.9 Sec. (24.2-36.6) 01/28/22 18:56 ABG pH 7.366 pH Units (7.350-7.450) 01/29/22 Unknown ABG pCO2 74.0 mm Hg 01/29/22 Unknown ABG pO2 58.0 mm Hg (80.0-90.0) L 01/29/22 Unknown ABG HCO3 41.5 mmol/L (20.0-26.0) H 01/29/22 Unknown ABG O2 Saturation 89.7 % (95.0-99.0) L 01/29/22 Unknown ABG O2 Content 11.1 (0.0-44) 01/29/22 Unknown ABG Base Excess 14.0 mmol/L (-2.0-3.0) H 01/29/22 Unknown ABG Hemoglobin 9.0 gm/dl (12.0-16.0) L 01/29/22 Unknown ABG Carboxyhemoglobin 2.5 % (0.0-5.0) 01/29/22 Unknown ABG Methemoglobin 0.4 % (0.0-1.5) 01/29/22 Unknown Oxyhemoglobin 87.1 % (95.0-99.0) L 01/29/22 Unknown FiO2 36 % 01/29/22 Unknown Sodium 141 mmol/L (137-145) 01/30/22 04:32 Potassium 4.8 mmol/L (3.6-5.0) 01/30/22 04:32 Chloride 96.4 mmol/L (98-107) L 01/30/22 04:32 Carbon Dioxide 38 mmol/L (22-30) H 01/30/22 04:32 Anion Gap 11 mmol/L 01/30/22 04:32 BUN 28 mg/dL (7-17) H 01/30/22 04:32 Creatinine 1.9 mg/dL (0.6-1.2) H 01/31/22 05:30 Estimated GFR 33 ml/min 01/31/22 05:30 BUN/Creatinine Ratio 16 % 01/30/22 04:32 Glucose 149 mg/dL (65-100) H 01/30/22 04:32 Calcium 10.0 mg/dL (8.4-10.2) 01/30/22 04:32 Total Bilirubin 0.60 mg/dL (0.1-1.2) 01/29/22 04:35 AST 14 units/L (5-40) 01/29/22 04:35 ALT 9 units/L (7-56) 01/29/22 04:35 Alkaline Phosphatase 117 units/L (35-129) 01/29/22 04:35 Troponin T < 0.010 ng/mL (0.00-0.029) 01/29/22 15:59 NT-Pro-B Natriuret Pep 1347 pg/mL (0-900) H 01/28/22 12:43 Total Protein 8.7 g/dL (6.3-8.2) H 01/29/22 04:35 Albumin 3.3 g/dL (3.9-5) L 01/29/22 04:35 Albumin/Globulin Ratio 0.6 % 01/29/22 04:35 Small/IV: Voiding Method Indwelling Catheter Active Medications - Current Medications Current Medications: Generic Name Dose Route Start Last Admin Trade Name Freq PRN Reason Stop Dose Admin Acetaminophen 650 mg 01/28/22 18:16 Acetaminophen 325 Mg Tab PO Q4H PRN Pain MILD(1-3)/Fever >100.5/CHAVEZ Albuterol 2.5 mg 01/28/22 18:12 Albuterol 2.5 Mg/3 Ml Nebu IH Q4HRT PRN Shortness Of Breath Albuterol/Ipratropium 1 ampul 01/30/22 08:00 01/31/22 07:11 Ipratropium/Albuterol Sulfate 3 Ml Ampul.Neb IH 1 ampul TIDRT MARCELLA Administration Amiodarone HCl 200 mg 01/28/22 19:00 01/31/22 10:25 Amiodarone 200 Mg Tab PO 200 mg QDAY MARCELLA Administration Amlodipine Besylate 10 mg 01/28/22 19:00 01/31/22 10:25 Amlodipine 10 Mg Tab PO 10 mg QDAY MARCELLA Administration Apixaban 5 mg 01/28/22 22:00 01/31/22 10:24 Apixaban 5 Mg Tab PO 5 mg Q12HR MARCELLA Administration Protocol Ascorbic Acid 500 mg 01/28/22 22:00 01/31/22 10:25 Ascorbic Acid 500 Mg Tab PO 500 mg BID MARCELLA Administration Aspirin 81 mg 01/28/22 19:00 01/31/22 10:24 Aspirin 81 Mg Tab Chew PO 81 mg QDAY MARCELLA Administration Atenolol 25 mg 01/28/22 19:00 01/31/22 10:29 Atenolol 25 Mg Tab PO 25 mg DAILY MARCELLA Administration Atorvastatin Calcium 40 mg 01/28/22 22:00 01/30/22 21:31 Atorvastatin 40 Mg Tab PO 40 mg QHS MARCELLA Administration Diltiazem HCl 120 mg 01/28/22 19:00 01/30/22 09:01 Diltiazem Cd 120 Mg Cap PO 120 mg QDAY MARCELLA Administration Diphenhydramine HCl 25 mg 01/28/22 20:57 01/29/22 21:14 Diphenhydramine 50 Mg/Ml Vial IV 25 mg Q4H PRN Administration Itching Famotidine 20 mg 01/28/22 22:00 01/31/22 10:25 Famotidine 20 Mg Tab PO 20 mg BID MARCELLA Administration Furosemide 40 mg 01/29/22 06:00 01/31/22 05:46 Furosemide 40 Mg/4 Ml Inj IV 40 mg 0600,1800 MARCELLA Administration Gabapentin 300 mg 01/28/22 22:00 01/31/22 10:25 Gabapentin 300 Mg Cap PO 300 mg BID MARCELLA Administration Hydralazine HCl 100 mg 01/29/22 14:00 01/30/22 21:32 Hydralazine 100 Mg Tab PO 100 mg TID MARCELLA Administration Labetalol HCl 10 mg 01/29/22 14:00 01/29/22 17:38 Labetalol 20 Mg/4 Ml Inj IV 10 mg Q4HR PRN Administration sbp>160 Methylprednisolone Sodium Succinate 60 mg 01/28/22 22:00 01/31/22 05:46 Methylprednisolone Sod Succinate 125 Mg/2 Ml Inj IV 60 mg Q8HR MARCELLA Administration Morphine Sulfate 2 mg 01/28/22 18:39 01/31/22 10:35 Morphine 2 Mg/1 Ml Inj IV 2 mg Q4H PRN Administration Pain, Moderate (4-6) Ondansetron HCl 4 mg 01/28/22 18:16 Ondansetron 4 Mg/2 Ml Inj IV Q8H PRN Nausea And Vomiting Pantoprazole Sodium 40 mg 01/30/22 13:00 01/31/22 10:25 Pantoprazole 40 Mg Tab PO 40 mg QDAC MARCELLA Administration Sodium Chloride 10 ml 01/28/22 22:00 01/31/22 10:26 Sodium Chloride 0.9% 10 Ml Flush Syringe IV 10 ml BID MARCELLA Administration Sodium Chloride 10 ml 01/28/22 18:16 Sodium Chloride 0.9% 10 Ml Flush Syringe IV PRN PRN LINE FLUSH Tramadol HCl 50 mg 01/28/22 18:12 01/29/22 10:09 Tramadol 50 Mg Tab PO 50 mg Q6H PRN Administration Pain, Moderate (4-6) Zinc Sulfate 220 mg 01/28/22 22:00 01/31/22 10:25 Zinc Sulfate 220 Mg Cap PO 220 mg BID MARCELLA Administration
[2022-01-30] MEDS: PANTOPRAZOLE 40 MG TAB PO SCH (13:34)
--- NOTE | 2022-01-30 15:34 | XRay Report ---
ABDOMEN 1 VIEW INDICATION / CLINICAL INFORMATION: Kidney stone. COMPARISON: None available. FINDINGS: TUBES / LINES: None. BOWEL GAS PATTERN: No significant abnormality. FREE AIR / EXTRALUMINAL GAS: None seen. ADDITIONAL FINDINGS: No radiodensity overlying the renal fossae to suggest renal stone. IMPRESSION: 1. No radiodensity overlying the renal fossae to suggest renal stone. Signer Name: Zain Villatoro DO Signed: 01/30/2022 3:25 PM Workstation Name: [id number]
[2022-01-31] MEDS: methylPREDNISolone Sod Succinate 125 MG/2 ML INJ IV SCH ×3 (05:46→21:27)
[2022-01-31] MEDS: FUROSEMIDE 40 MG/4 ML INJ IV SCH ×2 (05:46→17:59)
[2022-01-31] MEDS: MORPHINE 2 MG/1 ML INJ IV PRN ×4 (05:54→22:04)
[2022-01-31] MEDS: IPRATROPIUM/ALBUTEROL SULFATE 3 ML AMPUL.NEB IH SCH ×3 (07:11→21:13)
--- NOTE | 2022-01-31 09:51 | Progress Note ---
Assessment and Plan Assessment and plan: 64-year-old female with morbid obesity-current BMI of 70.7 and weighing about 400 pounds on home oxygen up to 4 L nasal cannula comes in for shortness of breath chest pain, headache and diarrhea. Patient states that she has been short of breath for last couple years and her oxygen levels usually run around 85-90. She has been able to walk to the restroom and ADLs till 1 month ago. Now she is nearly bedridden. Uses bedside commode. No fever or chills. Patient is very hypoxic in the emergency room with oxygen at low 80s. Patient is supposed to be on CPAP at home for obstructive sleep apnea but does not use because of inconvenience. Hospital Course: 01/29: elevated BP this Am. restarted home medications, added hydralazine for BP optimization. Continue diuresis with lasix 40 IV BID. Patient requested to be DNR/AND. Paper work signed and status updated in chart. Follow kidney fx on serial bmp. Can likely be downgraded to floor tomorrow. Patient is bedbound due to morbid obesity, family having trouble supporting her at home. CM/SW consulted for assistance. 01/31: Patient still requiring 5 L O2 to maintain saturations greater than 92%. We will obtain physical therapy evaluation to assess disposition. Assessment and Plan: #Acute respiratory failure with hypoxia Currently on supplemental oxygen 5 L/min Suspect this is heart failure and OHS related Diuresis as outlined below -Continue afterload reduction and diuresis Pulmonary consultation #Acute decompensated heart failure #Atypical chest pain - BNP: 1347 - CXR findings consistent with pulmonary edema from congestive heart failure -ECHO ordered -daily weights -I/O's -Lasix IV BID -Cardiology Consultation #Obesity hypoventilation syndrome Elevated BMI, recommend BiPAP nightly #Paroxysmal atrial fibrillation -Continue home diltiazem and Eliquis #Essential hypertension -Amlodipine, atenolol, Lasix Added hydralazine 100 mg p.o. 3 times daily #Hyperkalemia 5.5, administered IV calcium gluconate on admission Suspect this is Aldactone related, hold Aldactone for that at this time No indication for Kayexalate at this time however may need if potassium keeps increasing Trend on serial BMP #Acute kidney injury due to vasomotor nephropathy - Admission Cr: 1.6, Baseline Cr: 1.21.6 - etiology: Possibly medication related - avoid nephrotoxic agents - monitor I/O's - renal adjust medications - daily renal profile #Morbid Obesity - BMI 70.7 - Counseled patient on the importance of weight loss, incorporating exercise, and dietary changes (lean meats, fresh fruits and vegetables, and water intake). Patient expresses understanding. History Interval history: No new issues overnight Hospitalist Physical - Constitutional Vitals: Temp Pulse Resp BP Pulse Ox 97.6 F 61 16 159/84 95 01/31/22 05:44 01/31/22 07:11 01/31/22 07:11 01/31/22 05:44 01/31/22 07:11 General appearance: Present: no acute distress, well-nourished, obese, other (Morbidly obese) - EENT Eyes: Present: PERRL, EOM intact ENT: hearing intact, clear oral mucosa, dentition normal - Neck Neck: Present: supple, normal ROM - Respiratory Respiratory effort: normal Respiratory: bilateral: CTA - Cardiovascular Rhythm: regular Heart Sounds: Present: S1 & S2. Absent: gallop, rub - Extremities Extremities: no ischemia, No edema, Full ROM - Abdominal General gastrointestinal: soft, non-tender, non-distended, normal bowel sounds - Integumentary Integumentary: Present: clear, warm, dry - Neurologic Neurologic: CNII-XII intact, moves all extremities HEART Score - HEART Score EKG: Normal Age: 45-65 Risk factors: > 3 risk factors or hx of atherosclerotic disease Troponin: Troponin T < 0.010 ng/mL (0.00-0.029) 01/29/22 15:59 Troponin: < normal limit - Critical Actions Critical Actions: 0-3 pts:0.9-1.7%risk of adverse cardiac event.Candidate for discharge Results - Labs CBC & Chem 7: 01/30/22 04:32 01/31/22 05:30 Labs: Laboratory Last Values WBC 6.4 K/mm3 (4.5-11.0) 01/30/22 04:32 RBC 3.64 M/mm3 (3.65-5.03) L 01/30/22 04:32 Hgb 9.5 gm/dl (10.1-14.3) L 01/30/22 04:32 Hct 31.8 % (30.3-42.9) 01/30/22 04:32 MCV 87 fl (79-97) 01/30/22 04:32 MCH 26 pg (28-32) L 01/30/22 04:32 MCHC 30 % (30-34) 01/30/22 04:32 RDW 18.3 % (13.2-15.2) H 01/30/22 04:32 Plt Count 232 K/mm3 (140-440) 01/30/22 04:32 Lymph % (Auto) 14.5 % (13.4-35.0) 01/28/22 12:43 [place] % (Auto) 9.2 % (0.0-7.3) H 01/28/22 12:43 Eos % (Auto) 2.0 % (0.0-4.3) 01/28/22 12:43 Baso % (Auto) 0.5 % (0.0-1.8) 01/28/22 12:43 Lymph # (Auto) 1.0 K/mm3 (1.2-5.4) L 01/28/22 12:43 [place] # (Auto) 0.6 K/mm3 (0.0-0.8) 01/28/22 12:43 Eos # (Auto) 0.1 K/mm3 (0.0-0.4) 01/28/22 12:43 Baso # (Auto) 0.0 K/mm3 (0.0-0.1) 01/28/22 12:43 Add Manual Diff Complete 01/29/22 04:35 Total Counted 100 01/29/22 04:35 Seg Neutrophils % Beading Installer 01/29/22 04:35 Seg Neuts % (Manual) 97.0 % (40.0-70.0) H 01/29/22 04:35 Band Neutrophils % 0 % 01/29/22 04:35 Lymphocytes % (Manual) 2.0 % (13.4-35.0) L 01/29/22 04:35 Reactive Lymphs % (Man) 0 % 01/29/22 04:35 Monocytes % (Manual) 1.0 % (0.0-7.3) 01/29/22 04:35 Eosinophils % (Manual) 0 % (0.0-4.3) 01/29/22 04:35 Basophils % (Manual) 0 % (0.0-1.8) 01/29/22 04:35 Metamyelocytes % 0 % 01/29/22 04:35 Myelocytes % 0 % 01/29/22 04:35 Promyelocytes % 0 % 01/29/22 04:35 Blast Cells % 0 % 01/29/22 04:35 Nucleated RBC % Not Reportable 01/29/22 04:35 Seg Neutrophils # 4.8 K/mm3 (1.8-7.7) 01/28/22 12:43 Seg Neutrophils # Man 5.5 K/mm3 (1.8-7.7) 01/29/22 04:35 Band Neutrophils # 0.0 K/mm3 01/29/22 04:35 Lymphocytes # (Manual) 0.1 K/mm3 (1.2-5.4) L 01/29/22 04:35 Abs React Lymphs (Man) 0.0 K/mm3 01/29/22 04:35 Monocytes # (Manual) 0.1 K/mm3 (0.0-0.8) 01/29/22 04:35 Eosinophils # (Manual) 0.0 K/mm3 (0.0-0.4) 01/29/22 04:35 Basophils # (Manual) 0.0 K/mm3 (0.0-0.1) 01/29/22 04:35 Metamyelocytes # 0.0 K/mm3 01/29/22 04:35 Myelocytes # 0.0 K/mm3 01/29/22 04:35 Promyelocytes # 0.0 K/mm3 01/29/22 04:35 Blast Cells # 0.0 K/mm3 01/29/22 04:35 WBC Morphology Not Reportable 01/29/22 04:35 Hypersegmented Neuts Not Reportable 01/29/22 04:35 Hyposegmented Neuts Not Reportable 01/29/22 04:35 Hypogranular Neuts Not Reportable 01/29/22 04:35 Smudge Cells Not Reportable 01/29/22 04:35 Toxic Granulation Not Reportable 01/29/22 04:35 Toxic Vacuolation Not Reportable 01/29/22 04:35 Dohle Bodies Not Reportable 01/29/22 04:35 Pelger-Huet Anomaly Not Reportable 01/29/22 04:35 Papa Rods Not Reportable 01/29/22 04:35 Platelet Estimate Consistent w auto 01/29/22 04:35 Clumped Platelets Not Reportable 01/29/22 04:35 Plt Clumps, EDTA Not Reportable 01/29/22 04:35 Large Platelets Not Reportable 01/29/22 04:35 Giant Platelets Not Reportable 01/29/22 04:35 Platelet Satelliting Not Reportable 01/29/22 04:35 Plt Morphology Comment Not Reportable 01/29/22 04:35 RBC Morphology Not Reportable 01/29/22 04:35 Dimorphic RBCs Not Reportable 01/29/22 04:35 Polychromasia Not Reportable 01/29/22 04:35 Hypochromasia Not Reportable 01/29/22 04:35 Poikilocytosis Not Reportable 01/29/22 04:35 Anisocytosis 1+ 01/29/22 04:35 Microcytosis Not Reportable 01/29/22 04:35 Macrocytosis Not Reportable 01/29/22 04:35 Spherocytes Not Reportable 01/29/22 04:35 Pappenheimer Bodies Not Reportable 01/29/22 04:35 Sickle Cells Not Reportable 01/29/22 04:35 Target Cells Not Reportable 01/29/22 04:35 Tear Drop Cells Not Reportable 01/29/22 04:35 Ovalocytes Not Reportable 01/29/22 04:35 Helmet Cells Not Reportable 01/29/22 04:35 Landry-Brewer Bodies Not Reportable 01/29/22 04:35 Otter Rings Not Reportable 01/29/22 04:35 [place] Cells Not Reportable 01/29/22 04:35 Bite Cells Not Reportable 01/29/22 04:35 Crenated Cell Not Reportable 01/29/22 04:35 Elliptocytes Not Reportable 01/29/22 04:35 Acanthocytes (Spur) Not Reportable 01/29/22 04:35 Rouleaux Not Reportable 01/29/22 04:35 Hemoglobin C Crystals Not Reportable 01/29/22 04:35 Schistocytes Not Reportable 01/29/22 04:35 Malaria parasites Not Reportable 01/29/22 04:35 Guillermo Bodies Not Reportable 01/29/22 04:35 Hem Pathologist Commnt No 01/29/22 04:35 PT 15.8 Sec. (12.2-14.9) H 01/28/22 18:56 INR 1.13 (0.87-1.13) 01/28/22 18:56 APTT 33.9 Sec. (24.2-36.6) 01/28/22 18:56 ABG pH 7.366 pH Units (7.350-7.450) 01/29/22 Unknown ABG pCO2 74.0 mm Hg 01/29/22 Unknown ABG pO2 58.0 mm Hg (80.0-90.0) L 01/29/22 Unknown ABG HCO3 41.5 mmol/L (20.0-26.0) H 01/29/22 Unknown ABG O2 Saturation 89.7 % (95.0-99.0) L 01/29/22 Unknown ABG O2 Content 11.1 (0.0-44) 01/29/22 Unknown ABG Base Excess 14.0 mmol/L (-2.0-3.0) H 01/29/22 Unknown ABG Hemoglobin 9.0 gm/dl (12.0-16.0) L 01/29/22 Unknown ABG Carboxyhemoglobin 2.5 % (0.0-5.0) 01/29/22 Unknown ABG Methemoglobin 0.4 % (0.0-1.5) 01/29/22 Unknown Oxyhemoglobin 87.1 % (95.0-99.0) L 01/29/22 Unknown FiO2 36 % 01/29/22 Unknown Sodium 141 mmol/L (137-145) 01/30/22 04:32 Potassium 4.8 mmol/L (3.6-5.0) 01/30/22 04:32 Chloride 96.4 mmol/L (98-107) L 01/30/22 04:32 Carbon Dioxide 38 mmol/L (22-30) H 01/30/22 04:32 Anion Gap 11 mmol/L 01/30/22 04:32 BUN 28 mg/dL (7-17) H 01/30/22 04:32 Creatinine 1.9 mg/dL (0.6-1.2) H 01/31/22 05:30 Estimated GFR 33 ml/min 01/31/22 05:30 BUN/Creatinine Ratio 16 % 01/30/22 04:32 Glucose 149 mg/dL (65-100) H 01/30/22 04:32 Calcium 10.0 mg/dL (8.4-10.2) 01/30/22 04:32 Total Bilirubin 0.60 mg/dL (0.1-1.2) 01/29/22 04:35 AST 14 units/L (5-40) 01/29/22 04:35 ALT 9 units/L (7-56) 01/29/22 04:35 Alkaline Phosphatase 117 units/L (35-129) 01/29/22 04:35 Troponin T < 0.010 ng/mL (0.00-0.029) 01/29/22 15:59 NT-Pro-B Natriuret Pep 1347 pg/mL (0-900) H 01/28/22 12:43 Total Protein 8.7 g/dL (6.3-8.2) H 01/29/22 04:35 Albumin 3.3 g/dL (3.9-5) L 01/29/22 04:35 Albumin/Globulin Ratio 0.6 % 01/29/22 04:35 Small/IV: Voiding Method Indwelling Catheter Active Medications - Current Medications Current Medications: Generic Name Dose Route Start Last Admin Trade Name Freq PRN Reason Stop Dose Admin Acetaminophen 650 mg 01/28/22 18:16 Acetaminophen 325 Mg Tab PO Q4H PRN Pain MILD(1-3)/Fever >100.5/CHAVEZ Albuterol 2.5 mg 01/28/22 18:12 Albuterol 2.5 Mg/3 Ml Nebu IH Q4HRT PRN Shortness Of Breath Albuterol/Ipratropium 1 ampul 01/30/22 08:00 01/31/22 07:11 Ipratropium/Albuterol Sulfate 3 Ml Ampul.Neb IH 1 ampul TIDRT MARCELLA Administration Amiodarone HCl 200 mg 01/28/22 19:00 01/30/22 09:02 Amiodarone 200 Mg Tab PO 200 mg QDAY MARCELLA Administration Amlodipine Besylate 10 mg 01/28/22 19:00 01/30/22 09:01 Amlodipine 10 Mg Tab PO 10 mg QDAY MARCELLA Administration Apixaban 5 mg 01/28/22 22:00 07/18/22 21:32 Apixaban 5 Mg Tab PO 5 mg Q12HR MARCELLA Administration Protocol Ascorbic Acid 500 mg 01/28/22 22:00 01/30/22 21:32 Ascorbic Acid 500 Mg Tab PO 500 mg BID MARCELLA Administration Aspirin 81 mg 01/28/22 19:00 01/30/22 09:00 Aspirin 81 Mg Tab Chew PO 81 mg QDAY MARCELLA Administration Atenolol 25 mg 01/28/22 19:00 01/30/22 09:02 Atenolol 25 Mg Tab PO 25 mg DAILY MARCELLA Administration Atorvastatin Calcium 40 mg 01/28/22 22:00 01/30/22 21:31 Atorvastatin 40 Mg Tab PO 40 mg QHS MARCELLA Administration Diltiazem HCl 120 mg 01/28/22 19:00 01/30/22 09:01 Diltiazem Cd 120 Mg Cap PO 120 mg QDAY MARCELLA Administration Diphenhydramine HCl 25 mg 01/28/22 20:57 01/29/22 21:14 Diphenhydramine 50 Mg/Ml Vial IV 25 mg Q4H PRN Administration Itching Famotidine 20 mg 01/28/22 22:00 01/30/22 21:33 Famotidine 20 Mg Tab PO 20 mg BID MARCELLA Administration Furosemide 40 mg 01/29/22 06:00 01/31/22 05:46 Furosemide 40 Mg/4 Ml Inj IV 40 mg 0600,1800 MARCELLA Administration Gabapentin 300 mg 01/28/22 22:00 01/30/22 21:31 Gabapentin 300 Mg Cap PO 300 mg BID MARCELLA Administration Hydralazine HCl 100 mg 01/29/22 14:00 01/30/22 21:32 Hydralazine 100 Mg Tab PO 100 mg TID MARCELLA Administration Labetalol HCl 10 mg 01/29/22 14:00 01/29/22 17:38 Labetalol 20 Mg/4 Ml Inj IV 10 mg Q4HR PRN Administration sbp>160 Methylprednisolone Sodium Succinate 60 mg 01/28/22 22:00 01/31/22 05:46 Methylprednisolone Sod Succinate 125 Mg/2 Ml Inj IV 60 mg Q8HR MARCELLA Administration Morphine Sulfate 2 mg 01/28/22 18:39 01/31/22 05:54 Morphine 2 Mg/1 Ml Inj IV 2 mg Q4H PRN Administration Pain, Moderate (4-6) Ondansetron HCl 4 mg 07/16/22 18:16 Ondansetron 4 Mg/2 Ml Inj IV Q8H PRN Nausea And Vomiting Pantoprazole Sodium 40 mg 01/30/22 13:00 01/30/22 13:34 Pantoprazole 40 Mg Tab PO 40 mg QDAC MARCELLA Administration Sodium Chloride 10 ml 01/28/22 22:00 01/30/22 21:32 Sodium Chloride 0.9% 10 Ml Flush Syringe IV 10 ml BID MARCELLA Administration Sodium Chloride 10 ml 01/28/22 18:16 Sodium Chloride 0.9% 10 Ml Flush Syringe IV PRN PRN LINE FLUSH Tramadol HCl 50 mg 01/28/22 18:12 01/29/22 10:09 Tramadol 50 Mg Tab PO 50 mg Q6H PRN Administration Pain, Moderate (4-6) Zinc Sulfate 220 mg 01/28/22 22:00 01/30/22 21:32 Zinc Sulfate 220 Mg Cap PO 220 mg BID MARCELLA Administration
[2022-01-31] MEDS: ASPIRIN 81 MG TAB CHEW PO SCH (10:24)
[2022-01-31] MEDS: APIXABAN 5 MG TAB PO SCH ×2 (10:24→21:27)
[2022-01-31] MEDS: FAMOTIDINE 20 MG TAB PO SCH ×2 (10:25→21:27)
[2022-01-31] MEDS: ASCORBIC ACID 500 MG TAB PO SCH ×2 (10:25→21:27)
[2022-01-31] MEDS: ZINC SULFATE 220 MG CAP PO SCH ×2 (10:25→21:27)
[2022-01-31] MEDS: amLODIPine 10 MG TAB PO SCH (10:25)
[2022-01-31] MEDS: AMIODARONE 200 MG TAB PO SCH (10:25)
[2022-01-31] MEDS: GABAPENTIN 300 MG CAP PO SCH ×2 (10:25→21:27)
[2022-01-31] MEDS: PANTOPRAZOLE 40 MG TAB PO SCH (10:25)
[2022-01-31] MEDS: atenoloL 25 MG TAB PO SCH (10:29)
[2022-01-31] MEDS: hydrALAZINE 100 MG TAB PO SCH ×3 (13:50→22:03)
[2022-01-31] MEDS: dilTIAZem CD 120 MG CAP PO SCH (13:51)
--- NOTE | 2022-01-31 13:52 | Progress Note ---
Assessment and Plan - Patient Problems (1) Shortness of breath Current Visit: Yes Status: Acute Plan to address problem: It will be recalled that she presented to the hospital with shortness of breath and hypoxemia. She has a history of morbid obesity, obstructive sleep apnea and chronic hypoventilation syndrome. She admits to poor compliance with her home CPAP, which she finds uncomfortable to wear. Echocardiogram on this presentation shows normal left ventricular systolic function with ejection fraction 55%. Major finding on the echo is severe cor pulmonale with dilated right heart chambers, moderate to severe tricuspid regurgitation, and moderate to severe pulmonary hypertension. We will defer to pulmonary for management of the patient's pulmonary disease which is etiology of her chronic dyspnea and hypoxemia. Subjective Date of service: 01/31/22 Principal diagnosis: Shortness of breath and hypoxemia Interval history: Patient is comfortable in no acute distress. No new cardiac events reported. On cardiac monitor technician there is a sinus rhythm at 60. Objective Vital Signs Temp Pulse Pulse Pulse Resp Resp BP 01/31/22 10:25 64 130/69 01/31/22 10:22 97 F L 64 20 01/31/22 07:11 61 16 01/31/22 05:44 97.6 F 58 L 18 01/31/22 00:00 66 01/30/22 21:30 97.5 F L 66 20 01/30/22 21:12 01/30/22 20:00 64 18 01/30/22 17:31 73 23 140/76 01/30/22 17:01 73 11 L 139/70 01/30/22 16:31 68 13 139/70 01/30/22 16:00 99 F 68 68 9 L 139/70 01/30/22 15:31 62 14 137/75 01/30/22 15:00 72 16 137/75 01/30/22 14:31 63 15 135/69 01/30/22 14:07 66 22 01/30/22 14:00 60 18 135/69 BP Pulse Ox 01/31/22 10:25 01/31/22 10:22 130/69 95 01/31/22 07:11 95 01/31/22 05:44 159/84 93 01/31/22 00:00 92 01/30/22 21:30 151/76 93 01/30/22 21:12 92 01/30/22 20:00 01/30/22 17:31 93 01/30/22 17:01 93 01/30/22 16:31 95 01/30/22 16:00 91 01/30/22 15:31 96 01/30/22 15:00 91 01/30/22 14:31 95 01/30/22 14:07 01/30/22 14:00 91 - Physical Examination General: Other (Morbidly obese) HEENT: Positive: PERRL Neck: Positive: neck supple Cardiac: Positive: Reg Rate and Rhythm Lungs: Positive: Decreased Breath Sounds Neuro: Positive: Grossly Intact Abdomen: Positive: Soft Skin: Positive: Clear Extremities: Present: edema (Trace) - Labs and Meds Comprehensive Metabolic Panel 01/31/22 Range/Units 05:30 Creatinine 1.9 H (0.6-1.2) mg/dL - Imaging and Cardiology EKG: report reviewed (And his rhythm, heart rate of 72, probable left atrial enlargement) - Allied health notes Allied health notes reviewed: nursing
--- NOTE | 2022-01-31 16:31 | Progress Note ---
Assessment and Plan Acute and chronic respiratory failure with hypoxia Acute decompensated heart failure Obesity hypoventilation syndrome Paroxysmal atrial fibrillation Essential hypertension Hyperkalemia-resolved Acute kidney injury due to vasomotor nephropathy Morbid Obesity-BMI 70.7 -Continue to titrate supplemental oxygen to keep SpO2 88-90% -BIPAP qhs and prn- patient refuses BIPAP -CXR, ABGs as clinically indicated -Continue to avoid nephrotoxins, dose all medications for GFR and CrCL -Blood pressure medications, monitor hemodynamics closely -States she does not want any invasive measures -PT/OT to evaluate and treat before a bedside commode is used- waiting to be seen -VTE prophylaxis- therapeutic anticoagulation on Apixaban -Heart failure measures -Mobility, frequent turning per facility protocol to prevent pressure ulcers Patient elects to be DNAR in the event of cardiopulmonary arrest She has a Small Discharge planning on going- possible fdc Subjective Date of service: 01/31/22 Principal diagnosis: Shortness of breath and hypoxemia Interval history: 64-year-old female with morbid obesity-current BMI of 70.7 and weighing about 400 pounds on home oxygen up to 4 L nasal cannula comes in for shortness of breath chest pain, headache and diarrhea f/up for acute and chronic hypoxemic resp failure; extreme obesity;Obesity hyp oventilation syndrome; Obstructive sleep apnea Seen and examined. Vitals, labs, medications, chart reviewed. Discussed with nursing care staff. She denies any chest pain, states the shortness of breath is better. No fevers, no chills, no nausea or vomiting. She is tolerating a clear liquid diet. No new complaints Objective Vital Signs - 12hr 01/31/22 01/31/22 01/31/22 05:44 07:11 10:22 Temperature 97.6 F 97 F L Pulse Rate 58 L 64 Pulse Rate [ 61 Bilateral Throughout] Respiratory 18 20 Rate Respiratory 16 Rate [Bilateral Throughout] Blood Pressure Blood Pressure 159/84 130/69 [Left] O2 Sat by Pulse 93 95 95 Oximetry 01/31/22 10:25 Temperature Pulse Rate 64 Pulse Rate [ Bilateral Throughout] Respiratory Rate Respiratory Rate [Bilateral Throughout] Blood Pressure 130/69 Blood Pressure [Left] O2 Sat by Pulse Oximetry Constitutional: no acute distress, alert, other (Morbidly Obese.) Eyes: non-icteric ENT: oropharynx moist Neck: supple, no lymphadenopathy, no JVD Effort: mildly labored Ascultation: Bilateral: diminished breath sounds Cardiovascular: regular rate and rhythm Gastrointestinal: normoactive bowel sounds, soft, non-tender, other (Obese, Small catheter) Integumentary: normal Extremities: no cyanosis, other (Stasis dermatitis) Neurologic: normal mental status, non-focal exam, pupils equal and round Psychiatric: mood appropriate, affect normal CBC and BMP: 02/01/22 05:13 01/31/22 05:30 ABG, PT/INR, D-dimer: ABG ABG pH 7.366 pH Units (7.350-7.450) 01/29/22 Unknown ABG pCO2 74.0 mm Hg 01/29/22 Unknown ABG pO2 58.0 mm Hg (80.0-90.0) L 01/29/22 Unknown ABG O2 Saturation 89.7 % (95.0-99.0) L 01/29/22 Unknown PT/INR, D-dimer PT 15.8 Sec. (12.2-14.9) H 01/28/22 18:56 INR 1.13 (0.87-1.13) 01/28/22 18:56 Abnormal lab findings: Abnormal Labs 01/28/22 01/28/22 01/28/22 12:43 12:43 12:43 RBC 3.27 L Hgb 8.8 L Hct 28.8 L MCH 27 L MCHC RDW 18.0 H Carter % (Auto) 9.2 H Lymph # (Auto) 1.0 L Seg Neutrophils % 73.8 H Seg Neuts % (Manual) Lymphocytes % (Manual) Lymphocytes # (Manual) PT ABG pO2 ABG HCO3 ABG O2 Saturation ABG Base Excess ABG Hemoglobin Oxyhemoglobin Potassium 5.1 H Chloride Carbon Dioxide 38 H BUN 20 H Creatinine 1.6 H Glucose NT-Pro-B Natriuret Pep 1347 H Total Protein Albumin 3.2 L 01/28/22 01/28/22 01/28/22 18:56 18:56 18:56 RBC 3.32 L Hgb 8.8 L Hct 29.4 L MCH 27 L MCHC RDW 17.7 H Carter % (Auto) Lymph # (Auto) Seg Neutrophils % Seg Neuts % (Manual) Lymphocytes % (Manual) Lymphocytes # (Manual) PT 15.8 H ABG pO2 ABG HCO3 ABG O2 Saturation ABG Base Excess ABG Hemoglobin Oxyhemoglobin Potassium Chloride Carbon Dioxide BUN Creatinine 1.6 H Glucose NT-Pro-B Natriuret Pep Total Protein Albumin 01/29/22 01/29/22 01/29/22 04:35 04:35 Unknown RBC Hgb 9.7 L Hct MCH 26 L MCHC 29 L RDW 18.0 H Carter % (Auto) Lymph # (Auto) Seg Neutrophils % Seg Neuts % (Manual) 97.0 H Lymphocytes % (Manual) 2.0 L Lymphocytes # (Manual) 0.1 L PT ABG pO2 58.0 L ABG HCO3 41.5 H ABG O2 Saturation 89.7 L ABG Base Excess 14.0 H ABG Hemoglobin 9.0 L Oxyhemoglobin 87.1 L Potassium 5.6 H Chloride Carbon Dioxide 36 H BUN 21 H Creatinine 1.6 H Glucose 109 H NT-Pro-B Natriuret Pep Total Protein 8.7 H Albumin 3.3 L 01/30/22 01/30/22 01/31/22 04:32 04:32 05:30 RBC 3.64 L Hgb 9.5 L Hct MCH 26 L MCHC RDW 18.3 H Carter % (Auto) Lymph # (Auto) Seg Neutrophils % Seg Neuts % (Manual) Lymphocytes % (Manual) Lymphocytes # (Manual) PT ABG pO2 ABG HCO3 ABG O2 Saturation ABG Base Excess ABG Hemoglobin Oxyhemoglobin Potassium Chloride 96.4 L Carbon Dioxide 38 H BUN 28 H Creatinine 1.8 H 1.9 H Glucose 149 H NT-Pro-B Natriuret Pep Total Protein Albumin Allied health notes reviewed: nursing
[2022-02-01 05:29] LABS: Mean Corpuscular HGB Conc 30 % (30-34); Mean Corpuscular Volume 88 fl (79-97); Platelet Count 245 K/mm3 (140-440); Red Blood Count 3.95 M/mm3 (3.65-5.03); Red Cell Distribution Width 18.6 % (13.2-15.2)
[2022-02-01 05:30] LABS: Hematocrit 34.6 % (30.3-42.9); Hemoglobin 10.5 gm/dl (10.1-14.3)
[2022-02-01] MEDS: methylPREDNISolone Sod Succinate 125 MG/2 ML INJ IV SCH (05:52)
[2022-02-01] MEDS: FUROSEMIDE 40 MG/4 ML INJ IV SCH (05:52)
[2022-02-01] MEDS: MORPHINE 2 MG/1 ML INJ IV PRN ×3 (06:00→21:30)
[2022-02-01] MEDS: IPRATROPIUM/ALBUTEROL SULFATE 3 ML AMPUL.NEB IH SCH ×3 (08:51→19:57)
--- NOTE | 2022-02-01 09:24 | Progress Note ---
Assessment and Plan Assessment and plan: 64-year-old female with morbid obesity-current BMI of 70.7 and weighing about 400 pounds on home oxygen up to 4 L nasal cannula comes in for shortness of breath chest pain, headache and diarrhea. Patient states that she has been short of breath for last couple years and her oxygen levels usually run around 85-90. She has been able to walk to the restroom and ADLs till 1 month ago. Now she is nearly bedridden. Uses bedside commode. No fever or chills. Patient is very hypoxic in the emergency room with oxygen at low 80s. Patient is supposed to be on CPAP at home for obstructive sleep apnea but does not use because of inconvenience. Assessment and Plan: #Acute respiratory failure with hypoxia Currently on supplemental oxygen 4 L/min Etiology secondary to pulmonary hypertension and OHS/LUZ MARINA -Continue afterload reduction and diuresis Pulmonary following #Severe pulmonary hypertension #Compensated diastolic heart failure -Elevated BNP on admission - CXR findings consistent with pulmonary edema from congestive heart failure -ECHO revealed left ventricular systolic function normal with concentric left ventricular hypertrophy and EF of 55%. Right ventricle is moderate to severely dilated. -Moderate to severe pulmonary hypertension -daily weights -I/O's -Lasix IV BID -Cardiology following #Obesity hypoventilation syndrome Elevated BMI, recommend BiPAP nightly #Paroxysmal atrial fibrillation -Continue home diltiazem and Eliquis #Essential hypertension -Amlodipine, atenolol, Lasix Added hydralazine 100 mg p.o. 3 times daily #Hyperkalemia 5.5, administered IV calcium gluconate on admission Suspect this is Aldactone related, hold Aldactone for that at this time Trend on serial BMP #Acute kidney injury due to vasomotor nephropathy - Admission Cr: 1.6, Baseline Cr: 1.21.6 - etiology: Possibly medication related - avoid nephrotoxic agents - monitor I/O's - renal adjust medications - daily renal profile #Morbid Obesity - BMI 70.7 - Counseled patient on the importance of weight loss, incorporating exercise, and dietary changes (lean meats, fresh fruits and vegetables, and water intake). Patient expresses understanding. Hospital Course: 01/29: elevated BP this Am. restarted home medications, added hydralazine for BP optimization. Continue diuresis with lasix 40 IV BID. Patient requested to be DNR/AND. Paper work signed and status updated in chart. Follow kidney fx on serial bmp. Can likely be downgraded to floor tomorrow. Patient is bedbound due to morbid obesity, family having trouble supporting her at home. CM/SW consulted for assistance. 01/31: Patient still requiring 5 L O2 to maintain saturations greater than 92%. We will obtain physical therapy evaluation to assess disposition. 02/01: Patient with 4 L O2 and saturations greater than 92%. [facility] rehab accepted the patient. History Interval history: No new issues overnight Hospitalist Physical - Constitutional Vitals: Temp Pulse Resp BP Pulse Ox 98.5 F 85 19 138/73 94 02/01/22 05:47 02/01/22 08:00 02/01/22 08:00 02/01/22 05:47 02/01/22 08:52 General appearance: Present: no acute distress, well-nourished, obese, other (Morbidly obese) - EENT Eyes: Present: PERRL, EOM intact ENT: hearing intact, clear oral mucosa, dentition normal - Neck Neck: Present: supple, normal ROM - Respiratory Respiratory effort: normal Respiratory: bilateral: CTA - Cardiovascular Rhythm: regular Heart Sounds: Present: S1 & S2. Absent: gallop, rub - Extremities Extremities: no ischemia, No edema, Full ROM - Abdominal General gastrointestinal: soft, non-tender, non-distended, normal bowel sounds - Integumentary Integumentary: Present: clear, warm, dry - Neurologic Neurologic: CNII-XII intact, moves all extremities HEART Score - HEART Score EKG: Normal Age: 45-65 Risk factors: > 3 risk factors or hx of atherosclerotic disease Troponin: Troponin T < 0.010 ng/mL (0.00-0.029) 01/29/22 15:59 Troponin: < normal limit - Critical Actions Critical Actions: 0-3 pts:0.9-1.7%risk of adverse cardiac event.Candidate for discharge Results - Labs CBC & Chem 7: 02/01/22 05:13 01/31/22 05:30 Labs: Laboratory Last Values WBC 8.2 K/mm3 (4.5-11.0) 02/01/22 05:13 RBC 3.95 M/mm3 (3.65-5.03) 02/01/22 05:13 Hgb 10.5 gm/dl (10.1-14.3) 02/01/22 05:13 Hct 34.6 % (30.3-42.9) 02/01/22 05:13 MCV 88 fl (79-97) 02/01/22 05:13 MCH 27 pg (28-32) L 02/01/22 05:13 MCHC 30 % (30-34) 02/01/22 05:13 RDW 18.6 % (13.2-15.2) H 02/01/22 05:13 Plt Count 245 K/mm3 (140-440) 02/01/22 05:13 Lymph % (Auto) 14.5 % (13.4-35.0) 01/28/22 12:43 [place] % (Auto) 9.2 % (0.0-7.3) H 01/28/22 12:43 Eos % (Auto) 2.0 % (0.0-4.3) 01/28/22 12:43 Baso % (Auto) 0.5 % (0.0-1.8) 01/28/22 12:43 Lymph # (Auto) 1.0 K/mm3 (1.2-5.4) L 01/28/22 12:43 [place] # (Auto) 0.6 K/mm3 (0.0-0.8) 01/28/22 12:43 Eos # (Auto) 0.1 K/mm3 (0.0-0.4) 01/28/22 12:43 Baso # (Auto) 0.0 K/mm3 (0.0-0.1) 01/28/22 12:43 Add Manual Diff Complete 01/29/22 04:35 Total Counted 100 01/29/22 04:35 Seg Neutrophils % Heel Cementer 01/29/22 04:35 Seg Neuts % (Manual) 97.0 % (40.0-70.0) H 01/29/22 04:35 Band Neutrophils % 0 % 01/29/22 04:35 Lymphocytes % (Manual) 2.0 % (13.4-35.0) L 01/29/22 04:35 Reactive Lymphs % (Man) 0 % 01/29/22 04:35 Monocytes % (Manual) 1.0 % (0.0-7.3) 01/29/22 04:35 Eosinophils % (Manual) 0 % (0.0-4.3) 01/29/22 04:35 Basophils % (Manual) 0 % (0.0-1.8) 01/29/22 04:35 Metamyelocytes % 0 % 01/29/22 04:35 Myelocytes % 0 % 01/29/22 04:35 Promyelocytes % 0 % 01/29/22 04:35 Blast Cells % 0 % 01/29/22 04:35 Nucleated RBC % Not Reportable 01/29/22 04:35 Seg Neutrophils # 4.8 K/mm3 (1.8-7.7) 01/28/22 12:43 Seg Neutrophils # Man 5.5 K/mm3 (1.8-7.7) 01/29/22 04:35 Band Neutrophils # 0.0 K/mm3 01/29/22 04:35 Lymphocytes # (Manual) 0.1 K/mm3 (1.2-5.4) L 01/29/22 04:35 Abs React Lymphs (Man) 0.0 K/mm3 01/29/22 04:35 Monocytes # (Manual) 0.1 K/mm3 (0.0-0.8) 01/29/22 04:35 Eosinophils # (Manual) 0.0 K/mm3 (0.0-0.4) 01/29/22 04:35 Basophils # (Manual) 0.0 K/mm3 (0.0-0.1) 01/29/22 04:35 Metamyelocytes # 0.0 K/mm3 01/29/22 04:35 Myelocytes # 0.0 K/mm3 01/29/22 04:35 Promyelocytes # 0.0 K/mm3 01/29/22 04:35 Blast Cells # 0.0 K/mm3 01/29/22 04:35 WBC Morphology Not Reportable 01/29/22 04:35 Hypersegmented Neuts Not Reportable 01/29/22 04:35 Hyposegmented Neuts Not Reportable 01/29/22 04:35 Hypogranular Neuts Not Reportable 01/29/22 04:35 Smudge Cells Not Reportable 01/29/22 04:35 Toxic Granulation Not Reportable 01/29/22 04:35 Toxic Vacuolation Not Reportable 01/29/22 04:35 Dohle Bodies Not Reportable 01/29/22 04:35 Pelger-Huet Anomaly Not Reportable 01/29/22 04:35 Papa Rods Not Reportable 01/29/22 04:35 Platelet Estimate Consistent w auto 01/29/22 04:35 Clumped Platelets Not Reportable 01/29/22 04:35 Plt Clumps, EDTA Not Reportable 01/29/22 04:35 Large Platelets Not Reportable 01/29/22 04:35 Giant Platelets Not Reportable 01/29/22 04:35 Platelet Satelliting Not Reportable 01/29/22 04:35 Plt Morphology Comment Not Reportable 01/29/22 04:35 RBC Morphology Not Reportable 01/29/22 04:35 Dimorphic RBCs Not Reportable 01/29/22 04:35 Polychromasia Not Reportable 01/29/22 04:35 Hypochromasia Not Reportable 01/29/22 04:35 Poikilocytosis Not Reportable 01/29/22 04:35 Anisocytosis 1+ 01/29/22 04:35 Microcytosis Not Reportable 01/29/22 04:35 Macrocytosis Not Reportable 01/29/22 04:35 Spherocytes Not Reportable 01/29/22 04:35 Pappenheimer Bodies Not Reportable 01/29/22 04:35 Sickle Cells Not Reportable 01/29/22 04:35 Target Cells Not Reportable 01/29/22 04:35 Tear Drop Cells Not Reportable 01/29/22 04:35 Ovalocytes Not Reportable 01/29/22 04:35 Helmet Cells Not Reportable 01/29/22 04:35 Landry-Mcnair Bodies Not Reportable 01/29/22 04:35 [place] Rings Not Reportable 01/29/22 04:35 [place] Cells Not Reportable 01/29/22 04:35 Bite Cells Not Reportable 01/29/22 04:35 Crenated Cell Not Reportable 01/29/22 04:35 Elliptocytes Not Reportable 01/29/22 04:35 Acanthocytes (Spur) Not Reportable 01/29/22 04:35 Rouleaux Not Reportable 01/29/22 04:35 Hemoglobin C Crystals Not Reportable 01/29/22 04:35 Schistocytes Not Reportable 01/29/22 04:35 Malaria parasites Not Reportable 01/29/22 04:35 Guillermo Bodies Not Reportable 01/29/22 04:35 Hem Pathologist Commnt No 01/29/22 04:35 PT 15.8 Sec. (12.2-14.9) H 01/28/22 18:56 INR 1.13 (0.87-1.13) 01/28/22 18:56 APTT 33.9 Sec. (24.2-36.6) 01/28/22 18:56 ABG pH 7.366 pH Units (7.350-7.450) 01/29/22 Unknown ABG pCO2 74.0 mm Hg 01/29/22 Unknown ABG pO2 58.0 mm Hg (80.0-90.0) L 01/29/22 Unknown ABG HCO3 41.5 mmol/L (20.0-26.0) H 01/29/22 Unknown ABG O2 Saturation 89.7 % (95.0-99.0) L 01/29/22 Unknown ABG O2 Content 11.1 (0.0-44) 01/29/22 Unknown ABG Base Excess 14.0 mmol/L (-2.0-3.0) H 01/29/22 Unknown ABG Hemoglobin 9.0 gm/dl (12.0-16.0) L 01/29/22 Unknown ABG Carboxyhemoglobin 2.5 % (0.0-5.0) 01/29/22 Unknown ABG Methemoglobin 0.4 % (0.0-1.5) 01/29/22 Unknown Oxyhemoglobin 87.1 % (95.0-99.0) L 01/29/22 Unknown FiO2 36 % 01/29/22 Unknown Sodium 141 mmol/L (137-145) 01/30/22 04:32 Potassium 4.8 mmol/L (3.6-5.0) 01/30/22 04:32 Chloride 96.4 mmol/L (98-107) L 01/30/22 04:32 Carbon Dioxide 38 mmol/L (22-30) H 01/30/22 04:32 Anion Gap 11 mmol/L 01/30/22 04:32 BUN 28 mg/dL (7-17) H 01/30/22 04:32 Creatinine 1.9 mg/dL (0.6-1.2) H 01/31/22 05:30 Estimated GFR 33 ml/min 01/31/22 05:30 BUN/Creatinine Ratio 16 % 01/30/22 04:32 Glucose 149 mg/dL (65-100) H 01/30/22 04:32 Calcium 10.0 mg/dL (8.4-10.2) 01/30/22 04:32 Total Bilirubin 0.60 mg/dL (0.1-1.2) 01/29/22 04:35 AST 14 units/L (5-40) 01/29/22 04:35 ALT 9 units/L (7-56) 01/29/22 04:35 Alkaline Phosphatase 117 units/L (35-129) 01/29/22 04:35 Troponin T < 0.010 ng/mL (0.00-0.029) 01/29/22 15:59 NT-Pro-B Natriuret Pep 1347 pg/mL (0-900) H 01/28/22 12:43 Total Protein 8.7 g/dL (6.3-8.2) H 01/29/22 04:35 Albumin 3.3 g/dL (3.9-5) L 01/29/22 04:35 Albumin/Globulin Ratio 0.6 % 01/29/22 04:35 Small/IV: Voiding Method Indwelling Catheter Active Medications - Current Medications Current Medications: Generic Name Dose Route Start Last Admin Trade Name Freq PRN Reason Stop Dose Admin Acetaminophen 650 mg 01/28/22 18:16 Acetaminophen 325 Mg Tab PO Q4H PRN Pain MILD(1-3)/Fever >100.5/CHAVEZ Albuterol 2.5 mg 01/28/22 18:12 Albuterol 2.5 Mg/3 Ml Nebu IH Q4HRT PRN Shortness Of Breath Albuterol/Ipratropium 1 ampul 01/30/22 08:00 02/01/22 08:51 Ipratropium/Albuterol Sulfate 3 Ml Ampul.Neb IH 1 ampul TIDRT MARCELLA Administration Amiodarone HCl 200 mg 01/28/22 19:00 01/31/22 10:25 Amiodarone 200 Mg Tab PO 200 mg QDAY MARCELLA Administration Amlodipine Besylate 10 mg 01/28/22 19:00 01/31/22 10:25 Amlodipine 10 Mg Tab PO 10 mg QDAY MARCELLA Administration Apixaban 5 mg 01/28/22 22:00 01/31/22 21:27 Apixaban 5 Mg Tab PO 5 mg Q12HR MARCELLA Administration Protocol Ascorbic Acid 500 mg 01/28/22 22:00 01/31/22 21:27 Ascorbic Acid 500 Mg Tab PO 500 mg BID MARCELLA Administration Aspirin 81 mg 01/28/22 19:00 01/31/22 10:24 Aspirin 81 Mg Tab Chew PO 81 mg QDAY MARCELLA Administration Atenolol 25 mg 01/28/22 19:00 01/31/22 10:29 Atenolol 25 Mg Tab PO 25 mg DAILY MARCELLA Administration Atorvastatin Calcium 40 mg 01/28/22 22:00 01/31/22 21:27 Atorvastatin 40 Mg Tab PO 40 mg QHS MARCELLA Administration Diltiazem HCl 120 mg 01/28/22 19:00 01/31/22 13:51 Diltiazem Cd 120 Mg Cap PO 120 mg QDAY MARCELLA Administration Diphenhydramine HCl 25 mg 01/28/22 20:57 01/29/22 21:14 Diphenhydramine 50 Mg/Ml Vial IV 25 mg Q4H PRN Administration Itching Furosemide 40 mg 01/29/22 06:00 02/01/22 05:52 Furosemide 40 Mg/4 Ml Inj IV 40 mg 0600,1800 MACRELLA Administration Gabapentin 300 mg 01/28/22 22:00 01/31/22 21:27 Gabapentin 300 Mg Cap PO 300 mg BID MARCELLA Administration Hydralazine HCl 100 mg 01/29/22 14:00 01/31/22 22:03 Hydralazine 100 Mg Tab PO 100 mg TID MARCELLA Administration Labetalol HCl 10 mg 01/29/22 14:00 01/29/22 17:38 Labetalol 20 Mg/4 Ml Inj IV 10 mg Q4HR PRN Administration sbp>160 Methylprednisolone Sodium Succinate 60 mg 01/28/22 22:00 02/01/22 05:52 Methylprednisolone Sod Succinate 125 Mg/2 Ml Inj IV 60 mg Q8HR MARCELLA Administration Morphine Sulfate 2 mg 01/28/22 18:39 02/01/22 06:00 Morphine 2 Mg/1 Ml Inj IV 2 mg Q4H PRN Administration Pain, Moderate (4-6) Ondansetron HCl 4 mg 01/28/22 18:16 Ondansetron 4 Mg/2 Ml Inj IV Q8H PRN Nausea And Vomiting Pantoprazole Sodium 40 mg 01/30/22 13:00 01/31/22 10:25 Pantoprazole 40 Mg Tab PO 40 mg QDAC MARCELLA Administration Sodium Chloride 10 ml 01/28/22 22:00 01/31/22 21:28 Sodium Chloride 0.9% 10 Ml Flush Syringe IV 10 ml BID MARCELLA Administration Sodium Chloride 10 ml 01/28/22 18:16 Sodium Chloride 0.9% 10 Ml Flush Syringe IV PRN PRN LINE FLUSH Tramadol HCl 50 mg 01/28/22 18:12 01/29/22 10:09 Tramadol 50 Mg Tab PO 50 mg Q6H PRN Administration Pain, Moderate (4-6) Zinc Sulfate 220 mg 01/28/22 22:00 01/31/22 21:27 Zinc Sulfate 220 Mg Cap PO 220 mg BID MARCELLA Administration
[2022-02-01] MEDS: atenoloL 25 MG TAB PO SCH (09:35)
[2022-02-01] MEDS: AMIODARONE 200 MG TAB PO SCH (09:35)
[2022-02-01] MEDS: ASCORBIC ACID 500 MG TAB PO SCH ×2 (09:35→21:29)
[2022-02-01] MEDS: amLODIPine 10 MG TAB PO SCH (09:35)
[2022-02-01] MEDS: ASPIRIN 81 MG TAB CHEW PO SCH (09:35)
[2022-02-01] MEDS: GABAPENTIN 300 MG CAP PO SCH ×2 (09:35→21:29)
[2022-02-01] MEDS: hydrALAZINE 100 MG TAB PO SCH ×3 (09:35→21:30)
[2022-02-01] MEDS: PANTOPRAZOLE 40 MG TAB PO SCH (09:35)
[2022-02-01] MEDS: ZINC SULFATE 220 MG CAP PO SCH ×2 (09:36→21:29)
[2022-02-01] MEDS: APIXABAN 5 MG TAB PO SCH ×2 (09:36→21:30)
[2022-02-01] MEDS: dilTIAZem CD 120 MG CAP PO SCH (09:37)
--- NOTE | 2022-02-01 12:01 | Discharge Summary ---
Providers - Providers Date of Admission: 01/28/22 18:16 Date of discharge: 02/01/22 Attending physician: CALI IVEY 01/28/22 18:39 Consult to Physician [CONS] Routine Comment: masood/ christos Consulting Provider: YAN TEMPLETON Physician Instructions: Reason For Exam: Acute respiratory failure, hypoventilation 01/28/22 18:52 Consult to Physician [CONS] Routine Comment: Consulting Provider: VALERIE VIDES Physician Instructions: Reason For Exam: chf 01/30/22 11:15 Physical Therapy Evaluation and Treat [CONS] Routine Comment: Reason For Exam: Help with mobility and self care 01/30/22 12:03 Occupational Therapy Evaluate and Treat [CONS] Routine Comment: Reason For Exam: Debility Primary care physician: ISABELL IRVING Hospitalization Reason for admission: SOB Condition: Stable Hospital course: 64-year-old female with morbid obesity-current BMI of 70.7 and weighing about 400 pounds on home oxygen up to 4 L nasal cannula comes in for shortness of breath chest pain, headache and diarrhea. Patient states that she has been short of breath for last couple years and her oxygen levels usually run around 85-90. She has been able to walk to the restroom and ADLs till 1 month ago. Now she is nearly bedridden. Uses bedside commode. No fever or chills. Patient is very hypoxic in the emergency room with oxygen at low 80s. Patient is supposed to be on CPAP at home for obstructive sleep apnea but does not use because of inconvenience. Patient admitted with diagnosis below along with hospital course per disease process #Acute respiratory failure with hypoxia Currently on supplemental oxygen 4 L/min Etiology secondary to pulmonary hypertension and OHS/LUZ MARINA -Continue afterload reduction and diuresis Pulmonary following #Severe pulmonary hypertension #Compensated diastolic heart failure -Elevated BNP on admission - CXR findings consistent with pulmonary edema from congestive heart failure Patient received diuresis with improvement of heart failure which is now resolved -ECHO revealed left ventricular systolic function normal with concentric left ventricular hypertrophy and EF of 55%. Right ventricle is moderate to severely dilated. -Moderate to severe pulmonary hypertension -daily weights -I/O's -Lasix IV BID changed to p.o. for discharge -Cardiology following #Obesity hypoventilation syndrome Elevated BMI, recommend BiPAP nightly #Paroxysmal atrial fibrillation -Continue home diltiazem and Eliquis #Essential hypertension -Amlodipine, atenolol, Lasix Added hydralazine 100 mg p.o. 3 times daily #Hyperkalemia 5.5, administered IV calcium gluconate on admission Suspect this is Aldactone related, hold Aldactone for that at this time Trend on serial BMP #Acute kidney injury due to vasomotor nephropathy - Admission Cr: 1.6, Baseline Cr: 1.21.6 - etiology: Possibly medication related - avoid nephrotoxic agents - monitor I/O's - renal adjust medications - daily renal profile #Morbid Obesity - BMI 70.7 - Counseled patient on the importance of weight loss, incorporating exercise, and dietary changes (lean meats, fresh fruits and vegetables, and water intake). Patient expresses understanding. Hospital Course: 01/29: elevated BP this Am. restarted home medications, added hydralazine for BP optimization. Continue diuresis with lasix 40 IV BID. Patient requested to be DNR/AND. Paper work signed and status updated in chart. Follow kidney fx on serial bmp. Can likely be downgraded to floor tomorrow. Patient is bedbound due to morbid obesity, family having trouble supporting her at home. CM/SW consulted for assistance. 01/31: Patient still requiring 5 L O2 to maintain saturations greater than 92%. We will obtain physical therapy evaluation to assess disposition. 02/01: Patient with 4 L O2 and saturations greater than 92%. [facility] re[facility] accepted the patient. Disposition: 03 RETIREMENT FACILITY Final Discharge Diagnosis (Prints w/discharge instructions): Acute hypoxic respiratory failure, severe pulmonary hypertension, chronic diastolic heart failure, obesity hypoventilation syndrome, LUZ MARINA, paroxysmal atrial fibrillation, hypertension, hyperkalemia, acute kidney injury due to vasomotor nephropathy, morbid obesity Core Measure Documentation - Palliative Care Palliative Care/ Comfort Measures: Not Applicable - Core Measures Any of the following diagnoses?: none Exam - Constitutional Vitals: Temp Pulse Resp BP Pulse Ox 98.5 F 85 19 138/73 95 02/01/22 05:47 02/01/22 08:00 02/01/22 08:00 02/01/22 05:47 02/01/22 10:00 General appearance: Present: no acute distress, well-nourished - EENT Eyes: Present: PERRL ENT: hearing intact, clear oral mucosa - Neck Neck: Present: supple, normal ROM - Respiratory Respiratory effort: normal Respiratory: bilateral: CTA - Cardiovascular Heart Sounds: Present: S1 & S2. Absent: rub, click - Extremities Extremities: pulses symmetrical, No edema Peripheral Pulses: within normal limits - Abdominal General gastrointestinal: Present: soft, non-tender, non-distended, normal bowel sounds Female genitourinary: Present: normal - Integumentary Integumentary: Present: clear, warm, dry - Musculoskeletal Musculoskeletal: gait normal, strength equal bilaterally - Psychiatric Psychiatric: appropriate mood/affect, intact judgment & insight - Neurologic Neurologic: CNII-XII intact, moves all extremities Plan Activity: advance as tolerated Weight Bearing Status: Weight Bear as Tolerated Diet: low fat, low cholesterol, low salt Follow up with: ISABELL IRVING MD [Primary Care Provider] - 3-5 Days
--- NOTE | 2022-02-01 13:40 | Progress Note ---
Assessment and Plan 64-year-old female with morbid obesity-current BMI of 70.7 Kg/M2 and weighing about 400 pounds on home oxygen up to 4 L nasal cannula comes in for shortness of breath chest pain, headache and diarrhea. Patient states that she has been short of breath for last couple years and her oxygen levels usually run around 85-90. She has been able to walk to the restroom and ADLs till 1 month ago. Now she is nearly bedridden. Uses bedside commode. Patient also complaining back pain and Kidney stones. No fever or chills. Patient is very hypoxic in the emergency room with oxygen at low 80s. Patient is supposed to be on CPAP at home for obstructive sleep apnea but does not use because of inconvenience. Patient has history of Hypertension,CHF,Pulmonary emboli, COPD, Arthritis, Obstructive sleep apnea and Obesity hypoventilation. Patients surgical history and Gastric Bypass in 2006. Patient has history of smoking 1 pack x 20 years. Stopped smoking 10 years ago. Denies alcohol or drug abuse. 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 Allergic to Levofloxacin and EGGS. Patient awake. Resting on 4 litres O2. O2 saturation 89%. No acute respiratory distress.Patient does not want to use CPAP or BIPAP. Patients blood gases on 4 litres O2 ABG pH 7.366 pH Units (7.350-7.450) 01/29/22 Unknown ABG pCO2 74.0 mm Hg 01/29/22 Unknown ABG pO2 58.0 mm Hg (80.0-90.0) L 01/29/22 Unknown ABG O2 Saturation 89.7 % (95.0-99.0) L 01/29/22 Unknown Patient afebrile. No leukocytosis. Blood pressure 130/66, Pulse 53 , Respirations 24. Chest xray done 01/28/22 reported indings are most characteristic of congestive heart failure with venous congestion, pulmonary edema and enlargement of the cardiac silhouette. Patient is on PO prednisone, Albuterol/atrovent aerosol treatments, Apixaban and Protonix.. C - Patient Problems (1) Acute respiratory failure with hypoxia Current Visit: Yes Status: Acute Plan to address problem: O2 4 litres via nasal canula. Continue PO prednisone.. Continue Apixaban. Continue famotidine. Recommend to use BIPAP. Patient does not want to use BIPAP. (2) Acute exacerbation of CHF (congestive heart failure) Current Visit: Yes Status: Acute Qualifiers: Heart failure type: unspecified Qualified Code(s): I50.9 - Heart failure, unspecified Plan to address problem: Patient is on Lasix. Management as per cardiology. (3) Atypical chest pain Current Visit: Yes Status: Acute Plan to address problem: Management as per cardiology. (4) Hypertension Current Visit: Yes Status: Chronic Qualifiers: Hypertension type: primary hypertension Qualified Code(s): I10 - Essential (primary) hypertension Plan to address problem: Management as per primary care and cardiology. (5) Morbid obesity with BMI of 70 and over, adult Current Visit: Yes Status: Acute Plan to address problem: Counseled to loose weight. Diet and exercise. (6) Obesity hypoventilation syndrome Current Visit: No Status: Acute Plan to address problem: Patient does not want to use CPAP or BIPAP Recommend Positional therapy. Recommend to sleep on prone position. (7) Sleep apnea in adult Current Visit: No Status: Acute Plan to address problem: Patient does not want to use CPAP or BIPAP Recommend Positional therapy. Recommend to sleep on prone position. Subjective Date of service: 02/01/22 Principal diagnosis: Shortness of breath and hypoxemia Interval history: 64-year-old female with morbid obesity-current BMI of 70.7 Kg/M2 and weighing about 400 pounds on home oxygen up to 4 L nasal cannula comes in for shortness of breath chest pain, headache and diarrhea. Patient states that she has been short of breath for last couple years and her oxygen levels usually run around 85-90. She has been able to walk to the restroom and ADLs till 1 month ago. Now she is nearly bedridden. Uses bedside commode. Patient also complaining back pain and Kidney stones. No fever or chills. Patient is very hypoxic in the emergency room with oxygen at low 80s. Patient is supposed to be on CPAP at home for obstructive sleep apnea but does not use because of inconvenience. Patient has history of Hypertension,CHF,Pulmonary emboli, COPD, Arthritis, Obstructive sleep apnea and Obesity hypoventilation. Patients surgical history and Gastric Bypass in 2006. Patient has history of smoking 1 pack x 20 years. Stopped smoking 10 years ago. Denies alcohol or drug abuse. 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 Allergic to Levofloxacin and EGGS. Patient awake. Resting on 4 litres O2. O2 saturation 89%. No acute respiratory distress.Patient does not want to use CPAP or BIPAP. Patients blood gases on 4 litres O2 ABG pH 7.366 pH Units (7.350-7.450) 01/29/22 Unknown ABG pCO2 74.0 mm Hg 01/29/22 Unknown ABG pO2 58.0 mm Hg (80.0-90.0) L 01/29/22 Unknown ABG O2 Saturation 89.7 % (95.0-99.0) L 01/29/22 Unknown Patient afebrile. No leukocytosis. Blood pressure 130/66, Pulse 53 , Respi rations 24. Chest xray done 01/28/22 reported indings are most characteristic of congestive heart failure with venous congestion, pulmonary edema and enlargement of the cardiac silhouette. Patient is on PO prednisone, Albuterol/atrovent aerosol treatments, Apixaban and Protonix.. Objective Vital Signs - 12hr 02/01/22 02/01/22 02/01/22 05:47 06:00 08:00 Temperature 98.5 F Pulse Rate 64 Pulse Rate [ 85 Bilateral Throughout] Respiratory 18 18 Rate Respiratory 19 Rate [Bilateral Throughout] Blood Pressure 138/73 [Left] O2 Sat by Pulse 90 Oximetry 02/01/22 02/01/22 08:52 10:00 Temperature Pulse Rate Pulse Rate [ Bilateral Throughout] Respiratory Rate Respiratory Rate [Bilateral Throughout] Blood Pressure [Left] O2 Sat by Pulse 94 95 Oximetry Constitutional: no acute distress, alert, other (Morbidly Obese.) Eyes: non-icteric ENT: oropharynx moist Neck: supple, no lymphadenopathy, no JVD Effort: mildly labored Ascultation: Bilateral: diminished breath sounds Cardiovascular: regular rate and rhythm Gastrointestinal: normoactive bowel sounds, soft, non-tender, other (Obese, Small catheter) Integumentary: normal Extremities: no cyanosis, other (Stasis dermatitis) Neurologic: normal mental status, non-focal exam, pupils equal and round Psychiatric: mood appropriate, affect normal CBC and BMP: 02/01/22 05:13 01/31/22 05:30 ABG, PT/INR, D-dimer: ABG ABG pH 7.366 pH Units (7.350-7.450) 01/29/22 Unknown ABG pCO2 74.0 mm Hg 01/29/22 Unknown ABG pO2 58.0 mm Hg (80.0-90.0) L 01/29/22 Unknown ABG O2 Saturation 89.7 % (95.0-99.0) L 01/29/22 Unknown PT/INR, D-dimer PT 15.8 Sec. (12.2-14.9) H 01/28/22 18:56 INR 1.13 (0.87-1.13) 01/28/22 18:56 Abnormal lab findings: Abnormal Labs 01/28/22 01/28/22 01/28/22 12:43 12:43 12:43 RBC 3.27 L Hgb 8.8 L Hct 28.8 L MCH 27 L MCHC RDW 18.0 H Letcher % (Auto) 9.2 H Lymph # (Auto) 1.0 L Seg Neutrophils % 73.8 H Seg Neuts % (Manual) Lymphocytes % (Manual) Lymphocytes # (Manual) PT ABG pO2 ABG HCO3 ABG O2 Saturation ABG Base Excess ABG Hemoglobin Oxyhemoglobin Potassium 5.1 H Chloride Carbon Dioxide 38 H BUN 20 H Creatinine 1.6 H Glucose NT-Pro-B Natriuret Pep 1347 H Total Protein Albumin 3.2 L 01/28/22 01/28/22 01/28/22 18:56 18:56 18:56 RBC 3.32 L Hgb 8.8 L Hct 29.4 L MCH 27 L MCHC RDW 17.7 H Letcher % (Auto) Lymph # (Auto) Seg Neutrophils % Seg Neuts % (Manual) Lymphocytes % (Manual) Lymphocytes # (Manual) PT 15.8 H ABG pO2 ABG HCO3 ABG O2 Saturation ABG Base Excess ABG Hemoglobin Oxyhemoglobin Potassium Chloride Carbon Dioxide BUN Creatinine 1.6 H Glucose NT-Pro-B Natriuret Pep Total Protein Albumin 01/29/22 01/29/22 01/29/22 04:35 04:35 Unknown RBC Hgb 9.7 L Hct MCH 26 L MCHC 29 L RDW 18.0 H Letcher % (Auto) Lymph # (Auto) Seg Neutrophils % Seg Neuts % (Manual) 97.0 H Lymphocytes % (Manual) 2.0 L Lymphocytes # (Manual) 0.1 L PT ABG pO2 58.0 L ABG HCO3 41.5 H ABG O2 Saturation 89.7 L ABG Base Excess 14.0 H ABG Hemoglobin 9.0 L Oxyhemoglobin 87.1 L Potassium 5.6 H Chloride Carbon Dioxide 36 H BUN 21 H Creatinine 1.6 H Glucose 109 H NT-Pro-B Natriuret Pep Total Protein 8.7 H Albumin 3.3 L 01/30/22 01/30/22 01/31/22 04:32 04:32 05:30 RBC 3.64 L Hgb 9.5 L Hct MCH 26 L MCHC RDW 18.3 H Letcher % (Auto) Lymph # (Auto) Seg Neutrophils % Seg Neuts % (Manual) Lymphocytes % (Manual) Lymphocytes # (Manual) PT ABG pO2 ABG HCO3 ABG O2 Saturation ABG Base Excess ABG Hemoglobin Oxyhemoglobin Potassium Chloride 96.4 L Carbon Dioxide 38 H BUN 28 H Creatinine 1.8 H 1.9 H Glucose 149 H NT-Pro-B Natriuret Pep Total Protein Albumin 02/01/22 05:13 RBC Hgb Hct MCH 27 L MCHC RDW 18.6 H Letcher % (Auto) Lymph # (Auto) Seg Neutrophils % Seg Neuts % (Manual) Lymphocytes % (Manual) Lymphocytes # (Manual) PT ABG pO2 ABG HCO3 ABG O2 Saturation ABG Base Excess ABG Hemoglobin Oxyhemoglobin Potassium Chloride Carbon Dioxide BUN Creatinine Glucose NT-Pro-B Natriuret Pep Total Protein Albumin Allied health notes reviewed: nursing
--- NOTE | 2022-02-01 14:10 | Progress Note ---
Assessment and Plan - Patient Problems (1) Shortness of breath Current Visit: Yes Status: Acute Plan to address problem: It will be recalled that she presented to the hospital with shortness of breath and hypoxemia. She has a history of morbid obesity, obstructive sleep apnea and chronic hypoventilation syndrome. She admits to poor compliance with her home CPAP, which she finds uncomfortable to wear. Echocardiogram on this presentation shows normal left ventricular systolic function with ejection fraction 55%. Major finding on the echo is severe cor pulmonale with dilated right heart chambers, moderate to severe tricuspid regurgitation, and moderate to severe pulmonary hypertension. We will defer to pulmonary for management of the patient's pulmonary disease which is etiology of her chronic dyspnea and hypoxemia. Subjective Date of service: 02/01/22 Principal diagnosis: Shortness of breath and hypoxemia Interval history: Patient is comfortable in no acute distress. No new cardiac events reported. 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 Objective Vital Signs Temp Pulse Pulse Resp Resp BP Pulse Ox 02/01/22 10:00 95 02/01/22 08:52 94 02/01/22 08:00 85 19 02/01/22 06:00 18 02/01/22 05:47 98.5 F 64 18 138/73 90 01/31/22 22:34 17 01/31/22 22:00 67 01/31/22 21:15 64 20 94 01/31/22 21:07 98 F 66 18 124/60 93 01/31/22 20:53 18 93 01/31/22 18:34 17 - Physical Examination General: Other (Morbidly obese) HEENT: Positive: PERRL Neck: Positive: neck supple Cardiac: Positive: Reg Rate and Rhythm Lungs: Positive: Decreased Breath Sounds Neuro: Positive: Grossly Intact Abdomen: Positive: Soft Skin: Positive: Clear Extremities: Present: edema (Trace) - Labs and Meds CBC 02/01/22 Range/Units 05:13 WBC 8.2 (4.5-11.0) K/mm3 RBC 3.95 (3.65-5.03) M/mm3 Hgb 10.5 (10.1-14.3) gm/dl Hct 34.6 (30.3-42.9) % Plt Count 245 (140-440) K/mm3 - Imaging and Cardiology EKG: report reviewed (And his rhythm, heart rate of 72, probable left atrial enlargement) - Allied health notes Allied health notes reviewed: nursing
[2022-02-01] MEDS: FUROSEMIDE 40 MG TAB PO SCH (17:14)
[2022-02-02] MEDS: MORPHINE 2 MG/1 ML INJ IV PRN ×4 (01:33→16:36)
[2022-02-02] MEDS: FUROSEMIDE 40 MG TAB PO SCH ×2 (05:51→17:29)
[2022-02-02] MEDS: IPRATROPIUM/ALBUTEROL SULFATE 3 ML AMPUL.NEB IH SCH ×3 (08:31→21:04)
[2022-02-02] MEDS: ASCORBIC ACID 500 MG TAB PO SCH ×2 (09:28→22:16)
[2022-02-02] MEDS: amLODIPine 10 MG TAB PO SCH (09:29)
[2022-02-02] MEDS: ZINC SULFATE 220 MG CAP PO SCH ×2 (09:29→22:16)
[2022-02-02] MEDS: predniSONE 20 MG TAB PO SCH (09:29)
[2022-02-02] MEDS: AMIODARONE 200 MG TAB PO SCH (09:29)
[2022-02-02] MEDS: PANTOPRAZOLE 40 MG TAB PO SCH (09:29)
[2022-02-02] MEDS: atenoloL 25 MG TAB PO SCH (09:29)
[2022-02-02] MEDS: APIXABAN 5 MG TAB PO SCH ×2 (09:29→22:17)
[2022-02-02] MEDS: hydrALAZINE 100 MG TAB PO SCH ×3 (09:29→21:19)
[2022-02-02] MEDS: GABAPENTIN 300 MG CAP PO SCH ×2 (09:29→22:16)
[2022-02-02] MEDS: ASPIRIN 81 MG TAB CHEW PO SCH (09:29)
--- NOTE | 2022-02-02 09:33 | Progress Note ---
Assessment and Plan Assessment and plan: 64-year-old female with morbid obesity-current BMI of 70.7 and weighing about 400 pounds on home oxygen up to 4 L nasal cannula comes in for shortness of breath chest pain, headache and diarrhea. Patient states that she has been short of breath for last couple years and her oxygen levels usually run around 85-90. She has been able to walk to the restroom and ADLs till 1 month ago. Now she is nearly bedridden. Uses bedside commode. No fever or chills. Patient is very hypoxic in the emergency room with oxygen at low 80s. Patient is supposed to be on CPAP at home for obstructive sleep apnea but does not use because of inconvenience. Assessment and Plan: #Acute respiratory failure with hypoxia Currently on supplemental oxygen 4 L/min Etiology secondary to pulmonary hypertension, severe cord pulmonale and OHS/LUZ MARINA - Continue afterload reduction and diuresis Pulmonary following #Severe pulmonary hypertension #Severe cor pulmonale with dilated right heart chamber #Moderate to severe tricuspid regurgitation #Compensated diastolic heart failure -Elevated BNP on admission - CXR findings consistent with pulmonary edema from congestive heart failure -ECHO revealed left ventricular systolic function normal with concentric left ventricular hypertrophy and EF of 55%. Right ventricle is moderate to severely dilated. -Moderate to severe pulmonary hypertension -daily weights -I/O's -Lasix IV BID -Cardiology following #Obesity hypoventilation syndrome Elevated BMI, recommend BiPAP nightly #Paroxysmal atrial fibrillation -Continue home diltiazem and Eliquis #Essential hypertension -Amlodipine, atenolol, Lasix Added hydralazine 100 mg p.o. 3 times daily #Hyperkalemia 5.5, administered IV calcium gluconate on admission Suspect this is Aldactone related, hold Aldactone for that at this time Trend on serial BMP #Acute kidney injury due to vasomotor nephropathy - Admission Cr: 1.6, Baseline Cr: 1.21.6 - etiology: Possibly medication related - avoid nephrotoxic agents - monitor I/O's - renal adjust medications - daily renal profile #Morbid Obesity - BMI 70.7 - Counseled patient on the importance of weight loss, incorporating exercise, and dietary changes (lean meats, fresh fruits and vegetables, and water intake). Patient expresses understanding. Hospital Course: 01/29: elevated BP this Am. restarted home medications, added hydralazine for BP optimization. Continue diuresis with lasix 40 IV BID. Patient requested to be DNR/AND. Paper work signed and status updated in chart. Follow kidney fx on serial bmp. Can likely be downgraded to floor tomorrow. Patient is bedbound due to morbid obesity, family having trouble supporting her at home. CM/SW consulted for assistance. 01/31: Patient still requiring 5 L O2 to maintain saturations greater than 92%. We will obtain physical therapy evaluation to assess disposition. 02/01: Patient with 4 L O2 and saturations greater than 92%. [facility] rehab accepted the patient. 02/02: Awaiting insurance authorization for residential placement. Respiratory status is stable and at baseline. Physical therapy recommends RICHIE we will transition to LTC/PALOMO with daily assistance History Interval history: No new issues overnight Hospitalist Physical - Constitutional Vitals: Temp Pulse Resp BP Pulse Ox 97.7 F 82 24 159/83 93 02/02/22 07:58 02/02/22 07:58 02/02/22 07:58 02/02/22 07:58 02/02/22 07:58 General appearance: Present: no acute distress, well-nourished - EENT Eyes: Present: PERRL, EOM intact ENT: hearing intact, clear oral mucosa, dentition normal - Neck Neck: Present: supple, normal ROM - Respiratory Respiratory effort: normal Respiratory: bilateral: CTA - Cardiovascular Rhythm: regular Heart Sounds: Present: S1 & S2. Absent: gallop, rub - Extremities Extremities: no ischemia, No edema, Full ROM - Abdominal General gastrointestinal: soft, non-tender, non-distended, normal bowel sounds - Integumentary Integumentary: Present: clear, warm, dry - Neurologic Neurologic: CNII-XII intact, moves all extremities HEART Score - HEART Score EKG: Normal Age: 45-65 Risk factors: > 3 risk factors or hx of atherosclerotic disease Troponin: Troponin T < 0.010 ng/mL (0.00-0.029) 01/29/22 15:59 Troponin: < normal limit - Critical Actions Critical Actions: 0-3 pts:0.9-1.7%risk of adverse cardiac event.Candidate for discharge Results - Labs CBC & Chem 7: 02/01/22 05:13 01/31/22 05:30 Labs: Laboratory Last Values WBC 8.2 K/mm3 (4.5-11.0) 02/01/22 05:13 RBC 3.95 M/mm3 (3.65-5.03) 02/01/22 05:13 Hgb 10.5 gm/dl (10.1-14.3) 02/01/22 05:13 Hct 34.6 % (30.3-42.9) 02/01/22 05:13 MCV 88 fl (79-97) 02/01/22 05:13 MCH 27 pg (28-32) L 02/01/22 05:13 MCHC 30 % (30-34) 02/01/22 05:13 RDW 18.6 % (13.2-15.2) H 02/01/22 05:13 Plt Count 245 K/mm3 (140-440) 02/01/22 05:13 Lymph % (Auto) 14.5 % (13.4-35.0) 01/28/22 12:43 Harmon % (Auto) 9.2 % (0.0-7.3) H 01/28/22 12:43 Eos % (Auto) 2.0 % (0.0-4.3) 01/28/22 12:43 Baso % (Auto) 0.5 % (0.0-1.8) 01/28/22 12:43 Lymph # (Auto) 1.0 K/mm3 (1.2-5.4) L 01/28/22 12:43 Harmon # (Auto) 0.6 K/mm3 (0.0-0.8) 01/28/22 12:43 Eos # (Auto) 0.1 K/mm3 (0.0-0.4) 01/28/22 12:43 Baso # (Auto) 0.0 K/mm3 (0.0-0.1) 01/28/22 12:43 Add Manual Diff Complete 01/29/22 04:35 Total Counted 100 01/29/22 04:35 Seg Neutrophils % Kitchen Chef 01/29/22 04:35 Seg Neuts % (Manual) 97.0 % (40.0-70.0) H 01/29/22 04:35 Band Neutrophils % 0 % 01/29/22 04:35 Lymphocytes % (Manual) 2.0 % (13.4-35.0) L 01/29/22 04:35 Reactive Lymphs % (Man) 0 % 01/29/22 04:35 Monocytes % (Manual) 1.0 % (0.0-7.3) 01/29/22 04:35 Eosinophils % (Manual) 0 % (0.0-4.3) 01/29/22 04:35 Basophils % (Manual) 0 % (0.0-1.8) 01/29/22 04:35 Metamyelocytes % 0 % 01/29/22 04:35 Myelocytes % 0 % 01/29/22 04:35 Promyelocytes % 0 % 01/29/22 04:35 Blast Cells % 0 % 01/29/22 04:35 Nucleated RBC % Not Reportable 01/29/22 04:35 Seg Neutrophils # 4.8 K/mm3 (1.8-7.7) 01/28/22 12:43 Seg Neutrophils # Man 5.5 K/mm3 (1.8-7.7) 01/29/22 04:35 Band Neutrophils # 0.0 K/mm3 01/29/22 04:35 Lymphocytes # (Manual) 0.1 K/mm3 (1.2-5.4) L 01/29/22 04:35 Abs React Lymphs (Man) 0.0 K/mm3 01/29/22 04:35 Monocytes # (Manual) 0.1 K/mm3 (0.0-0.8) 01/29/22 04:35 Eosinophils # (Manual) 0.0 K/mm3 (0.0-0.4) 01/29/22 04:35 Basophils # (Manual) 0.0 K/mm3 (0.0-0.1) 01/29/22 04:35 Metamyelocytes # 0.0 K/mm3 01/29/22 04:35 Myelocytes # 0.0 K/mm3 01/29/22 04:35 Promyelocytes # 0.0 K/mm3 01/29/22 04:35 Blast Cells # 0.0 K/mm3 01/29/22 04:35 WBC Morphology Not Reportable 01/29/22 04:35 Hypersegmented Neuts Not Reportable 01/29/22 04:35 Hyposegmented Neuts Not Reportable 01/29/22 04:35 Hypogranular Neuts Not Reportable 01/29/22 04:35 Smudge Cells Not Reportable 01/29/22 04:35 Toxic Granulation Not Reportable 01/29/22 04:35 Toxic Vacuolation Not Reportable 01/29/22 04:35 Dohle Bodies Not Reportable 01/29/22 04:35 Pelger-Huet Anomaly Not Reportable 01/29/22 04:35 Papa Rods Not Reportable 01/29/22 04:35 Platelet Estimate Consistent w auto 01/29/22 04:35 Clumped Platelets Not Reportable 01/29/22 04:35 Plt Clumps, EDTA Not Reportable 01/29/22 04:35 Large Platelets Not Reportable 01/29/22 04:35 Giant Platelets Not Reportable 01/29/22 04:35 Platelet Satelliting Not Reportable 01/29/22 04:35 Plt Morphology Comment Not Reportable 01/29/22 04:35 RBC Morphology Not Reportable 01/29/22 04:35 Dimorphic RBCs Not Reportable 01/29/22 04:35 Polychromasia Not Reportable 01/29/22 04:35 Hypochromasia Not Reportable 01/29/22 04:35 Poikilocytosis Not Reportable 01/29/22 04:35 Anisocytosis 1+ 01/29/22 04:35 Microcytosis Not Reportable 01/29/22 04:35 Macrocytosis Not Reportable 01/29/22 04:35 Spherocytes Not Reportable 01/29/22 04:35 Pappenheimer Bodies Not Reportable 01/29/22 04:35 Sickle Cells Not Reportable 01/29/22 04:35 Target Cells Not Reportable 01/29/22 04:35 Tear Drop Cells Not Reportable 01/29/22 04:35 Ovalocytes Not Reportable 01/29/22 04:35 Helmet Cells Not Reportable 01/29/22 04:35 Landry-[place] Bodies Not Reportable 01/29/22 04:35 [place] Rings Not Reportable 01/29/22 04:35 Jerome Cells Not Reportable 01/29/22 04:35 Bite Cells Not Reportable 01/29/22 04:35 Crenated Cell Not Reportable 01/29/22 04:35 Elliptocytes Not Reportable 01/29/22 04:35 Acanthocytes (Spur) Not Reportable 01/29/22 04:35 Rouleaux Not Reportable 01/29/22 04:35 Hemoglobin C Crystals Not Reportable 01/29/22 04:35 Schistocytes Not Reportable 01/29/22 04:35 Malaria parasites Not Reportable 01/29/22 04:35 Guillermo Bodies Not Reportable 01/29/22 04:35 Hem Pathologist Commnt No 01/29/22 04:35 PT 15.8 Sec. (12.2-14.9) H 01/28/22 18:56 INR 1.13 (0.87-1.13) 01/28/22 18:56 APTT 33.9 Sec. (24.2-36.6) 01/28/22 18:56 ABG pH 7.366 pH Units (7.350-7.450) 01/29/22 Unknown ABG pCO2 74.0 mm Hg 01/29/22 Unknown ABG pO2 58.0 mm Hg (80.0-90.0) L 01/29/22 Unknown ABG HCO3 41.5 mmol/L (20.0-26.0) H 01/29/22 Unknown ABG O2 Saturation 89.7 % (95.0-99.0) L 01/29/22 Unknown ABG O2 Content 11.1 (0.0-44) 01/29/22 Unknown ABG Base Excess 14.0 mmol/L (-2.0-3.0) H 01/29/22 Unknown ABG Hemoglobin 9.0 gm/dl (12.0-16.0) L 01/29/22 Unknown ABG Carboxyhemoglobin 2.5 % (0.0-5.0) 01/29/22 Unknown ABG Methemoglobin 0.4 % (0.0-1.5) 01/29/22 Unknown Oxyhemoglobin 87.1 % (95.0-99.0) L 01/29/22 Unknown FiO2 36 % 01/29/22 Unknown Sodium 141 mmol/L (137-145) 01/30/22 04:32 Potassium 4.8 mmol/L (3.6-5.0) 01/30/22 04:32 Chloride 96.4 mmol/L (98-107) L 01/30/22 04:32 Carbon Dioxide 38 mmol/L (22-30) H 01/30/22 04:32 Anion Gap 11 mmol/L 01/30/22 04:32 BUN 28 mg/dL (7-17) H 01/30/22 04:32 Creatinine 1.9 mg/dL (0.6-1.2) H 01/31/22 05:30 Estimated GFR 33 ml/min 01/31/22 05:30 BUN/Creatinine Ratio 16 % 01/30/22 04:32 Glucose 149 mg/dL (65-100) H 01/30/22 04:32 Calcium 10.0 mg/dL (8.4-10.2) 01/30/22 04:32 Total Bilirubin 0.60 mg/dL (0.1-1.2) 01/29/22 04:35 AST 14 units/L (5-40) 01/29/22 04:35 ALT 9 units/L (7-56) 01/29/22 04:35 Alkaline Phosphatase 117 units/L (35-129) 01/29/22 04:35 Troponin T < 0.010 ng/mL (0.00-0.029) 01/29/22 15:59 NT-Pro-B Natriuret Pep 1347 pg/mL (0-900) H 01/28/22 12:43 Total Protein 8.7 g/dL (6.3-8.2) H 01/29/22 04:35 Albumin 3.3 g/dL (3.9-5) L 01/29/22 04:35 Albumin/Globulin Ratio 0.6 % 01/29/22 04:35 Small/IV: Voiding Method Indwelling Catheter Active Medications - Current Medications Current Medications: Generic Name Dose Route Start Last Admin Trade Name Freq PRN Reason Stop Dose Admin Acetaminophen 650 mg 01/28/22 18:16 Acetaminophen 325 Mg Tab PO Q4H PRN Pain MILD(1-3)/Fever >100.5/CHAVEZ Albuterol 2.5 mg 01/28/22 18:12 Albuterol 2.5 Mg/3 Ml Nebu IH Q4HRT PRN Shortness Of Breath Albuterol/Ipratropium 1 ampul 01/30/22 08:00 02/02/22 08:31 Ipratropium/Albuterol Sulfate 3 Ml Ampul.Neb IH 1 ampul TIDRT MARCELLA Administration Amiodarone HCl 200 mg 01/28/22 19:00 02/01/22 09:35 Amiodarone 200 Mg Tab PO 200 mg QDAY MARCELLA Administration Amlodipine Besylate 10 mg 01/28/22 19:00 02/01/22 09:35 Amlodipine 10 Mg Tab PO 10 mg QDAY MARCELLA Administration Apixaban 5 mg 01/28/22 22:00 02/01/22 21:30 Apixaban 5 Mg Tab PO 5 mg Q12HR MARCELLA Administration Protocol Ascorbic Acid 500 mg 01/28/22 22:00 02/01/22 21:29 Ascorbic Acid 500 Mg Tab PO 500 mg BID MARCELLA Administration Aspirin 81 mg 01/28/22 19:00 02/01/22 09:35 Aspirin 81 Mg Tab Chew PO 81 mg QDAY MARCELLA Administration Atenolol 25 mg 01/28/22 19:00 02/01/22 09:35 Atenolol 25 Mg Tab PO 25 mg DAILY MARCELLA Administration Atorvastatin Calcium 40 mg 01/28/22 22:00 02/01/22 21:30 Atorvastatin 40 Mg Tab PO 40 mg QHS MARCELLA Administration Diltiazem HCl 120 mg 01/28/22 19:00 02/01/22 09:37 Diltiazem Cd 120 Mg Cap PO 120 mg QDAY MARCELLA Administration Diphenhydramine HCl 25 mg 01/28/22 20:57 01/29/22 21:14 Diphenhydramine 50 Mg/Ml Vial IV 25 mg Q4H PRN Administration Itching Furosemide 40 mg 02/01/22 18:00 02/02/22 05:51 Furosemide 40 Mg Tab PO 40 mg 0600,1800 MARCELLA Administration Gabapentin 300 mg 01/28/22 22:00 02/01/22 21:29 Gabapentin 300 Mg Cap PO 300 mg BID MARCELLA Administration Hydralazine HCl 100 mg 01/29/22 14:00 02/01/22 21:30 Hydralazine 100 Mg Tab PO 100 mg TID MARCELLA Administration Labetalol HCl 10 mg 01/29/22 14:00 01/29/22 17:38 Labetalol 20 Mg/4 Ml Inj IV 10 mg Q4HR PRN Administration sbp>160 Morphine Sulfate 2 mg 01/28/22 18:39 02/02/22 05:51 Morphine 2 Mg/1 Ml Inj IV 2 mg Q4H PRN Administration Pain, Moderate (4-6) Ondansetron HCl 4 mg 01/28/22 18:16 Ondansetron 4 Mg/2 Ml Inj IV Q8H PRN Nausea And Vomiting Pantoprazole Sodium 40 mg 01/30/22 13:00 02/01/22 09:35 Pantoprazole 40 Mg Tab PO 40 mg QDAC MARCELLA Administration Prednisone 20 mg 02/02/22 10:00 Prednisone 20 Mg Tab PO QDAY MARCELLA Sodium Chloride 10 ml 01/28/22 22:00 02/01/22 21:30 Sodium Chloride 0.9% 10 Ml Flush Syringe IV 10 ml BID MARCELLA Administration Sodium Chloride 10 ml 01/28/22 18:16 Sodium Chloride 0.9% 10 Ml Flush Syringe IV PRN PRN LINE FLUSH Tramadol HCl 50 mg 01/28/22 18:12 01/29/22 10:09 Tramadol 50 Mg Tab PO 50 mg Q6H PRN Administration Pain, Moderate (4-6) Zinc Sulfate 220 mg 01/28/22 22:00 02/01/22 21:29 Zinc Sulfate 220 Mg Cap PO 220 mg BID MARCELLA Administration
[2022-02-02] MEDS: dilTIAZem CD 120 MG CAP PO SCH (09:35)
--- NOTE | 2022-02-02 12:11 | Progress Note ---
Assessment and Plan - Patient Problems (1) Shortness of breath Current Visit: Yes Status: Acute Plan to address problem: It will be recalled that she presented to the hospital with shortness of breath and hypoxemia. She has a history of morbid obesity, obstructive sleep apnea and chronic hypoventilation syndrome. She admits to poor compliance with her home CPAP, which she finds uncomfortable to wear. Echocardiogram on this presentation shows normal left ventricular systolic function with ejection fraction 55%. Major finding on the echo is severe cor pulmonale with dilated right heart chambers, moderate to severe tricuspid regurgitation, and moderate to severe pulmonary hypertension. We will defer to pulmonary for management of the patient's pulmonary disease which is etiology of her chronic dyspnea and hypoxemia. Subjective Date of service: 02/02/22 Principal diagnosis: Shortness of breath and hypoxemia Interval history: Patient is comfortable in no acute distress. No new cardiac events reported. 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 Objective Vital Signs Temp Pulse Pulse Resp Resp Resp BP 02/02/22 11:45 98.6 F 56 L 22 138/73 02/02/22 10:00 02/02/22 08:30 75 19 02/02/22 07:58 97.7 F 82 24 159/83 02/02/22 06:21 18 02/02/22 05:51 17 02/02/22 05:20 97.7 F 60 17 02/02/22 02:03 17 02/02/22 01:33 18 02/01/22 22:00 62 17 18 02/01/22 21:30 17 02/01/22 21:27 98.3 F 59 L 17 02/01/22 19:57 60 20 02/01/22 19:54 02/01/22 17:26 98.7 F 63 24 123/56 02/01/22 14:00 59 L 18 02/01/22 12:25 97.6 F 53 L 24 130/66 BP Pulse Ox 02/02/22 11:45 94 02/02/22 10:00 94 02/02/22 08:30 02/02/22 07:58 93 02/02/22 06:21 02/02/22 05:51 02/02/22 05:20 149/61 91 02/02/22 02:03 02/02/22 01:33 02/01/22 22:00 92 02/01/22 21:30 02/01/22 21:27 137/62 91 02/01/22 19:57 02/01/22 19:54 92 02/01/22 17:26 88 02/01/22 14:00 02/01/22 12:25 89 - Physical Examination General: Other (Morbidly obese) HEENT: Positive: PERRL Neck: Positive: neck supple Cardiac: Positive: Reg Rate and Rhythm Lungs: Positive: Decreased Breath Sounds Neuro: Positive: Grossly Intact Abdomen: Positive: Soft Skin: Positive: Clear Extremities: Present: edema (Trace) - Imaging and Cardiology EKG: report reviewed (And his rhythm, heart rate of 72, probable left atrial enlargement) - Allied health notes Allied health notes reviewed: nursing
--- NOTE | 2022-02-02 13:31 | Progress Note ---
Assessment and Plan 64-year-old female with morbid obesity-current BMI of 70.7 Kg/M2 and weighing about 400 pounds on home oxygen up to 4 L nasal cannula comes in for shortness of breath chest pain, headache and diarrhea. Patient states that she has been short of breath for last couple years and her oxygen levels usually run around 85-90. She has been able to walk to the restroom and ADLs till 1 month ago. Now she is nearly bedridden. Uses bedside commode. Patient also complaining back pain and Kidney stones. No fever or chills. Patient is very hypoxic in the emergency room with oxygen at low 80s. Patient is supposed to be on CPAP at home for obstructive sleep apnea but does not use because of inconvenience. Patient has history of Hypertension,CHF,Pulmonary emboli, COPD, Arthritis, Obstructive sleep apnea and Obesity hypoventilation. Patients surgical history and Gastric Bypass in 2006. Patient has history of smoking 1 pack x 20 years. Stopped smoking 10 years ago. Denies alcohol or drug abuse. 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 Allergic to Levofloxacin and EGGS. Patient awake. Resting on 4 litres O2. O2 saturation 94%. No acute respiratory distress.Patient does not want to use CPAP or BIPAP. Patient says getting dizziness at times. Management as per primary care. Recommend to consult neurology. Patients blood gases on 4 litres O2 ABG pH 7.366 pH Units (7.350-7.450) 01/29/22 Unknown ABG pCO2 74.0 mm Hg 01/29/22 Unknown ABG pO2 58.0 mm Hg (80.0-90.0) L 01/29/22 Unknown ABG O2 Saturation 89.7 % (95.0-99.0) L 01/29/22 Unknown Patient afebrile. No leukocytosis. Blood pressure 138/73, Pulse 56 , Respirations 22. Chest xray done 01/28/22 reported indings are most characteristic of congestive heart failure with venous congestion, pulmonary edema and enlargement of the cardiac silhouette. Patient is on PO prednisone, Albuterol/atrovent aerosol treatments, Apixaban and Protonix.. C - Patient Problems (1) Acute respiratory failure with hypoxia Current Visit: Yes Status: Acute Plan to address problem: O2 4 litres via nasal canula. Continue PO prednisone.. Continue Apixaban. Continue famotidine. Recommend to use BIPAP. Patient does not want to use BIPAP. (2) Acute exacerbation of CHF (congestive heart failure) Current Visit: Yes Status: Acute Qualifiers: Heart failure type: unspecified Qualified Code(s): I50.9 - Heart failure, unspecified Plan to address problem: Patient is on Lasix. Management as per cardiology. (3) Atypical chest pain Current Visit: Yes Status: Acute Plan to address problem: Management as per cardiology. (4) Hypertension Current Visit: Yes Status: Chronic Qualifiers: Hypertension type: primary hypertension Qualified Code(s): I10 - Essential (primary) hypertension Plan to address problem: Management as per primary care and cardiology. (5) Morbid obesity with BMI of 70 and over, adult Current Visit: Yes Status: Acute Plan to address problem: Counseled to loose weight. Diet and exercise. (6) Obesity hypoventilation syndrome Current Visit: No Status: Acute Plan to address problem: Patient does not want to use CPAP or BIPAP Recommend Positional therapy. Recommend to sleep on prone position. (7) Sleep apnea in adult Current Visit: No Status: Acute Plan to address problem: Patient does not want to use CPAP or BIPAP Recommend Positional therapy. Recommend to sleep on prone position. Subjective Date of service: 02/02/22 Principal diagnosis: Shortness of breath and hypoxemia Interval history: 64-year-old female with morbid obesity-current BMI of 70.7 Kg/M2 and weighing about 400 pounds on home oxygen up to 4 L nasal cannula comes in for shortness of breath chest pain, headache and diarrhea. Patient states that she has been short of breath for last couple years and her oxygen levels usually run around 85-90. She has been able to walk to the restroom and ADLs till 1 month ago. Now she is nearly bedridden. Uses bedside commode. Patient also complaining back pain and Kidney stones. No fever or chills. Patient is very hypoxic in the emergency room with oxygen at low 80s. Patient is supposed to be on CPAP at home for obstructive sleep apnea but does not use because of inconvenience. Patient has history of Hypertension,CHF,Pulmonary emboli, COPD, Arthritis, Obstructive sleep apnea and Obesity hypoventilation. Patients surgical history and Gastric Bypass in 2006. Patient has history of smoking 1 pack x 20 years. Stopped smoking 10 years ago. Denies alcohol or drug abuse. 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 Allergic to Levofloxacin and EGGS. Patient awake. Resting on 4 litres O2. O2 saturation 94%. No acute respiratory distress.Patient does not want to use CPAP or BIPAP. Patient says getting dizziness at times. Management as per primary care. Patients blood gases on 4 litres O2 ABG pH 7.366 pH Units (7.350-7.450) 01/29/22 Unknown ABG pCO2 74.0 mm Hg 01/29/22 Unknown ABG pO2 58.0 mm Hg (80.0-90.0) L 01/29/22 Unknown ABG O2 Saturation 89.7 % (95.0-99.0) L 01/29/22 Unknown Patient afebrile. No leukocytosis. Blood pressure 138/73, Pulse 56 , Respirations 22. Chest xray done 01/28/22 reported indings are most characteristic of congestive heart failure with venous congestion, pulmonary edema and enlargement of the cardiac silhouette. Patient is on PO prednisone, Albuterol/atrovent aerosol treatments, Apixaban and Protonix.. Objective Vital Signs - 12hr 02/02/22 02/02/22 02/02/22 01:33 02:03 05:20 Temperature 97.7 F Pulse Rate 60 Pulse Rate [ Bilateral Throughout] Respiratory 18 17 17 Rate Respiratory Rate [Bilateral Throughout] Blood Pressure Blood Pressure 149/61 [Left] O2 Sat by Pulse 91 Oximetry 02/02/22 02/02/22 02/02/22 05:51 06:21 07:58 Temperature 97.7 F Pulse Rate 82 Pulse Rate [ Bilateral Throughout] Respiratory 17 18 24 Rate Respiratory Rate [Bilateral Throughout] Blood Pressure 159/83 Blood Pressure [Left] O2 Sat by Pulse 93 Oximetry 02/02/22 02/02/22 02/02/22 08:30 10:00 11:45 Temperature 98.6 F Pulse Rate 56 L Pulse Rate [ 75 Bilateral Throughout] Respiratory 22 Rate Respiratory 19 Rate [Bilateral Throughout] Blood Pressure 138/73 Blood Pressure [Left] O2 Sat by Pulse 94 94 Oximetry Constitutional: no acute distress, alert, other (Morbidly Obese.) Eyes: non-icteric ENT: oropharynx moist Neck: supple, no lymphadenopathy, no JVD Effort: mildly labored Ascultation: Bilateral: diminished breath sounds Cardiovascular: regular rate and rhythm Gastrointestinal: normoactive bowel sounds, soft, non-tender, other (Obese, Small catheter) Integumentary: normal Extremities: no cyanosis, other (Stasis dermatitis) Neurologic: normal mental status, non-focal exam, pupils equal and round Psychiatric: mood appropriate, affect normal CBC and BMP: 02/01/22 05:13 01/31/22 05:30 ABG, PT/INR, D-dimer: ABG ABG pH 7.366 pH Units (7.350-7.450) 01/29/22 Unknown ABG pCO2 74.0 mm Hg 01/29/22 Unknown ABG pO2 58.0 mm Hg (80.0-90.0) L 01/29/22 Unknown ABG O2 Saturation 89.7 % (95.0-99.0) L 01/29/22 Unknown PT/INR, D-dimer PT 15.8 Sec. (12.2-14.9) H 01/28/22 18:56 INR 1.13 (0.87-1.13) 01/28/22 18:56 Abnormal lab findings: Abnormal Labs 01/28/22 01/28/22 01/28/22 12:43 12:43 12:43 RBC 3.27 L Hgb 8.8 L Hct 28.8 L MCH 27 L MCHC RDW 18.0 H [place] % (Auto) 9.2 H Lymph # (Auto) 1.0 L Seg Neutrophils % 73.8 H Seg Neuts % (Manual) Lymphocytes % (Manual) Lymphocytes # (Manual) PT ABG pO2 ABG HCO3 ABG O2 Saturation ABG Base Excess ABG Hemoglobin Oxyhemoglobin Potassium 5.1 H Chloride Carbon Dioxide 38 H BUN 20 H Creatinine 1.6 H Glucose NT-Pro-B Natriuret Pep 1347 H Total Protein Albumin 3.2 L 01/28/22 01/28/22 01/28/22 18:56 18:56 18:56 RBC 3.32 L Hgb 8.8 L Hct 29.4 L MCH 27 L MCHC RDW 17.7 H [place] % (Auto) Lymph # (Auto) Seg Neutrophils % Seg Neuts % (Manual) Lymphocytes % (Manual) Lymphocytes # (Manual) PT 15.8 H ABG pO2 ABG HCO3 ABG O2 Saturation ABG Base Excess ABG Hemoglobin Oxyhemoglobin Potassium Chloride Carbon Dioxide BUN Creatinine 1.6 H Glucose NT-Pro-B Natriuret Pep Total Protein Albumin 01/29/22 01/29/22 01/29/22 04:35 04:35 Unknown RBC Hgb 9.7 L Hct MCH 26 L MCHC 29 L RDW 18.0 H [place] % (Auto) Lymph # (Auto) Seg Neutrophils % Seg Neuts % (Manual) 97.0 H Lymphocytes % (Manual) 2.0 L Lymphocytes # (Manual) 0.1 L PT ABG pO2 58.0 L ABG HCO3 41.5 H ABG O2 Saturation 89.7 L ABG Base Excess 14.0 H ABG Hemoglobin 9.0 L Oxyhemoglobin 87.1 L Potassium 5.6 H Chloride Carbon Dioxide 36 H BUN 21 H Creatinine 1.6 H Glucose 109 H NT-Pro-B Natriuret Pep Total Protein 8.7 H Albumin 3.3 L 01/30/22 01/30/22 01/31/22 04:32 04:32 05:30 RBC 3.64 L Hgb 9.5 L Hct MCH 26 L MCHC RDW 18.3 H [place] % (Auto) Lymph # (Auto) Seg Neutrophils % Seg Neuts % (Manual) Lymphocytes % (Manual) Lymphocytes # (Manual) PT ABG pO2 ABG HCO3 ABG O2 Saturation ABG Base Excess ABG Hemoglobin Oxyhemoglobin Potassium Chloride 96.4 L Carbon Dioxide 38 H BUN 28 H Creatinine 1.8 H 1.9 H Glucose 149 H NT-Pro-B Natriuret Pep Total Protein Albumin 02/01/22 05:13 RBC Hgb Hct MCH 27 L MCHC RDW 18.6 H [place] % (Auto) Lymph # (Auto) Seg Neutrophils % Seg Neuts % (Manual) Lymphocytes % (Manual) Lymphocytes # (Manual) PT ABG pO2 ABG HCO3 ABG O2 Saturation ABG Base Excess ABG Hemoglobin Oxyhemoglobin Potassium Chloride Carbon Dioxide BUN Creatinine Glucose NT-Pro-B Natriuret Pep Total Protein Albumin Allied health notes reviewed: nursing
[2022-02-03 05:13] LABS: Mean Corpuscular HGB Conc 30 % (30-34); Mean Corpuscular Volume 87 fl (79-97); Platelet Count 239 K/mm3 (140-440); Red Blood Count 4.17 M/mm3 (3.65-5.03); Red Cell Distribution Width 18.8 % (13.2-15.2)
[2022-02-03 05:14] LABS: Hematocrit 36.4 % (30.3-42.9); Hemoglobin 10.9 gm/dl (10.1-14.3)
[2022-02-03] MEDS: FUROSEMIDE 40 MG TAB PO SCH ×2 (06:24→17:46)
[2022-02-03] MEDS: IPRATROPIUM/ALBUTEROL SULFATE 3 ML AMPUL.NEB IH SCH ×3 (08:54→20:48)
--- NOTE | 2022-02-03 10:04 | Progress Note ---
Assessment and Plan Assessment and plan: 64-year-old female with morbid obesity-current BMI of 70.7 and weighing about 400 pounds on home oxygen up to 4 L nasal cannula comes in for shortness of breath chest pain, headache and diarrhea. Patient states that she has been short of breath for last couple years and her oxygen levels usually run around 85-90. She has been able to walk to the restroom and ADLs till 1 month ago. Now she is nearly bedridden. Uses bedside commode. No fever or chills. Patient is very hypoxic in the emergency room with oxygen at low 80s. Patient is supposed to be on CPAP at home for obstructive sleep apnea but does not use because of inconvenience. Assessment and Plan: #Acute respiratory failure with hypoxia Currently on supplemental oxygen 4 L/min Etiology secondary to pulmonary hypertension, severe cord pulmonale and OHS/LUZ MARINA - Continue afterload reduction and diuresis Pulmonary following #Severe pulmonary hypertension #Severe cor pulmonale with dilated right heart chamber #Moderate to severe tricuspid regurgitation #Compensated diastolic heart failure -Elevated BNP on admission - CXR findings consistent with pulmonary edema from congestive heart failure -ECHO revealed left ventricular systolic function normal with concentric left ventricular hypertrophy and EF of 55%. Right ventricle is moderate to severely dilated. -Moderate to severe pulmonary hypertension -daily weights -I/O's -Lasix IV BID -Cardiology following #Obesity hypoventilation syndrome Elevated BMI, recommend BiPAP nightly #Paroxysmal atrial fibrillation -Continue home diltiazem and Eliquis #Essential hypertension -Amlodipine, atenolol, Lasix Added hydralazine 100 mg p.o. 3 times daily #Hyperkalemia 5.5, administered IV calcium gluconate on admission Suspect this is Aldactone related, hold Aldactone for that at this time Trend on serial BMP #Acute kidney injury due to vasomotor nephropathy - Admission Cr: 1.6, Baseline Cr: 1.21.6 - etiology: Possibly medication related - avoid nephrotoxic agents - monitor I/O's - renal adjust medications - daily renal profile #Morbid Obesity - BMI 70.7 - Counseled patient on the importance of weight loss, incorporating exercise, and dietary changes (lean meats, fresh fruits and vegetables, and water intake). Patient expresses understanding. Hospital Course: 01/29: elevated BP this Am. restarted home medications, added hydralazine for BP optimization. Continue diuresis with lasix 40 IV BID. Patient requested to be DNR/AND. Paper work signed and status updated in chart. Follow kidney fx on serial bmp. Can likely be downgraded to floor tomorrow. Patient is bedbound due to morbid obesity, family having trouble supporting her at home. CM/SW consulted for assistance. 01/31: Patient still requiring 5 L O2 to maintain saturations greater than 92%. We will obtain physical therapy evaluation to assess disposition. 02/01: Patient with 4 L O2 and saturations greater than 92%. [facility] rehab accepted the patient. 02/02: Awaiting insurance authorization for retirement placement. Respiratory status is stable and at baseline. Physical therapy recommends RICHIE we will transition to LTC/PALOMO with daily assistance 02/03: Awaiting retirement placement. History Interval history: No new issues overnight Hospitalist Physical - Constitutional Vitals: Temp Pulse Resp BP Pulse Ox 97.4 F L 62 20 135/67 94 02/02/22 21:57 02/03/22 08:00 02/03/22 08:00 02/03/22 05:22 02/03/22 08:57 General appearance: Present: no acute distress, well-nourished - EENT Eyes: Present: PERRL, EOM intact ENT: hearing intact, clear oral mucosa, dentition normal - Neck Neck: Present: supple, normal ROM - Respiratory Respiratory effort: normal Respiratory: bilateral: CTA - Cardiovascular Rhythm: regular Heart Sounds: Present: S1 & S2. Absent: gallop, rub - Extremities Extremities: no ischemia, No edema, Full ROM - Abdominal General gastrointestinal: soft, non-tender, non-distended, normal bowel sounds - Integumentary Integumentary: Present: clear, warm, dry - Neurologic Neurologic: CNII-XII intact, moves all extremities HEART Score - HEART Score EKG: Normal Age: 45-65 Risk factors: > 3 risk factors or hx of atherosclerotic disease Troponin: Troponin T < 0.010 ng/mL (0.00-0.029) 01/29/22 15:59 Troponin: < normal limit - Critical Actions Critical Actions: 0-3 pts:0.9-1.7%risk of adverse cardiac event.Candidate for discharge Results - Labs CBC & Chem 7: 02/03/22 04:56 02/03/22 04:56 Labs: Laboratory Last Values WBC 8.5 K/mm3 (4.5-11.0) 02/03/22 04:56 RBC 4.17 M/mm3 (3.65-5.03) 02/03/22 04:56 Hgb 10.9 gm/dl (10.1-14.3) 02/03/22 04:56 Hct 36.4 % (30.3-42.9) 02/03/22 04:56 MCV 87 fl (79-97) 02/03/22 04:56 MCH 26 pg (28-32) L 02/03/22 04:56 MCHC 30 % (30-34) 02/03/22 04:56 RDW 18.8 % (13.2-15.2) H 02/03/22 04:56 Plt Count 239 K/mm3 (140-440) 02/03/22 04:56 Lymph % (Auto) 14.5 % (13.4-35.0) 01/28/22 12:43 [place] % (Auto) 9.2 % (0.0-7.3) H 01/28/22 12:43 Eos % (Auto) 2.0 % (0.0-4.3) 01/28/22 12:43 Baso % (Auto) 0.5 % (0.0-1.8) 01/28/22 12:43 Lymph # (Auto) 1.0 K/mm3 (1.2-5.4) L 01/28/22 12:43 [place] # (Auto) 0.6 K/mm3 (0.0-0.8) 01/28/22 12:43 Eos # (Auto) 0.1 K/mm3 (0.0-0.4) 01/28/22 12:43 Baso # (Auto) 0.0 K/mm3 (0.0-0.1) 01/28/22 12:43 Add Manual Diff Complete 01/29/22 04:35 Total Counted 100 01/29/22 04:35 Seg Neutrophils % Overhauler Helper 01/29/22 04:35 Seg Neuts % (Manual) 97.0 % (40.0-70.0) H 01/29/22 04:35 Band Neutrophils % 0 % 01/29/22 04:35 Lymphocytes % (Manual) 2.0 % (13.4-35.0) L 01/29/22 04:35 Reactive Lymphs % (Man) 0 % 01/29/22 04:35 Monocytes % (Manual) 1.0 % (0.0-7.3) 01/29/22 04:35 Eosinophils % (Manual) 0 % (0.0-4.3) 01/29/22 04:35 Basophils % (Manual) 0 % (0.0-1.8) 01/29/22 04:35 Metamyelocytes % 0 % 01/29/22 04:35 Myelocytes % 0 % 01/29/22 04:35 Promyelocytes % 0 % 01/29/22 04:35 Blast Cells % 0 % 01/29/22 04:35 Nucleated RBC % Not Reportable 01/29/22 04:35 Seg Neutrophils # 4.8 K/mm3 (1.8-7.7) 01/28/22 12:43 Seg Neutrophils # Man 5.5 K/mm3 (1.8-7.7) 01/29/22 04:35 Band Neutrophils # 0.0 K/mm3 01/29/22 04:35 Lymphocytes # (Manual) 0.1 K/mm3 (1.2-5.4) L 01/29/22 04:35 Abs React Lymphs (Man) 0.0 K/mm3 01/29/22 04:35 Monocytes # (Manual) 0.1 K/mm3 (0.0-0.8) 01/29/22 04:35 Eosinophils # (Manual) 0.0 K/mm3 (0.0-0.4) 01/29/22 04:35 Basophils # (Manual) 0.0 K/mm3 (0.0-0.1) 01/29/22 04:35 Metamyelocytes # 0.0 K/mm3 01/29/22 04:35 Myelocytes # 0.0 K/mm3 01/29/22 04:35 Promyelocytes # 0.0 K/mm3 01/29/22 04:35 Blast Cells # 0.0 K/mm3 01/29/22 04:35 WBC Morphology Not Reportable 01/29/22 04:35 Hypersegmented Neuts Not Reportable 01/29/22 04:35 Hyposegmented Neuts Not Reportable 01/29/22 04:35 Hypogranular Neuts Not Reportable 01/29/22 04:35 Smudge Cells Not Reportable 01/29/22 04:35 Toxic Granulation Not Reportable 01/29/22 04:35 Toxic Vacuolation Not Reportable 01/29/22 04:35 Dohle Bodies Not Reportable 01/29/22 04:35 Pelger-Huet Anomaly Not Reportable 01/29/22 04:35 Papa Rods Not Reportable 01/29/22 04:35 Platelet Estimate Consistent w auto 01/29/22 04:35 Clumped Platelets Not Reportable 01/29/22 04:35 Plt Clumps, EDTA Not Reportable 01/29/22 04:35 Large Platelets Not Reportable 01/29/22 04:35 Giant Platelets Not Reportable 01/29/22 04:35 Platelet Satelliting Not Reportable 01/29/22 04:35 Plt Morphology Comment Not Reportable 01/29/22 04:35 RBC Morphology Not Reportable 01/29/22 04:35 Dimorphic RBCs Not Reportable 01/29/22 04:35 Polychromasia Not Reportable 01/29/22 04:35 Hypochromasia Not Reportable 01/29/22 04:35 Poikilocytosis Not Reportable 01/29/22 04:35 Anisocytosis 1+ 01/29/22 04:35 Microcytosis Not Reportable 01/29/22 04:35 Macrocytosis Not Reportable 01/29/22 04:35 Spherocytes Not Reportable 01/29/22 04:35 Pappenheimer Bodies Not Reportable 01/29/22 04:35 Sickle Cells Not Reportable 01/29/22 04:35 Target Cells Not Reportable 01/29/22 04:35 Tear Drop Cells Not Reportable 01/29/22 04:35 Ovalocytes Not Reportable 01/29/22 04:35 Helmet Cells Not Reportable 01/29/22 04:35 [place] Bodies Not Reportable 01/29/22 04:35 [place] Rings Not Reportable 01/29/22 04:35 [place] Cells Not Reportable 01/29/22 04:35 Bite Cells Not Reportable 01/29/22 04:35 Crenated Cell Not Reportable 01/29/22 04:35 Elliptocytes Not Reportable 01/29/22 04:35 Acanthocytes (Spur) Not Reportable 01/29/22 04:35 Rouleaux Not Reportable 01/29/22 04:35 Hemoglobin C Crystals Not Reportable 01/29/22 04:35 Schistocytes Not Reportable 01/29/22 04:35 Malaria parasites Not Reportable 01/29/22 04:35 Guillermo Bodies Not Reportable 01/29/22 04:35 Hem Pathologist Commnt No 01/29/22 04:35 PT 15.8 Sec. (12.2-14.9) H 01/28/22 18:56 INR 1.13 (0.87-1.13) 01/28/22 18:56 APTT 33.9 Sec. (24.2-36.6) 01/28/22 18:56 ABG pH 7.366 pH Units (7.350-7.450) 01/29/22 Unknown ABG pCO2 74.0 mm Hg 01/29/22 Unknown ABG pO2 58.0 mm Hg (80.0-90.0) L 01/29/22 Unknown ABG HCO3 41.5 mmol/L (20.0-26.0) H 01/29/22 Unknown ABG O2 Saturation 89.7 % (95.0-99.0) L 01/29/22 Unknown ABG O2 Content 11.1 (0.0-44) 01/29/22 Unknown ABG Base Excess 14.0 mmol/L (-2.0-3.0) H 01/29/22 Unknown ABG Hemoglobin 9.0 gm/dl (12.0-16.0) L 01/29/22 Unknown ABG Carboxyhemoglobin 2.5 % (0.0-5.0) 01/29/22 Unknown ABG Methemoglobin 0.4 % (0.0-1.5) 01/29/22 Unknown Oxyhemoglobin 87.1 % (95.0-99.0) L 01/29/22 Unknown FiO2 36 % 01/29/22 Unknown Sodium 141 mmol/L (137-145) 01/30/22 04:32 Potassium 4.8 mmol/L (3.6-5.0) 01/30/22 04:32 Chloride 96.4 mmol/L (98-107) L 01/30/22 04:32 Carbon Dioxide 38 mmol/L (22-30) H 01/30/22 04:32 Anion Gap 11 mmol/L 01/30/22 04:32 BUN 28 mg/dL (7-17) H 01/30/22 04:32 Creatinine 1.7 mg/dL (0.6-1.2) H 02/03/22 04:56 Estimated GFR 37 ml/min 02/03/22 04:56 BUN/Creatinine Ratio 16 % 01/30/22 04:32 Glucose 149 mg/dL (65-100) H 01/30/22 04:32 Calcium 10.0 mg/dL (8.4-10.2) 01/30/22 04:32 Total Bilirubin 0.60 mg/dL (0.1-1.2) 01/29/22 04:35 AST 14 units/L (5-40) 01/29/22 04:35 ALT 9 units/L (7-56) 01/29/22 04:35 Alkaline Phosphatase 117 units/L (35-129) 01/29/22 04:35 Troponin T < 0.010 ng/mL (0.00-0.029) 01/29/22 15:59 NT-Pro-B Natriuret Pep 1347 pg/mL (0-900) H 01/28/22 12:43 Total Protein 8.7 g/dL (6.3-8.2) H 01/29/22 04:35 Albumin 3.3 g/dL (3.9-5) L 01/29/22 04:35 Albumin/Globulin Ratio 0.6 % 01/29/22 04:35 Small/IV: Voiding Method Indwelling Catheter Active Medications - Current Medications Current Medications: Generic Name Dose Route Start Last Admin Trade Name Freq PRN Reason Stop Dose Admin Acetaminophen 650 mg 01/28/22 18:16 Acetaminophen 325 Mg Tab PO Q4H PRN Pain MILD(1-3)/Fever >100.5/CHAVEZ Albuterol 2.5 mg 01/28/22 18:12 02/03/22 06:00 Albuterol 2.5 Mg/3 Ml Nebu IH 2.5 mg Q4HRT PRN Administration Shortness Of Breath Albuterol/Ipratropium 1 ampul 01/30/22 08:00 02/03/22 08:54 Ipratropium/Albuterol Sulfate 3 Ml Ampul.Neb IH 1 ampul TIDRT MARCELLA Administration Amiodarone HCl 200 mg 01/28/22 19:00 02/02/22 09:29 Amiodarone 200 Mg Tab PO 200 mg QDAY MARCELLA Administration Amlodipine Besylate 10 mg 01/28/22 19:00 02/02/22 09:29 Amlodipine 10 Mg Tab PO 10 mg QDAY MARCELLA Administration Apixaban 5 mg 01/28/22 22:00 02/02/22 22:17 Apixaban 5 Mg Tab PO 5 mg Q12HR MARCELLA Administration Protocol Ascorbic Acid 500 mg 01/28/22 22:00 02/02/22 22:16 Ascorbic Acid 500 Mg Tab PO 500 mg BID MARCELLA Administration Aspirin 81 mg 01/28/22 19:00 02/02/22 09:29 Aspirin 81 Mg Tab Chew PO 81 mg QDAY MARCELLA Administration Atenolol 25 mg 01/28/22 19:00 02/02/22 09:29 Atenolol 25 Mg Tab PO 25 mg DAILY MARCELLA Administration Atorvastatin Calcium 40 mg 01/28/22 22:00 02/02/22 22:16 Atorvastatin 40 Mg Tab PO 40 mg QHS MARCELLA Administration Diltiazem HCl 120 mg 01/28/22 19:00 02/02/22 09:35 Diltiazem Cd 120 Mg Cap PO 120 mg QDAY MARCELLA Administration Diphenhydramine HCl 25 mg 01/28/22 20:57 01/29/22 21:14 Diphenhydramine 50 Mg/Ml Vial IV 25 mg Q4H PRN Administration Itching Furosemide 40 mg 02/01/22 18:00 02/03/22 06:24 Furosemide 40 Mg Tab PO 40 mg 0600,1800 MARCELLA Administration Gabapentin 300 mg 01/28/22 22:00 02/02/22 22:16 Gabapentin 300 Mg Cap PO 300 mg BID MARCELLA Administration Hydralazine HCl 100 mg 01/29/22 14:00 02/02/22 21:19 Hydralazine 100 Mg Tab PO 100 mg TID MARCELLA Administration Labetalol HCl 10 mg 01/29/22 14:00 01/29/22 17:38 Labetalol 20 Mg/4 Ml Inj IV 10 mg Q4HR PRN Administration sbp>160 Morphine Sulfate 2 mg 01/28/22 18:39 02/02/22 16:36 Morphine 2 Mg/1 Ml Inj IV 2 mg Q4H PRN Administration Pain, Moderate (4-6) Ondansetron HCl 4 mg 01/28/22 18:16 Ondansetron 4 Mg/2 Ml Inj IV Q8H PRN Nausea And Vomiting Pantoprazole Sodium 40 mg 01/30/22 13:00 02/02/22 09:29 Pantoprazole 40 Mg Tab PO 40 mg QDAC MARCELLA Administration Prednisone 20 mg 02/02/22 10:00 02/02/22 09:29 Prednisone 20 Mg Tab PO 20 mg QDAY MARCELLA Administration Sodium Chloride 10 ml 01/28/22 22:00 02/02/22 22:19 Sodium Chloride 0.9% 10 Ml Flush Syringe IV 10 ml BID MARCELLA Administration Sodium Chloride 10 ml 01/28/22 18:16 Sodium Chloride 0.9% 10 Ml Flush Syringe IV PRN PRN LINE FLUSH Tramadol HCl 50 mg 01/28/22 18:12 01/29/22 10:09 Tramadol 50 Mg Tab PO 50 mg Q6H PRN Administration Pain, Moderate (4-6) Zinc Sulfate 220 mg 01/28/22 22:00 02/02/22 22:16 Zinc Sulfate 220 Mg Cap PO 220 mg BID MARCELLA Administration
[2022-02-03] MEDS: ASPIRIN 81 MG TAB CHEW PO SCH (10:15)
[2022-02-03] MEDS: predniSONE 20 MG TAB PO SCH (10:15)
[2022-02-03] MEDS: dilTIAZem CD 120 MG CAP PO SCH (10:15)
[2022-02-03] MEDS: GABAPENTIN 300 MG CAP PO SCH ×2 (10:16→21:29)
[2022-02-03] MEDS: APIXABAN 5 MG TAB PO SCH ×2 (10:16→21:29)
[2022-02-03] MEDS: hydrALAZINE 100 MG TAB PO SCH ×3 (10:16→21:00)
[2022-02-03] MEDS: AMIODARONE 200 MG TAB PO SCH (10:16)
[2022-02-03] MEDS: PANTOPRAZOLE 40 MG TAB PO SCH (10:16)
[2022-02-03] MEDS: ASCORBIC ACID 500 MG TAB PO SCH ×2 (10:16→21:29)
[2022-02-03] MEDS: ZINC SULFATE 220 MG CAP PO SCH ×2 (10:16→21:29)
[2022-02-03] MEDS: amLODIPine 10 MG TAB PO SCH (10:16)
[2022-02-03] MEDS: atenoloL 25 MG TAB PO SCH (10:17)
--- NOTE | 2022-02-03 10:39 | Progress Note ---
Assessment and Plan - Patient Problems (1) Shortness of breath Current Visit: Yes Status: Acute Plan to address problem: It will be recalled that she presented to the hospital with shortness of breath and hypoxemia. She has a history of morbid obesity, obstructive sleep apnea and chronic hypoventilation syndrome. She admits to poor compliance with her home CPAP, which she finds uncomfortable to wear. Echocardiogram on this presentation shows normal left ventricular systolic function with ejection fraction 55%. Major finding on the echo is severe cor pulmonale with dilated right heart chambers, moderate to severe tricuspid regurgitation, and moderate to severe pulmonary hypertension. We will defer to pulmonary for management of the patient's pulmonary disease which is etiology of her chronic dyspnea and hypoxemia. Subjective Date of service: 02/03/22 Principal diagnosis: Shortness of breath and hypoxemia Interval history: Patient is comfortable, no acute distress. No new cardiac events reported. On quality assurance monitor body, there is a stable sinus rhythm at 61. Objective Vital Signs Temp Pulse Pulse Resp Resp BP Pulse Ox 02/03/22 10:14 136/69 02/03/22 08:57 94 02/03/22 08:00 62 20 02/03/22 06:10 84 20 02/03/22 05:22 56 L 20 135/67 95 02/02/22 22:00 19 95 02/02/22 21:57 97.4 F L 57 L 20 139/72 94 02/02/22 21:06 94 02/02/22 20:00 83 20 02/02/22 16:00 81 20 02/02/22 11:45 98.6 F 56 L 22 138/73 94 - Physical Examination General: Other (Morbidly obese) HEENT: Positive: PERRL Neck: Positive: neck supple Cardiac: Positive: Reg Rate and Rhythm Lungs: Positive: Decreased Breath Sounds Neuro: Positive: Grossly Intact Abdomen: Positive: Soft Skin: Positive: Clear Extremities: Present: edema (Trace) - Labs and Meds CBC 02/03/22 Range/Units 04:56 WBC 8.5 (4.5-11.0) K/mm3 RBC 4.17 (3.65-5.03) M/mm3 Hgb 10.9 (10.1-14.3) gm/dl Hct 36.4 (30.3-42.9) % Plt Count 239 (140-440) K/mm3 Comprehensive Metabolic Panel 02/03/22 Range/Units 04:56 Creatinine 1.7 H (0.6-1.2) mg/dL - Imaging and Cardiology EKG: report reviewed (And his rhythm, heart rate of 72, probable left atrial enlargement) - Allied health notes Allied health notes reviewed: nursing
--- NOTE | 2022-02-03 13:02 | Progress Note ---
Assessment and Plan 64-year-old female with morbid obesity-current BMI of 70.7 Kg/M2 and weighing about 400 pounds on home oxygen up to 4 L nasal cannula comes in for shortness of breath chest pain, headache and diarrhea. Patient states that she has been short of breath for last couple years and her oxygen levels usually run around 85-90. She has been able to walk to the restroom and ADLs till 1 month ago. Now she is nearly bedridden. Uses bedside commode. Patient also complaining back pain and Kidney stones. No fever or chills. Patient is very hypoxic in the emergency room with oxygen at low 80s. Patient is supposed to be on CPAP at home for obstructive sleep apnea but does not use because of inconvenience. Patient has history of Hypertension,CHF,Pulmonary emboli, COPD, Arthritis, Obstructive sleep apnea and Obesity hypoventilation. Patients surgical history and Gastric Bypass in 2006. Patient has history of smoking 1 pack x 20 years. Stopped smoking 10 years ago. Denies alcohol or drug abuse. 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 Allergic to Levofloxacin and EGGS. Patient awake. Resting on 4 litres O2. O2 saturation 96%. No acute respiratory distress. Patient does not want to use CPAP or BIPAP. Patient says getting dizziness at times. Management as per primary care. Patients blood gases on 4 litres O2 ABG pH 7.366 pH Units (7.350-7.450) 01/29/22 Unknown ABG pCO2 74.0 mm Hg 01/29/22 Unknown ABG pO2 58.0 mm Hg (80.0-90.0) L 01/29/22 Unknown ABG O2 Saturation 89.7 % (95.0-99.0) L 01/29/22 Unknown Patient afebrile. No leukocytosis. Blood pressure 136/69, Pulse 83, Respirations 20. Chest xray done 01/28/22 reported indings are most characteristic of congestive heart failure with venous congestion, pulmonary edema and enlargement of the cardiac silhouette. Patient is on PO prednisone, Albuterol/atrovent aerosol treatments, Apixaban and Protonix.. C - Patient Problems (1) Acute respiratory failure with hypoxia Current Visit: Yes Status: Acute Plan to address problem: O2 4 litres via nasal canula. Continue PO prednisone.. Continue Apixaban. Continue famotidine. Recommend to use BIPAP. Patient does not want to use BIPAP. (2) Acute exacerbation of CHF (congestive heart failure) Current Visit: Yes Status: Acute Qualifiers: Heart failure type: unspecified Qualified Code(s): I50.9 - Heart failure, unspecified Plan to address problem: Patient is on Lasix. Management as per cardiology. (3) Atypical chest pain Current Visit: Yes Status: Acute Plan to address problem: Management as per cardiology. (4) Hypertension Current Visit: Yes Status: Chronic Qualifiers: Hypertension type: primary hypertension Qualified Code(s): I10 - Essential (primary) hypertension Plan to address problem: Management as per primary care and cardiology. (5) Morbid obesity with BMI of 70 and over, adult Current Visit: Yes Status: Acute Plan to address problem: Counseled to loose weight. Diet and exercise. (6) Obesity hypoventilation syndrome Current Visit: No Status: Acute Plan to address problem: Patient does not want to use CPAP or BIPAP Recommend Positional therapy. Recommend to sleep on prone position. (7) Sleep apnea in adult Current Visit: No Status: Acute Plan to address problem: Patient does not want to use CPAP or BIPAP Recommend Positional therapy. Recommend to sleep on prone position. Subjective Date of service: 02/03/22 Principal diagnosis: Shortness of breath and hypoxemia Interval history: 64-year-old female with morbid obesity-current BMI of 70.7 Kg/M2 and weighing about 400 pounds on home oxygen up to 4 L nasal cannula comes in for shortness of breath chest pain, headache and diarrhea. Patient states that she has been short of breath for last couple years and her oxygen levels usually run around 85-90. She has been able to walk to the restroom and ADLs till 1 month ago. Now she is nearly bedridden. Uses bedside commode. Patient also complaining back pain and Kidney stones. No fever or chills. Patient is very hypoxic in the emergency room with oxygen at low 80s. Patient is supposed to be on CPAP at home for obstructive sleep apnea but does not use because of inconvenience. Patient has history of Hypertension,CHF,Pulmonary emboli, COPD, Arthritis, Obstructive sleep apnea and Obesity hypoventilation. Patients surgical history and Gastric Bypass in 2006. Patient has history of smoking 1 pack x 20 years. Stopped smoking 10 years ago. Denies alcohol or drug abuse. 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 Allergic to Levofloxacin and EGGS. Patient awake. Resting on 4 litres O2. O2 saturation 96%. No acute respiratory distress. Patient does not want to use CPAP or BIPAP. Patient says getting dizziness at times. Management as per primary care. Patients blood gases on 4 litres O2 ABG pH 7.366 pH Units (7.350-7.450) 01/29/22 Unknown ABG pCO2 74.0 mm Hg 01/29/22 Unknown ABG pO2 58.0 mm Hg (80.0-90.0) L 01/29/22 Unknown ABG O2 Saturation 89.7 % (95.0-99.0) L 01/29/22 Unknown Patient afebrile. No leukocytosis. Blood pressure 136/69, Pulse 83, Respirations 20. Chest xray done 01/28/22 reported indings are most characteristic of congestive heart failure with venous congestion, pulmonary edema and enlargement of the cardiac silhouette. Patient is on PO prednisone, Albuterol/atrovent aerosol treatments, Apixaban and Protonix.. Objective Vital Signs - 12hr 02/03/22 02/03/22 02/03/22 05:22 06:10 08:00 Pulse Rate 56 L Pulse Rate [ 84 62 Bilateral Throughout] Respiratory 20 Rate Respiratory 20 20 Rate [Bilateral Throughout] Blood Pressure 135/67 O2 Sat by Pulse 95 Oximetry 02/03/22 02/03/22 08:57 10:14 Pulse Rate Pulse Rate [ Bilateral Throughout] Respiratory Rate Respiratory Rate [Bilateral Throughout] Blood Pressure 136/69 O2 Sat by Pulse 94 Oximetry Constitutional: no acute distress, alert, other (Morbidly Obese.) Eyes: non-icteric ENT: oropharynx moist Neck: supple, no lymphadenopathy, no JVD Effort: mildly labored Ascultation: Bilateral: diminished breath sounds Cardiovascular: regular rate and rhythm Gastrointestinal: normoactive bowel sounds, soft, non-tender, other (Obese, Small catheter) Integumentary: normal Extremities: no cyanosis, other (Stasis dermatitis) Neurologic: normal mental status, non-focal exam, pupils equal and round Psychiatric: mood appropriate, affect normal CBC and BMP: 02/03/22 04:56 02/03/22 04:56 ABG, PT/INR, D-dimer: ABG ABG pH 7.366 pH Units (7.350-7.450) 01/29/22 Unknown ABG pCO2 74.0 mm Hg 01/29/22 Unknown ABG pO2 58.0 mm Hg (80.0-90.0) L 01/29/22 Unknown ABG O2 Saturation 89.7 % (95.0-99.0) L 01/29/22 Unknown PT/INR, D-dimer PT 15.8 Sec. (12.2-14.9) H 01/28/22 18:56 INR 1.13 (0.87-1.13) 01/28/22 18:56 Abnormal lab findings: Abnormal Labs 01/28/22 01/28/22 01/28/22 12:43 12:43 12:43 RBC 3.27 L Hgb 8.8 L Hct 28.8 L MCH 27 L MCHC RDW 18.0 H Wagoner % (Auto) 9.2 H Lymph # (Auto) 1.0 L Seg Neutrophils % 73.8 H Seg Neuts % (Manual) Lymphocytes % (Manual) Lymphocytes # (Manual) PT ABG pO2 ABG HCO3 ABG O2 Saturation ABG Base Excess ABG Hemoglobin Oxyhemoglobin Potassium 5.1 H Chloride Carbon Dioxide 38 H BUN 20 H Creatinine 1.6 H Glucose NT-Pro-B Natriuret Pep 1347 H Total Protein Albumin 3.2 L 01/28/22 01/28/22 01/28/22 18:56 18:56 18:56 RBC 3.32 L Hgb 8.8 L Hct 29.4 L MCH 27 L MCHC RDW 17.7 H [place] % (Auto) Lymph # (Auto) Seg Neutrophils % Seg Neuts % (Manual) Lymphocytes % (Manual) Lymphocytes # (Manual) PT 15.8 H ABG pO2 ABG HCO3 ABG O2 Saturation ABG Base Excess ABG Hemoglobin Oxyhemoglobin Potassium Chloride Carbon Dioxide BUN Creatinine 1.6 H Glucose NT-Pro-B Natriuret Pep Total Protein Albumin 01/29/22 01/29/22 01/29/22 04:35 04:35 Unknown RBC Hgb 9.7 L Hct MCH 26 L MCHC 29 L RDW 18.0 H [place] % (Auto) Lymph # (Auto) Seg Neutrophils % Seg Neuts % (Manual) 97.0 H Lymphocytes % (Manual) 2.0 L Lymphocytes # (Manual) 0.1 L PT ABG pO2 58.0 L ABG HCO3 41.5 H ABG O2 Saturation 89.7 L ABG Base Excess 14.0 H ABG Hemoglobin 9.0 L Oxyhemoglobin 87.1 L Potassium 5.6 H Chloride Carbon Dioxide 36 H BUN 21 H Creatinine 1.6 H Glucose 109 H NT-Pro-B Natriuret Pep Total Protein 8.7 H Albumin 3.3 L 01/30/22 01/30/22 01/31/22 04:32 04:32 05:30 RBC 3.64 L Hgb 9.5 L Hct MCH 26 L MCHC RDW 18.3 H [place] % (Auto) Lymph # (Auto) Seg Neutrophils % Seg Neuts % (Manual) Lymphocytes % (Manual) Lymphocytes # (Manual) PT ABG pO2 ABG HCO3 ABG O2 Saturation ABG Base Excess ABG Hemoglobin Oxyhemoglobin Potassium Chloride 96.4 L Carbon Dioxide 38 H BUN 28 H Creatinine 1.8 H 1.9 H Glucose 149 H NT-Pro-B Natriuret Pep Total Protein Albumin 02/01/22 02/03/22 02/03/22 05:13 04:56 04:56 RBC Hgb Hct MCH 27 L 26 L MCHC RDW 18.6 H 18.8 H [place] % (Auto) Lymph # (Auto) Seg Neutrophils % Seg Neuts % (Manual) Lymphocytes % (Manual) Lymphocytes # (Manual) PT ABG pO2 ABG HCO3 ABG O2 Saturation ABG Base Excess ABG Hemoglobin Oxyhemoglobin Potassium Chloride Carbon Dioxide BUN Creatinine 1.7 H Glucose NT-Pro-B Natriuret Pep Total Protein Albumin Allied health notes reviewed: nursing
[2022-02-03] MEDS: traMADol 50 MG TAB PO PRN (14:05)
[2022-02-03] MEDS: MORPHINE 2 MG/1 ML INJ IV PRN (17:46)
[2022-02-04] MEDS: FUROSEMIDE 40 MG TAB PO SCH ×2 (05:57→19:57)
[2022-02-04] MEDS: IPRATROPIUM/ALBUTEROL SULFATE 3 ML AMPUL.NEB IH SCH ×3 (07:19→19:30)
[2022-02-04] MEDS: hydrALAZINE 100 MG TAB PO SCH ×3 (09:22→22:24)
[2022-02-04] MEDS: AMIODARONE 200 MG TAB PO SCH (11:22)
[2022-02-04] MEDS: ASPIRIN 81 MG TAB CHEW PO SCH (11:22)
[2022-02-04] MEDS: predniSONE 20 MG TAB PO SCH (11:23)
[2022-02-04] MEDS: PANTOPRAZOLE 40 MG TAB PO SCH (11:23)
[2022-02-04] MEDS: ASCORBIC ACID 500 MG TAB PO SCH ×2 (11:23→22:24)
[2022-02-04] MEDS: APIXABAN 5 MG TAB PO SCH ×2 (11:24→22:24)
[2022-02-04] MEDS: ZINC SULFATE 220 MG CAP PO SCH ×2 (11:24→22:24)
[2022-02-04] MEDS: GABAPENTIN 300 MG CAP PO SCH ×2 (11:24→22:24)
[2022-02-04] MEDS: atenoloL 25 MG TAB PO SCH (11:25)
[2022-02-04] MEDS: amLODIPine 10 MG TAB PO SCH (11:25)
--- NOTE | 2022-02-04 11:44 | Progress Note ---
Assessment and Plan Assessment and plan: 64-year-old female with morbid obesity-current BMI of 70.7 and weighing about 400 pounds on home oxygen up to 4 L nasal cannula comes in for shortness of breath chest pain, headache and diarrhea. Patient states that she has been short of breath for last couple years and her oxygen levels usually run around 85-90. She has been able to walk to the restroom and ADLs till 1 month ago. Now she is nearly bedridden. Uses bedside commode. No fever or chills. Patient is very hypoxic in the emergency room with oxygen at low 80s. Patient is supposed to be on CPAP at home for obstructive sleep apnea but does not use because of inconvenience. Assessment and Plan: #Acute respiratory failure with hypoxia Currently on supplemental oxygen 4 L/min Etiology secondary to pulmonary hypertension, severe cord pulmonale and OHS/LUZ MARINA - Continue afterload reduction and diuresis Pulmonary following #Severe pulmonary hypertension #Severe cor pulmonale with dilated right heart chamber #Moderate to severe tricuspid regurgitation #Compensated diastolic heart failure -Elevated BNP on admission - CXR findings consistent with pulmonary edema from congestive heart failure -ECHO revealed left ventricular systolic function normal with concentric left ventricular hypertrophy and EF of 55%. Right ventricle is moderate to severely dilated. -Moderate to severe pulmonary hypertension -daily weights -I/O's -Lasix IV BID -Cardiology following #Obesity hypoventilation syndrome Elevated BMI, recommend BiPAP nightly #Paroxysmal atrial fibrillation -Continue home diltiazem and Eliquis #Essential hypertension -Amlodipine, atenolol, Lasix Added hydralazine 100 mg p.o. 3 times daily #Hyperkalemia 5.5, administered IV calcium gluconate on admission Suspect this is Aldactone related, hold Aldactone for that at this time Trend on serial BMP #Acute kidney injury due to vasomotor nephropathy - Admission Cr: 1.6, Baseline Cr: 1.21.6 - etiology: Possibly medication related - avoid nephrotoxic agents - monitor I/O's - renal adjust medications - daily renal profile #Morbid Obesity - BMI 70.7 - Counseled patient on the importance of weight loss, incorporating exercise, and dietary changes (lean meats, fresh fruits and vegetables, and water intake). Patient expresses understanding. Hospital Course: 01/29: elevated BP this Am. restarted home medications, added hydralazine for BP optimization. Continue diuresis with lasix 40 IV BID. Patient requested to be DNR/AND. Paper work signed and status updated in chart. Follow kidney fx on serial bmp. Can likely be downgraded to floor tomorrow. Patient is bedbound due to morbid obesity, family having trouble supporting her at home. CM/SW consulted for assistance. 01/31: Patient still requiring 5 L O2 to maintain saturations greater than 92%. We will obtain physical therapy evaluation to assess disposition. 02/01: Patient with 4 L O2 and saturations greater than 92%. [facility] rehab accepted the patient. 02/02: Awaiting insurance authorization for penitentiary placement. Respiratory status is stable and at baseline. Physical therapy recommends RICHIE we will transition to LTC/PALOMO with daily assistance 02/03: Awaiting penitentiary placement. Hold BP meds for now. Insurance company denies placement and reports pt only qualifies for fdc care and will need to go home. However, pt states she cannot walk or care for herself. Daughter not able to help right now. History Interval history: No new issues overnight Hospitalist Physical - Constitutional Vitals: Temp Pulse Resp BP Pulse Ox 97.8 F 63 18 147/73 95 02/03/22 21:00 02/04/22 07:19 02/04/22 07:19 02/03/22 21:00 02/04/22 07:19 General appearance: Present: no acute distress, well-nourished - EENT Eyes: Present: PERRL, EOM intact ENT: hearing intact, clear oral mucosa, dentition normal - Neck Neck: Present: supple, normal ROM - Respiratory Respiratory effort: normal Respiratory: bilateral: CTA - Cardiovascular Rhythm: regular Heart Sounds: Present: S1 & S2. Absent: gallop, rub - Extremities Extremities: no ischemia, No edema, Full ROM - Abdominal General gastrointestinal: soft, non-tender, non-distended, normal bowel sounds - Integumentary Integumentary: Present: clear, warm, dry - Neurologic Neurologic: CNII-XII intact, moves all extremities HEART Score - HEART Score EKG: Normal Age: 45-65 Risk factors: > 3 risk factors or hx of atherosclerotic disease Troponin: Troponin T < 0.010 ng/mL (0.00-0.029) 01/29/22 15:59 Troponin: < normal limit - Critical Actions Critical Actions: 0-3 pts:0.9-1.7%risk of adverse cardiac event.Candidate for discharge Results - Labs CBC & Chem 7: 02/03/22 04:56 02/03/22 04:56 Labs: Laboratory Last Values WBC 8.5 K/mm3 (4.5-11.0) 02/03/22 04:56 RBC 4.17 M/mm3 (3.65-5.03) 02/03/22 04:56 Hgb 10.9 gm/dl (10.1-14.3) 02/03/22 04:56 Hct 36.4 % (30.3-42.9) 02/03/22 04:56 MCV 87 fl (79-97) 02/03/22 04:56 MCH 26 pg (28-32) L 02/03/22 04:56 MCHC 30 % (30-34) 02/03/22 04:56 RDW 18.8 % (13.2-15.2) H 02/03/22 04:56 Plt Count 239 K/mm3 (140-440) 02/03/22 04:56 Lymph % (Auto) 14.5 % (13.4-35.0) 01/28/22 12:43 Bonner % (Auto) 9.2 % (0.0-7.3) H 01/28/22 12:43 Eos % (Auto) 2.0 % (0.0-4.3) 01/28/22 12:43 Baso % (Auto) 0.5 % (0.0-1.8) 01/28/22 12:43 Lymph # (Auto) 1.0 K/mm3 (1.2-5.4) L 01/28/22 12:43 Bonner # (Auto) 0.6 K/mm3 (0.0-0.8) 01/28/22 12:43 Eos # (Auto) 0.1 K/mm3 (0.0-0.4) 01/28/22 12:43 Baso # (Auto) 0.0 K/mm3 (0.0-0.1) 01/28/22 12:43 Add Manual Diff Complete 01/29/22 04:35 Total Counted 100 01/29/22 04:35 Seg Neutrophils % Shirt Folder 01/29/22 04:35 Seg Neuts % (Manual) 97.0 % (40.0-70.0) H 01/29/22 04:35 Band Neutrophils % 0 % 01/29/22 04:35 Lymphocytes % (Manual) 2.0 % (13.4-35.0) L 01/29/22 04:35 Reactive Lymphs % (Man) 0 % 01/29/22 04:35 Monocytes % (Manual) 1.0 % (0.0-7.3) 01/29/22 04:35 Eosinophils % (Manual) 0 % (0.0-4.3) 01/29/22 04:35 Basophils % (Manual) 0 % (0.0-1.8) 01/29/22 04:35 Metamyelocytes % 0 % 01/29/22 04:35 Myelocytes % 0 % 01/29/22 04:35 Promyelocytes % 0 % 01/29/22 04:35 Blast Cells % 0 % 01/29/22 04:35 Nucleated RBC % Not Reportable 01/29/22 04:35 Seg Neutrophils # 4.8 K/mm3 (1.8-7.7) 01/28/22 12:43 Seg Neutrophils # Man 5.5 K/mm3 (1.8-7.7) 01/29/22 04:35 Band Neutrophils # 0.0 K/mm3 01/29/22 04:35 Lymphocytes # (Manual) 0.1 K/mm3 (1.2-5.4) L 01/29/22 04:35 Abs React Lymphs (Man) 0.0 K/mm3 01/29/22 04:35 Monocytes # (Manual) 0.1 K/mm3 (0.0-0.8) 01/29/22 04:35 Eosinophils # (Manual) 0.0 K/mm3 (0.0-0.4) 01/29/22 04:35 Basophils # (Manual) 0.0 K/mm3 (0.0-0.1) 01/29/22 04:35 Metamyelocytes # 0.0 K/mm3 01/29/22 04:35 Myelocytes # 0.0 K/mm3 01/29/22 04:35 Promyelocytes # 0.0 K/mm3 01/29/22 04:35 Blast Cells # 0.0 K/mm3 01/29/22 04:35 WBC Morphology Not Reportable 01/29/22 04:35 Hypersegmented Neuts Not Reportable 01/29/22 04:35 Hyposegmented Neuts Not Reportable 01/29/22 04:35 Hypogranular Neuts Not Reportable 01/29/22 04:35 Smudge Cells Not Reportable 01/29/22 04:35 Toxic Granulation Not Reportable 01/29/22 04:35 Toxic Vacuolation Not Reportable 01/29/22 04:35 Dohle Bodies Not Reportable 01/29/22 04:35 Pelger-Huet Anomaly Not Reportable 01/29/22 04:35 Papa Rods Not Reportable 01/29/22 04:35 Platelet Estimate Consistent w auto 01/29/22 04:35 Clumped Platelets Not Reportable 01/29/22 04:35 Plt Clumps, EDTA Not Reportable 01/29/22 04:35 Large Platelets Not Reportable 01/29/22 04:35 Giant Platelets Not Reportable 01/29/22 04:35 Platelet Satelliting Not Reportable 01/29/22 04:35 Plt Morphology Comment Not Reportable 01/29/22 04:35 RBC Morphology Not Reportable 01/29/22 04:35 Dimorphic RBCs Not Reportable 01/29/22 04:35 Polychromasia Not Reportable 01/29/22 04:35 Hypochromasia Not Reportable 01/29/22 04:35 Poikilocytosis Not Reportable 01/29/22 04:35 Anisocytosis 1+ 01/29/22 04:35 Microcytosis Not Reportable 01/29/22 04:35 Macrocytosis Not Reportable 01/29/22 04:35 Spherocytes Not Reportable 01/29/22 04:35 Pappenheimer Bodies Not Reportable 01/29/22 04:35 Sickle Cells Not Reportable 01/29/22 04:35 Target Cells Not Reportable 01/29/22 04:35 Tear Drop Cells Not Reportable 01/29/22 04:35 Ovalocytes Not Reportable 01/29/22 04:35 Helmet Cells Not Reportable 01/29/22 04:35 Landry-Ruthven Bodies Not Reportable 01/29/22 04:35 [place] Rings Not Reportable 01/29/22 04:35 [place] Cells Not Reportable 01/29/22 04:35 Bite Cells Not Reportable 01/29/22 04:35 Crenated Cell Not Reportable 01/29/22 04:35 Elliptocytes Not Reportable 01/29/22 04:35 Acanthocytes (Spur) Not Reportable 01/29/22 04:35 Rouleaux Not Reportable 01/29/22 04:35 Hemoglobin C Crystals Not Reportable 01/29/22 04:35 Schistocytes Not Reportable 01/29/22 04:35 Malaria parasites Not Reportable 01/29/22 04:35 Guillermo Bodies Not Reportable 01/29/22 04:35 Hem Pathologist Commnt No 01/29/22 04:35 PT 15.8 Sec. (12.2-14.9) H 01/28/22 18:56 INR 1.13 (0.87-1.13) 01/28/22 18:56 APTT 33.9 Sec. (24.2-36.6) 01/28/22 18:56 ABG pH 7.366 pH Units (7.350-7.450) 01/29/22 Unknown ABG pCO2 74.0 mm Hg 01/29/22 Unknown ABG pO2 58.0 mm Hg (80.0-90.0) L 01/29/22 Unknown ABG HCO3 41.5 mmol/L (20.0-26.0) H 01/29/22 Unknown ABG O2 Saturation 89.7 % (95.0-99.0) L 01/29/22 Unknown ABG O2 Content 11.1 (0.0-44) 01/29/22 Unknown ABG Base Excess 14.0 mmol/L (-2.0-3.0) H 01/29/22 Unknown ABG Hemoglobin 9.0 gm/dl (12.0-16.0) L 01/29/22 Unknown ABG Carboxyhemoglobin 2.5 % (0.0-5.0) 01/29/22 Unknown ABG Methemoglobin 0.4 % (0.0-1.5) 01/29/22 Unknown Oxyhemoglobin 87.1 % (95.0-99.0) L 01/29/22 Unknown FiO2 36 % 01/29/22 Unknown Sodium 141 mmol/L (137-145) 01/30/22 04:32 Potassium 4.8 mmol/L (3.6-5.0) 01/30/22 04:32 Chloride 96.4 mmol/L (98-107) L 01/30/22 04:32 Carbon Dioxide 38 mmol/L (22-30) H 01/30/22 04:32 Anion Gap 11 mmol/L 01/30/22 04:32 BUN 28 mg/dL (7-17) H 01/30/22 04:32 Creatinine 1.7 mg/dL (0.6-1.2) H 02/03/22 04:56 Estimated GFR 37 ml/min 02/03/22 04:56 BUN/Creatinine Ratio 16 % 01/30/22 04:32 Glucose 149 mg/dL (65-100) H 01/30/22 04:32 Calcium 10.0 mg/dL (8.4-10.2) 01/30/22 04:32 Total Bilirubin 0.60 mg/dL (0.1-1.2) 01/29/22 04:35 AST 14 units/L (5-40) 01/29/22 04:35 ALT 9 units/L (7-56) 01/29/22 04:35 Alkaline Phosphatase 117 units/L (35-129) 01/29/22 04:35 Troponin T < 0.010 ng/mL (0.00-0.029) 01/29/22 15:59 NT-Pro-B Natriuret Pep 1347 pg/mL (0-900) H 01/28/22 12:43 Total Protein 8.7 g/dL (6.3-8.2) H 01/29/22 04:35 Albumin 3.3 g/dL (3.9-5) L 01/29/22 04:35 Albumin/Globulin Ratio 0.6 % 01/29/22 04:35 Small/IV: Voiding Method Indwelling Catheter Active Medications - Current Medications Current Medications: Generic Name Dose Route Start Last Admin Trade Name Freq PRN Reason Stop Dose Admin Acetaminophen 650 mg 01/28/22 18:16 Acetaminophen 325 Mg Tab PO Q4H PRN Pain MILD(1-3)/Fever >100.5/CHAVEZ Albuterol 2.5 mg 01/28/22 18:12 02/03/22 06:00 Albuterol 2.5 Mg/3 Ml Nebu IH 2.5 mg Q4HRT PRN Administration Shortness Of Breath Albuterol/Ipratropium 1 ampul 01/30/22 08:00 02/04/22 07:19 Ipratropium/Albuterol Sulfate 3 Ml Ampul.Neb IH 1 ampul TIDRT MARCELLA Administration Amiodarone HCl 200 mg 01/28/22 19:00 02/03/22 10:16 Amiodarone 200 Mg Tab PO 200 mg QDAY MARCELLA Administration Amlodipine Besylate 10 mg 01/28/22 19:00 02/03/22 10:16 Amlodipine 10 Mg Tab PO 10 mg QDAY MARCELLA Administration Apixaban 5 mg 01/28/22 22:00 02/03/22 21:29 Apixaban 5 Mg Tab PO 5 mg Q12HR MARCELLA Administration Protocol Ascorbic Acid 500 mg 01/28/22 22:00 02/03/22 21:29 Ascorbic Acid 500 Mg Tab PO 500 mg BID MARCELLA Administration Aspirin 81 mg 01/28/22 19:00 02/03/22 10:15 Aspirin 81 Mg Tab Chew PO 81 mg QDAY MARCELLA Administration Atenolol 25 mg 01/28/22 19:00 02/03/22 10:17 Atenolol 25 Mg Tab PO 25 mg DAILY MARCELLA Administration Atorvastatin Calcium 40 mg 01/28/22 22:00 02/03/22 21:29 Atorvastatin 40 Mg Tab PO 40 mg QHS MARCELLA Administration Diltiazem HCl 120 mg 01/28/22 19:00 02/03/22 10:15 Diltiazem Cd 120 Mg Cap PO 120 mg QDAY MARCELLA Administration Diphenhydramine HCl 25 mg 01/28/22 20:57 01/29/22 21:14 Diphenhydramine 50 Mg/Ml Vial IV 25 mg Q4H PRN Administration Itching Furosemide 40 mg 02/01/22 18:00 02/04/22 05:57 Furosemide 40 Mg Tab PO 40 mg 0600,1800 MARCELLA Administration Gabapentin 300 mg 01/28/22 22:00 02/03/22 21:29 Gabapentin 300 Mg Cap PO 300 mg BID MARCELLA Administration Hydralazine HCl 100 mg 01/29/22 14:00 02/03/22 21:00 Hydralazine 100 Mg Tab PO 100 mg TID MARCELLA Administration Labetalol HCl 10 mg 01/29/22 14:00 01/29/22 17:38 Labetalol 20 Mg/4 Ml Inj IV 10 mg Q4HR PRN Administration sbp>160 Morphine Sulfate 2 mg 01/28/22 18:39 02/03/22 17:46 Morphine 2 Mg/1 Ml Inj IV 2 mg Q4H PRN Administration Pain, Moderate (4-6) Ondansetron HCl 4 mg 01/28/22 18:16 Ondansetron 4 Mg/2 Ml Inj IV Q8H PRN Nausea And Vomiting Pantoprazole Sodium 40 mg 01/30/22 13:00 02/03/22 10:16 Pantoprazole 40 Mg Tab PO 40 mg QDAC MARCELLA Administration Prednisone 20 mg 02/02/22 10:00 02/03/22 10:15 Prednisone 20 Mg Tab PO 20 mg QDAY MARCELLA Administration Sodium Chloride 10 ml 01/28/22 22:00 02/03/22 21:30 Sodium Chloride 0.9% 10 Ml Flush Syringe IV 10 ml BID MARCELLA Administration Sodium Chloride 10 ml 01/28/22 18:16 Sodium Chloride 0.9% 10 Ml Flush Syringe IV PRN PRN LINE FLUSH Tramadol HCl 50 mg 01/28/22 18:12 02/03/22 14:05 Tramadol 50 Mg Tab PO 50 mg Q6H PRN Administration Pain, Moderate (4-6) Zinc Sulfate 220 mg 01/28/22 22:00 02/03/22 21:29 Zinc Sulfate 220 Mg Cap PO 220 mg BID MARCELLA Administration Nutrition/Malnutrition Assess - Dietary Evaluation Nutrition/Malnutrition Findings: Nutrition Notes Start: 02/03/22 14:14 Freq: Status: Active Protocol: Document 02/03/22 14:14 MAURICE (Rec: 02/03/22 14:19 MAURICE [id number]) Nutrition Notes Need for Assessment generated from: LOS Initial or Follow up Brief Note Current Diagnosis Hypertension,Heart Failure Other Pertinent Diagnosis Acute resp failure, severe pulmonary HTN Current Diet [place] Height 5 ft 3 in Weight 181 kg [place] Body Weight (kg) 52.27 BMI 70.7 Weight Status Morbidly Obese Subjective/Other Information Pt screened for LOS. Spoke to pt via phone. She states that she had diarrhea and requested [place] diet. She is tolerating and wants to return to Cardiac diet now. Pt awaiting NH placement. Burn Absent Trauma Absent Minimum of two criteria No Is patient on ventilator? No Is Patient Ambulatory and/or Out of Bed No REE-([facility]-confined to bed) 2816.640 Kcal/Kg value to use for calculation 9 Approximate Energy Requirements Using 1629 kcal/Kg Calculation Used for Recommendations Kcal/kg Additional Notes Pro needs 0.8-1g/kg adjBW: 93- 117g/day Fluid needs 1ml/kcal Nutrition Intervention Follow-Up By: 02/10/22 Additional Comments F/U: intakes
--- NOTE | 2022-02-04 11:51 | Progress Note ---
Assessment and Plan Acute hypoxemic respiratory failure AE-CHF H/O COPD Morbid obesity LUZ MARINA/OHS Hypertension H/O P.E. on full anticoagulation - deploy NIV qhs with prn daytime use (28/02 rate of 14) - s/p empiric CAP therapy - continue diuretics while monitoring electrolytes - continue full anticoagulation re: VTE / A-fib - continue to wean supplemental oxygen for target O2 sat's > 90% acutely - continue aspiration precautions - continue bronchodilators (MANDI & LABA) with pulmonary hygiene per RT - taper off systemic steroiuds - add ICS re: COPD - avoid nephrotoxins, renally dose all medications - continue accuchecks with glycemic control per SSI for target blood glucose of <180 mg/dL; avoid hypoglycemia - prn analgesia per pain score - Maintenance of sleep-wake cycle, avoid delirium - G.I. & VTE prophylaxis - PT/OT/ROM exercises - continue mobility protocols for pressure ulcer prophylaxis - Monitor hemodynamics closely - continue other care per attending / other consultants - discharge planning ongoing concurrently ... re-evaluate Subjective Date of service: 02/04/22 Principal diagnosis: AHRF; AE-CHF; H/O COPD; Morbid obesity; H/O P.E.; LUZ MARINA/OHS Interval history: Patient is seen today for: Acute hypoxemic respiratory failure; AE-CHF; H/O COPD; Morbid obesity; H/O P.E.; LUZ MARINA/OHS Seen and examined at bedside; 24hour events reviewed; nursing and respiratory care staff consulted; no adverse overnight events reported to me; resting in bed; remains on supplemental oxygen at 5L flow; agrees to use BIPAP; states that nocturia is the reason for her poor compliance; denies acute chest pain or palpitations; denies N&V Objective Vital Signs - 12hr 02/04/22 07:19 Pulse Rate [ 63 Bilateral Throughout] Respiratory 18 Rate [Bilateral Throughout] O2 Sat by Pulse 95 Oximetry Constitutional: no acute distress, alert, other (Morbidly Obese.) Eyes: non-icteric ENT: oropharynx moist Neck: supple, no lymphadenopathy, no JVD Effort: mildly labored Ascultation: Bilateral: diminished breath sounds Percussion: Bilateral: not dull Cardiovascular: regular rate and rhythm Gastrointestinal: normoactive bowel sounds, soft, non-tender, non-distended (protuberant), other (Obese, Small catheter) Integumentary: normal, other (Stasis dermatitis) Extremities: no cyanosis, no edema, pulses normal Neurologic: normal mental status, non-focal exam, pupils equal and round, motor strength normal and Psychiatric: mood appropriate, affect normal CBC and BMP: 02/03/22 04:56 02/03/22 04:56 ABG, PT/INR, D-dimer: ABG ABG pH 7.366 pH Units (7.350-7.450) 01/29/22 Unknown ABG pCO2 74.0 mm Hg 01/29/22 Unknown ABG pO2 58.0 mm Hg (80.0-90.0) L 01/29/22 Unknown ABG O2 Saturation 89.7 % (95.0-99.0) L 01/29/22 Unknown PT/INR, D-dimer PT 15.8 Sec. (12.2-14.9) H 01/28/22 18:56 INR 1.13 (0.87-1.13) 01/28/22 18:56 Abnormal lab findings: Abnormal Labs 01/28/22 01/28/22 01/28/22 12:43 12:43 12:43 RBC 3.27 L Hgb 8.8 L Hct 28.8 L MCH 27 L MCHC RDW 18.0 H [place] % (Auto) 9.2 H Lymph # (Auto) 1.0 L Seg Neutrophils % 73.8 H Seg Neuts % (Manual) Lymphocytes % (Manual) Lymphocytes # (Manual) PT ABG pO2 ABG HCO3 ABG O2 Saturation ABG Base Excess ABG Hemoglobin Oxyhemoglobin Potassium 5.1 H Chloride Carbon Dioxide 38 H BUN 20 H Creatinine 1.6 H Glucose NT-Pro-B Natriuret Pep 1347 H Total Protein Albumin 3.2 L 01/28/22 01/28/22 01/28/22 18:56 18:56 18:56 RBC 3.32 L Hgb 8.8 L Hct 29.4 L MCH 27 L MCHC RDW 17.7 H [place] % (Auto) Lymph # (Auto) Seg Neutrophils % Seg Neuts % (Manual) Lymphocytes % (Manual) Lymphocytes # (Manual) PT 15.8 H ABG pO2 ABG HCO3 ABG O2 Saturation ABG Base Excess ABG Hemoglobin Oxyhemoglobin Potassium Chloride Carbon Dioxide BUN Creatinine 1.6 H Glucose NT-Pro-B Natriuret Pep Total Protein Albumin 01/29/22 01/29/22 01/29/22 04:35 04:35 Unknown RBC Hgb 9.7 L Hct MCH 26 L MCHC 29 L RDW 18.0 H [place] % (Auto) Lymph # (Auto) Seg Neutrophils % Seg Neuts % (Manual) 97.0 H Lymphocytes % (Manual) 2.0 L Lymphocytes # (Manual) 0.1 L PT ABG pO2 58.0 L ABG HCO3 41.5 H ABG O2 Saturation 89.7 L ABG Base Excess 14.0 H ABG Hemoglobin 9.0 L Oxyhemoglobin 87.1 L Potassium 5.6 H Chloride Carbon Dioxide 36 H BUN 21 H Creatinine 1.6 H Glucose 109 H NT-Pro-B Natriuret Pep Total Protein 8.7 H Albumin 3.3 L 01/30/22 01/30/22 01/31/22 04:32 04:32 05:30 RBC 3.64 L Hgb 9.5 L Hct MCH 26 L MCHC RDW 18.3 H [place] % (Auto) Lymph # (Auto) Seg Neutrophils % Seg Neuts % (Manual) Lymphocytes % (Manual) Lymphocytes # (Manual) PT ABG pO2 ABG HCO3 ABG O2 Saturation ABG Base Excess ABG Hemoglobin Oxyhemoglobin Potassium Chloride 96.4 L Carbon Dioxide 38 H BUN 28 H Creatinine 1.8 H 1.9 H Glucose 149 H NT-Pro-B Natriuret Pep Total Protein Albumin 02/01/22 02/03/22 02/03/22 05:13 04:56 04:56 RBC Hgb Hct MCH 27 L 26 L MCHC RDW 18.6 H 18.8 H [place] % (Auto) Lymph # (Auto) Seg Neutrophils % Seg Neuts % (Manual) Lymphocytes % (Manual) Lymphocytes # (Manual) PT ABG pO2 ABG HCO3 ABG O2 Saturation ABG Base Excess ABG Hemoglobin Oxyhemoglobin Potassium Chloride Carbon Dioxide BUN Creatinine 1.7 H Glucose NT-Pro-B Natriuret Pep Total Protein Albumin Allied health notes reviewed: nursing
[2022-02-04] MEDS: dilTIAZem CD 120 MG CAP PO SCH (12:25)
--- NOTE | 2022-02-04 12:31 | Progress Note ---
Assessment and Plan - Patient Problems (1) Shortness of breath Current Visit: Yes Status: Acute Plan to address problem: It will be recalled that she presented to the hospital with shortness of breath and hypoxemia. She has a history of morbid obesity, obstructive sleep apnea and chronic hypoventilation syndrome. She admits to poor compliance with her home CPAP, which she finds uncomfortable to wear. Echocardiogram on this presentation shows normal left ventricular systolic function with ejection fraction 55%. Major finding on the echo is severe cor pulmonale with dilated right heart chambers, moderate to severe tricuspid regurgitation, and moderate to severe pulmonary hypertension. We will defer to pulmonary for management of the patient's pulmonary disease which is etiology of her chronic dyspnea and hypoxemia. Subjective Date of service: 02/04/22 Principal diagnosis: AHRF; AE-CHF; H/O COPD; Morbid obesity; H/O P.E.; LUZ MARINA/OHS Interval history: Patient is comfortable, no acute distress. No new cardiac events reported. 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 Objective Vital Signs Temp Pulse Pulse Resp Resp BP Pulse Ox 02/04/22 07:19 63 18 95 02/03/22 22:00 20 98 02/03/22 21:24 66 97 02/03/22 21:00 97.8 F 66 147/73 02/03/22 20:55 92 02/03/22 20:00 66 20 02/03/22 14:45 64 20 - Physical Examination General: Other (Morbidly obese) HEENT: Positive: PERRL Neck: Positive: neck supple Cardiac: Positive: Reg Rate and Rhythm Lungs: Positive: Decreased Breath Sounds Neuro: Positive: Grossly Intact Abdomen: Positive: Soft Skin: Positive: Clear Extremities: Present: edema (Trace) - Imaging and Cardiology EKG: report reviewed (And his rhythm, heart rate of 72, probable left atrial enlargement) - Allied health notes Allied health notes reviewed: nursing
[2022-02-04] MEDS: traMADol 50 MG TAB PO PRN (13:24)
[2022-02-04] MEDS: MORPHINE 2 MG/1 ML INJ IV PRN (14:19)
[2022-02-05] MEDS: FUROSEMIDE 40 MG TAB PO SCH ×2 (05:57→17:13)
[2022-02-05] MEDS: traMADol 50 MG TAB PO PRN (06:07)
[2022-02-05] MEDS: MORPHINE 2 MG/1 ML INJ IV PRN ×2 (07:09→15:47)
[2022-02-05] MEDS: PANTOPRAZOLE 40 MG TAB PO SCH (07:09)
[2022-02-05] MEDS: hydrALAZINE 100 MG TAB PO SCH ×3 (07:09→21:51)
[2022-02-05] MEDS: IPRATROPIUM/ALBUTEROL SULFATE 3 ML AMPUL.NEB IH SCH ×3 (07:39→20:12)
--- NOTE | 2022-02-05 10:02 | Progress Note ---
Assessment and Plan Acute hypoxemic respiratory failure AE-CHF H/O COPD Morbid obesity LUZ MARINA/OHS Hypertension H/O P.E. on full anticoagulation - deploy NIV qhs with prn daytime use (28/02 rate of 14) - s/p empiric CAP therapy - continue diuretics while monitoring electrolytes - continue full anticoagulation re: VTE / A-fib - continue to wean supplemental oxygen for target O2 sat's > 90% acutely - continue aspiration precautions - continue bronchodilators (MANDI & LABA) with pulmonary hygiene per RT - taper off systemic steroiuds - add ICS re: COPD - avoid nephrotoxins, renally dose all medications - continue accuchecks with glycemic control per SSI for target blood glucose of <180 mg/dL; avoid hypoglycemia - prn analgesia per pain score - Maintenance of sleep-wake cycle, avoid delirium - G.I. & VTE prophylaxis - PT/OT/ROM exercises - continue mobility protocols for pressure ulcer prophylaxis - Monitor hemodynamics closely - continue other care per attending / other consultants - discharge planning ongoing concurrently ... re-evaluate Subjective Date of service: 02/05/22 Principal diagnosis: AHRF; AE-CHF; H/O COPD; Morbid obesity; H/O P.E.; LUZ MARINA/OHS Interval history: Patient is seen today for: Acute hypoxemic respiratory failure; AE-CHF; H/O COPD; Morbid obesity; H/O P.E.; LUZ MARINA/OHS Seen and examined at bedside; 24hour events reviewed; nursing and respiratory care staff consulted; no adverse overnight events reported to me; resting in bed; remains on supplemental oxygen at 4L flow; no new issues today otherwise Objective Vital Signs - 12hr 02/04/22 02/05/22 02/05/22 22:21 05:59 07:39 Temperature 98.3 F Pulse Rate 76 77 Pulse Rate [ 76 Bilateral Throughout] Respiratory 18 18 Rate Respiratory 18 Rate [Bilateral Throughout] Blood Pressure 161/82 Blood Pressure 153/73 [Left] O2 Sat by Pulse 95 97 Oximetry Constitutional: no acute distress, alert, other (Morbidly Obese.) Eyes: non-icteric ENT: oropharynx moist Neck: supple, no lymphadenopathy, no JVD Effort: mildly labored Ascultation: Bilateral: diminished breath sounds Percussion: Bilateral: not dull Cardiovascular: regular rate and rhythm Gastrointestinal: normoactive bowel sounds, soft, non-tender, non-distended (protuberant), other (Obese, Small catheter) Integumentary: normal, other (Stasis dermatitis) Extremities: no cyanosis, no edema, pulses normal Neurologic: normal mental status, non-focal exam, pupils equal and round, motor strength normal and Psychiatric: mood appropriate, affect normal CBC and BMP: 02/03/22 04:56 02/03/22 04:56 ABG, PT/INR, D-dimer: ABG ABG pH 7.366 pH Units (7.350-7.450) 01/29/22 Unknown ABG pCO2 74.0 mm Hg 01/29/22 Unknown ABG pO2 58.0 mm Hg (80.0-90.0) L 01/29/22 Unknown ABG O2 Saturation 89.7 % (95.0-99.0) L 01/29/22 Unknown PT/INR, D-dimer PT 15.8 Sec. (12.2-14.9) H 01/28/22 18:56 INR 1.13 (0.87-1.13) 01/28/22 18:56 Abnormal lab findings: Abnormal Labs 01/28/22 01/28/22 01/28/22 12:43 12:43 12:43 RBC 3.27 L Hgb 8.8 L Hct 28.8 L MCH 27 L MCHC RDW 18.0 H [place] % (Auto) 9.2 H Lymph # (Auto) 1.0 L Seg Neutrophils % 73.8 H Seg Neuts % (Manual) Lymphocytes % (Manual) Lymphocytes # (Manual) PT ABG pO2 ABG HCO3 ABG O2 Saturation ABG Base Excess ABG Hemoglobin Oxyhemoglobin Potassium 5.1 H Chloride Carbon Dioxide 38 H BUN 20 H Creatinine 1.6 H Glucose NT-Pro-B Natriuret Pep 1347 H Total Protein Albumin 3.2 L 01/28/22 01/28/22 01/28/22 18:56 18:56 18:56 RBC 3.32 L Hgb 8.8 L Hct 29.4 L MCH 27 L MCHC RDW 17.7 H [place] % (Auto) Lymph # (Auto) Seg Neutrophils % Seg Neuts % (Manual) Lymphocytes % (Manual) Lymphocytes # (Manual) PT 15.8 H ABG pO2 ABG HCO3 ABG O2 Saturation ABG Base Excess ABG Hemoglobin Oxyhemoglobin Potassium Chloride Carbon Dioxide BUN Creatinine 1.6 H Glucose NT-Pro-B Natriuret Pep Total Protein Albumin 01/29/22 01/29/22 01/29/22 04:35 04:35 Unknown RBC Hgb 9.7 L Hct MCH 26 L MCHC 29 L RDW 18.0 H [place] % (Auto) Lymph # (Auto) Seg Neutrophils % Seg Neuts % (Manual) 97.0 H Lymphocytes % (Manual) 2.0 L Lymphocytes # (Manual) 0.1 L PT ABG pO2 58.0 L ABG HCO3 41.5 H ABG O2 Saturation 89.7 L ABG Base Excess 14.0 H ABG Hemoglobin 9.0 L Oxyhemoglobin 87.1 L Potassium 5.6 H Chloride Carbon Dioxide 36 H BUN 21 H Creatinine 1.6 H Glucose 109 H NT-Pro-B Natriuret Pep Total Protein 8.7 H Albumin 3.3 L 01/30/22 01/30/22 01/31/22 04:32 04:32 05:30 RBC 3.64 L Hgb 9.5 L Hct MCH 26 L MCHC RDW 18.3 H [place] % (Auto) Lymph # (Auto) Seg Neutrophils % Seg Neuts % (Manual) Lymphocytes % (Manual) Lymphocytes # (Manual) PT ABG pO2 ABG HCO3 ABG O2 Saturation ABG Base Excess ABG Hemoglobin Oxyhemoglobin Potassium Chloride 96.4 L Carbon Dioxide 38 H BUN 28 H Creatinine 1.8 H 1.9 H Glucose 149 H NT-Pro-B Natriuret Pep Total Protein Albumin 02/01/22 02/03/22 02/03/22 05:13 04:56 04:56 RBC Hgb Hct MCH 27 L 26 L MCHC RDW 18.6 H 18.8 H [place] % (Auto) Lymph # (Auto) Seg Neutrophils % Seg Neuts % (Manual) Lymphocytes % (Manual) Lymphocytes # (Manual) PT ABG pO2 ABG HCO3 ABG O2 Saturation ABG Base Excess ABG Hemoglobin Oxyhemoglobin Potassium Chloride Carbon Dioxide BUN Creatinine 1.7 H Glucose NT-Pro-B Natriuret Pep Total Protein Albumin Allied health notes reviewed: nursing
[2022-02-05] MEDS: amLODIPine 10 MG TAB PO SCH (10:57)
[2022-02-05] MEDS: ZINC SULFATE 220 MG CAP PO SCH ×2 (10:57→21:51)
[2022-02-05] MEDS: ASPIRIN 81 MG TAB CHEW PO SCH (10:57)
[2022-02-05] MEDS: atenoloL 25 MG TAB PO SCH (10:57)
[2022-02-05] MEDS: GABAPENTIN 300 MG CAP PO SCH ×2 (10:58→21:51)
[2022-02-05] MEDS: APIXABAN 5 MG TAB PO SCH ×2 (10:58→21:51)
[2022-02-05] MEDS: predniSONE 20 MG TAB PO SCH (10:58)
[2022-02-05] MEDS: AMIODARONE 200 MG TAB PO SCH (10:58)
[2022-02-05] MEDS: ASCORBIC ACID 500 MG TAB PO SCH ×2 (10:58→21:51)
[2022-02-05] MEDS: dilTIAZem CD 120 MG CAP PO SCH (12:19)
--- NOTE | 2022-02-05 14:14 | Progress Note ---
Assessment and Plan - Patient Problems (1) Shortness of breath Current Visit: Yes Status: Acute Plan to address problem: It will be recalled that she presented to the hospital with shortness of breath and hypoxemia. She has a history of morbid obesity, obstructive sleep apnea and chronic hypoventilation syndrome. She admits to poor compliance with her home CPAP, which she finds uncomfortable to wear. Echocardiogram on this presentation shows normal left ventricular systolic function with ejection fraction 55%. Major finding on the echo is severe cor pulmonale with dilated right heart chambers, moderate to severe tricuspid regurgitation, and moderate to severe pulmonary hypertension. Subjective Date of service: 02/05/22 Principal diagnosis: AHRF; AE-CHF; H/O COPD; Morbid obesity; H/O P.E.; LUZ MARINA/OHS Interval history: Patient is comfortable, no acute distress. No new cardiac events reported. 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 Objective Vital Signs Temp Pulse Pulse Resp Resp BP BP 02/05/22 13:15 98.0 F 84 20 112/63 02/05/22 10:00 02/05/22 07:39 76 18 02/05/22 05:59 77 18 161/82 02/04/22 22:21 98.3 F 76 18 153/73 02/04/22 22:00 02/04/22 19:30 76 18 02/04/22 17:32 98.3 F 72 20 139/73 Pulse Ox 02/05/22 13:15 96 02/05/22 10:00 94 02/05/22 07:39 02/05/22 05:59 97 02/04/22 22:21 95 02/04/22 22:00 95 02/04/22 19:30 93 02/04/22 17:32 90 - Physical Examination General: Other (Morbidly obese) HEENT: Positive: PERRL Neck: Positive: neck supple Cardiac: Positive: Reg Rate and Rhythm Lungs: Positive: Decreased Breath Sounds Neuro: Positive: Grossly Intact Abdomen: Positive: Soft Skin: Positive: Clear Extremities: Present: edema (Trace) - Imaging and Cardiology EKG: report reviewed (And his rhythm, heart rate of 72, probable left atrial enlargement) - Allied health notes Allied health notes reviewed: nursing
--- NOTE | 2022-02-05 16:07 | Progress Note ---
Assessment and Plan Assessment and plan: 64-year-old female with morbid obesity-current BMI of 70.7 and weighing about 400 pounds on home oxygen up to 4 L nasal cannula comes in for shortness of breath chest pain, headache and diarrhea. Patient states that she has been short of breath for last couple years and her oxygen levels usually run around 85-90. She has been able to walk to the restroom and ADLs till 1 month ago. Now she is nearly bedridden. Uses bedside commode. No fever or chills. Patient is very hypoxic in the emergency room with oxygen at low 80s. Patient is supposed to be on CPAP at home for obstructive sleep apnea but does not use because of inconvenience. Assessment and Plan: #Acute respiratory failure with hypoxia Currently on supplemental oxygen 4 L/min Etiology secondary to pulmonary hypertension, severe cord pulmonale and OHS/LUZ MARINA - Continue afterload reduction and diuresis Pulmonary following #Severe pulmonary hypertension #Severe cor pulmonale with dilated right heart chamber #Moderate to severe tricuspid regurgitation #Compensated diastolic heart failure -Elevated BNP on admission - CXR findings consistent with pulmonary edema from congestive heart failure -ECHO revealed left ventricular systolic function normal with concentric left ventricular hypertrophy and EF of 55%. Right ventricle is moderate to severely dilated. -Moderate to severe pulmonary hypertension -daily weights -I/O's -Lasix IV BID -Cardiology following #Obesity hypoventilation syndrome Elevated BMI, recommend BiPAP nightly #Paroxysmal atrial fibrillation -Continue home diltiazem and Eliquis #Essential hypertension -Amlodipine, atenolol, Lasix Added hydralazine 100 mg p.o. 3 times daily #Hyperkalemia 5.5, administered IV calcium gluconate on admission Suspect this is Aldactone related, hold Aldactone for that at this time Trend on serial BMP #Acute kidney injury due to vasomotor nephropathy - Admission Cr: 1.6, Baseline Cr: 1.21.6 - etiology: Possibly medication related - avoid nephrotoxic agents - monitor I/O's - renal adjust medications - daily renal profile #Morbid Obesity - BMI 70.7 - Counseled patient on the importance of weight loss, incorporating exercise, and dietary changes (lean meats, fresh fruits and vegetables, and water intake). Patient expresses understanding. Hospital Course: 01/29: elevated BP this Am. restarted home medications, added hydralazine for BP optimization. Continue diuresis with lasix 40 IV BID. Patient requested to be DNR/AND. Paper work signed and status updated in chart. Follow kidney fx on serial bmp. Can likely be downgraded to floor tomorrow. Patient is bedbound due to morbid obesity, family having trouble supporting her at home. CM/SW consulted for assistance. 01/31: Patient still requiring 5 L O2 to maintain saturations greater than 92%. We will obtain physical therapy evaluation to assess disposition. 02/01: Patient with 4 L O2 and saturations greater than 92%. [facility] re[facility] accepted the patient. 02/02: Awaiting insurance authorization for senior care placement. Respiratory status is stable and at baseline. Physical therapy recommends RICHIE we will transition to LTC/PALOMO with daily assistance 02/03: Awaiting senior care placement. Hold BP meds for now. Insurance company denies placement and reports pt only qualifies for care home care and will need to go home. However, pt states she cannot walk or care for herself. Daughter not able to help right now. 02/04: Insurance company denied placement and reports pt only qualifies for care home care and will need to go home. However, pt states she cannot walk or care for herself. Daughter not able to help right now. 02/05: Insurance company denied placement and reports pt only qualifies for care home care and will need to go home. However, pt states she cannot walk or care for herself. CM reports agreement with discharge plan of home on Sunday but now pt states daughter is unable to help her at home. CM discussion for disposition tomorrow. History Interval history: No new issues overnight Hospitalist Physical - Constitutional Vitals: Temp Pulse Resp BP Pulse Ox 98.0 F 74 18 112/63 96 02/05/22 13:15 02/05/22 13:33 02/05/22 13:33 02/05/22 13:15 02/05/22 13:15 General appearance: Present: no acute distress, well-nourished - EENT Eyes: Present: PERRL, EOM intact ENT: hearing intact, clear oral mucosa, dentition normal - Neck Neck: Present: supple, normal ROM - Respiratory Respiratory effort: normal Respiratory: bilateral: CTA - Cardiovascular Rhythm: regular Heart Sounds: Present: S1 & S2. Absent: gallop, rub - Extremities Extremities: no ischemia, No edema, Full ROM - Abdominal General gastrointestinal: soft, non-tender, non-distended, normal bowel sounds - Integumentary Integumentary: Present: clear, warm, dry - Neurologic Neurologic: CNII-XII intact, moves all extremities HEART Score - HEART Score EKG: Normal Age: 45-65 Risk factors: > 3 risk factors or hx of atherosclerotic disease Troponin: Troponin T < 0.010 ng/mL (0.00-0.029) 01/29/22 15:59 Troponin: < normal limit - Critical Actions Critical Actions: 0-3 pts:0.9-1.7%risk of adverse cardiac event.Candidate for discharge Results - Labs CBC & Chem 7: 02/03/22 04:56 02/03/22 04:56 Labs: Laboratory Last Values WBC 8.5 K/mm3 (4.5-11.0) 02/03/22 04:56 RBC 4.17 M/mm3 (3.65-5.03) 02/03/22 04:56 Hgb 10.9 gm/dl (10.1-14.3) 02/03/22 04:56 Hct 36.4 % (30.3-42.9) 02/03/22 04:56 MCV 87 fl (79-97) 02/03/22 04:56 MCH 26 pg (28-32) L 02/03/22 04:56 MCHC 30 % (30-34) 02/03/22 04:56 RDW 18.8 % (13.2-15.2) H 02/03/22 04:56 Plt Count 239 K/mm3 (140-440) 02/03/22 04:56 Lymph % (Auto) 14.5 % (13.4-35.0) 01/28/22 12:43 [place] % (Auto) 9.2 % (0.0-7.3) H 01/28/22 12:43 Eos % (Auto) 2.0 % (0.0-4.3) 01/28/22 12:43 Baso % (Auto) 0.5 % (0.0-1.8) 01/28/22 12:43 Lymph # (Auto) 1.0 K/mm3 (1.2-5.4) L 01/28/22 12:43 [place] # (Auto) 0.6 K/mm3 (0.0-0.8) 01/28/22 12:43 Eos # (Auto) 0.1 K/mm3 (0.0-0.4) 01/28/22 12:43 Baso # (Auto) 0.0 K/mm3 (0.0-0.1) 01/28/22 12:43 Add Manual Diff Complete 01/29/22 04:35 Total Counted 100 01/29/22 04:35 Seg Neutrophils % Advertising Display Rotator 01/29/22 04:35 Seg Neuts % (Manual) 97.0 % (40.0-70.0) H 01/29/22 04:35 Band Neutrophils % 0 % 01/29/22 04:35 Lymphocytes % (Manual) 2.0 % (13.4-35.0) L 01/29/22 04:35 Reactive Lymphs % (Man) 0 % 01/29/22 04:35 Monocytes % (Manual) 1.0 % (0.0-7.3) 01/29/22 04:35 Eosinophils % (Manual) 0 % (0.0-4.3) 01/29/22 04:35 Basophils % (Manual) 0 % (0.0-1.8) 01/29/22 04:35 Metamyelocytes % 0 % 01/29/22 04:35 Myelocytes % 0 % 01/29/22 04:35 Promyelocytes % 0 % 01/29/22 04:35 Blast Cells % 0 % 01/29/22 04:35 Nucleated RBC % Not Reportable 01/29/22 04:35 Seg Neutrophils # 4.8 K/mm3 (1.8-7.7) 01/28/22 12:43 Seg Neutrophils # Man 5.5 K/mm3 (1.8-7.7) 01/29/22 04:35 Band Neutrophils # 0.0 K/mm3 01/29/22 04:35 Lymphocytes # (Manual) 0.1 K/mm3 (1.2-5.4) L 01/29/22 04:35 Abs React Lymphs (Man) 0.0 K/mm3 01/29/22 04:35 Monocytes # (Manual) 0.1 K/mm3 (0.0-0.8) 01/29/22 04:35 Eosinophils # (Manual) 0.0 K/mm3 (0.0-0.4) 01/29/22 04:35 Basophils # (Manual) 0.0 K/mm3 (0.0-0.1) 01/29/22 04:35 Metamyelocytes # 0.0 K/mm3 01/29/22 04:35 Myelocytes # 0.0 K/mm3 01/29/22 04:35 Promyelocytes # 0.0 K/mm3 01/29/22 04:35 Blast Cells # 0.0 K/mm3 01/29/22 04:35 WBC Morphology Not Reportable 01/29/22 04:35 Hypersegmented Neuts Not Reportable 01/29/22 04:35 Hyposegmented Neuts Not Reportable 01/29/22 04:35 Hypogranular Neuts Not Reportable 01/29/22 04:35 Smudge Cells Not Reportable 01/29/22 04:35 Toxic Granulation Not Reportable 01/29/22 04:35 Toxic Vacuolation Not Reportable 01/29/22 04:35 Dohle Bodies Not Reportable 01/29/22 04:35 Pelger-Huet Anomaly Not Reportable 01/29/22 04:35 Papa Rods Not Reportable 01/29/22 04:35 Platelet Estimate Consistent w auto 01/29/22 04:35 Clumped Platelets Not Reportable 01/29/22 04:35 Plt Clumps, EDTA Not Reportable 01/29/22 04:35 Large Platelets Not Reportable 01/29/22 04:35 Giant Platelets Not Reportable 01/29/22 04:35 Platelet Satelliting Not Reportable 01/29/22 04:35 Plt Morphology Comment Not Reportable 01/29/22 04:35 RBC Morphology Not Reportable 01/29/22 04:35 Dimorphic RBCs Not Reportable 01/29/22 04:35 Polychromasia Not Reportable 01/29/22 04:35 Hypochromasia Not Reportable 01/29/22 04:35 Poikilocytosis Not Reportable 01/29/22 04:35 Anisocytosis 1+ 01/29/22 04:35 Microcytosis Not Reportable 01/29/22 04:35 Macrocytosis Not Reportable 01/29/22 04:35 Spherocytes Not Reportable 01/29/22 04:35 Pappenheimer Bodies Not Reportable 01/29/22 04:35 Sickle Cells Not Reportable 01/29/22 04:35 Target Cells Not Reportable 01/29/22 04:35 Tear Drop Cells Not Reportable 01/29/22 04:35 Ovalocytes Not Reportable 01/29/22 04:35 Helmet Cells Not Reportable 01/29/22 04:35 Landry-Brandon Bodies Not Reportable 01/29/22 04:35 [place] Rings Not Reportable 01/29/22 04:35 [place] Cells Not Reportable 01/29/22 04:35 Bite Cells Not Reportable 01/29/22 04:35 Crenated Cell Not Reportable 01/29/22 04:35 Elliptocytes Not Reportable 01/29/22 04:35 Acanthocytes (Spur) Not Reportable 01/29/22 04:35 Rouleaux Not Reportable 01/29/22 04:35 Hemoglobin C Crystals Not Reportable 01/29/22 04:35 Schistocytes Not Reportable 01/29/22 04:35 Malaria parasites Not Reportable 01/29/22 04:35 Guillermo Bodies Not Reportable 01/29/22 04:35 Hem Pathologist Commnt No 01/29/22 04:35 PT 15.8 Sec. (12.2-14.9) H 01/28/22 18:56 INR 1.13 (0.87-1.13) 01/28/22 18:56 APTT 33.9 Sec. (24.2-36.6) 01/28/22 18:56 ABG pH 7.366 pH Units (7.350-7.450) 01/29/22 Unknown ABG pCO2 74.0 mm Hg 01/29/22 Unknown ABG pO2 58.0 mm Hg (80.0-90.0) L 01/29/22 Unknown ABG HCO3 41.5 mmol/L (20.0-26.0) H 01/29/22 Unknown ABG O2 Saturation 89.7 % (95.0-99.0) L 01/29/22 Unknown ABG O2 Content 11.1 (0.0-44) 01/29/22 Unknown ABG Base Excess 14.0 mmol/L (-2.0-3.0) H 01/29/22 Unknown ABG Hemoglobin 9.0 gm/dl (12.0-16.0) L 01/29/22 Unknown ABG Carboxyhemoglobin 2.5 % (0.0-5.0) 01/29/22 Unknown ABG Methemoglobin 0.4 % (0.0-1.5) 01/29/22 Unknown Oxyhemoglobin 87.1 % (95.0-99.0) L 01/29/22 Unknown FiO2 36 % 01/29/22 Unknown Sodium 141 mmol/L (137-145) 01/30/22 04:32 Potassium 4.8 mmol/L (3.6-5.0) 01/30/22 04:32 Chloride 96.4 mmol/L (98-107) L 01/30/22 04:32 Carbon Dioxide 38 mmol/L (22-30) H 01/30/22 04:32 Anion Gap 11 mmol/L 01/30/22 04:32 BUN 28 mg/dL (7-17) H 01/30/22 04:32 Creatinine 1.7 mg/dL (0.6-1.2) H 02/03/22 04:56 Estimated GFR 37 ml/min 02/03/22 04:56 BUN/Creatinine Ratio 16 % 01/30/22 04:32 Glucose 149 mg/dL (65-100) H 01/30/22 04:32 Calcium 10.0 mg/dL (8.4-10.2) 01/30/22 04:32 Total Bilirubin 0.60 mg/dL (0.1-1.2) 01/29/22 04:35 AST 14 units/L (5-40) 01/29/22 04:35 ALT 9 units/L (7-56) 01/29/22 04:35 Alkaline Phosphatase 117 units/L (35-129) 01/29/22 04:35 Troponin T < 0.010 ng/mL (0.00-0.029) 01/29/22 15:59 NT-Pro-B Natriuret Pep 1347 pg/mL (0-900) H 01/28/22 12:43 Total Protein 8.7 g/dL (6.3-8.2) H 01/29/22 04:35 Albumin 3.3 g/dL (3.9-5) L 01/29/22 04:35 Albumin/Globulin Ratio 0.6 % 01/29/22 04:35 Small/IV: Voiding Method Indwelling Catheter Active Medications - Current Medications Current Medications: Generic Name Dose Route Start Last Admin Trade Name Freq PRN Reason Stop Dose Admin Acetaminophen 650 mg 01/28/22 18:16 Acetaminophen 325 Mg Tab PO Q4H PRN Pain MILD(1-3)/Fever >100.5/CHAVEZ Albuterol 2.5 mg 01/28/22 18:12 02/03/22 06:00 Albuterol 2.5 Mg/3 Ml Nebu IH 2.5 mg Q4HRT PRN Administration Shortness Of Breath Albuterol/Ipratropium 1 ampul 01/30/22 08:00 02/05/22 13:33 Ipratropium/Albuterol Sulfate 3 Ml Ampul.Neb IH 1 ampul TIDRT MARCELLA Administration Amiodarone HCl 200 mg 01/28/22 19:00 02/05/22 10:58 Amiodarone 200 Mg Tab PO 200 mg QDAY MARCELLA Administration Amlodipine Besylate 10 mg 01/28/22 19:00 02/05/22 10:57 Amlodipine 10 Mg Tab PO 10 mg QDAY MARCELLA Administration Apixaban 5 mg 01/28/22 22:00 02/05/22 10:58 Apixaban 5 Mg Tab PO 5 mg Q12HR MARCELLA Administration Protocol Ascorbic Acid 500 mg 01/28/22 22:00 02/05/22 10:58 Ascorbic Acid 500 Mg Tab PO 500 mg BID MARCELLA Administration Aspirin 81 mg 01/28/22 19:00 02/05/22 10:57 Aspirin 81 Mg Tab Chew PO 81 mg QDAY MARCELLA Administration Atenolol 25 mg 01/28/22 19:00 02/05/22 10:57 Atenolol 25 Mg Tab PO 25 mg DAILY MARCELLA Administration Atorvastatin Calcium 40 mg 01/28/22 22:00 02/04/22 22:25 Atorvastatin 40 Mg Tab PO 40 mg QHS MARCELLA Administration Diltiazem HCl 120 mg 01/28/22 19:00 02/05/22 12:19 Diltiazem Cd 120 Mg Cap PO 120 mg QDAY MARCELLA Administration Diphenhydramine HCl 25 mg 01/28/22 20:57 01/29/22 21:14 Diphenhydramine 50 Mg/Ml Vial IV 25 mg Q4H PRN Administration Itching Furosemide 40 mg 02/01/22 18:00 02/05/22 05:57 Furosemide 40 Mg Tab PO 40 mg 0600,1800 AMRCELLA Administration Gabapentin 300 mg 01/28/22 22:00 02/05/22 10:58 Gabapentin 300 Mg Cap PO 300 mg BID MARCELLA Administration Hydralazine HCl 100 mg 01/29/22 14:00 02/05/22 13:18 Hydralazine 100 Mg Tab PO Not Given TID MARCELLA Labetalol HCl 10 mg 01/29/22 14:00 01/29/22 17:38 Labetalol 20 Mg/4 Ml Inj IV 10 mg Q4HR PRN Administration sbp>160 Morphine Sulfate 2 mg 01/28/22 18:39 02/05/22 15:47 Morphine 2 Mg/1 Ml Inj IV 2 mg Q4H PRN Administration Pain, Moderate (4-6) Ondansetron HCl 4 mg 01/28/22 18:16 Ondansetron 4 Mg/2 Ml Inj IV Q8H PRN Nausea And Vomiting Pantoprazole Sodium 40 mg 01/30/22 13:00 02/05/22 07:09 Pantoprazole 40 Mg Tab PO 40 mg QDAC MARCELLA Administration Prednisone 20 mg 02/02/22 10:00 02/05/22 10:58 Prednisone 20 Mg Tab PO 20 mg QDAY MARCELLA Administration Sodium Chloride 10 ml 01/28/22 22:00 02/05/22 10:59 Sodium Chloride 0.9% 10 Ml Flush Syringe IV 10 ml BID MARCELLA Administration Sodium Chloride 10 ml 01/28/22 18:16 02/05/22 07:09 Sodium Chloride 0.9% 10 Ml Flush Syringe IV 10 ml PRN PRN Administration LINE FLUSH Tramadol HCl 50 mg 01/28/22 18:12 02/05/22 06:07 Tramadol 50 Mg Tab PO 50 mg Q6H PRN Administration Pain, Moderate (4-6) Zinc Sulfate 220 mg 01/28/22 22:00 02/05/22 10:57 Zinc Sulfate 220 Mg Cap PO 220 mg BID MARCELLA Administration Nutrition/Malnutrition Assess - Dietary Evaluation Nutrition/Malnutrition Findings: Nutrition Notes Start: 02/03/22 14:14 Freq: Status: Active Protocol: Document 02/03/22 14:14 MAURICE (Rec: 02/03/22 14:19 MAURICE [email or web address]) Nutrition Notes Need for Assessment generated from: LOS Initial or Follow up Brief Note Current Diagnosis Hypertension,Heart Failure Other Pertinent Diagnosis Acute resp failure, severe pulmonary HTN Current Diet [place] Height 5 ft 3 in Weight 181 kg [place] Body Weight (kg) 52.27 BMI 70.7 Weight Status Morbidly Obese Subjective/Other Information Pt screened for LOS. Spoke to pt via phone. She states that she had diarrhea and requested [place] diet. She is tolerating and wants to return to Cardiac diet now. Pt awaiting NH placement. Burn Absent Trauma Absent Minimum of two criteria No Is patient on ventilator? No Is Patient Ambulatory and/or Out of Bed No REE-([place]-St. Jeor-confined to bed) 2816.640 Kcal/Kg value to use for calculation 9 Approximate Energy Requirements Using 1629 kcal/Kg Calculation Used for Recommendations Kcal/kg Additional Notes Pro needs 0.8-1g/kg adjBW: 93- 117g/day Fluid needs 1ml/kcal Nutrition Intervention Follow-Up By: 02/10/22 Additional Comments F/U: intakes
[2022-02-06] MEDS: MORPHINE 2 MG/1 ML INJ IV PRN ×2 (01:06→23:37)
[2022-02-06] MEDS: FUROSEMIDE 40 MG TAB PO SCH ×2 (05:40→18:14)
[2022-02-06] MEDS: IPRATROPIUM/ALBUTEROL SULFATE 3 ML AMPUL.NEB IH SCH ×3 (08:06→20:29)
[2022-02-06] MEDS: ASCORBIC ACID 500 MG TAB PO SCH ×2 (09:39→22:20)
[2022-02-06] MEDS: GABAPENTIN 300 MG CAP PO SCH ×2 (09:39→22:20)
[2022-02-06] MEDS: PANTOPRAZOLE 40 MG TAB PO SCH (09:39)
[2022-02-06] MEDS: ZINC SULFATE 220 MG CAP PO SCH ×2 (09:39→22:21)
[2022-02-06] MEDS: atenoloL 25 MG TAB PO SCH (09:39)
[2022-02-06] MEDS: amLODIPine 10 MG TAB PO SCH (09:39)
[2022-02-06] MEDS: APIXABAN 5 MG TAB PO SCH ×2 (09:39→22:20)
[2022-02-06] MEDS: predniSONE 20 MG TAB PO SCH (09:39)
[2022-02-06] MEDS: hydrALAZINE 100 MG TAB PO SCH ×3 (09:39→21:19)
[2022-02-06] MEDS: ASPIRIN 81 MG TAB CHEW PO SCH (09:39)
[2022-02-06] MEDS: AMIODARONE 200 MG TAB PO SCH (09:39)
--- NOTE | 2022-02-06 10:43 | Progress Note ---
Assessment and Plan Acute hypoxemic respiratory failure AE-CHF H/O COPD Morbid obesity LUZ MARINA/OHS Hypertension H/O P.E. on full anticoagulation - continue NIV qhs with prn daytime use (28/02 rate of 14) - continue care as below otherwise; - s/p empiric CAP therapy - continue diuretics while monitoring electrolytes - continue full anticoagulation re: VTE / A-fib - continue to wean supplemental oxygen for target O2 sat's > 90% acutely - continue aspiration precautions - continue bronchodilators (MANDI & LABA) with pulmonary hygiene per RT - taper off systemic steroiuds - add ICS re: COPD - avoid nephrotoxins, renally dose all medications - continue accuchecks with glycemic control per SSI for target blood glucose of <180 mg/dL; avoid hypoglycemia - prn analgesia per pain score - Maintenance of sleep-wake cycle, avoid delirium - G.I. & VTE prophylaxis - PT/OT/ROM exercises - continue mobility protocols for pressure ulcer prophylaxis - Monitor hemodynamics closely - continue other care per attending / other consultants - discharge planning ongoing concurrently ... re-evaluate Subjective Date of service: 02/06/22 Principal diagnosis: AHRF; AE-CHF; H/O COPD; Morbid obesity; H/O P.E.; LUZ MARINA/OHS Interval history: Patient is seen today for: Acute hypoxemic respiratory failure; AE-CHF; H/O COPD ; Morbid obesity; H/O P.E.; LUZ MARINA/OHS Seen and examined at bedside; 24hour events reviewed; nursing and respiratory care staff consulted; no adverse overnight events reported to me; resting in bed; remains on supplemental oxygen at 4L flow now; tolerated BIPAP overnight Objective Vital Signs - 12hr 02/06/22 02/06/22 02/06/22 05:41 08:00 08:07 Temperature 99.6 F Pulse Rate 87 Pulse Rate [ 88 Bilateral Throughout] Respiratory 18 Rate Respiratory 17 Rate [Bilateral Throughout] Blood Pressure 144/63 [Right] O2 Sat by Pulse 95 92 Oximetry Constitutional: no acute distress, alert, other (Morbidly Obese.) Eyes: non-icteric ENT: oropharynx moist Neck: supple, no lymphadenopathy, no JVD Effort: mildly labored Ascultation: Bilateral: diminished breath sounds Percussion: Bilateral: not dull Cardiovascular: regular rate and rhythm Gastrointestinal: normoactive bowel sounds, soft, non-tender, non-distended (protuberant), other (Obese, Small catheter) Integumentary: normal, other (Stasis dermatitis) Extremities: no cyanosis, no edema, pulses normal Neurologic: normal mental status, non-focal exam, pupils equal and round, motor strength normal and Psychiatric: mood appropriate, affect normal CBC and BMP: 02/03/22 04:56 02/03/22 04:56 ABG, PT/INR, D-dimer: ABG ABG pH 7.366 pH Units (7.350-7.450) 01/29/22 Unknown ABG pCO2 74.0 mm Hg 01/29/22 Unknown ABG pO2 58.0 mm Hg (80.0-90.0) L 01/29/22 Unknown ABG O2 Saturation 89.7 % (95.0-99.0) L 01/29/22 Unknown PT/INR, D-dimer PT 15.8 Sec. (12.2-14.9) H 01/28/22 18:56 INR 1.13 (0.87-1.13) 01/28/22 18:56 Abnormal lab findings: Abnormal Labs 01/28/22 01/28/22 01/28/22 12:43 12:43 12:43 RBC 3.27 L Hgb 8.8 L Hct 28.8 L MCH 27 L MCHC RDW 18.0 H [place] % (Auto) 9.2 H Lymph # (Auto) 1.0 L Seg Neutrophils % 73.8 H Seg Neuts % (Manual) Lymphocytes % (Manual) Lymphocytes # (Manual) PT ABG pO2 ABG HCO3 ABG O2 Saturation ABG Base Excess ABG Hemoglobin Oxyhemoglobin Potassium 5.1 H Chloride Carbon Dioxide 38 H BUN 20 H Creatinine 1.6 H Glucose NT-Pro-B Natriuret Pep 1347 H Total Protein Albumin 3.2 L 01/28/22 01/28/22 01/28/22 18:56 18:56 18:56 RBC 3.32 L Hgb 8.8 L Hct 29.4 L MCH 27 L MCHC RDW 17.7 H [place] % (Auto) Lymph # (Auto) Seg Neutrophils % Seg Neuts % (Manual) Lymphocytes % (Manual) Lymphocytes # (Manual) PT 15.8 H ABG pO2 ABG HCO3 ABG O2 Saturation ABG Base Excess ABG Hemoglobin Oxyhemoglobin Potassium Chloride Carbon Dioxide BUN Creatinine 1.6 H Glucose NT-Pro-B Natriuret Pep Total Protein Albumin 01/29/22 01/29/22 01/29/22 04:35 04:35 Unknown RBC Hgb 9.7 L Hct MCH 26 L MCHC 29 L RDW 18.0 H [place] % (Auto) Lymph # (Auto) Seg Neutrophils % Seg Neuts % (Manual) 97.0 H Lymphocytes % (Manual) 2.0 L Lymphocytes # (Manual) 0.1 L PT ABG pO2 58.0 L ABG HCO3 41.5 H ABG O2 Saturation 89.7 L ABG Base Excess 14.0 H ABG Hemoglobin 9.0 L Oxyhemoglobin 87.1 L Potassium 5.6 H Chloride Carbon Dioxide 36 H BUN 21 H Creatinine 1.6 H Glucose 109 H NT-Pro-B Natriuret Pep Total Protein 8.7 H Albumin 3.3 L 01/30/22 01/30/22 01/31/22 04:32 04:32 05:30 RBC 3.64 L Hgb 9.5 L Hct MCH 26 L MCHC RDW 18.3 H [place] % (Auto) Lymph # (Auto) Seg Neutrophils % Seg Neuts % (Manual) Lymphocytes % (Manual) Lymphocytes # (Manual) PT ABG pO2 ABG HCO3 ABG O2 Saturation ABG Base Excess ABG Hemoglobin Oxyhemoglobin Potassium Chloride 96.4 L Carbon Dioxide 38 H BUN 28 H Creatinine 1.8 H 1.9 H Glucose 149 H NT-Pro-B Natriuret Pep Total Protein Albumin 02/01/22 02/03/22 02/03/22 05:13 04:56 04:56 RBC Hgb Hct MCH 27 L 26 L MCHC RDW 18.6 H 18.8 H [place] % (Auto) Lymph # (Auto) Seg Neutrophils % Seg Neuts % (Manual) Lymphocytes % (Manual) Lymphocytes # (Manual) PT ABG pO2 ABG HCO3 ABG O2 Saturation ABG Base Excess ABG Hemoglobin Oxyhemoglobin Potassium Chloride Carbon Dioxide BUN Creatinine 1.7 H Glucose NT-Pro-B Natriuret Pep Total Protein Albumin Allied health notes reviewed: nursing
--- NOTE | 2022-02-06 12:11 | Discharge Summary ---
Providers - Providers Date of Admission: 01/28/22 18:16 Date of discharge: 02/08/22 Attending physician: DEYVI LAROSE 01/28/22 18:39 Consult to Physician [CONS] Routine Comment: masood/ christos Consulting Provider: YAN TEMPLETON Physician Instructions: Reason For Exam: Acute respiratory failure, hypoventilation 01/28/22 18:52 Consult to Physician [CONS] Routine Comment: Consulting Provider: VALERIE VIDES Physician Instructions: Reason For Exam: chf 01/30/22 11:15 Physical Therapy Evaluation and Treat [CONS] Routine Comment: Reason For Exam: Help with mobility and self care 01/30/22 12:03 Occupational Therapy Evaluate and Treat [CONS] Routine Comment: Reason For Exam: Debility Primary care physician: ISABELL IRVING Hospitalization Condition: Stable Hospital course: 64-year-old female with morbid obesity-current BMI of 70.7 and weighing about 400 pounds on home oxygen up to 4 L nasal cannula comes in for shortness of breath chest pain, headache and diarrhea. Patient states that she has been short of breath for last couple years and her oxygen levels usually run around 85-90. She has been able to walk to the restroom and ADLs till 1 month ago. Now she is nearly bedridden. Uses bedside commode. No fever or chills. Patient is very hypoxic in the emergency room with oxygen at low 80s. Patient is supposed to be on CPAP at home for obstructive sleep apnea but does not use because of inconvenience. Patient admitted with diagnosis below along with hospital course per disease process #Acute respiratory failure with hypoxia Currently on supplemental oxygen 4 L/min Etiology secondary to pulmonary hypertension and OHS/LUZ MARINA -Continue afterload reduction and diuresis Pulmonary following #Severe pulmonary hypertension #Compensated diastolic heart failure -Elevated BNP on admission - CXR findings consistent with pulmonary edema from congestive heart failure Patient received diuresis with improvement of heart failure which is now resolved -ECHO revealed left ventricular systolic function normal with concentric left ventricular hypertrophy and EF of 55%. Right ventricle is moderate to severely dilated. -Moderate to severe pulmonary hypertension -daily weights -I/O's -Lasix IV BID changed to p.o. for discharge -Cardiology following #Obesity hypoventilation syndrome Elevated BMI, recommend BiPAP nightly #Paroxysmal atrial fibrillation -Continue home diltiazem and Eliquis #Essential hypertension -Amlodipine, atenolol, Lasix Added hydralazine 100 mg p.o. 3 times daily #Hyperkalemia 5.5, administered IV calcium gluconate on admission Suspect this is Aldactone related, hold Aldactone for that at this time Trend on serial BMP #Acute kidney injury due to vasomotor nephropathy - Admission Cr: 1.6, Baseline Cr: 1.21.6 - etiology: Possibly medication related - avoid nephrotoxic agents - monitor I/O's - renal adjust medications - daily renal profile #Morbid Obesity - BMI 70.7 - Counseled patient on the importance of weight loss, incorporating exercise, and dietary changes (lean meats, fresh fruits and vegetables, and water intake). Patient expresses understanding. Acute hypoxic respiratory failure, severe pulmonary hypertension, chronic diastolic heart failure, obesity hypoventilation syndrome, LUZ MARINA, paroxysmal atrial fibrillation, hypertension, hyperkalemia, acute kidney injury due to vasomotor nephropathy, morbid obesity Disposition: HOME HEALTH CARE SERVICE Final Discharge Diagnosis (Prints w/discharge instructions): Acute hypoxic respiratory failure,. severe pulmonary hypertension,. chronic diastolic heart failure,. obesity hypoventilation syndrome,. LUZ MARINA,. paroxysmal atrial fibrillation,. hypertension,. hyperkalemia,. acute kidney injury due to vasomotor nephropathy,. morbid obesity Time spent for discharge: 35 min Core Measure Documentation - Palliative Care Palliative Care/ Comfort Measures: Not Applicable - Core Measures Any of the following diagnoses?: none Exam - Constitutional Vitals: Temp Pulse Resp BP Pulse Ox 99.6 F 88 17 144/63 92 02/06/22 05:41 02/06/22 08:00 02/06/22 08:00 02/06/22 05:41 02/06/22 08:07 General appearance: Present: no acute distress, well-nourished, obese - EENT Eyes: Present: PERRL (Morbidly obese), EOM intact - Neck Neck: Present: supple, normal ROM - Respiratory Respiratory effort: normal Respiratory: bilateral: diminished, negative: rales, rhonchi, wheezing - Cardiovascular Rhythm: regular Heart Sounds: Present: S1 & S2 - Extremities Extremities: no ischemia, No edema - Abdominal General gastrointestinal: Present: soft, non-tender, non-distended, normal bowel sounds - Integumentary Integumentary: Present: clear, warm - Musculoskeletal Musculoskeletal: strength equal bilaterally, generalized weakness - Psychiatric Psychiatric: appropriate mood/affect, cooperative - Neurologic Neurologic: moves all extremities Plan Activity: advance as tolerated, fall precautions Diet: other (Cardiac diet as tolerated) Additional Instructions: If you have worsening symptoms contact MD or go to the nearest emergency room as needed. Advised dietary modification, exercise as tolerated and weight reduction as tolerated. Strongly advised to comply with medications, diet, follow-up visits as needed Follow up with: VALERIE VIDES MD [Staff Physician] - 7 Days ISABELL IRVING MD [Primary Care Provider] - 3-5 Days MIGUEL YOUNG MD [Staff Physician] - 14 Days Prescriptions: oxyCODONE /ACETAMINOPHEN [Percocet 5/325] 1 tab PO Q6HR PRN #12 tablet PRN Reason: Pain Pantoprazole [Protonix] 40 mg PO QDAY #30 tablet
--- NOTE | 2022-02-06 14:14 | Progress Note ---
Assessment and Plan - Patient Problems (1) Shortness of breath Current Visit: Yes Status: Acute Plan to address problem: It will be recalled that she presented to the hospital with shortness of breath and hypoxemia. She has a history of morbid obesity, obstructive sleep apnea and chronic hypoventilation syndrome. She admits to poor compliance with her home CPAP, which she finds uncomfortable to wear. Echocardiogram on this presentation shows normal left ventricular systolic function with ejection fraction 55%. Major finding on the echo is severe cor pulmonale with dilated right heart chambers, moderate to severe tricuspid regurgitation, and moderate to severe pulmonary hypertension. Subjective Date of service: 02/06/22 Principal diagnosis: AHRF; AE-CHF; H/O COPD; Morbid obesity; H/O P.E.; LUZ MARINA/OHS Interval history: Patient is comfortable, no acute distress. No new cardiac events reported. 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 Objective Vital Signs Temp Pulse Pulse Resp Resp BP BP 02/06/22 08:07 02/06/22 08:00 88 17 02/06/22 05:41 99.6 F 87 18 144/63 02/05/22 22:15 98.5 F 94 H 18 109/61 02/05/22 22:05 02/05/22 21:49 98.5 F 94 H 18 109/61 02/05/22 20:27 02/05/22 20:10 78 20 02/05/22 18:56 99.2 F 82 24 117/55 Pulse Ox 02/06/22 08:07 92 02/06/22 08:00 02/06/22 05:41 95 02/05/22 22:15 94 02/05/22 22:05 96 02/05/22 21:49 94 02/05/22 20:27 95 02/05/22 20:10 02/05/22 18:56 93 - Physical Examination General: Other (Morbidly obese) HEENT: Positive: PERRL Neck: Positive: neck supple Cardiac: Positive: Reg Rate and Rhythm Lungs: Positive: Decreased Breath Sounds Neuro: Positive: Grossly Intact Abdomen: Positive: Soft Skin: Positive: Clear Extremities: Present: edema (Trace) - Imaging and Cardiology EKG: report reviewed (And his rhythm, heart rate of 72, probable left atrial enlargement) - Allied health notes Allied health notes reviewed: nursing
[2022-02-06] MEDS: dilTIAZem CD 120 MG CAP PO SCH (18:15)
--- NOTE | 2022-02-06 19:11 | Progress Note ---
Assessment and Plan Assessment and plan: 64-year-old female with morbid obesity-current BMI of 70.7 and weighing about 400 pounds on home oxygen up to 4 L nasal cannula comes in for shortness of breath chest pain, headache and diarrhea. Patient states that she has been short of breath for last couple years and her oxygen levels usually run around 85-90. She has been able to walk to the restroom and ADLs till 1 month ago. Now she is nearly bedridden. Uses bedside commode. No fever or chills. Patient is very hypoxic in the emergency room with oxygen at low 80s. Patient is supposed to be on CPAP at home for obstructive sleep apnea but does not use because of inconvenience. Assessment and Plan: #Acute respiratory failure with hypoxia Currently on supplemental oxygen 4 L/min Etiology secondary to pulmonary hypertension, severe cord pulmonale and OHS/LUZ MARINA - Continue afterload reduction and diuresis Pulmonary following #Severe pulmonary hypertension #Severe cor pulmonale with dilated right heart chamber #Moderate to severe tricuspid regurgitation #Compensated diastolic heart failure -Elevated BNP on admission - CXR findings consistent with pulmonary edema from congestive heart failure -ECHO revealed left ventricular systolic function normal with concentric left ventricular hypertrophy and EF of 55%. Right ventricle is moderate to severely dilated. -Moderate to severe pulmonary hypertension -daily weights -I/O's -Lasix IV BID -Cardiology following #Obesity hypoventilation syndrome Elevated BMI, recommend BiPAP nightly #Paroxysmal atrial fibrillation -Continue home diltiazem and Eliquis #Essential hypertension -Amlodipine, atenolol, Lasix Added hydralazine 100 mg p.o. 3 times daily #Hyperkalemia 5.5, administered IV calcium gluconate on admission Suspect this is Aldactone related, hold Aldactone for that at this time Trend on serial BMP #Acute kidney injury due to vasomotor nephropathy - Admission Cr: 1.6, Baseline Cr: 1.21.6 - etiology: Possibly medication related - avoid nephrotoxic agents - monitor I/O's - renal adjust medications - daily renal profile #Morbid Obesity - BMI 70.7 - Counseled patient on the importance of weight loss, incorporating exercise, and dietary changes (lean meats, fresh fruits and vegetables, and water intake). Patient expresses understanding. Hospital Course: 01/29: elevated BP this Am. restarted home medications, added hydralazine for BP optimization. Continue diuresis with lasix 40 IV BID. Patient requested to be DNR/AND. Paper work signed and status updated in chart. Follow kidney fx on serial bmp. Can likely be downgraded to floor tomorrow. Patient is bedbound due to morbid obesity, family having trouble supporting her at home. CM/SW consulted for assistance. 01/31: Patient still requiring 5 L O2 to maintain saturations greater than 92%. We will obtain physical therapy evaluation to assess disposition. 02/01: Patient with 4 L O2 and saturations greater than 92%. [facility] rehab accepted the patient. 02/02: Awaiting insurance authorization for longterm placement. Respiratory status is stable and at baseline. Physical therapy recommends RICHIE we will transition to LTC/PALOMO with daily assistance 02/03: Awaiting longterm placement. Hold BP meds for now. Insurance company denies placement and reports pt only qualifies for skilled nursing care and will need to go home. However, pt states she cannot walk or care for herself. Daughter not able to help right now. 02/04: Insurance company denied placement and reports pt only qualifies for skilled nursing care and will need to go home. However, pt states she cannot walk or care for herself. Daughter not able to help right now. 02/05: Insurance company denied placement and reports pt only qualifies for skilled nursing care and will need to go home. However, pt states she cannot walk or care for herself. CM reports agreement with discharge plan of home on Sunday but now pt states daughter is unable to help her at home. CM discussion for disposition tomorrow. 02/06; discharge orders are given prescriptions are [place] [facility] planning per case management History Interval history: I have seen and examined the patient at the bedside Patient's chart and medications reviewed Case management informed me that the Patient's insurance denied placement to [facility] CM/SW recommend discharge home with home health and equipment, today. Patient was very unhappy when I mentioned the discharge planning Patient has no new complaints Hospitalist Physical - Constitutional Vitals: Temp Pulse Resp BP Pulse Ox 99.6 F 82 18 144/63 92 02/06/22 05:41 02/06/22 14:00 02/06/22 14:00 02/06/22 05:41 02/06/22 08:07 General appearance: Present: no acute distress, well-nourished, obese (Morbidly obese) - EENT Eyes: Present: PERRL, EOM intact - Neck Neck: Present: supple, normal ROM - Respiratory Respiratory effort: normal Respiratory: bilateral: diminished, negative: rales, rhonchi, wheezing - Cardiovascular Rhythm: regular Heart Sounds: Present: S1 & S2 - Extremities Extremities: no ischemia, No edema - Abdominal General gastrointestinal: soft, non-tender, non-distended, normal bowel sounds - Integumentary Integumentary: Present: clear, warm - Psychiatric Psychiatric: appropriate mood/affect, cooperative - Neurologic Neurologic: moves all extremities HEART Score - HEART Score EKG: Normal Age: 45-65 Risk factors: > 3 risk factors or hx of atherosclerotic disease Troponin: Troponin T < 0.010 ng/mL (0.00-0.029) 01/29/22 15:59 Troponin: < normal limit - Critical Actions Critical Actions: 0-3 pts:0.9-1.7%risk of adverse cardiac event.Candidate for discharge Results - Labs CBC & Chem 7: 02/03/22 04:56 02/03/22 04:56 Labs: Laboratory Last Values WBC 8.5 K/mm3 (4.5-11.0) 02/03/22 04:56 RBC 4.17 M/mm3 (3.65-5.03) 02/03/22 04:56 Hgb 10.9 gm/dl (10.1-14.3) 02/03/22 04:56 Hct 36.4 % (30.3-42.9) 02/03/22 04:56 MCV 87 fl (79-97) 02/03/22 04:56 MCH 26 pg (28-32) L 02/03/22 04:56 MCHC 30 % (30-34) 02/03/22 04:56 RDW 18.8 % (13.2-15.2) H 02/03/22 04:56 Plt Count 239 K/mm3 (140-440) 02/03/22 04:56 Lymph % (Auto) 14.5 % (13.4-35.0) 01/28/22 12:43 [place] % (Auto) 9.2 % (0.0-7.3) H 01/28/22 12:43 Eos % (Auto) 2.0 % (0.0-4.3) 01/28/22 12:43 Baso % (Auto) 0.5 % (0.0-1.8) 01/28/22 12:43 Lymph # (Auto) 1.0 K/mm3 (1.2-5.4) L 01/28/22 12:43 [place] # (Auto) 0.6 K/mm3 (0.0-0.8) 01/28/22 12:43 Eos # (Auto) 0.1 K/mm3 (0.0-0.4) 01/28/22 12:43 Baso # (Auto) 0.0 K/mm3 (0.0-0.1) 01/28/22 12:43 Add Manual Diff Complete 01/29/22 04:35 Total Counted 100 01/29/22 04:35 Seg Neutrophils % Shelter Advocate 01/29/22 04:35 Seg Neuts % (Manual) 97.0 % (40.0-70.0) H 01/29/22 04:35 Band Neutrophils % 0 % 01/29/22 04:35 Lymphocytes % (Manual) 2.0 % (13.4-35.0) L 01/29/22 04:35 Reactive Lymphs % (Man) 0 % 01/29/22 04:35 Monocytes % (Manual) 1.0 % (0.0-7.3) 01/29/22 04:35 Eosinophils % (Manual) 0 % (0.0-4.3) 01/29/22 04:35 Basophils % (Manual) 0 % (0.0-1.8) 01/29/22 04:35 Metamyelocytes % 0 % 01/29/22 04:35 Myelocytes % 0 % 01/29/22 04:35 Promyelocytes % 0 % 01/29/22 04:35 Blast Cells % 0 % 01/29/22 04:35 Nucleated RBC % Not Reportable 01/29/22 04:35 Seg Neutrophils # 4.8 K/mm3 (1.8-7.7) 01/28/22 12:43 Seg Neutrophils # Man 5.5 K/mm3 (1.8-7.7) 01/29/22 04:35 Band Neutrophils # 0.0 K/mm3 01/29/22 04:35 Lymphocytes # (Manual) 0.1 K/mm3 (1.2-5.4) L 01/29/22 04:35 Abs React Lymphs (Man) 0.0 K/mm3 01/29/22 04:35 Monocytes # (Manual) 0.1 K/mm3 (0.0-0.8) 01/29/22 04:35 Eosinophils # (Manual) 0.0 K/mm3 (0.0-0.4) 01/29/22 04:35 Basophils # (Manual) 0.0 K/mm3 (0.0-0.1) 01/29/22 04:35 Metamyelocytes # 0.0 K/mm3 01/29/22 04:35 Myelocytes # 0.0 K/mm3 01/29/22 04:35 Promyelocytes # 0.0 K/mm3 01/29/22 04:35 Blast Cells # 0.0 K/mm3 01/29/22 04:35 WBC Morphology Not Reportable 01/29/22 04:35 Hypersegmented Neuts Not Reportable 01/29/22 04:35 Hyposegmented Neuts Not Reportable 01/29/22 04:35 Hypogranular Neuts Not Reportable 01/29/22 04:35 Smudge Cells Not Reportable 01/29/22 04:35 Toxic Granulation Not Reportable 01/29/22 04:35 Toxic Vacuolation Not Reportable 01/29/22 04:35 Dohle Bodies Not Reportable 01/29/22 04:35 Pelger-Huet Anomaly Not Reportable 01/29/22 04:35 Papa Rods Not Reportable 01/29/22 04:35 Platelet Estimate Consistent w auto 01/29/22 04:35 Clumped Platelets Not Reportable 01/29/22 04:35 Plt Clumps, EDTA Not Reportable 01/29/22 04:35 Large Platelets Not Reportable 01/29/22 04:35 Giant Platelets Not Reportable 01/29/22 04:35 Platelet Satelliting Not Reportable 01/29/22 04:35 Plt Morphology Comment Not Reportable 01/29/22 04:35 RBC Morphology Not Reportable 01/29/22 04:35 Dimorphic RBCs Not Reportable 01/29/22 04:35 Polychromasia Not Reportable 01/29/22 04:35 Hypochromasia Not Reportable 01/29/22 04:35 Poikilocytosis Not Reportable 01/29/22 04:35 Anisocytosis 1+ 01/29/22 04:35 Microcytosis Not Reportable 01/29/22 04:35 Macrocytosis Not Reportable 01/29/22 04:35 Spherocytes Not Reportable 01/29/22 04:35 Pappenheimer Bodies Not Reportable 01/29/22 04:35 Sickle Cells Not Reportable 01/29/22 04:35 Target Cells Not Reportable 01/29/22 04:35 Tear Drop Cells Not Reportable 01/29/22 04:35 Ovalocytes Not Reportable 01/29/22 04:35 Helmet Cells Not Reportable 01/29/22 04:35 [place] Bodies Not Reportable 01/29/22 04:35 [place] Rings Not Reportable 01/29/22 04:35 [place] Cells Not Reportable 01/29/22 04:35 Bite Cells Not Reportable 01/29/22 04:35 Crenated Cell Not Reportable 01/29/22 04:35 Elliptocytes Not Reportable 01/29/22 04:35 Acanthocytes (Spur) Not Reportable 01/29/22 04:35 Rouleaux Not Reportable 01/29/22 04:35 Hemoglobin C Crystals Not Reportable 01/29/22 04:35 Schistocytes Not Reportable 01/29/22 04:35 Malaria parasites Not Reportable 01/29/22 04:35 Guillermo Bodies Not Reportable 01/29/22 04:35 Hem Pathologist Commnt No 01/29/22 04:35 PT 15.8 Sec. (12.2-14.9) H 01/28/22 18:56 INR 1.13 (0.87-1.13) 01/28/22 18:56 APTT 33.9 Sec. (24.2-36.6) 01/28/22 18:56 ABG pH 7.366 pH Units (7.350-7.450) 01/29/22 Unknown ABG pCO2 74.0 mm Hg 01/29/22 Unknown ABG pO2 58.0 mm Hg (80.0-90.0) L 01/29/22 Unknown ABG HCO3 41.5 mmol/L (20.0-26.0) H 01/29/22 Unknown ABG O2 Saturation 89.7 % (95.0-99.0) L 01/29/22 Unknown ABG O2 Content 11.1 (0.0-44) 01/29/22 Unknown ABG Base Excess 14.0 mmol/L (-2.0-3.0) H 01/29/22 Unknown ABG Hemoglobin 9.0 gm/dl (12.0-16.0) L 01/29/22 Unknown ABG Carboxyhemoglobin 2.5 % (0.0-5.0) 01/29/22 Unknown ABG Methemoglobin 0.4 % (0.0-1.5) 01/29/22 Unknown Oxyhemoglobin 87.1 % (95.0-99.0) L 01/29/22 Unknown FiO2 36 % 01/29/22 Unknown Sodium 141 mmol/L (137-145) 01/30/22 04:32 Potassium 4.8 mmol/L (3.6-5.0) 01/30/22 04:32 Chloride 96.4 mmol/L (98-107) L 01/30/22 04:32 Carbon Dioxide 38 mmol/L (22-30) H 01/30/22 04:32 Anion Gap 11 mmol/L 01/30/22 04:32 BUN 28 mg/dL (7-17) H 01/30/22 04:32 Creatinine 1.7 mg/dL (0.6-1.2) H 02/03/22 04:56 Estimated GFR 37 ml/min 02/03/22 04:56 BUN/Creatinine Ratio 16 % 01/30/22 04:32 Glucose 149 mg/dL (65-100) H 01/30/22 04:32 Calcium 10.0 mg/dL (8.4-10.2) 01/30/22 04:32 Total Bilirubin 0.60 mg/dL (0.1-1.2) 01/29/22 04:35 AST 14 units/L (5-40) 01/29/22 04:35 ALT 9 units/L (7-56) 01/29/22 04:35 Alkaline Phosphatase 117 units/L (35-129) 01/29/22 04:35 Troponin T < 0.010 ng/mL (0.00-0.029) 01/29/22 15:59 NT-Pro-B Natriuret Pep 1347 pg/mL (0-900) H 01/28/22 12:43 Total Protein 8.7 g/dL (6.3-8.2) H 01/29/22 04:35 Albumin 3.3 g/dL (3.9-5) L 01/29/22 04:35 Albumin/Globulin Ratio 0.6 % 01/29/22 04:35 Small/IV: Voiding Method Indwelling Catheter Active Medications - Current Medications Current Medications: Generic Name Dose Route Start Last Admin Trade Name Freq PRN Reason Stop Dose Admin Acetaminophen 650 mg 01/28/22 18:16 Acetaminophen 325 Mg Tab PO Q4H PRN Pain MILD(1-3)/Fever >100.5/CHAVEZ Albuterol 2.5 mg 01/28/22 18:12 02/03/22 06:00 Albuterol 2.5 Mg/3 Ml Nebu IH 2.5 mg Q4HRT PRN Administration Shortness Of Breath Albuterol/Ipratropium 1 ampul 01/30/22 08:00 02/06/22 14:49 Ipratropium/Albuterol Sulfate 3 Ml Ampul.Neb IH 1 ampul TIDRT MARCELLA Administration Amiodarone HCl 200 mg 01/28/22 19:00 02/06/22 09:39 Amiodarone 200 Mg Tab PO 200 mg QDAY MARCELLA Administration Amlodipine Besylate 10 mg 01/28/22 19:00 02/06/22 09:39 Amlodipine 10 Mg Tab PO 10 mg QDAY MARCELLA Administration Apixaban 5 mg 01/28/22 22:00 02/06/22 09:39 Apixaban 5 Mg Tab PO 5 mg Q12HR MARCELLA Administration Protocol Ascorbic Acid 500 mg 01/28/22 22:00 02/06/22 09:39 Ascorbic Acid 500 Mg Tab PO 500 mg BID MARCELLA Administration Aspirin 81 mg 01/28/22 19:00 02/06/22 09:39 Aspirin 81 Mg Tab Chew PO 81 mg QDAY MARCELLA Administration Atenolol 25 mg 01/28/22 19:00 02/06/22 09:39 Atenolol 25 Mg Tab PO 25 mg DAILY MARCELLA Administration Atorvastatin Calcium 40 mg 01/28/22 22:00 02/05/22 21:51 Atorvastatin 40 Mg Tab PO 40 mg QHS MARCELLA Administration Diltiazem HCl 120 mg 01/28/22 19:00 02/06/22 18:15 Diltiazem Cd 120 Mg Cap PO 120 mg QDAY MARCELLA Administration Diphenhydramine HCl 25 mg 01/28/22 20:57 01/29/22 21:14 Diphenhydramine 50 Mg/Ml Vial IV 25 mg Q4H PRN Administration Itching Furosemide 40 mg 02/01/22 18:00 02/06/22 18:14 Furosemide 40 Mg Tab PO 40 mg 0600,1800 MARCELLA Administration Gabapentin 300 mg 01/28/22 22:00 02/06/22 09:39 Gabapentin 300 Mg Cap PO 300 mg BID MARCELLA Administration Hydralazine HCl 100 mg 01/29/22 14:00 02/06/22 18:15 Hydralazine 100 Mg Tab PO 100 mg TID MARCELLA Administration Labetalol HCl 10 mg 01/29/22 14:00 01/29/22 17:38 Labetalol 20 Mg/4 Ml Inj IV 10 mg Q4HR PRN Administration sbp>160 Morphine Sulfate 2 mg 01/28/22 18:39 02/06/22 01:06 Morphine 2 Mg/1 Ml Inj IV 2 mg Q4H PRN Administration Pain, Moderate (4-6) Ondansetron HCl 4 mg 01/28/22 18:16 Ondansetron 4 Mg/2 Ml Inj IV Q8H PRN Nausea And Vomiting Pantoprazole Sodium 40 mg 01/30/22 13:00 02/06/22 09:39 Pantoprazole 40 Mg Tab PO 40 mg QDAC MARCELLA Administration Prednisone 20 mg 02/02/22 10:00 02/06/22 09:39 Prednisone 20 Mg Tab PO 20 mg QDAY MARCELLA Administration Sodium Chloride 10 ml 01/28/22 22:00 02/06/22 09:40 Sodium Chloride 0.9% 10 Ml Flush Syringe IV 10 ml BID MARCELLA Administration Sodium Chloride 10 ml 01/28/22 18:16 02/05/22 07:09 Sodium Chloride 0.9% 10 Ml Flush Syringe IV 10 ml PRN PRN Administration LINE FLUSH Tramadol HCl 50 mg 01/28/22 18:12 02/05/22 06:07 Tramadol 50 Mg Tab PO 50 mg Q6H PRN Administration Pain, Moderate (4-6) Zinc Sulfate 220 mg 01/28/22 22:00 02/06/22 09:39 Zinc Sulfate 220 Mg Cap PO 220 mg BID MARCELLA Administration Nutrition/Malnutrition Assess - Dietary Evaluation Nutrition/Malnutrition Findings: Nutrition Notes Start: 02/03/22 14:14 Freq: Status: Active Protocol: Document 02/03/22 14:14 MAURICE (Rec: 02/03/22 14:19 MAURICE [id number]) Nutrition Notes Need for Assessment generated from: LOS Initial or Follow up Brief Note Current Diagnosis Hypertension,Heart Failure Other Pertinent Diagnosis Acute resp failure, severe pulmonary HTN Current Diet [place] Height 5 ft 3 in Weight 181 kg [place] Body Weight (kg) 52.27 BMI 70.7 Weight Status Morbidly Obese Subjective/Other Information Pt screened for LOS. Spoke to pt via phone. She states that she had diarrhea and requested [place] diet. She is tolerating and wants to return to Cardiac diet now. Pt awaiting NH placement. Burn Absent Trauma Absent Minimum of two criteria No Is patient on ventilator? No Is Patient Ambulatory and/or Out of Bed No REE-([place]-confined to bed) 2816.640 Kcal/Kg value to use for calculation 9 Approximate Energy Requirements Using 1629 kcal/Kg Calculation Used for Recommendations Kcal/kg Additional Notes Pro needs 0.8-1g/kg adjBW: 93- 117g/day Fluid needs 1ml/kcal Nutrition Intervention Follow-Up By: 02/10/22 Additional Comments F/U: intakes
[2022-02-07] MEDS: FUROSEMIDE 40 MG TAB PO SCH ×2 (06:30→17:07)
[2022-02-07] MEDS: MORPHINE 2 MG/1 ML INJ IV PRN ×2 (06:57→18:31)
[2022-02-07] MEDS: IPRATROPIUM/ALBUTEROL SULFATE 3 ML AMPUL.NEB IH SCH ×3 (08:09→21:12)
[2022-02-07] MEDS: dilTIAZem CD 120 MG CAP PO SCH (09:12)
[2022-02-07] MEDS: PANTOPRAZOLE 40 MG TAB PO SCH (09:12)
[2022-02-07] MEDS: predniSONE 20 MG TAB PO SCH (09:12)
[2022-02-07] MEDS: atenoloL 25 MG TAB PO SCH (09:12)
[2022-02-07] MEDS: ASPIRIN 81 MG TAB CHEW PO SCH (09:12)
[2022-02-07] MEDS: AMIODARONE 200 MG TAB PO SCH (09:12)
[2022-02-07] MEDS: ZINC SULFATE 220 MG CAP PO SCH ×2 (09:12→22:38)
[2022-02-07] MEDS: ASCORBIC ACID 500 MG TAB PO SCH ×2 (09:12→22:38)
[2022-02-07] MEDS: APIXABAN 5 MG TAB PO SCH ×2 (09:12→22:38)
[2022-02-07] MEDS: hydrALAZINE 100 MG TAB PO SCH ×3 (09:12→21:38)
[2022-02-07] MEDS: GABAPENTIN 300 MG CAP PO SCH ×2 (09:12→22:38)
[2022-02-07] MEDS: amLODIPine 10 MG TAB PO SCH (09:18)
--- NOTE | 2022-02-07 10:43 | Progress Note ---
Assessment and Plan - Patient Problems (1) Shortness of breath Current Visit: Yes Status: Acute Plan to address problem: It will be recalled that she presented to the hospital with shortness of breath and hypoxemia. She has a history of morbid obesity, obstructive sleep apnea and chronic hypoventilation syndrome. She admits to poor compliance with her home CPAP, which she finds uncomfortable to wear. Echocardiogram on this presentation shows normal left ventricular systolic function with ejection fraction 55%. Major finding on the echo is severe cor pulmonale with dilated right heart chambers, moderate to severe tricuspid regurgitation, and moderate to severe pulmonary hypertension. Subjective Date of service: 02/07/22 Principal diagnosis: AHRF; AE-CHF; H/O COPD; Morbid obesity; H/O P.E.; LUZ MARINA/OHS Interval history: No new cardiac complaints, no new cardiac events reported. On phototypesetting equipment monitor, there is a stable sinus rhythm at 85. Objective Vital Signs Pulse Pulse Resp Resp BP Pulse Ox 02/07/22 08:11 95 02/07/22 08:00 78 19 02/07/22 06:27 82 20 144/75 96 02/06/22 22:00 97 02/06/22 20:47 82 20 95 02/06/22 20:46 84 20 111/71 95 02/06/22 20:32 89 02/06/22 20:31 88 20 02/06/22 14:00 82 18 - Physical Examination General: Other (Morbidly obese) HEENT: Positive: PERRL Neck: Positive: neck supple Cardiac: Positive: Reg Rate and Rhythm Lungs: Positive: Decreased Breath Sounds Neuro: Positive: Grossly Intact Abdomen: Positive: Soft Skin: Positive: Clear Extremities: Present: edema (Trace) - Imaging and Cardiology EKG: report reviewed (And his rhythm, heart rate of 72, probable left atrial enlargement) - Allied health notes Allied health notes reviewed: nursing
--- NOTE | 2022-02-07 11:11 | Progress Note ---
Assessment and Plan Acute hypoxemic respiratory failure AE-CHF H/O COPD Morbid obesity LUZ MARINA/OHS Hypertension H/O P.E. on full anticoagulation - continue NIV qhs with prn daytime use (28/02 rate of 14) - continue care as below otherwise; - s/p empiric CAP therapy - continue diuretics while monitoring electrolytes - continue full anticoagulation re: VTE / A-fib - continue to wean supplemental oxygen for target O2 sat's > 90% acutely - continue aspiration precautions - continue bronchodilators (MANDI & LABA) with pulmonary hygiene per RT - taper off systemic steroiuds - add ICS re: COPD - avoid nephrotoxins, renally dose all medications - continue accuchecks with glycemic control per SSI for target blood glucose of <180 mg/dL; avoid hypoglycemia - prn analgesia per pain score - Maintenance of sleep-wake cycle, avoid delirium - G.I. & VTE prophylaxis - PT/OT/ROM exercises - continue mobility protocols for pressure ulcer prophylaxis - Monitor hemodynamics closely - continue other care per attending / other consultants - discharge planning ongoing concurrently ... re-evaluate Subjective Date of service: 02/07/22 Principal diagnosis: AHRF; AE-CHF; H/O COPD; Morbid obesity; H/O P.E.; LUZ MARINA/OHS Interval history: Patient is seen today for: Acute hypoxemic respiratory failure; AE-CHF; H/O COPD ; Morbid obesity; H/O P.E.; LUZ MARINA/OHS Seen and examined at bedside; 24hour events reviewed; nursing and respiratory care staff consulted; no adverse overnight events reported to me; resting in bed; remains on supplemental oxygen at 4L flow now; Objective Vital Signs - 12hr 02/07/22 02/07/22 02/07/22 06:27 08:00 08:11 Pulse Rate 82 Pulse Rate [ 78 Bilateral Throughout] Respiratory 20 Rate Respiratory 19 Rate [Bilateral Throughout] Blood Pressure 144/75 O2 Sat by Pulse 96 95 Oximetry 02/07/22 10:00 Pulse Rate Pulse Rate [ Bilateral Throughout] Respiratory Rate Respiratory Rate [Bilateral Throughout] Blood Pressure O2 Sat by Pulse 97 Oximetry Constitutional: no acute distress, alert, other (Morbidly Obese.) Eyes: non-icteric ENT: oropharynx moist Neck: supple, no lymphadenopathy, no JVD Effort: mildly labored Ascultation: Bilateral: diminished breath sounds Percussion: Bilateral: not dull Cardiovascular: regular rate and rhythm Gastrointestinal: normoactive bowel sounds, soft, non-tender, non-distended (protuberant), other (Obese, Small catheter) Integumentary: normal, other (Stasis dermatitis) Extremities: no cyanosis, no edema, pulses normal Neurologic: normal mental status, non-focal exam, pupils equal and round, motor strength normal and Psychiatric: mood appropriate, affect normal CBC and BMP: 02/03/22 04:56 02/03/22 04:56 ABG, PT/INR, D-dimer: ABG ABG pH 7.366 pH Units (7.350-7.450) 01/29/22 Unknown ABG pCO2 74.0 mm Hg 01/29/22 Unknown ABG pO2 58.0 mm Hg (80.0-90.0) L 01/29/22 Unknown ABG O2 Saturation 89.7 % (95.0-99.0) L 01/29/22 Unknown PT/INR, D-dimer PT 15.8 Sec. (12.2-14.9) H 01/28/22 18:56 INR 1.13 (0.87-1.13) 01/28/22 18:56 Abnormal lab findings: Abnormal Labs 01/28/22 01/28/22 01/28/22 12:43 12:43 12:43 RBC 3.27 L Hgb 8.8 L Hct 28.8 L MCH 27 L MCHC RDW 18.0 H Mckinley % (Auto) 9.2 H Lymph # (Auto) 1.0 L Seg Neutrophils % 73.8 H Seg Neuts % (Manual) Lymphocytes % (Manual) Lymphocytes # (Manual) PT ABG pO2 ABG HCO3 ABG O2 Saturation ABG Base Excess ABG Hemoglobin Oxyhemoglobin Potassium 5.1 H Chloride Carbon Dioxide 38 H BUN 20 H Creatinine 1.6 H Glucose NT-Pro-B Natriuret Pep 1347 H Total Protein Albumin 3.2 L 01/28/22 01/28/22 01/28/22 18:56 18:56 18:56 RBC 3.32 L Hgb 8.8 L Hct 29.4 L MCH 27 L MCHC RDW 17.7 H Mckinley % (Auto) Lymph # (Auto) Seg Neutrophils % Seg Neuts % (Manual) Lymphocytes % (Manual) Lymphocytes # (Manual) PT 15.8 H ABG pO2 ABG HCO3 ABG O2 Saturation ABG Base Excess ABG Hemoglobin Oxyhemoglobin Potassium Chloride Carbon Dioxide BUN Creatinine 1.6 H Glucose NT-Pro-B Natriuret Pep Total Protein Albumin 01/29/22 01/29/22 01/29/22 04:35 04:35 Unknown RBC Hgb 9.7 L Hct MCH 26 L MCHC 29 L RDW 18.0 H Mckinley % (Auto) Lymph # (Auto) Seg Neutrophils % Seg Neuts % (Manual) 97.0 H Lymphocytes % (Manual) 2.0 L Lymphocytes # (Manual) 0.1 L PT ABG pO2 58.0 L ABG HCO3 41.5 H ABG O2 Saturation 89.7 L ABG Base Excess 14.0 H ABG Hemoglobin 9.0 L Oxyhemoglobin 87.1 L Potassium 5.6 H Chloride Carbon Dioxide 36 H BUN 21 H Creatinine 1.6 H Glucose 109 H NT-Pro-B Natriuret Pep Total Protein 8.7 H Albumin 3.3 L 01/30/22 01/30/22 01/31/22 04:32 04:32 05:30 RBC 3.64 L Hgb 9.5 L Hct MCH 26 L MCHC RDW 18.3 H Mckinley % (Auto) Lymph # (Auto) Seg Neutrophils % Seg Neuts % (Manual) Lymphocytes % (Manual) Lymphocytes # (Manual) PT ABG pO2 ABG HCO3 ABG O2 Saturation ABG Base Excess ABG Hemoglobin Oxyhemoglobin Potassium Chloride 96.4 L Carbon Dioxide 38 H BUN 28 H Creatinine 1.8 H 1.9 H Glucose 149 H NT-Pro-B Natriuret Pep Total Protein Albumin 02/01/22 02/03/22 02/03/22 05:13 04:56 04:56 RBC Hgb Hct MCH 27 L 26 L MCHC RDW 18.6 H 18.8 H Mckinley % (Auto) Lymph # (Auto) Seg Neutrophils % Seg Neuts % (Manual) Lymphocytes % (Manual) Lymphocytes # (Manual) PT ABG pO2 ABG HCO3 ABG O2 Saturation ABG Base Excess ABG Hemoglobin Oxyhemoglobin Potassium Chloride Carbon Dioxide BUN Creatinine 1.7 H Glucose NT-Pro-B Natriuret Pep Total Protein Albumin Allied health notes reviewed: nursing
--- NOTE | 2022-02-07 19:08 | Progress Note ---
Assessment and Plan Assessment and plan: 64-year-old female with morbid obesity-current BMI of 70.7 and weighing about 400 pounds on home oxygen up to 4 L nasal cannula comes in for shortness of breath chest pain, headache and diarrhea. Patient states that she has been short of breath for last couple years and her oxygen levels usually run around 85-90. She has been able to walk to the restroom and ADLs till 1 month ago. Now she is nearly bedridden. Uses bedside commode. No fever or chills. Patient is very hypoxic in the emergency room with oxygen at low 80s. Patient is supposed to be on CPAP at home for obstructive sleep apnea but does not use because of inconvenience. Assessment and Plan: #Acute respiratory failure with hypoxia Currently on supplemental oxygen 4 L/min Etiology secondary to pulmonary hypertension, severe cord pulmonale and OHS/LUZ MARINA - Continue afterload reduction and diuresis Pulmonary following #Severe pulmonary hypertension #Severe cor pulmonale with dilated right heart chamber #Moderate to severe tricuspid regurgitation #Compensated diastolic heart failure -Elevated BNP on admission - CXR findings consistent with pulmonary edema from congestive heart failure -ECHO revealed left ventricular systolic function normal with concentric left ventricular hypertrophy and EF of 55%. Right ventricle is moderate to severely dilated. -Moderate to severe pulmonary hypertension -daily weights -I/O's -Lasix IV BID -Cardiology following #Obesity hypoventilation syndrome Elevated BMI, recommend BiPAP nightly #Paroxysmal atrial fibrillation -Continue home diltiazem and Eliquis #Essential hypertension -Amlodipine, atenolol, Lasix Added hydralazine 100 mg p.o. 3 times daily #Hyperkalemia 5.5, administered IV calcium gluconate on admission Suspect this is Aldactone related, hold Aldactone for that at this time Trend on serial BMP #Acute kidney injury due to vasomotor nephropathy - Admission Cr: 1.6, Baseline Cr: 1.21.6 - etiology: Possibly medication related - avoid nephrotoxic agents - monitor I/O's - renal adjust medications - daily renal profile #Morbid Obesity - BMI 70.7 - Counseled patient on the importance of weight loss, incorporating exercise, and dietary changes (lean meats, fresh fruits and vegetables, and water intake). Patient expresses understanding. Hospital Course: 01/29: elevated BP this Am. restarted home medications, added hydralazine for BP optimization. Continue diuresis with lasix 40 IV BID. Patient requested to be DNR/AND. Paper work signed and status updated in chart. Follow kidney fx on serial bmp. Can likely be downgraded to floor tomorrow. Patient is bedbound due to morbid obesity, family having trouble supporting her at home. CM/SW consulted for assistance. 01/31: Patient still requiring 5 L O2 to maintain saturations greater than 92%. We will obtain physical therapy evaluation to assess disposition. 02/01: Patient with 4 L O2 and saturations greater than 92%. [facility] rehab accepted the patient. 02/02: Awaiting insurance authorization for senior living placement. Respiratory status is stable and at baseline. Physical therapy recommends RICHIE we will transition to LTC/PALOMO with daily assistance 02/03: Awaiting senior living placement. Hold BP meds for now. Insurance company denies placement and reports pt only qualifies for fpc care and will need to go home. However, pt states she cannot walk or care for herself. Daughter not able to help right now. 02/04: Insurance company denied placement and reports pt only qualifies for fpc care and will need to go home. However, pt states she cannot walk or care for herself. Daughter not able to help right now. 02/05: Insurance company denied placement and reports pt only qualifies for fpc care and will need to go home. However, pt states she cannot walk or care for herself. CM reports agreement with discharge plan of home on Sunday but now pt states daughter is unable to help her at home. CM discussion for disposition tomorrow. 02/06; discharge orders are given prescriptions are signed to CO home with home health, DC planning per case management 02/07; DC planning per case management, planning placement if cannot be done patient will be discharged home with equipment History Interval history: I have seen and examined the patient at the bedside Patient's chart and medications reviewed, No new events reported by the nursing Case management and social worker clinical team aggressively assisting with discharge planning Discharge to [facility] versus home with home health Patient's vital signs reviewed Hospitalist Physical - Constitutional Vitals: Temp Pulse Resp BP Pulse Ox 98 F 90 20 126/64 94 02/07/22 17:00 02/07/22 17:00 02/07/22 17:00 02/07/22 17:00 02/07/22 17:00 General appearance: Present: no acute distress, well-nourished, obese (Morbidly obese) - EENT Eyes: Present: PERRL, EOM intact - Neck Neck: Present: supple, normal ROM - Respiratory Respiratory effort: normal Respiratory: bilateral: diminished, rales, negative: rhonchi, wheezing - Cardiovascular Rhythm: regular Heart Sounds: Present: S1 & S2 - Extremities Extremities: no ischemia, No edema - Abdominal General gastrointestinal: soft, non-tender, non-distended, normal bowel sounds - Integumentary Integumentary: Present: clear, warm - Psychiatric Psychiatric: appropriate mood/affect, cooperative - Neurologic Neurologic: CNII-XII intact, moves all extremities HEART Score - HEART Score EKG: Normal Age: 45-65 Risk factors: > 3 risk factors or hx of atherosclerotic disease Troponin: Troponin T < 0.010 ng/mL (0.00-0.029) 01/29/22 15:59 Troponin: < normal limit - Critical Actions Critical Actions: 0-3 pts:0.9-1.7%risk of adverse cardiac event.Candidate for discharge Results - Labs CBC & Chem 7: 02/03/22 04:56 02/03/22 04:56 Labs: Laboratory Last Values WBC 8.5 K/mm3 (4.5-11.0) 02/03/22 04:56 RBC 4.17 M/mm3 (3.65-5.03) 02/03/22 04:56 Hgb 10.9 gm/dl (10.1-14.3) 02/03/22 04:56 Hct 36.4 % (30.3-42.9) 02/03/22 04:56 MCV 87 fl (79-97) 02/03/22 04:56 MCH 26 pg (28-32) L 02/03/22 04:56 MCHC 30 % (30-34) 02/03/22 04:56 RDW 18.8 % (13.2-15.2) H 02/03/22 04:56 Plt Count 239 K/mm3 (140-440) 02/03/22 04:56 Lymph % (Auto) 14.5 % (13.4-35.0) 01/28/22 12:43 [place] % (Auto) 9.2 % (0.0-7.3) H 01/28/22 12:43 Eos % (Auto) 2.0 % (0.0-4.3) 01/28/22 12:43 Baso % (Auto) 0.5 % (0.0-1.8) 01/28/22 12:43 Lymph # (Auto) 1.0 K/mm3 (1.2-5.4) L 01/28/22 12:43 [place] # (Auto) 0.6 K/mm3 (0.0-0.8) 01/28/22 12:43 Eos # (Auto) 0.1 K/mm3 (0.0-0.4) 01/28/22 12:43 Baso # (Auto) 0.0 K/mm3 (0.0-0.1) 01/28/22 12:43 Add Manual Diff Complete 01/29/22 04:35 Total Counted 100 01/29/22 04:35 Seg Neutrophils % Front Desk Supervisor 01/29/22 04:35 Seg Neuts % (Manual) 97.0 % (40.0-70.0) H 01/29/22 04:35 Band Neutrophils % 0 % 01/29/22 04:35 Lymphocytes % (Manual) 2.0 % (13.4-35.0) L 01/29/22 04:35 Reactive Lymphs % (Man) 0 % 01/29/22 04:35 Monocytes % (Manual) 1.0 % (0.0-7.3) 01/29/22 04:35 Eosinophils % (Manual) 0 % (0.0-4.3) 01/29/22 04:35 Basophils % (Manual) 0 % (0.0-1.8) 01/29/22 04:35 Metamyelocytes % 0 % 01/29/22 04:35 Myelocytes % 0 % 01/29/22 04:35 Promyelocytes % 0 % 01/29/22 04:35 Blast Cells % 0 % 01/29/22 04:35 Nucleated RBC % Not Reportable 01/29/22 04:35 Seg Neutrophils # 4.8 K/mm3 (1.8-7.7) 01/28/22 12:43 Seg Neutrophils # Man 5.5 K/mm3 (1.8-7.7) 01/29/22 04:35 Band Neutrophils # 0.0 K/mm3 01/29/22 04:35 Lymphocytes # (Manual) 0.1 K/mm3 (1.2-5.4) L 01/29/22 04:35 Abs React Lymphs (Man) 0.0 K/mm3 01/29/22 04:35 Monocytes # (Manual) 0.1 K/mm3 (0.0-0.8) 01/29/22 04:35 Eosinophils # (Manual) 0.0 K/mm3 (0.0-0.4) 01/29/22 04:35 Basophils # (Manual) 0.0 K/mm3 (0.0-0.1) 01/29/22 04:35 Metamyelocytes # 0.0 K/mm3 01/29/22 04:35 Myelocytes # 0.0 K/mm3 01/29/22 04:35 Promyelocytes # 0.0 K/mm3 01/29/22 04:35 Blast Cells # 0.0 K/mm3 01/29/22 04:35 WBC Morphology Not Reportable 01/29/22 04:35 Hypersegmented Neuts Not Reportable 01/29/22 04:35 Hyposegmented Neuts Not Reportable 01/29/22 04:35 Hypogranular Neuts Not Reportable 01/29/22 04:35 Smudge Cells Not Reportable 01/29/22 04:35 Toxic Granulation Not Reportable 01/29/22 04:35 Toxic Vacuolation Not Reportable 01/29/22 04:35 Dohle Bodies Not Reportable 01/29/22 04:35 Pelger-Huet Anomaly Not Reportable 01/29/22 04:35 Papa Rods Not Reportable 01/29/22 04:35 Platelet Estimate Consistent w auto 01/29/22 04:35 Clumped Platelets Not Reportable 01/29/22 04:35 Plt Clumps, EDTA Not Reportable 01/29/22 04:35 Large Platelets Not Reportable 01/29/22 04:35 Giant Platelets Not Reportable 01/29/22 04:35 Platelet Satelliting Not Reportable 01/29/22 04:35 Plt Morphology Comment Not Reportable 01/29/22 04:35 RBC Morphology Not Reportable 01/29/22 04:35 Dimorphic RBCs Not Reportable 01/29/22 04:35 Polychromasia Not Reportable 01/29/22 04:35 Hypochromasia Not Reportable 01/29/22 04:35 Poikilocytosis Not Reportable 01/29/22 04:35 Anisocytosis 1+ 01/29/22 04:35 Microcytosis Not Reportable 01/29/22 04:35 Macrocytosis Not Reportable 01/29/22 04:35 Spherocytes Not Reportable 01/29/22 04:35 Pappenheimer Bodies Not Reportable 01/29/22 04:35 Sickle Cells Not Reportable 01/29/22 04:35 Target Cells Not Reportable 01/29/22 04:35 Tear Drop Cells Not Reportable 01/29/22 04:35 Ovalocytes Not Reportable 01/29/22 04:35 Helmet Cells Not Reportable 01/29/22 04:35 Landry-Catarina Bodies Not Reportable 01/29/22 04:35 [place] Rings Not Reportable 01/29/22 04:35 Shyann Cells Not Reportable 01/29/22 04:35 Bite Cells Not Reportable 01/29/22 04:35 Crenated Cell Not Reportable 01/29/22 04:35 Elliptocytes Not Reportable 01/29/22 04:35 Acanthocytes (Spur) Not Reportable 01/29/22 04:35 Rouleaux Not Reportable 01/29/22 04:35 Hemoglobin C Crystals Not Reportable 01/29/22 04:35 Schistocytes Not Reportable 01/29/22 04:35 Malaria parasites Not Reportable 01/29/22 04:35 Guillermo Bodies Not Reportable 01/29/22 04:35 Hem Pathologist Commnt No 01/29/22 04:35 PT 15.8 Sec. (12.2-14.9) H 01/28/22 18:56 INR 1.13 (0.87-1.13) 01/28/22 18:56 APTT 33.9 Sec. (24.2-36.6) 01/28/22 18:56 ABG pH 7.366 pH Units (7.350-7.450) 01/29/22 Unknown ABG pCO2 74.0 mm Hg 01/29/22 Unknown ABG pO2 58.0 mm Hg (80.0-90.0) L 01/29/22 Unknown ABG HCO3 41.5 mmol/L (20.0-26.0) H 01/29/22 Unknown ABG O2 Saturation 89.7 % (95.0-99.0) L 01/29/22 Unknown ABG O2 Content 11.1 (0.0-44) 01/29/22 Unknown ABG Base Excess 14.0 mmol/L (-2.0-3.0) H 01/29/22 Unknown ABG Hemoglobin 9.0 gm/dl (12.0-16.0) L 01/29/22 Unknown ABG Carboxyhemoglobin 2.5 % (0.0-5.0) 01/29/22 Unknown ABG Methemoglobin 0.4 % (0.0-1.5) 01/29/22 Unknown Oxyhemoglobin 87.1 % (95.0-99.0) L 01/29/22 Unknown FiO2 36 % 01/29/22 Unknown Sodium 141 mmol/L (137-145) 01/30/22 04:32 Potassium 4.8 mmol/L (3.6-5.0) 01/30/22 04:32 Chloride 96.4 mmol/L (98-107) L 01/30/22 04:32 Carbon Dioxide 38 mmol/L (22-30) H 01/30/22 04:32 Anion Gap 11 mmol/L 01/30/22 04:32 BUN 28 mg/dL (7-17) H 01/30/22 04:32 Creatinine 1.7 mg/dL (0.6-1.2) H 02/03/22 04:56 Estimated GFR 37 ml/min 02/03/22 04:56 BUN/Creatinine Ratio 16 % 01/30/22 04:32 Glucose 149 mg/dL (65-100) H 01/30/22 04:32 Calcium 10.0 mg/dL (8.4-10.2) 01/30/22 04:32 Total Bilirubin 0.60 mg/dL (0.1-1.2) 01/29/22 04:35 AST 14 units/L (5-40) 01/29/22 04:35 ALT 9 units/L (7-56) 01/29/22 04:35 Alkaline Phosphatase 117 units/L (35-129) 01/29/22 04:35 Troponin T < 0.010 ng/mL (0.00-0.029) 01/29/22 15:59 NT-Pro-B Natriuret Pep 1347 pg/mL (0-900) H 01/28/22 12:43 Total Protein 8.7 g/dL (6.3-8.2) H 01/29/22 04:35 Albumin 3.3 g/dL (3.9-5) L 01/29/22 04:35 Albumin/Globulin Ratio 0.6 % 01/29/22 04:35 SARS-CoV-2 (PCR) Negative (Negative) 02/07/22 11:21 Small/IV: Voiding Method External Female Catheter Active Medications - Current Medications Current Medications: Generic Name Dose Route Start Last Admin Trade Name Freq PRN Reason Stop Dose Admin Acetaminophen 650 mg 01/28/22 18:16 Acetaminophen 325 Mg Tab PO Q4H PRN Pain MILD(1-3)/Fever >100.5/CHAVEZ Albuterol 2.5 mg 01/28/22 18:12 02/03/22 06:00 Albuterol 2.5 Mg/3 Ml Nebu IH 2.5 mg Q4HRT PRN Administration Shortness Of Breath Albuterol/Ipratropium 1 ampul 01/30/22 08:00 02/07/22 14:33 Ipratropium/Albuterol Sulfate 3 Ml Ampul.Neb IH 1 ampul TIDRT MARCELLA Administration Amiodarone HCl 200 mg 01/28/22 19:00 02/07/22 09:12 Amiodarone 200 Mg Tab PO 200 mg QDAY MARCELLA Administration Amlodipine Besylate 10 mg 01/28/22 19:00 02/07/22 09:18 Amlodipine 10 Mg Tab PO 10 mg QDAY MARCELLA Administration Apixaban 5 mg 01/28/22 22:00 02/07/22 09:12 Apixaban 5 Mg Tab PO 5 mg Q12HR MARCELLA Administration Protocol Ascorbic Acid 500 mg 01/28/22 22:00 02/07/22 09:12 Ascorbic Acid 500 Mg Tab PO 500 mg BID MARCELLA Administration Aspirin 81 mg 01/28/22 19:00 02/07/22 09:12 Aspirin 81 Mg Tab Chew PO 81 mg QDAY MARCELLA Administration Atenolol 25 mg 01/28/22 19:00 02/07/22 09:12 Atenolol 25 Mg Tab PO 25 mg DAILY MARCELLA Administration Atorvastatin Calcium 40 mg 01/28/22 22:00 02/06/22 22:20 Atorvastatin 40 Mg Tab PO 40 mg QHS MARCELLA Administration Diltiazem HCl 120 mg 01/28/22 19:00 02/07/22 09:12 Diltiazem Cd 120 Mg Cap PO 120 mg QDAY MARCELLA Administration Diphenhydramine HCl 25 mg 01/28/22 20:57 01/29/22 21:14 Diphenhydramine 50 Mg/Ml Vial IV 25 mg Q4H PRN Administration Itching Furosemide 40 mg 02/01/22 18:00 02/07/22 17:07 Furosemide 40 Mg Tab PO 40 mg 0600,1800 MARCELLA Administration Gabapentin 300 mg 01/28/22 22:00 02/07/22 09:12 Gabapentin 300 Mg Cap PO 300 mg BID MARCELLA Administration Hydralazine HCl 100 mg 01/29/22 14:00 02/07/22 17:07 Hydralazine 100 Mg Tab PO 100 mg TID MARCELLA Administration Labetalol HCl 10 mg 01/29/22 14:00 01/29/22 17:38 Labetalol 20 Mg/4 Ml Inj IV 10 mg Q4HR PRN Administration sbp>160 Morphine Sulfate 2 mg 01/28/22 18:39 02/07/22 18:31 Morphine 2 Mg/1 Ml Inj IV 2 mg Q4H PRN Administration Pain, Moderate (4-6) Ondansetron HCl 4 mg 01/28/22 18:16 Ondansetron 4 Mg/2 Ml Inj IV Q8H PRN Nausea And Vomiting Pantoprazole Sodium 40 mg 01/30/22 13:00 02/07/22 09:12 Pantoprazole 40 Mg Tab PO 40 mg QDAC MARCELLA Administration Prednisone 20 mg 02/02/22 10:00 02/07/22 09:12 Prednisone 20 Mg Tab PO 20 mg QDAY MARCELLA Administration Sodium Chloride 10 ml 01/28/22 22:00 02/07/22 09:17 Sodium Chloride 0.9% 10 Ml Flush Syringe IV 10 ml BID MARCELLA Administration Sodium Chloride 10 ml 01/28/22 18:16 02/05/22 07:09 Sodium Chloride 0.9% 10 Ml Flush Syringe IV 10 ml PRN PRN Administration LINE FLUSH Tramadol HCl 50 mg 01/28/22 18:12 02/05/22 06:07 Tramadol 50 Mg Tab PO 50 mg Q6H PRN Administration Pain, Moderate (4-6) Zinc Sulfate 220 mg 01/28/22 22:00 02/07/22 09:12 Zinc Sulfate 220 Mg Cap PO 220 mg BID MARCELLA Administration Nutrition/Malnutrition Assess - Dietary Evaluation Nutrition/Malnutrition Findings: Nutrition Notes Start: 02/03/22 14:14 Freq: Status: Active Protocol: Document 02/03/22 14:14 MAURICE (Rec: 02/03/22 14:19 MAURICE [id number]) Nutrition Notes Need for Assessment generated from: LOS Initial or Follow up Brief Note Current Diagnosis Hypertension,Heart Failure Other Pertinent Diagnosis Acute resp failure, severe pulmonary HTN Current Diet [place] Height 5 ft 3 in Weight 181 kg [place] Body Weight (kg) 52.27 BMI 70.7 Weight Status Morbidly Obese Subjective/Other Information Pt screened for LOS. Spoke to pt via phone. She states that she had diarrhea and requested [place] diet. She is tolerating and wants to return to Cardiac diet now. Pt awaiting NH placement. Burn Absent Trauma Absent Minimum of two criteria No Is patient on ventilator? No Is Patient Ambulatory and/or Out of Bed No REE-([facility]-confined to bed) 2816.640 Kcal/Kg value to use for calculation 9 Approximate Energy Requirements Using 1629 kcal/Kg Calculation Used for Recommendations Kcal/kg Additional Notes Pro needs 0.8-1g/kg adjBW: 93- 117g/day Fluid needs 1ml/kcal Nutrition Intervention Follow-Up By: 02/10/22 Additional Comments F/U: intakes
[2022-02-08 06:26] VITALS: BP 111/80
[2022-02-08] MEDS: FUROSEMIDE 40 MG TAB PO SCH (06:32)
[2022-02-08] MEDS: IPRATROPIUM/ALBUTEROL SULFATE 3 ML AMPUL.NEB IH SCH (08:46)
[2022-02-08] MEDS: ASPIRIN 81 MG TAB CHEW PO SCH (09:13)
[2022-02-08] MEDS: amLODIPine 10 MG TAB PO SCH (09:14)
[2022-02-08] MEDS: predniSONE 20 MG TAB PO SCH (09:14)
[2022-02-08] MEDS: AMIODARONE 200 MG TAB PO SCH (09:14)
[2022-02-08] MEDS: ASCORBIC ACID 500 MG TAB PO SCH (09:14)
[2022-02-08] MEDS: PANTOPRAZOLE 40 MG TAB PO SCH (09:14)
[2022-02-08] MEDS: dilTIAZem CD 120 MG CAP PO SCH (09:14)
[2022-02-08] MEDS: atenoloL 25 MG TAB PO SCH (09:14)
[2022-02-08] MEDS: GABAPENTIN 300 MG CAP PO SCH (09:14)
[2022-02-08] MEDS: hydrALAZINE 100 MG TAB PO SCH (09:14)
[2022-02-08] MEDS: ZINC SULFATE 220 MG CAP PO SCH (09:14)
[2022-02-08] MEDS: APIXABAN 5 MG TAB PO SCH (09:14)
[2022-02-08] MEDS: MORPHINE 2 MG/1 ML INJ IV PRN (09:18)
--- NOTE | 2022-02-08 09:52 | Progress Note ---
Assessment and Plan Assessment and plan: 64-year-old female with morbid obesity-current BMI of 70.7 and weighing about 400 pounds on home oxygen up to 4 L nasal cannula comes in for shortness of breath chest pain, headache and diarrhea. Patient states that she has been short of breath for last couple years and her oxygen levels usually run around 85-90. She has been able to walk to the restroom and ADLs till 1 month ago. Now she is nearly bedridden. Uses bedside commode. No fever or chills. Patient is very hypoxic in the emergency room with oxygen at low 80s. Patient is supposed to be on CPAP at home for obstructive sleep apnea but does not use because of inconvenience. Assessment and Plan: #Acute respiratory failure with hypoxia Currently on supplemental oxygen 4 L/min Etiology secondary to pulmonary hypertension, severe cord pulmonale and OHS/LUZ MARINA - Continue afterload reduction and diuresis Pulmonary following #Severe pulmonary hypertension #Severe cor pulmonale with dilated right heart chamber #Moderate to severe tricuspid regurgitation #Compensated diastolic heart failure -Elevated BNP on admission - CXR findings consistent with pulmonary edema from congestive heart failure -ECHO revealed left ventricular systolic function normal with concentric left ventricular hypertrophy and EF of 55%. Right ventricle is moderate to severely dilated. -Moderate to severe pulmonary hypertension -daily weights -I/O's -Lasix IV BID -Cardiology following #Obesity hypoventilation syndrome Elevated BMI, recommend BiPAP nightly #Paroxysmal atrial fibrillation -Continue home diltiazem and Eliquis #Essential hypertension -Amlodipine, atenolol, Lasix Added hydralazine 100 mg p.o. 3 times daily #Hyperkalemia 5.5, administered IV calcium gluconate on admission Suspect this is Aldactone related, hold Aldactone for that at this time Trend on serial BMP #Acute kidney injury due to vasomotor nephropathy - Admission Cr: 1.6, Baseline Cr: 1.21.6 - etiology: Possibly medication related - avoid nephrotoxic agents - monitor I/O's - renal adjust medications - daily renal profile #Morbid Obesity - BMI 70.7 - Counseled patient on the importance of weight loss, incorporating exercise, and dietary changes (lean meats, fresh fruits and vegetables, and water intake). Patient expresses understanding. Hospital Course: 01/29: elevated BP this Am. restarted home medications, added hydralazine for BP optimization. Continue diuresis with lasix 40 IV BID. Patient requested to be DNR/AND. Paper work signed and status updated in chart. Follow kidney fx on serial bmp. Can likely be downgraded to floor tomorrow. Patient is bedbound due to morbid obesity, family having trouble supporting her at home. CM/SW consulted for assistance. 01/31: Patient still requiring 5 L O2 to maintain saturations greater than 92%. We will obtain physical therapy evaluation to assess disposition. 02/01: Patient with 4 L O2 and saturations greater than 92%. [facility] accepted the patient. 02/02: Awaiting insurance authorization for [facility] placement. Respiratory status is stable and at baseline. Physical therapy recommends RICHIE we will transition to LTC/PALOMO with daily assistance 02/03: Awaiting [facility] placement. Hold BP meds for now. Insurance company denies placement and reports pt only qualifies for alf care and will need to go home. However, pt states she cannot walk or care for herself. Daughter not able to help right now. 02/04: Insurance company denied placement and reports pt only qualifies for alf care and will need to go home. However, pt states she cannot walk or care for herself. Daughter not able to help right now. 02/05: Insurance company denied placement and reports pt only qualifies for alf care and will need to go home. However, pt states she cannot walk or care for herself. CM reports agreement with discharge plan of home on Sunday but now pt states daughter is unable to help her at home. CM discussion for disposition tomorrow. 02/06; discharge orders are given prescriptions are signed to DC home with home health, DC planning per case management 02/07; DC planning per case management, planning placement if cannot be done patient will be discharged home with equipment Hospitalist Physical - Constitutional Vitals: Temp Pulse Resp BP Pulse Ox 98.3 F 84 17 111/80 96 02/07/22 21:57 02/08/22 08:00 02/08/22 08:00 02/08/22 06:25 02/08/22 08:48 General appearance: Present: no acute distress, well-nourished, obese (Morbidly obese) HEART Score - HEART Score EKG: Normal Age: 45-65 Risk factors: > 3 risk factors or hx of atherosclerotic disease Troponin: Troponin T < 0.010 ng/mL (0.00-0.029) 01/29/22 15:59 Troponin: < normal limit - Critical Actions Critical Actions: 0-3 pts:0.9-1.7%risk of adverse cardiac event.Candidate for discharge Results - Labs CBC & Chem 7: 02/03/22 04:56 02/03/22 04:56 Labs: Laboratory Last Values WBC 8.5 K/mm3 (4.5-11.0) 02/03/22 04:56 RBC 4.17 M/mm3 (3.65-5.03) 02/03/22 04:56 Hgb 10.9 gm/dl (10.1-14.3) 02/03/22 04:56 Hct 36.4 % (30.3-42.9) 02/03/22 04:56 MCV 87 fl (79-97) 02/03/22 04:56 MCH 26 pg (28-32) L 02/03/22 04:56 MCHC 30 % (30-34) 02/03/22 04:56 RDW 18.8 % (13.2-15.2) H 02/03/22 04:56 Plt Count 239 K/mm3 (140-440) 02/03/22 04:56 Lymph % (Auto) 14.5 % (13.4-35.0) 01/28/22 12:43 [place] % (Auto) 9.2 % (0.0-7.3) H 01/28/22 12:43 Eos % (Auto) 2.0 % (0.0-4.3) 01/28/22 12:43 Baso % (Auto) 0.5 % (0.0-1.8) 01/28/22 12:43 Lymph # (Auto) 1.0 K/mm3 (1.2-5.4) L 01/28/22 12:43 [place] # (Auto) 0.6 K/mm3 (0.0-0.8) 01/28/22 12:43 Eos # (Auto) 0.1 K/mm3 (0.0-0.4) 01/28/22 12:43 Baso # (Auto) 0.0 K/mm3 (0.0-0.1) 01/28/22 12:43 Add Manual Diff Complete 01/29/22 04:35 Total Counted 100 01/29/22 04:35 Seg Neutrophils % Sales Support Representative 01/29/22 04:35 Seg Neuts % (Manual) 97.0 % (40.0-70.0) H 01/29/22 04:35 Band Neutrophils % 0 % 01/29/22 04:35 Lymphocytes % (Manual) 2.0 % (13.4-35.0) L 01/29/22 04:35 Reactive Lymphs % (Man) 0 % 01/29/22 04:35 Monocytes % (Manual) 1.0 % (0.0-7.3) 01/29/22 04:35 Eosinophils % (Manual) 0 % (0.0-4.3) 01/29/22 04:35 Basophils % (Manual) 0 % (0.0-1.8) 01/29/22 04:35 Metamyelocytes % 0 % 01/29/22 04:35 Myelocytes % 0 % 01/29/22 04:35 Promyelocytes % 0 % 01/29/22 04:35 Blast Cells % 0 % 01/29/22 04:35 Nucleated RBC % Not Reportable 01/29/22 04:35 Seg Neutrophils # 4.8 K/mm3 (1.8-7.7) 01/28/22 12:43 Seg Neutrophils # Man 5.5 K/mm3 (1.8-7.7) 01/29/22 04:35 Band Neutrophils # 0.0 K/mm3 01/29/22 04:35 Lymphocytes # (Manual) 0.1 K/mm3 (1.2-5.4) L 01/29/22 04:35 Abs React Lymphs (Man) 0.0 K/mm3 01/29/22 04:35 Monocytes # (Manual) 0.1 K/mm3 (0.0-0.8) 01/29/22 04:35 Eosinophils # (Manual) 0.0 K/mm3 (0.0-0.4) 01/29/22 04:35 Basophils # (Manual) 0.0 K/mm3 (0.0-0.1) 01/29/22 04:35 Metamyelocytes # 0.0 K/mm3 01/29/22 04:35 Myelocytes # 0.0 K/mm3 01/29/22 04:35 Promyelocytes # 0.0 K/mm3 01/29/22 04:35 Blast Cells # 0.0 K/mm3 01/29/22 04:35 WBC Morphology Not Reportable 01/29/22 04:35 Hypersegmented Neuts Not Reportable 01/29/22 04:35 Hyposegmented Neuts Not Reportable 01/29/22 04:35 Hypogranular Neuts Not Reportable 01/29/22 04:35 Smudge Cells Not Reportable 01/29/22 04:35 Toxic Granulation Not Reportable 01/29/22 04:35 Toxic Vacuolation Not Reportable 01/29/22 04:35 Dohle Bodies Not Reportable 01/29/22 04:35 Pelger-Huet Anomaly Not Reportable 01/29/22 04:35 Papa Rods Not Reportable 01/29/22 04:35 Platelet Estimate Consistent w auto 01/29/22 04:35 Clumped Platelets Not Reportable 01/29/22 04:35 Plt Clumps, EDTA Not Reportable 01/29/22 04:35 Large Platelets Not Reportable 01/29/22 04:35 Giant Platelets Not Reportable 01/29/22 04:35 Platelet Satelliting Not Reportable 01/29/22 04:35 Plt Morphology Comment Not Reportable 01/29/22 04:35 RBC Morphology Not Reportable 01/29/22 04:35 Dimorphic RBCs Not Reportable 01/29/22 04:35 Polychromasia Not Reportable 01/29/22 04:35 Hypochromasia Not Reportable 01/29/22 04:35 Poikilocytosis Not Reportable 01/29/22 04:35 Anisocytosis 1+ 01/29/22 04:35 Microcytosis Not Reportable 01/29/22 04:35 Macrocytosis Not Reportable 01/29/22 04:35 Spherocytes Not Reportable 01/29/22 04:35 Pappenheimer Bodies Not Reportable 01/29/22 04:35 Sickle Cells Not Reportable 01/29/22 04:35 Target Cells Not Reportable 01/29/22 04:35 Tear Drop Cells Not Reportable 01/29/22 04:35 Ovalocytes Not Reportable 01/29/22 04:35 Helmet Cells Not Reportable 01/29/22 04:35 [place] Bodies Not Reportable 01/29/22 04:35 [employer] Rings Not Reportable 01/29/22 04:35 Shyann Cells Not Reportable 01/29/22 04:35 Bite Cells Not Reportable 01/29/22 04:35 Crenated Cell Not Reportable 01/29/22 04:35 Elliptocytes Not Reportable 01/29/22 04:35 Acanthocytes (Spur) Not Reportable 01/29/22 04:35 Rouleaux Not Reportable 01/29/22 04:35 Hemoglobin C Crystals Not Reportable 01/29/22 04:35 Schistocytes Not Reportable 01/29/22 04:35 Malaria parasites Not Reportable 01/29/22 04:35 Guillermo Bodies Not Reportable 01/29/22 04:35 Hem Pathologist Commnt No 01/29/22 04:35 PT 15.8 Sec. (12.2-14.9) H 01/28/22 18:56 INR 1.13 (0.87-1.13) 01/28/22 18:56 APTT 33.9 Sec. (24.2-36.6) 01/28/22 18:56 ABG pH 7.366 pH Units (7.350-7.450) 01/29/22 Unknown ABG pCO2 74.0 mm Hg 01/29/22 Unknown ABG pO2 58.0 mm Hg (80.0-90.0) L 01/29/22 Unknown ABG HCO3 41.5 mmol/L (20.0-26.0) H 01/29/22 Unknown ABG O2 Saturation 89.7 % (95.0-99.0) L 01/29/22 Unknown ABG O2 Content 11.1 (0.0-44) 01/29/22 Unknown ABG Base Excess 14.0 mmol/L (-2.0-3.0) H 01/29/22 Unknown ABG Hemoglobin 9.0 gm/dl (12.0-16.0) L 01/29/22 Unknown ABG Carboxyhemoglobin 2.5 % (0.0-5.0) 01/29/22 Unknown ABG Methemoglobin 0.4 % (0.0-1.5) 01/29/22 Unknown Oxyhemoglobin 87.1 % (95.0-99.0) L 01/29/22 Unknown FiO2 36 % 01/29/22 Unknown Sodium 141 mmol/L (137-145) 01/30/22 04:32 Potassium 4.8 mmol/L (3.6-5.0) 01/30/22 04:32 Chloride 96.4 mmol/L (98-107) L 01/30/22 04:32 Carbon Dioxide 38 mmol/L (22-30) H 01/30/22 04:32 Anion Gap 11 mmol/L 01/30/22 04:32 BUN 28 mg/dL (7-17) H 01/30/22 04:32 Creatinine 1.7 mg/dL (0.6-1.2) H 02/03/22 04:56 Estimated GFR 37 ml/min 02/03/22 04:56 BUN/Creatinine Ratio 16 % 01/30/22 04:32 Glucose 149 mg/dL (65-100) H 01/30/22 04:32 Calcium 10.0 mg/dL (8.4-10.2) 01/30/22 04:32 Total Bilirubin 0.60 mg/dL (0.1-1.2) 01/29/22 04:35 AST 14 units/L (5-40) 01/29/22 04:35 ALT 9 units/L (7-56) 01/29/22 04:35 Alkaline Phosphatase 117 units/L (35-129) 01/29/22 04:35 Troponin T < 0.010 ng/mL (0.00-0.029) 01/29/22 15:59 NT-Pro-B Natriuret Pep 1347 pg/mL (0-900) H 01/28/22 12:43 Total Protein 8.7 g/dL (6.3-8.2) H 01/29/22 04:35 Albumin 3.3 g/dL (3.9-5) L 01/29/22 04:35 Albumin/Globulin Ratio 0.6 % 01/29/22 04:35 SARS-CoV-2 (PCR) Negative (Negative) 02/07/22 11:21 Small/IV: Voiding Method External Female Catheter Active Medications - Current Medications Current Medications: Generic Name Dose Route Start Last Admin Trade Name Freq PRN Reason Stop Dose Admin Acetaminophen 650 mg 01/28/22 18:16 Acetaminophen 325 Mg Tab PO Q4H PRN Pain MILD(1-3)/Fever >100.5/CHAVEZ Albuterol 2.5 mg 01/28/22 18:12 02/03/22 06:00 Albuterol 2.5 Mg/3 Ml Nebu IH 2.5 mg Q4HRT PRN Administration Shortness Of Breath Albuterol/Ipratropium 1 ampul 01/30/22 08:00 02/08/22 08:46 Ipratropium/Albuterol Sulfate 3 Ml Ampul.Neb IH 1 ampul TIDRT MARCELLA Administration Amiodarone HCl 200 mg 01/28/22 19:00 02/08/22 09:14 Amiodarone 200 Mg Tab PO 200 mg QDAY MARCELLA Administration Amlodipine Besylate 10 mg 01/28/22 19:00 02/08/22 09:14 Amlodipine 10 Mg Tab PO 10 mg QDAY MARCELLA Administration Apixaban 5 mg 01/28/22 22:00 02/08/22 09:14 Apixaban 5 Mg Tab PO 5 mg Q12HR MARCELLA Administration Protocol Ascorbic Acid 500 mg 01/28/22 22:00 02/08/22 09:14 Ascorbic Acid 500 Mg Tab PO 500 mg BID MARCELLA Administration Aspirin 81 mg 01/28/22 19:00 02/08/22 09:13 Aspirin 81 Mg Tab Chew PO 81 mg QDAY MARCELLA Administration Atenolol 25 mg 01/28/22 19:00 02/08/22 09:14 Atenolol 25 Mg Tab PO 25 mg DAILY MARCELLA Administration Atorvastatin Calcium 40 mg 01/28/22 22:00 02/07/22 22:38 Atorvastatin 40 Mg Tab PO 40 mg QHS MARCELLA Administration Diltiazem HCl 120 mg 01/28/22 19:00 02/08/22 09:14 Diltiazem Cd 120 Mg Cap PO 120 mg QDAY MARCELLA Administration Diphenhydramine HCl 25 mg 01/28/22 20:57 01/29/22 21:14 Diphenhydramine 50 Mg/Ml Vial IV 25 mg Q4H PRN Administration Itching Furosemide 40 mg 02/01/22 18:00 02/08/22 06:32 Furosemide 40 Mg Tab PO 40 mg 0600,1800 MARCELLA Administration Gabapentin 300 mg 01/28/22 22:00 02/08/22 09:14 Gabapentin 300 Mg Cap PO 300 mg BID MARCELLA Administration Hydralazine HCl 100 mg 01/29/22 14:00 02/08/22 09:14 Hydralazine 100 Mg Tab PO 100 mg TID MARCELLA Administration Labetalol HCl 10 mg 01/29/22 14:00 01/29/22 17:38 Labetalol 20 Mg/4 Ml Inj IV 10 mg Q4HR PRN Administration sbp>160 Morphine Sulfate 2 mg 01/28/22 18:39 02/08/22 09:18 Morphine 2 Mg/1 Ml Inj IV 2 mg Q4H PRN Administration Pain, Moderate (4-6) Ondansetron HCl 4 mg 01/28/22 18:16 Ondansetron 4 Mg/2 Ml Inj IV Q8H PRN Nausea And Vomiting Pantoprazole Sodium 40 mg 01/30/22 13:00 02/08/22 09:14 Pantoprazole 40 Mg Tab PO 40 mg QDAC MARCELLA Administration Prednisone 20 mg 02/02/22 10:00 02/08/22 09:14 Prednisone 20 Mg Tab PO 20 mg QDAY MARCELLA Administration Sodium Chloride 10 ml 01/28/22 22:00 02/08/22 09:15 Sodium Chloride 0.9% 10 Ml Flush Syringe IV 10 ml BID MARCELLA Administration Sodium Chloride 10 ml 01/28/22 18:16 02/05/22 07:09 Sodium Chloride 0.9% 10 Ml Flush Syringe IV 10 ml PRN PRN Administration LINE FLUSH Tramadol HCl 50 mg 01/28/22 18:12 02/05/22 06:07 Tramadol 50 Mg Tab PO 50 mg Q6H PRN Administration Pain, Moderate (4-6) Zinc Sulfate 220 mg 01/28/22 22:00 02/08/22 09:14 Zinc Sulfate 220 Mg Cap PO 220 mg BID MARCELLA Administration Nutrition/Malnutrition Assess - Dietary Evaluation Nutrition/Malnutrition Findings: Nutrition Notes Start: 02/03/22 14:14 Freq: Status: Active Protocol: Document 02/03/22 14:14 MAURICE (Rec: 02/03/22 14:19 MAUR[id number]) Nutrition Notes Need for Assessment generated from: LOS Initial or Follow up Brief Note Current Diagnosis Hypertension,Heart Failure Other Pertinent Diagnosis Acute resp failure, severe pulmonary HTN Current Diet [place] Height 5 ft 3 in Weight 181 kg [place] Body Weight (kg) 52.27 BMI 70.7 Weight Status Morbidly Obese Subjective/Other Information Pt screened for LOS. Spoke to pt via phone. She states that she had diarrhea and requested [place] diet. She is tolerating and wants to return to Cardiac diet now. Pt awaiting NH placement. Burn Absent Trauma Absent Minimum of two criteria No Is patient on ventilator? No Is Patient Ambulatory and/or Out of Bed No REE-([facility]-confined to bed) 2816.640 Kcal/Kg value to use for calculation 9 Approximate Energy Requirements Using 1629 kcal/Kg Calculation Used for Recommendations Kcal/kg Additional Notes Pro needs 0.8-1g/kg adjBW: 93- 117g/day Fluid needs 1ml/kcal Nutrition Intervention Follow-Up By: 02/10/22 Additional Comments F/U: intakes
== END 2022-02-08 12:30 | disposition home health service (06) | DRG 291 ==
LOC: ED 11:37 → CC1 18:16 → IMCU 21:47 → 3A 01-30 18:21
PROVIDERS: ADMIT Internal Medicine; ATTEND Internal Medicine
PROC: 4A033R1 Measurement of Arterial Saturation, Peripheral, Percutaneous Approach (ICD-10-PCS; principal; 2022-01-29)
PROC: 5A09357 Assistance with Respiratory Ventilation, Less than 24 Consecutive Hours, Continuous Positive Airway Pressure (ICD-10-PCS; 2022-01-29)
PROC: 5A09357 Assistance with Respiratory Ventilation, Less than 24 Consecutive Hours, Continuous Positive Airway Pressure (ICD-10-PCS; 2022-02-04)
PROC: 5A09357 Assistance with Respiratory Ventilation, Less than 24 Consecutive Hours, Continuous Positive Airway Pressure (ICD-10-PCS; 2022-02-07)
DX: I13.0 Hypertensive heart and chronic kidney disease with heart failure and stage 1 through stage 4 chronic kidney disease, or unspecified chronic kidney disease (principal); N17.0 Acute kidney failure with tubular necrosis; I50.33 Acute on chronic diastolic (congestive) heart failure; J96.21 Acute and chronic respiratory failure with hypoxia; Z68.45 Body mass index [BMI] 70 or greater, adult; E66.2 Morbid (severe) obesity with alveolar hypoventilation; Z20.822 Contact with and (suspected) exposure to COVID-19; E87.5 Hyperkalemia; J44.9 Chronic obstructive pulmonary disease, unspecified; M19.90 Unspecified osteoarthritis, unspecified site; R07.89 Other chest pain; I48.0 Paroxysmal atrial fibrillation; Z71.3 Dietary counseling and surveillance; E11.40 Type 2 diabetes mellitus with diabetic neuropathy, unspecified; N18.9 Chronic kidney disease, unspecified; E11.22 Type 2 diabetes mellitus with diabetic chronic kidney disease; I27.20 Pulmonary hypertension, unspecified; I27.81 Cor pulmonale (chronic); I07.1 Rheumatic tricuspid insufficiency; Z86.711 Personal history of pulmonary embolism; Z79.82 Long term (current) use of aspirin; Z88.8 Allergy status to other drugs, medicaments and biological substances; Z91.012 Allergy to eggs; Z87.891 Personal history of nicotine dependence
CPT/HCPCS: 36415; 36600; 71045; 74018; 80048; 80053; 82565; 82803; 83880; 84484; 85007; 85025; 85027; 85610; 85730; 93005; 93306; 94640; 94644; 94760; G0378; J3490; C8929; J0610; J1200; J1940; J1956; J2270; J2930; U0003

== ENCOUNTER 2022-02-26 23:06 | Inpatient (IN) | payer MEDICARE ==
[2022-02-26] MEDS ORDERED: ASPIRIN 325 MG TAB PO ONE (23:48)
[2022-02-27] MEDS ORDERED: FUROSEMIDE 40 MG/4 ML INJ IV ONE (00:52)
[2022-02-27] MEDS ORDERED: PANTOPRAZOLE 40 MG INJ IV ONE (00:52)
[2022-02-27 01:07] LABS: Albumin 3.1 g/dL (3.9-5); Calcium 9.8 mg/dL (8.4-10.2)
[2022-02-27 01:11] LABS: Hematocrit 33.1 % (30.3-42.9); Hemoglobin 9.6 gm/dl (10.1-14.3); Mean Corpuscular HGB Conc 29 % (30-34); Mean Corpuscular Volume 88 fl (79-97); Platelet Count 314 K/mm3 (140-440); Red Blood Count 3.75 M/mm3 (3.65-5.03); Red Cell Distribution Width 19.5 % (13.2-15.2)
--- NOTE | 2022-02-27 01:14 | XRay Report ---
CHEST 1 VIEW 02/27/2022 12:01 AM INDICATION / CLINICAL INFORMATION: chestpain. COMPARISON: None available. FINDINGS: SUPPORT DEVICES: None. HEART / MEDIASTINUM: Cardiomegaly LUNGS / PLEURA: Increased pulmonary congestion and increased pulmonary vascularity No pneumothorax. IMPRESSION: Cardiomegaly with increased pulmonary vascularity congested change Signer Name: Phan Chavez MD Signed: 02/27/2022 1:10 AM Workstation Name: [id number]
--- NOTE | 2022-02-27 01:23 | Emergency Department Report ---
<CRISTY MOREAU - Last Filed: 02/27/22 01:19> ED Chest Pain HPI - General Chief Complaint: Chest Pain Stated Complaint: CHEST PAIN Time Seen by Provider: 02/27/22 00:18 Source: patient, family Mode of arrival: Stretcher Limitations: No Limitations - History of Present Illness Initial Comments: This is a 60-year-old female who is morbidly obese who has a history of arthritis, congestive heart failure, COPD, and hypertension, and pulmonary embolism who presents to the emergency department complaining of several complaints for the last 2 days including chest tightness, shortness of breath, and burning upper abdominal pain. Patient also complains of diffuse edema, and feels as if her p.o. Lasix is not working. Patient was admitted for the same, last week, but does not feel as if she was discharged with the ability to take care of her self. Patient reports compliant with her medication, and "does everything that I am supposed to do". Patient lives at home with her daughter, and does not have help, so is unable to move around, as she used to. Patient also states that their efforts and the works for her to get home, including physical therapy and Occupational Therapy, but that has not started, yet. - Related Data Previous Rx's Medication Instructions Recorded Last Taken Type ALBUTEROL NEB's [Proventil 0.083% 2.5 mg IH Q4HRT PRN nebu 02/01/22 Unknown Rx NEBS] Acetaminophen [Acetaminophen TAB] 650 mg PO Q4H PRN tablet 02/01/22 Unknown Rx Amiodarone [Cordarone 200 MG TAB] 200 mg PO QDAY tablet 02/01/22 Unknown Rx Apixaban [Eliquis] 5 mg PO Q12HR tablet 02/01/22 Unknown Rx Ascorbic Acid [Vitamin C] 500 mg PO BID tablet 02/01/22 Unknown Rx Aspirin [Aspirin BABY CHEW TAB] 81 mg PO QDAY tab.chew 02/01/22 Unknown Rx AtorvaSTATin [Lipitor] 40 mg PO QHS tablet 02/01/22 Unknown Rx Furosemide [Lasix TAB] 40 mg PO 0600,1800 tablet 02/01/22 Unknown Rx Gabapentin 300 mg PO BID capsule 02/01/22 Unknown Rx Zinc Sulfate 220 mg PO BID capsule 02/01/22 Unknown Rx amLODIPine 10 mg PO QDAY tablet 02/01/22 Unknown Rx atenoloL [Tenormin] 25 mg PO DAILY tablet 02/01/22 Unknown Rx dilTIAZem CD [Cardizem CD] 120 mg PO QDAY capsule 02/01/22 Unknown Rx hydrALAZINE [Apresoline TAB] 100 mg PO TID tab 02/01/22 Unknown Rx predniSONE [Deltasone] 20 mg PO QDAY tablet 02/01/22 Unknown Rx Pantoprazole [Protonix] 40 mg PO QDAY #30 tablet 02/06/22 Unknown Rx oxyCODONE /ACETAMINOPHEN [Percocet 1 tab PO Q6HR PRN #12 tablet 02/06/22 Unknown Rx 5/325] Allergies Allergy/AdvReac Type Severity Reaction Status Date / Time levofloxacin [From Levaquin] Allergy Itching Verified 01/28/22 21:50 egg AdvReac Severe Hives, Verified 01/31/22 10:54 NAUSEA Heart Score - HEART Score History: Slightly suspicious EKG: Non-specific Age: 45-65 Risk factors: > 3 risk factors or hx of atherosclerotic disease - EKG Read Time Time EKG Completed: 00:00 EKG Read Time: 00:18 ED Review of Systems Comment: All other systems reviewed and negative Constitutional: denies: chills, fever, weakness Eyes: denies: eye pain, eye discharge, vision change ENT: denies: ear pain, throat pain Respiratory: shortness of breath. denies: cough, wheezing Cardiovascular: chest pain. denies: palpitations Endocrine: no symptoms reported Gastrointestinal: abdominal pain. denies: nausea, diarrhea Genitourinary: denies: urgency, dysuria, discharge Musculoskeletal: joint swelling, arthralgia. denies: back pain Skin: denies: rash, lesions Neurological: denies: headache, weakness, paresthesias Psychiatric: denies: anxiety, depression Hematological/Lymphatic: denies: easy bleeding, easy bruising ED Past Medical Hx - Past Medical History Previous Medical History?: Yes Hx Hypertension: Yes Hx Congestive Heart Failure: Yes Hx Pulmonary Embolism: Yes Hx Arthritis: Yes Hx COPD: Yes Additional medical history: Abdominal hernia, severe obesity. neuropathy - Surgical History Past Surgical History?: Yes Additional Surgical History: gastric bypass-partial 2006. - Social History Smoking Status: Never Smoker Substance Use Type: None - Medications Home Medications: Home Medications Medication Instructions Recorded Confirmed Last Taken Type ALBUTEROL NEB's [Proventil 0.083% 2.5 mg IH Q4HRT PRN nebu 02/01/22 Unknown Rx NEBS] Acetaminophen [Acetaminophen TAB] 650 mg PO Q4H PRN tablet 02/01/22 Unknown Rx Amiodarone [Cordarone 200 MG TAB] 200 mg PO QDAY tablet 02/01/22 Unknown Rx Apixaban [Eliquis] 5 mg PO Q12HR tablet 02/01/22 Unknown Rx Ascorbic Acid [Vitamin C] 500 mg PO BID tablet 02/01/22 Unknown Rx Aspirin [Aspirin BABY CHEW TAB] 81 mg PO QDAY tab.chew 02/01/22 Unknown Rx AtorvaSTATin [Lipitor] 40 mg PO QHS tablet 02/01/22 Unknown Rx Furosemide [Lasix TAB] 40 mg PO 0600,1800 tablet 02/01/22 Unknown Rx Gabapentin 300 mg PO BID capsule 02/01/22 Unknown Rx Zinc Sulfate 220 mg PO BID capsule 02/01/22 Unknown Rx amLODIPine 10 mg PO QDAY tablet 02/01/22 Unknown Rx atenoloL [Tenormin] 25 mg PO DAILY tablet 02/01/22 Unknown Rx dilTIAZem CD [Cardizem CD] 120 mg PO QDAY capsule 02/01/22 Unknown Rx hydrALAZINE [Apresoline TAB] 100 mg PO TID tab 02/01/22 Unknown Rx predniSONE [Deltasone] 20 mg PO QDAY tablet 02/01/22 Unknown Rx Pantoprazole [Protonix] 40 mg PO QDAY #30 tablet 02/06/22 Unknown Rx oxyCODONE /ACETAMINOPHEN [Percocet 1 tab PO Q6HR PRN #12 tablet 02/06/22 Unknown Rx 5/325] ED Physical Exam - General Limitations: Physical Limitation General appearance: alert, in no apparent distress, obese - Head Head exam: Present: atraumatic, normocephalic - Eye Eye exam: Present: normal appearance, PERRL - ENT ENT exam: Present: mucous membranes moist - Neck Neck exam: Present: normal inspection - Respiratory Respiratory exam: Present: normal lung sounds bilaterally. Absent: respiratory distress, chest wall tenderness, decreased breath sounds, prolonged expiratory - Cardiovascular Cardiovascular Exam: Present: regular rate, normal rhythm. Absent: systolic murmur, diastolic murmur, rubs, gallop - GI/Abdominal GI/Abdominal exam: Present: soft, normal bowel sounds, other (firm edema ). Absent: distended, tenderness, rebound, bruit, pulsatile mass - Extremities Exam Extremities exam: Present: pedal edema (3+ pedal edema up to abdomen) - Back Exam Back exam: Present: normal inspection - Neurological Exam Neurological exam: Present: alert, oriented X3, other (unable to assess gait due to obesity and difficulty for the patient to move around) - Psychiatric Psychiatric exam: Present: normal affect, normal mood - Skin Skin exam: Present: warm, dry, intact, normal color. Absent: rash ED Medical Decision Making - Lab Data Result diagrams: 02/27/22 00:33 02/27/22 00:33 - Differential Diagnosis ACS, malingering, CHF, COPD exacerbation ED Disposition Clinical Impression: CHF (congestive heart failure), Hypoxia, Shortness of breath, CHF exacerbation Disposition: 09 ADMITTED INPATIENT Condition: Stable Instructions: Nonspecific Chest Pain, Adult <HUNG TANNER - Last Filed: 02/27/22 08:53> Heart Score - HEART Score History: Slightly suspicious EKG: Non-specific Age: 45-65 Risk factors: > 3 risk factors or hx of atherosclerotic disease Troponin: < normal limit HEART Score: 4 - Critical Actions Critical Actions: 4-6 pts:12-16.6% risk of adverse cardiac event. Should be admitted ED Review of Systems ROS: Stated complaint: CHEST PAIN Other details as noted in HPI ED Course Vital Signs 02/26/22 02/27/22 02/27/22 23:06 01:14 01:15 Temperature 98 F Pulse Rate 88 136 H 101 H Respiratory 18 13 13 Rate Blood Pressure 134/78 O2 Sat by Pulse 97 92 Oximetry 02/27/22 02/27/22 02/27/22 01:30 01:45 02:00 Temperature Pulse Rate 100 H 100 H 100 H Respiratory 19 13 18 Rate Blood Pressure 107/47 149/78 107/47 O2 Sat by Pulse 94 96 94 Oximetry 02/27/22 02/27/22 02/27/22 02:16 02:30 02:45 Temperature Pulse Rate 97 H Respiratory 22 Rate Blood Pressure 107/47 107/47 143/81 O2 Sat by Pulse 95 95 94 Oximetry 02/27/22 02/27/22 02/27/22 03:00 03:16 03:30 Temperature Pulse Rate Respiratory Rate Blood Pressure 149/78 149/78 149/78 O2 Sat by Pulse 94 94 97 Oximetry 02/27/22 02/27/22 02/27/22 03:45 04:00 04:16 Temperature Pulse Rate 102 H 100 H 97 H Respiratory 25 H 24 21 Rate Blood Pressure 126/59 126/59 126/59 O2 Sat by Pulse 96 94 93 Oximetry 02/27/22 02/27/22 02/27/22 04:30 04:45 05:00 Temperature Pulse Rate 94 H 100 H Respiratory 21 25 H Rate Blood Pressure 126/59 120/86 120/86 O2 Sat by Pulse 96 95 95 Oximetry 02/27/22 02/27/22 02/27/22 05:16 05:30 05:45 Temperature Pulse Rate Respiratory Rate Blood Pressure 120/86 120/86 112/67 O2 Sat by Pulse 94 93 93 Oximetry 02/27/22 02/27/22 02/27/22 06:00 06:16 06:30 Temperature Pulse Rate Respiratory Rate Blood Pressure 112/67 120/86 120/86 O2 Sat by Pulse 94 94 96 Oximetry 02/27/22 02/27/22 02/27/22 06:45 07:00 07:16 Temperature Pulse Rate Respiratory Rate Blood Pressure 127/99 127/99 127/99 O2 Sat by Pulse 96 98 94 Oximetry 02/27/22 02/27/22 07:30 07:46 Temperature Pulse Rate Respiratory Rate Blood Pressure 127/99 127/99 O2 Sat by Pulse 85 91 Oximetry ED Medical Decision Making - Lab Data Result diagrams: 02/27/22 00:33 02/27/22 00:33 Critical care attestation.: If time is entered above; I have spent that time in minutes in the direct care of this critically ill patient, excluding procedure time. ED Disposition Is pt being admited?: Yes Does the pt Need Aspirin: No
[2022-02-27] MEDS ORDERED: MORPHINE 4 MG/1 ML INJ IV PRN (09:12)
[2022-02-27] MEDS ORDERED: ONDANSETRON 4 MG/2 ML INJ IV PRN (10:00)
[2022-02-27] MEDS ORDERED: NON-FORMULARY EACH (Apixaban 5 MG Tablet) PO SCH (10:00)
[2022-02-27] MEDS ORDERED: MORPHINE 2 MG/1 ML INJ IV PRN (10:30)
[2022-02-27] MEDS ORDERED: ACETAMINOPHEN 325 MG TAB PO PRN (10:30)
[2022-02-27] MEDS ORDERED: predniSONE 20 MG TAB PO SCH (11:00)
[2022-02-27] MEDS ORDERED: amLODIPine 10 MG TAB PO SCH (11:00)
[2022-02-27] MEDS ORDERED: dilTIAZem CD 120 MG CAP PO SCH (11:00)
[2022-02-27] MEDS: APIXABAN 5 MG TAB PO SCH ×2 (11:31→22:06)
[2022-02-27] MEDS: GABAPENTIN 300 MG CAP PO SCH ×2 (11:31→22:07)
[2022-02-27] MEDS: ASPIRIN 81 MG TAB CHEW PO SCH (11:32)
[2022-02-27] MEDS: AMIODARONE 200 MG TAB PO SCH (11:34)
--- NOTE | 2022-02-27 14:51 | History and Physical Report ---
History of Present Illness Date of examination: 02/27/22 Date of admission: 02/27/22 09:13 Chief complaint: Shortness of breath History of present illness: Patient is a 61-year-old female past medical history of morbid obesity, arthritis, chronic systolic heart failure, COPD, hypertension, pulmonary embolism on Eliquis (5 mg twice daily), GERD, and hyperlipidemia presented to the ED with complaints of chest tightness, shortness of breath, and a burning sensation in her upper abdomen. Patient also endorsed diffuse edema and feeling as if her "Lasix is not working". Patient was recently discharged from [facility] for the same complaints last week, and she expressed that she did not feel that she was able to take care of herself upon her most recent discharge. Patient endorses being compliant with her medications and "doing everything that she supposed to do". Patient also endorsed that she was supposed to have home physical therapy and Occupational Therapy that have yet to start. In the ED, the patient was hemodynamically stable except for oxygen saturation of 91% requiring 4 L nasal cannula. Patient's labs revealed unremarkable troponins x2 and BNP of 720. Patient was admitted for heart failure exacerbation. Past History Past Medical History: arthritis, COPD, GERD, heart failure, hyperlipidemia, pulmonary embolism (On Eliquis 5 mg twice daily) Past Surgical History: , Other (Gastric bypass (2006)) Social history: lives with family, full code Family history: hypertension Medications and Allergies Allergies Allergy/AdvReac Type Severity Reaction Status Date / Time levofloxacin [From Levaquin] Allergy Itching Verified 01/28/22 21:50 egg AdvReac Severe Hives, Verified 01/31/22 10:54 NAUSEA Home Medications Medication Instructions Recorded Confirmed Last Taken Type ALBUTEROL NEB's [Proventil 0.083% 2.5 mg IH Q4HRT PRN nebu 02/01/22 Unknown Rx NEBS] Acetaminophen [Acetaminophen TAB] 650 mg PO Q4H PRN tablet 02/01/22 Unknown Rx Amiodarone [Cordarone 200 MG TAB] 200 mg PO QDAY tablet 02/01/22 Unknown Rx Apixaban [Eliquis] 5 mg PO Q12HR tablet 02/01/22 Unknown Rx Ascorbic Acid [Vitamin C] 500 mg PO BID tablet 02/01/22 Unknown Rx Aspirin [Aspirin BABY CHEW TAB] 81 mg PO QDAY tab.chew 02/01/22 Unknown Rx AtorvaSTATin [Lipitor] 40 mg PO QHS tablet 02/01/22 Unknown Rx Furosemide [Lasix TAB] 40 mg PO 0600,1800 tablet 02/01/22 Unknown Rx Gabapentin 300 mg PO BID capsule 02/01/22 Unknown Rx Zinc Sulfate 220 mg PO BID capsule 02/01/22 Unknown Rx amLODIPine 10 mg PO QDAY tablet 02/01/22 Unknown Rx atenoloL [Tenormin] 25 mg PO DAILY tablet 02/01/22 Unknown Rx dilTIAZem CD [Cardizem CD] 120 mg PO QDAY capsule 02/01/22 Unknown Rx hydrALAZINE [Apresoline TAB] 100 mg PO TID tab 02/01/22 Unknown Rx predniSONE [Deltasone] 20 mg PO QDAY tablet 02/01/22 Unknown Rx Pantoprazole [Protonix] 40 mg PO QDAY #30 tablet 02/06/22 Unknown Rx oxyCODONE /ACETAMINOPHEN [Percocet 1 tab PO Q6HR PRN #12 tablet 02/06/22 Unknown Rx 5/325] Active Meds: Active Medications Acetaminophen (Acetaminophen 325 Mg Tab) 650 mg PO Q4H PRN PRN Reason: Pain MILD(1-3)/Fever >100.5/CHAVEZ Amiodarone HCl (Amiodarone 200 Mg Tab) 200 mg PO QDAY [facility] Last Admin: 02/27/22 11:34 Dose: Not Given Amlodipine Besylate (Amlodipine 10 Mg Tab) 10 mg PO QDAY [facility] Last Admin: 02/27/22 11:33 Dose: Not Given Apixaban (Apixaban 5 Mg Tab) 5 mg PO Q12HR [facility]; Protocol Last Admin: 02/27/22 11:31 Dose: 5 mg Aspirin (Aspirin 81 Mg Tab Chew) 81 mg PO QDAY [facility] Last Admin: 02/27/22 11:32 Dose: 81 mg Atorvastatin Calcium (Atorvastatin 40 Mg Tab) 40 mg PO QHS [facility]CELLA Diltiazem HCl (Diltiazem Cd 120 Mg Cap) 120 mg PO QDAY [facility] Last Admin: 02/27/22 11:34 Dose: Not Given Furosemide (Furosemide 40 Mg/4 Ml Inj) 40 mg IV BID MARCELLA Gabapentin (Gabapentin 300 Mg Cap) 300 mg PO BID [facility] Last Admin: 02/27/22 11:31 Dose: 300 mg Morphine Sulfate (Morphine 2 Mg/1 Ml Inj) 2 mg IV Q4H PRN PRN Reason: Pain , Severe (7-10) Ondansetron HCl (Ondansetron 4 Mg/2 Ml Inj) 4 mg IV Q8H PRN PRN Reason: Nausea And Vomiting Oxycodone/Acetaminophen (Oxycodone /Acetaminophen 5-325mg Tab) 1 tab PO Q6H PRN PRN Reason: Pain, Moderate (4-6) Pantoprazole Sodium (Pantoprazole 40 Mg Tab) 40 mg PO DAILY@0730 [facility] Prednisone (Prednisone 20 Mg Tab) 20 mg PO QDAY [facility] Last Admin: 02/27/22 11:31 Dose: 20 mg Sodium Chloride (Sodium Chloride 0.9% 10 Ml Flush Syringe) 10 ml IV BID [facility] Last Admin: 02/27/22 11:32 Dose: 10 ml Sodium Chloride (Sodium Chloride 0.9% 10 Ml Flush Syringe) 10 ml IV PRN PRN PRN Reason: LINE FLUSH Review of Systems All systems: negative Constitutional: weight gain Respiratory: shortness of breath, dyspnea on exertion Gastrointestinal: constipation Neurological: tremors Exam - Constitutional Vitals: Temp Pulse Resp BP Pulse Ox 98 F 93 H 20 130/64 95 02/26/22 23:06 02/27/22 13:39 02/27/22 13:39 02/27/22 13:39 02/27/22 13:39 General appearance: Present: no acute distress, well-nourished, obese - EENT Eyes: Present: PERRL, EOM intact ENT: hearing intact, clear oral mucosa, dentition normal - Neck Neck: Present: supple, normal ROM - Respiratory Respiratory effort: normal Respiratory: bilateral: diminished (on 4L nasal cannula) - Cardiovascular Rhythm: regular Heart Sounds: Present: S1 & S2 - Extremities Extremities: no ischemia, pulses intact, pulses symmetrical, normal temperature, normal color Extremity abnormal: edema (trace edema of bilateral lower extremities) Peripheral Pulses: within normal limits - Abdominal General gastrointestinal: Present: soft, non-tender, non-distended, normal bowel sounds, other (significant pannus) Female genitourinary: Present: deferred - Rectal Rectal Exam: deferred - Integumentary Integumentary: Present: clear, warm, dry - Musculoskeletal Musculoskeletal: generalized weakness - Psychiatric Psychiatric: appropriate mood/affect, cooperative - Neurologic Neurologic: CNII-XII intact - Allied Health Allied health notes reviewed: nursing HEART Score - HEART Score EKG: Non-specific Age: 45-65 Risk factors: > 3 risk factors or hx of atherosclerotic disease Troponin: Troponin T 0.022 ng/mL (0.00-0.029) 02/27/22 06:46 Troponin: < normal limit - Critical Actions Critical Actions: 4-6 pts:12-16.6% risk of adverse cardiac event. Should be admitted Results - Labs CBC & Chem 7: 02/27/22 00:33 02/27/22 00:33 Labs: Laboratory Last Values WBC 6.1 K/mm3 (4.5-11.0) 02/27/22 00:33 RBC 3.75 M/mm3 (3.65-5.03) 02/27/22 00:33 Hgb 9.6 gm/dl (10.1-14.3) L 02/27/22 00:33 Hct 33.1 % (30.3-42.9) 02/27/22 00:33 MCV 88 fl (79-97) 02/27/22 00:33 MCH 26 pg (28-32) L 02/27/22 00:33 MCHC 29 % (30-34) L 02/27/22 00:33 RDW 19.5 % (13.2-15.2) H 02/27/22 00:33 Plt Count 314 K/mm3 (140-440) 02/27/22 00:33 Lymph % (Auto) Vice Chancellor 02/27/22 00:33 [place] % (Auto) Vice Chancellor 02/27/22 00:33 Eos % (Auto) Vice Chancellor 02/27/22 00:33 Baso % (Auto) Vice Chancellor 02/27/22 00:33 Lymph # (Auto) Vice Chancellor 02/27/22 00:33 [place] # (Auto) Vice Chancellor 02/27/22 00:33 Eos # (Auto) Vice Chancellor 02/27/22 00:33 Baso # (Auto) Vice Chancellor 02/27/22 00:33 Seg Neutrophils % Vice Chancellor 02/27/22 00:33 Seg Neutrophils # Vice Chancellor 02/27/22 00:33 Sodium 143 mmol/L (137-145) 02/27/22 00:33 Potassium 4.7 mmol/L (3.6-5.0) 02/27/22 00:33 Chloride 97.5 mmol/L (98-107) L 02/27/22 00:33 Carbon Dioxide 34 mmol/L (22-30) H 02/27/22 00:33 Anion Gap 16 mmol/L 02/27/22 00:33 BUN 33 mg/dL (7-17) H 02/27/22 00:33 Creatinine 1.8 mg/dL (0.6-1.2) H 02/27/22 00:33 Estimated GFR 35 ml/min 02/27/22 00:33 BUN/Creatinine Ratio 18 % 02/27/22 00:33 Glucose 95 mg/dL (65-100) 02/27/22 00:33 Calcium 9.8 mg/dL (8.4-10.2) 02/27/22 00:33 Total Bilirubin 0.30 mg/dL (0.1-1.2) 02/27/22 00:33 AST 17 units/L (5-40) 02/27/22 00:33 ALT 15 units/L (7-56) 02/27/22 00:33 Alkaline Phosphatase 143 units/L (35-129) H 02/27/22 00:33 Troponin T 0.022 ng/mL (0.00-0.029) 02/27/22 06:46 NT-Pro-B Natriuret Pep 719.5 pg/mL (0-900) 02/27/22 08:33 Total Protein 7.1 g/dL (6.3-8.2) 02/27/22 00:33 Albumin 3.1 g/dL (3.9-5) L 02/27/22 00:33 Albumin/Globulin Ratio 0.8 % 02/27/22 00:33 Assessment and Plan Assessment and plan: Patient is a 61-year-old female past medical history of morbid obesity, arthritis, chronic systolic heart failure, COPD, hypertension, pulmonary embolism on Eliquis (5 mg twice daily), GERD, and hyperlipidemia presented to the ED with complaints of chest tightness, shortness of breath, and a burning sensation in her upper abdomen. Patient also endorsed diffuse edema and feeling as if her "Lasix is not working". Patient was recently discharged from [facility] for the same complaints last week, and she expressed that she did not feel that she was able to take care of herself upon her most recent discharge. Patient endorses being compliant with her medications and "doing everything that she supposed to do". Patient also endorsed that she was supposed to have home physical therapy and Occupational Therapy that have yet to start. In the ED, the patient was hemodynamically stable except for oxygen satu ration of 91% requiring 4 L nasal cannula. Patient's labs revealed unremarkable troponins x2 and BNP of 720. Patient was admitted for heart failure exacerbation. #Acute on chronic systolic heart failure - Continue CHF exacerbation protocol: Telemetry, Strict I/O, monitor urine output every shift, daily weights, afterload reduction, low-sodium diet, and fluid restriction of approximately 1.5 mL/day, IV Lasix 40 mg twice daily - Supplemental oxygen: 4 L nasal cannula - ProBNP on admission: 719 - TTE (01/29/2022) revealing EF 55% with normal-sized LV, normal LV systolic function, mild concentric LVH, severely dilated RV, mildly hypokinetic RV, m oderately dilated LA, severely dilated RA, moderate to severe tricuspid regurgitation, severe pulmonary hypertension, and RVSP of 65-70 mmHg - Continue to monitor #Acute on chronic hypoxic respiratory failure - etiology: Acute on chronic systolic heart failure - baseline oxygen requirements: 4L nasal cannula - supplemental oxygen: 5 L nasal cannula-should improve as acute heart failure resolves - Continue protocol: continue pulse oximetry, wean oxygen as tolerated, ordered incentive spirometry and educated patient on how to use it and its importance. - continue to monitor #History of pulmonary embolism #Atrial fibrillation Continue home Eliquis 5 mg twice daily, amiodarone 200 mg twice daily #CKD stage III Creatinine 1.8 (baseline 1.61.9) Renally dose medications and avoid nephrotoxic drugs. #Hypertension #Hyperlipidemia - home medications: Atorvastatin 40 mg daily, amlodipine 10 mg daily - current medications: Atorvastatin 40 mg daily, amlodipine 10 mg daily - SBP goal <160 and DBP goal <90 while inpatient - continue to monitor #COPD Continue DuoNebs and albuterol nebs as needed #GERD Continue home pantoprazole 40 mg daily #Normocytic anemia Hemoglobin 9.6 Likely secondary to anemia of chronic disease. Transfuse if hemoglobin <7 or patient become symptomatic. #Arthritis Continue analgesics as needed #Morbid obesity #Weight loss counseling #Exercise counseling - BMI 66.6 - Counseled patient on the importance of weight loss, incorporating exercise, and dietary changes (lean meats, fresh fruits and vegetables, and water intake). Patient expresses understanding. - Time: +15 min Advance Directives: No VTE prophylaxis?: Chemical Plan of care discussed with patient/family: Yes
--- NOTE | 2022-02-27 16:06 | Electrocardiograph Report ---
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
[2022-02-27] MEDS: FUROSEMIDE 40 MG/4 ML INJ IV SCH (22:06)
[2022-02-27] MEDS: DOCUSATE SODIUM 100 MG CAP PO SCH (22:09)
[2022-02-28] MEDS: ASPIRIN 81 MG TAB CHEW PO SCH (10:07)
[2022-02-28] MEDS: GABAPENTIN 300 MG CAP PO SCH (10:07)
[2022-02-28] MEDS: AMIODARONE 200 MG TAB PO SCH (10:07)
[2022-02-28] MEDS: DOCUSATE SODIUM 100 MG CAP PO SCH ×2 (10:07→21:52)
[2022-02-28] MEDS: APIXABAN 5 MG TAB PO SCH ×2 (10:07→21:52)
[2022-02-28] MEDS: amLODIPine 10 MG TAB PO SCH (10:07)
[2022-02-28] MEDS: FUROSEMIDE 40 MG/4 ML INJ IV SCH (10:07)
[2022-02-28] MEDS: PANTOPRAZOLE 40 MG TAB PO SCH (10:09)
--- NOTE | 2022-02-28 10:47 | Electrocardiograph Report ---
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
--- NOTE | 2022-02-28 13:24 | Progress Note ---
Assessment and Plan Assessment and plan: Patient is a 61-year-old female past medical history of morbid obesity, arthritis, chronic systolic heart failure, COPD, hypertension, pulmonary embolism on Eliquis (5 mg twice daily), GERD, and hyperlipidemia presented to the ED with complaints of chest tightness, shortness of breath, and a burning sensation in her upper abdomen. Patient was admitted for heart failure exacerbation and acute on chronic respiratory failure. #Acute on chronic diastolic heart failure #cor pulmonale #moderate to severe tricuspid regurgitation - Continue CHF exacerbation protocol: Telemetry, Strict I/O, monitor urine output every shift, daily weights, afterload reduction, low-sodium diet, and fluid restriction of approximately 1.5 mL/day - lasix discontinued and bumex started - Supplemental oxygen: 4 L nasal cannula - ProBNP on admission: 719 - TTE (01/29/2022) revealing EF 55% with normal-sized LV, normal LV systolic function, mild concentric LVH, severely dilated RV, mildly hypokinetic RV, moderately dilated LA, severely dilated RA, moderate to severe tricuspid regurgitation, severe pulmonary hypertension, and RVSP of 65-70 mmHg - patient to follow up with Pulmonology and Cardiology outpatient #Acute on chronic hypoxic respiratory failure-resolved #Severe pulmonary hypertension - etiology: Acute on chronic systolic heart failure - baseline oxygen requirements: 4L nasal cannula - supplemental oxygen: patient on home O2 requirement - Continue protocol: continue pulse oximetry, wean oxygen as tolerated, ordered incentive spirometry and educated patient on how to use it and its importance. - continue to monitor #History of pulmonary embolism #Paroxysmal Atrial fibrillation Continue home Eliquis 5 mg twice daily, amiodarone 200 mg twice daily #CKD stage III Creatinine 1.6 (baseline 1.61.9) Renally dose medications and avoid nephrotoxic drugs #Self reported tremor -outpatient Neurology follow up #Hypertension #Hyperlipidemia - home medications: Atorvastatin 40 mg daily, amlodipine 10 mg daily - current medications: Atorvastatin 40 mg daily, amlodipine 10 mg daily - SBP goal <160 and DBP goal <90 while inpatient - continue to monitor #COPD Continue DuoNebs and albuterol nebs as needed #GERD Continue home pantoprazole 40 mg daily #Normocytic anemia Hemoglobin 9.6 Likely secondary to anemia of chronic disease. Transfuse if hemoglobin <7 or patient become symptomatic. #Arthritis Continue analgesics as needed #Morbid obesity #Weight loss counseling #Exercise counseling - BMI 66.6 - Counseled patient on the importance of weight loss, incorporating exercise, and dietary changes (lean meats, fresh fruits and vegetables, and water intake). Patient expresses understanding. - Time: +15 min #Advanced care planning -Disease education conducted, care plan discussed, diagnoses discussed, prognosis discussed, and patient acknowledges understanding with care plan -Time: +30 min History Interval history: No acute events overnight. Per patient and nursing she has had 4 bowel movements this morning. Patient reports a feeling of uneasiness in her belly which is too heavy for her to lift. She reports feeling lousy, but has no other complaints at this time. Hospitalist Physical - Physical exam Narrative exam: GENERAL: Obese woman. In no acute distress. HEENT: NC @ 4LPM NECK: Supple. CHEST/LUNGS: Distant breath sounds bilaterally. HEART/CARDIOVASCULAR: RRR. No murmur, rubs or gallops appreciated. ABDOMEN: +Pannus. +BS. NT/ND. SKIN: discoloration of pannus NEURO: No focal motor deficit. Follows all commands. MUSCULOSKELETAL: No joint effusion EXTREMITIES: No cyanosis, clubbing. BLE 1+ pitting edema. PSYCH: Cooperative. - Constitutional Vitals: Temp Pulse Resp BP Pulse Ox 97.9 F 97 H 18 144/69 99 02/28/22 12:14 02/28/22 12:14 02/28/22 12:14 02/28/22 12:14 02/28/22 12:14 General appearance: Present: no acute distress, well-nourished, obese HEART Score - HEART Score EKG: Non-specific Age: 45-65 Risk factors: > 3 risk factors or hx of atherosclerotic disease Troponin: Troponin T 0.022 ng/mL (0.00-0.029) 02/27/22 06:46 Troponin: < normal limit - Critical Actions Critical Actions: 4-6 pts:12-16.6% risk of adverse cardiac event. Should be admitted Results - Labs CBC & Chem 7: 02/27/22 00:33 02/28/22 03:35 Labs: Laboratory Last Values WBC 6.1 K/mm3 (4.5-11.0) 02/27/22 00:33 RBC 3.75 M/mm3 (3.65-5.03) 02/27/22 00:33 Hgb 9.6 gm/dl (10.1-14.3) L 02/27/22 00:33 Hct 33.1 % (30.3-42.9) 02/27/22 00:33 MCV 88 fl (79-97) 02/27/22 00:33 MCH 26 pg (28-32) L 02/27/22 00:33 MCHC 29 % (30-34) L 02/27/22 00:33 RDW 19.5 % (13.2-15.2) H 02/27/22 00:33 Plt Count 314 K/mm3 (140-440) 02/27/22 00:33 Lymph % (Auto) Laborer [place] 02/27/22 00:33 [place] % (Auto) Laborer [place] 02/27/22 00:33 Eos % (Auto) Laborer [place] 02/27/22 00:33 Baso % (Auto) Laborer [place] 02/27/22 00:33 Lymph # (Auto) Laborer [place] 02/27/22 00:33 [place] # (Auto) Laborer [place] 02/27/22 00:33 Eos # (Auto) Laborer [place] 02/27/22 00:33 Baso # (Auto) Laborer [place] 02/27/22 00:33 Seg Neutrophils % Laborer [place] 02/27/22 00:33 Seg Neutrophils # Laborer [place] 02/27/22 00:33 Sodium 144 mmol/L (137-145) 02/28/22 03:35 Potassium 5.0 mmol/L (3.6-5.0) 02/28/22 03:35 Chloride 98.9 mmol/L (98-107) 02/28/22 03:35 Carbon Dioxide 39 mmol/L (22-30) H 02/28/22 03:35 Anion Gap 11 mmol/L 02/28/22 03:35 BUN 29 mg/dL (7-17) H 02/28/22 03:35 Creatinine 1.6 mg/dL (0.6-1.2) H 02/28/22 03:35 Estimated GFR 40 ml/min 02/28/22 03:35 BUN/Creatinine Ratio 18 % 02/28/22 03:35 Glucose 89 mg/dL (65-100) 02/28/22 03:35 Calcium 10.0 mg/dL (8.4-10.2) 02/28/22 03:35 Total Bilirubin 0.30 mg/dL (0.1-1.2) 02/27/22 00:33 AST 17 units/L (5-40) 02/27/22 00:33 ALT 15 units/L (7-56) 02/27/22 00:33 Alkaline Phosphatase 143 units/L (35-129) H 02/27/22 00:33 Troponin T 0.022 ng/mL (0.00-0.029) 02/27/22 06:46 NT-Pro-B Natriuret Pep 719.5 pg/mL (0-900) 02/27/22 08:33 Total Protein 7.1 g/dL (6.3-8.2) 02/27/22 00:33 Albumin 3.1 g/dL (3.9-5) L 02/27/22 00:33 Albumin/Globulin Ratio 0.8 % 02/27/22 00:33 Active Medications - Current Medications Current Medications: Generic Name Dose Route Start Last Admin Trade Name Freq PRN Reason Stop Dose Admin Acetaminophen 650 mg 02/27/22 10:30 Acetaminophen 325 Mg Tab PO Q4H PRN Pain MILD(1-3)/Fever >100.5/CHAVEZ Albuterol 2 puff 02/28/22 14:00 Albuterol 8.5 Gm Mdi Inhalation IH QID PRN Shortness Of Breath Amiodarone HCl 200 mg 02/27/22 11:00 02/28/22 10:07 Amiodarone 200 Mg Tab PO 200 mg QDAY MARCELLA Administration Amlodipine Besylate 10 mg 02/28/22 10:00 02/28/22 10:07 Amlodipine 10 Mg Tab PO 10 mg QDAY MARCELLA Administration Apixaban 5 mg 02/27/22 11:00 02/28/22 10:07 Apixaban 5 Mg Tab PO 5 mg Q12HR MARCELLA Administration Protocol Aspirin 81 mg 02/27/22 11:00 02/28/22 10:07 Aspirin 81 Mg Tab Chew PO 81 mg QDAY MARCELLA Administration Atorvastatin Calcium 40 mg 02/27/22 22:00 02/27/22 22:07 Atorvastatin 40 Mg Tab PO 40 mg QHS MARCELLA Administration Bumetanide 1 mg 03/01/22 10:00 Bumetanide 1 Mg/4 Ml Inj IV QDAY MARCELLA Diltiazem HCl 240 mg 02/28/22 12:00 Diltiazem Cd 240 Mg Cap PO QDAY MARCELLA Docusate Sodium 100 mg 02/27/22 22:00 02/28/22 10:07 Docusate Sodium 100 Mg Cap PO 100 mg BID MARCELLA Administration Fluticasone Propionate 50 mcg 03/01/22 10:00 Fluticasone Propionate Nasal [place] 16 Gm NS QDAY MARCELLA Gabapentin 1,200 mg 02/28/22 14:00 Gabapentin 400 Mg Cap PO TID MARCELLA Loperamide HCl 2 mg 02/28/22 12:00 Loperamide 2 Mg Cap PO Q2H PRN Diarrhea Morphine Sulfate 2 mg 02/27/22 10:30 Morphine 2 Mg/1 Ml Inj IV Q4H PRN Pain , Severe (7-10) Ondansetron HCl 4 mg 02/27/22 10:00 Ondansetron 4 Mg/2 Ml Inj IV Q8H PRN Nausea And Vomiting Oxycodone/Acetaminophen 1 tab 02/27/22 10:30 Oxycodone /Acetaminophen 5-325mg Tab PO Q6H PRN Pain, Moderate (4-6) Pantoprazole Sodium 40 mg 02/28/22 07:30 02/28/22 10:09 Pantoprazole 40 Mg Tab PO 40 mg DAILY@0730 MARCELLA Administration Sodium Chloride 10 ml 02/27/22 11:00 02/28/22 10:09 Sodium Chloride 0.9% 10 Ml Flush Syringe IV 10 ml BID MARCELLA Administration Sodium Chloride 10 ml 02/27/22 11:00 Sodium Chloride 0.9% 10 Ml Flush Syringe IV PRN PRN LINE FLUSH
--- NOTE | 2022-02-28 13:41 | Consultation ---
History of Present Illness Consult date: 02/28/22 Reason for Consult: Worsening Tremors Past History Past Medical History: arthritis, COPD, GERD, heart failure, hyperlipidemia, pulmonary embolism (On Eliquis 5 mg twice daily) Past Surgical History: , Other (Gastric bypass (2006)) Social history: lives with family, full code Family history: hypertension Medications and Allergies Allergies Allergy/AdvReac Type Severity Reaction Status Date / Time levofloxacin [From Levaquin] Allergy Itching Verified 02/28/22 09:28 egg AdvReac Severe Hives, Verified 02/28/22 09:28 NAUSEA Home Medications Medication Instructions Recorded Confirmed Last Taken Type Amiodarone [Cordarone 200 MG TAB] 200 mg PO QDAY tablet 02/01/22 02/28/22 Unknown Rx Apixaban [Eliquis] 5 mg PO Q12HR tablet 02/01/22 02/28/22 Unknown Rx Ascorbic Acid [Vitamin C] 500 mg PO BID tablet 02/01/22 02/28/22 Unknown Rx Aspirin [Aspirin BABY CHEW TAB] 81 mg PO QDAY tab.chew 02/01/22 02/28/22 Unknown Rx AtorvaSTATin [Lipitor] 40 mg PO QHS tablet 02/01/22 02/28/22 Unknown Rx Albuterol Mdi (or & Nicu Only) 2 puff IH QID PRN 02/28/22 02/28/22 Unknown History [ProAir HFA Inhaler] Famotidine [Acid Controller] 20 mg PO QDAY 02/28/22 02/28/22 Unknown History Fluticasone [Flonase] 1 spray NS QDAY 02/28/22 02/28/22 Unknown History Furosemide [Lasix TAB] 40 mg PO QDAY 02/28/22 02/28/22 Unknown History Gabapentin [Neurontin] 1,200 mg PO TID 02/28/22 02/28/22 Unknown History HYDROcodone/APAP 5-325 [[place] 1 each PO TID PRN 02/28/22 02/28/22 Unknown History 5/325] dilTIAZem CD [Cardizem Cd] 240 mg PO QDAY 02/28/22 02/28/22 Unknown History Active Meds: Active Medications Acetaminophen (Acetaminophen 325 Mg Tab) 650 mg PO Q4H PRN PRN Reason: Pain MILD(1-3)/Fever >100.5/CHAVEZ Albuterol (Albuterol 8.5 Gm Mdi Inhalation) 2 puff IH QID PRN PRN Reason: Shortness Of Breath Amiodarone HCl (Amiodarone 200 Mg Tab) 200 mg PO QDAY [facility] Last Admin: 02/28/22 10:07 Dose: 200 mg Amlodipine Besylate (Amlodipine 10 Mg Tab) 10 mg PO QDAY [facility] Last Admin: 02/28/22 10:07 Dose: 10 mg Apixaban (Apixaban 5 Mg Tab) 5 mg PO Q12HR [facility]; Protocol Last Admin: 02/28/22 10:07 Dose: 5 mg Aspirin (Aspirin 81 Mg Tab Chew) 81 mg PO QDAY [facility] Last Admin: 02/28/22 10:07 Dose: 81 mg Atorvastatin Calcium (Atorvastatin 40 Mg Tab) 40 mg PO QHS [facility] Last Admin: 02/27/22 22:07 Dose: 40 mg Bumetanide (Bumetanide 1 Mg/4 Ml Inj) 1 mg IV QDAY [facility] Diltiazem HCl (Diltiazem Cd 240 Mg Cap) 240 mg PO QDAY [facility] Docusate Sodium (Docusate Sodium 100 Mg Cap) 100 mg PO BID [facility] Last Admin: 02/28/22 10:07 Dose: 100 mg Fluticasone Propionate (Fluticasone Propionate Nasal [place] 16 Gm) 50 mcg NS QDAY [facility] Gabapentin (Gabapentin 400 Mg Cap) 1,200 mg PO TID [facility] Loperamide HCl (Loperamide 2 Mg Cap) 2 mg PO Q2H PRN PRN Reason: Diarrhea Morphine Sulfate (Morphine 2 Mg/1 Ml Inj) 2 mg IV Q4H PRN PRN Reason: Pain , Severe (7-10) Ondansetron HCl (Ondansetron 4 Mg/2 Ml Inj) 4 mg IV Q8H PRN PRN Reason: Nausea And Vomiting Oxycodone/Acetaminophen (Oxycodone /Acetaminophen 5-325mg Tab) 1 tab PO Q6H PRN PRN Reason: Pain, Moderate (4-6) Pantoprazole Sodium (Pantoprazole 40 Mg Tab) 40 mg PO DAILY@0730 [facility] Last Admin: 02/28/22 10:09 Dose: 40 mg Sodium Chloride (Sodium Chloride 0.9% 10 Ml Flush Syringe) 10 ml IV BID [facility] Last Admin: 02/28/22 10:09 Dose: 10 ml Sodium Chloride (Sodium Chloride 0.9% 10 Ml Flush Syringe) 10 ml IV PRN PRN PRN Reason: LINE FLUSH Physical Examination - Vital Signs Vital Signs: Vital Signs Temp Pulse Resp BP Pulse Ox 98 F 88 18 134/78 97 02/26/22 23:06 02/26/22 23:06 02/26/22 23:06 02/26/22 23:06 02/26/22 23:06 Results - Laboratory Findings CBC and BMP: 02/27/22 00:33 02/28/22 03:35 Abnormal Lab Findings: Abnormal Labs 02/27/22 02/27/22 02/28/22 00:33 00:33 03:35 Hgb 9.6 L MCH 26 L MCHC 29 L RDW 19.5 H Chloride 97.5 L Carbon Dioxide 34 H 39 H BUN 33 H 29 H Creatinine 1.8 H 1.6 H Alkaline Phosphatase 143 H Albumin 3.1 L Assessment and Plan Tremors - recommend outpatient evaluation with Neurology in 2-4 weeks as I am not able to assess tremors via teleneurology. Armando Perdomo MD Neurology
[2022-02-28] MEDS: GABAPENTIN 400 MG CAP PO SCH ×2 (13:54→21:51)
[2022-02-28] MEDS: dilTIAZem CD 240 MG CAP PO SCH (13:55)
[2022-02-28] MEDS ORDERED: ALBUTEROL 8.5 GM MDI INHALATION IH PRN (14:00)
[2022-02-28] MEDS ORDERED: NON-FORMULARY EACH (Gabapentin [Neurontin] 800 MG Tablet) PO SCH (14:00)
[2022-02-28] MEDS: LOPERAMIDE 2 MG CAP PO PRN ×2 (14:01→21:51)
[2022-03-01] MEDS: LOPERAMIDE 2 MG CAP PO PRN (09:27)
[2022-03-01] MEDS: ASPIRIN 81 MG TAB CHEW PO SCH (09:27)
[2022-03-01] MEDS: PANTOPRAZOLE 40 MG TAB PO SCH (09:28)
[2022-03-01] MEDS: dilTIAZem CD 240 MG CAP PO SCH (09:28)
[2022-03-01] MEDS: DOCUSATE SODIUM 100 MG CAP PO SCH ×2 (09:28→22:09)
[2022-03-01] MEDS: amLODIPine 10 MG TAB PO SCH (09:28)
[2022-03-01] MEDS: GABAPENTIN 400 MG CAP PO SCH ×3 (09:28→22:08)
[2022-03-01] MEDS: FLUTICASONE PROPIONATE NASAL SPRAY 16 GM NS SCH (09:29)
[2022-03-01] MEDS: APIXABAN 5 MG TAB PO SCH ×2 (09:29→22:08)
[2022-03-01] MEDS: AMIODARONE 200 MG TAB PO SCH (09:29)
[2022-03-01] MEDS ORDERED: BUMETANIDE 1 MG/4 ML INJ IV SCH (10:00)
--- NOTE | 2022-03-01 11:13 | Progress Note ---
Assessment and Plan Assessment and plan: Patient is a 61-year-old female past medical history of morbid obesity, arthritis, chronic systolic heart failure, COPD, hypertension, pulmonary embolism on Eliquis (5 mg twice daily), GERD, and hyperlipidemia presented to the ED with complaints of chest tightness, shortness of breath, and a burning sensation in her upper abdomen. Patient was admitted for heart failure exacerbation and acute on chronic respiratory failure. #Acute on chronic diastolic heart failure-improving #cor pulmonale #moderate to severe tricuspid regurgitation - Continue CHF exacerbation protocol: Telemetry, Strict I/O, monitor urine output every shift, daily weights, afterload reduction, low-sodium diet, and fluid restriction of approximately 1.5 mL/day - lasix discontinued and bumex started - Supplemental oxygen: 4 L nasal cannula - ProBNP on admission: 719 - TTE (01/29/2022) revealing EF 55% with normal-sized LV, normal LV systolic function, mild concentric LVH, severely dilated RV, mildly hypokinetic RV, moderately dilated LA, severely dilated RA, moderate to severe tricuspid regur gitation, severe pulmonary hypertension, and RVSP of 65-70 mmHg - patient to follow up with Pulmonology and Cardiology outpatient #Acute on chronic hypoxic respiratory failure-resolved #Severe pulmonary hypertension - etiology: Acute on chronic systolic heart failure - baseline oxygen requirements: 4L nasal cannula - supplemental oxygen: patient on home O2 requirement - Continue protocol: continue pulse oximetry, wean oxygen as tolerated, ordered incentive spirometry and educated patient on how to use it and its importance. - continue to monitor #History of pulmonary embolism #Paroxysmal Atrial fibrillation Continue home Eliquis 5 mg twice daily, amiodarone 200 mg twice daily #CKD stage III Creatinine 1.6 (baseline 1.61.9) Renally dose medications and avoid nephrotoxic drugs #Self reported tremor -outpatient Neurology follow up #Hypertension #Hyperlipidemia - home medications: Atorvastatin 40 mg daily, amlodipine 10 mg daily - current medications: Atorvastatin 40 mg daily, amlodipine 10 mg daily - SBP goal <160 and DBP goal <90 while inpatient - continue to monitor #COPD Continue DuoNebs and albuterol nebs as needed #GERD Continue home pantoprazole 40 mg daily #Normocytic anemia Hemoglobin 9.6 Likely secondary to anemia of chronic disease. Transfuse if hemoglobin <7 or patient become symptomatic. #Arthritis Continue analgesics as needed #Morbid obesity #Weight loss counseling #Exercise counseling - BMI 66.6 - Counseled patient on the importance of weight loss, incorporating exercise, and dietary changes (lean meats, fresh fruits and vegetables, and water intake). Patient expresses understanding. - Time: +15 min #Advanced care planning -Disease education conducted, care plan discussed, diagnoses discussed, prog nosis discussed, and patient acknowledges understanding with care plan -Time: +30 min #Discharge planning -Patient primary caregiver is unable to accept patient at this time. Anticipate discharge tomorrow with resumption of home health services. History Interval history: No acute events overnight. Patient is concerned about returning home since her main help (daughter) just had abdominal surgery. She has no other complaints at this time. Hospitalist Physical - Physical exam Narrative exam: GENERAL: Obese woman. In no acute distress. HEENT: NC @ 4LPM NECK: Supple. CHEST/LUNGS: Distant breath sounds bilaterally. HEART/CARDIOVASCULAR: RRR. No murmur, rubs or gallops appreciated. ABDOMEN: +Pannus. +BS. NT/ND. SKIN: discoloration of pannus NEURO: No focal motor deficit. Follows all commands. MUSCULOSKELETAL: No joint effusion EXTREMITIES: No cyanosis, clubbing. BLE 1+ pitting edema. PSYCH: Cooperative. - Constitutional Vitals: Temp Pulse Resp BP Pulse Ox 98.4 F 89 18 117/61 95 03/01/22 07:40 03/01/22 07:40 03/01/22 07:40 03/01/22 07:40 03/01/22 07:40 General appearance: Present: no acute distress, well-nourished, obese HEART Score - HEART Score EKG: Non-specific Age: 45-65 Risk factors: > 3 risk factors or hx of atherosclerotic disease Troponin: Troponin T 0.022 ng/mL (0.00-0.029) 02/27/22 06:46 Troponin: < normal limit - Critical Actions Critical Actions: 4-6 pts:12-16.6% risk of adverse cardiac event. Should be admitted Results - Labs CBC & Chem 7: 02/27/22 00:33 02/28/22 03:35 Labs: Laboratory Last Values WBC 6.1 K/mm3 (4.5-11.0) 02/27/22 00:33 RBC 3.75 M/mm3 (3.65-5.03) 02/27/22 00:33 Hgb 9.6 gm/dl (10.1-14.3) L 02/27/22 00:33 Hct 33.1 % (30.3-42.9) 02/27/22 00:33 MCV 88 fl (79-97) 02/27/22 00:33 MCH 26 pg (28-32) L 02/27/22 00:33 MCHC 29 % (30-34) L 02/27/22 00:33 RDW 19.5 % (13.2-15.2) H 02/27/22 00:33 Plt Count 314 K/mm3 (140-440) 02/27/22 00:33 Lymph % (Auto) Psychiatric Nurse Practitioner 02/27/22 00:33 [place] % (Auto) Psychiatric Nurse Practitioner 02/27/22 00:33 Eos % (Auto) Psychiatric Nurse Practitioner 02/27/22 00:33 Baso % (Auto) Psychiatric Nurse Practitioner 02/27/22 00:33 Lymph # (Auto) Psychiatric Nurse Practitioner 02/27/22 00:33 [place] # (Auto) Psychiatric Nurse Practitioner 02/27/22 00:33 Eos # (Auto) Psychiatric Nurse Practitioner 02/27/22 00:33 Baso # (Auto) Psychiatric Nurse Practitioner 02/27/22 00:33 Seg Neutrophils % Psychiatric Nurse Practitioner 02/27/22 00:33 Seg Neutrophils # Psychiatric Nurse Practitioner 02/27/22 00:33 Sodium 144 mmol/L (137-145) 02/28/22 03:35 Potassium 5.0 mmol/L (3.6-5.0) 02/28/22 03:35 Chloride 98.9 mmol/L (98-107) 02/28/22 03:35 Carbon Dioxide 39 mmol/L (22-30) H 02/28/22 03:35 Anion Gap 11 mmol/L 02/28/22 03:35 BUN 29 mg/dL (7-17) H 02/28/22 03:35 Creatinine 1.6 mg/dL (0.6-1.2) H 02/28/22 03:35 Estimated GFR 40 ml/min 02/28/22 03:35 BUN/Creatinine Ratio 18 % 02/28/22 03:35 Glucose 89 mg/dL (65-100) 02/28/22 03:35 Calcium 10.0 mg/dL (8.4-10.2) 02/28/22 03:35 Total Bilirubin 0.30 mg/dL (0.1-1.2) 02/27/22 00:33 AST 17 units/L (5-40) 02/27/22 00:33 ALT 15 units/L (7-56) 02/27/22 00:33 Alkaline Phosphatase 143 units/L (35-129) H 02/27/22 00:33 Troponin T 0.022 ng/mL (0.00-0.029) 02/27/22 06:46 NT-Pro-B Natriuret Pep 719.5 pg/mL (0-900) 02/27/22 08:33 Total Protein 7.1 g/dL (6.3-8.2) 02/27/22 00:33 Albumin 3.1 g/dL (3.9-5) L 02/27/22 00:33 Albumin/Globulin Ratio 0.8 % 02/27/22 00:33 Small/IV: Voiding Method External Female Catheter Active Medications - Current Medications Current Medications: Generic Name Dose Route Start Last Admin Trade Name Freq PRN Reason Stop Dose Admin Acetaminophen 650 mg 02/27/22 10:30 Acetaminophen 325 Mg Tab PO Q4H PRN Pain MILD(1-3)/Fever >100.5/CHAVEZ Albuterol 2 puff 02/28/22 14:00 Albuterol 8.5 Gm Mdi Inhalation IH QID PRN Shortness Of Breath Amiodarone HCl 200 mg 02/27/22 11:00 03/01/22 09:29 Amiodarone 200 Mg Tab PO 200 mg QDAY MARCELLA Administration Amlodipine Besylate 10 mg 02/28/22 10:00 03/01/22 09:28 Amlodipine 10 Mg Tab PO 10 mg QDAY MARCELLA Administration Apixaban 5 mg 02/27/22 11:00 03/01/22 09:29 Apixaban 5 Mg Tab PO 5 mg Q12HR MARCELLA Administration Protocol Aspirin 81 mg 02/27/22 11:00 03/01/22 09:27 Aspirin 81 Mg Tab Chew PO 81 mg QDAY MARCELLA Administration Atorvastatin Calcium 40 mg 02/27/22 22:00 02/28/22 21:51 Atorvastatin 40 Mg Tab PO 40 mg QHS MARCELLA Administration Bumetanide 1 mg 03/01/22 10:00 03/01/22 09:27 Bumetanide 1 Mg/4 Ml Inj IV 1 mg QDAY MARCELLA Administration Diltiazem HCl 240 mg 02/28/22 12:00 03/01/22 09:28 Diltiazem Cd 240 Mg Cap PO 240 mg QDAY MARCELLA Administration Docusate Sodium 100 mg 02/27/22 22:00 03/01/22 09:28 Docusate Sodium 100 Mg Cap PO Not Given BID MARCELLA Fluticasone Propionate 50 mcg 03/01/22 10:00 03/01/22 09:29 Fluticasone Propionate Nasal [place] 16 Gm NS 50 mcg QDAY MARCELLA Administration Gabapentin 1,200 mg 02/28/22 14:00 03/01/22 09:28 Gabapentin 400 Mg Cap PO 1,200 mg TID MARCELLA Administration Loperamide HCl 2 mg 02/28/22 12:00 03/01/22 09:27 Loperamide 2 Mg Cap PO 2 mg Q2H PRN Administration Diarrhea Morphine Sulfate 2 mg 02/27/22 10:30 Morphine 2 Mg/1 Ml Inj IV Q4H PRN Pain , Severe (7-10) Ondansetron HCl 4 mg 02/27/22 10:00 Ondansetron 4 Mg/2 Ml Inj IV Q8H PRN Nausea And Vomiting Oxycodone/Acetaminophen 1 tab 02/27/22 10:30 Oxycodone /Acetaminophen 5-325mg Tab PO Q6H PRN Pain, Moderate (4-6) Pantoprazole Sodium 40 mg 02/28/22 07:30 03/01/22 09:28 Pantoprazole 40 Mg Tab PO 40 mg DAILY@0730 MARCELLA Administration Sodium Chloride 10 ml 02/27/22 11:00 03/01/22 09:30 Sodium Chloride 0.9% 10 Ml Flush Syringe IV 10 ml BID MARCELLA Administration Sodium Chloride 10 ml 02/27/22 11:00 Sodium Chloride 0.9% 10 Ml Flush Syringe IV PRN PRN LINE FLUSH
[2022-03-02 07:55] LABS: Calcium 9.6 mg/dL (8.4-10.2)
[2022-03-02] MEDS ORDERED: DEXTROSE 50% IN WATER (25GM) 50 ML SYRINGE IV NR (08:15)
[2022-03-02] MEDS ORDERED: INSULIN REGULAR, HUMAN 100 UNITS/1 ML IV NR (08:30)
[2022-03-02] MEDS ORDERED: CALCIUM CHLORIDE 1,000 MG in SODIUM CHLORIDE 0.9% 100 ML IV ONE (09:30)
[2022-03-02] MEDS: FLUTICASONE PROPIONATE NASAL SPRAY 16 GM NS SCH (10:11)
[2022-03-02] MEDS: FUROSEMIDE 40 MG TAB PO SCH (10:12)
[2022-03-02] MEDS: dilTIAZem CD 240 MG CAP PO SCH (10:12)
[2022-03-02] MEDS: AMIODARONE 200 MG TAB PO SCH (10:12)
[2022-03-02] MEDS: amLODIPine 10 MG TAB PO SCH (10:12)
[2022-03-02] MEDS: ASPIRIN 81 MG TAB CHEW PO SCH (10:12)
[2022-03-02] MEDS: DOCUSATE SODIUM 100 MG CAP PO SCH ×2 (10:13→21:39)
[2022-03-02] MEDS: APIXABAN 5 MG TAB PO SCH ×2 (10:19→21:39)
[2022-03-02] MEDS: GABAPENTIN 400 MG CAP PO SCH ×3 (10:22→20:50)
[2022-03-02] MEDS: PANTOPRAZOLE 40 MG TAB PO SCH (10:23)
--- NOTE | 2022-03-02 10:34 | Discharge Summary ---
Providers - Providers Date of Admission: 02/27/22 09:13 Date of discharge: 03/02/22 Attending physician: NICKY CHANDRA MD 02/27/22 15:53 Consult to Physician [CONS] Routine Comment: Consulting Provider: NEETA HDZ Physician Instructions: Reason For Exam: Worsening tremors of b/l upper extremities 02/28/22 07:38 Physical Therapy Evaluation and Treat [CONS] Routine Comment: Reason For Exam: Assess gait and mobility Primary care physician: AKUA WINTER MD Hospitalization Condition: Stable Disposition: 30 STILL A PATIENT Core Measure Documentation - Palliative Care Palliative Care/ Comfort Measures: Not Applicable Exam - Constitutional Vitals: Temp Pulse Resp BP Pulse Ox 97.8 F 95 H 18 113/66 92 03/02/22 08:00 03/02/22 08:00 03/02/22 08:00 03/02/22 08:00 03/02/22 08:00 Plan Care Plan Goals: Please follow with your primary care provider and director script at discharge. Please have your primary care provider to refer you to a neurologist to evaluate your upper extremity tremors. We will refer you to our bariatric surgeon Dr. Quintero for evaluation for weight loss surgery. Losing weight will greatly improve your quality of life. Follow up with: AKUA WINTER MD [Primary Care Provider] - 3-5 Days AMARJIT QUINTERO MD [Staff Physician] - 10 Days Prescriptions: AtorvaSTATin [Lipitor] 40 mg PO QHS 30 Days #30 tablet Aspirin [Aspirin BABY CHEW TAB] 81 mg PO QDAY 30 Days #30 tab.chew dilTIAZem CD [Cardizem CD] 240 mg PO QDAY 30 Days #30 cap Furosemide [Lasix TAB] 40 mg PO QDAY 30 Days #30 tab
--- NOTE | 2022-03-02 15:19 | Progress Note ---
Assessment and Plan Assessment and plan: Patient is a 61-year-old female past medical history of morbid obesity, arthritis, chronic systolic heart failure, COPD, hypertension, pulmonary embolism on Eliquis (5 mg twice daily), GERD, and hyperlipidemia presented to the ED with complaints of chest tightness, shortness of breath, and a burning sensation in her upper abdomen. Patient was admitted for heart failure exacerbation and acute on chronic respiratory failure. #Acute on chronic diastolic heart failure-improving #cor pulmonale #moderate to severe tricuspid regurgitation - Continue CHF exacerbation protocol: Telemetry, Strict I/O, monitor urine output every shift, daily weights, afterload reduction, low-sodium diet, and fluid restriction of approximately 1.5 mL/day - PO lasix resumed at home dose - Supplemental oxygen: 4 L nasal cannula - ProBNP on admission: 719 - TTE (01/29/2022) revealing EF 55% with normal-sized LV, normal LV systolic function, mild concentric LVH, severely dilated RV, mildly hypokinetic RV, moderately dilated LA, severely dilated RA, moderate to severe tricuspid regurgitation, severe pulmonary hypertension, and RVSP of 65-70 mmHg - patient to follow up with Pulmonology and Cardiology outpatient #Hyperkalemia -K 5.5 -insulin, D50W and calcium gluconate given -repeat ordered #Acute on chronic hypoxic respiratory failure-resolved #Severe pulmonary hypertension - etiology: Acute on chronic systolic heart failure - baseline oxygen requirements: 4L nasal cannula - supplemental oxygen: patient on home O2 requirement - Continue protocol: continue pulse oximetry, wean oxygen as tolerated, ordered incentive spirometry and educated patient on how to use it and its importance. - continue to monitor #History of pulmonary embolism #Paroxysmal Atrial fibrillation Continue home Eliquis 5 mg twice daily, amiodarone 200 mg twice daily #CKD stage III Creatinine 1.6 (baseline 1.61.9) Renally dose medications and avoid nephrotoxic drugs #Self reported tremor -outpatient Neurology follow up #Hypertension #Hyperlipidemia - home medications: Atorvastatin 40 mg daily, amlodipine 10 mg daily - current medications: Atorvastatin 40 mg daily, amlodipine 10 mg daily - SBP goal <160 and DBP goal <90 while inpatient - continue to monitor #COPD Continue DuoNebs and albuterol nebs as needed #GERD Continue home pantoprazole 40 mg daily #Normocytic anemia Hemoglobin 9.6 Likely secondary to anemia of chronic disease. Transfuse if hemoglobin <7 or patient become symptomatic. #Arthritis Continue analgesics as needed #Morbid obesity #Weight loss counseling #Exercise counseling - BMI 66.6 - Counseled patient on the importance of weight loss, incorporating exercise, and dietary changes (lean meats, fresh fruits and vegetables, and water intake). Patient expresses understanding. - Time: +15 min #Advanced care planning -Disease education conducted, care plan discussed, diagnoses discussed, prognosis discussed, and patient acknowledges understanding with care plan -Time: +30 min #Discharge planning -Patient primary caregiver is unable to accept patient at this time. Anticipate discharge in near future with resumption of home health services. History Interval history: No acute events overnight. Patient has no complaints besides her foot being itchy. She was updated about current care plan. Hospitalist Physical - Physical exam Narrative exam: GENERAL: Obese woman. In no acute distress. HEENT: NC @ 4LPM NECK: Supple. CHEST/LUNGS: Distant breath sounds bilaterally. HEART/CARDIOVASCULAR: RRR. No murmur, rubs or gallops appreciated. ABDOMEN: +Pannus. +BS. NT/ND. SKIN: discoloration of pannus NEURO: No focal motor deficit. Follows all commands. MUSCULOSKELETAL: No joint effusion EXTREMITIES: No cyanosis, clubbing. BLE 1+ pitting edema. PSYCH: Cooperative. - Constitutional Vitals: Temp Pulse Resp BP Pulse Ox 97.8 F 89 18 113/66 92 03/02/22 08:00 03/02/22 13:46 03/02/22 10:00 03/02/22 08:00 03/02/22 10:00 General appearance: Present: no acute distress, well-nourished, obese HEART Score - HEART Score EKG: Non-specific Age: 45-65 Risk factors: > 3 risk factors or hx of atherosclerotic disease Troponin: Troponin T 0.022 ng/mL (0.00-0.029) 02/27/22 06:46 Troponin: < normal limit - Critical Actions Critical Actions: 4-6 pts:12-16.6% risk of adverse cardiac event. Should be admitted Results - Labs CBC & Chem 7: 02/27/22 00:33 03/02/22 06:42 Labs: Laboratory Last Values WBC 6.1 K/mm3 (4.5-11.0) 02/27/22 00:33 RBC 3.75 M/mm3 (3.65-5.03) 02/27/22 00:33 Hgb 9.6 gm/dl (10.1-14.3) L 02/27/22 00:33 Hct 33.1 % (30.3-42.9) 02/27/22 00:33 MCV 88 fl (79-97) 02/27/22 00:33 MCH 26 pg (28-32) L 02/27/22 00:33 MCHC 29 % (30-34) L 02/27/22 00:33 RDW 19.5 % (13.2-15.2) H 02/27/22 00:33 Plt Count 314 K/mm3 (140-440) 02/27/22 00:33 Lymph % (Auto) Getter Welder 02/27/22 00:33 [place] % (Auto) Getter Welder 02/27/22 00:33 Eos % (Auto) Getter Welder 02/27/22 00:33 Baso % (Auto) Getter Welder 02/27/22 00:33 Lymph # (Auto) Getter Welder 02/27/22 00:33 [place] # (Auto) Getter Welder 02/27/22 00:33 Eos # (Auto) Getter Welder 02/27/22 00:33 Baso # (Auto) Getter Welder 02/27/22 00:33 Seg Neutrophils % Getter Welder 02/27/22 00:33 Seg Neutrophils # Getter Welder 02/27/22 00:33 Sodium 145 mmol/L (137-145) 03/02/22 06:42 Potassium 5.5 mmol/L (3.6-5.0) H 03/02/22 06:42 Chloride 97.6 mmol/L (98-107) L 03/02/22 06:42 Carbon Dioxide 44 mmol/L (22-30) H* 03/02/22 06:42 Anion Gap 9 mmol/L 03/02/22 06:42 BUN 19 mg/dL (7-17) H 03/02/22 06:42 Creatinine 1.5 mg/dL (0.6-1.2) H 03/02/22 06:42 Estimated GFR 43 ml/min 03/02/22 06:42 BUN/Creatinine Ratio 13 % 03/02/22 06:42 Glucose 80 mg/dL (65-100) 03/02/22 06:42 Calcium 9.6 mg/dL (8.4-10.2) 03/02/22 06:42 Total Bilirubin 0.30 mg/dL (0.1-1.2) 02/27/22 00:33 AST 17 units/L (5-40) 02/27/22 00:33 ALT 15 units/L (7-56) 02/27/22 00:33 Alkaline Phosphatase 143 units/L (35-129) H 02/27/22 00:33 Troponin T 0.022 ng/mL (0.00-0.029) 02/27/22 06:46 NT-Pro-B Natriuret Pep 719.5 pg/mL (0-900) 02/27/22 08:33 Total Protein 7.1 g/dL (6.3-8.2) 02/27/22 00:33 Albumin 3.1 g/dL (3.9-5) L 02/27/22 00:33 Albumin/Globulin Ratio 0.8 % 02/27/22 00:33 Small/IV: Voiding Method External Female Catheter Active Medications - Current Medications Current Medications: Generic Name Dose Route Start Last Admin Trade Name Freq PRN Reason Stop Dose Admin Acetaminophen 650 mg 02/27/22 10:30 Acetaminophen 325 Mg Tab PO Q4H PRN Pain MILD(1-3)/Fever >100.5/CHAVEZ Albuterol 2 puff 02/28/22 14:00 Albuterol 8.5 Gm Mdi Inhalation IH QID PRN Shortness Of Breath Amiodarone HCl 200 mg 02/27/22 11:00 03/02/22 10:12 Amiodarone 200 Mg Tab PO 200 mg QDAY MARCELLA Administration Amlodipine Besylate 10 mg 02/28/22 10:00 03/02/22 10:12 Amlodipine 10 Mg Tab PO 10 mg QDAY MARCELLA Administration Apixaban 5 mg 02/27/22 11:00 03/02/22 10:19 Apixaban 5 Mg Tab PO 5 mg Q12HR MARCELLA Administration Protocol Aspirin 81 mg 02/27/22 11:00 03/02/22 10:12 Aspirin 81 Mg Tab Chew PO 81 mg QDAY MARCELLA Administration Atorvastatin Calcium 40 mg 02/27/22 22:00 03/01/22 22:08 Atorvastatin 40 Mg Tab PO 40 mg QHS MARCELLA Administration Diltiazem HCl 240 mg 02/28/22 12:00 03/02/22 10:12 Diltiazem Cd 240 Mg Cap PO 240 mg QDAY MARCELLA Administration Docusate Sodium 100 mg 02/27/22 22:00 03/02/22 10:13 Docusate Sodium 100 Mg Cap PO Not Given BID MARCELLA Fluticasone Propionate 50 mcg 03/01/22 10:00 03/02/22 10:11 Fluticasone Propionate Nasal [place] 16 Gm NS 50 mcg QDAY MARCELLA Administration Furosemide 40 mg 03/02/22 10:00 03/02/22 10:12 Furosemide 40 Mg Tab PO 40 mg QDAY MARCELLA Administration Gabapentin 1,200 mg 02/28/22 14:00 03/02/22 10:22 Gabapentin 400 Mg Cap PO 1,200 mg TID MARCELLA Administration Loperamide HCl 2 mg 02/28/22 12:00 03/01/22 09:27 Loperamide 2 Mg Cap PO 2 mg Q2H PRN Administration Diarrhea Morphine Sulfate 2 mg 02/27/22 10:30 Morphine 2 Mg/1 Ml Inj IV Q4H PRN Pain , Severe (7-10) Ondansetron HCl 4 mg 02/27/22 10:00 Ondansetron 4 Mg/2 Ml Inj IV Q8H PRN Nausea And Vomiting Oxycodone/Acetaminophen 1 tab 02/27/22 10:30 Oxycodone /Acetaminophen 5-325mg Tab PO Q6H PRN Pain, Moderate (4-6) Pantoprazole Sodium 40 mg 02/28/22 07:30 03/02/22 10:23 Pantoprazole 40 Mg Tab PO 40 mg DAILY@0730 MARCELLA Administration Sodium Chloride 10 ml 02/27/22 11:00 03/02/22 10:09 Sodium Chloride 0.9% 10 Ml Flush Syringe IV 10 ml BID MARCELLA Administration Sodium Chloride 10 ml 02/27/22 11:00 Sodium Chloride 0.9% 10 Ml Flush Syringe IV PRN PRN LINE FLUSH
[2022-03-03 04:34] LABS: Calcium 9.7 mg/dL (8.4-10.2)
[2022-03-03] MEDS: FLUTICASONE PROPIONATE NASAL SPRAY 16 GM NS SCH (10:19)
[2022-03-03] MEDS: APIXABAN 5 MG TAB PO SCH ×2 (10:20→21:31)
[2022-03-03] MEDS: ASPIRIN 81 MG TAB CHEW PO SCH (10:20)
[2022-03-03] MEDS: amLODIPine 10 MG TAB PO SCH (10:20)
[2022-03-03] MEDS: AMIODARONE 200 MG TAB PO SCH (10:20)
[2022-03-03] MEDS: FUROSEMIDE 40 MG TAB PO SCH (10:20)
[2022-03-03] MEDS: dilTIAZem CD 240 MG CAP PO SCH (10:21)
--- NOTE | 2022-03-03 15:19 | Progress Note ---
Assessment and Plan Assessment and plan: Patient is a 61-year-old female past medical history of morbid obesity, arthritis, chronic systolic heart failure, COPD, hypertension, pulmonary embolism on Eliquis (5 mg twice daily), GERD, and hyperlipidemia presented to the ED with complaints of chest tightness, shortness of breath, and a burning sensation in her upper abdomen. Patient was admitted for heart failure exacerbation and acute on chronic respiratory failure. #Acute on chronic diastolic heart failure-improving #cor pulmonale #moderate to severe tricuspid regurgitation - Continue CHF exacerbation protocol: Telemetry, Strict I/O, monitor urine output every shift, daily weights, afterload reduction, low-sodium diet, and fluid restriction of approximately 1.5 mL/day - continue PO lasix - Supplemental oxygen: 4 L nasal cannula - ProBNP on admission: 719 - TTE (01/29/2022) revealing EF 55% with normal-sized LV, normal LV systolic function, mild concentric LVH, severely dilated RV, mildly hypokinetic RV, moderately dilated LA, severely dilated RA, moderate to severe tricuspid regurgitation, severe pulmonary hypertension, and RVSP of 65-70 mmHg - patient to follow up with Pulmonology and Cardiology outpatient #Hyperkalemia -insulin, D50W and calcium gluconate given -will continue to monitor and treat #Acute on chronic hypoxic respiratory failure-resolved #Severe pulmonary hypertension - etiology: Acute on chronic systolic heart failure - baseline oxygen requirements: 4L nasal cannula - supplemental oxygen: patient on home O2 requirement - Continue protocol: continue pulse oximetry, wean oxygen as tolerated, ordered incentive spirometry and educated patient on how to use it and its importance. - continue to monitor #History of pulmonary embolism #Paroxysmal Atrial fibrillation Continue home Eliquis 5 mg twice daily, amiodarone 200 mg twice daily #CKD stage III Creatinine 1.5 (baseline 1.61.9) Renally dose medications and avoid nephrotoxic drugs #Metabolic alkalosis -likely secondary to diuretic use #Self reported tremor -outpatient Neurology follow up #Hypertension #Hyperlipidemia - home medications: Atorvastatin 40 mg daily, amlodipine 10 mg daily - current medications: Atorvastatin 40 mg daily, amlodipine 10 mg daily - SBP goal <160 and DBP goal <90 while inpatient - continue to monitor #COPD Continue DuoNebs and albuterol nebs as needed #GERD Continue home pantoprazole 40 mg daily #Normocytic anemia Hemoglobin 9.6 Likely secondary to anemia of chronic disease. Transfuse if hemoglobin <7 or patient become symptomatic. #Arthritis Continue analgesics as needed #Morbid obesity #Weight loss counseling #Exercise counseling - BMI 66.6 - Counseled patient on the importance of weight loss, incorporating exercise, and dietary changes (lean meats, fresh fruits and vegetables, and water intake). Patient expresses understanding. - Time: +15 min #Advanced care planning -Disease education conducted, care plan discussed, diagnoses discussed, prognosis discussed, and patient acknowledges understanding with care plan -Time: +30 min #Discharge planning -Patient primary caregiver is unable to accept patient at this time. Anticipate discharge in near future with resumption of home health services. Also pending bariatric hospital bed. History Interval history: No acute events overnight. Patient has no complaints at this time. She was updated about current care plan. Hospitalist Physical - Physical exam Narrative exam: GENERAL: Obese woman. In no acute distress. HEENT: NC @ 4LPM NECK: Supple. CHEST/LUNGS: Distant breath sounds bilaterally. HEART/CARDIOVASCULAR: RRR. No murmur, rubs or gallops appreciated. ABDOMEN: +Pannus. +BS. NT/ND. SKIN: discoloration of pannus NEURO: No focal motor deficit. Follows all commands. MUSCULOSKELETAL: No joint effusion EXTREMITIES: No cyanosis, clubbing. BLE 1+ pitting edema. PSYCH: Cooperative. - Constitutional Vitals: Temp Pulse Resp BP Pulse Ox 98.7 F 94 H 18 123/61 91 03/03/22 11:21 03/03/22 11:21 03/03/22 11:21 03/03/22 11:21 03/03/22 11:21 General appearance: Present: no acute distress, well-nourished, obese HEART Score - HEART Score EKG: Non-specific Age: 45-65 Risk factors: > 3 risk factors or hx of atherosclerotic disease Troponin: Troponin T 0.022 ng/mL (0.00-0.029) 02/27/22 06:46 Troponin: < normal limit - Critical Actions Critical Actions: 4-6 pts:12-16.6% risk of adverse cardiac event. Should be admitted Results - Labs CBC & Chem 7: 02/27/22 00:33 03/03/22 03:55 Labs: Laboratory Last Values WBC 6.1 K/mm3 (4.5-11.0) 02/27/22 00:33 RBC 3.75 M/mm3 (3.65-5.03) 02/27/22 00:33 Hgb 9.6 gm/dl (10.1-14.3) L 02/27/22 00:33 Hct 33.1 % (30.3-42.9) 02/27/22 00:33 MCV 88 fl (79-97) 02/27/22 00:33 MCH 26 pg (28-32) L 02/27/22 00:33 MCHC 29 % (30-34) L 02/27/22 00:33 RDW 19.5 % (13.2-15.2) H 02/27/22 00:33 Plt Count 314 K/mm3 (140-440) 02/27/22 00:33 Lymph % (Auto) Technical Publications Manager 02/27/22 00:33 [place] % (Auto) Technical Publications Manager 02/27/22 00:33 Eos % (Auto) Technical Publications Manager 02/27/22 00:33 Baso % (Auto) Technical Publications Manager 02/27/22 00:33 Lymph # (Auto) Technical Publications Manager 02/27/22 00:33 [place] # (Auto) Technical Publications Manager 02/27/22 00:33 Eos # (Auto) Technical Publications Manager 02/27/22 00:33 Baso # (Auto) Technical Publications Manager 02/27/22 00:33 Seg Neutrophils % Technical Publications Manager 02/27/22 00:33 Seg Neutrophils # Technical Publications Manager 02/27/22 00:33 Sodium 143 mmol/L (137-145) 03/03/22 03:55 Potassium 5.2 mmol/L (3.6-5.0) H 03/03/22 03:55 Chloride 95.3 mmol/L (98-107) L 03/03/22 03:55 Carbon Dioxide 44 mmol/L (22-30) H* 03/03/22 03:55 Anion Gap 11 mmol/L 03/03/22 03:55 BUN 17 mg/dL (7-17) 03/03/22 03:55 Creatinine 1.5 mg/dL (0.6-1.2) H 03/03/22 03:55 Estimated GFR 43 ml/min 03/03/22 03:55 BUN/Creatinine Ratio 11 % 03/03/22 03:55 Glucose 80 mg/dL (65-100) 03/03/22 03:55 Calcium 9.7 mg/dL (8.4-10.2) 03/03/22 03:55 Total Bilirubin 0.30 mg/dL (0.1-1.2) 02/27/22 00:33 AST 17 units/L (5-40) 02/27/22 00:33 ALT 15 units/L (7-56) 02/27/22 00:33 Alkaline Phosphatase 143 units/L (35-129) H 02/27/22 00:33 Troponin T 0.022 ng/mL (0.00-0.029) 02/27/22 06:46 NT-Pro-B Natriuret Pep 719.5 pg/mL (0-900) 02/27/22 08:33 Total Protein 7.1 g/dL (6.3-8.2) 02/27/22 00:33 Albumin 3.1 g/dL (3.9-5) L 02/27/22 00:33 Albumin/Globulin Ratio 0.8 % 02/27/22 00:33 Small/IV: Voiding Method External Female Catheter Active Medications - Current Medications Current Medications: Generic Name Dose Route Start Last Admin Trade Name Freq PRN Reason Stop Dose Admin Acetaminophen 650 mg 02/27/22 10:30 Acetaminophen 325 Mg Tab PO Q4H PRN Pain MILD(1-3)/Fever >100.5/CHAVEZ Albuterol 2 puff 02/28/22 14:00 Albuterol 8.5 Gm Mdi Inhalation IH QID PRN Shortness Of Breath Amiodarone HCl 200 mg 02/27/22 11:00 03/03/22 10:20 Amiodarone 200 Mg Tab PO 200 mg QDAY MARCELLA Administration Amlodipine Besylate 10 mg 02/28/22 10:00 03/03/22 10:20 Amlodipine 10 Mg Tab PO 10 mg QDAY MARCELLA Administration Apixaban 5 mg 02/27/22 11:00 03/03/22 10:20 Apixaban 5 Mg Tab PO 5 mg Q12HR MARCELLA Administration Protocol Aspirin 81 mg 02/27/22 11:00 03/03/22 10:20 Aspirin 81 Mg Tab Chew PO 81 mg QDAY MARCELLA Administration Atorvastatin Calcium 40 mg 02/27/22 22:00 03/02/22 21:39 Atorvastatin 40 Mg Tab PO 40 mg QHS MARCELLA Administration Diltiazem HCl 240 mg 02/28/22 12:00 03/03/22 10:21 Diltiazem Cd 240 Mg Cap PO 240 mg QDAY MARCELLA Administration Docusate Sodium 100 mg 02/27/22 22:00 03/02/22 21:39 Docusate Sodium 100 Mg Cap PO 100 mg BID MARCELLA Administration Fluticasone Propionate 50 mcg 03/01/22 10:00 03/03/22 10:19 Fluticasone Propionate Nasal [place] 16 Gm NS 50 mcg QDAY MARCELLA Administration Furosemide 40 mg 03/02/22 10:00 03/03/22 10:20 Furosemide 40 Mg Tab PO 40 mg QDAY MARCELLA Administration Gabapentin 1,200 mg 02/28/22 14:00 03/02/22 20:50 Gabapentin 400 Mg Cap PO 1,200 mg TID MARCELLA Administration Loperamide HCl 2 mg 02/28/22 12:00 03/01/22 09:27 Loperamide 2 Mg Cap PO 2 mg Q2H PRN Administration Diarrhea Morphine Sulfate 2 mg 02/27/22 10:30 Morphine 2 Mg/1 Ml Inj IV Q4H PRN Pain , Severe (7-10) Ondansetron HCl 4 mg 02/27/22 10:00 Ondansetron 4 Mg/2 Ml Inj IV Q8H PRN Nausea And Vomiting Oxycodone/Acetaminophen 1 tab 02/27/22 10:30 Oxycodone /Acetaminophen 5-325mg Tab PO Q6H PRN Pain, Moderate (4-6) Pantoprazole Sodium 40 mg 02/28/22 07:30 03/02/22 10:23 Pantoprazole 40 Mg Tab PO 40 mg DAILY@0730 MARCELLA Administration Sodium Chloride 10 ml 02/27/22 11:00 03/02/22 21:39 Sodium Chloride 0.9% 10 Ml Flush Syringe IV 10 ml BID MARCELLA Administration Sodium Chloride 10 ml 02/27/22 11:00 Sodium Chloride 0.9% 10 Ml Flush Syringe IV PRN PRN LINE FLUSH
[2022-03-03] MEDS: GABAPENTIN 400 MG CAP PO SCH ×3 (17:35→21:31)
[2022-03-03] MEDS: PANTOPRAZOLE 40 MG TAB PO SCH (17:35)
[2022-03-03] MEDS: DOCUSATE SODIUM 100 MG CAP PO SCH ×2 (17:36→21:31)
[2022-03-04 06:32] LABS: Calcium 10.2 mg/dL (8.4-10.2)
--- NOTE | 2022-03-04 08:35 | Progress Note ---
Assessment and Plan Assessment and plan: Patient is a 61-year-old female past medical history of morbid obesity, arthritis, chronic systolic heart failure, COPD, hypertension, pulmonary embolism on Eliquis (5 mg twice daily), GERD, and hyperlipidemia presented to the ED with complaints of chest tightness, shortness of breath, and a burning sensation in her upper abdomen. Patient was admitted for heart failure exacerbation and acute on chronic respiratory failure. #Acute on chronic diastolic heart failure-improving #cor pulmonale #moderate to severe tricuspid regurgitation - Continue CHF exacerbation protocol: Telemetry, Strict I/O, monitor urine output every shift, daily weights, afterload reduction, low-sodium diet, and fluid restriction of approximately 1.5 mL/day - continue PO lasix - Supplemental oxygen: 4 L nasal cannula - ProBNP on admission: 719 - TTE (01/29/2022) revealing EF 55% with normal-sized LV, normal LV systolic function, mild concentric LVH, severely dilated RV, mildly hypokinetic RV, moderately dilated LA, severely dilated RA, moderate to severe tricuspid regurgitation, severe pulmonary hypertension, and RVSP of 65-70 mmHg - patient to follow up with Pulmonology and Cardiology outpatient #Hyperkalemia -insulin, D50W and calcium gluconate & kayaxalate -will continue to monitor and treat #Acute on chronic hypoxic respiratory failure-resolved #Severe pulmonary hypertension - etiology: Acute on chronic systolic heart failure - baseline oxygen requirements: 4L nasal cannula - supplemental oxygen: patient on home O2 requirement - Continue protocol: continue pulse oximetry, wean oxygen as tolerated, ordered incentive spirometry and educated patient on how to use it and its importance. - continue to monitor #History of pulmonary embolism #Paroxysmal Atrial fibrillation Continue home Eliquis 5 mg twice daily, amiodarone 200 mg twice daily #CKD stage III Creatinine 1.4 (baseline 1.61.9) Renally dose medications and avoid nephrotoxic drugs #Metabolic alkalosis -likely secondary to diuretic use #Self reported tremor -outpatient Neurology follow up #Hypertension #Hyperlipidemia - home medications: Atorvastatin 40 mg daily, amlodipine 10 mg daily - current medications: Atorvastatin 40 mg daily, amlodipine 10 mg daily - SBP goal <160 and DBP goal <90 while inpatient - continue to monitor #COPD Continue DuoNebs and albuterol nebs as needed #GERD Continue home pantoprazole 40 mg daily #Normocytic anemia Hemoglobin 9.6 Likely secondary to anemia of chronic disease. Transfuse if hemoglobin <7 or patient become symptomatic. #Arthritis Continue analgesics as needed #Morbid obesity #Weight loss counseling #Exercise counseling - BMI 66.6 - Counseled patient on the importance of weight loss, incorporating exercise, and dietary changes (lean meats, fresh fruits and vegetables, and water intake). Patient expresses understanding. - Time: +15 min #Advanced care planning -Disease education conducted, care plan discussed, diagnoses discussed, prognosis discussed, and patient acknowledges understanding with care plan -Time: +30 min #Discharge planning -Patient primary caregiver is unable to accept patient at this time. Anticipate discharge in near future with resumption of home health services. Also pending bariatric hospital bed. History Interval history: No acute events overnight. Patient reports not being able to feel comfortable in the bed and vaginal irritation. She has chronic R ankle pain that she can tolerate. She has no other complaints at this time. Hospitalist Physical - Physical exam Narrative exam: GENERAL: Obese woman. In no acute distress. HEENT: NC @ 4LPM NECK: Supple. CHEST/LUNGS: Distant breath sounds bilaterally. HEART/CARDIOVASCULAR: RRR. No murmur, rubs or gallops appreciated. ABDOMEN: +Pannus. +BS. NT/ND. SKIN: discoloration of pannus NEURO: No focal motor deficit. Follows all commands. MUSCULOSKELETAL: No joint effusion EXTREMITIES: No cyanosis, clubbing. BLE 1+ pitting edema. PSYCH: Cooperative. - Constitutional Vitals: Temp Pulse Resp BP Pulse Ox 98.0 F 85 20 124/57 91 03/04/22 03:10 03/04/22 03:10 03/04/22 03:10 03/04/22 03:10 03/04/22 03:11 General appearance: Present: no acute distress, well-nourished, obese HEART Score - HEART Score EKG: Non-specific Age: 45-65 Risk factors: > 3 risk factors or hx of atherosclerotic disease Troponin: Troponin T 0.022 ng/mL (0.00-0.029) 02/27/22 06:46 Troponin: < normal limit - Critical Actions Critical Actions: 4-6 pts:12-16.6% risk of adverse cardiac event. Should be admitted Results - Labs CBC & Chem 7: 02/27/22 00:33 03/04/22 05:13 Labs: Laboratory Last Values WBC 6.1 K/mm3 (4.5-11.0) 02/27/22 00:33 RBC 3.75 M/mm3 (3.65-5.03) 02/27/22 00:33 Hgb 9.6 gm/dl (10.1-14.3) L 02/27/22 00:33 Hct 33.1 % (30.3-42.9) 02/27/22 00:33 MCV 88 fl (79-97) 02/27/22 00:33 MCH 26 pg (28-32) L 02/27/22 00:33 MCHC 29 % (30-34) L 02/27/22 00:33 RDW 19.5 % (13.2-15.2) H 02/27/22 00:33 Plt Count 314 K/mm3 (140-440) 02/27/22 00:33 Lymph % (Auto) [employer] 02/27/22 00:33 [place] % (Auto) [employer] 02/27/22 00:33 Eos % (Auto) [employer] 02/27/22 00:33 Baso % (Auto) [employer] 02/27/22 00:33 Lymph # (Auto) [employer] 02/27/22 00:33 [place] # (Auto) [employer] 02/27/22 00:33 Eos # (Auto) [employer] 02/27/22 00:33 Baso # (Auto) [employer] 02/27/22 00:33 Seg Neutrophils % [employer] 02/27/22 00:33 Seg Neutrophils # [employer] 02/27/22 00:33 Sodium 145 mmol/L (137-145) 03/04/22 05:13 Potassium 5.2 mmol/L (3.6-5.0) H 03/04/22 05:13 Chloride 94.3 mmol/L (98-107) L 03/04/22 05:13 Carbon Dioxide 42 mmol/L (22-30) H* 03/04/22 05:13 Anion Gap 14 mmol/L 03/04/22 05:13 BUN 17 mg/dL (7-17) 03/04/22 05:13 Creatinine 1.4 mg/dL (0.6-1.2) H 03/04/22 05:13 Estimated GFR 46 ml/min 03/04/22 05:13 BUN/Creatinine Ratio 12 % 03/04/22 05:13 Glucose 86 mg/dL (65-100) 03/04/22 05:13 Calcium 10.2 mg/dL (8.4-10.2) 03/04/22 05:13 Total Bilirubin 0.30 mg/dL (0.1-1.2) 02/27/22 00:33 AST 17 units/L (5-40) 02/27/22 00:33 ALT 15 units/L (7-56) 02/27/22 00:33 Alkaline Phosphatase 143 units/L (35-129) H 02/27/22 00:33 Troponin T 0.022 ng/mL (0.00-0.029) 02/27/22 06:46 NT-Pro-B Natriuret Pep 719.5 pg/mL (0-900) 02/27/22 08:33 Total Protein 7.1 g/dL (6.3-8.2) 02/27/22 00:33 Albumin 3.1 g/dL (3.9-5) L 02/27/22 00:33 Albumin/Globulin Ratio 0.8 % 02/27/22 00:33 Small/IV: Voiding Method External Female Catheter Active Medications - Current Medications Current Medications: Generic Name Dose Route Start Last Admin Trade Name Freq PRN Reason Stop Dose Admin Acetaminophen 650 mg 02/27/22 10:30 Acetaminophen 325 Mg Tab PO Q4H PRN Pain MILD(1-3)/Fever >100.5/CHAVEZ Albuterol 2 puff 02/28/22 14:00 Albuterol 8.5 Gm Mdi Inhalation IH QID PRN Shortness Of Breath Amiodarone HCl 200 mg 02/27/22 11:00 03/03/22 10:20 Amiodarone 200 Mg Tab PO 200 mg QDAY MARCELLA Administration Amlodipine Besylate 10 mg 02/28/22 10:00 03/03/22 10:20 Amlodipine 10 Mg Tab PO 10 mg QDAY MARCELLA Administration Apixaban 5 mg 02/27/22 11:00 03/03/22 21:31 Apixaban 5 Mg Tab PO 5 mg Q12HR MARCELLA Administration Protocol Aspirin 81 mg 02/27/22 11:00 03/03/22 10:20 Aspirin 81 Mg Tab Chew PO 81 mg QDAY MARCELLA Administration Atorvastatin Calcium 40 mg 02/27/22 22:00 03/03/22 21:33 Atorvastatin 40 Mg Tab PO 40 mg QHS MARCELLA Administration Diltiazem HCl 240 mg 02/28/22 12:00 03/03/22 10:21 Diltiazem Cd 240 Mg Cap PO 240 mg QDAY MARCELLA Administration Docusate Sodium 100 mg 02/27/22 22:00 03/03/22 21:31 Docusate Sodium 100 Mg Cap PO 100 mg BID MARCELLA Administration Fluticasone Propionate 50 mcg 03/01/22 10:00 03/03/22 10:19 Fluticasone Propionate Nasal [place] 16 Gm NS 50 mcg QDAY MARCELLA Administration Furosemide 40 mg 03/02/22 10:00 03/03/22 10:20 Furosemide 40 Mg Tab PO 40 mg QDAY MARCELLA Administration Gabapentin 1,200 mg 02/28/22 14:00 03/03/22 21:31 Gabapentin 400 Mg Cap PO 1,200 mg TID MARCELLA Administration Loperamide HCl 2 mg 02/28/22 12:00 03/01/22 09:27 Loperamide 2 Mg Cap PO 2 mg Q2H PRN Administration Diarrhea Morphine Sulfate 2 mg 02/27/22 10:30 Morphine 2 Mg/1 Ml Inj IV Q4H PRN Pain , Severe (7-10) Ondansetron HCl 4 mg 02/27/22 10:00 Ondansetron 4 Mg/2 Ml Inj IV Q8H PRN Nausea And Vomiting Oxycodone/Acetaminophen 1 tab 02/27/22 10:30 Oxycodone /Acetaminophen 5-325mg Tab PO Q6H PRN Pain, Moderate (4-6) Pantoprazole Sodium 40 mg 02/28/22 07:30 03/03/22 17:35 Pantoprazole 40 Mg Tab PO 40 mg DAILY@0730 MARCELLA Administration Sodium Chloride 10 ml 02/27/22 11:00 03/03/22 21:33 Sodium Chloride 0.9% 10 Ml Flush Syringe IV 10 ml BID MARCELLA Administration Sodium Chloride 10 ml 02/27/22 11:00 Sodium Chloride 0.9% 10 Ml Flush Syringe IV PRN PRN LINE FLUSH
[2022-03-04] MEDS ORDERED: SODIUM POLYSTYRENE 15 GM/60 ML ORAL LIQD PO NR (09:00)
[2022-03-04] MEDS: amLODIPine 10 MG TAB PO SCH (10:37)
[2022-03-04] MEDS: GABAPENTIN 400 MG CAP PO SCH ×3 (10:37→23:13)
[2022-03-04] MEDS: AMIODARONE 200 MG TAB PO SCH (10:38)
[2022-03-04] MEDS: dilTIAZem CD 240 MG CAP PO SCH (10:38)
[2022-03-04] MEDS: PANTOPRAZOLE 40 MG TAB PO SCH ×2 (10:38→23:37)
[2022-03-04] MEDS: ASPIRIN 81 MG TAB CHEW PO SCH (10:38)
[2022-03-04] MEDS: APIXABAN 5 MG TAB PO SCH ×2 (10:38→23:14)
[2022-03-04] MEDS: FUROSEMIDE 40 MG TAB PO SCH (10:39)
[2022-03-04] MEDS: DOCUSATE SODIUM 100 MG CAP PO SCH ×2 (10:39→23:14)
[2022-03-04] MEDS: FLUTICASONE PROPIONATE NASAL SPRAY 16 GM NS SCH (10:39)
[2022-03-04] MEDS: CLOBETASOL 0.05% CREAM 15 GM TP SCH (22:36)
[2022-03-04] MEDS: oxyCODONE /ACETAMINOPHEN 5-325MG TAB PO PRN (23:16)
--- NOTE | 2022-03-05 07:46 | Progress Note ---
Assessment and Plan Assessment and plan: Patient is a 61-year-old female past medical history of morbid obesity, arthritis, chronic systolic heart failure, COPD, hypertension, pulmonary embolism on Eliquis (5 mg twice daily), GERD, and hyperlipidemia presented to the ED with complaints of chest tightness, shortness of breath, and a burning sensation in her upper abdomen. Patient was admitted for heart failure exacerbation and acute on chronic respiratory failure. #Acute on chronic diastolic heart failure-improving #cor pulmonale #moderate to severe tricuspid regurgitation - Continue CHF exacerbation protocol: Telemetry, Strict I/O, monitor urine output every shift, daily weights, afterload reduction, low-sodium diet, and fluid restriction of approximately 1.5 mL/day - continue PO lasix - Supplemental oxygen: 4 L nasal cannula - ProBNP on admission: 719 - TTE (01/29/2022) revealing EF 55% with normal-sized LV, normal LV systolic function, mild concentric LVH, severely dilated RV, mildly hypokinetic RV, moderately dilated LA, severely dilated RA, moderate to severe tricuspid regurgitation, severe pulmonary hypertension, and RVSP of 65-70 mmHg - patient to follow up with Pulmonology and Cardiology outpatient #Hyperkalemia -insulin, D50W and calcium gluconate & kayaxalate -will continue to monitor and treat #Acute on chronic hypoxic respiratory failure-resolved #Severe pulmonary hypertension - etiology: Acute on chronic systolic heart failure - baseline oxygen requirements: 4L nasal cannula - supplemental oxygen: patient on home O2 requirement - Continue protocol: continue pulse oximetry, wean oxygen as tolerated, ordered incentive spirometry and educated patient on how to use it and its importance. - continue to monitor #History of pulmonary embolism #Paroxysmal Atrial fibrillation Continue home Eliquis 5 mg twice daily, amiodarone 200 mg twice daily #CKD stage III Creatinine 1.4 (baseline 1.61.9) Renally dose medications and avoid nephrotoxic drugs #Metabolic alkalosis -likely secondary to diuretic use #Self reported tremor -outpatient Neurology follow up #Hypertension #Hyperlipidemia - home medications: Atorvastatin 40 mg daily, amlodipine 10 mg daily - current medications: Atorvastatin 40 mg daily, amlodipine 10 mg daily - SBP goal <160 and DBP goal <90 while inpatient - continue to monitor #COPD Continue DuoNebs and albuterol nebs as needed #GERD Continue home pantoprazole 40 mg daily #Normocytic anemia Hemoglobin 9.6 Likely secondary to anemia of chronic disease. Transfuse if hemoglobin <7 or patient become symptomatic. #Arthritis Continue analgesics as needed #Morbid obesity #Weight loss counseling #Exercise counseling - BMI 66.6 - Counseled patient on the importance of weight loss, incorporating exercise, and dietary changes (lean meats, fresh fruits and vegetables, and water intake). Patient expresses understanding. - Time: +15 min #Advanced care planning -Disease education conducted, care plan discussed, diagnoses discussed, prognosis discussed, and patient acknowledges understanding with care plan -Time: +30 min #Discharge planning -Patient primary caregiver is unable to accept patient at this time. Anticipate discharge in near future with resumption of home health services. Also pending bariatric hospital bed. History Interval history: No acute events overnight. Patient reports feeling like she is beginning to have swelling again since the switch from IV to PO lasix. We discussed current care plan. Patient agreeable. Hospitalist Physical - Physical exam Narrative exam: GENERAL: Obese woman. In no acute distress. HEENT: NC @ 4LPM NECK: Supple. CHEST/LUNGS: Distant breath sounds bilaterally. HEART/CARDIOVASCULAR: RRR. No murmur, rubs or gallops appreciated. ABDOMEN: +Pannus. +BS. NT/ND. SKIN: discoloration of pannus NEURO: No focal motor deficit. Follows all commands. MUSCULOSKELETAL: No joint effusion EXTREMITIES: No cyanosis, clubbing. BLE 1+ pitting edema improving. PSYCH: Cooperative. - Constitutional Vitals: Temp Pulse Resp BP Pulse Ox 98.6 F 90 17 115/55 92 03/05/22 03:40 03/05/22 03:40 03/05/22 03:40 03/05/22 03:40 03/05/22 03:41 General appearance: Present: no acute distress, well-nourished, obese HEART Score - HEART Score EKG: Non-specific Age: 45-65 Risk factors: > 3 risk factors or hx of atherosclerotic disease Troponin: Troponin T 0.022 ng/mL (0.00-0.029) 02/27/22 06:46 Troponin: < normal limit - Critical Actions Critical Actions: 4-6 pts:12-16.6% risk of adverse cardiac event. Should be admitted Results - Labs CBC & Chem 7: 02/27/22 00:33 03/04/22 05:13 Labs: Laboratory Last Values WBC 6.1 K/mm3 (4.5-11.0) 02/27/22 00:33 RBC 3.75 M/mm3 (3.65-5.03) 02/27/22 00:33 Hgb 9.6 gm/dl (10.1-14.3) L 02/27/22 00:33 Hct 33.1 % (30.3-42.9) 02/27/22 00:33 MCV 88 fl (79-97) 02/27/22 00:33 MCH 26 pg (28-32) L 02/27/22 00:33 MCHC 29 % (30-34) L 02/27/22 00:33 RDW 19.5 % (13.2-15.2) H 02/27/22 00:33 Plt Count 314 K/mm3 (140-440) 02/27/22 00:33 Lymph % (Auto) [employer] 02/27/22 00:33 [place] % (Auto) [employer] 02/27/22 00:33 Eos % (Auto) [employer] 02/27/22 00:33 Baso % (Auto) [employer] 02/27/22 00:33 Lymph # (Auto) [employer] 02/27/22 00:33 [place] # (Auto) [employer] 02/27/22 00:33 Eos # (Auto) [employer] 02/27/22 00:33 Baso # (Auto) [employer] 02/27/22 00:33 Seg Neutrophils % [employer] 02/27/22 00:33 Seg Neutrophils # [employer] 02/27/22 00:33 Sodium 145 mmol/L (137-145) 03/04/22 05:13 Potassium 5.2 mmol/L (3.6-5.0) H 03/04/22 05:13 Chloride 94.3 mmol/L (98-107) L 03/04/22 05:13 Carbon Dioxide 42 mmol/L (22-30) H* 03/04/22 05:13 Anion Gap 14 mmol/L 03/04/22 05:13 BUN 17 mg/dL (7-17) 03/04/22 05:13 Creatinine 1.4 mg/dL (0.6-1.2) H 03/04/22 05:13 Estimated GFR 46 ml/min 03/04/22 05:13 BUN/Creatinine Ratio 12 % 03/04/22 05:13 Glucose 86 mg/dL (65-100) 03/04/22 05:13 Calcium 10.2 mg/dL (8.4-10.2) 03/04/22 05:13 Total Bilirubin 0.30 mg/dL (0.1-1.2) 02/27/22 00:33 AST 17 units/L (5-40) 02/27/22 00:33 ALT 15 units/L (7-56) 02/27/22 00:33 Alkaline Phosphatase 143 units/L (35-129) H 02/27/22 00:33 Troponin T 0.022 ng/mL (0.00-0.029) 02/27/22 06:46 NT-Pro-B Natriuret Pep 719.5 pg/mL (0-900) 02/27/22 08:33 Total Protein 7.1 g/dL (6.3-8.2) 02/27/22 00:33 Albumin 3.1 g/dL (3.9-5) L 02/27/22 00:33 Albumin/Globulin Ratio 0.8 % 02/27/22 00:33 Small/IV: Voiding Method External Female Catheter Active Medications - Current Medications Current Medications: Generic Name Dose Route Start Last Admin Trade Name Freq PRN Reason Stop Dose Admin Acetaminophen 650 mg 02/27/22 10:30 Acetaminophen 325 Mg Tab PO Q4H PRN Pain MILD(1-3)/Fever >100.5/CHAVEZ Albuterol 2 puff 02/28/22 14:00 Albuterol 8.5 Gm Mdi Inhalation IH QID PRN Shortness Of Breath Amiodarone HCl 200 mg 02/27/22 11:00 03/04/22 10:38 Amiodarone 200 Mg Tab PO 200 mg QDAY MARCELLA Administration Amlodipine Besylate 10 mg 02/28/22 10:00 03/04/22 10:37 Amlodipine 10 Mg Tab PO 10 mg QDAY MARCELLA Administration Apixaban 5 mg 02/27/22 11:00 03/04/22 23:14 Apixaban 5 Mg Tab PO 5 mg Q12HR MARCELLA Administration Protocol Aspirin 81 mg 02/27/22 11:00 03/04/22 10:38 Aspirin 81 Mg Tab Chew PO 81 mg QDAY MARCELLA Administration Atorvastatin Calcium 40 mg 02/27/22 22:00 03/04/22 23:13 Atorvastatin 40 Mg Tab PO 40 mg QHS MARCELLA Administration Clobetasol Propionate 1 applic 03/04/22 22:00 03/04/22 22:36 Clobetasol 0.05% Cream 15 Gm TP 1 applic BID MARCELLA Administration Diltiazem HCl 240 mg 02/28/22 12:00 03/04/22 10:38 Diltiazem Cd 240 Mg Cap PO 240 mg QDAY MARCELLA Administration Docusate Sodium 100 mg 02/27/22 22:00 03/04/22 23:14 Docusate Sodium 100 Mg Cap PO 100 mg BID MARCELLA Administration Fluticasone Propionate 50 mcg 03/01/22 10:00 03/04/22 10:39 Fluticasone Propionate Nasal [place] 16 Gm NS 50 mcg QDAY MARCELLA Administration Furosemide 40 mg 03/02/22 10:00 03/04/22 10:39 Furosemide 40 Mg Tab PO 40 mg QDAY MARCELLA Administration Gabapentin 1,200 mg 02/28/22 14:00 03/04/22 23:13 Gabapentin 400 Mg Cap PO 1,200 mg TID MARCELLA Administration Loperamide HCl 2 mg 02/28/22 12:00 03/01/22 09:27 Loperamide 2 Mg Cap PO 2 mg Q2H PRN Administration Diarrhea Morphine Sulfate 2 mg 02/27/22 10:30 Morphine 2 Mg/1 Ml Inj IV Q4H PRN Pain , Severe (7-10) Ondansetron HCl 4 mg 02/27/22 10:00 Ondansetron 4 Mg/2 Ml Inj IV Q8H PRN Nausea And Vomiting Oxycodone/Acetaminophen 1 tab 02/27/22 10:30 03/04/22 23:16 Oxycodone /Acetaminophen 5-325mg Tab PO 1 tab Q6H PRN Administration Pain, Moderate (4-6) Pantoprazole Sodium 40 mg 02/28/22 07:30 03/04/22 23:37 Pantoprazole 40 Mg Tab PO 40 mg DAILY@0730 MARCELLA Administration Sodium Chloride 10 ml 02/27/22 11:00 03/04/22 23:14 Sodium Chloride 0.9% 10 Ml Flush Syringe IV 10 ml BID MARCELLA Administration Sodium Chloride 10 ml 02/27/22 11:00 Sodium Chloride 0.9% 10 Ml Flush Syringe IV PRN PRN LINE FLUSH
[2022-03-05] MEDS: GABAPENTIN 400 MG CAP PO SCH ×3 (10:16→21:36)
[2022-03-05] MEDS: amLODIPine 10 MG TAB PO SCH (10:16)
[2022-03-05] MEDS: dilTIAZem CD 240 MG CAP PO SCH (10:17)
[2022-03-05] MEDS: DOCUSATE SODIUM 100 MG CAP PO SCH ×2 (10:17→22:00)
[2022-03-05] MEDS: ASPIRIN 81 MG TAB CHEW PO SCH (10:17)
[2022-03-05] MEDS: AMIODARONE 200 MG TAB PO SCH (10:18)
[2022-03-05] MEDS: APIXABAN 5 MG TAB PO SCH ×2 (10:18→21:36)
[2022-03-05] MEDS: FLUTICASONE PROPIONATE NASAL SPRAY 16 GM NS SCH (10:18)
[2022-03-05] MEDS: FUROSEMIDE 40 MG TAB PO SCH (10:18)
[2022-03-05] MEDS: CLOBETASOL 0.05% CREAM 15 GM TP SCH ×2 (10:19→22:10)
[2022-03-05] MEDS: oxyCODONE /ACETAMINOPHEN 5-325MG TAB PO PRN (13:49)
[2022-03-06 06:54] LABS: Calcium 10.5 mg/dL (8.4-10.2)
[2022-03-06] MEDS: FLUTICASONE PROPIONATE NASAL SPRAY 16 GM NS SCH (09:58)
[2022-03-06] MEDS: GABAPENTIN 400 MG CAP PO SCH ×3 (09:58→21:53)
[2022-03-06] MEDS: dilTIAZem CD 240 MG CAP PO SCH (09:58)
[2022-03-06] MEDS: oxyCODONE /ACETAMINOPHEN 5-325MG TAB PO PRN (09:59)
[2022-03-06] MEDS: ASPIRIN 81 MG TAB CHEW PO SCH (09:59)
[2022-03-06] MEDS: AMIODARONE 200 MG TAB PO SCH (09:59)
[2022-03-06] MEDS: DOCUSATE SODIUM 100 MG CAP PO SCH ×2 (10:00→21:54)
[2022-03-06] MEDS: FUROSEMIDE 40 MG TAB PO SCH (10:00)
[2022-03-06] MEDS: APIXABAN 5 MG TAB PO SCH ×2 (10:00→21:53)
[2022-03-06] MEDS: amLODIPine 10 MG TAB PO SCH (10:01)
[2022-03-06] MEDS: PANTOPRAZOLE 40 MG TAB PO SCH (10:01)
[2022-03-06] MEDS: CLOBETASOL 0.05% CREAM 15 GM TP SCH ×2 (10:43→22:00)
--- NOTE | 2022-03-06 11:07 | Progress Note ---
Assessment and Plan Assessment and plan: Patient is a 61-year-old female past medical history of morbid obesity, arthritis, chronic systolic heart failure, COPD, hypertension, pulmonary embolism on Eliquis (5 mg twice daily), GERD, and hyperlipidemia presented to the ED with complaints of chest tightness, shortness of breath, and a burning sensation in her upper abdomen. Patient was admitted for heart failure exacerbation and acute on chronic respiratory failure. #Acute on chronic diastolic heart failure-resolved #cor pulmonale #moderate to severe tricuspid regurgitation - Continue CHF exacerbation protocol: Telemetry, Strict I/O, monitor urine output every shift, daily weights, afterload reduction, low-sodium diet, and fluid restriction of approximately 1.5 mL/day - continue PO lasix - Supplemental oxygen: 4 L nasal cannula - ProBNP on admission: 719 - TTE (01/29/2022) revealing EF 55% with normal-sized LV, normal LV systolic function, mild concentric LVH, severely dilated RV, mildly hypokinetic RV, moderately dilated LA, severely dilated RA, moderate to severe tricuspid regurgitation, severe pulmonary hypertension, and RVSP of 65-70 mmHg - patient to follow up with Pulmonology and Cardiology outpatient #Hyperkalemia -insulin, D50W and calcium gluconate & kayaxalate -will continue to monitor and treat #Acute on chronic hypoxic respiratory failure-resolved #Severe pulmonary hypertension - etiology: Acute on chronic systolic heart failure - baseline oxygen requirements: 4L nasal cannula - supplemental oxygen: patient on home O2 requirement - Continue protocol: continue pulse oximetry, wean oxygen as tolerated, ordered incentive spirometry and educated patient on how to use it and its importance. - continue to monitor #History of pulmonary embolism #Paroxysmal Atrial fibrillation Continue home Eliquis 5 mg twice daily, amiodarone 200 mg twice daily #CKD stage III Creatinine 1.4 (baseline 1.61.9) Renally dose medications and avoid nephrotoxic drugs #Metabolic alkalosis -likely secondary to diuretic use #Self reported tremor -outpatient Neurology follow up #Hypertension #Hyperlipidemia - home medications: Atorvastatin 40 mg daily, amlodipine 10 mg daily - current medications: Atorvastatin 40 mg daily, amlodipine 10 mg daily - SBP goal <160 and DBP goal <90 while inpatient - continue to monitor #COPD Continue DuoNebs and albuterol nebs as needed #GERD Continue home pantoprazole 40 mg daily #Normocytic anemia Hemoglobin 9.6 Likely secondary to anemia of chronic disease. Transfuse if hemoglobin <7 or patient become symptomatic. #Arthritis Continue analgesics as needed #Morbid obesity #Weight loss counseling #Exercise counseling - BMI 66.6 - Counseled patient on the importance of weight loss, incorporating exercise, and dietary changes (lean meats, fresh fruits and vegetables, and water intake). Patient expresses understanding. - Time: +15 min #Advanced care planning -Disease education conducted, care plan discussed, diagnoses discussed, prognosis discussed, and patient acknowledges understanding with care plan -Time: +30 min #Discharge planning -Patient primary caregiver is unable to accept patient at this time. Anticipate discharge in near future with resumption of home health services. Also pending bariatric hospital bed. -anticipated discharge tomorrow History Interval history: No acute events overnight. Patient has no acute events. Her sister who has agreed to take care of her will be in [facility]. Anticipated discharge tomorrow. Patient agreeable. Hospitalist Physical - Physical exam Narrative exam: GENERAL: Obese woman. In no acute distress. HEENT: NC @ 4LPM NECK: Supple. CHEST/LUNGS: Distant breath sounds bilaterally. HEART/CARDIOVASCULAR: RRR. No murmur, rubs or gallops appreciated. ABDOMEN: +Pannus. +BS. NT/ND. SKIN: discoloration of pannus NEURO: No focal motor deficit. Follows all commands. MUSCULOSKELETAL: No joint effusion EXTREMITIES: No cyanosis, clubbing. BLE 1+ pitting edema improving. PSYCH: Cooperative. - Constitutional Vitals: Temp Pulse Resp BP Pulse Ox 98.1 F 88 18 139/67 88 03/05/22 20:19 03/05/22 22:00 03/05/22 20:19 03/05/22 20:19 03/06/22 09:25 General appearance: Present: no acute distress, well-nourished, obese HEART Score - HEART Score EKG: Non-specific Age: 45-65 Risk factors: > 3 risk factors or hx of atherosclerotic disease Troponin: Troponin T 0.022 ng/mL (0.00-0.029) 02/27/22 06:46 Troponin: < normal limit - Critical Actions Critical Actions: 4-6 pts:12-16.6% risk of adverse cardiac event. Should be admitted Results - Labs CBC & Chem 7: 02/27/22 00:33 03/06/22 06:08 Labs: Laboratory Last Values WBC 6.1 K/mm3 (4.5-11.0) 02/27/22 00:33 RBC 3.75 M/mm3 (3.65-5.03) 02/27/22 00:33 Hgb 9.6 gm/dl (10.1-14.3) L 02/27/22 00:33 Hct 33.1 % (30.3-42.9) 02/27/22 00:33 MCV 88 fl (79-97) 02/27/22 00:33 MCH 26 pg (28-32) L 02/27/22 00:33 MCHC 29 % (30-34) L 02/27/22 00:33 RDW 19.5 % (13.2-15.2) H 02/27/22 00:33 Plt Count 314 K/mm3 (140-440) 02/27/22 00:33 Lymph % (Auto) Pharmacy Delivery Driver 02/27/22 00:33 Day % (Auto) Pharmacy Delivery Driver 02/27/22 00:33 Eos % (Auto) Pharmacy Delivery Driver 02/27/22 00:33 Baso % (Auto) Pharmacy Delivery Driver 02/27/22 00:33 Lymph # (Auto) Pharmacy Delivery Driver 02/27/22 00:33 Day # (Auto) Pharmacy Delivery Driver 02/27/22 00:33 Eos # (Auto) Pharmacy Delivery Driver 02/27/22 00:33 Baso # (Auto) Pharmacy Delivery Driver 02/27/22 00:33 Seg Neutrophils % Pharmacy Delivery Driver 02/27/22 00:33 Seg Neutrophils # Pharmacy Delivery Driver 02/27/22 00:33 Sodium 141 mmol/L (137-145) 03/06/22 06:08 Potassium 4.6 mmol/L (3.6-5.0) 03/06/22 06:08 Chloride 90.7 mmol/L (98-107) L 03/06/22 06:08 Carbon Dioxide 46 mmol/L (22-30) H* 03/06/22 06:08 Anion Gap 9 mmol/L 03/06/22 06:08 BUN 17 mg/dL (7-17) 03/06/22 06:08 Creatinine 1.4 mg/dL (0.6-1.2) H 03/06/22 06:08 Estimated GFR 46 ml/min 03/06/22 06:08 BUN/Creatinine Ratio 12 % 03/06/22 06:08 Glucose 85 mg/dL (65-100) 03/06/22 06:08 Calcium 10.5 mg/dL (8.4-10.2) H 03/06/22 06:08 Total Bilirubin 0.30 mg/dL (0.1-1.2) 02/27/22 00:33 AST 17 units/L (5-40) 02/27/22 00:33 ALT 15 units/L (7-56) 02/27/22 00:33 Alkaline Phosphatase 143 units/L (35-129) H 02/27/22 00:33 Troponin T 0.022 ng/mL (0.00-0.029) 02/27/22 06:46 NT-Pro-B Natriuret Pep 719.5 pg/mL (0-900) 02/27/22 08:33 Total Protein 7.1 g/dL (6.3-8.2) 02/27/22 00:33 Albumin 3.1 g/dL (3.9-5) L 02/27/22 00:33 Albumin/Globulin Ratio 0.8 % 02/27/22 00:33 Small/IV: Voiding Method External Female Catheter Active Medications - Current Medications Current Medications: Generic Name Dose Route Start Last Admin Trade Name Freq PRN Reason Stop Dose Admin Acetaminophen 650 mg 02/27/22 10:30 Acetaminophen 325 Mg Tab PO Q4H PRN Pain MILD(1-3)/Fever >100.5/CHAVEZ Albuterol 2 puff 02/28/22 14:00 Albuterol 8.5 Gm Mdi Inhalation IH QID PRN Shortness Of Breath Amiodarone HCl 200 mg 02/27/22 11:00 03/06/22 09:59 Amiodarone 200 Mg Tab PO 200 mg QDAY MARCELLA Administration Amlodipine Besylate 10 mg 02/28/22 10:00 03/06/22 10:01 Amlodipine 10 Mg Tab PO 10 mg QDAY MARCELLA Administration Apixaban 5 mg 02/27/22 11:00 03/06/22 10:00 Apixaban 5 Mg Tab PO 5 mg Q12HR MARCELLA Administration Protocol Aspirin 81 mg 02/27/22 11:00 03/06/22 09:59 Aspirin 81 Mg Tab Chew PO 81 mg QDAY MARCELLA Administration Atorvastatin Calcium 40 mg 02/27/22 22:00 03/05/22 21:36 Atorvastatin 40 Mg Tab PO 40 mg QHS MARCELLA Administration Clobetasol Propionate 1 applic 03/04/22 22:00 03/06/22 10:43 Clobetasol 0.05% Cream 15 Gm TP Not Given BID MARCELLA Diltiazem HCl 240 mg 02/28/22 12:00 03/06/22 09:58 Diltiazem Cd 240 Mg Cap PO 240 mg QDAY MARCELLA Administration Docusate Sodium 100 mg 02/27/22 22:00 03/06/22 10:00 Docusate Sodium 100 Mg Cap PO Not Given BID MARCELLA Fluticasone Propionate 50 mcg 03/01/22 10:00 03/06/22 09:58 Fluticasone Propionate Nasal Milmine 16 Gm NS 50 mcg QDAY MARCELLA Administration Furosemide 40 mg 03/02/22 10:00 03/06/22 10:00 Furosemide 40 Mg Tab PO 40 mg QDAY MARCELLA Administration Gabapentin 1,200 mg 02/28/22 14:00 03/06/22 09:58 Gabapentin 400 Mg Cap PO 1,200 mg TID MARCELLA Administration Loperamide HCl 2 mg 02/28/22 12:00 03/01/22 09:27 Loperamide 2 Mg Cap PO 2 mg Q2H PRN Administration Diarrhea Morphine Sulfate 2 mg 02/27/22 10:30 Morphine 2 Mg/1 Ml Inj IV Q4H PRN Pain , Severe (7-10) Ondansetron HCl 4 mg 02/27/22 10:00 Ondansetron 4 Mg/2 Ml Inj IV Q8H PRN Nausea And Vomiting Oxycodone/Acetaminophen 1 tab 02/27/22 10:30 03/06/22 09:59 Oxycodone /Acetaminophen 5-325mg Tab PO 1 tab Q6H PRN Administration Pain, Moderate (4-6) Pantoprazole Sodium 40 mg 02/28/22 07:30 03/06/22 10:01 Pantoprazole 40 Mg Tab PO 40 mg DAILY@0730 MARCELLA Administration Sodium Chloride 10 ml 02/27/22 11:00 03/06/22 10:01 Sodium Chloride 0.9% 10 Ml Flush Syringe IV 10 ml BID MARCELLA Administration Sodium Chloride 10 ml 02/27/22 11:00 Sodium Chloride 0.9% 10 Ml Flush Syringe IV PRN PRN LINE FLUSH
[2022-03-07] MEDS: GABAPENTIN 400 MG CAP PO SCH ×3 (08:45→21:06)
[2022-03-07] MEDS: PANTOPRAZOLE 40 MG TAB PO SCH (09:18)
[2022-03-07] MEDS: DOCUSATE SODIUM 100 MG CAP PO SCH ×2 (09:19→22:00)
[2022-03-07] MEDS: CLOBETASOL 0.05% CREAM 15 GM TP SCH ×2 (10:55→22:00)
[2022-03-07] MEDS: dilTIAZem CD 240 MG CAP PO SCH (11:04)
[2022-03-07] MEDS: APIXABAN 5 MG TAB PO SCH ×2 (11:04→21:06)
[2022-03-07] MEDS: amLODIPine 10 MG TAB PO SCH (11:05)
[2022-03-07] MEDS: AMIODARONE 200 MG TAB PO SCH (11:05)
[2022-03-07] MEDS: ASPIRIN 81 MG TAB CHEW PO SCH (11:05)
[2022-03-07] MEDS: FLUTICASONE PROPIONATE NASAL SPRAY 16 GM NS SCH (11:05)
[2022-03-07] MEDS: FUROSEMIDE 40 MG TAB PO SCH (11:06)
--- NOTE | 2022-03-07 11:53 | Discharge Summary ---
Providers - Providers Date of Admission: 02/27/22 09:13 Date of discharge: 03/07/22 Attending physician: JESUS ALBERTO SALEH MD 02/27/22 15:53 Consult to Physician [CONS] Routine Comment: Consulting Provider: NEETA HDZ Physician Instructions: Reason For Exam: Worsening tremors of b/l upper extremities 02/28/22 07:38 Physical Therapy Evaluation and Treat [CONS] Routine Comment: Reason For Exam: Assess gait and mobility Primary care physician: AKUA WINTER MD Hospitalization Reason for admission: Acute on chronic diastolic heart failure Condition: Stable Pertinent studies: Reviewed. Procedures: None. Hospital course: Patient is a 61-year-old female past medical history of morbid obesity, arthritis, chronic systolic heart failure, COPD, hypertension, pulmonary embolism on Eliquis (5 mg twice daily), GERD, and hyperlipidemia presented to the ED with complaints of chest tightness, shortness of breath, and a burning sensation in her upper abdomen. Patient also endorsed diffuse edema and feeling as if her "Lasix is not working". Patient was recently discharged from [facility] for the same complaints last week, and she expressed that she did not feel that she was able to take care of herself upon her most recent discharge. Patient endorses being compliant with her medications and "doing everything that she supposed to do". Patient also endorsed that she was supposed to have home physical therapy and Occupational Therapy that have yet to start. In the ED, the patient was hemodynamically stable except for oxygen saturation of 91% requiring 4 L nasal cannula. Patient's labs revealed unremarkable troponins x2 and BNP of 720. Patient was admitted for heart failure exacerbation. Patient underwent IV diuresis, fluid restriction, and counseling regarding medication compliance, fluid restriction, and salt restriction. Patient expresses understanding. Physical therapy recommended subacute rehab; however, prior attempts to have the patient admitted for SNF were unsuccessful. Patient will be discharging home with home health services, a bariatric hospital bed, and additional services. Patient is medically clear for discharge. Disposition: 01 HOME / SELF CARE / HOMELESS Final Discharge Diagnosis (Prints w/discharge instructions): Acute on chronic diastolic heart failure, cor pulmonale, moderate to severe tricuspid regurgitation, hyperkalemia, acute on chronic hypoxic respiratory failure, severe pulmonary hypertension, history of pulmonary embolism, paroxysmal atrial fibrillation on anticoagulation, CKD stage III, metabolic alkalosis, self- reported tremor, hypertension, hyperlipidemia, COPD, GERD, normocytic anemia, arthritis, morbid obesity Time spent for discharge: 45 min Core Measure Documentation - Palliative Care Palliative Care/ Comfort Measures: Not Applicable - Core Measures Any of the following diagnoses?: heart failure - Heart Failure Discharge Requirements JESENIA/ARB for LVSD if EF <40%: No Reason for no JESENIA/ARB: Renal impairment Beta franck at discharge: No Reason for no beta franck on DC: Medical contraindication (Patient currently on calcium channel blockers instead) Exam - Constitutional Vitals: Temp Pulse Resp BP Pulse Ox 98.1 F 91 H 18 118/52 94 03/07/22 08:13 03/07/22 08:13 03/07/22 03:57 03/07/22 08:13 03/07/22 09:40 General appearance: Present: no acute distress, well-nourished, obese - EENT Eyes: Present: PERRL, EOM intact ENT: hearing intact, clear oral mucosa, dentition normal - Neck Neck: Present: supple, normal ROM - Respiratory Respiratory effort: normal Respiratory: bilateral: diminished (On 4 L nasal cannula (baseline)) - Cardiovascular Rhythm: irregularly irregular Heart Sounds: Present: S1 & S2 - Extremities Extremities: no ischemia, pulses intact, pulses symmetrical, No edema, normal temperature, normal color Peripheral Pulses: within normal limits - Abdominal General gastrointestinal: Present: soft, non-tender, non-distended, normal bowel sounds Female genitourinary: Present: deferred - Rectal Rectal Exam: deferred - Integumentary Integumentary: Present: clear, warm, dry - Musculoskeletal Musculoskeletal: strength equal bilaterally - Psychiatric Psychiatric: appropriate mood/affect, intact judgment & insight, memory intact, cooperative - Neurologic Neurologic: CNII-XII intact - Allied Health Allied health notes reviewed: nursing Plan Activity: advance as tolerated Diet: low salt Special Instructions: restrict fluid intake to (2 L/day) Additional Instructions: Patient is a 61-year-old female past medical history of morbid obesity, arthritis, chronic systolic heart failure, COPD, hypertension, pulmonary embolism on Eliquis (5 mg twice daily), GERD, and hyperlipidemia presented to the ED with complaints of chest tightness, shortness of breath, and a burning sensation in her upper abdomen. Patient also endorsed diffuse edema and feeling as if her "Lasix is not working". Patient was recently discharged from [facility] for the same complaints last week, and she expressed that she did not feel that she was able to take care of herself upon her most recent discharge. Patient endorses being compliant with her medications and "doing everything that she supposed to do". Patient also endorsed that she was supposed to have home physical therapy and Occupational Therapy that have yet to start. In the ED, the patient was hemodynamically stable except for oxygen saturation of 91% requiring 4 L nasal cannula. Patient's labs revealed unremarkable troponins x2 and BNP of 720. Patient was admitted for heart failure exacerbation. Patient underwent IV diuresis, fluid restriction, and counseling regarding medication compliance, fluid restriction, and salt restriction. Patient expresses understanding. Physical therapy recommended subacute rehab; however, prior attempts to have the patient admitted for SNF were unsuccessful. Patient will be discharging home with home health services, a bariatric hospital bed, and additional services. Patient is medically clear for discharge. Care Plan Goals: Please follow with your primary care provider and tea plantation worker at discharge. Please have your primary care provider to refer you to a neurologist to evaluate your upper extremity tremors. We will refer you to our bariatric surgeon Dr. Quintero for evaluation for weight loss surgery. Losing weight will greatly improve your quality of life. Assessment: Patient is a 61-year-old female past medical history of morbid obesity, arthritis, chronic systolic heart failure, COPD, hypertension, pulmonary embolism on Eliquis (5 mg twice daily), GERD, and hyperlipidemia presented to the ED with complaints of chest tightness, shortness of breath, and a burning sensation in her upper abdomen. Patient also endorsed diffuse edema and feeling as if her "Lasix is not working". Patient was recently discharged from [facility] for the same complaints last week, and she expressed that she did not feel that she was able to take care of herself upon her most recent discharge. Patient endorses being compliant with her medications and "doing everything that she supposed to do". Patient also endorsed that she was supposed to have home physical therapy and Occupational Therapy that have yet to start. In the ED, the patient was hemodynamically stable except for oxygen saturation of 91% requiring 4 L nasal cannula. Patient's labs revealed unremarkable troponins x2 and BNP of 720. Patient was admitted for heart failure exacerbation. Patient underwent IV diuresis, fluid restriction, and counseling regarding medication compliance, fluid restriction, and salt restriction. Patient expresses understanding. Physical therapy recommended subacute rehab; however, prior attempts to have the patient admitted for SNF were unsuccessful. Patient will be discharging home with home health services, a bariatric hospital bed, and additional services. Patient is medically clear for discharge. Follow up with: AKUA WINTER MD [Primary Care Provider] - 3-5 Days AMARJIT QUINTERO MD [Staff Physician] - 10 Days Prescriptions: AtorvaSTATin [Lipitor] 40 mg PO QHS 30 Days #30 tablet Aspirin [Aspirin BABY CHEW TAB] 81 mg PO QDAY 30 Days #30 tab.chew dilTIAZem CD [Cardizem CD] 240 mg PO QDAY 30 Days #30 cap Furosemide [Lasix TAB] 40 mg PO QDAY 30 Days #30 tab
[2022-03-07] MEDS: oxyCODONE /ACETAMINOPHEN 5-325MG TAB PO PRN (13:02)
[2022-03-08] MEDS: GABAPENTIN 400 MG CAP PO SCH ×3 (08:50→21:25)
[2022-03-08] MEDS: PANTOPRAZOLE 40 MG TAB PO SCH (08:50)
[2022-03-08] MEDS: amLODIPine 10 MG TAB PO SCH (11:35)
[2022-03-08] MEDS: AMIODARONE 200 MG TAB PO SCH (11:36)
[2022-03-08] MEDS: ASPIRIN 81 MG TAB CHEW PO SCH (11:36)
[2022-03-08] MEDS: DOCUSATE SODIUM 100 MG CAP PO SCH (11:36)
[2022-03-08] MEDS: APIXABAN 5 MG TAB PO SCH ×2 (11:36→21:26)
[2022-03-08] MEDS: FUROSEMIDE 40 MG TAB PO SCH (11:36)
[2022-03-08] MEDS: dilTIAZem CD 240 MG CAP PO SCH (11:37)
[2022-03-08] MEDS: FLUTICASONE PROPIONATE NASAL SPRAY 16 GM NS SCH (12:44)
[2022-03-08] MEDS: CLOBETASOL 0.05% CREAM 15 GM TP SCH (15:44)
--- NOTE | 2022-03-08 17:15 | Progress Note ---
Assessment and Plan Assessment and plan: Patient is a 61-year-old female past medical history of morbid obesity, arthritis, chronic systolic heart failure, COPD, hypertension, pulmonary embolism on Eliquis (5 mg twice daily), GERD, and hyperlipidemia presented to the ED with complaints of chest tightness, shortness of breath, and a burning sensation in her upper abdomen. Patient also endorsed diffuse edema and feeling as if her "Lasix is not working". Patient was recently discharged from [facility] for the same complaints last week, and she expressed that she did not feel that she was able to take care of herself upon her most recent discharge. Patient endorses being compliant with her medications and "doing everything that she supposed to do". Patient also endorsed that she was supposed to have home physical therapy and Occupational Therapy that have yet to start. In the ED, the patient was hemodynamically stable except for oxygen saturation of 91% requiring 4 L nasal cannula. Patient's labs revealed unremarkable troponins x2 and BNP of 720. Patient was admitted for heart failure exacerbation. #Acute on chronic systolic heart failureresolved - Continue CHF exacerbation protocol: Telemetry, Strict I/O, monitor urine output every shift, daily weights, afterload reduction, low-sodium diet, and fluid restriction of approximately 1.5 mL/day, IV Lasix 40 mg twice daily - Supplemental oxygen: 4 L nasal cannula - ProBNP on admission: 719 - TTE (01/29/2022) revealing EF 55% with normal-sized LV, normal LV systolic function, mild concentric LVH, severely dilated RV, mildly hypokinetic RV, moderately dilated LA, severely dilated RA, moderate to severe tricuspid regurgitation, severe pulmonary hypertension, and RVSP of 65-70 mmHg - Continue to monitor #Acute on chronic hypoxic respiratory failureresolved - etiology: Acute on chronic systolic heart failure - baseline oxygen requirements: 4L nasal cannula - supplemental oxygen: 5 L nasal cannula-should improve as acute heart failure resolves - Continue protocol: continue pulse oximetry, wean oxygen as tolerated, ordered incentive spirometry and educated patient on how to use it and its importance. - continue to monitor #History of pulmonary embolism #Atrial fibrillation Continue home Eliquis 5 mg twice daily, amiodarone 200 mg twice daily #CKD stage III Creatinine 1.8 (baseline 1.61.9) Renally dose medications and avoid nephrotoxic drugs. #Hypertension #Hyperlipidemia - home medications: Atorvastatin 40 mg daily, amlodipine 10 mg daily - current medications: Atorvastatin 40 mg daily, amlodipine 10 mg daily - SBP goal <160 and DBP goal <90 while inpatient - continue to monitor #COPD Continue DuoNebs and albuterol nebs as needed #GERD Continue home pantoprazole 40 mg daily #Normocytic anemia Hemoglobin 9.6 Likely secondary to anemia of chronic disease. Transfuse if hemoglobin <7 or patient become symptomatic. #Arthritis Continue analgesics as needed #Morbid obesity #Weight loss counseling #Exercise counseling - BMI 66.6 - Counseled patient on the importance of weight loss, incorporating exercise, and dietary changes (lean meats, fresh fruits and vegetables, and water intake). Patient expresses understanding. - Time: +15 min #Discharge planning - Patient is pending discharge appeal resolution. - Case management has been made aware. - Discharge is tentatively 48-72 hours Disposition Plan: continue medical management Total Time Spent with Patient (Minutes): 45 minutes History Interval history: No acute events overnight. Hospitalist Physical - Constitutional Vitals: Temp Pulse Resp BP Pulse Ox 98.1 F 79 18 112/49 91 03/08/22 16:08 03/08/22 16:08 03/08/22 16:08 03/08/22 16:08 03/08/22 16:08 General appearance: Present: no acute distress, well-nourished, obese - EENT Eyes: Present: PERRL, EOM intact ENT: hearing intact, clear oral mucosa, dentition normal - Neck Neck: Present: supple, normal ROM - Respiratory Respiratory effort: normal Respiratory: bilateral: diminished (on 4L nasal cannula (baseline oxygen requirement)) - Cardiovascular Rhythm: regular Heart Sounds: Present: S1 & S2 - Extremities Extremities: no ischemia, pulses intact, pulses symmetrical, No edema, normal t emperature, normal color Peripheral Pulses: within normal limits - Abdominal General gastrointestinal: soft, non-tender, non-distended, normal bowel sounds - Integumentary Integumentary: Present: clear (Chronic venous stasis of bilateral lower extremities extending to mid vences), warm, dry - Psychiatric Psychiatric: appropriate mood/affect, intact judgment & insight, memory intact, cooperative - Neurologic Neurologic: CNII-XII intact - Allied Health Allied health notes reviewed: nursing, PT, case management HEART Score - HEART Score EKG: Non-specific Age: 45-65 Risk factors: > 3 risk factors or hx of atherosclerotic disease Troponin: Troponin T 0.022 ng/mL (0.00-0.029) 02/27/22 06:46 Troponin: < normal limit - Critical Actions Critical Actions: 4-6 pts:12-16.6% risk of adverse cardiac event. Should be admitted Results - Labs CBC & Chem 7: 02/27/22 00:33 03/06/22 06:08 Labs: Laboratory Last Values WBC 6.1 K/mm3 (4.5-11.0) 02/27/22 00:33 RBC 3.75 M/mm3 (3.65-5.03) 02/27/22 00:33 Hgb 9.6 gm/dl (10.1-14.3) L 02/27/22 00:33 Hct 33.1 % (30.3-42.9) 02/27/22 00:33 MCV 88 fl (79-97) 02/27/22 00:33 MCH 26 pg (28-32) L 02/27/22 00:33 MCHC 29 % (30-34) L 02/27/22 00:33 RDW 19.5 % (13.2-15.2) H 02/27/22 00:33 Plt Count 314 K/mm3 (140-440) 02/27/22 00:33 Lymph % (Auto) Culinary Arts Instructor 02/27/22 00:33 [place] % (Auto) Culinary Arts Instructor 02/27/22 00:33 Eos % (Auto) Culinary Arts Instructor 02/27/22 00:33 Baso % (Auto) Culinary Arts Instructor 02/27/22 00:33 Lymph # (Auto) Culinary Arts Instructor 02/27/22 00:33 [place] # (Auto) Culinary Arts Instructor 02/27/22 00:33 Eos # (Auto) Culinary Arts Instructor 02/27/22 00:33 Baso # (Auto) Culinary Arts Instructor 02/27/22 00:33 Seg Neutrophils % Culinary Arts Instructor 02/27/22 00:33 Seg Neutrophils # Culinary Arts Instructor 02/27/22 00:33 Sodium 141 mmol/L (137-145) 03/06/22 06:08 Potassium 4.6 mmol/L (3.6-5.0) 03/06/22 06:08 Chloride 90.7 mmol/L (98-107) L 03/06/22 06:08 Carbon Dioxide 46 mmol/L (22-30) H* 03/06/22 06:08 Anion Gap 9 mmol/L 03/06/22 06:08 BUN 17 mg/dL (7-17) 03/06/22 06:08 Creatinine 1.4 mg/dL (0.6-1.2) H 03/06/22 06:08 Estimated GFR 46 ml/min 03/06/22 06:08 BUN/Creatinine Ratio 12 % 03/06/22 06:08 Glucose 85 mg/dL (65-100) 03/06/22 06:08 Calcium 10.5 mg/dL (8.4-10.2) H 03/06/22 06:08 Total Bilirubin 0.30 mg/dL (0.1-1.2) 02/27/22 00:33 AST 17 units/L (5-40) 02/27/22 00:33 ALT 15 units/L (7-56) 02/27/22 00:33 Alkaline Phosphatase 143 units/L (35-129) H 02/27/22 00:33 Troponin T 0.022 ng/mL (0.00-0.029) 02/27/22 06:46 NT-Pro-B Natriuret Pep 719.5 pg/mL (0-900) 02/27/22 08:33 Total Protein 7.1 g/dL (6.3-8.2) 02/27/22 00:33 Albumin 3.1 g/dL (3.9-5) L 02/27/22 00:33 Albumin/Globulin Ratio 0.8 % 02/27/22 00:33 SARS-CoV-2 (PCR) Negative (Negative) 03/07/22 15:24 Small/IV: Voiding Method External Female Catheter Active Medications - Current Medications Current Medications: Generic Name Dose Route Start Last Admin Trade Name Freq PRN Reason Stop Dose Admin Acetaminophen 650 mg 02/27/22 10:30 Acetaminophen 325 Mg Tab PO Q4H PRN Pain MILD(1-3)/Fever >100.5/CHAVEZ Albuterol 2 puff 02/28/22 14:00 Albuterol 8.5 Gm Mdi Inhalation IH QID PRN Shortness Of Breath Amiodarone HCl 200 mg 02/27/22 11:00 03/08/22 11:36 Amiodarone 200 Mg Tab PO 200 mg QDAY MARCELLA Administration Amlodipine Besylate 10 mg 02/28/22 10:00 03/08/22 11:35 Amlodipine 10 Mg Tab PO 10 mg QDAY MARCELLA Administration Apixaban 5 mg 02/27/22 11:00 03/08/22 11:36 Apixaban 5 Mg Tab PO 5 mg Q12HR MARCELLA Administration Protocol Aspirin 81 mg 02/27/22 11:00 03/08/22 11:36 Aspirin 81 Mg Tab Chew PO 81 mg QDAY MARCELLA Administration Atorvastatin Calcium 40 mg 03/06/22 22:00 03/07/22 21:06 Atorvastatin 20 Mg Tab PO 40 mg QHS MARCELLA Administration Clobetasol Propionate 1 applic 03/04/22 22:00 03/08/22 15:44 Clobetasol 0.05% Cream 15 Gm TP Not Given BID [facility] Diltiazem HCl 240 mg 02/28/22 12:00 03/08/22 11:37 Diltiazem Cd 240 Mg Cap PO 240 mg QDAY MARCELLA Administration Docusate Sodium 100 mg 02/27/22 22:00 03/08/22 11:36 Docusate Sodium 100 Mg Cap PO Not Given BID [facility] Fluticasone Propionate 50 mcg 03/01/22 10:00 03/07/22 11:05 Fluticasone Propionate Nasal [place] 16 Gm NS 50 mcg QDAY [facility] Administration Furosemide 40 mg 03/02/22 10:00 03/08/22 11:36 Furosemide 40 Mg Tab PO 40 mg QDAY MARCELLA Administration Gabapentin 1,200 mg 02/28/22 14:00 03/08/22 15:47 Gabapentin 400 Mg Cap PO 1,200 mg TID MARCELLA Administration Loperamide HCl 2 mg 02/28/22 12:00 03/01/22 09:27 Loperamide 2 Mg Cap PO 2 mg Q2H PRN Administration Diarrhea Morphine Sulfate 2 mg 02/27/22 10:30 Morphine 2 Mg/1 Ml Inj IV Q4H PRN Pain , Severe (7-10) Ondansetron HCl 4 mg 02/27/22 10:00 Ondansetron 4 Mg/2 Ml Inj IV Q8H PRN Nausea And Vomiting Oxycodone/Acetaminophen 1 tab 02/27/22 10:30 03/07/22 13:02 Oxycodone /Acetaminophen 5-325mg Tab PO 1 tab Q6H PRN Administration Pain, Moderate (4-6) Pantoprazole Sodium 40 mg 02/28/22 07:30 03/08/22 08:50 Pantoprazole 40 Mg Tab PO 40 mg DAILY@0730 MARCELLA Administration Sodium Chloride 10 ml 02/27/22 11:00 03/07/22 21:07 Sodium Chloride 0.9% 10 Ml Flush Syringe IV 10 ml BID MARCELLA Administration Sodium Chloride 10 ml 02/27/22 11:00 Sodium Chloride 0.9% 10 Ml Flush Syringe IV PRN PRN LINE FLUSH Nutrition/Malnutrition Assess - Dietary Evaluation Nutrition/Malnutrition Findings: Nutrition Notes Start: 03/07/22 18:19 Freq: Status: Active Protocol: Document 03/07/22 18:19 ANU (Rec: 03/07/22 18:29 ANU [id number]) Nutrition Notes Need for Assessment generated from: LOS Initial or Follow up Assessment Current Diagnosis CKD(stage I-IV),COPD, Hypertension,Respiratory Failure,Hyperlipidemia Other Pertinent Diagnosis CHF, Cor Pulmonale, Pulmonary HTN, Anemia, Atrial Fibrilation, ... Current Diet Cardiac Diet (since L 02/27). Labs/Tests 03/06: Cl 90.7, CO2 46, Crea 1 .4, Ca 10.5. Pertinent Medications 03/07: Nutritionally unremarkable. 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 Pt's PO intake of meals has been Good (100%), according to ADL notes. Pt is on Nasal Cannula, O2 sturation @ 94%, according to Physical Assessment History notes. Plans for discharge Pt home with Home-Health Services, according to Progress notes. Percent of energy/protein needs met: Prescribed Cardiac Diet provides for energy/protein needs (2,230 Kcal/85 g) during LOS. Burn Absent Trauma Absent GI Symptoms None Food Allergy Yes Skin Integrity/Comment Assessment WNL. Current % PO Good (75-100%) Minimum of two criteria No Fluid Accumulation N/A Reduced Medical I D Sales Strength N/A (non-severe) Protein-Calorie Malnutrition N\\A #1 Nutrition Diagnosis No nutrition diagnosis at this time Is patient on ventilator? No Is Patient Ambulatory and/or Out of Bed Yes REE-([place]-St. Jeor-ambulatory/OOB) [ 3121.144 NUTR.MSJOOB] Kcal/Kg value to use for calculation 9 Approximate Energy Requirements Using 1652 kcal/Kg Calculation Used for Recommendations Kcal/kg Additional Notes Protein: <2.5 g/Kg IBW; 143 g/ day. Fluids: 1 ml/Kcal, or as per MD. Nutrition Intervention Change Diet Order: Continue Cardiac Diet as tolerated. Follow-Up By: 03/14/22 Additional Comments Continue monitoring food tolerance, %PO intake of meals , and BM.
[2022-03-08] MEDS: oxyCODONE /ACETAMINOPHEN 5-325MG TAB PO PRN (21:30)
[2022-03-09] MEDS: CLOBETASOL 0.05% CREAM 15 GM TP SCH ×3 (03:39→21:50)
[2022-03-09] MEDS: DOCUSATE SODIUM 100 MG CAP PO SCH ×3 (03:39→21:52)
[2022-03-09] MEDS: GABAPENTIN 400 MG CAP PO SCH ×3 (10:46→21:48)
--- NOTE | 2022-03-09 14:06 | Event Note ---
Date: 03/09/22 The patient will be tranported home via EMS today at approximately 6pm. Please refer to the discharge summary on 03/06/2022.
[2022-03-09] MEDS: ASPIRIN 81 MG TAB CHEW PO SCH (14:45)
[2022-03-09] MEDS: amLODIPine 10 MG TAB PO SCH (14:45)
[2022-03-09] MEDS: dilTIAZem CD 240 MG CAP PO SCH (14:46)
[2022-03-09] MEDS: AMIODARONE 200 MG TAB PO SCH (14:46)
[2022-03-09] MEDS: PANTOPRAZOLE 40 MG TAB PO SCH (14:46)
[2022-03-09] MEDS: FUROSEMIDE 40 MG TAB PO SCH (14:46)
[2022-03-09] MEDS: APIXABAN 5 MG TAB PO SCH ×2 (14:47→21:48)
[2022-03-09] MEDS: FLUTICASONE PROPIONATE NASAL SPRAY 16 GM NS SCH (14:48)
[2022-03-10 07:33] VITALS: BP 112/44
[2022-03-10] MEDS: AMIODARONE 200 MG TAB PO SCH (10:26)
[2022-03-10] MEDS: ASPIRIN 81 MG TAB CHEW PO SCH (10:26)
[2022-03-10] MEDS: PANTOPRAZOLE 40 MG TAB PO SCH (10:26)
[2022-03-10] MEDS: APIXABAN 5 MG TAB PO SCH (10:26)
[2022-03-10] MEDS: amLODIPine 10 MG TAB PO SCH (10:26)
[2022-03-10] MEDS: FUROSEMIDE 40 MG TAB PO SCH (10:26)
[2022-03-10] MEDS: GABAPENTIN 400 MG CAP PO SCH (10:27)
[2022-03-10] MEDS: CLOBETASOL 0.05% CREAM 15 GM TP SCH (10:27)
[2022-03-10] MEDS: FLUTICASONE PROPIONATE NASAL SPRAY 16 GM NS SCH (10:27)
[2022-03-10] MEDS: DOCUSATE SODIUM 100 MG CAP PO SCH (10:28)
[2022-03-10] MEDS: dilTIAZem CD 240 MG CAP PO SCH (10:28)
--- NOTE | 2022-03-10 10:49 | Progress Note ---
Assessment and Plan Assessment and plan: Patient is a 61-year-old female past medical history of morbid obesity, arthritis, chronic systolic heart failure, COPD, hypertension, pulmonary embolism on Eliquis (5 mg twice daily), GERD, and hyperlipidemia presented to the ED with complaints of chest tightness, shortness of breath, and a burning sensation in her upper abdomen. Patient also endorsed diffuse edema and feeling as if her "Lasix is not working". Patient was recently discharged from [facility] for the same complaints last week, and she expressed that she did not feel that she was able to take care of herself upon her most recent discharge. Patient endorses being compliant with her medications and "doing everything that she supposed to do". Patient also endorsed that she was supposed to have home physical therapy and Occupational Therapy that have yet to start. In the ED, the patient was hemodynamically stable except for oxygen saturation of 91% requiring 4 L nasal cannula. Patient's labs revealed unremarkable troponins x2 and BNP of 720. Patient was admitted for heart failure exacerbation. #Acute on chronic systolic heart failureresolved - Continue CHF exacerbation protocol: Telemetry, Strict I/O, monitor urine output every shift, daily weights, afterload reduction, low-sodium diet, and fluid restriction of approximately 1.5 mL/day, IV Lasix 40 mg twice daily - Supplemental oxygen: 4 L nasal cannula - ProBNP on admission: 719 - TTE (01/29/2022) revealing EF 55% with normal-sized LV, normal LV systolic function, mild concentric LVH, severely dilated RV, mildly hypokinetic RV, moderately dilated LA, severely dilated RA, moderate to severe tricuspid regurgitation, severe pulmonary hypertension, and RVSP of 65-70 mmHg - Continue to monitor #Acute on chronic hypoxic respiratory failureresolved - etiology: Acute on chronic systolic heart failure - baseline oxygen requirements: 4L nasal cannula - supplemental oxygen: 5 L nasal cannula-should improve as acute heart failure resolves - Continue protocol: continue pulse oximetry, wean oxygen as tolerated, ordered incentive spirometry and educated patient on how to use it and its importance. - continue to monitor #History of pulmonary embolism #Atrial fibrillation Continue home Eliquis 5 mg twice daily, amiodarone 200 mg twice daily #CKD stage III Creatinine 1.8 (baseline 1.61.9) Renally dose medications and avoid nephrotoxic drugs. #Hypertension #Hyperlipidemia - home medications: Atorvastatin 40 mg daily, amlodipine 10 mg daily - current medications: Atorvastatin 40 mg daily, amlodipine 10 mg daily - SBP goal <160 and DBP goal <90 while inpatient - continue to monitor #COPD Continue DuoNebs and albuterol nebs as needed #GERD Continue home pantoprazole 40 mg daily #Normocytic anemia Hemoglobin 9.6 Likely secondary to anemia of chronic disease. Transfuse if hemoglobin <7 or patient become symptomatic. #Arthritis Continue analgesics as needed #Morbid obesity #Weight loss counseling #Exercise counseling - BMI 66.6 - Counseled patient on the importance of weight loss, incorporating exercise, and dietary changes (lean meats, fresh fruits and vegetables, and water intake). Patient expresses understanding. - Time: +15 min #Discharge planning - Patient is pending discharge appeal resolution. - Case management has been made aware. - Discharge is tentatively 48-72 hours Disposition Plan: pending discharge home Total Time Spent with Patient (Minutes): 45 min History Interval history: No acute events overnight. Hospitalist Physical - Constitutional Vitals: Temp Pulse Resp BP Pulse Ox 97.7 F 79 18 112/44 94 03/10/22 07:32 03/10/22 07:32 03/10/22 07:32 03/10/22 07:32 03/10/22 08:00 General appearance: Present: no acute distress, well-nourished, obese - EENT Eyes: Present: PERRL, EOM intact ENT: hearing intact, clear oral mucosa, dentition normal - Neck Neck: Present: supple, normal ROM - Respiratory Respiratory effort: normal Respiratory: bilateral: diminished (On 4 L nasal cannula (baseline)) - Cardiovascular Rhythm: regular Heart Sounds: Present: S1 & S2 - Extremities Extremities: no ischemia, pulses intact, pulses symmetrical, No edema, normal temperature, normal color Extremity abnormal: other (Chronic venous stasis bilateral lower extremities) Peripheral Pulses: within normal limits - Abdominal General gastrointestinal: soft, non-tender, non-distended, normal bowel sounds, other (Extensive pannus overhanging pubic area) - Integumentary Integumentary: Present: clear, warm, dry - Psychiatric Psychiatric: appropriate mood/affect, intact judgment & insight, memory intact, cooperative - Neurologic Neurologic: CNII-XII intact, moves all extremities - Allied Health Allied health notes reviewed: nursing, social work, case management HEART Score - HEART Score EKG: Non-specific Age: 45-65 Risk factors: > 3 risk factors or hx of atherosclerotic disease Troponin: Troponin T 0.022 ng/mL (0.00-0.029) 02/27/22 06:46 Troponin: < normal limit - Critical Actions Critical Actions: 4-6 pts:12-16.6% risk of adverse cardiac event. Should be admitted Results - Labs CBC & Chem 7: 02/27/22 00:33 03/06/22 06:08 Labs: Laboratory Last Values WBC 6.1 K/mm3 (4.5-11.0) 02/27/22 00:33 RBC 3.75 M/mm3 (3.65-5.03) 02/27/22 00:33 Hgb 9.6 gm/dl (10.1-14.3) L 02/27/22 00:33 Hct 33.1 % (30.3-42.9) 02/27/22 00:33 MCV 88 fl (79-97) 02/27/22 00:33 MCH 26 pg (28-32) L 02/27/22 00:33 MCHC 29 % (30-34) L 02/27/22 00:33 RDW 19.5 % (13.2-15.2) H 02/27/22 00:33 Plt Count 314 K/mm3 (140-440) 02/27/22 00:33 Lymph % (Auto) Program Coordinator 02/27/22 00:33 [place] % (Auto) Program Coordinator 02/27/22 00:33 Eos % (Auto) Program Coordinator 02/27/22 00:33 Baso % (Auto) Program Coordinator 02/27/22 00:33 Lymph # (Auto) Program Coordinator 02/27/22 00:33 [place] # (Auto) Program Coordinator 02/27/22 00:33 Eos # (Auto) Program Coordinator 02/27/22 00:33 Baso # (Auto) Program Coordinator 02/27/22 00:33 Seg Neutrophils % Program Coordinator 02/27/22 00:33 Seg Neutrophils # Program Coordinator 02/27/22 00:33 Sodium 141 mmol/L (137-145) 03/06/22 06:08 Potassium 4.6 mmol/L (3.6-5.0) 03/06/22 06:08 Chloride 90.7 mmol/L (98-107) L 03/06/22 06:08 Carbon Dioxide 46 mmol/L (22-30) H* 03/06/22 06:08 Anion Gap 9 mmol/L 03/06/22 06:08 BUN 17 mg/dL (7-17) 03/06/22 06:08 Creatinine 1.4 mg/dL (0.6-1.2) H 03/06/22 06:08 Estimated GFR 46 ml/min 03/06/22 06:08 BUN/Creatinine Ratio 12 % 03/06/22 06:08 Glucose 85 mg/dL (65-100) 03/06/22 06:08 Calcium 10.5 mg/dL (8.4-10.2) H 03/06/22 06:08 Total Bilirubin 0.30 mg/dL (0.1-1.2) 02/27/22 00:33 AST 17 units/L (5-40) 02/27/22 00:33 ALT 15 units/L (7-56) 02/27/22 00:33 Alkaline Phosphatase 143 units/L (35-129) H 02/27/22 00:33 Troponin T 0.022 ng/mL (0.00-0.029) 02/27/22 06:46 NT-Pro-B Natriuret Pep 719.5 pg/mL (0-900) 02/27/22 08:33 Total Protein 7.1 g/dL (6.3-8.2) 02/27/22 00:33 Albumin 3.1 g/dL (3.9-5) L 02/27/22 00:33 Albumin/Globulin Ratio 0.8 % 02/27/22 00:33 SARS-CoV-2 (PCR) Negative (Negative) 03/07/22 15:24 Small/IV: Voiding Method External Female Catheter Active Medications - Current Medications Current Medications: Generic Name Dose Route Start Last Admin Trade Name Freq PRN Reason Stop Dose Admin Acetaminophen 650 mg 02/27/22 10:30 Acetaminophen 325 Mg Tab PO Q4H PRN Pain MILD(1-3)/Fever >100.5/CHAVEZ Albuterol 2 puff 02/28/22 14:00 Albuterol 8.5 Gm Mdi Inhalation IH QID PRN Shortness Of Breath Amiodarone HCl 200 mg 02/27/22 11:00 03/10/22 10:26 Amiodarone 200 Mg Tab PO 200 mg QDAY MARCELLA Administration Amlodipine Besylate 10 mg 02/28/22 10:00 03/10/22 10:26 Amlodipine 10 Mg Tab PO 10 mg QDAY MARCELLA Administration Apixaban 5 mg 02/27/22 11:00 03/10/22 10:26 Apixaban 5 Mg Tab PO 5 mg Q12HR MARCELLA Administration Protocol Aspirin 81 mg 02/27/22 11:00 03/10/22 10:26 Aspirin 81 Mg Tab Chew PO 81 mg QDAY MARCELLA Administration Atorvastatin Calcium 40 mg 03/06/22 22:00 03/09/22 21:49 Atorvastatin 20 Mg Tab PO 40 mg QHS MARCELLA Administration Clobetasol Propionate 1 applic 03/04/22 22:00 03/10/22 10:27 Clobetasol 0.05% Cream 15 Gm TP Not Given BID MARCELLA Diltiazem HCl 240 mg 02/28/22 12:00 03/10/22 10:28 Diltiazem Cd 240 Mg Cap PO 240 mg QDAY MARCELLA Administration Docusate Sodium 100 mg 02/27/22 22:00 03/10/22 10:28 Docusate Sodium 100 Mg Cap PO Not Given BID MARCELLA Fluticasone Propionate 50 mcg 03/01/22 10:00 03/10/22 10:27 Fluticasone Propionate Nasal [place] 16 Gm NS Not Given QDAY MARCELLA Furosemide 40 mg 03/02/22 10:00 03/10/22 10:26 Furosemide 40 Mg Tab PO 40 mg QDAY MARCELLA Administration Gabapentin 1,200 mg 02/28/22 14:00 03/10/22 10:27 Gabapentin 400 Mg Cap PO 1,200 mg TID MARCELLA Administration Loperamide HCl 2 mg 02/28/22 12:00 03/01/22 09:27 Loperamide 2 Mg Cap PO 2 mg Q2H PRN Administration Diarrhea Morphine Sulfate 2 mg 02/27/22 10:30 Morphine 2 Mg/1 Ml Inj IV Q4H PRN Pain , Severe (7-10) Ondansetron HCl 4 mg 02/27/22 10:00 Ondansetron 4 Mg/2 Ml Inj IV Q8H PRN Nausea And Vomiting Oxycodone/Acetaminophen 1 tab 02/27/22 10:30 03/08/22 21:30 Oxycodone /Acetaminophen 5-325mg Tab PO 1 tab Q6H PRN Administration Pain, Moderate (4-6) Pantoprazole Sodium 40 mg 02/28/22 07:30 03/10/22 10:26 Pantoprazole 40 Mg Tab PO 40 mg DAILY@0730 MARCELLA Administration Sodium Chloride 10 ml 02/27/22 11:00 03/10/22 10:29 Sodium Chloride 0.9% 10 Ml Flush Syringe IV 10 ml BID MARCELLA Administration Sodium Chloride 10 ml 02/27/22 11:00 Sodium Chloride 0.9% 10 Ml Flush Syringe IV PRN PRN LINE FLUSH Nutrition/Malnutrition Assess - Dietary Evaluation Nutrition/Malnutrition Findings: Nutrition Notes Start: 03/07/22 18:19 Freq: Status: Active Protocol: Document 03/07/22 18:19 ANU (Rec: 03/07/22 18:29 ANU [id number]) Nutrition Notes Need for Assessment generated from: LOS Initial or Follow up Assessment Current Diagnosis CKD(stage I-IV),COPD, Hypertension,Respiratory Failure,Hyperlipidemia Other Pertinent Diagnosis CHF, Cor Pulmonale, Pulmonary HTN, Anemia, Atrial Fibrilation, ... Current Diet Cardiac Diet (since L 02/27). Labs/Tests 03/06: Cl 90.7, CO2 46, Crea 1 .4, Ca 10.5. Pertinent Medications 03/07: Nutritionally unremarkable. 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 Pt's PO intake of meals has been Good (100%), according to ADL notes. Pt is on Nasal Cannula, O2 sturation @ 94%, according to Physical Assessment History notes. Plans for discharge Pt home with Home-Health Services, according to Progress notes. Percent of energy/protein needs met: Prescribed Cardiac Diet provides for energy/protein needs (2,230 Kcal/85 g) during LOS. Burn Absent Trauma Absent GI Symptoms None Food Allergy Yes Skin Integrity/Comment Assessment WNL. 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 No Is Patient Ambulatory and/or Out of Bed Yes REE-([place]-St. Jeor-ambulatory/OOB) [ 3121.144 NUTR.MSJOOB] Kcal/Kg value to use for calculation 9 Approximate Energy Requirements Using 1652 kcal/Kg Calculation Used for Recommendations Kcal/kg Additional Notes Protein: <2.5 g/Kg IBW; 143 g/ day. Fluids: 1 ml/Kcal, or as per MD. Nutrition Intervention Change Diet Order: Continue Cardiac Diet as tolerated. Follow-Up By: 03/14/22 Additional Comments Continue monitoring food tolerance, %PO intake of meals , and BM.
--- NOTE | 2022-03-10 10:50 | Progress Note ---
Assessment and Plan Assessment and plan: Patient is a 61-year-old female past medical history of morbid obesity, arthritis, chronic systolic heart failure, COPD, hypertension, pulmonary embolism on Eliquis (5 mg twice daily), GERD, and hyperlipidemia presented to the ED with complaints of chest tightness, shortness of breath, and a burning sensation in her upper abdomen. Patient also endorsed diffuse edema and feeling as if her "Lasix is not working". Patient was recently discharged from [facility] for the same complaints last week, and she expressed that she did not feel that she was able to take care of herself upon her most recent discharge. Patient endorses being compliant with her medications and "doing everything that she supposed to do". Patient also endorsed that she was supposed to have home physical therapy and Occupational Therapy that have yet to start. In the ED, the patient was hemodynamically stable except for oxygen saturation of 91% requiring 4 L nasal cannula. Patient's labs revealed unremarkable troponins x2 and BNP of 720. Patient was admitted for heart failure exacerbation. #Acute on chronic systolic heart failureresolved - Continue CHF exacerbation protocol: Telemetry, Strict I/O, monitor urine output every shift, daily weights, afterload reduction, low-sodium diet, and fluid restriction of approximately 1.5 mL/day, IV Lasix 40 mg twice daily - Supplemental oxygen: 4 L nasal cannula - ProBNP on admission: 719 - TTE (01/29/2022) revealing EF 55% with normal-sized LV, normal LV systolic function, mild concentric LVH, severely dilated RV, mildly hypokinetic RV, moderately dilated LA, severely dilated RA, moderate to severe tricuspid regurgitation, severe pulmonary hypertension, and RVSP of 65-70 mmHg - Continue to monitor #Acute on chronic hypoxic respiratory failureresolved - etiology: Acute on chronic systolic heart failure - baseline oxygen requirements: 4L nasal cannula - supplemental oxygen: 5 L nasal cannula-should improve as acute heart failure resolves - Continue protocol: continue pulse oximetry, wean oxygen as tolerated, ordered incentive spirometry and educated patient on how to use it and its importance. - continue to monitor #History of pulmonary embolism #Atrial fibrillation Continue home Eliquis 5 mg twice daily, amiodarone 200 mg twice daily #CKD stage III Creatinine 1.8 (baseline 1.61.9) Renally dose medications and avoid nephrotoxic drugs. #Hypertension #Hyperlipidemia - home medications: Atorvastatin 40 mg daily, amlodipine 10 mg daily - current medications: Atorvastatin 40 mg daily, amlodipine 10 mg daily - SBP goal <160 and DBP goal <90 while inpatient - continue to monitor #COPD Continue DuoNebs and albuterol nebs as needed #GERD Continue home pantoprazole 40 mg daily #Normocytic anemia Hemoglobin 9.6 Likely secondary to anemia of chronic disease. Transfuse if hemoglobin <7 or patient become symptomatic. #Arthritis Continue analgesics as needed #Morbid obesity #Weight loss counseling #Exercise counseling - BMI 66.6 - Counseled patient on the importance of weight loss, incorporating exercise, and dietary changes (lean meats, fresh fruits and vegetables, and water intake). Patient expresses understanding. - Time: +15 min #Discharge planning - Patient is pending discharge appeal resolution. - Case management has been made aware. - Discharge is tentatively 48-72 hours Disposition Plan: Pending discharge home today Total Time Spent with Patient (Minutes): 30 minutes History Interval history: No acute events overnight. Hospitalist Physical - Constitutional Vitals: Temp Pulse Resp BP Pulse Ox 97.7 F 79 18 112/44 94 03/10/22 07:32 03/10/22 07:32 03/10/22 07:32 03/10/22 07:32 03/10/22 08:00 General appearance: Present: no acute distress, well-nourished, obese - EENT Eyes: Present: PERRL, EOM intact ENT: hearing intact, clear oral mucosa, dentition normal - Neck Neck: Present: supple, normal ROM - Respiratory Respiratory effort: normal Respiratory: bilateral: diminished (On 4 L nasal cannula (baseline)) - Cardiovascular Rhythm: regular Heart Sounds: Present: S1 & S2 - Extremities Extremities: no ischemia, pulses intact, pulses symmetrical, No edema, normal temperature, normal color Peripheral Pulses: within normal limits - Abdominal General gastrointestinal: soft, non-tender, non-distended, normal bowel sounds - Integumentary Integumentary: Present: clear, warm, dry - Psychiatric Psychiatric: appropriate mood/affect, memory intact, cooperative - Neurologic Neurologic: CNII-XII intact, moves all extremities - Allied Health Allied health notes reviewed: nursing, social work, case management HEART Score - HEART Score EKG: Non-specific Age: 45-65 Risk factors: > 3 risk factors or hx of atherosclerotic disease Troponin: Troponin T 0.022 ng/mL (0.00-0.029) 02/27/22 06:46 Troponin: < normal limit - Critical Actions Critical Actions: 4-6 pts:12-16.6% risk of adverse cardiac event. Should be admitted Results - Labs CBC & Chem 7: 02/27/22 00:33 03/06/22 06:08 Labs: Laboratory Last Values WBC 6.1 K/mm3 (4.5-11.0) 02/27/22 00:33 RBC 3.75 M/mm3 (3.65-5.03) 02/27/22 00:33 Hgb 9.6 gm/dl (10.1-14.3) L 02/27/22 00:33 Hct 33.1 % (30.3-42.9) 02/27/22 00:33 MCV 88 fl (79-97) 02/27/22 00:33 MCH 26 pg (28-32) L 02/27/22 00:33 MCHC 29 % (30-34) L 02/27/22 00:33 RDW 19.5 % (13.2-15.2) H 02/27/22 00:33 Plt Count 314 K/mm3 (140-440) 02/27/22 00:33 Lymph % (Auto) Return To Factory Clerk 02/27/22 00:33 [place] % (Auto) Return To Factory Clerk 02/27/22 00:33 Eos % (Auto) Return To Factory Clerk 02/27/22 00:33 Baso % (Auto) Return To Factory Clerk 02/27/22 00:33 Lymph # (Auto) Return To Factory Clerk 02/27/22 00:33 [place] # (Auto) Return To Factory Clerk 02/27/22 00:33 Eos # (Auto) Return To Factory Clerk 02/27/22 00:33 Baso # (Auto) Return To Factory Clerk 02/27/22 00:33 Seg Neutrophils % Return To Factory Clerk 02/27/22 00:33 Seg Neutrophils # Return To Factory Clerk 02/27/22 00:33 Sodium 141 mmol/L (137-145) 03/06/22 06:08 Potassium 4.6 mmol/L (3.6-5.0) 03/06/22 06:08 Chloride 90.7 mmol/L (98-107) L 03/06/22 06:08 Carbon Dioxide 46 mmol/L (22-30) H* 03/06/22 06:08 Anion Gap 9 mmol/L 03/06/22 06:08 BUN 17 mg/dL (7-17) 03/06/22 06:08 Creatinine 1.4 mg/dL (0.6-1.2) H 03/06/22 06:08 Estimated GFR 46 ml/min 03/06/22 06:08 BUN/Creatinine Ratio 12 % 03/06/22 06:08 Glucose 85 mg/dL (65-100) 03/06/22 06:08 Calcium 10.5 mg/dL (8.4-10.2) H 03/06/22 06:08 Total Bilirubin 0.30 mg/dL (0.1-1.2) 02/27/22 00:33 AST 17 units/L (5-40) 02/27/22 00:33 ALT 15 units/L (7-56) 02/27/22 00:33 Alkaline Phosphatase 143 units/L (35-129) H 02/27/22 00:33 Troponin T 0.022 ng/mL (0.00-0.029) 02/27/22 06:46 NT-Pro-B Natriuret Pep 719.5 pg/mL (0-900) 02/27/22 08:33 Total Protein 7.1 g/dL (6.3-8.2) 02/27/22 00:33 Albumin 3.1 g/dL (3.9-5) L 02/27/22 00:33 Albumin/Globulin Ratio 0.8 % 02/27/22 00:33 SARS-CoV-2 (PCR) Negative (Negative) 03/07/22 15:24 Small/IV: Voiding Method External Female Catheter Active Medications - Current Medications Current Medications: Generic Name Dose Route Start Last Admin Trade Name Freq PRN Reason Stop Dose Admin Acetaminophen 650 mg 02/27/22 10:30 Acetaminophen 325 Mg Tab PO Q4H PRN Pain MILD(1-3)/Fever >100.5/CHAVEZ Albuterol 2 puff 02/28/22 14:00 Albuterol 8.5 Gm Mdi Inhalation IH QID PRN Shortness Of Breath Amiodarone HCl 200 mg 02/27/22 11:00 03/10/22 10:26 Amiodarone 200 Mg Tab PO 200 mg QDAY MARCELLA Administration Amlodipine Besylate 10 mg 02/28/22 10:00 03/10/22 10:26 Amlodipine 10 Mg Tab PO 10 mg QDAY MARCELLA Administration Apixaban 5 mg 02/27/22 11:00 03/10/22 10:26 Apixaban 5 Mg Tab PO 5 mg Q12HR MARCELLA Administration Protocol Aspirin 81 mg 02/27/22 11:00 03/10/22 10:26 Aspirin 81 Mg Tab Chew PO 81 mg QDAY MARCELLA Administration Atorvastatin Calcium 40 mg 03/06/22 22:00 03/09/22 21:49 Atorvastatin 20 Mg Tab PO 40 mg QHS MARCELLA Administration Clobetasol Propionate 1 applic 03/04/22 22:00 03/10/22 10:27 Clobetasol 0.05% Cream 15 Gm TP Not Given BID MARCELLA Diltiazem HCl 240 mg 02/28/22 12:00 03/10/22 10:28 Diltiazem Cd 240 Mg Cap PO 240 mg QDAY MARCELLA Administration Docusate Sodium 100 mg 02/27/22 22:00 03/10/22 10:28 Docusate Sodium 100 Mg Cap PO Not Given BID [facility] Fluticasone Propionate 50 mcg 03/01/22 10:00 03/10/22 10:27 Fluticasone Propionate Nasal [place] 16 Gm NS Not Given QDAY MARCELLA Furosemide 40 mg 03/02/22 10:00 03/10/22 10:26 Furosemide 40 Mg Tab PO 40 mg QDAY MARCELLA Administration Gabapentin 1,200 mg 02/28/22 14:00 03/10/22 10:27 Gabapentin 400 Mg Cap PO 1,200 mg TID MARCELLA Administration Loperamide HCl 2 mg 02/28/22 12:00 03/01/22 09:27 Loperamide 2 Mg Cap PO 2 mg Q2H PRN Administration Diarrhea Morphine Sulfate 2 mg 02/27/22 10:30 Morphine 2 Mg/1 Ml Inj IV Q4H PRN Pain , Severe (7-10) Ondansetron HCl 4 mg 02/27/22 10:00 Ondansetron 4 Mg/2 Ml Inj IV Q8H PRN Nausea And Vomiting Oxycodone/Acetaminophen 1 tab 02/27/22 10:30 03/08/22 21:30 Oxycodone /Acetaminophen 5-325mg Tab PO 1 tab Q6H PRN Administration Pain, Moderate (4-6) Pantoprazole Sodium 40 mg 02/28/22 07:30 03/10/22 10:26 Pantoprazole 40 Mg Tab PO 40 mg DAILY@0730 MARCELLA Administration Sodium Chloride 10 ml 02/27/22 11:00 03/10/22 10:29 Sodium Chloride 0.9% 10 Ml Flush Syringe IV 10 ml BID MARCELLA Administration Sodium Chloride 10 ml 02/27/22 11:00 Sodium Chloride 0.9% 10 Ml Flush Syringe IV PRN PRN LINE FLUSH Nutrition/Malnutrition Assess - Dietary Evaluation Nutrition/Malnutrition Findings: Nutrition Notes Start: 03/07/22 18:19 Freq: Status: Active Protocol: Document 03/07/22 18:19 ANU (Rec: 03/07/22 18:29 ANU [id number]) Nutrition Notes Need for Assessment generated from: LOS Initial or Follow up Assessment Current Diagnosis CKD(stage I-IV),COPD, Hypertension,Respiratory Failure,Hyperlipidemia Other Pertinent Diagnosis CHF, Cor Pulmonale, Pulmonary HTN, Anemia, Atrial Fibrilation, ... Current Diet Cardiac Diet (since L 02/27). Labs/Tests 03/06: Cl 90.7, CO2 46, Crea 1 .4, Ca 10.5. Pertinent Medications 03/07: Nutritionally unremarkable. Height 5 ft 5 in Weight 183.5 kg [place] Body Weight (kg) 56.81 BMI 67.3 Intake Prior to Admission Good Weight change and time frame Pt denies having loss body weight [employer]. 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 Pt's PO intake of meals has been Good (100%), according to ADL notes. Pt is on Nasal Cannula, O2 sturation @ 94%, according to Physical Assessment History notes. Plans for discharge Pt home with Home-Health Services, according to Progress notes. Percent of energy/protein needs met: Prescribed Cardiac Diet provides for energy/protein needs (2,230 Kcal/85 g) during LOS. Burn Absent Trauma Absent GI Symptoms None Food Allergy Yes Skin Integrity/Comment Assessment WNL. Current % PO Good (75-100%) Minimum of two criteria No Fluid Accumulation N/A Reduced Train Planner Strength N/A (non-severe) Protein-Calorie Malnutrition N\\A #1 Nutrition Diagnosis No nutrition diagnosis at this time Is patient on ventilator? No Is Patient Ambulatory and/or Out of Bed Yes REE-([place]-St. Jeor-ambulatory/OOB) [ 3121.144 [id number]] Kcal/Kg value to use for calculation 9 Approximate Energy Requirements Using 1652 kcal/Kg Calculation Used for Recommendations Kcal/kg Additional Notes Protein: <2.5 g/Kg IBW; 143 g/ day. Fluids: 1 ml/Kcal, or as per MD. Nutrition Intervention Change Diet Order: Continue Cardiac Diet as tolerated. Follow-Up By: 03/14/22 Additional Comments Continue monitoring food tolerance, %PO intake of meals , and BM.
== END 2022-03-10 12:25 | disposition hospice, home (50) | DRG 291 ==
LOC: ED 23:06 → 4A 02-27 09:13
PROVIDERS: ADMIT Student in an Organized Health Care Education/Training Program; ATTEND Student in an Organized Health Care Education/Training Program
DX: I13.0 Hypertensive heart and chronic kidney disease with heart failure and stage 1 through stage 4 chronic kidney disease, or unspecified chronic kidney disease (principal); I50.33 Acute on chronic diastolic (congestive) heart failure; J96.21 Acute and chronic respiratory failure with hypoxia; N17.9 Acute kidney failure, unspecified; Z20.822 Contact with and (suspected) exposure to COVID-19; E66.01 Morbid (severe) obesity due to excess calories; M19.90 Unspecified osteoarthritis, unspecified site; J44.9 Chronic obstructive pulmonary disease, unspecified; G62.9 Polyneuropathy, unspecified; E78.5 Hyperlipidemia, unspecified; N18.30 Chronic kidney disease, stage 3 unspecified; D64.9 Anemia, unspecified; Z71.3 Dietary counseling and surveillance; I27.81 Cor pulmonale (chronic); I07.1 Rheumatic tricuspid insufficiency; I48.0 Paroxysmal atrial fibrillation; E87.5 Hyperkalemia; Z51.5 Encounter for palliative care; Z86.711 Personal history of pulmonary embolism; Z79.82 Long term (current) use of aspirin; Z82.49 Family history of ischemic heart disease and other diseases of the circulatory system; Z88.8 Allergy status to other drugs, medicaments and biological substances; Z91.012 Allergy to eggs
CPT/HCPCS: 36415; 71045; 80048; 80053; 83880; 84132; 84484; 85025; 93005; 94640; 94760; G0378; J3490; Q9967; C9113; J1815; J1940; U0003